=== PATIENT | male | born 1955 | race Caucasian/White ===

== ENCOUNTER 2016-04-17 17:00 | Inpatient (IN) | payer OTHER ==
--- NOTE | 2016-04-17 17:15 | PDOC ---
History of Present Illness - General History Source: Patient Exam Limitations: No Limitations - History of Present Illness Initial Comments: 04/17/16 18:17 The patient is a 60 year old male presenting with his , with a significant past medical history of HTN, diabetes, AFIB, CHF, CAD s/p CABG, HLD and CKD, who presents to the emergency department after fall today. The notes that the patient's knees buckled and fell. He denies any loss of consciousness, head trauma or any other kind of trauma. The patient notes that the back of his legs hurt bilaterally, has had chest pain and has been experiencing shortness of breath since last night. He states that hie shortness of breath has been progressively worsening over the last month or so. He describes his chest pain as a pressure, that is mild in nature, without radiation or modifying factors. He reports that he has had a stress test in the past that was within normal limits. He states that the last time he saw his PMD was 03/28/2016. The patient denies chest pain, headache and dizziness. Denies fever, chills, nausea, vomit, diarrhea and constipation. Denies dysuria, frequency, urgency and hematuria. Allergies: Lisinopril, lyrica, gabapentin Past surgical history: CABG (x4) Social history: No alcohol, tobacco or drug use reported PMD: Dr. Anaya ([facility]) <Parag Squires - Last Filed: 04/17/16 19:16> - General History Source: Patient Exam Limitations: No Limitations <Ira Ramires - Last Filed: 04/18/16 09:53> - General Chief Complaint: Pain Stated Complaint: DIMAS LEG PAIN, DIFF BREATHING Time Seen by Provider: 04/17/16 17:14 Past History <Parag Squires - Last Filed: 04/17/16 19:16> - Past Medical History Anemia: Yes Asthma: No Cancer: No Cardiac Disorders: Yes (CAD) CVA: No COPD: No CHF: No Dementia: No Diabetes: Yes (2007) GI Disorders: Yes (GERD) Disorders: No HTN: Yes Hypercholesterolemia: Yes Liver Disease: No Psychiatric Problems: Yes (depression,) Seizures: No Thyroid Disease: No - Surgical History Abdominal Surgery: No Appendectomy: No Cardiac Surgery: Yes (quadriple bypass) Cholecystectomy: No Lung Surgery: No Neurologic Surgery: No Orthopedic Surgery: No - Immunization History Immunization Up to Date: Yes - Psycho/Social/Smoking Cessation Hx Anxiety: No Suicidal Ideation: No Smoking Status: No Smoking History: Former smoker Have you smoked in the past 12 months: No Number of Cigarettes Smoked Daily: 0 If you are a former smoker, when did you quit?: 2000 Hx Alcohol Use: No Drug/Substance Use Hx: No Substance Use Type: None Hx Substance Use Treatment: No <Ira Ramires - Last Filed: 04/18/16 09:53> - Past Medical History Allergies/Adverse Reactions: Allergies Allergy/AdvReac Type Severity Reaction Status Date / Time gabapentin Allergy Severe Verified 04/17/16 17:04 lisinopril Allergy Severe TONGUE Verified 04/17/16 17:04 SWELLING pregabalin [From Lyrica] Allergy Severe Swelling Verified 04/17/16 17:04 Home Medications: Ambulatory Orders Aspirin [ASA -] 81 mg PO DAILY 09/21/15 Carvedilol 25 mg PO BID 09/21/15 Cholecalciferol (Vitamin D3) [Vitamin D3] 1,000 unit PO DAILY 09/21/15 Clopidogrel Bisulfate [Clopidogrel] 75 mg PO DAILY 09/21/15 Fenofibrate 48 mg PO DAILY 09/21/15 Furosemide [Lasix -] 80 mg PO BID 09/21/15 Hydralazine HCl [Apresoline -] 25 mg PO BID 09/21/15 Isosorbide Dinitrate [Isordil -] 10 mg PO BID 09/21/15 Lovastatin [Altoprev] 40 mg PO DAILY 09/21/15 Multivitamins [Multivit ([facility] Formulary)] 1 tab PO DAILY 09/21/15 Sertraline HCl 50 mg PO HS 09/21/15 Trazodone HCl 200 mg PO HS 09/21/15 Diltiazem [Cardizem -] 30 mg PO TID #90 tablet 10/02/15 Sitagliptin Phosphate [Januvia] 25 mg PO DAILY #30 tablet 10/02/15 Tramadol HCl 50 mg PO Q8H PRN #15 tablet MDD 3 10/02/15 Review of Systems - Review of Systems Able to Perform ROS?: Yes Comments:: 04/17/16 18:17 GENERAL/CONSTITUTIONAL: No fever or chills. No weakness. HEAD, EYES, EARS, NOSE AND THROAT: No change in vision. No ear pain or discharge. No sore throat. CARDIOVASCULAR: +Chest pain and shortness of breath RESPIRATORY: No cough, wheezing, or hemoptysis. GASTROINTESTINAL: No nausea, vomiting, diarrhea or constipation. GENITOURINARY: No dysuria, frequency, or change in urination. MUSCULOSKELETAL: No joint or muscle swelling or pain. No neck or back pain. EXTREMITIES: +Bilateral lower extremity pain. SKIN: No rash NEUROLOGIC: No headache, vertigo, loss of consciousness, or change in strength/ sensation. ENDOCRINE: No increased thirst. No abnormal weight change <Parag Squires - Last Filed: 04/17/16 19:16> *Physical Exam - Vital Signs Last Vital Signs Temp Pulse Resp BP Pulse Ox 98.1 F 124 H 26 H 131/61 100 04/17/16 17:00 04/17/16 17:00 04/17/16 17:00 04/17/16 17:00 04/17/16 17:00 - Physical Exam Comments: 04/17/16 18:18 GENERAL: Awake, alert, and fully oriented, in no acute distress HEAD: No signs of trauma, normocephalic, atraumatic EYES: PERRLA, EOMI, sclera anicteric, conjunctiva clear ENT: Auricles normal inspection, hearing grossly normal, nares patent, oropharynx clear without exudates. Moist mucosa NECK: Normal ROM, supple, no lymphadenopathy, JVD, or masses LUNGS: Bibasilar crackles. Dyspnic with any exertion. No distress, speaks full sentences. HEART: Regular rate and rhythm, normal S1 and S2, no murmurs, rubs or gallops, peripheral pulses normal and equal bilaterally. ABDOMEN: +Ventral hernia right upper abdomen. Soft, nontender, normoactive bowel sounds. No guarding, no rebound. EXTREMITIES: 3+ pitting edema to the mid thigh bilaterally. Normal inspection, Normal range of motion. No clubbing or cyanosis. NEUROLOGICAL: Cranial nerves II through XII grossly intact. Normal speech, normal gait, no focal sensorimotor deficits SKIN: +Well healed midline surgical scar to the abdomen. Warm, Dry, normal turgor, no rashes or lesions noted. <Parag Squires - Last Filed: 04/17/16 19:16> Heart Score/ECG Review #1 ECG reviewed & interpreted by me at: 17:55 04/17/16 17:55 Twelve-lead EKG was performed and reviewed by me. There is normal sinus rhythm with a tachycardiac rate of 124 bpm. The axis is normal. The intervals are normal - pr:174ms, QRS:134ms (prolonged), QTc:442ms. <Ira Ramires - Last Filed: 04/18/16 09:53> ED Treatment Course - LABORATORY CBC & Chemistry Diagram: 04/17/16 17:30 04/17/16 17:30 - ADDITIONAL ORDERS Additional order review: Laboratory Results 04/17/16 04/17/16 04/17/16 17:30 17:30 17:30 INR 1.53 H Creatine Kinase 133 Urine Color Yellow Urine Appearance Clear Urine pH 5.0 Ur Specific [place] 1.010 Urine Protein 3+ H Urine Glucose (UA) Negative Urine Ketones Negative Urine Blood 1+ H Urine Nitrite Negative Urine Bilirubin Negative Urine Urobilinogen 0.2 e.u/dl Ur Leukocyte Esterase Trace 04/17/16 17:30 RBC 2.46 L D MCV 88.4 MCHC 32.3 RDW 13.1 MPV 8.3 Neutrophils % 77.3 Lymphocytes % 8.0 D Monocytes % 9.2 D Eosinophils % 3.1 Basophils % 2.4 H D - RADIOLOGY Radiograph Interpretation: 04/17/16 19:16 Chest X-Ray Reviewed by: Dr. Diane Leung Impression: Mild to moderate cardiomegaly without evidence of acute lung disease. - Medications Given in the ED: ED Medications Discontinued Medications Generic Name Dose Route Start Last Admin Trade Name Freq PRN Reason Stop Dose Admin Furosemide 40 mg 04/17/16 17:16 04/17/16 17:35 Lasix Injection - IVPB 04/17/16 17:17 40 mg ONCE ONE Administration <Parag Squires - Last Filed: 04/17/16 19:16> - LABORATORY CBC & Chemistry Diagram: 04/18/16 08:00 04/18/16 08:00 <Ira Ramires - Last Filed: 04/18/16 09:53> Medical Decision Making - Critical Care Time Total Critical Care Time (minutes): 60 Critical Care Statement: The care of this patient involved high complexity decision making to prevent further life threatening deterioration of the patient 's condition and/or to evalute & treat vital organ system(s) failure or risk of failure. - Medical Decision Making 04/17/16 17:14 A portion of this note was documented by scribe services under my direction. I have reviewed the details of the note, within reason, and agree with the documentation with the following case summary and management plan written by me. Nursing documentation reviewed and incorporated into medical decision making THis pt is a 60 yo M with a history of DM, HTN, HLD, CAD s/p CABG, paroxysmal Afib Presenting to the ER with a complaint of shortness of breath since last night Pt compliant with medications Sleeps upright, seated in a chair Limited ability to ambulate - walks a few steps before he gets short of breath Chest pain in bilateral upper chest, described as squeezing, rated 6/10, no radiation No cough No fevers or chills Bilateral lower extremity edema 04/17/16 18:04 Pt given Lasix 40mg IV Laboratory Tests 04/17/16 17:30 WBC 11.0 H Hgb 7.0 L D Hct 21.7 L D Plt Count 310 Neutrophils % 77.3 Lymphocytes % 8.0 D Hgb low Will give Blood with lasix 04/17/16 18:34 Laboratory Tests 04/17/16 04/17/16 17:30 17:30 Sodium 135 L Potassium 4.6 Chloride 98 Carbon Dioxide 18 L D Anion Gap 19 H BUN 141 H* D Creatinine 10.0 H* D Random Glucose 98 Creatine Kinase 133 Troponin I 0.10 D CXR: initial study poor Case reviewed with WET ROLLER Noemi Will admit to [facility] Pt may need HD Will contact Dr Weiss, per hospitalist request Case reviewed with Dr. Neema Brian Pt should be dialyzed in the morning. Patient should be given a total of 100 mg IV Lasix. I have reviewed this plan with the patient. Although initially hesitant to start dialysis when this was discussed with him several years ago by Dr. Jalloh, patient is thinking through the plan to have dialysis now. Pt feels that this will be the end of him to start dialysis He denies recent abx or NSAIDS He continues to make urine Pt will be transferred to [place] at [facility] He remains dyspneic, unable to exert himself, unable to lay flat Clinical Impression: fluid overloading, renal failure 04/18/16 09:52 <Ira Ramires - Last Filed: 04/18/16 09:53> *DC/Admit/Observation/Transfer - Attestations Scribe Attestion: 04/17/16 18:17 Documentation prepared by Parag Squires, acting as medical i d sales for Ira Ramires MD <Parag Squires - Last Filed: 04/17/16 19:16> - Discharge Dispostion Admit: Yes <Ira Ramires - Last Filed: 04/18/16 09:53> Diagnosis at time of Disposition: Renal failure CHF exacerbation Qualifiers: Congestive heart failure type: systolic Qualified Code(s): I50.23 - Acute on chronic systolic (congestive) heart failure Congestive heart failure Qualifiers: Congestive heart failure type: systolic Congestive heart failure chronicity: acute on chronic Qualified Code(s): I50.23 - Acute on chronic systolic ( congestive) heart failure Anemia Qualifiers: Anemia type: unspecified type Qualified Code(s): D64.9 - Anemia, unspecified - Discharge Dispostion Condition at time of disposition: Guarded - Referrals
[2016-04-17] MEDS ORDERED: FUROSEMIDE 40 MG/4 ML INJECTABLE VIAL IVPB ONE ×2 (17:16→18:53)
[2016-04-17 17:52] LABS: URINE APPEARANCE Clear; URINE BILIRUBIN Negative (NEGATIVE); URINE GLUCOSE (UA) Negative (NEGATIVE); URINE KETONE Negative (NEGATIVE); URINE LEUK ESTERASE Trace (NEGATIVE); URINE NITRITE Negative (NEGATIVE); URINE UROBILINOGEN 0.2 E.U/dl (0.2-1.0)
[2016-04-17 17:53] LABS: URINE BLOOD 1+ (NEGATIVE); URINE COLOR YELLOW; URINE PROTEIN 3+ (NEGATIVE)
[2016-04-17 17:54] LABS: MCHC 32.3 g/dl (32.0-35.9)
[2016-04-17 17:56] LABS: BASOPHIL 2.4 % (0-2.0); EOSINOPHIL 3.1 % (0-4.5); MCH 28.5 pg (25.7-33.7); MEAN CELL VOLUME 88.4 fl (80-96); MEAN PLT VOLUME 8.3 fl (7.5-11.1); NEUTROPHILS 77.3 % (42.8-82.8); PLATELET COUNT 310 K/MM3 (134-434); RDW 13.1 % (11.9-15.9)
[2016-04-17 18:04] LABS: INR 1.53 (0.82-1.09)
[2016-04-17 18:12] LABS: ALBUMIN 3.7 g/dl (3.5-5.0); BILIRUBIN,TOTAL 0.3 mg/dl (0.2-1.0); CALCIUM 8.9 mg/dl (8.4-10.2); MAGNESIUM 1.6 mg/dL (1.8-2.4); TOT PROT 7.1 g/dl (6.4-8.3)
[2016-04-17 18:18] LABS: TROPONIN I (DFP) 0.1 ng/ml (0.03-0.50)
[2016-04-17] MEDS ORDERED: traMADol HCL 50 MG TABLET PO PRN (18:34)
[2016-04-17] MEDS ORDERED: ACETAMINOPHEN 325 MG TABLET (FP) PO PRN (18:37)
[2016-04-17] MEDS ORDERED: ONDANSETRON 4 MG/2 ML VIAL IVPB PRN (18:37)
[2016-04-17] MEDS ORDERED: MAGNESIUM OXIDE 400 MG TABLET (FP) PO ONE (18:43)
[2016-04-17 18:48] LABS: URINE RBC 0-2 /hpf (0-3)
[2016-04-17 18:49] LABS: URINE BACTERIA FEW /hpf (NEGATIVE)
[2016-04-17] MEDS ORDERED: FUROSEMIDE 100 MG/10 ML INJECTABLE VIAL ONE (19:10)
[2016-04-17] MEDS ORDERED: SERTRALINE HCL 50 MG TABLET (FP) PO SCH (22:00)
[2016-04-17] MEDS ORDERED: dilTIAZem HCL 30 MG TABLET (FP) PO SCH (22:00)
[2016-04-17] MEDS ORDERED: traZODone HCL 100 MG TABLET (FP) PO SCH (22:00)
[2016-04-17] MEDS ORDERED: dilTIAZem HCL 30 MG TABLET (FP) ONE (22:24)
[2016-04-17] MEDS ORDERED: DOCUSATE SODIUM 100 MG CAPSULE (FP) PO ONE (22:24)
[2016-04-17] MEDS: DOCUSATE SODIUM 100 MG CAPSULE (FP) PO SCH ×2 (22:26→22:32)
[2016-04-17] MEDS ORDERED: HEMOQUE TEST 1 EACH EACH ONE (22:28)
[2016-04-17] MEDS ORDERED: traZODone HCL 50 MG TABLET (FP) ONE (22:36)
[2016-04-17] MEDS ORDERED: HEPARIN NA (PORCINE) 5,000 UNITS/ML 1ML VIAL ONE (22:38)
[2016-04-17] MEDS: hydrALAZINE HCL 25 MG TABLET (FP) PO SCH (22:50)
[2016-04-17] MEDS: CARVEDILOL 25 MG TABLET (FP) PO SCH (22:51)
[2016-04-17] MEDS: ISOSORBIDE DINITRATE 10 MG TABLET (FP) PO SCH (22:52)
--- NOTE | 2016-04-17 23:18 | HP ---
CHIEF COMPLAINT: SOB, B/L Lower Extremity Swelling, Bilateral shoulder pain, PCP: Dr. Jesse Anaya ([facility]) HISTORY OF PRESENT ILLNESS: This is a 60 y/o male with a past medical history of HTN, NIDDM, Afib (no AC), CHF, CAD s/p CABG, HLD, CKD Stage 5, Anemia, GERD, Depression. Who presents to the emergency department from [place] with increased SOB, bilateral lower extremity edema, s/p fall, bilateral shoulder pain x today. Patient reports having increased SOB, GUTIERREZ, orthopnea for 1 month worse today. Patient reports swelling and hardness to both legs with a fluid blister to his left foot x 1 week. Patient reports falling secondary to his knees "giving out", he denies hitting his head or LOC. Patient reports having bilateral anterior shoulder pain. Patient denies Chest Pain. Patient also reports having chronic diarrhea. Patient denies fever, chills, cough, dizziness, AP, N/V, constipation, dysuria. Patient has not had a baseline colonoscopy. He denies family history of Colorectal Ca. Patient has had admissions in the past for CHF and Renal Failure, he has refused HD in the past. ER course was notable for: (1) BUN 101, Cr 10 (2) BNP 29845 (3) Hgb 7.0 (4) Given Lasix 40, 60 mg in ED (5) EKG ST 120s Recent Travel: None PAST MEDICAL HISTORY: See HPI PAST SURGICAL HISTORY: See HPI Social History: Smoking: Former 4PPD x 18yrs- Quit 1999 Alcohol: Denies Drugs: Denies Lives with S.O., retired- [employer] Family History: Father: DC, age 86 Daughter: DC, age 33 Mother: Breast Ca, age 80 (after a Fall) Sister: Breast Ca Allergies gabapentin Allergy (Severe, Verified 04/17/16 17:04) lisinopril Allergy (Severe, Verified 04/17/16 17:04) TONGUE SWELLING pregabalin [From Lyrica] Allergy (Severe, Verified 04/17/16 17:04) Swelling HOME MEDICATIONS: Home Medications Medication Instructions Recorded Aspirin [ASA -] 81 mg PO DAILY 09/21/15 Carvedilol 25 mg PO BID 09/21/15 Cholecalciferol (Vitamin D3) 1,000 unit PO DAILY 09/21/15 [Vitamin D3] Clopidogrel Bisulfate [Clopidogrel] 75 mg PO DAILY 09/21/15 Fenofibrate 48 mg PO DAILY 09/21/15 Furosemide [Lasix -] 80 mg PO BID 09/21/15 Hydralazine HCl [Apresoline -] 25 mg PO BID 09/21/15 Isosorbide Dinitrate [Isordil -] 10 mg PO BID 09/21/15 Lovastatin [Altoprev] 40 mg PO DAILY 09/21/15 Multivitamins [Multivit ([facility] 1 tab PO DAILY 09/21/15 Formulary)] Sertraline HCl 50 mg PO HS 09/21/15 Trazodone HCl 200 mg PO HS 09/21/15 Diltiazem [Cardizem -] 30 mg PO TID #90 tablet 10/02/15 Sitagliptin Phosphate [Januvia] 25 mg PO DAILY #30 tablet 10/02/15 Tramadol HCl 50 mg PO Q8H PRN #15 tablet MDD 3 10/02/15 REVIEW OF SYSTEMS CONSTITUTIONAL: weight change Absent: fever, chills, diaphoresis, generalized weakness, malaise, loss of appetite HEENT: Absent: rhinorrhea, nasal congestion, throat pain, throat swelling, difficulty swallowing, mouth swelling, ear pain, eye pain, visual changes CARDIOVASCULAR: peripheral edema Absent: chest pain, syncope, palpitations, irregular heart rate, lightheadedness RESPIRATORY: shortness of breath, dyspnea with exertion, orthopnea Absent: cough, wheezing, stridor, hemoptysis GASTROINTESTINAL: abdominal distension, diarrhea Absent: nausea, vomiting, constipation, melena, hematochezia GENITOURINARY: Absent: dysuria, frequency, urgency, hesitancy, hematuria, flank pain, genital pain MUSCULOSKELETAL: bilateral shoulder pain Absent: myalgia, arthralgia, joint swelling, back pain, neck pain SKIN: itching to lower legs Absent: rash, pallor HEMATOLOGIC/IMMUNOLOGIC: Absent: easy bleeding, easy bruising, lymphadenopathy, frequent infections ENDOCRINE: Absent: unexplained weight gain, unexplained weight loss, heat intolerance, cold intolerance NEUROLOGIC: Absent: headache, focal weakness or paresthesias, dizziness, unsteady gait, seizure, mental status changes, bladder or bowel incontinence PSYCHIATRIC: Absent: anxiety, depression, suicidal or homicidal ideation, hallucinations. PHYSICAL EXAMINATION Vital Signs - 24 hr 04/17/16 04/17/1604/17/17 17:00 17:05 19:01 Temperature 98.1 F Pulse Rate 124 H 121 H Pulse Rate [ 121 H Left Apical] Respiratory 26 H 24 Rate Blood Pressure 131/61 Blood Pressure 131/65 [Right Arm] O2 Sat by Pulse 100 98 99 Oximetry (%) 04/17/16 04/17/16 20:00 22:10 Temperature Pulse Rate Pulse Rate [ 123 H 118 H Left Apical] Respiratory 24 22 Rate Blood Pressure Blood Pressure 127/64 141/82 [Right Arm] O2 Sat by Pulse 99 98 Oximetry (%) GENERAL: Awake, alert, and fully oriented, obese in no acute distress. HEAD: Normal with no signs of trauma. EYES: Pupils equal, round and reactive to light, extraocular movements intact, sclera anicteric, conjunctiva clear. No lid lag. EARS, NOSE, THROAT: Ears normal, nares patent, oropharynx clear without exudates. Moist mucous membranes. NECK: Normal range of motion, supple without lymphadenopathy, JVD, or masses. LUNGS: Breath sounds equal, clear to auscultation bilaterally. No wheezes, and no crackles. No accessory muscle use. HEART: Irregular rate and rhythm, normal S1 and S2 without murmur, rub or gallop. ABDOMEN: Obese, distended, Hiatal Hernia, Soft, nontender, normoactive bowel sounds, no guarding, no rebound, no masses. No hepatomegaly or splenomegaly. MUSCULOSKELETAL: Limited range of motion at all joints. Tenderness bilateral upper thighs No bony deformities No CVA tenderness. UPPER EXTREMITIES: 2+ pulses, warm, well-perfused. No cyanosis. No clubbing. Cap refill <2 seconds. No peripheral edema. LOWER EXTREMITIES: 2+ pulses, warm, well-perfused. No calf tenderness. +2>3 L>R pitting peripheral edema from upper thighs down to shins NEUROLOGICAL: Cranial nerves II-XII intact. Normal speech. Gait not observed. PSYCHIATRIC: Cooperative. Good eye contact. Appropriate mood and affect. SKIN: Warm, dry, normal turgor, no rashes. +fluid filled blister pea size to L- great toe, vascular stasis ulcer with eschar to left anterior leg, healed ulcer to his . vascular stasis ulcer with erythema to right anterior leg, +tattoo noted Laboratory Results - last 24 hr 04/17/16 04/17/16 04/17/16 17:30 17:30 17:30 WBC 11.0 H RBC 2.46 L D Hgb 7.0 L D Hct 21.7 L D MCV 88.4 MCHC 32.3 RDW 13.1 Plt Count 310 MPV 8.3 Neutrophils % 77.3 Lymphocytes % 8.0 D Monocytes % 9.2 D Eosinophils % 3.1 Basophils % 2.4 H D INR 1.53 H Sodium 135 L Potassium 4.6 Chloride 98 Carbon Dioxide 18 L D Anion Gap 19 H BUN 141 H* D Creatinine 10.0 H* D Creat Clearance w eGFR 5.31 Random Glucose 98 Calcium 8.9 Magnesium 1.6 L Total Bilirubin 0.3 D AST 9 L D ALT 13 D Alkaline Phosphatase 31 L Creatine Kinase Troponin I B-Natriuretic Peptide Total Protein 7.1 Albumin 3.7 Urine Color Urine Appearance Urine pH Ur Specific [place] Urine Protein Urine Glucose (UA) Urine Ketones Urine Blood Urine Nitrite Urine Bilirubin Urine Urobilinogen Ur Leukocyte Esterase Urine RBC Urine WBC Urine Bacteria Blood Type Antibody Screen Crossmatch 04/17/16 04/17/16 04/17/16 17:30 17:30 17:30 WBC RBC Hgb Hct MCV MCHC RDW Plt Count MPV Neutrophils % Lymphocytes % Monocytes % Eosinophils % Basophils % INR Sodium Potassium Chloride Carbon Dioxide Anion Gap BUN Creatinine Creat Clearance w eGFR Random Glucose Calcium Magnesium Total Bilirubin AST ALT Alkaline Phosphatase Creatine Kinase 133 Troponin I 0.10 D B-Natriuretic Peptide 21201.35 H Total Protein Albumin Urine Color Yellow Urine Appearance Clear Urine pH 5.0 Ur Specific [place] 1.010 Urine Protein 3+ H Urine Glucose (UA) Negative Urine Ketones Negative Urine Blood 1+ H Urine Nitrite Negative Urine Bilirubin Negative Urine Urobilinogen 0.2 e.u/dl Ur Leukocyte Esterase Trace Urine RBC 0-2 Urine WBC 10-15 Urine Bacteria Few Blood Type Antibody Screen Crossmatch 04/17/16 18:05 WBC RBC Hgb Hct MCV MCHC RDW Plt Count MPV Neutrophils % Lymphocytes % Monocytes % Eosinophils % Basophils % INR Sodium Potassium Chloride Carbon Dioxide Anion Gap BUN Creatinine Creat Clearance w eGFR Random Glucose Calcium Magnesium Total Bilirubin AST ALT Alkaline Phosphatase Creatine Kinase Troponin I B-Natriuretic Peptide Total Protein Albumin Urine Color Urine Appearance Urine pH Ur Specific [place] Urine Protein Urine Glucose (UA) Urine Ketones Urine Blood Urine Nitrite Urine Bilirubin Urine Urobilinogen Ur Leukocyte Esterase Urine RBC Urine WBC Urine Bacteria Blood Type O POSITIVE Antibody Screen Negative Crossmatch See Detail ASSESSMENT/PLAN: This is a 60 y/o male with a PMHx of: CKD Stage 5, CHF, CAD, Afib (no AC), DM, HTN, HLD, Anemia, GERD, Depression. Presents to the ED for SOB, lower leg swelling, s/p fall, bilateral shoulder pain. Admitted for Fluid Overload, Renal Failure for further evaluation of their emergent condition. Plan: 1. Acute on Chronic CHF- Lasix 2. Renal Failure- need HD 3. Anemia- PRBCs 4. B/L Shoulder Pain FEN: Fluid Restriction < 1L, Replete Mg, Low Na, 1800 ADA, Renal Diet Code Status: Full Code Dispo: Requires Inpatient Care Problem List - Problem (1) CHF exacerbation Assessment/Plan: - Tele monitoring - Appreciate Cardiology Consult - Lasix given in ED, will continue - BNP 90244 decreased from last year 83167 - Chest Xray showed cardiomegaly - O2 - Strict INOs - Daily weights - Monitor BMP - Echo done on 09/29/15- mild-mod global hypokinesis LV, severely dilated LA, mod- severe MR, severe TR, RVSP- normal Code(s): I50.9 - HEART FAILURE, UNSPECIFIED Qualifiers: Congestive heart failure type: systolic Qualified Code(s): I50.23 - Acute on chronic systolic (congestive) heart failure (2) Renal failure Assessment/Plan: - Stage 5 - Appreciate Renal Consult- possible HD, notified and aware by ED - Monitor renal function - Avoid nephrotoxic drugs Code(s): N19 - UNSPECIFIED KIDNEY FAILURE (3) End stage renal disease Assessment/Plan: - See Above Code(s): N18.6 - END STAGE RENAL DISEASE (4) Dyspnea on exertion Assessment/Plan: - Likely secondary to Acute on Chronic HF - Chest Xray report- mild to mod CM without acute lung disease - O2 Code(s): R06.09 - OTHER FORMS OF DYSPNEA (5) Anemia Assessment/Plan: - Likely secondary to Cardiorenal Syndrome - Baseline 9-12 - Transfuse for Hgb < 7.0 - Repeat Hgb 6.7 - PRBC x1 now, then Lasix post transfusion - Monitor CBC - Stool Occult-pending Code(s): D64.9 - ANEMIA, UNSPECIFIED Qualifiers: Anemia type: unspecified type Qualified Code(s): D64.9 - Anemia, unspecified (6) Atrial fibrillation with RVR Assessment/Plan: - Hx Paroxysmal Afib (no AC) - [id number] 3 - EKG reviewed- ST 124 bpm prolonged QT, change compared to prior study Code(s): I48.91 - UNSPECIFIED ATRIAL FIBRILLATION (7) HTN (hypertension) Assessment/Plan: - Controlled - Continue home meds Code(s): I10 - ESSENTIAL (PRIMARY) HYPERTENSION (8) CAD, multiple vessel Assessment/Plan: - Hx CABG - Continue home meds Code(s): I25.10 - ATHSCL HEART DISEASE OF [place] CORONARY ARTERY W/O ANG PCTRS (9) Diarrhea Assessment/Plan: - Stool Studies r/o C Diff, toxins, parasites - Monitor BMP - No IVF 2/2 Fluid Overload Code(s): R19.7 - DIARRHEA, UNSPECIFIED (10) Bilateral shoulder pain Assessment/Plan: - On exam- patient has ROM, no obvious bone deformity or dislocation - Will monitor overnight, consider Xray if symptoms worsen Code(s): M25.511 - PAIN IN RIGHT SHOULDER M25.512 - PAIN IN LEFT SHOULDER (11) Diabetes Assessment/Plan: - Controlled - BGMs - ISS Code(s): E11.9 - TYPE 2 DIABETES MELLITUS WITHOUT COMPLICATIONS (12) Chronic venous stasis dermatitis of both lower extremities Assessment/Plan: - Wound Care Nurse Code(s): I83.11 - VARICOSE VEINS OF RIGHT LOWER EXTREMITY WITH INFLAMMATION I83.12 - VARICOSE VEINS OF LEFT LOWER EXTREMITY WITH INFLAMMATION (13) DVT prophylaxis Assessment/Plan: - OOB - SCDs (post dupplex study results r/o DVT) - Hold AC 2/2 Anemia Code(s): YXA0505 - Visit type - Emergency Visit Emergency Visit: Yes ED Registration Date: 04/17/16 Care time: The patient presented to the Emergency Department on the above date and was hospitalized for further evaluation of their emergent condition. - New Patient This patient is new to me today: Yes Date on this admission: 04/17/16 - Critical Care Critical Care patient: No
[2016-04-18] MEDS: INSULIN SLIDING SCALE (NOVOLOG) 1 VIAL SQ SCH ×5 (01:12→22:46)
[2016-04-18 02:35] LABS: BASOPHIL 0.8 % (0-2.0); EOSINOPHIL 3.7 % (0-4.5); MCH 29.8 pg (25.7-33.7); MCHC 33.2 g/dl (32.0-35.9); MEAN CELL VOLUME 89.7 fl (80-96); NEUTROPHILS 73.2 % (42.8-82.8); PLATELET COUNT 238 K/MM3 (134-434); RDW 13.9 % (11.9-15.9); WHITE BLOOD COUNT 8.1 K/mm3 (4.0-10.0)
[2016-04-18 02:40] VITALS: BMI 32.7
[2016-04-18] MEDS ORDERED: FUROSEMIDE 40 MG/4 ML INJECTABLE VIAL IVPUSH SCH (06:00)
[2016-04-18] MEDS ORDERED: DOCUSATE SODIUM 100 MG CAPSULE (FP) PO SCH (06:00)
[2016-04-18] MEDS ORDERED: dilTIAZem HCL 30 MG TABLET (FP) PO SCH ×2 (06:00→14:00)
--- NOTE | 2016-04-18 08:56 | CONSULT ---
Consult - text type - Consultation Consultation Note: Renal Consult for LISA/CKD Stage 5 This is a 60 year old gentleman with PMhx of CKD Stage 5 with nephrotic range proteinuria, CAD s/p CABG, DM Type 2, Depression, CHF who presented to [facility] ED s/p fall with LE pain and swelling and found to have BUN/Cr of 141/10 ( baseline Cr ~6). Pt has known about advanced CKD in the past and and been refusing dialysis. Pt reports feeling weak/fatigued with worsening LE swelling despite diuretics. + sleep/wake disturbance. + Sour/Metallic taste in the mouth. No flank pain. NO NASID use. No recent contrast exposure. No recent Abx use. Reports good urine output. Denies any Sob, chest pain, fever, chills. + Chronic diarrhea. No vomiting. PMhx: As above Allergies: As listed in EMR Family Hx: NC Social Hx: Former smoker ROS: As per HPI all other pertinent ros negative Home Meds: Home Medications Medication Instructions Recorded Aspirin [ASA -] 81 mg PO DAILY 09/21/15 Carvedilol 25 mg PO BID 09/21/15 Cholecalciferol (Vitamin D3) 1,000 unit PO DAILY 09/21/15 [Vitamin D3] Clopidogrel Bisulfate [Clopidogrel] 75 mg PO DAILY 09/21/15 Fenofibrate 48 mg PO DAILY 09/21/15 Furosemide [Lasix -] 80 mg PO BID 09/21/15 Hydralazine HCl [Apresoline -] 25 mg PO BID 09/21/15 Isosorbide Dinitrate [Isordil -] 10 mg PO BID 09/21/15 Lovastatin [Altoprev] 40 mg PO DAILY 09/21/15 Multivitamins [Multivit ([facility] 1 tab PO DAILY 09/21/15 Formulary)] Sertraline HCl 50 mg PO HS 09/21/15 Trazodone HCl 200 mg PO HS 09/21/15 Diltiazem [Cardizem -] 30 mg PO TID #90 tablet 10/02/15 Sitagliptin Phosphate [Januvia] 25 mg PO DAILY #30 tablet 10/02/15 Tramadol HCl 50 mg PO Q8H PRN #15 tablet MDD 3 10/02/15 Vital Signs Temperature 97.5 F L 04/18/16 07:00 Pulse Rate 84 04/18/16 07:00 Respiratory Rate 20 04/18/16 07:00 Blood Pressure 141/70 04/18/16 07:00 O2 Sat by Pulse Oximetry (%) 98 04/18/16 00:30 Intake & Output 04/15/16 04/16/16 04/17/16 04/18/16 23:59 23:59 23:59 23:59 Intake Total 360 Output Total 400 1125 Balance -400 -765 Weight 229 lb 228 lb 2 oz Gen: awake and alert HEENT: NC/AT, MMM, No JVD CVS: RRR, No M/R Lungs: CTA, no rales or wheeze Abd: soft NT/ND Ext: 2+ edema extending up to upper thigh. Muscle wasting Neuro: AAOX3, no focal defects. + mild asterixis. Laboratory Tests 04/17/16 04/17/16 04/17/16 17:30 17:30 17:30 WBC RBC Hgb Hct Plt Count Sodium 135 L Potassium 4.6 Chloride 98 Carbon Dioxide 18 L D Anion Gap 19 H BUN 141 H* D Creatinine 10.0 H* D Creat Clearance w eGFR 5.31 Calcium 8.9 B-Natriuretic Peptide 55426.35 H Albumin 3.7 Urine Protein 3+ H Urine Blood 1+ H 04/18/16 02:15 WBC 8.1 RBC 2.23 L D Hgb 6.7 L* D Hct 20.0 L D Plt Count 238 D Sodium Potassium Chloride Carbon Dioxide Anion Gap BUN Creatinine Creat Clearance w eGFR Calcium B-Natriuretic Peptide Albumin Urine Protein Urine Blood Current Medications Acetaminophen (Tylenol -) 650 mg PO Q6H PRN PRN Reason: FEVER OR PAIN Aspirin (Asa -) 81 mg PO DAILY [facility] Atorvastatin Calcium (Lipitor -) 10 mg PO HS [facility] Carvedilol (Coreg -) 25 mg PO BID [facility] Last Admin: 04/17/16 22:51 Dose: 25 mg Cholecalciferol (Vitamin D3 -) 1,000 unit PO DAILY [facility] Clopidogrel Bisulfate (Plavix -) 75 mg PO DAILY [facility] Diltiazem HCl (Cardizem -) 30 mg PO TID [facility] Fenofibric Acid (Trilipix -) 45 mg PO DAILY [facility] Furosemide (Lasix Injection -) 80 mg IVPUSH BID@0600,1400 [facility] Hydralazine HCl (Apresoline -) 25 mg PO BID [facility] Last Admin: 04/17/16 22:50 Dose: 25 mg Insulin Aspart (Novolog Vial Sliding Scale -) 1 vial SQ ACHS MARY PRN Reason: Protocol Last Admin: 04/18/16 06:07 Dose: Not Given Isosorbide Dinitrate (Isordil -) 10 mg PO BID [facility] Last Admin: 04/17/16 22:52 Dose: 10 mg Multivitamins/Minerals/Vitamin C (Tab-A-Vit -) 1 tab PO DAILY MARY Ondansetron HCl (Zofran Injection) 4 mg IVPB Q6H PRN PRN Reason: NAUSEA Sertraline HCl (Zoloft -) 50 mg PO HS [facility] Last Admin: 04/17/16 22:50 Dose: 50 mg Trazodone HCl (Desyrel -) 200 mg PO HS [facility] Last Admin: 04/17/16 22:51 Dose: 200 mg A/P 60 year old gentleman with PMhx of CKD Stage 5 with nephrotic range proteinuria , CAD s/p CABG, DM Type 2, Depression, CHF who presented to [facility] ED s/p fall with LE pain and swelling and found to have BUN/Cr of 141/10 (baseline Cr ~ 6). #Progressive CKD Stage 5 with proteinuria with uremic symptoms warranting dialysis Risks and Benefits of dialysis were discussed with the patient He understands that he has advanced CKD and needs dialysis at this time but is asking for some time to make a decision Will follow up with pt later this morning regarding decision. Risks of hyperkalemia, worsening fluid overload, uremia were explained to the patient. Vascular on board for possible permacath insertion Continue Lasix 80mg IV BID Start sodium bicarb 650mg BID Strict I and O Renal Diet Avoid RONIT/ARBs, NSaIDs Dose all meds for Cr Cl less then 10 CHeck Kidney and Bladder US AM labs pending #LE edema/CHF Check ECHO Continue IV lasix BID Cardiology Evaluation #DM Type 2 Check Hgb A1c Continue insulin sliding scale #CAD Continue Coreg not on ASA? WIll follow closely Thank you Won Weiss DO
[2016-04-18 09:04] LABS: BASOPHIL 0.8 % (0-2.0); EOSINOPHIL 3.5 % (0-4.5); MCH 29.9 pg (25.7-33.7); MCHC 33.4 g/dl (32.0-35.9); MEAN CELL VOLUME 89.6 fl (80-96); MEAN PLT VOLUME 8.2 fl (7.5-11.1); NEUTROPHILS 78.3 % (42.8-82.8); PLATELET COUNT 240 K/MM3 (134-434); RDW 14.2 % (11.9-15.9); WHITE BLOOD COUNT 8.4 K/mm3 (4.0-10.0)
[2016-04-18 09:09] LABS: ALBUMIN 3.6 g/dl (3.4-5.0); BILIRUBIN,TOTAL 0.6 mg/dL (0.2-1.0); CALCIUM 8.3 mg/dL (8.5-10.1); MAGNESIUM 1.9 mg/dL (1.8-2.4); TOT PROT 6.9 g/dl (6.4-8.2)
--- NOTE | 2016-04-18 09:14 | PN ---
Progress Note (short form) - Note Progress Note: Pt seen briefly while he was getting an echo. He is uncertain about if he will agree to HD, I spoke with Dr. Abhishek Upton and his BUN/creatine are rising. He has recommend to start HD. The patient has not had breakfast, I removed his tray and made him NPO. I explained to the patient that if he should agree then Dr. Otero would be available for permacath placement today. CBC, BMP 04/18/16 08:00 Laboratory Tests 04/17/16 04/17/16 04/17/16 17:30 17:30 17:30 INR 1.53 H Sodium 135 L Potassium 4.6 Chloride 98 Carbon Dioxide 18 L D Anion Gap 19 H BUN 141 H* D Creatinine 10.0 H* D Creat Clearance w eGFR 5.31 Random Glucose 98 Calcium 8.9 Magnesium 1.6 L Total Bilirubin 0.3 D AST 9 L D ALT 13 D Alkaline Phosphatase 31 L Creatine Kinase Troponin I B-Natriuretic Peptide 46092.35 H 04/17/16 17:30 INR Sodium Potassium Chloride Carbon Dioxide Anion Gap BUN Creatinine Creat Clearance w eGFR Random Glucose Calcium Magnesium Total Bilirubin AST ALT Alkaline Phosphatase Creatine Kinase 133 Troponin I 0.10 D B-Natriuretic Peptide Problem List - Problems (1) End stage renal disease Assessment/Plan: for possible permacath placement, Continue NPO and await patients decision Code(s): N18.6 - END STAGE RENAL DISEASE
[2016-04-18 09:16] LABS: TROPONIN I 0.08 ng/ml (0.00-0.05)
[2016-04-18 09:31] LABS: PHOSPHOROUS 9.6 mg/dL (2.5-4.9)
[2016-04-18] MEDS ORDERED: FENOFIBRIC ACID 45 MG CAP PO SCH (10:00)
[2016-04-18] MEDS ORDERED: MULTIVITAMINS (DAILY MVI) TABLET (FP) PO SCH (10:00)
[2016-04-18] MEDS ORDERED: CHOLECALCIFEROL (VITAMIN D3) 1,000 UNIT TABLET (FP) PO SCH (10:00)
[2016-04-18] MEDS ORDERED: HEPARIN NA (PORCINE) 5,000 UNITS/ML 1ML VIAL SQ SCH (10:00)
[2016-04-18] MEDS ORDERED: ASPIRIN 81 MG CHEWABLE TABLETS PO SCH (10:00)
[2016-04-18] MEDS ORDERED: CLOPIDOGREL BISULFATE 75 MG TABLET (FP) PO SCH (10:00)
[2016-04-18] MEDS ORDERED: SODIUM BICARBONATE 650 MG TABLET PO SCH (10:00)
[2016-04-18] MEDS ORDERED: DESMOPRESSIN ACETATE 4 MCG/ML AMP IVPB ONE ×2 (11:33→13:53)
--- NOTE | 2016-04-18 11:42 | CON.CARD ---
Cardiology Consult (text) - Consultation Consultation Note: CC: LISA hpi: 60 m hx htn, hld, dm, cabg (04/2006), ESRD, afib, syst chf, here s/p fall 2 /2 weakness and LE pain and found to have worsened creatinine. At baseline has minimal activity, unable to walk up more than one step at a time before resting due to pain and GUTIERREZ, same limitations after walking < 1/2 block. Recent progressive weakness/fatigue and LE pain has made him more sedentary. + worsened LE edema over past few days. No orthopnea, pnd, palps, dizziness, cp, bleeding or transient neurologic symptoms. No f/c/s, n/v/d, cough, h/a, vision changes. Chronic poor po intake. Chronic RUQ abdominal discomfort since he had surgery there (per patient had skin graft to repair sternal wound) In ER noted to have worsening of his ESRD (previously declined HD). Now amenable. Plan for HD access today. Would again like to see Dr. Thomas for cardiology pmh: per hpi psh: cabg social: ex tob fam: no premature cad, scd ros: per hpi meds: Ambulatory Orders Aspirin [ASA -] 81 mg PO DAILY 09/21/15 Carvedilol 25 mg PO BID 09/21/15 Cholecalciferol (Vitamin D3) [Vitamin D3] 1,000 unit PO DAILY 09/21/15 Clopidogrel Bisulfate [Clopidogrel] 75 mg PO DAILY 09/21/15 Fenofibrate 48 mg PO DAILY 09/21/15 Furosemide [Lasix -] 80 mg PO BID 09/21/15 Hydralazine HCl [Apresoline -] 25 mg PO BID 09/21/15 Isosorbide Dinitrate [Isordil -] 10 mg PO BID 09/21/15 Lovastatin [Altoprev] 40 mg PO DAILY 09/21/15 Multivitamins [Multivit ([facility] Formulary)] 1 tab PO DAILY 09/21/15 Sertraline HCl 50 mg PO HS 09/21/15 Trazodone HCl 200 mg PO HS 09/21/15 Diltiazem [Cardizem -] 30 mg PO TID #90 tablet 10/02/15 Sitagliptin Phosphate [Januvia] 25 mg PO DAILY #30 tablet 10/02/15 Tramadol HCl 50 mg PO Q8H PRN #15 tablet MDD 3 10/02/15 Current Medications Acetaminophen (Tylenol -) 650 mg PO Q6H PRN PRN Reason: FEVER OR PAIN Aspirin (Asa -) 81 mg PO DAILY [facility] Atorvastatin Calcium (Lipitor -) 10 mg PO HS [facility] Carvedilol (Coreg -) 25 mg PO BID [facility] Last Admin: 04/17/16 22:51 Dose: 25 mg Cholecalciferol (Vitamin D3 -) 1,000 unit PO DAILY [facility] Clopidogrel Bisulfate (Plavix -) 75 mg PO DAILY [facility] Desmopressin Acetate (Ddavp Injection -) 20 mcg IVPB ONCE ONE Stop: 04/18/16 11:34 Diltiazem HCl (Cardizem -) 30 mg PO TID [facility] Fenofibric Acid (Trilipix -) 45 mg PO DAILY [facility] Furosemide (Lasix Injection -) 80 mg IVPUSH BID@0600,1400 [facility] Last Admin: 04/18/16 10:42 Dose: 80 mg Hydralazine HCl (Apresoline -) 25 mg PO BID [facility] Last Admin: 04/17/16 22:50 Dose: 25 mg Insulin Aspart (Novolog Vial Sliding Scale -) 1 vial SQ ACHS [facility] PRN Reason: Protocol Last Admin: 04/18/16 06:07 Dose: Not Given Isosorbide Dinitrate (Isordil -) 10 mg PO BID [facility] Last Admin: 04/17/16 22:52 Dose: 10 mg Multivitamins/Minerals/Vitamin C (Tab-A-Vit -) 1 tab PO DAILY [facility] Ondansetron HCl (Zofran Injection) 4 mg IVPB Q6H PRN PRN Reason: NAUSEA Sertraline HCl (Zoloft -) 50 mg PO HS [facility] Last Admin: 04/17/16 22:50 Dose: 50 mg Sodium Bicarbonate (Sodium Bicarbonate -) 650 mg PO BID [facility] Trazodone HCl (Desyrel -) 200 mg PO HS [facility] Last Admin: 04/17/16 22:51 Dose: 200 mg pe: Vital Signs - 24 hr 04/17/16 04/17/16 04/17/16 17:00 17:05 19:01 Temperature 98.1 F Pulse Rate 124 H 121 H Pulse Rate [ 121 H Left Apical] Respiratory 26 H 24 Rate Blood Pressure 131/61 Blood Pressure 131/65 [Right Arm] O2 Sat by Pulse 100 98 99 Oximetry (%) 04/17/16 04/17/16 04/17/16 20:00 22:10 23:15 Temperature Pulse Rate Pulse Rate [ 123 H 118 H 123 H Left Apical] Respiratory 24 22 20 Rate Blood Pressure Blood Pressure 127/64 141/82 119/71 [Right Arm] O2 Sat by Pulse 99 98 100 Oximetry (%) 04/18/16 04/18/16 04/18/16 00:30 03:00 07:00 Temperature 98.5 F 98.2 F 97.5 F L Pulse Rate 80 78 84 Pulse Rate [ Left Apical] Respiratory 20 20 20 Rate Blood Pressure 112/59 113/51 141/70 Blood Pressure [Right Arm] O2 Sat by Pulse 98 Oximetry (%) Intake & Output 04/16/16 04/17/16 04/18/16 04/19/16 07:59 07:59 07:59 07:59 Intake Total 360 Output Total 1525 Balance -1165 Weight 228 lb 2 oz nad, lying flat elevated JVD rrr s1s2 2/6 murmur at apex. bibasilar crakles, nl eff aaox3 1+ LE edema with erythema, healed wounds abd pos bs, tender at ruq, distended/obese diminished dp pt no jaundice diaphoresis no carotid bruits. CBC, BMP 04/18/16 08:00 04/18/16 08:00 Laboratory Tests 04/17/16 04/17/16 04/17/16 17:30 17:30 17:30 Hgb 7.0 L D INR 1.53 H Magnesium Total Bilirubin AST ALT Alkaline Phosphatase Creatine Kinase 133 Troponin I 0.10 D Albumin 04/18/16 04/18/16 02:15 08:00 Hgb 6.7 L* D INR Magnesium 1.9 Total Bilirubin 0.6 D AST 5 L D ALT 17 D Alkaline Phosphatase 31 L D Creatine Kinase 120 Troponin I 0.08 H D Albumin 3.6 ecg: poor baseline. likely atrial flutter, VR 124 bpm. IVCD. no ischemic changes. tele reviewed today: aflutter. overall rate controlled with intermittent RVR in 120's. cxr images and report reviewed. Per report, no pulmonary pathology. But by my review, inadequate penetration especially at left base. Unable to exclude basilar effusions/congestion. 09/2015: mod lve, mild-mod dec lvef, global HK, nl rv, mod-sev mr, sev tr, marixa, nl rvsp a/p: 60 m hx htn, hld, dm, cabg (04/2006), ckd, afib, syst chf, her with leg blistering, leaking. 60 m hx htn, hld, dm, cabg (04/2006), ESRD, afib, syst chf, here s/p fall 2/2 weakness and LE pain and found to have worsened creatinine now with plan for HD initiation. syst chf: -volume up. Con't lasix 80 mg IV BID. Plan for diuresis with HD once access is available. -echo pending to see lvef. has refused icd in past -would change coreg to metoprolol for rate as mentioned below, con't hydralazine /isordil -would stop diltiazem in light of cardiomyopathy. ESRD - renal following, plan for HD as mentioned htn: -controlled on home meds. adjustments as mentioned hld: -cont statin cad s/p cabg: -intermediate trop elevation with flat trend (in setting of severe renal dysfunction), nl CK --> not c/w acs, no anginal sxs. EKG without ischemic changes. -echo pending to see lvef -cont home statin, bb, asa afib/flutter: -borderline rate control, Will switch to toprol from coreg. Stopping diltiazem b/c of cardiomyopathy. -has not been on AC in the past. cont asa, plavix for now, but will need to readdress AC after procedure. anemia - likely 2/2 ESRD. further eval/mgm't per pmd/renal - s/p transfusion 04/17.
--- NOTE | 2016-04-18 11:57 | PN ---
Physical Exam: SUBJECTIVE: Patient seen and examined at bedside. Came to the hospital because of terrible pains in his thighs which started 1 1/2 weeks ago. Almost impossible to walk due to the pain. Found to have BUN/Cr 141/10.0 Has agreed today to start hemodialysis. OBJECTIVE: Vital Signs Period Temp Pulse Resp BP Sys/Ledbetter Pulse Ox Last 24 Hr 97.5 F-98.2 F 78-84 20-20 113-141/51-70 GENERAL: The patient is awake, alert, and fully oriented, in no acute distress. HEAD: Normal with no signs of trauma. EYES: PERRL, extraocular movements intact, sclera anicteric, conjunctiva clear. No ptosis. LUNGS: Breath sounds equal, clear to auscultation bilaterally, no wheezes, no crackles, no accessory muscle use. HEART: Regular rate and rhythm, S1, S2 without murmur, rub or gallop. ABDOMEN: Distended, tympanic belly; RUQ hernia non-incarcerated; normoactive bowel sounds LOWER EXTREMITIES: trace bilateral pedal edema; bilateral upper thighs are exquisitely tender, areas of hardened muscle with well-defined palpable borders NEUROLOGICAL: Cranial nerves II through XII grossly intact. Normal speech, gait not observed. PSYCH: Normal mood, normal affect. SKIN: 2cm x 3cm fluid-filled blister on right great toe Laboratory Results - last 24 hr 04/18/16 04/18/16 04/18/16 02:15 02:15 04:17 WBC 8.1 RBC 2.23 L D Hgb 6.7 L* D Hct 20.0 L D MCV 89.7 MCHC 33.2 RDW 13.9 Plt Count 238 D MPV 8.0 Neutrophils % 73.2 Lymphocytes % 11.6 Monocytes % 10.7 H Eosinophils % 3.7 D Basophils % 0.8 PTT (Actin FS) 37.4 H Sodium Potassium Chloride Carbon Dioxide Anion Gap BUN Creatinine Creat Clearance w eGFR POC Glucometer Random Glucose Calcium Phosphorus Magnesium Total Bilirubin AST ALT Alkaline Phosphatase Creatine Kinase Troponin I Total Protein Albumin Stool Occult Blood Negative 04/18/16 04/18/16 04/18/16 05:46 08:00 08:00 WBC 8.4 RBC 2.70 L D Hgb 8.1 L D Hct 24.2 L D MCV 89.6 MCHC 33.4 RDW 14.2 Plt Count 240 MPV 8.2 Neutrophils % 78.3 Lymphocytes % 7.9 L D Monocytes % 9.5 Eosinophils % 3.5 Basophils % 0.8 PTT (Actin FS) Sodium 138 Potassium 4.2 Chloride 101 Carbon Dioxide 20 L Anion Gap 17 H BUN 145 H* D Creatinine 10.0 H* D Creat Clearance w eGFR 5.31 POC Glucometer 76 Random Glucose 72 L D Calcium 8.3 L Phosphorus 9.6 H* D Magnesium 1.9 Total Bilirubin 0.6 D AST 5 L D ALT 17 D Alkaline Phosphatase 31 L D Creatine Kinase 120 Troponin I 0.08 H D Total Protein 6.9 Albumin 3.6 Stool Occult Blood 04/18/16 08:38 WBC RBC Hgb Hct MCV MCHC RDW Plt Count MPV Neutrophils % Lymphocytes % Monocytes % Eosinophils % Basophils % PTT (Actin FS) Sodium Potassium Chloride Carbon Dioxide Anion Gap BUN Creatinine Creat Clearance w eGFR POC Glucometer Random Glucose Calcium Phosphorus Magnesium Total Bilirubin AST ALT Alkaline Phosphatase Creatine Kinase Troponin I Cancelled Total Protein Albumin Stool Occult Blood Active Medications Generic Name Dose Route Start Last Admin Trade Name Freq PRN Reason Stop Dose Admin Acetaminophen 650 mg 04/17/16 18:37 Tylenol - PO Q6H PRN FEVER OR PAIN Aspirin 81 mg 04/18/16 10:00 Asa - PO DAILY [facility] Atorvastatin Calcium 10 mg 04/18/16 22:00 Lipitor - PO HS MARY Carvedilol 25 mg 04/17/16 22:00 04/17/16 22:51 Coreg - PO 25 mg BID MARY Administration Cholecalciferol 1,000 unit 04/18/16 10:00 Vitamin D3 - PO DAILY [facility] Clopidogrel Bisulfate 75 mg 04/18/16 10:00 Plavix - PO DAILY [facility] Desmopressin Acetate 20 mcg 04/18/16 11:33 Ddavp Injection - IVPB 04/18/16 11:34 ONCE ONE Diltiazem HCl 30 mg 04/18/16 06:00 Cardizem - PO TID [facility] Fenofibric Acid 45 mg 04/18/16 10:00 Trilipix - PO DAILY [facility] Furosemide 80 mg 04/18/16 06:00 04/18/16 10:42 Lasix Injection - IVPUSH 80 mg BID@0600,1400 [facility] Administration Hydralazine HCl 25 mg 04/17/16 22:00 04/17/16 22:50 Apresoline - PO 25 mg BID MARY Administration Insulin Aspart 1 vial 04/17/16 22:00 04/18/16 06:07 Novolog Vial Sliding Scale - SQ Not Given ACHS [facility] Protocol Isosorbide Dinitrate 10 mg 04/17/16 22:00 04/17/16 22:52 Isordil - PO 10 mg BID MARY Administration Multivitamins/Minerals/Vitamin C 1 tab 04/18/16 10:00 Tab-A-Vit - PO DAILY MARY Ondansetron HCl 4 mg 04/17/16 18:37 Zofran Injection IVPB Q6H PRN NAUSEA Sertraline HCl 50 mg 04/17/16 22:00 04/17/16 22:50 Zoloft - PO 50 mg HS MARY Administration Sodium Bicarbonate 650 mg 04/18/16 10:00 Sodium Bicarbonate - PO BID MARY Trazodone HCl 200 mg 04/17/16 22:00 04/17/16 22:51 Desyrel - PO 200 mg HS MARY Administration ASSESSMENT/PLAN: 60 year-old man with a PMH of HTN, HLD, CAD s/p CABG x 4 (2006), systolic HF, paroxysmal afib, NIDDM, and CKD Stage 5. Admitted for LE pain and weakness, worsening renal function, now agrees to first-time hemodialysis. Acute on chronic systolic heart failure --04/18/16 echo: LV moderately reduced, moderate anterior wall hypokines, mid anteroseptal wall moderate hypokinesis, basal anteroseptal wall moderate hypokinesis; RV normal; severe LAE, moderate AUGUSTINA; mild MR; moderate TR; mild pHTN; cannot r/o --Lasix IV 80mg BID --HD for fluid balance --d/c diltiazem and carvedilol, start metoprolol tartrate 50mg TID --strict I&Os, daily weights Bilateral thigh pain --uncertain etiology; there is no erythema, no overt edema, musculature appears and feels contracted and quite painful --all electrolytes have been repleted --will see if improves after HD; if not, will get CT scan Paroxysmal afib/aflutter --aflutter on telemetry with intermittent rate to 120s --metoprolol TID --has not been on a/c in the past but should readdress during this visit --continue ASA, plavix Hypertension --BP well-controlled --continue metoprolol, hydralazine, isosorbide CAD s/p CABG x 4 --troponins mildly elevated but flat in setting of severe renal disease, normal CK; not consistent with ACS --continue metoprolol, Lipitor, ASA, Plavix Hyperlipidemia --continue Lipitor Anemia of chronic disease --transfused 1 unit PRBC 04/17 with good response, Hgb 6.7-->8.1 --stool occult negative Progressive CKD Stage 5 with proteinuria with uremic symptoms warranting dialysis ESRD, initiation of dialysis --permacath placed --HD today --Lasix, sodium bicarb NIDDM --Novolog sliding scale coverage F/E/N Fluids: PO intake adequate Electrolytes: replete as indicated Nutrition: renal diabetic diet DVT prophylaxis: hold chemical prophylaxis; SCDs, oob, ambulation Rehab PT eval Daily PT Dispo: continues to require inpatient care. Full Code. Visit type - Emergency Visit Emergency Visit: Yes ED Registration Date: 04/18/16 Care time: The patient presented to the Emergency Department on the above date and was hospitalized for further evaluation of their emergent condition. - New Patient This patient is new to me today: Yes Date on this admission: 04/18/16 - Critical Care Critical Care patient: Yes Total Critical Care Time (in minutes): 45 Critical Care Statement: The care of this patient involved high complexity decision making to prevent further life threatening deterioration of the patient 's condition and/or to evalute & treat vital organ system(s) failure or risk of failure.
[2016-04-18] MEDS ORDERED: PROPOFOL 20 ML ONE (12:18)
[2016-04-18] MEDS ORDERED: MIDAZOLAM HCL 2 MG/2 ML SINGLE DOSE VIAL ONE (12:18)
[2016-04-18] MEDS ORDERED: LIDOCAINE HCL 1%, 10 MG/ML (20ML VIAL) ONE ×2 (12:24→12:34)
[2016-04-18] MEDS ORDERED: HEPARIN NA (PORCINE) 5,000 UNITS/ML 1ML VIAL ONE (12:24)
[2016-04-18] MEDS ORDERED: METOPROLOL TARTRATE 5 MG/5 ML VIAL ONE (13:01)
[2016-04-18] MEDS ORDERED: ESMOLOL HCL 10 ML ONE (13:06)
[2016-04-18] MEDS ORDERED: ceFAZolin SODIUM 1 GM VIAL IVPB ONE (13:06)
[2016-04-18] MEDS ORDERED: ceFAZolin SODIUM 1 GM VIAL ONE (13:07)
[2016-04-18] MEDS ORDERED: HEPARIN NA (PORCINE) 5,000 UNITS/ML 1ML VIAL SQ ONE (13:08)
[2016-04-18] MEDS ORDERED: LIDOCAINE HCL 1%, 10 MG/ML (20ML VIAL) IJ ONE (13:08)
--- NOTE | 2016-04-18 13:46 | OP ---
Operative Note - Note: Operative Date: 04/18/16 Pre-Operative Diagnosis: ARF Operation: Insertion of permacath Post-Operative Diagnosis: Same as Pre-op Surgeon: Nick Otero Anesthesia: Fractional Estimated Blood Loss (mls): 10 Operative Report Dictated: Yes
[2016-04-18] MEDS ORDERED: ONDANSETRON 4 MG/2 ML VIAL IVPUSH PRN (13:47)
[2016-04-18] MEDS ORDERED: ACETAMINOPHEN 325 MG TABLET (FP) PO PRN (13:53)
[2016-04-18] MEDS ORDERED: ONDANSETRON 4 MG/2 ML VIAL IVPB PRN (13:53)
--- NOTE | 2016-04-18 16:04 | OP ---
DATE OF OPERATION: 04/18/2016 PREOPERATIVE DIAGNOSIS: Chronic renal failure. POSTOPERATIVE DIAGNOSIS: Chronic renal failure. PROCEDURE: Insertion of PermCath. SURGEON: Nick Lei DO ANESTHESIA: Fractional. BLOOD LOSS: 10 mL. The patient is a 55-year-old male who comes in chronic renal failure and now needs a temporary dialysis catheter placement. Patient was consented for the procedure, understanding all risks, benefits, and alternatives and then taken to the operating room. PROCEDURE IN DETAIL: Once in the operating room, he was laid on the operating table in supine manner, and the area of the right neck and chest were prepped and draped in a sterile surgical manner. We then injected 10 mL of lidocaine over the right internal jugular vein under ultrasound guidance. We then took our Micropuncture needle and punctured the right internal jugular vein, and our Micropuncture wire was inserted under fluoroscopy. A 5-Faroese sheath was inserted, and a 0.035 floppy guidewire was inserted. We then went ahead and injected 10 mL of lidocaine above and below the clavicle. We then took an 11 blade and made a 1-cm incision at the puncture site. Using a 15 blade, I made a 1-cm incision below the clavicle. We then tunneled the PermCath up to the puncture site. We then went ahead and placed our breakaway sheath over the guidewire into the vein under fluoroscopy, and the cannula and guidewire were removed. Catheter was placed inside the sheath. Sheath was broken away as the catheter was placed inside the vein. Neck of the catheter was nice and smooth. Tip of the catheter was located outside the right atrium. We then ronal back on each port of the catheter, and there was good flow. Heparinized saline was injected, and 2000 units of IV heparin were injected into each port. We then took 4-0 Biosyn, and 2 simple sutures were placed at the puncture site. Nylon 3-0 was used, and the catheter was attached to the skin. Biopatch, Steri-Strips, 4 x 4, and Tegaderm were placed. The patient tolerated the procedure with no complications. Patient transferred to PACU in stable condition where chest x-ray will be obtained. NICK LEI DO [employer]/[id number]
[2016-04-18] MEDS: hydrALAZINE HCL 25 MG TABLET (FP) PO SCH ×2 (17:50→22:44)
[2016-04-18] MEDS: CARVEDILOL 25 MG TABLET (FP) PO SCH (17:52)
[2016-04-18] MEDS: ISOSORBIDE DINITRATE 10 MG TABLET (FP) PO SCH ×2 (17:54→22:45)
[2016-04-18] MEDS: FUROSEMIDE 40 MG/4 ML INJECTABLE VIAL IVPUSH SCH (17:57)
[2016-04-18] MEDS ORDERED: DESMOPRESSIN ACETATE 20 MCG in SODIUM CHLORIDE 50 ML IVPB ONE (18:00)
[2016-04-18] MEDS ORDERED: EPOETIN ALFA 20,000 UNIT/1 ML VIAL IVPUSH ONE (18:00)
[2016-04-18] MEDS: METOPROLOL TARTRATE 50 MG TABLET (FP) PO SCH ×2 (19:01→22:45)
[2016-04-18] MEDS: SEVELAMER CARBONATE 800 MG TAB (FP) PO SCH (19:38)
--- NOTE | 2016-04-18 21:47 | HOSP ---
Physical Examination Vital Signs: Vital Signs Temperature 97.3 F L 04/18/16 18:00 Pulse Rate 85 04/18/16 19:20 Respiratory Rate 18 04/18/16 19:20 Blood Pressure 163/84 04/18/16 19:20 O2 Sat by Pulse Oximetry (%) 100 04/18/16 15:00 Labs: CBC, BMP 04/18/16 08:00 04/18/16 08:00 Hospitalist Encounter Assessment: 9PM: Called by nurse that dressing on permacath saturated. Attended pt. Pt alert , oriented, no distress. Dressing removed. Noted with slight oozing to catheter insertion site with clotting present. Also noted with moderate oozing at suture site. pressure dressing applied to both sites, will monitor dressing for bleed through. 11pm: Dressing noted with bleed through, outer layers removed, layers up against catheter clotted to skin, did not remove so as to not dislodge clot. Dressing reinforced. Will cont to monitor 1245AM: bleed through again noted. dressing completely removed. active oozing from insertion site and suture sites. wound cleansed and new pressure dressing applied with RONIT wrap. Nurse to monitor site and patient. 130AM No further bleeding noted. 330AM Pt with c/o discomfort to site. No active bleeding noted. Morphine to be given for discomfort. 7am: pt slept well after receiving morphine. No further bleeding. Report given to Day COLLECTION OFFICER.
[2016-04-18] MEDS ORDERED: CARVEDILOL 25 MG TABLET (FP) PO SCH (22:00)
[2016-04-18] MEDS ORDERED: ATORVASTATIN CA 10 MG TABLET (FP) PO SCH (22:00)
[2016-04-18] MEDS ORDERED: traZODone HCL 50 MG TABLET (FP) ONE (22:34)
[2016-04-18] MEDS: traZODone HCL 100 MG TABLET (FP) PO SCH (22:44)
[2016-04-18] MEDS: SODIUM BICARBONATE 650 MG TABLET PO SCH (22:45)
[2016-04-18] MEDS: SERTRALINE HCL 50 MG TABLET (FP) PO SCH (22:45)
[2016-04-18] MEDS: ATORVASTATIN CA 10 MG TABLET (FP) PO SCH (22:45)
[2016-04-19 01:34] LABS: BASOPHIL 0.5 % (0-2.0); EOSINOPHIL 2.6 % (0-4.5); MCH 29.4 pg (25.7-33.7); MCHC 33.3 g/dl (32.0-35.9); MEAN CELL VOLUME 88.2 fl (80-96); MEAN PLT VOLUME 7.8 fl (7.5-11.1); PLATELET COUNT 284 K/MM3 (134-434); RDW 14.1 % (11.9-15.9); WHITE BLOOD COUNT 10.8 K/mm3 (4.0-10.0)
[2016-04-19 01:54] LABS: INR 1.44 (0.82-1.09)
[2016-04-19 01:57] LABS: ACTIVATED PTT 37.1 SECONDS (26.9-34.4)
[2016-04-19] MEDS ORDERED: traMADol HCL 50 MG TABLET PO PRN (03:22)
[2016-04-19] MEDS ORDERED: morphine CARPU-JECT 2 MG/1 ML DISP.SYRIN IVPUSH ONE (03:24)
[2016-04-19] MEDS: SEVELAMER CARBONATE 800 MG TAB (FP) PO SCH ×3 (07:11→18:18)
[2016-04-19] MEDS: METOPROLOL TARTRATE 50 MG TABLET (FP) PO SCH ×3 (07:11→22:23)
[2016-04-19] MEDS: FUROSEMIDE 40 MG/4 ML INJECTABLE VIAL IVPUSH SCH ×2 (07:11→16:17)
[2016-04-19] MEDS: INSULIN SLIDING SCALE (NOVOLOG) 1 VIAL SQ SCH ×4 (07:47→21:22)
--- NOTE | 2016-04-19 08:31 | PN ---
Progress Note, Physician Chief Complaint: Pt. had some bleeding around permacath site that has since been controlled and redressed. No anesthesia complaints. - Current Medication List Current Medications: Active Medications Acetaminophen (Tylenol -) 650 mg PO Q6H PRN PRN Reason: FEVER OR PAIN Aspirin (Asa -) 81 mg PO DAILY [facility] Atorvastatin Calcium (Lipitor -) 10 mg PO HS [facility] Last Admin: 04/18/16 22:45 Dose: 10 mg Cholecalciferol (Vitamin D3 -) 1,000 unit PO DAILY [facility] Clopidogrel Bisulfate (Plavix -) 75 mg PO DAILY [facility] Fenofibric Acid (Trilipix -) 45 mg PO DAILY [facility] Furosemide (Lasix Injection -) 80 mg IVPUSH BID@0600,1400 [facility] Last Admin: 04/19/16 07:11 Dose: 80 mg Hydralazine HCl (Apresoline -) 25 mg PO BID [facility] Last Admin: 04/18/16 22:44 Dose: 25 mg Insulin Aspart (Novolog Vial Sliding Scale -) 1 vial SQ ACHS [facility] PRN Reason: Protocol Last Admin: 04/19/16 07:47 Dose: Not Given Isosorbide Dinitrate (Isordil -) 10 mg PO BID [facility] Last Admin: 04/18/16 22:45 Dose: 10 mg Metoprolol Tartrate (Lopressor -) 50 mg PO TID [facility] Last Admin: 04/19/16 07:11 Dose: 50 mg Multivitamins/Minerals/Vitamin C (Tab-A-Vit -) 1 tab PO DAILY [facility] Ondansetron HCl (Zofran Injection) 4 mg IVPB Q6H PRN PRN Reason: NAUSEA Sertraline HCl (Zoloft -) 50 mg PO HS [facility] Last Admin: 04/18/16 22:45 Dose: 50 mg Sevelamer Carbonate (Renvela -) 800 mg PO TIDCM [facility] Last Admin: 04/19/16 07:11 Dose: 800 mg Sodium Bicarbonate (Sodium Bicarbonate -) 650 mg PO BID [facility] Last Admin: 04/18/16 22:45 Dose: 650 mg Tramadol HCl (Ultram -) 50 mg PO Q8H PRN PRN Reason: PAIN Trazodone HCl (Desyrel -) 200 mg PO [facility] Last Admin: 04/18/16 22:44 Dose: 200 mg - Objective Vital Signs: Vital Signs Temperature 98.1 F 04/19/16 06:00 Pulse Rate 85 04/19/16 06:00 Respiratory Rate 20 04/19/16 06:00 Blood Pressure 138/68 04/19/16 06:00 O2 Sat by Pulse Oximetry (%) 100 04/18/16 21:00 Constitutional: Yes: Well Nourished, No Distress, Calm Neurological: Yes: WNL, Alert, Oriented Labs: CBC, BMP 04/19/16 01:15 04/18/16 08:00 INR, PTT INR 1.44 (0.82-1.09) H 04/19/16 01:15 Assessment/Plan POD#1 s/p permacath placement under MAC. Doing well. D/C from anesthesia care.
--- NOTE | 2016-04-19 09:56 | EKG ---
Test Reason : Blood Pressure : / mmHG Vent. Rate : 124 BPM Atrial Rate : 124 BPM P-R Int : 174 ms QRS Dur : 134 ms QT Int : 308 ms P-R-T Axes : 115 074 -72 degrees QTc Int : 442 ms POOR DATA QUALITY, INTERPRETATION MAY BE ADVERSELY AFFECTED ATRIAL FIBRILLATION NON-SPECIFIC INTRA-VENTRICULAR CONDUCTION BLOCK NONSPECIFIC ST AND T WAVE ABNORMALITY ABNORMAL ECG WHEN COMPARED WITH ECG OF 28-SEP-2015 15:48, QRS DURATION HAS INCREASED Given quality of current ECG, would recommend repeat ECG Confirmed by RUFINA NESS MD ([id number]) on 04/19/2016 9:56:18 AM Referred By: RACIEL Confirmed By:RUFINA NESS MD
--- NOTE | 2016-04-19 10:31 | PN ---
Progress Note (short form) - Note Progress Note: s: no cp sob palps dizzy o: Vital Signs Period Temp Pulse Resp BP Sys/Ledbetter Pulse Ox Last 24 Hr 97.3 F-98.5 F 70-116 15-20 108-163/65-94 100-100 nad elevated JVD rrr s1s2 2/6 murmur at apex. bibasilar crakles, nl eff aaox3 trace LE edema with erythema, healed wounds no jaundice diaphoresis Current Medications Generic Name Dose Route Start Last Admin Trade Name Freq PRN Reason Stop Dose Admin Acetaminophen 650 mg 04/18/16 13:53 Tylenol - PO Q6H PRN FEVER OR PAIN Aspirin 81 mg 04/19/16 10:00 Asa - PO DAILY [facility] Atorvastatin Calcium 10 mg 04/18/16 22:00 04/18/16 22:45 Lipitor - PO 10 mg HS [facility] Administration Cholecalciferol 1,000 unit 04/19/16 10:00 Vitamin D3 - PO DAILY [facility] Clopidogrel Bisulfate 75 mg 04/19/16 10:00 Plavix - PO DAILY [facility] Fenofibric Acid 45 mg 04/19/16 10:00 Trilipix - PO DAILY [facility] Furosemide 80 mg 04/18/16 14:00 04/19/16 07:11 Lasix Injection - IVPUSH 80 mg BID@0600,1400 [facility] Administration Hydralazine HCl 25 mg 04/18/16 22:00 04/18/16 22:44 Apresoline - PO 25 mg BID [facility] Administration Insulin Aspart 1 vial 04/18/16 16:30 04/19/16 07:47 Novolog Vial Sliding Scale - SQ Not Given ACHS [facility] Protocol Isosorbide Dinitrate 10 mg 04/18/16 22:00 04/18/16 22:45 Isordil - PO 10 mg BID [facility] Administration Metoprolol Tartrate 50 mg 04/18/16 16:00 04/19/16 07:11 Lopressor - PO 50 mg TID [facility] Administration Multivitamins/Minerals/Vitamin C 1 tab 04/19/16 10:00 Tab-A-Vit - PO DAILY [facility] Ondansetron HCl 4 mg 04/18/16 13:53 Zofran Injection IVPB Q6H PRN NAUSEA Sertraline HCl 50 mg 04/18/16 22:00 04/18/16 22:45 Zoloft - PO 50 mg HS [facility] Administration Sevelamer Carbonate 800 mg 04/18/16 17:30 04/19/16 07:11 Renvela - PO 800 mg TIDCM [facility] Administration Sodium Bicarbonate 650 mg 04/18/16 22:00 04/18/16 22:45 Sodium Bicarbonate - PO 650 mg BID [facility] Administration Tramadol HCl 50 mg 04/19/16 03:22 Ultram - PO Q8H PRN PAIN Trazodone HCl 200 mg 04/18/16 22:00 04/18/16 22:44 Desyrel - PO 200 mg HS [facility] Administration CBC, BMP 04/19/16 01:15 04/18/16 08:00 ecg: poor baseline. likely atrial flutter, VR 124 bpm. IVCD. no ischemic changes. tele: afib/aflutter. overall rate controlled. cxr images and report reviewed. Per report, no pulmonary pathology. But by my review, inadequate penetration especially at left base. Unable to exclude basilar effusions/congestion. echo 09/2015: tds; mod lve, mild-mod dec lvef, global HK, nl rv, mod-sev mr, sev tr, marixa, nl rvsp echo 03/2016: mild lve, mod dec lvef, moderate ant, anteroseptal HK, nl rv size , marixa, mild mr, mod tr, mild phtn a/p: 60 m hx htn, hld, dm, cabg (04/2006), ESRD, afib, syst chf, here s/p fall 2/ 2 weakness and LE pain and found to have worsened creatinine now with plan for HD initiation. syst chf: -volume up. Con't lasix 80 mg IV BID and HD per renal. -echo here similar to 09/2015, shows mod reduced lvef -con't hydralazine/isordil, bb -stopped diltiazem in light of cardiomyopathy. ESRD - renal following, now on HD htn: -continue current meds hld: -cont statin cad s/p cabg: -intermediate trop elevation with flat trend (in setting of severe renal dysfunction), nl CK --> not c/w acs, no anginal sxs. EKG without ischemic changes. -echo w/o sig change from prior -cont statin, bb, asa afib/flutter: -rate controlled to bb -has not been on AC in the past. cont asa, plavix for now, but will need to readdress AC once anemia is evaluated and hgb stable (hgb in 6's here with need for prbcs)
[2016-04-19] MEDS: ASPIRIN 81 MG CHEWABLE TABLETS PO SCH (10:43)
[2016-04-19] MEDS: ISOSORBIDE DINITRATE 10 MG TABLET (FP) PO SCH ×2 (10:43→21:13)
[2016-04-19] MEDS: hydrALAZINE HCL 25 MG TABLET (FP) PO SCH ×2 (10:43→21:11)
[2016-04-19] MEDS: CHOLECALCIFEROL (VITAMIN D3) 1,000 UNIT TABLET (FP) PO SCH (10:44)
[2016-04-19] MEDS: MULTIVITAMINS (DAILY MVI) TABLET (FP) PO SCH (10:44)
[2016-04-19] MEDS: CLOPIDOGREL BISULFATE 75 MG TABLET (FP) PO SCH (10:44)
[2016-04-19] MEDS: SODIUM BICARBONATE 650 MG TABLET PO SCH ×2 (10:44→21:11)
[2016-04-19] MEDS ORDERED: PT OWN MED DRAWER 7, Y5N ONE (10:52)
[2016-04-19] MEDS: FENOFIBRIC ACID 45 MG CAP PO SCH (10:56)
--- NOTE | 2016-04-19 11:12 | PN ---
Progress Note (short form) - Note Progress Note: Renal Follow up for CKD Stage 5 ->ESRD Pt seen and examined at the bedside s/p first dialysis yesterday no complications with HD Had ozzing from [facility] site overnight no chest pain, sob Legs remains swollen complains of itchiness on legs and back Vital Signs Temperature 98.1 F 04/19/16 06:00 Pulse Rate 85 04/19/16 06:00 Respiratory Rate 20 04/19/16 06:00 Blood Pressure 138/68 04/19/16 06:00 O2 Sat by Pulse Oximetry (%) 100 04/18/16 21:00 Intake & Output 04/16/16 04/17/16 04/18/16 04/19/16 23:59 23:59 23:59 23:59 Intake Total 860 0 Output Total 400 2935 1100 Balance -400 -5 -1100 Weight 229 lb 228 lb 2 oz 222 lb 6 oz Gen: awake and alert HEENT: NC/AT, MMM, No JVD CVS: RRR, No M/R Lungs: CTA, no rales or wheeze Abd: soft NT/ND Ext: 2+ edema extending up to upper thigh. Muscle wasting Neuro: AAOX3, no focal defects. + mild asterixis. CBC, BMP 04/19/16 01:15 04/18/16 08:00 Laboratory Tests 04/18/16 08:00 Calcium 8.3 L Phosphorus 9.6 H* D Magnesium 1.9 Current Medications Acetaminophen (Tylenol -) 650 mg PO Q6H PRN PRN Reason: FEVER OR PAIN Aspirin (Asa -) 81 mg PO DAILY [facility] Last Admin: 04/19/16 10:43 Dose: 81 mg Atorvastatin Calcium (Lipitor -) 10 mg PO HS [facility] Last Admin: 04/18/16 22:45 Dose: 10 mg Cholecalciferol (Vitamin D3 -) 1,000 unit PO DAILY [facility] Last Admin: 04/19/16 10:44 Dose: 1,000 unit Clopidogrel Bisulfate (Plavix -) 75 mg PO DAILY [facility] Last Admin: 04/19/16 10:44 Dose: 75 mg Diphenhydramine HCl (Benadryl -) 25 mg PO Q6H PRN PRN Reason: FOR ITCHING Fenofibric Acid (Trilipix -) 45 mg PO DAILY [facility] Last Admin: 04/19/16 10:56 Dose: 45 mg Furosemide (Lasix Injection -) 80 mg IVPUSH BID@0600,1400 [facility] Last Admin: 04/19/16 07:11 Dose: 80 mg Hydralazine HCl (Apresoline -) 25 mg PO BID [facility] Last Admin: 04/19/16 10:43 Dose: 25 mg Insulin Aspart (Novolog Vial Sliding Scale -) 1 vial SQ ACHS [facility] PRN Reason: Protocol Last Admin: 04/19/16 07:47 Dose: Not Given Isosorbide Dinitrate (Isordil -) 10 mg PO BID [facility] Last Admin: 04/19/16 10:43 Dose: 10 mg Metoprolol Tartrate (Lopressor -) 50 mg PO TID [facility] Last Admin: 04/19/16 07:11 Dose: 50 mg Multivitamins/Minerals/Vitamin C (Tab-A-Vit -) 1 tab PO DAILY [facility] Last Admin: 04/19/16 10:44 Dose: 1 tab Ondansetron HCl (Zofran Injection) 4 mg IVPB Q6H PRN PRN Reason: NAUSEA Sertraline HCl (Zoloft -) 50 mg PO [facility] Last Admin: 04/18/16 22:45 Dose: 50 mg Sevelamer Carbonate (Renvela -) 800 mg PO TIDCM [facility] Last Admin: 04/19/16 07:11 Dose: 800 mg Sodium Bicarbonate (Sodium Bicarbonate -) 650 mg PO BID [facility] Last Admin: 04/19/16 10:44 Dose: 650 mg Tramadol HCl (Ultram -) 50 mg PO Q8H PRN PRN Reason: PAIN Trazodone HCl (Desyrel -) 200 mg PO [facility] Last Admin: 04/18/16 22:44 Dose: 200 mg A/P 60 year old gentleman with PMhx of CKD Stage 5 with nephrotic range proteinuria , CAD s/p CABG, DM Type 2, Depression, CHF who presented to [place] ED s/p fall with LE pain and swelling and found to have BUN/Cr of 141/10 (baseline Cr ~ 6). #Progressive CKD Stage 5 with proteinuria with uremic symptoms warranting dialysis s/p first dialysis yesterday tolerated it well 2nd HD today 2.5 hours with goal UF of 1.5-2L Outpatient HD unit placement pending Continue Lasix as per Cardiology #LE edema/CHF Cardiology following continue diuretics UF with HD as tolerated #Puritis ? reaction to medications vs. HD vs. hyperphosphatemia related Will give PO benadryl PRN Increase phos binder if persists despite improved phos will have to evaluate individual meds vs. Hd filter (less likely filter reaction as those would be more pronounced during treatment) Won Weiss DO
[2016-04-19 16:36] LABS: BASOPHIL 0.5 % (0-2.0); EOSINOPHIL 4.4 % (0-4.5); MCH 29.5 pg (25.7-33.7); MCHC 33.5 g/dl (32.0-35.9); MEAN CELL VOLUME 88.2 fl (80-96); MEAN PLT VOLUME 8.1 fl (7.5-11.1); NEUTROPHILS 81.3 % (42.8-82.8); PLATELET COUNT 254 K/MM3 (134-434); RDW 14.2 % (11.9-15.9); WHITE BLOOD COUNT 8.8 K/mm3 (4.0-10.0)
--- NOTE | 2016-04-19 16:56 | PN ---
Progress Note (short form) - Note Progress Note: VAscular Surgery VEin mapping done Has good cephalic vein in left arm. Pt might want PD instead. Will be on standby for fistula placement. Nick dennis DO
--- NOTE | 2016-04-19 16:58 | PN ---
Physical Exam: SUBJECTIVE: Patient seen and examined at bedside receiving HD. Tolerating well. Pain in thighs is slightly better. OBJECTIVE: Vital Signs Period Temp Pulse Resp BP Sys/Ledbetter Pulse Ox Last 24 Hr 97.3 F-98.5 F 81-851 18-20 107-163/52-94 100-100 GENERAL: The patient is awake, alert, and fully oriented, in no acute distress. HEAD: Normal with no signs of trauma. EYES: PERRL, extraocular movements intact, sclera anicteric, conjunctiva clear. No ptosis. LUNGS: Breath sounds equal, clear to auscultation bilaterally, no wheezes, no crackles, no accessory muscle use. HEART: Regular rate and rhythm, S1, S2 without murmur, rub or gallop. ABDOMEN: Distended, tympanic belly; RUQ hernia non-incarcerated; normoactive bowel sounds LOWER EXTREMITIES: trace bilateral pedal edema; right upper thigh tenderness is markedly improved, left upper thigh pain very tender, areas of palpale hardened muscle NEUROLOGICAL: Cranial nerves II through XII grossly intact. Normal speech, gait not observed. Laboratory Results - last 24 hr 04/18/16 04/19/16 04/19/16 22:10 01:15 01:15 WBC 10.8 H RBC 3.13 L Hgb 9.2 L D Hct 27.6 L MCV 88.2 MCHC 33.3 RDW 14.1 Plt Count 284 MPV 7.8 Neutrophils % 85.0 H Lymphocytes % 4.0 L D Monocytes % 7.9 Eosinophils % 2.6 Basophils % 0.5 INR 1.44 H PTT (Actin FS) 37.1 H POC Glucometer 69 04/19/16 04/19/16 04/19/16 07:03 12:13 15:50 WBC 8.8 RBC 2.89 L Hgb 8.5 L Hct 25.5 L MCV 88.2 MCHC 33.5 RDW 14.2 Plt Count 254 MPV 8.1 Neutrophils % 81.3 Lymphocytes % 6.2 L D Monocytes % 7.6 Eosinophils % 4.4 Basophils % 0.5 INR PTT (Actin FS) POC Glucometer 103 196 Active Medications Generic Name Dose Route Start Last Admin Trade Name Freq PRN Reason Stop Dose Admin Acetaminophen 650 mg 04/18/16 13:53 Tylenol - PO Q6H PRN FEVER OR PAIN Aspirin 81 mg 04/19/16 10:00 04/19/16 10:43 Asa - PO 81 mg DAILY [facility] Administration Atorvastatin Calcium 10 mg 04/18/16 22:00 04/18/16 22:45 Lipitor - PO 10 mg HS [facility] Administration Cholecalciferol 1,000 unit 04/19/16 10:00 04/19/16 10:44 Vitamin D3 - PO 1,000 unit DAILY [facility] Administration Clopidogrel Bisulfate 75 mg 04/19/16 10:00 04/19/16 10:44 Plavix - PO 75 mg DAILY [facility] Administration Diphenhydramine HCl 25 mg 04/19/16 11:06 Benadryl - PO Q6H PRN FOR ITCHING Fenofibric Acid 45 mg 04/19/16 10:00 04/19/16 10:56 Trilipix - PO 45 mg DAILY [facility] Administration Furosemide 80 mg 04/18/16 14:00 04/19/16 16:17 Lasix Injection - IVPUSH Not Given BID@0600,1400 [facility] Hydralazine HCl 25 mg 04/18/16 22:00 04/19/16 10:43 Apresoline - PO 25 mg BID [facility] Administration Insulin Aspart 1 vial 04/18/16 16:30 04/19/16 07:47 Novolog Vial Sliding Scale - SQ Not Given [facility] Protocol Isosorbide Dinitrate 10 mg 04/18/16 22:00 04/19/16 10:43 Isordil - PO 10 mg BID [facility] Administration Metoprolol Tartrate 50 mg 04/18/16 16:00 04/19/16 07:11 Lopressor - PO 50 mg TID [facility] Administration Multivitamins/Minerals/Vitamin C 1 tab 04/19/16 10:00 04/19/16 10:44 Tab-A-Vit - PO 1 tab DAILY [facility] Administration Ondansetron HCl 4 mg 04/18/16 13:53 Zofran Injection IVPB Q6H PRN NAUSEA Sertraline HCl 50 mg 04/18/16 22:00 04/18/16 22:45 Zoloft - PO 50 mg HS [facility] Administration Sevelamer Carbonate 1,600 mg 04/19/16 11:09 04/19/16 11:27 Renvela - PO 1,600 mg TIDCM [facility] Administration Sodium Bicarbonate 650 mg 04/18/16 22:00 04/19/16 10:44 Sodium Bicarbonate - PO 650 mg BID [facility] Administration Tramadol HCl 50 mg 04/19/16 03:22 Ultram - PO Q8H PRN PAIN Trazodone HCl 200 mg 04/18/16 22:00 04/18/16 22:44 Desyrel - PO 200 mg HS [facility] Administration ASSESSMENT/PLAN: 60 year-old man with a PMH of HTN, HLD, CAD s/p CABG x 4 (2006), systolic HF, paroxysmal afib, NIDDM, and CKD Stage 5. Admitted for LE pain and weakness, worsening renal function, now s/p initiation of HD. Progressive CKD Stage 5 with proteinuria with uremic symptoms warranting dialysis ESRD, initiation of dialysis --permacath placed; problems with oozing overnight, now resolved --HD yesterday and again today --continue Lasix, sodium bicarb --outpatient HD unit placement pending --vein mapping done but patient wants PD Acute on chronic systolic heart failure --04/18/16 echo: LV moderately reduced, moderate anterior wall hypokinesis, mid anteroseptal wall moderate hypokinesis, basal anteroseptal wall moderate hypokinesis; RV normal; severe LAE, moderate A[place]; mild MR; moderate TR; mild pHTN; cannot r/o --Lasix IV 80mg BID --HD for fluid balance --continue metoprolol --strict I&Os, daily weights Hyperphosphatemia Pruritis --thigh muscle pain/contractions possibly secondary to hyperphosphatemia ( although corrected calcium wnl) --uremic symptoms of itching --sevelamer increased today --d/c statin as possible contributing factor --monitor electrolytes very closely Paroxysmal afib/aflutter --aflutter on telemetry with intermittent rate to 120s --metoprolol TID --has not been on a/c in the past but should readdress during this visit --continue ASA, plavix Hypertension --BP well-controlled --continue metoprolol, hydralazine, isosorbide CAD s/p CABG x 4 --troponins mildly elevated but flat in setting of severe renal disease, normal CK; not consistent with ACS --continue metoprolol, Lipitor, ASA, Plavix Hyperlipidemia --continue Lipitor Anemia of chronic disease --transfused 1 unit PRBC 04/17 --h/h stable --stool occult negative NIDDM --Novolog sliding scale coverage F/E/N Fluids: PO intake adequate Electrolytes: replete as indicated Nutrition: renal diabetic diet DVT prophylaxis: hold chemical prophylaxis; SCDs, oob, ambulation Rehab PT eval Daily PT Dispo: continues to require inpatient care. Full Code. Visit type - Emergency Visit Emergency Visit: Yes ED Registration Date: 04/18/16 Care time: The patient presented to the Emergency Department on the above date and was hospitalized for further evaluation of their emergent condition. - New Patient This patient is new to me today: No - Critical Care Critical Care patient: No
[2016-04-19 17:23] LABS: ALBUMIN 3.4 g/dl (3.4-5.0); BILIRUBIN,TOTAL 0.4 mg/dL (0.2-1.0); CALCIUM 8.4 mg/dL (8.5-10.1); CREATININE 6.6 mg/dL (0.7-1.3); INR 1.43 (0.82-1.09); MAGNESIUM 1.9 mg/dL (1.8-2.4); PHOSPHOROUS 6.1 mg/dL (2.5-4.9); PROTHROMBIN TIME (PATIENT) 15.9 SEC (9.98-11.88); TOT PROT 6.8 g/dl (6.4-8.2)
[2016-04-19] MEDS ORDERED: INSULIN (NOVOLOG) ASPART 100 UNITS/ML 10ML VIAL ONE (18:18)
[2016-04-19] MEDS: diphenhydrAMINE HCL 25 MG CAPSULE (FP) PO PRN (18:20)
--- NOTE | 2016-04-19 19:11 | RAPID ---
Physical Examination Vital Signs: Vital Signs Temperature 98.4 F 04/19/16 15:35 Pulse Rate 88 04/19/16 18:22 Respiratory Rate 18 04/19/16 18:22 Blood Pressure 138/81 04/19/16 18:22 O2 Sat by Pulse Oximetry (%) 100 04/19/16 09:00 Responded to rapid response. Found patient seated at edge of bed, awake, alert, oriented x 3, eating his dinner. RN Flor reported patient's HR was in the 130s. When she arrived to the patient's bedside he was asymptomatic. On my inquiry, patient said he felt fine, denied chest pain, palpitations, SOB, dizziness, lightheadedness, or any other cardiac symptom. Vital signs: BP 155/87 , p 92, SaO2 97%. ECG done showed aflutter @ 97. Ordered cmp, mag, phos, troponin stat labs. Labs: CBC, BMP 04/19/16 15:50 04/19/16 15:50
[2016-04-19] MEDS ORDERED: traZODone HCL 50 MG TABLET (FP) ONE (21:08)
[2016-04-19] MEDS: ATORVASTATIN CA 10 MG TABLET (FP) PO SCH (21:10)
[2016-04-19] MEDS: SERTRALINE HCL 50 MG TABLET (FP) PO SCH (21:11)
[2016-04-19] MEDS: traZODone HCL 100 MG TABLET (FP) PO SCH (21:13)
[2016-04-19 22:03] LABS: ALBUMIN 3.6 g/dl (3.4-5.0); BILIRUBIN,TOTAL 0.4 mg/dL (0.2-1.0); CALCIUM 8.4 mg/dL (8.5-10.1); MAGNESIUM 1.7 mg/dL (1.8-2.4); PHOSPHOROUS 3.6 mg/dL (2.5-4.9); TOT PROT 7.4 g/dl (6.4-8.2)
[2016-04-19] MEDS: MAGNESIUM SULF 50% (8.12 MEQ/2 ML-1 GM VIAL) IVPB ONE ×2 (23:10→23:50)
[2016-04-19] MEDS ORDERED: METOPROLOL TARTRATE 25 MG TABLET (FP) PO ONE (23:30)
[2016-04-19] MEDS ORDERED: MAGNESIUM SULF 50% (8.12 MEQ/2 ML-1 GM VIAL) IVPB ONE (23:55)
[2016-04-20 00:08] LABS: HEP B SURFACE AB Non Reactive (.)
[2016-04-20] MEDS ORDERED: morphine CARPU-JECT 2 MG/1 ML DISP.SYRIN IVPUSH ONE (01:00)
--- NOTE | 2016-04-20 01:02 | HOSP ---
Subjective - Review of Symptoms Subjective: Pt seen for f/u. earlier today had a rapid response for elevated HR. Labs ordered. Magnesium 1.7. Pt currently with a HR in 130s-140s. Denies chest pain. + SOB when laying flat which he states is improved with oxygen use. Pulmonary: Yes: Dyspnea Cardiovascular: No: Chest Pain, Palpitations, Light Headedness Gastrointestinal: No: Nausea, Vomiting, Abdominal Pain Physical Examination Vital Signs: Vital Signs Temperature 98.5 F 04/19/16 16:35 Pulse Rate 88 04/19/16 18:22 Respiratory Rate 18 04/19/16 18:22 Blood Pressure 138/81 04/19/16 18:22 O2 Sat by Pulse Oximetry (%) 100 04/19/16 09:00 Constitutional: Yes: Well Nourished Cardiovascular: Yes: Tachycardia, S1, S2 Respiratory: Yes: CTA Bilaterally Gastrointestinal: Yes: WNL Integumentary: Yes: Other (right chest permacath insertion site intact, no bleeding. Dressing clean and dry.) Labs: CBC, BMP 04/19/16 15:50 04/19/16 19:45 Hospitalist Encounter Assessment: Tachycardia, likely 2:1 flutter - ECG at 648pm with atrial flutter rate of 97, now 140 on monitor - will give metoprolol 25mg x 1 dose now (on 50 TID, last dose given around 1030) hypomagnesia - 1gm Mag IV now Hypokalemia - potassium 3.2, will hold off on supplement due to renal disease. Repeat in AM.
[2016-04-20] MEDS ORDERED: POTASSIUM CHLORIDE TABS 20 MEQ TABLET.ER (FP) PO ONE ×2 (02:00→06:15)
[2016-04-20] MEDS: diphenhydrAMINE HCL 25 MG CAPSULE (FP) PO PRN ×2 (04:26→18:56)
[2016-04-20] MEDS ORDERED: PT OWN MED DRAWER 7, Y5N ONE (06:11)
[2016-04-20] MEDS: FUROSEMIDE 40 MG/4 ML INJECTABLE VIAL IVPUSH SCH ×2 (06:24→15:00)
[2016-04-20] MEDS: METOPROLOL TARTRATE 50 MG TABLET (FP) PO SCH (06:24)
[2016-04-20] MEDS: INSULIN SLIDING SCALE (NOVOLOG) 1 VIAL SQ SCH ×4 (06:29→21:30)
[2016-04-20 08:04] LABS: BASOPHIL 0.5 % (0-2.0); EOSINOPHIL 4.8 % (0-4.5); MCH 29.1 pg (25.7-33.7); MCHC 32.6 g/dl (32.0-35.9); MEAN CELL VOLUME 89.2 fl (80-96); NEUTROPHILS 75.7 % (42.8-82.8); PLATELET COUNT 241 K/MM3 (134-434); RDW 14.4 % (11.9-15.9); WHITE BLOOD COUNT 10.3 K/mm3 (4.0-10.0)
[2016-04-20 08:19] LABS: ALBUMIN 3.2 g/dl (3.4-5.0); BILIRUBIN,TOTAL 0.4 mg/dL (0.2-1.0); CALCIUM 8.4 mg/dL (8.5-10.1); CREATININE 5.5 mg/dL (0.7-1.3); MAGNESIUM 2.1 mg/dL (1.8-2.4); PHOSPHOROUS 4.9 mg/dL (2.5-4.9); TOT PROT 6.8 g/dl (6.4-8.2)
[2016-04-20] MEDS: SEVELAMER CARBONATE 800 MG TAB (FP) PO SCH ×3 (09:36→18:02)
[2016-04-20] MEDS: ASPIRIN 81 MG CHEWABLE TABLETS PO SCH (09:42)
[2016-04-20] MEDS: hydrALAZINE HCL 25 MG TABLET (FP) PO SCH ×2 (09:42→21:39)
[2016-04-20] MEDS: ISOSORBIDE DINITRATE 10 MG TABLET (FP) PO SCH ×2 (09:42→21:40)
[2016-04-20] MEDS: SODIUM BICARBONATE 650 MG TABLET PO SCH ×2 (09:42→21:39)
[2016-04-20] MEDS: CLOPIDOGREL BISULFATE 75 MG TABLET (FP) PO SCH (09:43)
[2016-04-20] MEDS: CHOLECALCIFEROL (VITAMIN D3) 1,000 UNIT TABLET (FP) PO SCH (09:43)
[2016-04-20] MEDS: MULTIVITAMINS (DAILY MVI) TABLET (FP) PO SCH (09:43)
[2016-04-20] MEDS ORDERED: METOPROLOL TARTRATE 5 MG/5 ML VIAL IVPUSH PRN (10:02)
--- NOTE | 2016-04-20 10:07 | PN ---
Progress Note (short form) - Note Progress Note: s: no cp sob palps dizzy o: Vital Signs Period Temp Pulse Resp BP Sys/Ledbetter Pulse Ox Last 24 Hr 97.2 F-98.5 F 88-851 18-18 107-138/52-81 98 nad elevated JVD rrr s1s2 2/6 murmur at apex. bibasilar crakles, nl eff aaox3 trace LE edema with erythema, healed wounds no jaundice diaphoresis Current Medications Generic Name Dose Route Start Last Admin Trade Name Freq PRN Reason Stop Dose Admin Acetaminophen 650 mg 04/18/16 13:53 Tylenol - PO Q6H PRN FEVER OR PAIN Aspirin 81 mg 04/19/16 10:00 04/20/16 09:42 Asa - PO 81 mg DAILY MARY Administration Atorvastatin Calcium 10 mg 04/18/16 22:00 04/19/16 21:10 Lipitor - PO 10 mg HS MARY Administration Cholecalciferol 1,000 unit 04/19/16 10:00 04/20/16 09:43 Vitamin D3 - PO 1,000 unit DAILY MARY Administration Clopidogrel Bisulfate 75 mg 04/19/16 10:00 04/20/16 09:43 Plavix - PO 75 mg DAILY MARY Administration Diphenhydramine HCl 25 mg 04/19/16 11:06 04/20/16 04:26 Benadryl - PO 25 mg Q6H PRN Administration FOR ITCHING Fenofibric Acid 45 mg 04/19/16 10:00 04/19/16 10:56 Trilipix - PO 45 mg DAILY MARY Administration Furosemide 80 mg 04/18/16 14:00 04/20/16 06:24 Lasix Injection - IVPUSH 80 mg BID@0600,1400 MARY Administration Hydralazine HCl 25 mg 04/18/16 22:00 04/20/16 09:42 Apresoline - PO 25 mg BID MARY Administration Insulin Aspart 1 vial 04/18/16 16:30 04/20/16 06:29 Novolog Vial Sliding Scale - SQ Not Given ACHS [facility] Protocol Isosorbide Dinitrate 10 mg 04/18/16 22:00 04/20/16 09:42 Isordil - PO 10 mg BID MARY Administration Metoprolol Succinate 50 mg 04/20/16 22:00 Toprol Xl - PO BID MARY Metoprolol Tartrate 5 mg 04/20/16 10:02 Lopressor Injection - IVPUSH Q4H PRN TACHYCARDIA Multivitamins/Minerals/Vitamin C 1 tab 04/19/16 10:00 04/20/16 09:43 Tab-A-Vit - PO 1 tab DAILY MARY Administration Ondansetron HCl 4 mg 04/18/16 13:53 Zofran Injection IVPB Q6H PRN NAUSEA Sertraline HCl 50 mg 04/18/16 22:00 04/19/16 21:11 Zoloft - PO 50 mg HS MARY Administration Sevelamer Carbonate 1,600 mg 04/19/16 11:09 04/20/16 09:36 Renvela - PO Not Given TIDCM MARY Sodium Bicarbonate 650 mg 04/18/16 22:00 04/20/16 09:42 Sodium Bicarbonate - PO 650 mg BID MARY Administration Tramadol HCl 50 mg 04/19/16 03:22 Ultram - PO Q8H PRN PAIN Trazodone HCl 200 mg 04/18/16 22:00 04/19/16 21:13 Desyrel - PO 200 mg HS MARY Administration CBC, BMP 04/20/16 07:00 04/20/16 07:00 ecg: poor baseline. likely atrial flutter, VR 124 bpm. IVCD. no ischemic changes. tele: afib/aflutter. occ rvr 130s echo 09/2015: tds; mod lve, mild-mod dec lvef, global HK, nl rv, mod-sev mr, sev tr, marixa, nl rvsp echo 03/2016: mild lve, mod dec lvef, moderate ant, anteroseptal HK, nl rv size , marixa, mild mr, mod tr, mild phtn a/p: 60 m hx htn, hld, dm, cabg (04/2006), ESRD, afib, syst chf, here s/p fall 2/ 2 weakness and LE pain and found to have worsened creatinine now with plan for HD initiation. syst chf: -still with orthopnea. Con't lasix 80 mg IV BID and HD per renal. -echo here similar to 09/2015, shows mod reduced lvef -con't hydralazine/isordil, bb -stopped diltiazem here in light of cardiomyopathy. ESRD - renal following, now on HD htn: -continue current meds hld: -cont statin cad s/p cabg: -intermediate trop elevation with flat trend (in setting of severe renal dysfunction), nl CK --> not c/w acs, no anginal sxs. EKG without ischemic changes. -echo w/o sig change from prior -cont statin, bb, asa afib/flutter: -still with occasional rvr at times so will change lopressor to toprol xl. Monitor on tele, if HR still fast will decrease imdur/hydralazine to make bp room for more toprol -has not been on AC in the past. cont asa, plavix for now, but will need to readdress AC once anemia is evaluated and hgb stable (hgb in 6's here with need for prbcs)
--- NOTE | 2016-04-20 11:50 | PN ---
Progress Note (short form) - Note Progress Note: Renal Follow up for CKD Stage 5 ->ESRD Pt seen and examined at the bedside has elevated HR last night, no sympotoms no chest pain, abd pain, N/V/D + Orthopnea, GUTIERREZ s/p 2nd HD yesterday Vital Signs Temperature 97.5 F L 04/20/16 06:00 Pulse Rate 78 04/20/16 10:00 Respiratory Rate 20 04/20/16 10:00 Blood Pressure 128/57 04/20/16 10:00 O2 Sat by Pulse Oximetry (%) 97 04/20/16 10:00 Intake & Output 04/17/16 04/18/16 04/19/16 04/20/16 23:59 23:59 23:59 23:59 Intake Total 860 0 Output Total 400 2935 1300 400 Balance -400 -2075 -1300 -400 Weight 229 lb 228 lb 2 oz 222 lb 6 oz 220 lb 2 oz Gen: awake and alert HEENT: NC/AT, MMM, No JVD CVS: RRR, No M/R Lungs: CTA, no rales or wheeze Abd: soft NT/ND Ext: 2+ edema extending up to upper thigh. Muscle wasting Neuro: AAOX3, no focal defects. + mild asterixis. CBC, BMP 04/20/16 07:00 04/20/16 07:00 Current Medications Acetaminophen (Tylenol -) 650 mg PO Q6H PRN PRN Reason: FEVER OR PAIN Aspirin (Asa -) 81 mg PO DAILY COUNTS INCLUDE 234 BEDS AT THE [facility] Last Admin: 04/20/16 09:42 Dose: 81 mg Atorvastatin Calcium (Lipitor -) 10 mg PO HS COUNTS INCLUDE 234 BEDS AT THE [facility] Last Admin: 04/19/16 21:10 Dose: 10 mg Cholecalciferol (Vitamin D3 -) 1,000 unit PO DAILY COUNTS INCLUDE 234 BEDS AT THE [facility] Last Admin: 04/20/16 09:43 Dose: 1,000 unit Clopidogrel Bisulfate (Plavix -) 75 mg PO DAILY COUNTS INCLUDE 234 BEDS AT THE [facility] Last Admin: 04/20/16 09:43 Dose: 75 mg Diphenhydramine HCl (Benadryl -) 25 mg PO Q6H PRN PRN Reason: FOR ITCHING Last Admin: 04/20/16 04:26 Dose: 25 mg Fenofibric Acid (Trilipix -) 45 mg PO DAILY COUNTS INCLUDE 234 BEDS AT THE [facility] Last Admin: 04/19/16 10:56 Dose: 45 mg Furosemide (Lasix Injection -) 80 mg IVPUSH BID@0600,1400 COUNTS INCLUDE 234 BEDS AT THE [facility] Last Admin: 04/20/16 06:24 Dose: 80 mg Hydralazine HCl (Apresoline -) 25 mg PO BID COUNTS INCLUDE 234 BEDS AT THE [facility] Last Admin: 04/20/16 09:42 Dose: 25 mg Insulin Aspart (Novolog Vial Sliding Scale -) 1 vial SQ ACHS COUNTS INCLUDE 234 BEDS AT THE [facility] PRN Reason: Protocol Last Admin: 04/20/16 06:29 Dose: Not Given Isosorbide Dinitrate (Isordil -) 10 mg PO BID COUNTS INCLUDE 234 BEDS AT THE [facility] Last Admin: 04/20/16 09:42 Dose: 10 mg Metoprolol Succinate (Toprol Xl -) 50 mg PO BID COUNTS INCLUDE 234 BEDS AT THE [facility] Metoprolol Tartrate (Lopressor Injection -) 5 mg IVPUSH Q4H PRN PRN Reason: TACHYCARDIA Multivitamins/Minerals/Vitamin C (Tab-A-Vit -) 1 tab PO DAILY COUNTS INCLUDE 234 BEDS AT THE [facility] Last Admin: 04/20/16 09:43 Dose: 1 tab Ondansetron HCl (Zofran Injection) 4 mg IVPB Q6H PRN PRN Reason: NAUSEA Sertraline HCl (Zoloft -) 50 mg PO [facility] Last Admin: 04/19/16 21:11 Dose: 50 mg Sevelamer Carbonate (Renvela -) 1,600 mg PO TIDCM COUNTS INCLUDE 234 BEDS AT THE [facility] Last Admin: 04/20/16 09:36 Dose: Not Given Sodium Bicarbonate (Sodium Bicarbonate -) 650 mg PO BID COUNTS INCLUDE 234 BEDS AT THE [facility] Last Admin: 04/20/16 09:42 Dose: 650 mg Tramadol HCl (Ultram -) 50 mg PO Q8H PRN PRN Reason: PAIN Trazodone HCl (Desyrel -) 200 mg PO [facility] Last Admin: 04/19/16 21:13 Dose: 200 mg A/P 60 year old gentleman with PMhx of CKD Stage 5 with nephrotic range proteinuria , CAD s/p CABG, DM Type 2, Depression, CHF who presented to [facility] ED s/p fall with LE pain and swelling and found to have BUN/Cr of 141/10 (baseline Cr ~ 6). #Progressive CKD Stage 5 with proteinuria with uremic symptoms warranting dialysis s/p 2nd HD yesterday no indication for dialysis today but will plan for isolated UF for volume removal next HD tomorrow outpatient HD unit placement #LE edema/CHF Cardiology following Will plan for isolated UF today with goal of 2.5L removal Continue IV lasix #Tender lesions in LE concern for calciphyslaxis given uremia/high Ca x Phos product Check CT scan of LE w/o contrast to r/o calcium deposition in soft tissues Continue phos binder with goal Phos < 5.5, expect phos to improve with further dialysis stop Vit D for now #Puritis related to hyperphosphatemia Will give PO benadryl PRN Increase phos binder Won Weiss DO
--- NOTE | 2016-04-20 14:06 | PN ---
Physical Exam: SUBJECTIVE: Patient seen and examined oob to chair. Was awakened this morning at 4am with severe thigh pain. Got relief with morphine. Today thigh pain is worse again, the improvement seen yesterday is gone. OBJECTIVE: Vital Signs Period Temp Pulse Resp BP Sys/Ledbetter Pulse Ox Last 24 Hr 97.2 F-98.5 F 78-851 18-20 107-138/52-81 97-98 GENERAL: The patient is awake, alert, and fully oriented, in no acute distress. HEAD: Normal with no signs of trauma. EYES: PERRL, extraocular movements intact, sclera anicteric, conjunctiva clear. No ptosis. LUNGS: Distant breath sounds. No wheezes, no crackles, no accessory muscle use. HEART: Regular rate and rhythm, S1, S2 without murmur, rub or gallop. ABDOMEN: Soft, nontender, nondistended, normoactive bowel sounds, no guarding, no rebound, no hepatosplenomegaly, no masses. EXTREMITIES: 2+ pulses, warm, well-perfused, no edema. NEUROLOGICAL: Cranial nerves II through XII grossly intact. Normal speech, gait not observed. Laboratory Results - last 24 hr 04/19/16 04/19/16 04/19/16 15:50 15:50 15:50 WBC 8.8 RBC 2.89 L Hgb 8.5 L Hct 25.5 L MCV 88.2 MCHC 33.5 RDW 14.2 Plt Count 254 MPV 8.1 Neutrophils % 81.3 Lymphocytes % 6.2 L D Monocytes % 7.6 Eosinophils % 4.4 Basophils % 0.5 INR 1.43 H Sodium 143 Potassium 3.2 L D Chloride 101 Carbon Dioxide 31 D Anion Gap 11 BUN 81 H D Creatinine 6.6 H D Creat Clearance w eGFR 8.58 POC Glucometer Random Glucose 135 H D Calcium 8.4 L Phosphorus 6.1 H D Magnesium 1.9 Total Bilirubin 0.4 D AST 4 L ALT 15 Alkaline Phosphatase 42 L D Troponin I Total Protein 6.8 Albumin 3.4 04/19/16 04/19/16 04/19/16 18:13 19:45 19:45 WBC RBC Hgb Hct MCV MCHC RDW Plt Count MPV Neutrophils % Lymphocytes % Monocytes % Eosinophils % Basophils % INR Sodium 143 Potassium 3.2 L Chloride 102 Carbon Dioxide 28 Anion Gap 13 BUN 56 H D Creatinine 5.0 H D Creat Clearance w eGFR 11.82 POC Glucometer 172 Random Glucose 99 D Calcium 8.4 L Phosphorus 3.6 D Magnesium 1.7 L Total Bilirubin 0.4 AST 8 L D ALT 15 Alkaline Phosphatase 51 D Troponin I 0.09 H Total Protein 7.4 Albumin 3.6 04/19/16 04/20/16 04/20/16 21:20 05:51 07:00 WBC 10.3 H RBC 3.24 L Hgb 9.5 L D Hct 29.0 L MCV 89.2 MCHC 32.6 RDW 14.4 Plt Count 241 MPV 8.0 Neutrophils % 75.7 Lymphocytes % 9.0 D Monocytes % 10.0 Eosinophils % 4.8 H Basophils % 0.5 INR Sodium Potassium Chloride Carbon Dioxide Anion Gap BUN Creatinine Creat Clearance w eGFR POC Glucometer 122 90 Random Glucose Calcium Phosphorus Magnesium Total Bilirubin AST ALT Alkaline Phosphatase Troponin I Total Protein Albumin 04/20/16 07:00 WBC RBC Hgb Hct MCV MCHC RDW Plt Count MPV Neutrophils % Lymphocytes % Monocytes % Eosinophils % Basophils % INR Sodium 142 Potassium 3.2 L Chloride 102 Carbon Dioxide 27 Anion Gap 13 BUN 61 H Creatinine 5.5 H Creat Clearance w eGFR 10.59 POC Glucometer Random Glucose 85 Calcium 8.4 L Phosphorus 4.9 D Magnesium 2.1 D Total Bilirubin 0.4 AST 8 L ALT 13 Alkaline Phosphatase 41 L Troponin I Total Protein 6.8 Albumin 3.2 L Active Medications Generic Name Dose Route Start Last Admin Trade Name Freq PRN Reason Stop Dose Admin Acetaminophen 650 mg 04/18/16 13:53 Tylenol - PO Q6H PRN FEVER OR PAIN Aspirin 81 mg 04/19/16 10:00 04/20/16 09:42 Asa - PO 81 mg DAILY MARY Administration Atorvastatin Calcium 10 mg 04/18/16 22:00 04/19/16 21:10 Lipitor - PO 10 mg HS MARY Administration Clopidogrel Bisulfate 75 mg 04/19/16 10:00 04/20/16 09:43 Plavix - PO 75 mg DAILY MARY Administration Diphenhydramine HCl 25 mg 04/19/16 11:06 04/20/16 04:26 Benadryl - PO 25 mg Q6H PRN Administration FOR ITCHING Fenofibric Acid 45 mg 04/19/16 10:00 04/19/16 10:56 Trilipix - PO 45 mg DAILY MARY Administration Furosemide 80 mg 04/18/16 14:00 04/20/16 06:24 Lasix Injection - IVPUSH 80 mg BID@0600,1400 MARY Administration Hydralazine HCl 25 mg 04/18/16 22:00 04/20/16 09:42 Apresoline - PO 25 mg BID MARY Administration Insulin Aspart 1 vial 04/18/16 16:30 04/20/16 06:29 Novolog Vial Sliding Scale - SQ Not Given ACHS [facility] Protocol Isosorbide Dinitrate 10 mg 04/18/16 22:00 04/20/16 09:42 Isordil - PO 10 mg BID MARY Administration Metoprolol Succinate 50 mg 04/20/16 22:00 Toprol Xl - PO BID [facility] Metoprolol Tartrate 5 mg 04/20/16 10:02 Lopressor Injection - IVPUSH Q4H PRN TACHYCARDIA Multivitamins/Minerals/Vitamin C 1 tab 04/19/16 10:00 04/20/16 09:43 Tab-A-Vit - PO 1 tab DAILY MARY Administration Ondansetron HCl 4 mg 04/18/16 13:53 Zofran Injection IVPB Q6H PRN NAUSEA Sertraline HCl 50 mg 04/18/16 22:00 04/19/16 21:11 Zoloft - PO 50 mg HS MARY Administration Sevelamer Carbonate 1,600 mg 04/19/16 11:09 04/20/16 09:36 Renvela - PO Not Given TIDCM [facility] Sodium Bicarbonate 650 mg 04/18/16 22:00 04/20/16 09:42 Sodium Bicarbonate - PO 650 mg BID MARY Administration Tramadol HCl 50 mg 04/19/16 03:22 Ultram - PO Q8H PRN PAIN Trazodone HCl 200 mg 04/18/16 22:00 04/19/16 21:13 Desyrel - PO 200 mg HS MARY Administration ASSESSMENT/PLAN: 60 year-old man with a PMH of HTN, HLD, CAD s/p CABG x 4 (2006), systolic HF, paroxysmal afib, NIDDM, and CKD Stage 5. Admitted for LE pain and weakness, worsening renal function, now s/p initiation of HD. Progressive CKD Stage 5 with proteinuria with uremic symptoms warranting dialysis ESRD on HD --HD 04/18, 04/19; UF today for volume removal goal 2.5L; HD tomorrow --continue Lasix, sodium bicarb --outpatient HD unit placement pending --vein mapping done but patient wants PD Acute on chronic systolic heart failure --04/18/16 echo: LV moderately reduced, moderate anterior wall hypokinesis, mid anteroseptal wall moderate hypokinesis, basal anteroseptal wall moderate hypokinesis; RV normal; severe LAE, moderate AUGUSTINA; mild MR; moderate TR; mild pHTN; cannot r/o --Lasix IV 80mg BID --HD for fluid balance --continue metoprolol --strict I&Os, daily weights; down 3.6kg since 04/18 Hyperphosphatemia Pruritis --thigh muscle pain/contractions discussed with Dr. Weiss, he is concerned for calciphylaxis given uremia/high Ca x Phos product --CT BLE done, awaiting read to r/o calcium deposition in soft tissues --continue sevelamer with goal phos <5.5 --d/c statin as possible contributing factor Paroxysmal afib/aflutter --aflutter on telemetry with intermittent rate to 120s --metoprolol TID --has not been on a/c in the past but should readdress during this visit --continue ASA, plavix Hypertension --BP well-controlled --continue metoprolol, hydralazine, isosorbide CAD s/p CABG x 4 --troponins mildly elevated but flat in setting of severe renal disease, normal CK; not consistent with ACS --continue metoprolol, Lipitor, ASA, Plavix Hyperlipidemia --continue Lipitor Anemia of chronic disease --transfused 1 unit PRBC 04/17 --h/h stable --stool occult negative NIDDM --Novolog sliding scale coverage F/E/N Fluids: PO intake adequate Electrolytes: replete as indicated Nutrition: renal diabetic diet DVT prophylaxis: hold chemical prophylaxis; SCDs, oob, ambulation Rehab PT eval Daily PT Dispo: continues to require inpatient care. Full Code. Visit type - Emergency Visit Emergency Visit: Yes ED Registration Date: 04/18/16 Care time: The patient presented to the Emergency Department on the above date and was hospitalized for further evaluation of their emergent condition. - New Patient This patient is new to me today: No - Critical Care Critical Care patient: No
--- NOTE | 2016-04-20 14:48 | EKG ---
Test Reason : Blood Pressure : / mmHG Vent. Rate : 097 BPM Atrial Rate : 267 BPM P-R Int : 000 ms QRS Dur : 124 ms QT Int : 432 ms P-R-T Axes : 018 088 227 degrees QTc Int : 548 ms ATRIAL FLUTTER WITH VARIABLE A-V BLOCK NON-SPECIFIC INTRA-VENTRICULAR CONDUCTION DELAY ABNORMAL ECG WHEN COMPARED WITH ECG OF 17-APR-2016 17:30, ATRIAL FLUTTER HAS REPLACED ATRIAL FIBRILLATION Confirmed by STEPH WHITNEY MD ([id number]) on 04/20/2016 2:48:20 PM Referred By: Confirmed By:STEPH WHITNEY MD
[2016-04-20] MEDS ORDERED: METOPROLOL TARTRATE 50 MG TABLET (FP) ONE (17:48)
[2016-04-20] MEDS: FENOFIBRIC ACID 45 MG CAP PO SCH (18:54)
[2016-04-20] MEDS: METOPROLOL SUCCINATE 50 MG TAB.SR.24H (FP) PO SCH ×2 (20:05→21:30)
[2016-04-20] MEDS ORDERED: traZODone HCL 50 MG TABLET (FP) ONE (21:32)
[2016-04-20] MEDS: traZODone HCL 100 MG TABLET (FP) PO SCH (21:40)
[2016-04-20] MEDS: ATORVASTATIN CA 10 MG TABLET (FP) PO SCH (21:40)
[2016-04-20] MEDS: SERTRALINE HCL 50 MG TABLET (FP) PO SCH (21:40)
[2016-04-20] MEDS ORDERED: AMMONIUM LACTATE 12% LOTION 225 GM BOTTLE TP PRN (23:51)
[2016-04-21] MEDS: INSULIN SLIDING SCALE (NOVOLOG) 1 VIAL SQ SCH ×4 (06:24→22:34)
[2016-04-21] MEDS: FUROSEMIDE 40 MG/4 ML INJECTABLE VIAL IVPUSH SCH (06:28)
[2016-04-21 07:07] LABS: BASOPHIL 0.8 % (0-2.0); EOSINOPHIL 4.9 % (0-4.5); MCH 29.5 pg (25.7-33.7); MEAN CELL VOLUME 89.5 fl (80-96); MEAN PLT VOLUME 7.7 fl (7.5-11.1); NEUTROPHILS 72.2 % (42.8-82.8); PLATELET COUNT 233 K/MM3 (134-434); RDW 14.3 % (11.9-15.9)
[2016-04-21 07:35] LABS: CALCIUM 8.5 mg/dL (8.5-10.1); CREATININE 6.7 mg/dL (0.7-1.3); PHOSPHOROUS 5.2 mg/dL (2.5-4.9); TOT PROT 6.6 g/dl (6.4-8.2)
[2016-04-21 07:36] LABS: ALBUMIN 3.3 g/dl (3.4-5.0); BILIRUBIN,TOTAL 0.4 mg/dL (0.2-1.0)
[2016-04-21] MEDS: SEVELAMER CARBONATE 800 MG TAB (FP) PO SCH ×3 (08:05→17:04)
--- NOTE | 2016-04-21 09:41 | PN ---
Physical Exam: SUBJECTIVE: Patient seen and examined Pt resting comfortably in bed, c/o bilateral thigh pain, no other c/o. OBJECTIVE: Vital Signs Period Temp Pulse Resp BP Sys/Ledbetter Pulse Ox Last 24 Hr 97.2 F-98.8 F 70-142 18-20 103-147/54-74 97-97 GENERAL: The patient is awake, alert, and fully oriented, in no acute distress. HEAD: Normal with no signs of trauma. EYES: PERRL, extraocular movements intact, sclera anicteric, conjunctiva clear. No ptosis. ENT: Ears normal, nares patent, oropharynx clear without exudates, moist mucous membranes. NECK: Trachea midline, full range of motion, supple. LUNGS: Breath sounds equal, clear to auscultation bilaterally, no wheezes, no crackles, no accessory muscle use. HEART: Regular rate and rhythm, S1, S2, murmur present,no rub or gallop., RT chest perma cath ABDOMEN: Soft, mild diffuse tenderness( which is chronic),normoactive bowel sounds, no guarding, no rebound, no hepatosplenomegaly, no masses. EXTREMITIES: 2+ pulses, warm, mild redness,well-perfused, no edema. NEUROLOGICAL: Cranial nerves II through XII grossly intact. Normal speech, gait not observed. PSYCH: Normal mood, normal affect. SKIN: Warm, dry, normal turgor, no rashes or lesions noted Laboratory Results - last 24 hr 04/20/16 04/20/16 04/21/16 18:01 21:25 06:00 WBC 10.0 RBC 3.18 L Hgb 9.4 L Hct 28.5 L MCV 89.5 MCHC 33.0 RDW 14.3 Plt Count 233 MPV 7.7 Neutrophils % 72.2 Lymphocytes % 11.0 D Monocytes % 11.1 H Eosinophils % 4.9 H Basophils % 0.8 Sodium Potassium Chloride Carbon Dioxide Anion Gap BUN Creatinine Creat Clearance w eGFR POC Glucometer 86 139 Random Glucose Calcium Phosphorus Magnesium Total Bilirubin AST ALT Alkaline Phosphatase Total Protein Albumin 04/21/16 04/21/16 06:00 06:21 WBC RBC Hgb Hct MCV MCHC RDW Plt Count MPV Neutrophils % Lymphocytes % Monocytes % Eosinophils % Basophils % Sodium 139 Potassium 3.3 L Chloride 102 Carbon Dioxide 26 Anion Gap 11 BUN 70 H Creatinine 6.7 H D Creat Clearance w eGFR 8.43 POC Glucometer 96 Random Glucose 99 Calcium 8.5 Phosphorus 5.2 H Magnesium 2.0 Total Bilirubin 0.4 AST 10 L D ALT 13 Alkaline Phosphatase 37 L Total Protein 6.6 Albumin 3.3 L Active Medications Generic Name Dose Route Start Last Admin Trade Name Freq PRN Reason Stop Dose Admin Acetaminophen 650 mg 04/18/16 13:53 Tylenol - PO Q6H PRN FEVER OR PAIN Aspirin 81 mg 04/19/16 10:00 04/20/16 09:42 Asa - PO 81 mg DAILY MARY Administration Atorvastatin Calcium 10 mg 04/18/16 22:00 04/20/16 21:40 Lipitor - PO 10 mg HS MARY Administration Clopidogrel Bisulfate 75 mg 04/19/16 10:00 04/20/16 09:43 Plavix - PO 75 mg DAILY MARY Administration Diphenhydramine HCl 25 mg 04/19/16 11:06 04/20/16 18:56 Benadryl - PO 25 mg Q6H PRN Administration FOR ITCHING Epoetin Campos 10,000 units 04/21/16 08:20 Epogen - IVPUSH 04/21/16 08:21 ONCE ONE Fenofibric Acid 45 mg 04/19/16 10:00 04/20/16 18:54 Trilipix - PO 45 mg DAILY MARY Administration Furosemide 80 mg 04/18/16 14:00 04/21/16 06:28 Lasix Injection - IVPUSH 80 mg BID@0600,1400 MARY Administration Heparin Sodium (Porcine) 1,000 unit 04/21/16 08:20 Heparin - IVPUSH 04/21/16 08:21 ONCE ONE Hydralazine HCl 25 mg 04/18/16 22:00 04/20/16 21:39 Apresoline - PO 25 mg BID MARY Administration Insulin Aspart 1 vial 04/18/16 16:30 04/21/16 06:24 Novolog Vial Sliding Scale - SQ Not Given ACHS [facility] Protocol Isosorbide Dinitrate 10 mg 04/18/16 22:00 04/20/16 21:40 Isordil - PO 10 mg BID MARY Administration Lactic Acid 1 applic 04/20/16 23:51 04/21/16 00:05 Lac-Hydrin 12 TP 1 applic BID PRN Administration FOR ITCHING Metoprolol Succinate 50 mg 04/20/16 22:00 04/20/16 21:30 Toprol Xl - PO Not Given BID MARY Metoprolol Tartrate 5 mg 04/20/16 10:02 Lopressor Injection - IVPUSH Q4H PRN TACHYCARDIA Multivitamins/Minerals/Vitamin C 1 tab 04/19/16 10:00 04/20/16 09:43 Tab-A-Vit - PO 1 tab DAILY MARY Administration Ondansetron HCl 4 mg 04/18/16 13:53 Zofran Injection IVPB Q6H PRN NAUSEA Sertraline HCl 50 mg 04/18/16 22:00 04/20/16 21:40 Zoloft - PO 50 mg HS MARY Administration Sevelamer Carbonate 1,600 mg 04/19/16 11:09 04/20/16 18:02 Renvela - PO 1,600 mg TIDCM MARY Administration Sodium Bicarbonate 650 mg 04/18/16 22:00 04/20/16 21:39 Sodium Bicarbonate - PO 650 mg BID MARY Administration Tramadol HCl 50 mg 04/19/16 03:22 04/20/16 23:11 Ultram - PO 50 mg Q8H PRN Administration PAIN Trazodone HCl 200 mg 04/18/16 22:00 04/20/16 21:40 Desyrel - PO 200 mg HS MARY Administration * Imaging CT scan of Lower extremities - done, report pending CxR- No acute pathology Renal US: No acute pathology *ASSESSMENT/PLAN: This is a 60 year-old man with a PMH of HTN, HLD, CAD s/p CABG x 4 (2006), systolic HF, paroxysmal afib, NIDDM, and CKD Stage 5. Admitted for LE pain and weakness, worsening renal function, now s/p initiation of HD. Progressive CKD Stage 5 with proteinuria with uremic symptoms warranting dialysis *ESRD on HD - On dialysis HD 04/18, 04/19,04/20, planfor dialysis today - Renal following -will continue Lasix, sodium bicarb -vein mapping done but patient wants PD,sx is on hold for now as pt still deciding *Acute on chronic systolic heart failure- stable -04/18/16 echo: LV moderately reduced, moderate anterior wall hypokinesis, mid anteroseptal wall moderate hypokinesis, basal anteroseptal wall moderate hypokinesis; RV normal; severe LAE, moderate AUGUSTINA; mild MR; moderate TR; mild pHTN; cannot r/o --Lasix IV 80mg BID, metoprolol -HD for fluid balance - daily weight monitoring ,229>216 now -strict I&Os, *Hyperphosphatemia,Pruritis -thigh muscle pain/contractions discussed with Dr. Weiss, he is concerned for calciphylaxis given uremia/high Ca x Phos product -CT BLE done, awaiting read to r/o calcium deposition in soft tissues, report still pending - will continue sevelamer with goal phos <5.5 -statin dc'd as possible contributing factor *Paroxysmal afib/aflutter- now SR - HR controlled will cont on metoprolol TID -has not been on a/c in the past but should readdress , anemia with s/p blood transfusion -continue ASA, plavix - cardiology following *Hypertension-BP well-controlled -continue metoprolol, hydrazine, isosorbide *CAD s/p CABG x 4 -troponins mildly elevated but flat in setting of severe renal disease, normal CK; not consistent with ACS , remains asymptomatic -continue metoprolol, Lipitor, ASA, Plavix - cardiology following *Hyperlipidemia -continue Lipitor *Anemia of chronic disease -s/p 1 unit PRBC 2/20 -h/h stable -stool occult negative *NIDDM -Novolog sliding scale coverage - FS monitoring - Diabetic diet *F/E/N Fluids: PO intake adequate Electrolytes: replete as indicated Nutrition: renal diabetic diet DVT prophylaxis: hold chemical prophylaxis; SCDs, oob, ambulation PT eval done: Plan Rehab placement once medically cleared. Visit type - Emergency Visit Emergency Visit: Yes ED Registration Date: 04/18/16 Care time: The patient presented to the Emergency Department on the above date and was hospitalized for further evaluation of their emergent condition. - New Patient This patient is new to me today: Yes Date on this admission: 04/21/16 - Critical Care Critical Care patient: No
[2016-04-21] MEDS: SODIUM BICARBONATE 650 MG TABLET PO SCH ×2 (10:05→21:38)
[2016-04-21] MEDS: ISOSORBIDE DINITRATE 10 MG TABLET (FP) PO SCH (10:05)
[2016-04-21] MEDS: CLOPIDOGREL BISULFATE 75 MG TABLET (FP) PO SCH ×2 (10:05→17:06)
[2016-04-21] MEDS: hydrALAZINE HCL 25 MG TABLET (FP) PO SCH (10:05)
[2016-04-21] MEDS: ASPIRIN 81 MG CHEWABLE TABLETS PO SCH ×2 (10:05→17:05)
[2016-04-21] MEDS: METOPROLOL SUCCINATE 50 MG TAB.SR.24H (FP) PO SCH (10:06)
[2016-04-21] MEDS: FENOFIBRIC ACID 45 MG CAP PO SCH ×2 (10:06→17:06)
[2016-04-21] MEDS: MULTIVITAMINS (DAILY MVI) TABLET (FP) PO SCH ×2 (10:06→17:04)
--- NOTE | 2016-04-21 10:38 | PN ---
Progress Note (short form) - Note Progress Note: s: no cp sob palps dizzy; no further orthopnea o: Vital Signs Period Temp Pulse Resp BP Sys/Ledbetter Pulse Ox Last 24 Hr 97.2 F-98.8 F 70-142 18-20 103-147/54-74 97 nad irreg, rr, s1s2 2/6 murmur at apex. cta bl nl eff aaox3 trace LE edema with erythema, healed wounds no jaundice diaphoresis Current Medications Generic Name Dose Route Start Last Admin Trade Name Freq PRN Reason Stop Dose Admin Acetaminophen 650 mg 04/18/16 13:53 Tylenol - PO Q6H PRN FEVER OR PAIN Aspirin 81 mg 04/19/16 10:00 04/21/16 10:05 Asa - PO Not Given DAILY [facility] Atorvastatin Calcium 10 mg 04/18/16 22:00 04/20/16 21:40 Lipitor - PO 10 mg HS MARY Administration Clopidogrel Bisulfate 75 mg 04/19/16 10:00 04/21/16 10:05 Plavix - PO Not Given DAILY [facility] Diphenhydramine HCl 25 mg 04/19/16 11:06 04/20/16 18:56 Benadryl - PO 25 mg Q6H PRN Administration FOR ITCHING Epoetin Campos 10,000 units 04/21/16 08:20 Epogen - IVPUSH 04/21/16 08:21 ONCE ONE Fenofibric Acid 45 mg 04/19/16 10:00 04/21/16 10:06 Trilipix - PO Not Given DAILY [facility] Furosemide 80 mg 04/21/16 14:00 Lasix - PO BID@0600,1400 [facility] Heparin Sodium (Porcine) 1,000 unit 04/21/16 08:20 Heparin - IVPUSH 04/21/16 08:21 ONCE ONE Hydralazine HCl 25 mg 04/18/16 22:00 04/21/16 10:05 Apresoline - PO Not Given BID [facility] Insulin Aspart 1 vial 04/18/16 16:30 04/21/16 06:24 Novolog Vial Sliding Scale - SQ Not Given ACHS [facility] Protocol Isosorbide Dinitrate 10 mg 04/18/16 22:00 04/21/16 10:05 Isordil - PO Not Given BID [facility] Lactic Acid 1 applic 04/20/16 23:51 04/21/16 00:05 Lac-Hydrin 12 TP 1 applic BID PRN Administration FOR ITCHING Metoprolol Succinate 50 mg 04/20/16 22:00 04/21/16 10:06 Toprol Xl - PO Not Given BID MARY Metoprolol Tartrate 5 mg 04/20/16 10:02 Lopressor Injection - IVPUSH Q4H PRN TACHYCARDIA Multivitamins/Minerals/Vitamin C 1 tab 04/19/16 10:00 04/21/16 10:06 Tab-A-Vit - PO Not Given DAILY MARY Ondansetron HCl 4 mg 04/18/16 13:53 Zofran Injection IVPB Q6H PRN NAUSEA Potassium Chloride 40 meq 04/21/16 10:00 K-Dur - PO DAILY MARY Sertraline HCl 50 mg 04/18/16 22:00 04/20/16 21:40 Zoloft - PO 50 mg HS MARY Administration Sevelamer Carbonate 1,600 mg 04/19/16 11:09 04/21/16 08:05 Renvela - PO Not Given TIDCM MARY Sodium Bicarbonate 650 mg 04/18/16 22:00 04/21/16 10:05 Sodium Bicarbonate - PO Not Given BID MARY Tramadol HCl 50 mg 04/19/16 03:22 04/20/16 23:11 Ultram - PO 50 mg Q8H PRN Administration PAIN Trazodone HCl 200 mg 04/18/16 22:00 04/20/16 21:40 Desyrel - PO 200 mg HS MARY Administration CBC, BMP 04/21/16 06:00 04/21/16 06:00 ecg: poor baseline. likely atrial flutter, VR 124 bpm. IVCD. no ischemic changes. tele: afib/aflutter, mostly VR 80s-90s, occ rvr 130s echo 09/2015: tds; mod lve, mild-mod dec lvef, global HK, nl rv, mod-sev mr, sev tr, marixa, nl rvsp echo 03/2016: mild lve, mod dec lvef, moderate ant, anteroseptal HK, nl rv size , marixa, mild mr, mod tr, mild phtn a/p: 60 m hx htn, hld, dm, cabg (04/2006), ESRD, afib, syst chf, here s/p fall 2/ 2 weakness and LE pain and found to have worsened creatinine now with plan for HD initiation. syst chf: -sob and orthopnea improved with iv lasix and HD -will change to home po lasix 80 bid and cont HD per renal -echo here similar to 09/2015, shows mod reduced lvef -con't hydralazine/isordil, bb -stopped diltiazem here in light of cardiomyopathy. ESRD - renal following, now on HD htn: -continue current meds hld: -cont statin cad s/p cabg: -intermediate trop elevation with flat trend (in setting of severe renal dysfunction), nl CK --> not c/w acs, no anginal sxs. EKG without ischemic changes. -echo w/o sig change from prior -cont statin, bb, asa afib/flutter: -cont toprol, occasional rvr but rate mostly controlled. Monitor on tele, if HR fast will decrease imdur/hydralazine to make bp room for more toprol -has not been on AC in the past. cont home asa, plavix for now, but will need to readdress AC once anemia is evaluated (hgb in 6's here with need for prbcs) and procedures are completed.
[2016-04-21] MEDS: hydrOXYzine HCL 10 MG TABLET PO SCH ×3 (12:00→23:14)
--- NOTE | 2016-04-21 12:37 | PN ---
Progress Note (short form) - Note Progress Note: Renal Follow up for CKD Stage 5 ->ESRD Pt seen and examined at the bedside had hard time sleeping last night because of pain and puritis no chest pain continue to have mild sob no N/V/D s/p isolated UF yesterday Vital Signs Temperature 98.2 F 04/21/16 06:00 Pulse Rate 92 H 04/21/16 10:00 Respiratory Rate 18 04/21/16 10:00 Blood Pressure 120/63 04/21/16 10:00 O2 Sat by Pulse Oximetry (%) 97 04/21/16 09:00 Intake & Output 04/18/16 04/19/16 04/20/16 04/21/16 23:59 23:59 23:59 23:59 Intake Total 860 0 240 Output Total 2935 1300 1200 Balance -2075 -1300 -960 Weight 228 lb 2 oz 222 lb 6 oz 220 lb 2 oz 216 lb 12.8 oz Gen: awake and alert HEENT: NC/AT, MMM, No JVD CVS: RRR, No M/R Lungs: CTA, no rales or wheeze Abd: soft NT/ND Ext: 2+ edema extending up to upper thigh. Muscle wasting Neuro: AAOX3, no focal defects. + mild asterixis. CBC, BMP 04/21/16 06:00 04/21/16 06:00 Current Medications Acetaminophen (Tylenol -) 650 mg PO Q6H PRN PRN Reason: FEVER OR PAIN Aspirin (Asa -) 81 mg PO DAILY [facility] Last Admin: 04/21/16 10:05 Dose: Not Given Atorvastatin Calcium (Lipitor -) 10 mg PO HS [facility] Last Admin: 04/20/16 21:40 Dose: 10 mg Clopidogrel Bisulfate (Plavix -) 75 mg PO DAILY [facility] Last Admin: 04/21/16 10:05 Dose: Not Given Diphenhydramine HCl (Benadryl -) 25 mg PO Q6H PRN PRN Reason: FOR ITCHING Last Admin: 04/20/16 18:56 Dose: 25 mg Epoetin Campos (Epogen -) 10,000 units IVPUSH ONCE ONE Stop: 04/21/16 08:21 Fenofibric Acid (Trilipix -) 45 mg PO DAILY [facility] Last Admin: 04/21/16 10:06 Dose: Not Given Furosemide (Lasix -) 80 mg PO BID@0600,1400 [facility] Heparin Sodium (Porcine) (Heparin -) 1,000 unit IVPUSH ONCE ONE Stop: 04/21/16 08:21 Hydralazine HCl (Apresoline -) 25 mg PO BID [facility] Last Admin: 04/21/16 10:05 Dose: Not Given Hydroxyzine HCl (Atarax -) 10 mg PO Q6HPO [facility] Insulin Aspart (Novolog Vial Sliding Scale -) 1 vial SQ ACHS [facility] PRN Reason: Protocol Last Admin: 04/21/16 11:41 Dose: Not Given Isosorbide Dinitrate (Isordil -) 10 mg PO BID [facility] Last Admin: 04/21/16 10:05 Dose: Not Given Lactic Acid (Lac-Hydrin 12) 1 applic TP BID PRN PRN Reason: FOR ITCHING Last Admin: 04/21/16 00:05 Dose: 1 applic Metoprolol Succinate (Toprol Xl -) 50 mg PO BID [facility] Last Admin: 04/21/16 10:06 Dose: Not Given Metoprolol Tartrate (Lopressor Injection -) 5 mg IVPUSH Q4H PRN PRN Reason: TACHYCARDIA Multivitamins/Minerals/Vitamin C (Tab-A-Vit -) 1 tab PO DAILY [facility] Last Admin: 04/21/16 10:06 Dose: Not Given Ondansetron HCl (Zofran Injection) 4 mg IVPB Q6H PRN PRN Reason: NAUSEA Potassium Chloride (K-Dur -) 40 meq PO DAILY [facility] Sertraline HCl (Zoloft -) 50 mg PO [facility] Last Admin: 04/20/16 21:40 Dose: 50 mg Sevelamer Carbonate (Renvela -) 1,600 mg PO TIDCM [facility] Last Admin: 04/21/16 08:05 Dose: Not Given Sodium Bicarbonate (Sodium Bicarbonate -) 650 mg PO BID [facility] Last Admin: 04/21/16 10:05 Dose: Not Given Tramadol HCl (Ultram -) 50 mg PO Q8H PRN PRN Reason: PAIN Last Admin: 04/20/16 23:11 Dose: 50 mg Trazodone HCl (Desyrel -) 200 mg PO [facility] Last Admin: 04/20/16 21:40 Dose: 200 mg A/P 60 year old gentleman with PMhx of CKD Stage 5 with nephrotic range proteinuria , CAD s/p CABG, DM Type 2, Depression, CHF who presented to [place] ED s/p fall with LE pain and swelling and found to have BUN/Cr of 141/10 (baseline Cr ~ 6). #Progressive CKD Stage 5 now ESRD on HD for 3rd Hd session today with UF as tolerated outpatient HD unit placement Dose all meds for intermittent HD #LE edema/CHF Continue Oral lasix UF with HD as tolerated #Tender lesions in LE CT scan not read yet however appears to be calcifications in the soft tissues consisent with Caliphylaxis Continue Phos binder Avoid Vit D supplementation May need Sensipar when PTH resulted ? role for sodium thiosulfate w/o ulcerations #Puritis related to hyperphosphatemia Give Atarax want to prevent itching of lesions to prevent skin breakage and ulcer formation Won Weiss DO
[2016-04-21] MEDS ORDERED: EPOETIN ALFA 10,000 UNIT/1 ML VIAL IVPUSH ONE (13:30)
[2016-04-21] MEDS ORDERED: HEPARIN NA (PORCINE) 5,000 UNITS/ML 1ML VIAL IVPUSH ONE (13:30)
[2016-04-21] MEDS ORDERED: PT OWN MED DRAWER 7, Y5N ONE ×2 (16:59→23:19)
[2016-04-21] MEDS: POTASSIUM CHLORIDE TABS 20 MEQ TABLET.ER (FP) PO SCH (17:05)
[2016-04-21] MEDS: FUROSEMIDE 40 MG TABLET (FP) PO SCH (17:05)
--- NOTE | 2016-04-21 18:25 | HOSP ---
Physical Examination Vital Signs: Vital Signs Temperature 98.1 F 04/21/16 14:00 Pulse Rate 97 H 04/21/16 15:30 Respiratory Rate 16 04/21/16 15:30 Blood Pressure 129/72 04/21/16 15:30 O2 Sat by Pulse Oximetry (%) 97 04/21/16 09:00 Labs: CBC, BMP 04/21/16 06:00 04/21/16 06:00 Hospitalist Encounter Assessment: Called to bedside by RN for uncontrolled HR of 140-150's. Pt is refusing PRN IV lopressor. He states he is asymptomatic and closed the door to use the toilet. - Will increase metoprolol to 100 BID, to be given at 1999 - Stop Isordil and Hydralazine - Pt aware of changed and will take his evening medications with above changes - Above d/w Cardiology
[2016-04-21] MEDS ORDERED: traZODone HCL 50 MG TABLET (FP) ONE (21:28)
[2016-04-21] MEDS: METOPROLOL SUCCINATE 100 MG TAB.SR.24H (FP) PO SCH (21:38)
[2016-04-21] MEDS: SERTRALINE HCL 50 MG TABLET (FP) PO SCH (21:39)
[2016-04-21] MEDS: traZODone HCL 100 MG TABLET (FP) PO SCH (21:39)
[2016-04-21] MEDS: ATORVASTATIN CA 10 MG TABLET (FP) PO SCH (21:39)
[2016-04-21] MEDS ORDERED: INSULIN (NOVOLOG) ASPART 100 UNITS/ML 10ML VIAL ONE (22:31)
[2016-04-22] MEDS: hydrOXYzine HCL 10 MG TABLET PO SCH ×3 (05:28→17:48)
[2016-04-22] MEDS: FUROSEMIDE 40 MG TABLET (FP) PO SCH ×2 (05:28→15:05)
[2016-04-22] MEDS: INSULIN SLIDING SCALE (NOVOLOG) 1 VIAL SQ SCH ×4 (06:08→21:13)
[2016-04-22 07:00] LABS: EOSINOPHIL 3.5 % (0-4.5); MCH 29.2 pg (25.7-33.7); MCHC 32.4 g/dl (32.0-35.9); MEAN CELL VOLUME 90.2 fl (80-96); MEAN PLT VOLUME 8.1 fl (7.5-11.1); NEUTROPHILS 72.3 % (42.8-82.8); PLATELET COUNT 248 K/MM3 (134-434); RDW 14.6 % (11.9-15.9); WHITE BLOOD COUNT 12.2 K/mm3 (4.0-10.0)
[2016-04-22 07:48] LABS: CREATININE 5.6 mg/dL (0.7-1.3); PHOSPHOROUS 3.8 mg/dL (2.5-4.9)
[2016-04-22] MEDS ORDERED: PT OWN MED DRAWER 7, Y5N ONE ×2 (08:52→17:53)
[2016-04-22] MEDS: METOPROLOL SUCCINATE 100 MG TAB.SR.24H (FP) PO SCH ×2 (09:10→21:12)
[2016-04-22] MEDS: SODIUM BICARBONATE 650 MG TABLET PO SCH ×2 (09:10→21:12)
[2016-04-22] MEDS: CLOPIDOGREL BISULFATE 75 MG TABLET (FP) PO SCH (09:10)
[2016-04-22] MEDS: ASPIRIN 81 MG CHEWABLE TABLETS PO SCH (09:10)
[2016-04-22] MEDS: MULTIVITAMINS (DAILY MVI) TABLET (FP) PO SCH (09:10)
[2016-04-22] MEDS: POTASSIUM CHLORIDE TABS 20 MEQ TABLET.ER (FP) PO SCH (10:00)
[2016-04-22] MEDS: SEVELAMER CARBONATE 800 MG TAB (FP) PO SCH ×3 (10:00→17:48)
[2016-04-22] MEDS: FENOFIBRIC ACID 45 MG CAP PO SCH (10:00)
--- NOTE | 2016-04-22 10:48 | PN ---
Progress Note (short form) - Note Progress Note: Renal Follow up for CKD Stage 5 ->ESRD Pt seen and examined at the bedside SOB is improved s/p dialysis yesterday with 2.5L UF continues to have puritis of LE no chest pain, N/V/D Vital Signs Temperature 97.4 F L 04/22/16 09:16 Pulse Rate 81 04/22/16 09:16 Respiratory Rate 20 04/22/16 09:16 Blood Pressure 107/55 04/22/16 09:16 O2 Sat by Pulse Oximetry (%) 100 04/21/16 21:00 Intake & Output 04/19/16 04/20/16 04/21/16 04/22/16 23:59 23:59 23:59 23:59 Intake Total 0 240 120 120 Output Total 1300 1200 450 60 Balance -1300 -960 -330 60 Weight 222 lb 6 oz 220 lb 2 oz 216 lb 12.8 oz 211 lb Gen: awake and alert HEENT: NC/AT, MMM, No JVD CVS: RRR, No M/R Lungs: CTA, no rales or wheeze Abd: soft NT/ND Ext: 2+ edema extending up to upper thigh. Muscle wasting Neuro: AAOX3, no focal defects. + mild asterixis. CBC, BMP 04/22/16 05:45 04/22/16 05:45 Laboratory Tests 04/22/16 05:45 Calcium 9.0 Phosphorus 3.8 D Current Medications Acetaminophen (Tylenol -) 650 mg PO Q6H PRN PRN Reason: FEVER OR PAIN Aspirin (Asa -) 81 mg PO DAILY [facility] Last Admin: 04/22/16 09:10 Dose: 81 mg Atorvastatin Calcium (Lipitor -) 10 mg PO HS [facility] Last Admin: 04/21/16 21:39 Dose: 10 mg Clopidogrel Bisulfate (Plavix -) 75 mg PO DAILY [facility] Last Admin: 04/22/16 09:10 Dose: 75 mg Diphenhydramine HCl (Benadryl -) 25 mg PO Q6H PRN PRN Reason: FOR ITCHING Last Admin: 04/20/16 18:56 Dose: 25 mg Fenofibric Acid (Trilipix -) 45 mg PO DAILY [facility] Last Admin: 04/21/16 17:06 Dose: 45 mg Furosemide (Lasix -) 80 mg PO BID@0600,1400 [facility] Last Admin: 04/22/16 05:28 Dose: 80 mg Hydroxyzine HCl (Atarax -) 10 mg PO Q6HPO MARY Last Admin: 04/22/16 05:28 Dose: 10 mg Insulin Aspart (Novolog Vial Sliding Scale -) 1 vial SQ ACHS MARY PRN Reason: Protocol Last Admin: 04/22/16 06:08 Dose: Not Given Lactic Acid (Lac-Hydrin 12) 1 applic TP BID PRN PRN Reason: FOR ITCHING Last Admin: 04/21/16 00:05 Dose: 1 applic Metoprolol Succinate (Toprol Xl -) 100 mg PO BID [facility] Last Admin: 04/22/16 09:10 Dose: 100 mg Metoprolol Tartrate (Lopressor Injection -) 5 mg IVPUSH Q4H PRN PRN Reason: TACHYCARDIA Multivitamins/Minerals/Vitamin C (Tab-A-Vit -) 1 tab PO DAILY [facility] Last Admin: 04/22/16 09:10 Dose: 1 tab Ondansetron HCl (Zofran Injection) 4 mg IVPB Q6H PRN PRN Reason: NAUSEA Potassium Chloride (K-Dur -) 40 meq PO DAILY [facility] Last Admin: 04/21/16 17:05 Dose: 40 meq Sertraline HCl (Zoloft -) 50 mg PO HS [facility] Last Admin: 04/21/16 21:39 Dose: 50 mg Sevelamer Carbonate (Renvela -) 1,600 mg PO TIDCM [facility] Last Admin: 04/21/16 17:04 Dose: 1,600 mg Sodium Bicarbonate (Sodium Bicarbonate -) 650 mg PO BID [facility] Last Admin: 04/22/16 09:10 Dose: 650 mg Tramadol HCl (Ultram -) 50 mg PO Q8H PRN PRN Reason: PAIN Last Admin: 04/20/16 23:11 Dose: 50 mg Trazodone HCl (Desyrel -) 200 mg PO HS [facility] Last Admin: 04/21/16 21:39 Dose: 200 mg A/P 60 year old gentleman with PMhx of CKD Stage 5 with nephrotic range proteinuria , CAD s/p CABG, DM Type 2, Depression, CHF who presented to [facility] s/p fall with LE pain and swelling and found to have BUN/Cr of 141/10 (baseline Cr ~ 6). #Progressive CKD Stage 5 now ESRD on HD Tolerating HD well via tunneled HD catheter outpatient HD unit placement pending no acute indication for dialysis today Next planned HD is for sunday #LE edema/CHF Continue Oral lasix UF with HD as tolerated #Tender lesions in LE CT of LE confirmed soft tissue calcifications. Continue Phos binder with goal phos < 4.5 Avoid Vit D supplementation May need Sensipar when PTH resulted -PTH pending ? role for sodium thiosulfate w/o ulcerations advised pt to avoid itching that area as he is at risk of ulcerations #Puritis related to hyperphosphatemia Give Atarax want to prevent itching of lesions to prevent skin breakage and ulcer formation Won Weiss DO
--- NOTE | 2016-04-22 11:45 | PN ---
Progress Note, Physician History of Present Illness: No complaints Tele: NSR at 88 with PAF/flutter - Current Medication List Current Medications: Active Medications Acetaminophen (Tylenol -) 650 mg PO Q6H PRN PRN Reason: FEVER OR PAIN Aspirin (Asa -) 81 mg PO DAILY [facility] Last Admin: 04/22/16 09:10 Dose: 81 mg Atorvastatin Calcium (Lipitor -) 10 mg PO HS [facility] Last Admin: 04/21/16 21:39 Dose: 10 mg Clopidogrel Bisulfate (Plavix -) 75 mg PO DAILY [facility] Last Admin: 04/22/16 09:10 Dose: 75 mg Diphenhydramine HCl (Benadryl -) 25 mg PO Q6H PRN PRN Reason: FOR ITCHING Last Admin: 04/20/16 18:56 Dose: 25 mg Fenofibric Acid (Trilipix -) 45 mg PO DAILY [facility] Last Admin: 04/22/16 10:00 Dose: Not Given Furosemide (Lasix -) 80 mg PO BID@0600,1400 [facility] Last Admin: 04/22/16 05:28 Dose: 80 mg Hydroxyzine HCl (Atarax -) 10 mg PO Q6HPO [facility] Last Admin: 04/22/16 05:28 Dose: 10 mg Insulin Aspart (Novolog Vial Sliding Scale -) 1 vial SQ ACHS [facility] PRN Reason: Protocol Last Admin: 04/22/16 06:08 Dose: Not Given Lactic Acid (Lac-Hydrin 12) 1 applic TP BID PRN PRN Reason: FOR ITCHING Last Admin: 04/21/16 00:05 Dose: 1 applic Metoprolol Succinate (Toprol Xl -) 100 mg PO BID [facility] Last Admin: 04/22/16 09:10 Dose: 100 mg Metoprolol Tartrate (Lopressor Injection -) 5 mg IVPUSH Q4H PRN PRN Reason: TACHYCARDIA Multivitamins/Minerals/Vitamin C (Tab-A-Vit -) 1 tab PO DAILY [facility] Last Admin: 04/22/16 09:10 Dose: 1 tab Ondansetron HCl (Zofran Injection) 4 mg IVPB Q6H PRN PRN Reason: NAUSEA Potassium Chloride (K-Dur -) 40 meq PO DAILY [facility] Last Admin: 04/22/16 10:00 Dose: Not Given Sertraline HCl (Zoloft -) 50 mg PO HS [facility] Last Admin: 04/21/16 21:39 Dose: 50 mg Sevelamer Carbonate (Renvela -) 1,600 mg PO TIDCM [facility] Last Admin: 04/22/16 10:00 Dose: Not Given Sodium Bicarbonate (Sodium Bicarbonate -) 650 mg PO BID [facility] Last Admin: 04/22/16 09:10 Dose: 650 mg Tramadol HCl (Ultram -) 50 mg PO Q8H PRN PRN Reason: PAIN Last Admin: 04/20/16 23:11 Dose: 50 mg Trazodone HCl (Desyrel -) 200 mg PO [facility] Last Admin: 04/21/16 21:39 Dose: 200 mg - Objective Vital Signs: Vital Signs Temperature 97.4 F L 04/22/16 09:16 Pulse Rate 81 04/22/16 09:16 Respiratory Rate 20 04/22/16 09:16 Blood Pressure 107/55 04/22/16 09:16 O2 Sat by Pulse Oximetry (%) 100 04/21/16 21:00 Constitutional: Yes: No Distress Eyes: Yes: WNL HENT: Yes: WNL Neck: Yes: WNL Cardiovascular: Yes: WNL Respiratory: Yes: WNL Gastrointestinal: Yes: WNL Edema: No Labs: CBC, BMP 04/22/16 05:45 04/22/16 05:45 INR, PTT INR 1.43 (0.82-1.09) H 04/19/16 15:50 Assessment/Plan ecg: poor baseline. likely atrial flutter, VR 124 bpm. IVCD. no ischemic changes. tele: afib/aflutter, mostly VR 80s-90s, occ rvr 130s echo 09/2015: tds; mod lve, mild-mod dec lvef, global HK, nl rv, mod-sev mr, sev tr, marixa, nl rvsp echo 03/2016: mild lve, mod dec lvef, moderate ant, anteroseptal HK, nl rv size , marixa, mild mr, mod tr, mild phtn a/p: 60 m hx htn, hld, dm, cabg (04/2006), ESRD, afib, syst chf, here s/p fall 2/ 2 weakness and LE pain and found to have worsened creatinine now with plan for HD initiation. syst chf: -sob and orthopnea improved with iv lasix and HD -On po lasix 80 bid and cont HD per renal -echo here similar to 09/2015, shows mod reduced lvef -con't hydralazine/isordil, bb -stopped diltiazem here in light of cardiomyopathy. ESRD - renal following, now on HD htn: -continue current meds hld: -cont statin cad s/p cabg: -intermediate trop elevation with flat trend (in setting of severe renal dysfunction), nl CK --> not c/w acs, no anginal sxs. EKG without ischemic changes. -echo w/o sig change from prior -cont statin, bb, asa afib/flutter: -cont toprol, occasional rvr but rate mostly controlled. Monitor on tele, if HR fast will decrease imdur/hydralazine to make bp room for more toprol -has not been on AC in the past. cont home asa, plavix for now, but will need to readdress AC once anemia is evaluated (hgb in 6's here with need for prbcs) and procedures are completed.
[2016-04-22] MEDS ORDERED: INSULIN (NOVOLOG) ASPART 100 UNITS/ML 10ML VIAL ONE (12:02)
--- NOTE | 2016-04-22 19:39 | PN ---
[id number]. OBJECTIVE: GENERAL: The patient is awake, alert, and fully oriented, in no acute distress. HEAD: Normal with no signs of trauma. EYES: PERRL, extraocular movements intact, sclera anicteric, conjunctiva clear. No ptosis. ENT: Ears normal, nares patent, oropharynx clear without exudates NECK: Trachea midline, full range of motion, supple. LUNGS: Breath sounds equal, clear to auscultation bilaterally, no wheezes, no crackles, no accessory muscle use. HEART: Regular rate and rhythm, S1, S2, murmur present,no rub or gallop., RT chest perma cath ABDOMEN: Soft, mild diffuse tenderness, normoactive bowel sounds, no guarding, no rebound, no hepatosplenomegaly, no masses. EXTREMITIES: 2+ pulses, warm, mild redness,well-perfused, no edema. NEUROLOGICAL: Normal speech, gait not observed. PSYCH: Normal mood, normal affect. SKIN: Warm, dry, normal turgor, no rashes or lesions noted Vital Signs Period Temp Pulse Resp BP Sys/Ledbetter Pulse Ox Last 24 Hr 97.4 F-98.4 F 81-147 16-20 107-148/55-80 100-100 Laboratory Results - last 24 hr 04/20/16 04/21/16 04/22/16 15:15 22:33 05:26 WBC RBC Hgb Hct MCV MCHC RDW Plt Count MPV Neutrophils % Lymphocytes % Monocytes % Eosinophils % Basophils % Sodium Potassium Chloride Carbon Dioxide Anion Gap BUN Creatinine POC Glucometer 129 101 Random Glucose Calcium Phosphorus Hepatitis C Antibody 0.1 04/22/16 04/22/16 04/22/16 05:45 05:45 11:57 WBC 12.2 H RBC 3.51 L Hgb 10.3 L Hct 31.7 L MCV 90.2 MCHC 32.4 RDW 14.6 Plt Count 248 MPV 8.1 Neutrophils % 72.3 Lymphocytes % 11.0 Monocytes % 12.2 H Eosinophils % 3.5 Basophils % 1.0 Sodium 138 Potassium 3.7 Chloride 98 Carbon Dioxide 27 Anion Gap 13 BUN 51 H D Creatinine 5.6 H POC Glucometer 167 Random Glucose 107 H Calcium 9.0 Phosphorus 3.8 D Hepatitis C Antibody 04/22/16 17:20 WBC RBC Hgb Hct MCV MCHC RDW Plt Count MPV Neutrophils % Lymphocytes % Monocytes % Eosinophils % Basophils % Sodium Potassium Chloride Carbon Dioxide Anion Gap BUN Creatinine POC Glucometer 134 Random Glucose Calcium Phosphorus Hepatitis C Antibody Active Medications Generic Name Dose Route Start Last Admin Trade Name Freq PRN Reason Stop Dose Admin Acetaminophen 650 mg 04/18/16 13:53 Tylenol - PO Q6H PRN FEVER OR PAIN Aspirin 81 mg 04/19/16 10:00 04/22/16 09:10 Asa - PO 81 mg DAILY MARY Administration Atorvastatin Calcium 10 mg 04/18/16 22:00 04/21/16 21:39 Lipitor - PO 10 mg HS MARY Administration Clopidogrel Bisulfate 75 mg 04/19/16 10:00 04/22/16 09:10 Plavix - PO 75 mg DAILY MARY Administration Diphenhydramine HCl 25 mg 04/19/16 11:06 04/20/16 18:56 Benadryl - PO 25 mg Q6H PRN Administration FOR ITCHING Fenofibric Acid 45 mg 04/19/16 10:00 04/22/16 10:00 Trilipix - PO Not Given DAILY MARY Furosemide 80 mg 04/21/16 14:00 04/22/16 15:05 Lasix - PO 80 mg BID@0600,1400 MARY Administration Hydroxyzine HCl 10 mg 04/21/16 12:00 04/22/16 17:48 Atarax - PO 10 mg Q6HPO MARY Administration Insulin Aspart 1 vial 04/18/16 16:30 04/22/16 17:43 Novolog Vial Sliding Scale - SQ Not Given ACHS [facility] Protocol Lactic Acid 1 applic 04/20/16 23:51 04/21/16 00:05 Lac-Hydrin 12 TP 1 applic BID PRN Administration FOR ITCHING Metoprolol Succinate 100 mg 04/21/16 22:00 04/22/16 09:10 Toprol Xl - PO 100 mg BID MARY Administration Metoprolol Tartrate 5 mg 04/20/16 10:02 Lopressor Injection - IVPUSH Q4H PRN TACHYCARDIA Multivitamins/Minerals/Vitamin C 1 tab 04/19/16 10:00 04/22/16 09:10 Tab-A-Vit - PO 1 tab DAILY MARY Administration Ondansetron HCl 4 mg 04/18/16 13:53 Zofran Injection IVPB Q6H PRN NAUSEA Potassium Chloride 40 meq 04/21/16 10:00 04/22/16 10:00 K-Dur - PO Not Given DAILY MARY Sertraline HCl 50 mg 04/18/16 22:00 04/21/16 21:39 Zoloft - PO 50 mg HS MARY Administration Sevelamer Carbonate 1,600 mg 04/19/16 11:09 04/22/16 17:48 Renvela - PO 1,600 mg TIDCM MARY Administration Sodium Bicarbonate 650 mg 04/18/16 22:00 04/22/16 09:10 Sodium Bicarbonate - PO 650 mg BID MARY Administration Tramadol HCl 50 mg 04/19/16 03:22 04/20/16 23:11 Ultram - PO 50 mg Q8H PRN Administration PAIN Trazodone HCl 200 mg 04/18/16 22:00 04/21/16 21:39 Desyrel - PO 200 mg HS MARY Administration ASSESSMENT/PLAN: Patient is a 60 year old man with a past medical history of hypertension, HLD, CAD s/p CABG x 4 (2006), systolic HF, paroxysmal afib, NIDDM, and CKD Stage 5. He was admitted on 04/18/2016 for LE pain and weakness and worsening renal function. He also has progressive CKD Stage 5 with proteinuria with uremic symptoms warranting dialysis : End stage renal disease on HD Assessment/Plan: Dialysis yesterday, renal following next dialysis on Sunday, pending outpatient HD On Lasix 80mg BID On sodium bicarb Renal following Daily weights, strict I&Os Cardiology: Acute on chronic systolic heart failure Assessment/Plan: 04/18/16 echo: LV moderately reduced, moderate anterior wall hypokinesis, mid anteroseptal wall moderate hypokinesis, basal anteroseptal wall moderate hypokinesis; RV normal; severe LAE, moderate AUGUSTINA; mild MR; moderate TR; mild pHTN; cannot r/o On Lasix, Metopolol, monitor weights daily strict intake and output Paroxysmal afib/aflutter - heart rate controlled on Metopolol BID Assessment/Plan: Not on any anticoags On ASA and Plavix Cardiology following Hypertension- chronic BP controoled on metopolol, hydralazine and isosorbide CAD with CABG x 4 Assessment/Plan: troponins mildly elevated, unlikely ACS remains asymptomatic cardiology following Hyperlipidemia Assessment/Plan: continue Lipitor Endocrine: NIDDM - -Novolog sliding scale coverage diabetic diet Hyperphosphatemia,Pruritis - Phos levels 3.8/resolving Assessment/Plan: thigh muscle pain/contractions On sevelamer CT of LE confirmed soft tissue calcifications. Fluids: PO intake adequate Electrolytes: replete as indicated Nutrition: renal diabetic diet DVT prophylaxis: SCDs, oob, ambulation PT following
[2016-04-22] MEDS ORDERED: traZODone HCL 50 MG TABLET (FP) ONE (20:35)
[2016-04-22] MEDS: SERTRALINE HCL 50 MG TABLET (FP) PO SCH (21:13)
[2016-04-22] MEDS: traZODone HCL 100 MG TABLET (FP) PO SCH (21:13)
[2016-04-22] MEDS: ATORVASTATIN CA 10 MG TABLET (FP) PO SCH (21:13)
[2016-04-23] MEDS ORDERED: PT OWN MED DRAWER 7, Y5N ONE ×3 (05:30→23:10)
[2016-04-23] MEDS: FUROSEMIDE 40 MG TABLET (FP) PO SCH ×3 (07:20→15:00)
[2016-04-23] MEDS: hydrOXYzine HCL 10 MG TABLET PO SCH ×5 (07:20→23:11)
[2016-04-23] MEDS: INSULIN SLIDING SCALE (NOVOLOG) 1 VIAL SQ SCH ×2 (07:21→12:30)
[2016-04-23] MEDS: SEVELAMER CARBONATE 800 MG TAB (FP) PO SCH ×3 (07:46→18:10)
[2016-04-23 08:53] LABS: CALCIUM 9.2 mg/dL (8.5-10.1); PHOSPHOROUS 5.1 mg/dL (2.5-4.9)
[2016-04-23 08:59] LABS: CREATININE 7.4 mg/dL (0.7-1.3)
[2016-04-23] MEDS: ASPIRIN 81 MG CHEWABLE TABLETS PO SCH (10:32)
[2016-04-23] MEDS: CLOPIDOGREL BISULFATE 75 MG TABLET (FP) PO SCH (10:33)
[2016-04-23] MEDS: MULTIVITAMINS (DAILY MVI) TABLET (FP) PO SCH (10:33)
[2016-04-23] MEDS: POTASSIUM CHLORIDE TABS 20 MEQ TABLET.ER (FP) PO SCH (10:33)
[2016-04-23] MEDS: METOPROLOL SUCCINATE 100 MG TAB.SR.24H (FP) PO SCH ×2 (10:33→22:03)
[2016-04-23] MEDS: FENOFIBRIC ACID 45 MG CAP PO SCH (10:33)
[2016-04-23] MEDS: SODIUM BICARBONATE 650 MG TABLET PO SCH ×2 (10:33→22:01)
--- NOTE | 2016-04-23 11:18 | PN ---
Progress Note, Physician History of Present Illness: Nausea this AM with emesis RN reports not taking meds (+) diarrhea No tele (patient removed) - Current Medication List Current Medications: Active Medications Acetaminophen (Tylenol -) 650 mg PO Q6H PRN PRN Reason: FEVER OR PAIN Aspirin (Asa -) 81 mg PO DAILY [facility] Last Admin: 04/23/16 10:32 Dose: Not Given Atorvastatin Calcium (Lipitor -) 10 mg PO HS [facility] Last Admin: 04/22/16 21:13 Dose: 10 mg Clopidogrel Bisulfate (Plavix -) 75 mg PO DAILY [facility] Last Admin: 04/23/16 10:33 Dose: Not Given Diphenhydramine HCl (Benadryl -) 25 mg PO Q6H PRN PRN Reason: FOR ITCHING Last Admin: 04/20/16 18:56 Dose: 25 mg Fenofibric Acid (Trilipix -) 45 mg PO DAILY [facility] Last Admin: 04/23/16 10:33 Dose: Not Given Furosemide (Lasix -) 80 mg PO BID@0600,1400 [facility] Last Admin: 04/23/16 07:20 Dose: 80 mg Hydroxyzine HCl (Atarax -) 10 mg PO Q6HPO [facility] Last Admin: 04/23/16 07:20 Dose: 10 mg Insulin Aspart (Novolog Vial Sliding Scale -) 1 vial SQ ACHS [facility] PRN Reason: Protocol Last Admin: 04/23/16 07:21 Dose: Not Given Lactic Acid (Lac-Hydrin 12) 1 applic TP BID PRN PRN Reason: FOR ITCHING Last Admin: 04/21/16 00:05 Dose: 1 applic Metoprolol Succinate (Toprol Xl -) 100 mg PO BID [facility] Last Admin: 04/23/16 10:33 Dose: Not Given Metoprolol Tartrate (Lopressor Injection -) 5 mg IVPUSH Q4H PRN PRN Reason: TACHYCARDIA Multivitamins/Minerals/Vitamin C (Tab-A-Vit -) 1 tab PO DAILY [facility] Last Admin: 04/23/16 10:33 Dose: Not Given Ondansetron HCl (Zofran Injection) 4 mg IVPB Q6H PRN PRN Reason: NAUSEA Potassium Chloride (K-Dur -) 40 meq PO DAILY [facility] Last Admin: 04/23/16 10:33 Dose: Not Given Sertraline HCl (Zoloft -) 50 mg PO HS [facility]ARY Last Admin: 04/22/16 21:13 Dose: 50 mg Sevelamer Carbonate (Renvela -) 1,600 mg PO TIDCM [facility] Last Admin: 04/23/16 07:46 Dose: 1,600 mg Sodium Bicarbonate (Sodium Bicarbonate -) 650 mg PO BID [facility] Last Admin: 04/23/16 10:33 Dose: Not Given Tramadol HCl (Ultram -) 50 mg PO Q8H PRN PRN Reason: PAIN Last Admin: 04/20/16 23:11 Dose: 50 mg Trazodone HCl (Desyrel -) 200 mg PO [facility] Last Admin: 04/22/16 21:13 Dose: 200 mg - Objective Vital Signs: Vital Signs Temperature 97.6 F 04/23/16 10:40 Pulse Rate 136 H 04/23/16 10:40 Respiratory Rate 22 04/23/16 10:40 Blood Pressure 146/88 04/23/16 10:40 O2 Sat by Pulse Oximetry (%) 100 04/22/16 22:00 Constitutional: Yes: No Distress, Calm Eyes: Yes: WNL HENT: Yes: WNL Neck: Yes: WNL, Supple, Trachea Midline Cardiovascular: Yes: Tachycardia, Pulse Irregular Respiratory: Yes: WNL, CTA Bilaterally Gastrointestinal: Yes: Soft, Abdomen, Obese Extremities: Yes: WNL Edema: No Labs: CBC, BMP 04/22/16 05:45 04/23/16 06:20 INR, PTT INR 1.43 (0.82-1.09) H 04/19/16 15:50 Assessment/Plan a/p: 60 m hx htn, hld, dm, cabg (04/2006), ESRD, afib, syst chf, here s/p fall 2/ 2 weakness and LE pain and found to have worsened creatinine now with plan for HD initiation. syst chf: -sob and orthopnea improved with iv lasix and HD -On po lasix 80 bid and cont HD per renal -echo here similar to 09/2015, shows mod reduced lvef -con't bb -stopped diltiazem here in light of cardiomyopathy. -Would consider adding ACEi/ARB now that on HD ESRD - renal following, now on HD htn: -continue current meds hld: -cont statin cad s/p cabg: -intermediate trop elevation with flat trend (in setting of severe renal dysfunction), nl CK --> not c/w acs, no anginal sxs. EKG without ischemic changes. -echo w/o sig change from prior -cont statin, bb, asa afib/flutter: -Encourage to take meds cont toprol, occasional rvr but rate mostly controlled. Monitor on tele, -has not been on AC in the past. cont home asa, plavix for now, but will need to readdress AC once anemia is evaluated (hgb in 6's here with need for prbcs) and procedures are completed.
--- NOTE | 2016-04-23 15:13 | PN ---
Physical Exam: SUBJECTIVE: Patient seen and examined and oob to chair. Had three-hour period this morning with vomiting and diarrhea which was self-limiting. Ate lunch with no difficulty. Still has not made a decision whether he wants HD, or PD, or any type of treatment at all. Angry that case management has asked him to make a decision regarding his care. Offered to provide counseling (psych/therapy/ spiritual) but patient declined. OBJECTIVE: Vital Signs Period Temp Pulse Resp BP Sys/Ledbetter Pulse Ox Last 24 Hr 97.6 F-98.1 F 70-136 18-22 111-146/63-88 100-100 GENERAL: The patient is awake, alert, and fully oriented, in no acute distress. HEAD: Normal with no signs of trauma. EYES: PERRL, extraocular movements intact, sclera anicteric, conjunctiva clear. No ptosis. LUNGS: Distant breath sounds. No wheezes, no crackles, no accessory muscle use. HEART: Regular rate and rhythm, S1, S2 without murmur, rub or gallop. ABDOMEN: Soft, nontender, nondistended, normoactive bowel sounds, no guarding, no rebound, no hepatosplenomegaly, no masses. EXTREMITIES: 2+ pulses, warm, well-perfused, no edema. NEUROLOGICAL: Cranial nerves II through XII grossly intact. Normal speech, gait not observed. Laboratory Results - last 24 hr 04/22/16 04/22/16 04/23/16 17:20 21:12 06:20 Sodium 137 Potassium 4.0 Chloride 96 L Carbon Dioxide 30 Anion Gap 11 BUN 74 H D Creatinine 7.4 H D POC Glucometer 134 128 Random Glucose 113 H Calcium 9.2 Phosphorus 5.1 H D Magnesium 2.0 Active Medications Generic Name Dose Route Start Last Admin Trade Name Freq PRN Reason Stop Dose Admin Acetaminophen 650 mg 04/18/16 13:53 Tylenol - PO Q6H PRN FEVER OR PAIN Aspirin 81 mg 04/19/16 10:00 04/23/16 10:32 Asa - PO Not Given DAILY MARY Atorvastatin Calcium 10 mg 04/18/16 22:00 04/22/16 21:13 Lipitor - PO 10 mg HS MARY Administration Clopidogrel Bisulfate 75 mg 04/19/16 10:00 04/23/16 10:33 Plavix - PO Not Given DAILY MARY Diphenhydramine HCl 25 mg 04/19/16 11:06 04/20/16 18:56 Benadryl - PO 25 mg Q6H PRN Administration FOR ITCHING Fenofibric Acid 45 mg 04/19/16 10:00 04/23/16 10:33 Trilipix - PO Not Given DAILY MARY Furosemide 80 mg 04/21/16 14:00 04/23/16 14:31 Lasix - PO Not Given BID@0600,1400 [facility] Hydroxyzine HCl 10 mg 04/21/16 12:00 04/23/16 12:10 Atarax - PO Not Given Q6HPO [facility] Insulin Aspart 1 vial 04/18/16 16:30 04/23/16 12:30 Novolog Vial Sliding Scale - SQ Not Given ACHS [facility] Protocol Lactic Acid 1 applic 04/20/16 23:51 04/21/16 00:05 Lac-Hydrin 12 TP 1 applic BID PRN Administration FOR ITCHING Metoprolol Succinate 100 mg 04/21/16 22:00 04/23/16 10:33 Toprol Xl - PO Not Given BID [facility] Metoprolol Tartrate 5 mg 04/20/16 10:02 Lopressor Injection - IVPUSH Q4H PRN TACHYCARDIA Multivitamins/Minerals/Vitamin C 1 tab 04/19/16 10:00 04/23/16 10:33 Tab-A-Vit - PO Not Given DAILY [facility] Ondansetron HCl 4 mg 04/18/16 13:53 Zofran Injection IVPB Q6H PRN NAUSEA Potassium Chloride 40 meq 04/21/16 10:00 04/23/16 10:33 K-Dur - PO Not Given DAILY [facility] Sertraline HCl 50 mg 04/18/16 22:00 04/22/16 21:13 Zoloft - PO 50 mg HS MARY Administration Sevelamer Carbonate 1,600 mg 04/19/16 11:09 04/23/16 12:10 Renvela - PO Not Given TIDCM MARY Sodium Bicarbonate 650 mg 04/18/16 22:00 04/23/16 10:33 Sodium Bicarbonate - PO Not Given BID MARY Tramadol HCl 50 mg 04/19/16 03:22 04/20/16 23:11 Ultram - PO 50 mg Q8H PRN Administration PAIN Trazodone HCl 200 mg 04/18/16 22:00 04/22/16 21:13 Desyrel - PO 200 mg HS MARY Administration ASSESSMENT/PLAN 60 year-old man with a PMH of HTN, HLD, CAD s/p CABG x 4 (2006), systolic HF, paroxysmal afib, NIDDM, and CKD Stage 5. Admitted for LE pain and weakness, worsening renal function, now s/p initiation of HD. ESRD on HD --continue Lasix, sodium bicarb --HD tomorrow --outpatient HD unit placement pending Acute on chronic systolic heart failure --04/18/16 echo: LV moderately reduced, moderate anterior wall hypokinesis, mid anteroseptal wall moderate hypokinesis, basal anteroseptal wall moderate hypokinesis; RV normal; severe LAE, moderate AUGUSTINA; mild MR; moderate TR; mild pHTN; cannot r/o --Lasix IV 80mg BID --HD for fluid balance --continue metoprolol --strict I&Os, daily weights Hyperphosphatemia Pruritis --thigh muscle pain/contractions discussed with Dr. Weiss, he is concerned for calciphylaxis given uremia/high Ca x Phos product --CT of LE confirmed soft tissue calcifications --continue sevelamer with goal phos <4.5 --d/c statin as possible contributing factor --Atarax for itching Paroxysmal afib/aflutter --continue metoprolol --continue ASA, plavix for now until procedures completed, then need to address long-term anti-coagulation Hypertension --BP well-controlled --continue metoprolol, hydralazine, isosorbide CAD s/p CABG x 4 --troponins mildly elevated but flat in setting of severe renal disease, normal CK; not consistent with ACS --continue metoprolol, Lipitor, ASA, Plavix Hyperlipidemia --continue Lipitor Anemia of chronic disease --transfused 1 unit PRBC 04/17 --h/h stable --stool occult negative NIDDM --Novolog sliding scale coverage F/E/N Fluids: PO intake adequate Electrolytes: replete as indicated Nutrition: renal diabetic diet DVT prophylaxis: Hgb has been stable; start subq heparin; oob, ambulation Rehab PT eval Daily PT Dispo: continues to require inpatient care. Full Code. Visit type - Emergency Visit Emergency Visit: Yes ED Registration Date: 04/18/16 Care time: The patient presented to the Emergency Department on the above date and was hospitalized for further evaluation of their emergent condition. - New Patient This patient is new to me today: No - Critical Care Critical Care patient: No
[2016-04-23 15:37] LABS: URINE APPEARANCE HAZY; URINE BILIRUBIN NEGATIVE (NEGATIVE); URINE BLOOD 2 (NEGATIVE); URINE COLOR YELLOW; URINE GLUCOSE (UA) 1+ (NEGATIVE); URINE KETONE NEGATIVE (NEGATIVE)
[2016-04-23 15:38] LABS: URINE LEUK ESTERASE 2+ (NEGATIVE); URINE NITRITE NEGATIVE (NEGATIVE); URINE PROTEIN 2+ (NEGATIVE); URINE UROBILINOGEN NORMAL E.U./dl (0.2-1.0)
[2016-04-23 15:47] LABS: URINE BACTERIA FEW /hpf (NONE SEEN)
[2016-04-23] MEDS ORDERED: traZODone HCL 50 MG TABLET (FP) ONE (21:43)
[2016-04-23] MEDS: SERTRALINE HCL 50 MG TABLET (FP) PO SCH (22:03)
[2016-04-23] MEDS: ATORVASTATIN CA 10 MG TABLET (FP) PO SCH (22:03)
[2016-04-23] MEDS: traZODone HCL 100 MG TABLET (FP) PO SCH (22:03)
[2016-04-23] MEDS: HEPARIN NA (PORCINE) 5,000 UNITS/ML 1ML VIAL SQ SCH (22:04)
[2016-04-24] MEDS: INSULIN SLIDING SCALE (NOVOLOG) 1 VIAL SQ SCH (06:58)
[2016-04-24] MEDS: FUROSEMIDE 40 MG TABLET (FP) PO SCH ×2 (06:58→14:41)
[2016-04-24] MEDS: hydrOXYzine HCL 10 MG TABLET PO SCH ×3 (06:58→18:29)
[2016-04-24] MEDS ORDERED: EPOETIN ALFA 10,000 UNIT/1 ML VIAL IVPUSH ONE (08:00)
[2016-04-24] MEDS: SEVELAMER CARBONATE 800 MG TAB (FP) PO SCH ×3 (08:00→18:26)
[2016-04-24 08:34] LABS: MCH 29.2 pg (25.7-33.7); MCHC 32.5 g/dl (32.0-35.9); MEAN CELL VOLUME 89.9 fl (80-96); MEAN PLT VOLUME 8.2 fl (7.5-11.1); PLATELET COUNT 248 K/MM3 (134-434); RDW 14.3 % (11.9-15.9); WHITE BLOOD COUNT 12.9 K/mm3 (4.0-10.0)
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
[2016-04-24 09:03] LABS: ALBUMIN 3.2 g/dl (3.4-5.0); BILIRUBIN,TOTAL 0.4 mg/dL (0.2-1.0); CALCIUM 8.8 mg/dL (8.5-10.1); PHOSPHOROUS 5.3 mg/dL (2.5-4.9); TOT PROT 6.5 g/dl (6.4-8.2)
[2016-04-24 09:19] LABS: CREATININE 8.1 mg/dL (0.7-1.3)
--- NOTE | 2016-04-24 10:35 | PN ---
Progress Note (short form) - Note Progress Note: Renal Follow up for CKD Stage 5 ->ESRD Pt seen and examined during dialysis BP stable Goal UF is 3L pt with N/V yesterday morning no sob or chest pain Vital Signs Temperature 98.3 F 04/24/16 06:00 Pulse Rate 105 H 04/24/16 09:40 Respiratory Rate 18 04/24/16 09:40 Blood Pressure 135/75 04/24/16 09:40 O2 Sat by Pulse Oximetry (%) 98 04/23/16 21:00 Intake & Output 04/21/16 04/22/16 04/23/16 04/24/16 23:59 23:59 23:59 23:59 Intake Total 120 320 100 120 Output Total 450 110 600 480 Balance -330 210 -500 -360 Weight 216 lb 12.8 oz 211 lb 215 lb 214 lb 9.6 oz Gen: awake and alert HEENT: NC/AT, MMM, No JVD CVS: RRR, No M/R Lungs: CTA, no rales or wheeze Abd: soft NT/ND Ext: 2+ edema extending up to upper thigh. Muscle wasting Neuro: AAOX3, no focal defects. + mild asterixis. CBC, BMP 04/24/16 07:45 04/24/16 07:45 Current Medications Acetaminophen (Tylenol -) 650 mg PO Q6H PRN PRN Reason: FEVER OR PAIN Aspirin (Asa -) 81 mg PO DAILY [facility] Last Admin: 04/23/16 10:32 Dose: Not Given Atorvastatin Calcium (Lipitor -) 10 mg PO HS [facility] Last Admin: 04/23/16 22:03 Dose: 10 mg Clopidogrel Bisulfate (Plavix -) 75 mg PO DAILY [facility] Last Admin: 04/23/16 10:33 Dose: Not Given Diphenhydramine HCl (Benadryl -) 25 mg PO Q6H PRN PRN Reason: FOR ITCHING Last Admin: 04/20/16 18:56 Dose: 25 mg Fenofibric Acid (Trilipix -) 45 mg PO DAILY [facility] Last Admin: 04/23/16 10:33 Dose: Not Given Furosemide (Lasix -) 80 mg PO BID@0600,1400 [facility] Last Admin: 04/24/16 06:58 Dose: 80 mg Heparin Sodium (Porcine) (Heparin -) 5,000 unit SQ BID [facility] Last Admin: 04/23/16 22:04 Dose: 5,000 unit Hydroxyzine HCl (Atarax -) 10 mg PO Q6HPO [facility] Last Admin: 04/24/16 06:58 Dose: 10 mg Insulin Aspart (Novolog Vial Sliding Scale -) 1 vial SQ ACBK MARY PRN Reason: Protocol Last Admin: 04/24/16 06:58 Dose: Not Given Lactic Acid (Lac-Hydrin 12) 1 applic TP BID PRN PRN Reason: FOR ITCHING Last Admin: 04/21/16 00:05 Dose: 1 applic Metoprolol Succinate (Toprol Xl -) 100 mg PO BID [facility] Last Admin: 04/23/16 22:03 Dose: 100 mg Metoprolol Tartrate (Lopressor Injection -) 5 mg IVPUSH Q4H PRN PRN Reason: TACHYCARDIA Multivitamins/Minerals/Vitamin C (Tab-A-Vit -) 1 tab PO DAILY [facility] Last Admin: 04/23/16 10:33 Dose: Not Given Ondansetron HCl (Zofran Injection) 4 mg IVPB Q6H PRN PRN Reason: NAUSEA Potassium Chloride (K-Dur -) 40 meq PO DAILY [facility] Last Admin: 04/23/16 10:33 Dose: Not Given Sertraline HCl (Zoloft -) 50 mg PO [facility] Last Admin: 04/23/16 22:03 Dose: 50 mg Sevelamer Carbonate (Renvela -) 1,600 mg PO TIDCM [facility] Last Admin: 04/23/16 18:10 Dose: 1,600 mg Sodium Bicarbonate (Sodium Bicarbonate -) 650 mg PO BID [facility] Last Admin: 04/23/16 22:01 Dose: 650 mg Trazodone HCl (Desyrel -) 200 mg PO HS [facility] Last Admin: 04/23/16 22:03 Dose: 200 mg Valsartan (Diovan -) 80 mg PO BID [facility] A/P 60 year old gentleman with PMhx of CKD Stage 5 with nephrotic range proteinuria , CAD s/p CABG, DM Type 2, Depression, CHF who presented to [place] ED s/p fall with LE pain and swelling and found to have BUN/Cr of 141/10 (baseline Cr ~ 6). #Progressive CKD Stage 5 now ESRD on HD Currently getting HD UF 3L outpatient Hd unit placement Will give KCL today as pt K was 3.6 before dialysis #LE edema/CHF Continue Oral lasix UF with HD as tolerated #Tender lesions in LE CT of LE confirmed soft tissue calcifications. Continue Phos binder with goal phos < 4.5 Avoid Vit D supplementation PTH is acceptable for level of CKD ? role for sodium thiosulfate w/o ulcerations advised pt to avoid itching that area as he is at risk of ulcerations #Puritis related to hyperphosphatemia Give Atarax want to prevent itching of lesions to prevent skin breakage and ulcer formation Won Weiss DO
[2016-04-24] MEDS: CLOPIDOGREL BISULFATE 75 MG TABLET (FP) PO SCH (12:00)
[2016-04-24] MEDS ORDERED: PT OWN MED DRAWER 7, Y5N ONE (12:31)
[2016-04-24] MEDS: ASPIRIN 81 MG CHEWABLE TABLETS PO SCH (12:36)
[2016-04-24] MEDS: METOPROLOL SUCCINATE 100 MG TAB.SR.24H (FP) PO SCH ×2 (12:36→21:33)
[2016-04-24] MEDS: SODIUM BICARBONATE 650 MG TABLET PO SCH ×2 (12:36→21:32)
[2016-04-24] MEDS: POTASSIUM CHLORIDE TABS 20 MEQ TABLET.ER (FP) PO SCH (12:36)
[2016-04-24] MEDS: MULTIVITAMINS (DAILY MVI) TABLET (FP) PO SCH (12:36)
[2016-04-24] MEDS: VALSARTAN 80 MG TABLET (UD) PO SCH ×2 (12:36→21:32)
[2016-04-24] MEDS: FENOFIBRIC ACID 45 MG CAP PO SCH (12:37)
[2016-04-24] MEDS: HEPARIN NA (PORCINE) 5,000 UNITS/ML 1ML VIAL SQ SCH ×2 (12:41→21:33)
[2016-04-24 12:42] LABS: CREATININE 3.5 mg/dL (0.7-1.3)
--- NOTE | 2016-04-24 13:43 | PN ---
Physical Exam: SUBJECTIVE: Patient seen and examined oob to chair. [place] a little dizzy after HD today, better now. Normal BM. No further diarrhea. OBJECTIVE: Vital Signs Period Temp Pulse Resp BP Sys/Ledbetter Pulse Ox Last 24 Hr 97.4 F-98.3 F 70-105 18-20 105-139/58-75 98-98 GENERAL: The patient is awake, alert, and fully oriented, in no acute distress. HEAD: Normal with no signs of trauma. EYES: PERRL, extraocular movements intact, sclera anicteric, conjunctiva clear. No ptosis. LUNGS: CTA. No wheezes, no crackles, no accessory muscle use. HEART: Regular rate and rhythm, S1, S2 without murmur, rub or gallop. ABDOMEN: Soft, nontender, nondistended, normoactive bowel sounds, no guarding, no rebound, no hepatosplenomegaly, no masses. EXTREMITIES: 2+ pulses, warm, well-perfused, no edema. NEUROLOGICAL: Cranial nerves II through XII grossly intact. Normal speech, gait not observed. Laboratory Results - last 24 hr 04/23/16 04/24/16 04/24/16 12:50 06:56 07:45 WBC 12.9 H RBC 3.27 L Hgb 9.5 L Hct 29.4 L MCV 89.9 MCHC 32.5 RDW 14.3 Plt Count 248 MPV 8.2 Sodium Potassium Chloride Carbon Dioxide Anion Gap BUN Creatinine Creat Clearance w eGFR POC Glucometer 112 Random Glucose Calcium Phosphorus Total Bilirubin AST ALT Alkaline Phosphatase Total Protein Albumin Urine Color Yellow Urine Appearance Hazy Urine pH 5.0 Ur Specific [place] 1.011 Urine Protein 2+ H Urine Glucose (UA) 1+ H Urine Ketones Negative Urine Blood 2 H Urine Nitrite Negative Urine Bilirubin Negative Urine Urobilinogen Normal Ur Leukocyte Esterase 2+ H Urine RBC 10-20 Urine WBC 5-8 Ur Epithelial Cells Few Urine Bacteria Few Granular Casts 4-5 04/24/16 04/24/16 07:45 11:00 WBC RBC Hgb Hct MCV MCHC RDW Plt Count MPV Sodium 136 Potassium 3.6 Chloride 96 L Carbon Dioxide 25 Anion Gap 15 BUN 87 H 31 H D Creatinine 8.1 H* 3.5 H D Creat Clearance w eGFR 6.77 POC Glucometer Random Glucose 121 H Calcium 8.8 Phosphorus 5.3 H Total Bilirubin 0.4 AST 13 L D ALT 14 Alkaline Phosphatase 55 D Total Protein 6.5 Albumin 3.2 L Urine Color Urine Appearance Urine pH Ur Specific [place] Urine Protein Urine Glucose (UA) Urine Ketones Urine Blood Urine Nitrite Urine Bilirubin Urine Urobilinogen Ur Leukocyte Esterase Urine RBC Urine WBC Ur Epithelial Cells Urine Bacteria Granular Casts Active Medications Generic Name Dose Route Start Last Admin Trade Name Freq PRN Reason Stop Dose Admin Acetaminophen 650 mg 04/18/16 13:53 Tylenol - PO Q6H PRN FEVER OR PAIN Aspirin 81 mg 04/19/16 10:00 04/24/16 12:36 Asa - PO 81 mg DAILY MARY Administration Atorvastatin Calcium 10 mg 04/18/16 22:00 04/23/16 22:03 Lipitor - PO 10 mg HS MARY Administration Diphenhydramine HCl 25 mg 04/19/16 11:06 04/20/16 18:56 Benadryl - PO 25 mg Q6H PRN Administration FOR ITCHING Fenofibric Acid 45 mg 04/19/16 10:00 04/24/16 12:37 Trilipix - PO 45 mg DAILY MARY Administration Furosemide 80 mg 04/21/16 14:00 04/24/16 06:58 Lasix - PO 80 mg BID@0600,1400 MARY Administration Heparin Sodium (Porcine) 5,000 unit 04/23/16 22:00 04/24/16 12:41 Heparin - SQ 5,000 unit BID MARY Administration Hydroxyzine HCl 10 mg 04/21/16 12:00 04/24/16 12:37 Atarax - PO 10 mg Q6HPO MARY Administration Insulin Aspart 1 vial 04/24/16 07:00 04/24/16 06:58 Novolog Vial Sliding Scale - SQ Not Given ACBK [facility] Protocol Lactic Acid 1 applic 04/20/16 23:51 04/21/16 00:05 Lac-Hydrin 12 TP 1 applic BID PRN Administration FOR ITCHING Metoprolol Succinate 100 mg 04/21/16 22:00 04/24/16 12:36 Toprol Xl - PO 100 mg BID MARY Administration Metoprolol Tartrate 5 mg 04/20/16 10:02 Lopressor Injection - IVPUSH Q4H PRN TACHYCARDIA Multivitamins/Minerals/Vitamin C 1 tab 04/19/16 10:00 04/24/16 12:36 Tab-A-Vit - PO 1 tab DAILY MARY Administration Ondansetron HCl 4 mg 04/18/16 13:53 Zofran Injection IVPB Q6H PRN NAUSEA Potassium Chloride 40 meq 04/21/16 10:00 04/24/16 12:36 K-Dur - PO 40 meq DAILY MARY Administration Sertraline HCl 50 mg 04/18/16 22:00 04/23/16 22:03 Zoloft - PO 50 mg HS MARY Administration Sevelamer Carbonate 1,600 mg 04/19/16 11:09 04/24/16 12:36 Renvela - PO 1,600 mg TIDCM MARY Administration Sodium Bicarbonate 650 mg 04/18/16 22:00 04/24/16 12:36 Sodium Bicarbonate - PO 650 mg BID MARY Administration Trazodone HCl 200 mg 04/18/16 22:00 04/23/16 22:03 Desyrel - PO 200 mg HS MARY Administration Valsartan 80 mg 04/24/16 10:00 04/24/16 12:36 Diovan - PO 80 mg BID MARY Administration ASSESSMENT/PLAN 60 year-old man with a PMH of HTN, HLD, CAD s/p CABG x 4 (2006), systolic HF, paroxysmal afib, NIDDM, and CKD Stage 5. Admitted for LE pain and weakness, worsening renal function, now s/p initiation of HD. ESRD on HD --HD today, 3kg removed --outpatient HD unit placement pending Acute on chronic systolic heart failure --04/18/16 echo: LV moderately reduced, moderate anterior wall hypokinesis, mid anteroseptal wall moderate hypokinesis, basal anteroseptal wall moderate hypokinesis; RV normal; severe LAE, moderate AUGUSTINA; mild MR; moderate TR; mild pHTN; cannot r/o --Lasix PO 80mg BID --HD for fluid balance --continue metoprolol --start valsartan 80mg BID --strict I&Os, daily weights Hyperphosphatemia Pruritis --thigh muscle pain/contractions discussed with Dr. Weiss, he is concerned for calciphylaxis given uremia/high Ca x Phos product --CT of LE confirmed soft tissue calcifications --continue sevelamer with goal phos <4.5 --Atarax for itching Paroxysmal afib/aflutter --continue metoprolol --Dr. Thomas discussed long-term anticoagulation with patient; plan is to stop plavix, continue ASA, and get heme consult prior to starting Eliquis for tisk-stratification Hypertension --BP well-controlled --continue metoprolol, hydralazine, isosorbide, Valsartan CAD s/p CABG x 4 --troponins mildly elevated but flat in setting of severe renal disease, normal CK; not consistent with ACS --continue metoprolol, Lipitor, ASA Hyperlipidemia --continue Lipitor Anemia of chronic disease --transfused 1 unit PRBC 04/17 --h/h stable --stool occult negative NIDDM --Novolog sliding scale coverage F/E/N Fluids: PO intake adequate Electrolytes: replete as indicated Nutrition: renal diabetic diet DVT prophylaxis: Hgb has been stable; start subq heparin; oob, ambulation Rehab PT eval Daily PT Dispo: continues to require inpatient care. Full Code. Visit type - Emergency Visit Emergency Visit: Yes ED Registration Date: 04/18/16 Care time: The patient presented to the Emergency Department on the above date and was hospitalized for further evaluation of their emergent condition. - New Patient This patient is new to me today: No - Critical Care Critical Care patient: No
[2016-04-24] MEDS ORDERED: traZODone HCL 50 MG TABLET (FP) ONE (21:29)
[2016-04-24] MEDS: SERTRALINE HCL 50 MG TABLET (FP) PO SCH (21:32)
[2016-04-24] MEDS: traZODone HCL 100 MG TABLET (FP) PO SCH (21:33)
[2016-04-24] MEDS ORDERED: ATORVASTATIN CA 10 MG TABLET (FP) PO SCH (22:00)
[2016-04-24] MEDS ORDERED: ROSUVASTATIN CA 20 MG TABLET (FP) PO SCH (22:00)
--- NOTE | 2016-04-24 22:25 | CONSULT ---
Consult - text type - Consultation Consultation Note: PAtient seen and examined full consult to follow This is a 60 year old gentleman with PMhx of CKD with nephrotic range proteinuria, CAD s/p CABG, DM Type 2, Depression, CHF who presented to [place] ED s/p fall with LE pain and swelling and found to have BUN/Cr of 141/10 ( baseline Cr ~6). Pt has known about advanced CKD in the past and and been refusing dialysis. HE got initiated on dialysis. We have been consulted for work up of anemia, prior to starting a/c for afib He is very reluctant to undergo any invasive testing for anemia Reports that he wants to be conservative Denies any side effects PMhx: As above Allergies: As listed in EMR Family Hx: NC Social Hx: Former smoker ROS: As per HPI all other pertinent ros negative Home Meds: Home Medications Medication Instructions Recorded Aspirin [ASA -] 81 mg PO DAILY 09/21/15 Carvedilol 25 mg PO BID 09/21/15 Cholecalciferol (Vitamin D3) 1,000 unit PO DAILY 09/21/15 [Vitamin D3] Clopidogrel Bisulfate [Clopidogrel] 75 mg PO DAILY 09/21/15 Fenofibrate 48 mg PO DAILY 09/21/15 Furosemide [Lasix -] 80 mg PO BID 09/21/15 Hydralazine HCl [Apresoline -] 25 mg PO BID 09/21/15 Isosorbide Dinitrate [Isordil -] 10 mg PO BID 09/21/15 Lovastatin [Altoprev] 40 mg PO DAILY 09/21/15 Multivitamins [Multivit ([facility] 1 tab PO DAILY 09/21/15 Formulary)] Sertraline HCl 50 mg PO HS 09/21/15 Trazodone HCl 200 mg PO HS 09/21/15 Diltiazem [Cardizem -] 30 mg PO TID #90 tablet 10/02/15 Sitagliptin Phosphate [Januvia] 25 mg PO DAILY #30 tablet 10/02/15 Tramadol HCl 50 mg PO Q8H PRN #15 tablet MDD 3 10/02/15 Last Vital Signs Temp Pulse Resp BP Pulse Ox 98.1 F 81 18 116/54 95 04/25/16 15:50 04/25/16 18:30 04/25/16 18:30 04/25/16 18:30 04/25/16 09:00 Gen: awake and alert , OBESE HEENT: NC/AT, CVS: RRR, No M/R. CABG scar Lungs: CTA, no rales or wheeze Abd: soft NT/ND, obese Ext: 2+ edema extending up to upper thigh. Muscle wasting Neuro: AAOX3, no focal defects. Abnormal Lab Results 04/23/16 04/25/16 11:52 10:00 Hct 32.7 L Free [place] LC, Quant 144.16 H Free Lambda LC, Quant 69.63 H Free [place]/Lambda Ratio 2.07 H Influenza Type A Ab 1:64 H Influenza Type B Ab 1:32 H A/P 60 y/o patient with DM, HTN, CAD, s/p CABG,CHF,afib , ESRD, just started dialysis We have been consulted for anemia w/u prior to initiation of anticoagulation Anemia ---multifactorial, chronic, normocytic anemia of chronic disease due to CKD//CHF +/- gi losses, although stool occult is negative will check iron studies/B12/folate/TSH/fT4/protein studies Await iron studies to decide on iron/procrit patient refusing gi w/u , will discuss with cardiology
[2016-04-25] MEDS ORDERED: PT OWN MED DRAWER 7, Y5N ONE ×2 (00:05→10:02)
[2016-04-25] MEDS: hydrOXYzine HCL 10 MG TABLET PO SCH ×5 (00:12→17:21)
[2016-04-25] MEDS: FUROSEMIDE 40 MG TABLET (FP) PO SCH ×2 (05:51→15:00)
[2016-04-25] MEDS: INSULIN SLIDING SCALE (NOVOLOG) 1 VIAL SQ SCH (06:11)
[2016-04-25 06:57] LABS: EOSINOPHIL 4.1 % (0-4.5); MEAN CELL VOLUME 90.5 fl (80-96); MEAN PLT VOLUME 8.4 fl (7.5-11.1); NEUTROPHILS 65.1 % (42.8-82.8); PLATELET COUNT 240 K/MM3 (134-434); RDW 14.6 % (11.9-15.9); WHITE BLOOD COUNT 12.4 K/mm3 (4.0-10.0)
[2016-04-25 07:14] LABS: CREATININE 6.6 mg/dL (0.7-1.3); MAGNESIUM 1.9 mg/dL (1.8-2.4); PHOSPHOROUS 4.5 mg/dL (2.5-4.9)
[2016-04-25] MEDS: SODIUM BICARBONATE 650 MG TABLET PO SCH (10:23)
[2016-04-25] MEDS: FENOFIBRIC ACID 45 MG CAP PO SCH (10:23)
[2016-04-25] MEDS: METOPROLOL SUCCINATE 100 MG TAB.SR.24H (FP) PO SCH (10:23)
[2016-04-25] MEDS: VALSARTAN 80 MG TABLET (UD) PO SCH (10:23)
[2016-04-25] MEDS: MULTIVITAMINS (DAILY MVI) TABLET (FP) PO SCH (10:23)
[2016-04-25] MEDS: ASPIRIN 81 MG CHEWABLE TABLETS PO SCH (10:23)
[2016-04-25] MEDS: SEVELAMER CARBONATE 800 MG TAB (FP) PO SCH ×3 (10:24→16:54)
[2016-04-25] MEDS: POTASSIUM CHLORIDE TABS 20 MEQ TABLET.ER (FP) PO SCH (10:24)
[2016-04-25] MEDS: HEPARIN NA (PORCINE) 5,000 UNITS/ML 1ML VIAL SQ SCH (10:26)
[2016-04-25 10:45] LABS: FERRITIN 215.267 ng/ml (16.4-293.9)
--- NOTE | 2016-04-25 13:08 | PN ---
Progress Note (short form) - Note Progress Note: Chief Complaint: chf, afib History of Present Illness: converted to sr this morning. Feels well. No dizziness today. no cp, palps, sob. ex-cigs Current Medications Acetaminophen (Tylenol -) 650 mg PO Q6H PRN PRN Reason: FEVER OR PAIN Aspirin (Asa -) 81 mg PO DAILY [facility] Last Admin: 04/25/16 10:23 Dose: 81 mg Atorvastatin Calcium (Lipitor -) 10 mg PO HS [facility] Last Admin: 04/24/16 21:32 Dose: 10 mg Diphenhydramine HCl (Benadryl -) 25 mg PO Q6H PRN PRN Reason: FOR ITCHING Last Admin: 04/20/16 18:56 Dose: 25 mg Fenofibric Acid (Trilipix -) 45 mg PO DAILY [facility] Last Admin: 04/25/16 10:23 Dose: 45 mg Furosemide (Lasix -) 80 mg PO BID@0600,1400 [facility] Last Admin: 04/25/16 05:51 Dose: 80 mg Heparin Sodium (Porcine) (Heparin -) 5,000 unit SQ BID [facility] Last Admin: 04/25/16 10:26 Dose: 5,000 unit Hydroxyzine HCl (Atarax -) 10 mg PO Q6HPO [facility] Last Admin: 04/25/16 11:19 Dose: 10 mg Insulin Aspart (Novolog Vial Sliding Scale -) 1 vial SQ ACBK [facility] PRN Reason: Protocol Last Admin: 04/25/16 06:11 Dose: Not Given Lactic Acid (Lac-Hydrin 12) 1 applic TP BID PRN PRN Reason: FOR ITCHING Last Admin: 04/21/16 00:05 Dose: 1 applic Metoprolol Succinate (Toprol Xl -) 100 mg PO BID [facility] Last Admin: 04/25/16 10:23 Dose: 100 mg Metoprolol Tartrate (Lopressor Injection -) 5 mg IVPUSH Q4H PRN PRN Reason: TACHYCARDIA Multivitamins/Minerals/Vitamin C (Tab-A-Vit -) 1 tab PO DAILY [facility] Last Admin: 04/25/16 10:23 Dose: 1 tab Ondansetron HCl (Zofran Injection) 4 mg IVPB Q6H PRN PRN Reason: NAUSEA Sertraline HCl (Zoloft -) 50 mg PO [facility] Last Admin: 04/24/16 21:32 Dose: 50 mg Sevelamer Carbonate (Renvela -) 1,600 mg PO TIDCM [facility] Last Admin: 04/25/16 12:46 Dose: 1,600 mg Sodium Bicarbonate (Sodium Bicarbonate -) 650 mg PO BID [facility] Last Admin: 04/25/16 10:23 Dose: 650 mg Trazodone HCl (Desyrel -) 200 mg PO HS [facility] Last Admin: 04/24/16 21:33 Dose: 200 mg Valsartan (Diovan -) 80 mg PO BID [facility] Last Admin: 04/25/16 10:23 Dose: 80 mg Vital Signs - 24 hr 04/24/16 04/24/16 04/24/16 14:25 16:50 21:00 Temperature 97.3 F L 98.2 F Pulse Rate 79 76 Respiratory 16 18 18 Rate Blood Pressure 107/41 108/47 O2 Sat by Pulse 96 Oximetry (%) 04/25/16 04/25/16 04/25/16 02:13 06:00 09:00 Temperature 97.6 F 97.4 F L Pulse Rate 90 83 Respiratory 18 18 Rate Blood Pressure 101/41 113/60 O2 Sat by Pulse 95 Oximetry (%) 04/25/16 10:00 Temperature 97.4 F L Pulse Rate 73 Respiratory 18 Rate Blood Pressure 117/52 O2 Sat by Pulse Oximetry (%) Intake & Output 04/23/16 04/24/16 04/25/16 04/26/16 07:59 07:59 07:59 07:59 Intake Total 363 884 7673 370 Output Total 200 930 200 Balance 0 -710 900 370 Weight 215 lb 214 lb 9.6 oz 210 lb 6.4 oz Constitutional: Yes: Well Nourished, No Distress, Calm Eyes: No: Sclera Icterus HENT: No: Nasal Congestion Cardiovascular: Yes: Pulse Irregular, S1, S2, Other (PMI non diplaced). No: Gallop, Murmur Respiratory: Yes: CTA Bilaterally. No: Accessory Muscle Use, Rales, Wheezes Gastrointestinal: Yes: Normal Bowel Sounds, Soft. No: Tenderness Musculoskeletal: Yes: Other (No kyphosis) Extremities: No: Cold Edema: No Integumentary: No: Jaundice Neurological: Yes: Alert, Oriented (x3) Psychiatric: No: Agitated Labs: CBC, BMP 04/25/16 05:35 Laboratory Tests 04/25/16 05:35 Magnesium 1.9 - ....Imaging EKG: Other (tele: AF/flutter, HRs good --> conversion to SR) Assessment/Plan a/p: 60 m hx htn, hld, dm, cabg (04/2006), ESRD, afib, syst chf, here s/p fall 2/ 2 weakness and LE pain and found to have worsened creatinine now with plan for HD initiation. acute syst chf: -sob and orthopnea improved with iv lasix and HD, though orthopnea persists -cont po lasix 80 bid and cont HD per renal--suspect his filling pressures are still somewhat elevated given ongoing orthopnea -echo here similar to 09/2015, shows mod reduced lvef -con't bb, arb (okd per renal) -stopped diltiazem here in light of cardiomyopathy. afib/flutter: -cont toprol, occasional rvr but rate mostly controlled. Converted to SR 04/25. -Dr. Barker d/'w pt CHADS VASC of 4, with approx 4%/year risk of stroke (though very low numerically in short-term) -advised him that data suggest risk of bleeding with ASA/plavix (and possibly ASA alone) is equivalent to with AC, and risk of bleeding on anti-PLT plus AC is the highest, with data suggesting no incremental anti-myocardial ischemic benefit in pts with stable CAD and no recent stents -he agrees to eliquis (approved in HD--5mg bid dose here). Per pmd, hematology has stated no contraindication to AC --> would start eliquis (dosing per renal) -can likely stop asa as well once on eliquis. Can discuss with Dr. Barker. -to f/u with dr. barker. - 04/25 converted to SR. con't metoprolol ESRD - renal following, now on HD htn: -(now runs on lower end) continue current meds hld: -cont statin cad s/p cabg: -intermediate-range trop elevation with flat trend (in setting of severe renal dysfunction), nl CK --> not c/w acs, no anginal sxs. EKG without ischemic changes. -echo w/o sig change from prior -cont statin, bb, asa anemia: -hgb 6's earlier, s/p PRBCs -counts stable since -guaiac negative -as disc'd
[2016-04-25] MEDS ORDERED: EPOETIN ALFA 10,000 UNIT/1 ML VIAL IVPUSH ONE (14:41)
--- NOTE | 2016-04-25 14:41 | PN ---
Progress Note (short form) - Note Progress Note: Renal Follow up for CKD Stage 5 ->ESRD Pt seen and examined at the bedside yesterdays events noted, pt with Afib with RVR now in SR continues to have tenderness in thighs sob is improved s/p dialysis yesterday with 3L UF Vital Signs Temperature 97.4 F L 04/25/16 10:00 Pulse Rate 73 04/25/16 10:00 Respiratory Rate 18 04/25/16 10:00 Blood Pressure 117/52 04/25/16 10:00 O2 Sat by Pulse Oximetry (%) 95 04/25/16 09:00 Intake & Output 04/22/16 04/23/16 04/24/16 04/25/16 23:59 23:59 23:59 23:59 Intake Total 223 862 1744 570 Output Total 110 600 680 Balance 210 -500 340 570 Weight 211 lb 215 lb 214 lb 9.6 oz 210 lb 6.4 oz Gen: awake and alert HEENT: NC/AT, MMM, No JVD CVS: RRR, No M/R Lungs: CTA, no rales or wheeze Abd: soft NT/ND Ext: 2+ edema extending up to upper thigh. Muscle wasting Neuro: AAOX3, no focal defects. + mild asterixis. CBC, BMP 04/25/16 05:35 Current Medications Acetaminophen (Tylenol -) 650 mg PO Q6H PRN PRN Reason: FEVER OR PAIN Aspirin (Asa -) 81 mg PO DAILY [facility] Last Admin: 04/25/16 10:23 Dose: 81 mg Atorvastatin Calcium (Lipitor -) 10 mg PO HS [facility] Last Admin: 04/24/16 21:32 Dose: 10 mg Diphenhydramine HCl (Benadryl -) 25 mg PO Q6H PRN PRN Reason: FOR ITCHING Last Admin: 04/20/16 18:56 Dose: 25 mg Fenofibric Acid (Trilipix -) 45 mg PO DAILY [facility] Last Admin: 04/25/16 10:23 Dose: 45 mg Furosemide (Lasix -) 80 mg PO BID@0600,1400 [facility] Last Admin: 04/25/16 05:51 Dose: 80 mg Heparin Sodium (Porcine) (Heparin -) 5,000 unit SQ BID [facility] Last Admin: 04/25/16 10:26 Dose: 5,000 unit Hydroxyzine HCl (Atarax -) 10 mg PO Q6HPO [facility] Last Admin: 04/25/16 11:19 Dose: 10 mg Insulin Aspart (Novolog Vial Sliding Scale -) 1 vial SQ ACBK [facility] PRN Reason: Protocol Last Admin: 04/25/16 06:11 Dose: Not Given Lactic Acid (Lac-Hydrin 12) 1 applic TP BID PRN PRN Reason: FOR ITCHING Last Admin: 04/21/16 00:05 Dose: 1 applic Metoprolol Succinate (Toprol Xl -) 100 mg PO BID [facility] Last Admin: 04/25/16 10:23 Dose: 100 mg Metoprolol Tartrate (Lopressor Injection -) 5 mg IVPUSH Q4H PRN PRN Reason: TACHYCARDIA Multivitamins/Minerals/Vitamin C (Tab-A-Vit -) 1 tab PO DAILY [facility] Last Admin: 04/25/16 10:23 Dose: 1 tab Ondansetron HCl (Zofran Injection) 4 mg IVPB Q6H PRN PRN Reason: NAUSEA Sertraline HCl (Zoloft -) 50 mg PO [facility] Last Admin: 04/24/16 21:32 Dose: 50 mg Sevelamer Carbonate (Renvela -) 1,600 mg PO TIDCM [facility] Last Admin: 04/25/16 12:46 Dose: 1,600 mg Sodium Bicarbonate (Sodium Bicarbonate -) 650 mg PO BID [facility] Last Admin: 04/25/16 10:23 Dose: 650 mg Trazodone HCl (Desyrel -) 200 mg PO [facility] Last Admin: 04/24/16 21:33 Dose: 200 mg Valsartan (Diovan -) 80 mg PO BID [facility] Last Admin: 04/25/16 10:23 Dose: 80 mg A/P 60 year old gentleman with PMhx of CKD Stage 5 with nephrotic range proteinuria , CAD s/p CABG, DM Type 2, Depression, CHF who presented to [place] ED s/p fall with LE pain and swelling and found to have BUN/Cr of 141/10 (baseline Cr ~ 6). #Progressive CKD Stage 5 now ESRD on HD No acute indication for dialysis today next dialysis planned for tomorrow outpatient HD unit placement pending #LE edema/CHF Continue Oral lasix, can reduce to once daily UF a tolerated with HD #Afib with RVR management as per Cardiology #Tender lesions in LE CT of LE confirmed soft tissue calcifications. Continue Phos binder with goal phos < 4.5 Avoid Vit D supplementation PTH is acceptable for level of CKD Pt reports that he does not want to go to rehab. Importance of rehab if needed discussed with the patient. Importance of continuing dialysis discussed with the patient. Discharge planning on going Won Weiss DO
--- NOTE | 2016-04-25 14:45 | PN ---
Physical Exam: SUBJECTIVE: Patient seen and examined OBJECTIVE: Vital Signs Period Temp Pulse Resp BP Sys/Ledbetter Pulse Ox Last 24 Hr 97.4 F-98.2 F 73-90 18-18 101-117/41-60 95-96 GENERAL: The patient is awake, alert, and fully oriented, in no acute distress. HEAD: Normal with no signs of trauma. EYES: PERRL, extraocular movements intact, sclera anicteric, conjunctiva clear. No ptosis. ENT: Ears normal, nares patent, oropharynx clear without exudates, moist mucous membranes. NECK: Trachea midline, full range of motion, supple. LUNGS: Breath sounds equal, clear to auscultation bilaterally, no wheezes, no crackles, no accessory muscle use. HEART: Regular rate and rhythm, S1, S2 without murmur, rub or gallop. ABDOMEN: Soft, nontender, nondistended, normoactive bowel sounds, no guarding, no rebound, no hepatosplenomegaly, no masses. EXTREMITIES: 2+ pulses, warm, well-perfused, no edema. NEUROLOGICAL: Cranial nerves II through XII grossly intact. Normal speech, gait not observed. PSYCH: Normal mood, normal affect. SKIN: Warm, dry, normal turgor, no rashes or lesions noted Laboratory Results - last 24 hr 04/24/16 04/24/16 04/25/16 15:00 17:06 05:35 WBC 12.4 H RBC 3.42 L Hgb 9.9 L Hct 30.9 L MCV 90.5 MCHC 32.0 RDW 14.6 Plt Count 240 MPV 8.4 Neutrophils % 65.1 Lymphocytes % 18.3 D Monocytes % 11.5 H Eosinophils % 4.1 Basophils % 1.0 ESR Sodium Potassium Chloride Carbon Dioxide Anion Gap BUN Creatinine POC Glucometer 101 Random Glucose Calcium Phosphorus Magnesium Ferritin C-Reactive Protein Vitamin B12 Stool Occult Blood Negative 04/25/16 04/25/16 04/25/16 05:35 05:39 10:00 WBC RBC Hgb Hct MCV MCHC RDW Plt Count MPV Neutrophils % Lymphocytes % Monocytes % Eosinophils % Basophils % ESR Sodium 140 Potassium 4.1 Chloride 97 L Carbon Dioxide 28 Anion Gap 15 BUN 60 H D Creatinine 6.6 H D POC Glucometer 75 Random Glucose 111 H Calcium 9.0 Phosphorus 4.5 Magnesium 1.9 Ferritin C-Reactive Protein 3.2 H Vitamin B12 Stool Occult Blood 04/25/16 04/25/16 10:00 10:00 WBC RBC Hgb Hct MCV MCHC RDW Plt Count MPV Neutrophils % Lymphocytes % Monocytes % Eosinophils % Basophils % ESR 64 H Sodium Potassium Chloride Carbon Dioxide Anion Gap BUN Creatinine POC Glucometer Random Glucose Calcium Phosphorus Magnesium Ferritin 215.267 C-Reactive Protein Vitamin B12 827 Stool Occult Blood Active Medications Generic Name Dose Route Start Last Admin Trade Name Freq PRN Reason Stop Dose Admin Acetaminophen 650 mg 04/18/16 13:53 Tylenol - PO Q6H PRN FEVER OR PAIN Aspirin 81 mg 04/19/16 10:00 04/25/16 10:23 Asa - PO 81 mg DAILY MARY Administration Atorvastatin Calcium 10 mg 04/24/16 22:00 04/24/16 21:32 Lipitor - PO 10 mg HS MARY Administration Diphenhydramine HCl 25 mg 04/19/16 11:06 04/20/16 18:56 Benadryl - PO 25 mg Q6H PRN Administration FOR ITCHING Epoetin Campos 10,000 units 04/25/16 14:41 Epogen - IVPUSH 04/25/16 14:42 ONCE ONE Fenofibric Acid 45 mg 04/19/16 10:00 04/25/16 10:23 Trilipix - PO 45 mg DAILY MARY Administration Furosemide 80 mg 04/21/16 14:00 04/25/16 05:51 Lasix - PO 80 mg BID@0600,1400 MARY Administration Heparin Sodium (Porcine) 5,000 unit 04/23/16 22:00 04/25/16 10:26 Heparin - SQ 5,000 unit BID MARY Administration Hydroxyzine HCl 10 mg 04/21/16 12:00 04/25/16 11:19 Atarax - PO 10 mg Q6HPO MARY Administration Insulin Aspart 1 vial 04/24/16 07:00 04/25/16 06:11 Novolog Vial Sliding Scale - SQ Not Given [facility] Protocol Lactic Acid 1 applic 04/20/16 23:51 04/21/16 00:05 Lac-Hydrin 12 TP 1 applic BID PRN Administration FOR ITCHING Metoprolol Succinate 100 mg 04/21/16 22:00 04/25/16 10:23 Toprol Xl - PO 100 mg BID MARY Administration Metoprolol Tartrate 5 mg 04/20/16 10:02 Lopressor Injection - IVPUSH Q4H PRN TACHYCARDIA Multivitamins/Minerals/Vitamin C 1 tab 04/19/16 10:00 04/25/16 10:23 Tab-A-Vit - PO 1 tab DAILY MARY Administration Ondansetron HCl 4 mg 04/18/16 13:53 Zofran Injection IVPB Q6H PRN NAUSEA Sertraline HCl 50 mg 04/18/16 22:00 04/24/16 21:32 Zoloft - PO 50 mg HS MARY Administration Sevelamer Carbonate 1,600 mg 04/19/16 11:09 04/25/16 12:46 Renvela - PO 1,600 mg TIDCM MARY Administration Sodium Bicarbonate 650 mg 04/18/16 22:00 04/25/16 10:23 Sodium Bicarbonate - PO 650 mg BID MARY Administration Trazodone HCl 200 mg 04/18/16 22:00 04/24/16 21:33 Desyrel - PO 200 mg HS MARY Administration Valsartan 80 mg 04/24/16 10:00 04/25/16 10:23 Diovan - PO 80 mg BID MARY Administration ASSESSMENT/PLAN:
--- NOTE | 2016-04-25 14:49 | DS ---
Physical Exam: SUBJECTIVE: Patient seen and examined OBJECTIVE: Vital Signs Period Temp Pulse Resp BP Sys/Ledbetter Pulse Ox Last 24 Hr 97.4 F-98.2 F 73-90 18-18 101-117/41-60 95-96 PHYSICAL EXAM GENERAL: The patient is awake, alert, and fully oriented, in no acute distress. HEAD: Normal with no signs of trauma. EYES: PERRL, extraocular movements intact, sclera anicteric, conjunctiva clear. No ptosis. LUNGS: CTA. No wheezes, no crackles, no accessory muscle use. HEART: Regular rate and rhythm, S1, S2 without murmur, rub or gallop. ABDOMEN: Soft, nontender, nondistended, normoactive bowel sounds, no guarding, no rebound, no hepatosplenomegaly, no masses. EXTREMITIES: 2+ pulses, warm, well-perfused, no edema. NEUROLOGICAL: Cranial nerves II through XII grossly intact. Normal speech, gait not observed. LABS Laboratory Results - last 24 hr 04/24/16 04/24/16 04/25/16 15:00 17:06 05:35 WBC 12.4 H RBC 3.42 L Hgb 9.9 L Hct 30.9 L MCV 90.5 MCHC 32.0 RDW 14.6 Plt Count 240 MPV 8.4 Neutrophils % 65.1 Lymphocytes % 18.3 D Monocytes % 11.5 H Eosinophils % 4.1 Basophils % 1.0 ESR Sodium Potassium Chloride Carbon Dioxide Anion Gap BUN Creatinine POC Glucometer 101 Random Glucose Calcium Phosphorus Magnesium Ferritin C-Reactive Protein Vitamin B12 Stool Occult Blood Negative 04/25/16 04/25/16 04/25/16 05:35 05:39 10:00 WBC RBC Hgb Hct MCV MCHC RDW Plt Count MPV Neutrophils % Lymphocytes % Monocytes % Eosinophils % Basophils % ESR Sodium 140 Potassium 4.1 Chloride 97 L Carbon Dioxide 28 Anion Gap 15 BUN 60 H D Creatinine 6.6 H D POC Glucometer 75 Random Glucose 111 H Calcium 9.0 Phosphorus 4.5 Magnesium 1.9 Ferritin C-Reactive Protein 3.2 H Vitamin B12 Stool Occult Blood 04/25/16 04/25/16 10:00 10:00 WBC RBC Hgb Hct MCV MCHC RDW Plt Count MPV Neutrophils % Lymphocytes % Monocytes % Eosinophils % Basophils % ESR 64 H Sodium Potassium Chloride Carbon Dioxide Anion Gap BUN Creatinine POC Glucometer Random Glucose Calcium Phosphorus Magnesium Ferritin 215.267 C-Reactive Protein Vitamin B12 827 Stool Occult Blood HOSPITAL COURSE: Date of Admission:04/18/16 Date of Discharge: 04/25/16 60 year-old man with a PMH of HTN, HLD, CAD s/p CABG x 4 (2006), systolic HF, paroxysmal afib, NIDDM, and CKD Stage 5. Admitted for LE pain and weakness, worsening renal function, now s/p initiation of HD. ESRD on HD --permacath placed and HD initiated on 04/18 --outpatient HD unit placement pending Acute on chronic systolic heart failure --04/18/16 echo: LV moderately reduced, moderate anterior wall hypokinesis, mid anteroseptal wall moderate hypokinesis, basal anteroseptal wall moderate hypokinesis; RV normal; severe LAE, moderate AUGUSTINA; mild MR; moderate TR; mild pHTN; cannot r/o --Lasix PO 80mg BID --HD for fluid balance --continued metoprolol --started valsartan 80mg BID Hyperphosphatemia Pruritis --thigh muscle pain/contractions discussed with Dr. Weiss, he is concerned for calciphylaxis given uremia/high Ca x Phos product --CT of LE confirmed soft tissue calcifications --continue sevelamer with goal phos <4.5 --Atarax for itching Paroxysmal afib/aflutter --continued metoprolol --started on Eliquis 2.5mg BID for a/c Hypertension --BP well-controlled --continued metoprolol, hydralazine, isosorbide, Valsartan CAD s/p CABG x 4 --troponins mildly elevated but flat in setting of severe renal disease, normal CK; not consistent with ACS --continued metoprolol, Lipitor, ASA Hyperlipidemia --continued Lipitor Anemia of chronic disease --transfused 1 unit PRBC 04/17 --h/h stable --stool occult negative NIDDM --Novolog sliding scale coverage Minutes to complete discharge: 35 Discharge Summary Reason For Visit: RENAL FAILURE/CHF Current Active Problems Anemia (Acute) Bilateral shoulder pain (Acute) CHF exacerbation (Acute) DVT prophylaxis (Acute) Diarrhea (Acute) Renal failure (Acute) Congestive heart failure (Chronic) Condition: Improved - Instructions Referrals: Jacque Anaya MD [Primary Care Provider] - Won Weiss MD [Staff Physician] - Disposition: LONGTERM FACILITY - Home Medications Comprehensive Discharge Medication List: Ambulatory Orders Aspirin [ASA -] 81 mg PO DAILY 09/21/15 Cholecalciferol (Vitamin D3) [Vitamin D3] 1,000 unit PO DAILY 09/21/15 Fenofibrate 48 mg PO DAILY 09/21/15 Furosemide [Lasix -] 80 mg PO BID 09/21/15 Hydralazine HCl [Apresoline -] 25 mg PO BID 09/21/15 Isosorbide Dinitrate [Isordil -] 10 mg PO BID 09/21/15 Lovastatin [Altoprev] 40 mg PO DAILY 09/21/15 Multivitamins [Multivit ([facility] Formulary)] 1 tab PO DAILY 09/21/15 Sertraline HCl 50 mg PO HS 09/21/15 Trazodone HCl 200 mg PO HS 09/21/15 Sitagliptin Phosphate [Januvia] 25 mg PO DAILY #30 tablet 10/02/15 Acetaminophen [Tylenol .Regular Strength -] 650 mg PO Q6H PRN #0 tablet Ammonium Lactate Lotion [Lac-Hydrin 12] 1 applic TP BID PRN #0 bottle 04/25/16 Apixaban [Eliquis] 2.5 mg PO BID #60 tablet 04/25/16 Diphenhydramine HCl [Benadryl Capsule -] 25 mg PO Q6H PRN #0 capsule 04/25/16 Hydroxyzine HCl [Atarax -] 10 mg PO Q6HPO tablet 04/25/16 Insulin Sliding Scale [Novolog Vial Sliding Scale -] 1 vial SQ ACBK units 04/25 Metoprolol Succinate [Toprol XL -] 100 mg PO BID tab.sr.24h 04/25/16 Potassium Chloride [K-Dur -] 40 meq PO DAILY tablet.er 04/25/16 Sevelamer Carbonate [Renvela -] 1,600 mg PO TIDCM tab 04/25/16 Sodium Bicarbonate - 650 mg PO BID tablet 04/25/16 Valsartan [Diovan] 80 mg PO BID tablet 04/25/16 This patient is new to me today: No Emergency Visit: Yes ED Registration Date: 04/18/16 Care time: The patient presented to the Emergency Department on the above date and was hospitalized for further evaluation of their emergent condition. Critical Care patient: No - Discharge Referral Referred to [facility] Med P.C.: No
[2016-04-25 16:03] VITALS: TEMP 98.1
[2016-04-25 19:21] VITALS: BP 116/54; PULSE 81
[2016-04-26 06:06] LABS: SERUM IRON 61 ug/dL (38-169); TOTAL IRON BINDING CAPACITY 312 ug/dL (250-450); UIBC 251 ug/dL (111-343)
[2016-04-27 00:07] LABS: INFLUENZA ANTIBODY TYPE B 1:32 (Neg:<1:8)
[2016-04-27 06:06] LABS: HEMATOCRIT 32.7 % (37.5-51.0)
[2016-04-27 10:20] LABS: A/G RATIO 1.1 (0.7-1.7); ALBUMIN 3.6 g/dL (2.9-4.4); GLOBULIN, TOTAL 3.2 g/dL (2.2-3.9); M-SPIKE Not Observed g/dL (Not Observed); TOTAL PROTEIN 6.8 g/dL (6.0-8.5)
== END 2016-04-25 19:30 | DRG 698 ==
LOC: FER 17:00 → J4S 04-18 00:30
PROVIDERS: ADMIT Internal Medicine; ATTEND Nurse Practitioner Acute Care
PROC: 05HM33Z Insertion of Infusion Device into Right Internal Jugular Vein, Percutaneous Approach (ICD-10-PCS; 2016-04-18)
PROC: B5131ZA Fluoroscopy of Right Jugular Veins using Low Osmolar Contrast, Guidance (ICD-10-PCS; 2016-04-18)
PROC: 30233N1 Transfusion of Nonautologous Red Blood Cells into Peripheral Vein, Percutaneous Approach (ICD-10-PCS; 2016-04-18)
PROC: 5A1D60Z (ICD-10-PCS; principal; 2016-04-18 13:30)
DX: E11.22 Type 2 diabetes mellitus with diabetic chronic kidney disease (principal); I50.23 Acute on chronic systolic (congestive) heart failure; I13.2 Hypertensive heart and chronic kidney disease with heart failure and with stage 5 chronic kidney disease, or end stage renal disease; L97.819 Non-pressure chronic ulcer of other part of right lower leg with unspecified severity; L97.829 Non-pressure chronic ulcer of other part of left lower leg with unspecified severity; N18.6 End stage renal disease; I25.10 Atherosclerotic heart disease of native coronary artery without angina pectoris; Z95.1 Presence of aortocoronary bypass graft; E78.5 Hyperlipidemia, unspecified; I48.0 Paroxysmal atrial fibrillation; K21.9 Gastro-esophageal reflux disease without esophagitis; R60.0 Localized edema; I83.008 Varicose veins of unspecified lower extremity with ulcer other part of lower leg; F32.9 Major depressive disorder, single episode, unspecified; M25.512 Pain in left shoulder; M25.511 Pain in right shoulder; I36.1 Nonrheumatic tricuspid (valve) insufficiency; I34.0 Nonrheumatic mitral (valve) insufficiency; R19.7 Diarrhea, unspecified; Z79.4 Long term (current) use of insulin; M62.552 Muscle wasting and atrophy, not elsewhere classified, left thigh; M62.551 Muscle wasting and atrophy, not elsewhere classified, right thigh; E83.39 Other disorders of phosphorus metabolism; L29.9 Pruritus, unspecified; R00.0 Tachycardia, unspecified; E83.42 Hypomagnesemia; M61.9 Calcification and ossification of muscle, unspecified
CPT/HCPCS: 36415; 36430; 71010-TC; 73700-TC-RT; 76000-TC; 76775-TC; 80048; 80053; 81003; 81015; 82272; 82550; 82565; 82607; 82728; 82747; 83540; 83550; 83735; 83880; 83883; 83970; 84100; 84155; 84156; 84157; 84165; 84484; 84520; 85014; 85025; 85027; 85610; 85651; 85730; 86140; 86704; 86706; 86707; 86708; 86710; 86850; 86900; 86901; 86922; 87040; 87086; 87340; 87350; 93005; 93010; 93306-TC; 93970-TC; 94760; 97116-GP; 97162-PG; 99285-25; J0885; J1644; P9058

== ENCOUNTER 2016-05-11 12:34 | Inpatient (IN) | payer OTHER ==
[2016-05-11 12:44] VITALS: BMI 28.5
--- NOTE | 2016-05-11 12:54 | PDOC ---
History of Present Illness <Avinash Benito - Last Filed: 05/11/16 14:58> - General History Source: Patient Exam Limitations: No Limitations - History of Present Illness Initial Comments: 05/11/16 13:10 The patient is a 60 year old male with significant past medical history of hypertension, hyperlipidemia, diabetes, CAD s/p CABG x4, systolic heart failure , paroxysmal a-fib, ESRD on dialysis T// who presents to the emergency department with left foot pain and a cough for the last 2 days. The patient was seen in the ED 3 days ago (05/08/16) for left foot pain and was going to be admitted for a possible infection in the left foot but he left AMA. He reports a dry cough. He reports associated chest pain that is worse when he coughs. He denies any shortness of breath. The patient has been taking Clindamycin for his foot infection; he states the foot looks the same as it did on Sunday. He denies any fevers but reports chills. He denies any palpitations. He denies abdominal pain, nausea, and vomiting. <Katerina Chaudhari - Last Filed: 05/11/16 16:10> - General Chief Complaint: Shortness of Breath Stated Complaint: SHORTNESS OF BREATH Time Seen by Provider: 05/11/16 12:53 Past History - Past Medical History Anemia: Yes Asthma: No Cancer: No Cardiac Disorders: Yes (CAD) CVA: No COPD: No CHF: No Dementia: No Diabetes: Yes (2006) GI Disorders: Yes (GERD) Disorders: No HTN: Yes Hypercholesterolemia: Yes Liver Disease: No Psychiatric Problems: Yes (depression,) Seizures: No Thyroid Disease: No - Surgical History Abdominal Surgery: No Appendectomy: No Cardiac Surgery: Yes (quadriple bypass) Cholecystectomy: No Lung Surgery: No Neurologic Surgery: No Orthopedic Surgery: No - Immunization History Immunization Up to Date: Yes - Psycho/Social/Smoking Cessation Hx Anxiety: No Suicidal Ideation: No Smoking Status: No Smoking History: Former smoker Have you smoked in the past 12 months: No Number of Cigarettes Smoked Daily: 0 If you are a former smoker, when did you quit?: 2000 Information on smoking cessation initiated: No Hx Alcohol Use: No Drug/Substance Use Hx: No Substance Use Type: None Hx Substance Use Treatment: No <Avinash Benito - Last Filed: 05/11/16 14:58> <Katerina Chaudhari - Last Filed: 05/11/16 16:10> - Past Medical History Allergies/Adverse Reactions: Allergies Allergy/AdvReac Type Severity Reaction Status Date / Time gabapentin Allergy Severe Verified 05/08/16 11:22 lisinopril Allergy Severe TONGUE Verified 05/08/16 11:22 SWELLING pregabalin [From Lyrica] Allergy Severe Swelling Verified 05/08/16 11:22 Home Medications: Ambulatory Orders Apixaban [Eliquis] 2.5 mg PO BID 05/11/16 Cholecalciferol (Vitamin D3) [Vitamin D3 -] 1,000 unit PO DAILY 05/11/16 Diltiazem [Cardizem -] 30 mg PO TID 05/11/16 Fenofibrate Nanocrystallized [Fenofibrate] 48 mg PO DAILY 05/11/16 Furosemide [Lasix] 80 mg PO BID 05/11/16 Hydralazine HCl [Apresoline -] 25 mg PO BID 05/11/16 Isosorbide Dinitrate [Isordil -] 10 mg PO DAILY 05/11/16 Lovastatin [Altoprev] 40 mg PO DAILY 05/11/16 Metoprolol Succinate [Toprol Xl] 100 mg PO BID 05/11/16 Sertraline HCl 50 mg PO DAILY 05/11/16 Sitagliptin Phosphate [Januvia] 25 mg PO DAILY 05/11/16 Tramadol HCl 50 mg PO BID 05/11/16 Trazodone HCl 100 mg PO BID 05/11/16 Valsartan [Diovan] 80 mg PO DAILY 05/11/16 Review of Systems - Review of Systems Able to Perform ROS?: Yes Comments:: 05/11/16 13:10 GENERAL/CONSTITUTIONAL: +Chills. No fever. No weakness. HEAD, EYES, EARS, NOSE AND THROAT: No change in vision. No ear pain or discharge. No sore throat. CARDIOVASCULAR: +Chest pain. No shortness of breath. RESPIRATORY: +Cough. No wheezing or hemoptysis. GASTROINTESTINAL: No nausea, vomiting, diarrhea or constipation. GENITOURINARY: No dysuria, frequency, or change in urination. MUSCULOSKELETAL: +Left foot pain. No joint or muscle swelling or pain. No neck or back pain. SKIN: No rash NEUROLOGIC: No headache, vertigo, loss of consciousness, or change in strength/ sensation. ENDOCRINE: No increased thirst. No abnormal weight change. HEMATOLOGIC/LYMPHATIC: No anemia, easy bleeding, or history of blood clots. ALLERGIC/IMMUNOLOGIC: No hives or skin allergy. <Katerina Chaudhari - Last Filed: 05/11/16 16:10> *Physical Exam - Vital Signs Last Vital Signs Temp Pulse Resp BP Pulse Ox 98.3 F 122 H 24 112/69 100 05/11/16 12:42 05/11/16 12:42 05/11/16 12:42 05/11/16 12:42 05/11/16 12:42 <Avinash Benito - Last Filed: 05/11/16 14:58> - Vital Signs Last Vital Signs Temp Pulse Resp BP Pulse Ox 98.3 F 122 H 24 112/69 100 05/11/16 12:42 05/11/16 12:42 05/11/16 12:42 05/11/16 12:42 05/11/16 12:42 - Physical Exam Comments: 05/11/16 13:10 GENERAL: Awake, alert, and fully oriented, in no acute distress HEAD: No signs of trauma EYES: PERRLA, EOMI, sclera anicteric, conjunctiva clear ENT: Auricles normal inspection, hearing grossly normal, nares patent, oropharynx clear without exudates. Moist mucosa NECK: Normal ROM, supple, no lymphadenopathy, JVD, or masses LUNGS: +Wheezing and rales in the bilateral lung ramirez. HEART: +Tachycardic and regular rhythm, normal S1 and S2, no murmurs, rubs or gallops ABDOMEN: Soft, nontender, normoactive bowel sounds. No guarding, no rebound. No masses EXTREMITIES: +Left foot with multiple superficial ulcers to toes with erythema to dorsum of foot extending to the ankle, tenderness to palpation. Pulses intact. Normal range of motion. No clubbing or cyanosis. No cords. NEUROLOGICAL: Cranial nerves II through XII grossly intact. Normal speech, normal gait SKIN: Warm, Dry, normal turgor, no rashes or lesions noted. <Katerina Chaudhari - Last Filed: 05/11/16 16:10> Heart Score/ECG Review - ECG Intrepretation Comment:: 05/11/16 16:09 Vent rate: 124 bpm AL interval: 164 ms QRS duration: [address] & T wave abnormality, consider inferior ischemia <Katerina Chaudhari - Last Filed: 05/11/16 16:10> ED Treatment Course - LABORATORY CBC & Chemistry Diagram: 05/11/16 13:20 05/11/16 13:20 <Avinash Benito - Last Filed: 05/11/16 14:58> - LABORATORY CBC & Chemistry Diagram: 05/11/16 13:20 05/11/16 13:20 <Katerina Chaudhari - Last Filed: 05/11/16 16:10> *DC/Admit/Observation/Transfer - Discharge Dispostion Admit: Yes - Attestations Physician Attestion: 05/11/16 12:53 I, Dr. Avinash Benito, attest that this document has been prepared under my direction and personally reviewed by me in its entirety. I further attest, that it accurately reflects all work, treatment, procedures and medical decision -making performed by me. <Avinash Benito - Last Filed: 05/11/16 14:58> - Attestations Scribe Attestion: 05/11/16 13:10 Documentation prepared by Katerina Chaudhari, acting as medical transport specialist for Avinash Benito DO. <Katerina Chaudhari - Last Filed: 05/11/16 16:10> Diagnosis at time of Disposition: Microangiopathy, diabetic, Cellulitis and abscess of foot CHF exacerbation Qualifiers: Congestive heart failure type: unspecified congestive heart failure type Qualified Code(s): I50.9 - Heart failure, unspecified - Discharge Dispostion Disposition: HOME - Referrals
[2016-05-11] MEDS ORDERED: ONDANSETRON 4 MG/2 ML VIAL IVPUSH ONE (13:06)
[2016-05-11] MEDS ORDERED: morphine CARPU-JECT 4 MG/1 ML DISP.SYRIN IVPUSH ONE (13:06)
[2016-05-11] MEDS ORDERED: ALBUTEROL SO4 2.5/IPRATROPIUM 0.5 INH SOL 3 ML VIAL.NEB. NEB ONE ×2 (13:08→13:36)
[2016-05-11 13:29] LABS: BASOPHIL 0.6 % (0-2.0); EOSINOPHIL 0.8 % (0-4.5); MCH 28.4 pg (25.7-33.7); MCHC 31.2 g/dl (32.0-35.9); NEUTROPHILS 84.7 % (42.8-82.8); PLATELET COUNT 322 K/MM3 (134-434); RDW 16.3 % (11.9-15.9); WHITE BLOOD COUNT 13.9 K/mm3 (4.0-10.0)
[2016-05-11] MEDS ORDERED: morphine CARPU-JECT 4 MG/1 ML DISP.SYRIN ONE (13:35)
[2016-05-11] MEDS ORDERED: ONDANSETRON 4 MG/2 ML VIAL ONE (13:35)
[2016-05-11 13:49] LABS: ALBUMIN 3.3 g/dl (3.4-5.0); ANION GAP 20 (8-16); BILIRUBIN,TOTAL 0.6 mg/dL (0.2-1.0); CALCIUM 9.1 mg/dL (8.5-10.1); CO2 21 mmol/L (21-32); GLUCOSE,RANDOM 86 mg/dL (74-106); SGOT/AST 22 U/L (15-37); SGPT/ALT 20 U/L (12-78); TOT PROT 7.5 g/dl (6.4-8.2)
[2016-05-11 13:58] LABS: INR 1.59 (0.82-1.09); PROTHROMBIN TIME (PATIENT) 17.6 SEC (9.98-11.88)
[2016-05-11 14:04] LABS: ALK PHOS 59 U/L (45-117); TROPONIN I < 0.02 ng/ml (0.00-0.05)
[2016-05-11 14:17] LABS: CREATININE 9.2 mg/dL (0.7-1.3)
[2016-05-11] MEDS ORDERED: VANCOMYCIN 1 GRAM (PRE-DOCKED) 1,000 MG/250 ML BAG IVPB ONE (14:57)
[2016-05-11] MEDS ORDERED: VANCOMYCIN 1 GRAM (PRE-DOCKED) 250 ML IVPB ONE (15:13)
[2016-05-11] MEDS ORDERED: EPOETIN ALFA 2,000 UNITS/1 ML VIAL IVPUSH ONE (18:45)
[2016-05-11] MEDS: FUROSEMIDE 40 MG TABLET (FP) PO SCH (23:56)
[2016-05-11] MEDS: dilTIAZem HCL 30 MG TABLET (FP) PO SCH (23:56)
[2016-05-11] MEDS: APIXABAN 2.5 MG TABLET PO SCH (23:56)
[2016-05-11] MEDS: METOPROLOL SUCCINATE 100 MG TAB.SR.24H (FP) PO SCH (23:56)
[2016-05-11] MEDS: ATORVASTATIN CA 10 MG TABLET (FP) PO SCH (23:56)
[2016-05-11] MEDS: hydrALAZINE HCL 25 MG TABLET (FP) PO SCH (23:56)
[2016-05-12] MEDS ORDERED: morphine CARPU-JECT 4 MG/1 ML DISP.SYRIN IVPUSH PRN (00:24)
[2016-05-12] MEDS ORDERED: morphine CARPU-JECT 2 MG/1 ML DISP.SYRIN ONE (00:36)
[2016-05-12] MEDS: dilTIAZem HCL 30 MG TABLET (FP) PO SCH (06:26)
[2016-05-12] MEDS: sitaGLIPtin PHOSPHATE 25 MG TABLET (FP) PO SCH (06:26)
[2016-05-12] MEDS: morphine CARPU-JECT 2 MG/1 ML DISP.SYRIN IVPUSH PRN ×2 (06:35→20:15)
[2016-05-12 08:30] LABS: BASOPHIL 0.8 % (0-2.0); EOSINOPHIL 1.3 % (0-4.5); MCH 29.1 pg (25.7-33.7); MCHC 32.1 g/dl (32.0-35.9); MEAN CELL VOLUME 90.6 fl (80-96); NEUTROPHILS 77.7 % (42.8-82.8); PLATELET COUNT 297 K/MM3 (134-434); WHITE BLOOD COUNT 10.4 K/mm3 (4.0-10.0)
--- NOTE | 2016-05-12 08:41 | CON.CARD ---
Consult Consult Specialty:: cardiology - Past Medical History [employer]IST: Yes: Peripheral Neuropathy Cardio/Vascular: Yes: CAD, CHF Pulmonary: Yes: COPD Renal/: Yes: Renal Failure Endocrine: Yes: Diabetes Mellitus - Alcohol/Substance Use Hx Alcohol Use: No - Smoking History Smoking history: Former smoker Have you smoked in the past 12 months: No Aproximately how many cigarettes per day: 0 If you are a former smoker, when did you quit?: 2000 Home Medications - Allergies Allergies/Adverse Reactions: Allergies Allergy/AdvReac Type Severity Reaction Status Date / Time gabapentin Allergy Severe Verified 05/08/16 11:22 lisinopril Allergy Severe TONGUE Verified 05/08/16 11:22 SWELLING pregabalin [From Lyrica] Allergy Severe Swelling Verified 05/08/16 11:22 - Home Medications Home Medications: Ambulatory Orders Apixaban [Eliquis] 2.5 mg PO BID 05/11/16 Cholecalciferol (Vitamin D3) [Vitamin D3 -] 1,000 unit PO DAILY 05/11/16 Diltiazem [Cardizem -] 30 mg PO TID 05/11/16 Fenofibrate Nanocrystallized [Fenofibrate] 48 mg PO DAILY 05/11/16 Furosemide [Lasix] 80 mg PO BID 05/11/16 Hydralazine HCl [Apresoline -] 25 mg PO BID 05/11/16 Isosorbide Dinitrate [Isordil -] 10 mg PO DAILY 05/11/16 Lovastatin [Altoprev] 40 mg PO DAILY 05/11/16 Metoprolol Succinate [Toprol Xl] 100 mg PO BID 05/11/16 Sertraline HCl 50 mg PO DAILY 05/11/16 Sitagliptin Phosphate [Januvia] 25 mg PO DAILY 05/11/16 Tramadol HCl 50 mg PO BID 05/11/16 Trazodone HCl 100 mg PO BID 05/11/16 Valsartan [Diovan] 80 mg PO DAILY 05/11/16 Vital Signs: Vital Signs Temperature 97.9 F 05/12/16 06:00 Pulse Rate 100 H 05/12/16 06:00 Respiratory Rate 20 05/12/16 06:00 Blood Pressure 115/51 05/12/16 06:00 O2 Sat by Pulse Oximetry (%) 96 05/11/16 23:17 - Other Data Labs, Other Data: CBC, BMP 05/12/16 05:50 INR, PTT INR 1.59 (0.82-1.09) H 05/11/16 13:20
[2016-05-12] MEDS: hydrALAZINE HCL 25 MG TABLET (FP) PO SCH (09:20)
[2016-05-12] MEDS: FUROSEMIDE 40 MG TABLET (FP) PO SCH ×3 (09:21→22:00)
[2016-05-12] MEDS: APIXABAN 2.5 MG TABLET PO SCH ×2 (09:21→21:14)
[2016-05-12 09:22] LABS: TROPONIN I 0.03 ng/ml (0.00-0.05)
[2016-05-12] MEDS: METOPROLOL SUCCINATE 100 MG TAB.SR.24H (FP) PO SCH ×2 (09:26→21:14)
[2016-05-12] MEDS: SERTRALINE HCL 50 MG TABLET (FP) PO SCH (09:28)
[2016-05-12] MEDS: CHOLECALCIFEROL (VITAMIN D3) 400 UNIT TABLET (FP) PO SCH (09:29)
[2016-05-12 09:32] LABS: CREATININE 6.2 mg/dL (0.7-1.3)
[2016-05-12 09:34] LABS: BILIRUBIN,TOTAL 0.5 mg/dL (0.2-1.0); TOT PROT 7.1 g/dl (6.4-8.2)
[2016-05-12] MEDS ORDERED: ISOSORBIDE DINITRATE 5 MG TABLET PO SCH (10:00)
[2016-05-12] MEDS ORDERED: sitaGLIPtin PHOSPHATE 25 MG TABLET (FP) PO SCH (10:00)
[2016-05-12] MEDS ORDERED: VALSARTAN 80 MG TABLET (UD) PO SCH (10:00)
--- NOTE | 2016-05-12 10:31 | CON.CARD ---
Cardiology Consult (text) - Consultation Consultation Note: CC: pain in foot hpi: 60 m hx htn, hld, dm, cabg (04/2006), ESRD, afib/flutter, syst chf, esrd on hd, here with foot pain. Recent admit for initiation of HD now here with pain in foot, possible cellulitis and gangrene. No cp, sob, palps, loc, pnd, orthopnea, le edema. Occasional dizziness past few weeks and also with weakness in legs. Sees dr barker for cardio. pmh: per hpi psh: cabg social: ex tob fam: no premature cad, scd ros: per hpi; no nvd, fever, ngo, vision changes, gib, hematuria, dysuria, +pain in legs/feet meds: Home Medications Medication Instructions Recorded Apixaban [Eliquis] 2.5 mg PO BID 05/11/16 Cholecalciferol (Vitamin D3) 1,000 unit PO DAILY 05/11/16 [Vitamin D3 -] Diltiazem [Cardizem -] 30 mg PO TID 05/11/16 Fenofibrate Nanocrystallized 48 mg PO DAILY 05/11/16 [Fenofibrate] Furosemide [Lasix] 80 mg PO BID 05/11/16 Hydralazine HCl [Apresoline -] 25 mg PO BID 05/11/16 Isosorbide Dinitrate [Isordil -] 10 mg PO DAILY 05/11/16 Lovastatin [Altoprev] 40 mg PO DAILY 05/11/16 Metoprolol Succinate [Toprol Xl] 100 mg PO BID 05/11/16 Sertraline HCl 50 mg PO DAILY 05/11/16 Sitagliptin Phosphate [Januvia] 25 mg PO DAILY 05/11/16 Tramadol HCl 50 mg PO BID 05/11/16 Trazodone HCl 100 mg PO BID 05/11/16 Valsartan [Diovan] 80 mg PO DAILY 05/11/16 pe: Vital Signs Period Temp Pulse Resp BP Sys/Ledbetter Pulse Ox Last 24 Hr 97.5 F-98.3 F 92-124 18-24 101-138/51-74 95-100 nad, mild jvd rrr s1s2 2/6 murmur at apex. cta bl nl eff aaox3 trace+ LE edema with erythema bl abd pos bs, nd, nt +dp pt no carotid bruits no jaundice diaphoresis Laboratory Last Values WBC 10.4 K/mm3 (4.0-10.0) H 05/12/16 05:50 RBC 3.55 M/mm3 (4.00-5.60) L 05/12/16 05:50 Hgb 10.3 GM/dL (11.7-16.9) L 05/12/16 05:50 Hct 32.2 % (35.4-49) L 05/12/16 05:50 MCV 90.6 fl (80-96) 05/12/16 05:50 MCHC 32.1 g/dl (32.0-35.9) 05/12/16 05:50 RDW 16.0 % (11.9-15.9) H 05/12/16 05:50 Plt Count 297 K/MM3 (134-434) 05/12/16 05:50 MPV 8.0 fl (7.5-11.1) 05/12/16 05:50 Neutrophils % 77.7 % (42.8-82.8) 05/12/16 05:50 Lymphocytes % 10.7 % (8-40) D 05/12/16 05:50 Monocytes % 9.5 % (3.8-10.2) 05/12/16 05:50 Eosinophils % 1.3 % (0-4.5) 05/12/16 05:50 Basophils % 0.8 % (0-2.0) 05/12/16 05:50 INR 1.59 (0.82-1.09) H 05/11/16 13:20 Sodium 136 mmol/L (136-145) 05/12/16 05:50 Potassium 4.5 mmol/L (3.5-5.1) D 05/12/16 05:50 Chloride 97 mmol/L (98-107) L 05/12/16 05:50 Carbon Dioxide 26 mmol/L (21-32) D 05/12/16 05:50 Anion Gap 13 (8-16) 05/12/16 05:50 BUN 51 mg/dL (7-18) H D 05/12/16 05:50 Creatinine 6.2 mg/dL (0.7-1.3) H D 05/12/16 05:50 Creat Clearance w eGFR 9.22 (>60) 05/12/16 05:50 POC Glucometer 86 UNITS (()) 05/12/16 05:33 Random Glucose 67 mg/dL (74-106) L D 05/12/16 05:50 Calcium 9.0 mg/dL (8.5-10.1) 05/12/16 05:50 Total Bilirubin 0.5 mg/dL (0.2-1.0) 05/12/16 05:50 AST 43 U/L (15-37) H D 05/12/16 05:50 ALT 30 U/L (12-78) D 05/12/16 05:50 Alkaline Phosphatase 58 U/L (45-117) 05/12/16 05:50 Creatine Kinase 44 IU/L (39-308) 05/12/16 05:50 Troponin I 0.03 ng/ml (0.00-0.05) D 05/12/16 05:50 B-Natriuretic Peptide 93440.58 pg/ml (5-125) H 05/11/16 13:20 Total Protein 7.1 g/dl (6.4-8.2) 05/12/16 05:50 Albumin 3.0 g/dl (3.4-5.0) L 05/12/16 05:50 ecg 05/11/16: sr/sinus tachy, nl intervals, nonspecific tw changes, no st changes , no sig change priors tele: sr, occ pvcs cxr: clear lungs echo 09/2015: mod lve, mild-mod dec lvef, global HK, nl rv, mod-sev mr, sev tr, marixa, nl rvsp echo 03/2016: mild lve, mod dec lvef, ant HK, nl rv size, marixa, mild mr, mod tr, rvsp 40-50 a/p: 60 m hx htn, hld, dm, cabg (04/2006), ESRD, afib/flutter, syst chf, esrd on HD, here with foot pain. chronic syst chf: -vol status stable, no signs of chf at present -cont po lasix 80 bid and HD for vol management -recent echo 03/2016 here similar to 09/2015, shows mod reduced lvef -con't bb, will hold diovan 80 qd, hydralazine 25 bid, and isordil 10 qd given low bp possibly from sepsis, resume when bp improved -stopped diltiazem last admit here in light of cardiomyopathy afib/flutter: -in sr now, cont toprol, monitor on tele for now -cont eliquis 2.5 bid -stopped diltiazem last admit here in light of cardiomyopathy ESRD -cont hd per renal htn: -bp low here, possibly due to infection/cellulitis so will hold diovan, nitrate , hydralazine for now, resume when bp stable -has been having some dizziness at home, possibly due to these low bp's in setting of infection, monitor sxs while here hld: -cont statin cad s/p cabg: -ce's neg x2, EKG without ischemic changes, no signs chf -recent echo w/o sig change from prior -cont statin, bb, ac le cellulitis, possible gangrene: -plans per surgery, ID -ok to hold eliquis if needed for debridement
[2016-05-12] MEDS: FENOFIBRIC ACID 45 MG CAP PO SCH (11:30)
--- NOTE | 2016-05-12 12:16 | HP ---
Admitting History and Physical - Admission Chief Complaint: leg pain History of Present Illness: Pt is a 60 y/o male w/ multiple medical problems including HTN, HLD, systolic CHF, S/P CABG, ESRD on HD. Afib, diabetes, GERD and depression. Pt was seen in the ER on 05/08/16 for lt foot ulcers and was started on po clinda. Pt now returns to the ER w/ lt foot pain and SOB. Pt was found to be in fluid overload. 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: Peripheral Neuropathy Cardiovascular: Yes: AFIB, CAD, CHF, HTN, Hyperlipdemia Pulmonary: Yes: COPD Gastrointestinal: Yes: GERD Renal/: Yes: Renal Failure Heme/Onc: Yes: Anemia Psych: Yes: Depression Endocrine: Yes: Diabetes Mellitus - Past Surgical History Past Surgical History: Yes: CABG - Smoking History Smoking history: Former smoker Have you smoked in the past 12 months: No Aproximately how many cigarettes per day: 0 If you are a former smoker, when did you quit?: 2000 - Alcohol/Substance Use Hx Alcohol Use: No Home Medications - Allergies Allergies/Adverse Reactions: Allergies Allergy/AdvReac Type Severity Reaction Status Date / Time gabapentin Allergy Severe Verified 05/08/16 11:22 lisinopril Allergy Severe TONGUE Verified 05/08/16 11:22 SWELLING pregabalin [From Lyrica] Allergy Severe Swelling Verified 05/08/16 11:22 - Home Medications Home Medications: Ambulatory Orders Apixaban [Eliquis] 2.5 mg PO BID 05/11/16 Cholecalciferol (Vitamin D3) [Vitamin D3 -] 1,000 unit PO DAILY 05/11/16 Diltiazem [Cardizem -] 30 mg PO TID 05/11/16 Fenofibrate Nanocrystallized [Fenofibrate] 48 mg PO DAILY 05/11/16 Furosemide [Lasix] 80 mg PO BID 05/11/16 Hydralazine HCl [Apresoline -] 25 mg PO BID 05/11/16 Isosorbide Dinitrate [Isordil -] 10 mg PO DAILY 05/11/16 Lovastatin [Altoprev] 40 mg PO DAILY 05/11/16 Metoprolol Succinate [Toprol Xl] 100 mg PO BID 05/11/16 Sertraline HCl 50 mg PO DAILY 05/11/16 Sitagliptin Phosphate [Januvia] 25 mg PO DAILY 05/11/16 Tramadol HCl 50 mg PO BID 05/11/16 Trazodone HCl 100 mg PO BID 05/11/16 Valsartan [Diovan] 80 mg PO DAILY 05/11/16 Family Disease History - Family Disease History Family History: Unremarkable Review of Systems - Review of Systems Constitutional: reports: Weakness HENT: reports: No Symptoms Neck: reports: No Symptoms Cardiovascular: reports: Shortness of Breath Respiratory: reports: SOB Musculoskeletal: reports: Extremity Pain Psychiatric: reports: Depression Physical Examination Vital Signs: Vital Signs Temperature 97.9 F 05/12/16 06:00 Pulse Rate 100 H 05/12/16 06:00 Respiratory Rate 20 05/12/16 06:00 Blood Pressure 115/51 05/12/16 06:00 O2 Sat by Pulse Oximetry (%) 95 05/12/16 09:00 Constitutional: Yes: Well Nourished HENT: Yes: WNL Neck: Yes: Supple Cardiovascular: Yes: WNL, Regular Rate and Rhythm, Murmur Respiratory: Yes: WNL, Regular, CTA Bilaterally Gastrointestinal: Yes: WNL, Normal Bowel Sounds, Soft, Abdomen, Obese Extremities: Yes: Other ((+) ulcers lt foot) Labs: CBC, BMP 05/12/16 05:50 05/12/16 05:50 Problem List - Problems (1) End stage renal disease Assessment/Plan: Dialysis as per renal Monitor electrolytes Code(s): N18.6 - END STAGE RENAL DISEASE (2) Cellulitis of foot Assessment/Plan: Cont IV ceftriaxone Pt also given dose of IV vanco As per ID/vascular Code(s): L03.119 - CELLULITIS OF UNSPECIFIED PART OF LIMB (3) HTN (hypertension) Assessment/Plan: BP stable Code(s): I10 - ESSENTIAL (PRIMARY) HYPERTENSION (4) Congestive heart failure Assessment/Plan: Pt now on toresemide Code(s): I50.9 - HEART FAILURE, UNSPECIFIED Qualifiers: Congestive heart failure type: systolic Congestive heart failure chronicity: acute on chronic Qualified Code(s): I50.23 - Acute on chronic systolic (congestive) heart failure (5) Diabetes Assessment/Plan: Cont januvia Code(s): E11.9 - TYPE 2 DIABETES MELLITUS WITHOUT COMPLICATIONS (6) Afib Assessment/Plan: Heart rate controlled Cont eliquis Code(s): I48.91 - UNSPECIFIED ATRIAL FIBRILLATION (7) CAD, multiple vessel Code(s): I25.10 - ATHSCL HEART DISEASE OF [place] CORONARY ARTERY W/O ANG PCTRS (8) Chronic venous stasis dermatitis of both lower extremities Code(s): I83.11 - VARICOSE VEINS OF RIGHT LOWER EXTREMITY WITH INFLAMMATION I83.12 - VARICOSE VEINS OF LEFT LOWER EXTREMITY WITH INFLAMMATION
--- NOTE | 2016-05-12 12:26 | PN ---
Progress Note (short form) - Note Progress Note: Renal Consult for LISA/CKD Stage 5 This is a 60 year old gentleman with PMhx of ESRD (recently started on dialysis) , CAD s/p CABG, DM Type 2, Depression, CHF who with LE weakness s/p recent fall and wound on right foot. Pt says that Sunday at home he felt as if his legs gave out on him and fell at home. He also has a wound on his foot that has been there for some time. He does report GUTIERREZ and 10lb weight gain since last discharge. Denies any Chest pain. + SOB. No N/V/D. Has been tolerating outpatient HD well, BP has been marginal. PMhx: As above Allergies: As listed in EMR Family Hx: NC Social Hx: Former smoker ROS: As per HPI all other pertinent ros negative Home Meds: Home Medications Medication Instructions Recorded Apixaban [Eliquis] 2.5 mg PO BID 05/11/16 Cholecalciferol (Vitamin D3) 1,000 unit PO DAILY 05/11/16 [Vitamin D3 -] Diltiazem [Cardizem -] 30 mg PO TID 05/11/16 Fenofibrate Nanocrystallized 48 mg PO DAILY 05/11/16 [Fenofibrate] Furosemide [Lasix] 80 mg PO BID 05/11/16 Hydralazine HCl [Apresoline -] 25 mg PO BID 05/11/16 Isosorbide Dinitrate [Isordil -] 10 mg PO DAILY 05/11/16 Lovastatin [Altoprev] 40 mg PO DAILY 05/11/16 Metoprolol Succinate [Toprol Xl] 100 mg PO BID 05/11/16 Sertraline HCl 50 mg PO DAILY 05/11/16 Sitagliptin Phosphate [Januvia] 25 mg PO DAILY 05/11/16 Tramadol HCl 50 mg PO BID 05/11/16 Trazodone HCl 100 mg PO BID 05/11/16 Valsartan [Diovan] 80 mg PO DAILY 05/11/16 Gen: awake and alert HEENT: NC/AT, MMM, No JVD CVS: RRR, No M/R Lungs: CTA, no rales or wheeze Abd: soft NT/ND Ext: Trace edema in LE. + brusing on right thigh. Access: Right IJ tunneled catheter Neuro: No focal defects CBC, BMP 05/12/16 05:50 05/12/16 05:50 Laboratory Tests 05/11/16 05/12/16 05/12/16 13:20 05:50 05:50 INR 1.59 H Calcium 9.0 Creatine Kinase 44 Troponin I 0.03 D Albumin 3.0 L Current Medications Apixaban (Eliquis -) 2.5 mg PO BID [facility] Last Admin: 05/12/16 09:21 Dose: 2.5 mg Atorvastatin Calcium (Lipitor -) 10 mg PO HS [facility] Last Admin: 05/11/16 23:56 Dose: 10 mg Cholecalciferol (Vitamin D3 -) 1,000 unit PO DAILY [facility] Last Admin: 05/12/16 09:29 Dose: 1,000 unit Fenofibric Acid (Trilipix -) 45 mg PO DAILY [facility] Last Admin: 05/12/16 11:30 Dose: 45 mg Furosemide (Lasix -) 80 mg PO BID [facility] Last Admin: 05/12/16 09:21 Dose: 80 mg Vancomycin HCl 1,000 mg/ (Dextrose) 250 mls @ 250 mls/hr IVPB BID [facility] PRN Reason: Protocol Metoprolol Succinate (Toprol Xl -) 100 mg PO BID [facility] Last Admin: 05/12/16 09:26 Dose: 100 mg Morphine Sulfate (Morphine Injection -) 4 mg IVPUSH Q6H PRN PRN Reason: PAIN Last Admin: 05/12/16 06:35 Dose: 4 mg Sertraline HCl (Zoloft -) 50 mg PO DAILY [facility] Last Admin: 05/12/16 09:28 Dose: 50 mg Sitagliptin Phosphate (Januvia -) 25 mg PO ACBK [facility] Last Admin: 05/12/16 06:26 Dose: 25 mg A/P 60 year old gentleman with PMhx of ESRD (recently started on dialysis), CAD s/p CABG, DM Type 2, Depression, CHF who with LE weakness s/p recent fall and wound on right foot. #ESRD on HD with fluid overload s/p HD yesterday with 1.8kg UF given GUTIERREZ and fluid overload will plan to do isolated UF today with goal of 1.5- 2L removal will continue HD on TTS schedule dose all meds for intermittent HD Change Lasix to Toresemide 80mg Daily Start Flomax 0.4mg QHS Hold ARB given low BP #LE weakness Chcek Phos levels Physical therapy fall percautions #LE wound Vascular Sx follow up Wound care follow up Continue Empiric Abx, follow up wound cultures #DM Continue current meds #CHF/Afib Cardiology following Continue Beta Carlota Thank you Will follow Won Weiss DO
[2016-05-12 13:03] LABS: PHOSPHOROUS 7.2 mg/dl (2.5-4.6)
--- NOTE | 2016-05-12 13:21 | PN ---
Progress Note (short form) - Note Progress Note: ID Consult dictated Cellulitis LE L>R L foot ulcers Ischemic L 4th toe Chronic venous stasis dermatitis ESRD Hx MRSA sternal wound infection 2006 Await c/s Empiric ceftriaxone / vancomycin Surgical evaluation
[2016-05-12] MEDS: CEFTRIAXONE 50 ML IVPB SCH (13:29)
--- NOTE | 2016-05-12 14:38 | CONS ---
DATE OF CONSULTATION: DATE OF DICTATION: 05/12/2016 HISTORY OF PRESENT ILLNESS: The patient is a 60-year-old male with a history of end-stage renal disease on hemodialysis evaluated for cellulitis of the lower extremities bilaterally. The patient reports that approximately a week ago, he had twisted his left foot and had sustained an injury. He subsequently developed worsening erythema, warmth, and swelling involving both lower extremities, left greater than right. He was evaluated in the emergency room where he was diagnosed with cellulitis. He was empirically treated with vancomycin and admitted to the hospital. He is now noted to have ulcerations present on the left great toe. He denies any purulent drainage. He denies any associated fever or chills. A Doppler examination was performed of the lower extremities and was negative for DVT. PAST MEDICAL HISTORY: Positive for end-stage renal disease on hemodialysis, recently started on hemodialysis approximately 1 month ago, and hyperlipidemia, hypertension, coronary artery disease, diabetes mellitus, BPH, depression. PAST SURGICAL HISTORY: Status post coronary artery bypass graft complicated by sternal wound infection, MRSA (2009). ALLERGIES: To NEURONTIN, LISINOPRIL, PREGABALIN. SOCIAL HISTORY: He lives at home. He is a former smoker. SYSTEMS REVIEW: Neurologic: No loss of consciousness, seizure activity, or focal weakness. Cardiac: Negative for chest pain or palpitations. Respiratory: Negative for cough or sputum production. Gastrointestinal: Negative for vomiting or diarrhea. Genitourinary: As per HPI. LABORATORY DATA: White count on admission 13.9 presently 10.4, hematocrit 32.2, platelet count 297. BUN 51, creatinine 6.2. Chest x-ray negative for acute infiltrate. PHYSICAL EXAMINATION: General: He is out of bed to chair. He is in no acute distress. Vital signs: Temperature 97.9, blood pressure 115/51, pulse 100 and regular, respirations 20 per minute. HEENT: Sclerae anicteric. Heart: Heart sounds S1, S2. Lungs: Clear bilaterally. No rhonchi, rales, or wheezing. Abdomen: Obese, soft, nontender. No palpable liver or spleen. Extremities: Examination of the lower extremities, he has bilateral lower extremity edema. There is bilateral lower extremity stasis dermatitis. Examination of the left lower extremity, there are ulcerations present over the plantar and dorsal aspects of the left great toe. There is confluent erythema which extends from the foot proximally to the distal left lower extremity below the knee. There is erythema, warmth, and swelling to a lesser degree of the right lower extremity. No lymphangitic streaking is noted. Ischemic changes noted of the left 4th toe with cyanosis diffusely of the 4th toe. IMPRESSION: 1. Cellulitis lower extremities bilaterally, left greater than right. 2. Nonhealing left diabetic foot ulcers. 3. Ischemic left 4th toe. 4. Chronic venous stasis dermatitis. 5. End-stage renal disease on hemodialysis. 6. History of methicillin-resistant Staphylococcus aureus sternal wound infection. Await cultures, empiric antibiotic coverage with ceftriaxone and vancomycin, vancomycin adjusted for renal failure, local wound care, surgical evaluation. Will follow. Thank you for the kind referral. JOSEFA FERNANDO M.D. [id number]
[2016-05-12] MEDS: ATORVASTATIN CA 10 MG TABLET (FP) PO SCH (21:16)
--- NOTE | 2016-05-12 22:12 | PN ---
Progress Note, Physician - Current Medication List Current Medications: Active Medications Apixaban (Eliquis -) 2.5 mg PO BID [facility] Last Admin: 05/12/16 21:14 Dose: 2.5 mg Atorvastatin Calcium (Lipitor -) 10 mg PO HS [facility] Last Admin: 05/12/16 21:16 Dose: 10 mg Cholecalciferol (Vitamin D3 -) 1,000 unit PO DAILY [facility] Last Admin: 05/12/16 09:29 Dose: 1,000 unit Epoetin Campos (Epogen -) 2,000 units IVPUSH ONCE ONE Stop: 05/13/16 06:01 Fenofibric Acid (Trilipix -) 45 mg PO DAILY [facility] Last Admin: 05/12/16 11:30 Dose: 45 mg Furosemide (Lasix -) 80 mg PO BID [facility] Last Admin: 05/12/16 21:15 Dose: 80 mg Vancomycin HCl 1,000 mg/ (Dextrose) 250 mls @ 250 mls/hr IVPB ONCE ONE PRN Reason: Protocol Stop: 05/13/16 08:59 Ceftriaxone Sodium (Rocephin 1gm Ivpb (Pre-Docked)) 50 mls @ 100 mls/hr IVPB DAILY [facility] Last Admin: 05/12/16 13:29 Dose: 100 mls/hr Metoprolol Succinate (Toprol Xl -) 100 mg PO BID [facility] Last Admin: 05/12/16 21:14 Dose: 100 mg Morphine Sulfate (Morphine Injection -) 4 mg IVPUSH Q6H PRN PRN Reason: PAIN Last Admin: 05/12/16 20:15 Dose: 4 mg Sertraline HCl (Zoloft -) 50 mg PO DAILY [facility] Last Admin: 05/12/16 09:28 Dose: 50 mg Sitagliptin Phosphate (Januvia -) 25 mg PO ACBK [facility] Last Admin: 05/12/16 06:26 Dose: 25 mg - Objective Vital Signs: Vital Signs Temperature 97.3 F L 05/12/16 18:00 Pulse Rate 96 H 05/12/16 18:00 Respiratory Rate 16 05/12/16 21:00 Blood Pressure 103/47 05/12/16 18:00 O2 Sat by Pulse Oximetry (%) 95 05/12/16 21:00 Labs: CBC, BMP 05/12/16 05:50 05/12/16 05:50 INR, PTT INR 1.59 (0.82-1.09) H 05/11/16 13:20
[2016-05-13] MEDS: morphine CARPU-JECT 2 MG/1 ML DISP.SYRIN IVPUSH PRN ×3 (00:13→20:40)
[2016-05-13] MEDS: sitaGLIPtin PHOSPHATE 25 MG TABLET (FP) PO SCH (06:19)
[2016-05-13] MEDS: FUROSEMIDE 40 MG TABLET (FP) PO SCH ×2 (06:19→13:10)
[2016-05-13] MEDS: VANCOMYCIN 1,000 MG in DEXTROSE 5%-WATER - 250 ML IVPB SCH ×2 (07:47→07:48)
[2016-05-13] MEDS ORDERED: EPOETIN ALFA 2,000 UNITS/1 ML VIAL IVPUSH ONE (09:00)
[2016-05-13] MEDS ORDERED: VANCOMYCIN 1 GRAM (PRE-DOCKED) 250 ML IVPB ONE (10:30)
--- NOTE | 2016-05-13 11:30 | PN ---
Progress Note, Physician History of Present Illness: No complaints On HD this AM No palps or dyspnea - Current Medication List Current Medications: Active Medications Apixaban (Eliquis -) 2.5 mg PO BID [facility] Last Admin: 05/12/16 21:14 Dose: 2.5 mg Atorvastatin Calcium (Lipitor -) 10 mg PO HS [facility] Last Admin: 05/12/16 21:16 Dose: 10 mg Cholecalciferol (Vitamin D3 -) 1,000 unit PO DAILY [facility] Last Admin: 05/12/16 09:29 Dose: 1,000 unit Fenofibric Acid (Trilipix -) 45 mg PO DAILY [facility] Last Admin: 05/12/16 11:30 Dose: 45 mg Furosemide (Lasix -) 80 mg PO BIDLASIX [facility] Last Admin: 05/13/16 06:19 Dose: 80 mg Vancomycin HCl (Vancomycin (Pre-Docked)) 250 mls @ 166.667 mls/hr IVPB ONCE ONE PRN Reason: Protocol Stop: 05/13/16 11:59 Last Admin: 05/13/16 10:22 Dose: 166.667 mls/hr Ceftriaxone Sodium (Rocephin 1gm Ivpb (Pre-Docked)) 50 mls @ 100 mls/hr IVPB DAILY [facility] Last Admin: 05/12/16 13:29 Dose: 100 mls/hr Metoprolol Succinate (Toprol Xl -) 100 mg PO BID [facility] Last Admin: 05/12/16 21:14 Dose: 100 mg Morphine Sulfate (Morphine Injection -) 4 mg IVPUSH Q6H PRN PRN Reason: PAIN Last Admin: 05/13/16 09:40 Dose: 4 mg Sertraline HCl (Zoloft -) 50 mg PO DAILY [facility] Last Admin: 05/12/16 09:28 Dose: 50 mg Sevelamer Carbonate (Renvela -) 1,600 mg PO TIDCM [facility] Sitagliptin Phosphate (Januvia -) 25 mg PO ACBK [facility] Last Admin: 05/13/16 06:19 Dose: Not Given - Objective Vital Signs: Vital Signs Temperature 97.9 F 05/12/16 22:00 Pulse Rate 106 H 05/13/16 10:00 Respiratory Rate 16 05/13/16 10:00 Blood Pressure 116/65 05/13/16 10:00 O2 Sat by Pulse Oximetry (%) 95 05/12/16 21:00 Constitutional: Yes: No Distress, Calm Eyes: Yes: WNL HENT: Yes: WNL Neck: Yes: WNL Cardiovascular: Yes: Pulse Irregular Respiratory: Yes: CTA Bilaterally Gastrointestinal: Yes: WNL Extremities: Yes: WNL Edema: LLE: 1+, RLE: 1+ Labs: CBC, BMP 05/12/16 05:50 05/12/16 05:50 INR, PTT INR 1.59 (0.82-1.09) H 05/11/16 13:20 Assessment/Plan a/p: 60 m hx htn, hld, dm, cabg (04/2006), ESRD, afib/flutter, syst chf, esrd on HD, here with foot pain. chronic syst chf: -vol status stable, no signs of chf at present -cont po lasix 80 bid and HD for vol management -recent echo 03/2016 here similar to 09/2015, shows mod reduced lvef -con't bb, will hold diovan 80 qd, hydralazine 25 bid, and isordil 10 qd given low bp possibly from sepsis, resume when bp improved -stopped diltiazem last admit here in light of cardiomyopathy afib/flutter: -Remains in AFib at 100, cont toprol, monitor on tele for now -cont eliquis 2.5 bid -stopped diltiazem last admit here in light of cardiomyopathy ESRD -cont hd per renal htn: -bp low here, possibly due to infection/cellulitis so will hold diovan, nitrate , hydralazine for now, resume when bp stable -has been having some dizziness at home, possibly due to these low bp's in setting of infection, monitor sxs while here hld: -cont statin cad s/p cabg: -ce's neg x2, EKG without ischemic changes, no signs chf -recent echo w/o sig change from prior -cont statin, bb, ac le cellulitis, possible gangrene: -plans per surgery, ID -ok to hold eliquis if needed for debridement
[2016-05-13] MEDS: METOPROLOL SUCCINATE 100 MG TAB.SR.24H (FP) PO SCH ×2 (12:33→21:07)
[2016-05-13] MEDS: SERTRALINE HCL 50 MG TABLET (FP) PO SCH (12:34)
[2016-05-13] MEDS: APIXABAN 2.5 MG TABLET PO SCH ×2 (12:35→21:07)
[2016-05-13] MEDS: CEFTRIAXONE 50 ML IVPB SCH (12:35)
[2016-05-13] MEDS: SEVELAMER CARBONATE 800 MG TAB (FP) PO SCH ×2 (12:35→17:38)
[2016-05-13] MEDS ORDERED: PT OWN MED DRAWER 7, Y5N ONE ×2 (12:38→21:25)
[2016-05-13] MEDS: FENOFIBRIC ACID 45 MG CAP PO SCH (12:39)
[2016-05-13] MEDS: CHOLECALCIFEROL (VITAMIN D3) 400 UNIT TABLET (FP) PO SCH (12:39)
[2016-05-13 12:45] LABS: BILIRUBIN,TOTAL 0.6 mg/dL (0.2-1.0); MAGNESIUM 1.9 mg/dL (1.8-2.4); TOT PROT 6.9 g/dl (6.4-8.2)
--- NOTE | 2016-05-13 12:46 | PN ---
Progress Note (short form) - Note Progress Note: Renal Follow up for ESRD Pt seen and examined at during HD this am PT tolerated HD well with 3kg UF pt was sitting at the edge of the bed continues to report sob when laying in bed has pain in foot Vital Signs Temperature 98.0 F 05/13/16 12:32 Pulse Rate 102 H 05/13/16 12:32 Respiratory Rate 20 05/13/16 12:32 Blood Pressure 103/62 05/13/16 12:32 O2 Sat by Pulse Oximetry (%) 95 05/12/16 21:00 Intake & Output 05/10/16 05/11/16 05/12/16 05/13/16 23:59 23:59 23:59 23:59 Intake Total 1330 30 Output Total 700 600 Balance 630 -570 Weight 205 lb 211 lb 213 lb 12.8 oz Gen: awake and alert CVS: RRR, No M/R Lungs: CTA, no rales or wheeze Abd: soft NT/ND Ext: Trace edema in LE. + brusing on right thigh. Access: Right IJ tunneled catheter CBC, BMP 05/12/16 05:50 BMP pending Current Medications Apixaban (Eliquis -) 2.5 mg PO BID [facility] Last Admin: 05/13/16 12:35 Dose: 2.5 mg Atorvastatin Calcium (Lipitor -) 10 mg PO HS [facility] Last Admin: 05/12/16 21:16 Dose: 10 mg Cholecalciferol (Vitamin D3 -) 1,000 unit PO DAILY [facility] Last Admin: 05/13/16 12:39 Dose: 1,000 unit Fenofibric Acid (Trilipix -) 45 mg PO DAILY [facility] Last Admin: 05/13/16 12:39 Dose: 45 mg Furosemide (Lasix -) 80 mg PO BIDLASIX [facility] Last Admin: 05/13/16 06:19 Dose: 80 mg Ceftriaxone Sodium (Rocephin 1gm Ivpb (Pre-Docked)) 50 mls @ 100 mls/hr IVPB DAILY [facility] Last Admin: 05/13/16 12:35 Dose: 100 mls/hr Metoprolol Succinate (Toprol Xl -) 100 mg PO BID [facility] Last Admin: 05/13/16 12:33 Dose: Not Given Morphine Sulfate (Morphine Injection -) 4 mg IVPUSH Q6H PRN PRN Reason: PAIN Last Admin: 05/13/16 09:40 Dose: 4 mg Sertraline HCl (Zoloft -) 50 mg PO DAILY [facility] Last Admin: 05/13/16 12:34 Dose: 50 mg Sevelamer Carbonate (Renvela -) 1,600 mg PO TIDCM [facility] Last Admin: 05/13/16 12:35 Dose: 1,600 mg Sitagliptin Phosphate (Januvia -) 25 mg PO ACBK [facility] Last Admin: 05/13/16 06:19 Dose: Not Given A/P 60 year old gentleman with PMhx of ESRD (recently started on dialysis), CAD s/p CABG, DM Type 2, Depression, CHF who with LE weakness s/p recent fall and wound on right foot. 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
[2016-05-13 12:51] LABS: CREATININE 7.4 mg/dL (0.7-1.3)
--- NOTE | 2016-05-13 13:01 | CONSULT ---
Consult - History of Present Illness History of Present Illness: 60 yo male with blisters and non-healing wounds left toes. Also has discoloration of right 4th finger which comes and goes. Patient is a former smoker with NIDDM and ESRD recently started HD. He states he has had pain in feet for some time and recently developed wounds on toes. He has chronic SOB and has trouble lying flat in bed. 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 Neuropathy Cardio/Vascular: Yes: AFIB, CAD, CHF Pulmonary: Yes: COPD Renal/: Yes: Renal Failure Endocrine: Yes: Diabetes Mellitus - Past Surgical History Past Surgical History: Yes: CABG - Alcohol/Substance Use Hx Alcohol Use: No - Smoking History Smoking history: Former smoker Have you smoked in the past 12 months: No Aproximately how many cigarettes per day: 0 If you are a former smoker, when did you quit?: 2000 Home Medications - Allergies Allergies/Adverse Reactions: Allergies Allergy/AdvReac Type Severity Reaction Status Date / Time gabapentin Allergy Severe Verified 05/08/16 11:22 lisinopril Allergy Severe TONGUE Verified 05/08/16 11:22 SWELLING pregabalin [From Lyrica] Allergy Severe Swelling Verified 05/08/16 11:22 - Home Medications Home Medications: Ambulatory Orders Apixaban [Eliquis] 2.5 mg PO BID 05/11/16 Cholecalciferol (Vitamin D3) [Vitamin D3 -] 1,000 unit PO DAILY 05/11/16 Diltiazem [Cardizem -] 30 mg PO TID 05/11/16 Fenofibrate Nanocrystallized [Fenofibrate] 48 mg PO DAILY 05/11/16 Furosemide [Lasix] 80 mg PO BID 05/11/16 Hydralazine HCl [Apresoline -] 25 mg PO BID 05/11/16 Isosorbide Dinitrate [Isordil -] 10 mg PO DAILY 05/11/16 Lovastatin [Altoprev] 40 mg PO DAILY 05/11/16 Metoprolol Succinate [Toprol Xl] 100 mg PO BID 05/11/16 Sertraline HCl 50 mg PO DAILY 05/11/16 Sitagliptin Phosphate [Januvia] 25 mg PO DAILY 05/11/16 Tramadol HCl 50 mg PO BID 05/11/16 Trazodone HCl 100 mg PO BID 05/11/16 Valsartan [Diovan] 80 mg PO DAILY 05/11/16 Physical Exam Vital Signs: Vital Signs Temperature 98.0 F 05/13/16 12:32 Pulse Rate 102 H 05/13/16 12:32 Respiratory Rate 20 05/13/16 12:32 Blood Pressure 103/62 05/13/16 12:32 O2 Sat by Pulse Oximetry (%) 95 05/12/16 21:00 Constitutional: Yes: Anxious Eyes: Yes: WNL HENT: Yes: WNL Neck: Yes: WNL, Supple Cardiovascular: Yes: Regular Rate and Rhythm Respiratory: Yes: WNL Gastrointestinal: Yes: Normal Bowel Sounds, Ascites, Distention Extremities: Yes: Other (Right 4th finger cyanotic but no skin changes noted. Left toes with loose epithelium and intact blisters. Erythema of dorsal foot.) Edema: Yes Edema: LLE: 2+, RLE: 2+ Peripheral Pulses WNL: No (No palpable pulses in feet or right wrist) Labs: CBC, BMP 05/12/16 05:50 05/13/16 12:20 Problem List - Problems (1) Arteriosclerosis of arteries of extremities Assessment/Plan: Diffuse arterial disease with calcification seen on recent non-contrast CT. Left foot wounds appear to be due to blisters related to swelling but PAD is likley also a factor. Right 4th finger discolored without evidence of tissue loss. Unclear if this is a manifestation of small vessel occlusive disease or arterial embolism. Plan non-invasive imaging with ultrasound and then CTA if stenoses identified.
[2016-05-13] MEDS: ATORVASTATIN CA 10 MG TABLET (FP) PO SCH (21:07)
[2016-05-13] MEDS ORDERED: MAG HYDROX/AL HYDROX/SIMETH 30 ML UNIT-DOSE CUP PO ONE (22:30)
--- NOTE | 2016-05-13 23:13 | PN ---
Progress Note, Physician History of Present Illness: No new complaints - Current Medication List Current Medications: Active Medications Apixaban (Eliquis -) 2.5 mg PO BID [facility] Last Admin: 05/13/16 21:07 Dose: 2.5 mg Atorvastatin Calcium (Lipitor -) 10 mg PO HS [facility] Last Admin: 05/13/16 21:07 Dose: 10 mg Cholecalciferol (Vitamin D3 -) 1,000 unit PO DAILY [facility] Last Admin: 05/13/16 12:39 Dose: 1,000 unit Fenofibric Acid (Trilipix -) 45 mg PO DAILY [facility] Last Admin: 05/13/16 12:39 Dose: 45 mg Furosemide (Lasix -) 80 mg PO BIDLASIX [facility] Last Admin: 05/13/16 13:10 Dose: Not Given Ceftriaxone Sodium (Rocephin 1gm Ivpb (Pre-Docked)) 50 mls @ 100 mls/hr IVPB DAILY [facility] Last Admin: 05/13/16 12:35 Dose: 100 mls/hr Metoprolol Succinate (Toprol Xl -) 100 mg PO BID [facility] Last Admin: 05/13/16 21:07 Dose: 100 mg Morphine Sulfate (Morphine Injection -) 4 mg IVPUSH Q6H PRN PRN Reason: PAIN Last Admin: 05/13/16 20:40 Dose: 4 mg Sertraline HCl (Zoloft -) 50 mg PO DAILY [facility] Last Admin: 05/13/16 12:34 Dose: 50 mg Sevelamer Carbonate (Renvela -) 1,600 mg PO TIDCM [facility] Last Admin: 05/13/16 17:38 Dose: 1,600 mg Sitagliptin Phosphate (Januvia -) 25 mg PO ACBK [facility] Last Admin: 05/13/16 06:19 Dose: Not Given - Objective Vital Signs: Vital Signs Temperature 98.8 F 05/13/16 17:00 Pulse Rate 105 H 05/13/16 17:00 Respiratory Rate 20 05/13/16 17:00 Blood Pressure 123/54 05/13/16 17:00 O2 Sat by Pulse Oximetry (%) 96 05/13/16 12:30 Constitutional: Yes: Well Nourished Neck: Yes: Supple Cardiovascular: Yes: WNL, Regular Rate and Rhythm Respiratory: Yes: WNL, Regular, CTA Bilaterally Gastrointestinal: Yes: WNL, Normal Bowel Sounds, Soft Extremities: Yes: Other ((+) lt foot erythema) Labs: CBC, BMP 05/12/16 05:50 05/13/16 12:20 INR, PTT INR 1.59 (0.82-1.09) H 05/11/16 13:20 Problem List - Problems (1) Afib Code(s): I48.91 - UNSPECIFIED ATRIAL FIBRILLATION (3) Cellulitis of foot Code(s): L03.119 - CELLULITIS OF UNSPECIFIED PART OF LIMB (4) HTN (hypertension) Code(s): I10 - ESSENTIAL (PRIMARY) HYPERTENSION (5) Congestive heart failure Code(s): I50.9 - HEART FAILURE, UNSPECIFIED Qualifiers: Congestive heart failure type: systolic Congestive heart failure chronicity: acute on chronic Qualified Code(s): I50.23 - Acute on chronic systolic (congestive) heart failure (6) Diabetes Code(s): E11.9 - TYPE 2 DIABETES MELLITUS WITHOUT COMPLICATIONS (7) End stage renal disease Code(s): N18.6 - END STAGE RENAL DISEASE
[2016-05-14] MEDS ORDERED: dilTIAZem HCL 50 MG/10 ML - 10 ML VIAL IVPUSH PRN (02:55)
[2016-05-14] MEDS: morphine CARPU-JECT 2 MG/1 ML DISP.SYRIN IVPUSH PRN ×4 (04:02→23:51)
[2016-05-14] MEDS: FUROSEMIDE 40 MG TABLET (FP) PO SCH ×2 (06:12→13:23)
[2016-05-14] MEDS: sitaGLIPtin PHOSPHATE 25 MG TABLET (FP) PO SCH (06:15)
[2016-05-14] MEDS: SEVELAMER CARBONATE 800 MG TAB (FP) PO SCH ×3 (08:02→19:35)
[2016-05-14 08:13] LABS: BASOPHIL 0.7 % (0-2.0); EOSINOPHIL 0.4 % (0-4.5); MCH 28.9 pg (25.7-33.7); MCHC 32.1 g/dl (32.0-35.9); MEAN CELL VOLUME 89.9 fl (80-96); MEAN PLT VOLUME 7.6 fl (7.5-11.1); NEUTROPHILS 81.5 % (42.8-82.8); PLATELET COUNT 323 K/MM3 (134-434); RDW 15.7 % (11.9-15.9); WHITE BLOOD COUNT 13.7 K/mm3 (4.0-10.0)
[2016-05-14 08:39] LABS: CALCIUM 8.9 mg/dL (8.5-10.1)
[2016-05-14 08:43] LABS: ALBUMIN 3.1 g/dl (3.4-5.0); BILIRUBIN,TOTAL 0.7 mg/dL (0.2-1.0); PHOSPHOROUS 6.9 mg/dL (2.5-4.9); TOT PROT 7.2 g/dl (6.4-8.2)
[2016-05-14] MEDS: SERTRALINE HCL 50 MG TABLET (FP) PO SCH (09:18)
[2016-05-14] MEDS: METOPROLOL SUCCINATE 100 MG TAB.SR.24H (FP) PO SCH ×2 (09:18→21:37)
[2016-05-14] MEDS: APIXABAN 2.5 MG TABLET PO SCH ×2 (09:19→21:37)
[2016-05-14] MEDS: CEFTRIAXONE 50 ML IVPB SCH (09:27)
[2016-05-14] MEDS ORDERED: CHOLECALCIFEROL (VITAMIN D3) 1,000 UNIT TABLET (FP) PO SCH (11:08)
--- NOTE | 2016-05-14 12:01 | PN ---
Progress Note, Physician History of Present Illness: Tele with RVR overnight (looks like aflutter to 150/min at 04:09), given 10mg IV dilt Now in Afib at 90s. No symptoms when this occured - Current Medication List Current Medications: Active Medications Apixaban (Eliquis -) 2.5 mg PO BID [facility] Last Admin: 05/14/16 09:19 Dose: 2.5 mg Atorvastatin Calcium (Lipitor -) 10 mg PO HS [facility] Last Admin: 05/13/16 21:07 Dose: 10 mg Cholecalciferol (Vitamin D3 -) 1,000 unit PO DAILY [facility] Fenofibric Acid (Trilipix -) 45 mg PO DAILY [facility] Last Admin: 05/13/16 12:39 Dose: 45 mg Furosemide (Lasix -) 80 mg PO BIDLASIX [facility] Last Admin: 05/14/16 06:12 Dose: 80 mg Ceftriaxone Sodium (Rocephin 1gm Ivpb (Pre-Docked)) 50 mls @ 100 mls/hr IVPB DAILY [facility] Last Admin: 05/14/16 09:27 Dose: 100 mls/hr Metoprolol Succinate (Toprol Xl -) 100 mg PO BID [facility] Last Admin: 05/14/16 09:18 Dose: 100 mg Morphine Sulfate (Morphine Injection -) 4 mg IVPUSH Q6H PRN PRN Reason: PAIN Last Admin: 05/14/16 09:20 Dose: 4 mg Sertraline HCl (Zoloft -) 50 mg PO DAILY [facility] Last Admin: 05/14/16 09:18 Dose: 50 mg Sevelamer Carbonate (Renvela -) 1,600 mg PO TIDCM [facility] Last Admin: 05/14/16 11:09 Dose: 1,600 mg Sitagliptin Phosphate (Januvia -) 25 mg PO ACBK [facility] Last Admin: 05/14/16 06:15 Dose: 25 mg - Objective Vital Signs: Vital Signs Temperature 98.1 F 05/14/16 07:57 Pulse Rate 101 H 05/14/16 07:57 Respiratory Rate 20 05/14/16 07:57 Blood Pressure 125/65 05/14/16 07:57 O2 Sat by Pulse Oximetry (%) 94 L 05/14/16 08:05 Constitutional: Yes: No Distress Eyes: Yes: WNL HENT: Yes: WNL Neck: Yes: WNL Cardiovascular: Yes: Pulse Irregular Respiratory: Yes: WNL, CTA Bilaterally Gastrointestinal: Yes: WNL Edema: Yes Labs: CBC, BMP 05/14/16 06:00 05/14/16 06:00 INR, PTT INR 1.59 (0.82-1.09) H 05/11/16 13:20 Assessment/Plan a/p: 60 m hx htn, hld, dm, cabg (04/2006), ESRD, afib/flutter, syst chf, esrd on HD, here with foot pain. chronic syst chf: -vol status stable, no signs of chf at present -cont po lasix 80 bid and HD for vol management -recent echo 03/2016 here similar to 09/2015, shows mod reduced lvef -con't bb, will hold diovan 80 qd, hydralazine 25 bid, and isordil 10 qd given low bp possibly from sepsis, resume when bp improved -stopped diltiazem last admit here in light of cardiomyopathy -Would try to remove more fluid with HD afib/flutter: -Remains in AFib at 100, cont toprol, monitor on tele for now -cont eliquis 2.5 bid -stopped diltiazem last admit here in light of cardiomyopathy, but if he has recurrent Aflutter with RVR again he may need to go back on Cardizem or consider Amiodarone. ESRD -cont hd per renal htn: -bp low here, possibly due to infection/cellulitis so will hold diovan, nitrate , hydralazine for now, resume when bp stable -has been having some dizziness at home, possibly due to these low bp's in setting of infection, monitor sxs while here hld: -cont statin cad s/p cabg: -ce's neg x2, EKG without ischemic changes, no signs chf -recent echo w/o sig change from prior -cont statin, bb, ac le cellulitis, possible gangrene: -plans per surgery, ID -ok to hold eliquis if needed for debridement
[2016-05-14] MEDS: CHOLECALCIFEROL (VITAMIN D3) 1,000 UNIT TABLET (FP) PO SCH (13:24)
--- NOTE | 2016-05-14 15:37 | PN ---
Progress Note, Physician History of Present Illness: C/O intermittant L foot pain No fever/ chills - Current Medication List Current Medications: Active Medications Apixaban (Eliquis -) 2.5 mg PO BID [facility] Last Admin: 05/14/16 09:19 Dose: 2.5 mg Atorvastatin Calcium (Lipitor -) 10 mg PO HS [facility] Last Admin: 05/13/16 21:07 Dose: 10 mg Cholecalciferol (Vitamin D3 -) 1,000 unit PO DAILY [facility] Last Admin: 05/14/16 13:24 Dose: 1,000 unit Fenofibric Acid (Trilipix -) 45 mg PO DAILY [facility] Last Admin: 05/13/16 12:39 Dose: 45 mg Furosemide (Lasix -) 80 mg PO BIDLASIX [facility] Last Admin: 05/14/16 13:23 Dose: 80 mg Ceftriaxone Sodium (Rocephin 1gm Ivpb (Pre-Docked)) 50 mls @ 100 mls/hr IVPB DAILY [facility] Last Admin: 05/14/16 09:27 Dose: 100 mls/hr Metoprolol Succinate (Toprol Xl -) 100 mg PO BID [facility] Last Admin: 05/14/16 09:18 Dose: 100 mg Morphine Sulfate (Morphine Injection -) 4 mg IVPUSH Q6H PRN PRN Reason: PAIN Last Admin: 05/14/16 14:50 Dose: 4 mg Sertraline HCl (Zoloft -) 50 mg PO DAILY [facility] Last Admin: 05/14/16 09:18 Dose: 50 mg Sevelamer Carbonate (Renvela -) 1,600 mg PO TIDCM [facility] Last Admin: 05/14/16 11:09 Dose: 1,600 mg Sitagliptin Phosphate (Januvia -) 25 mg PO ACBK [facility] Last Admin: 05/14/16 06:15 Dose: 25 mg - Objective Vital Signs: Vital Signs Temperature 97.8 F 05/14/16 15:06 Pulse Rate 98 H 05/14/16 13:22 Respiratory Rate 20 05/14/16 13:22 Blood Pressure 128/69 05/14/16 13:22 O2 Sat by Pulse Oximetry (%) 94 L 05/14/16 08:05 Constitutional: Yes: No Distress Eyes: Yes: Conjunctiva Clear Cardiovascular: Yes: Regular Rate and Rhythm, S1, S2 Respiratory: Yes: CTA Bilaterally Gastrointestinal: Yes: Normal Bowel Sounds, Soft. No: Tenderness Extremities: Yes: Other (+ venous stasis LE bilaterally + non-healing ulcers L great toe + gangrene L 4th toe) Labs: CBC, BMP 05/14/16 06:00 05/14/16 06:00 INR, PTT INR 1.59 (0.82-1.09) H 05/11/16 13:20 Assessment/Plan Cellulitis LE Non-healing great toe ulcers Gangrene L 4th toe ESRD Chronic venous stasis dermatitis Continue ceftriaxone Redose vancomycin Vascular studies
[2016-05-14] MEDS ORDERED: VANCOMYCIN 1 GRAM (PRE-DOCKED) 250 ML IVPB ONE ×2 (16:00→20:00)
[2016-05-14] MEDS: FENOFIBRIC ACID 45 MG CAP PO SCH (19:36)
[2016-05-14] MEDS: ATORVASTATIN CA 10 MG TABLET (FP) PO SCH (21:37)
--- NOTE | 2016-05-14 23:26 | PN ---
Progress Note, Physician - Current Medication List Current Medications: Active Medications Apixaban (Eliquis -) 2.5 mg PO BID [facility] Last Admin: 05/14/16 21:37 Dose: 2.5 mg Atorvastatin Calcium (Lipitor -) 10 mg PO HS [facility] Last Admin: 05/14/16 21:37 Dose: 10 mg Cholecalciferol (Vitamin D3 -) 1,000 unit PO DAILY [facility] Last Admin: 05/14/16 13:24 Dose: 1,000 unit Fenofibric Acid (Trilipix -) 45 mg PO DAILY [facility] Last Admin: 05/14/16 19:36 Dose: 45 mg Furosemide (Lasix -) 80 mg PO BIDLASIX [facility] Last Admin: 05/14/16 13:23 Dose: 80 mg Ceftriaxone Sodium (Rocephin 1gm Ivpb (Pre-Docked)) 50 mls @ 100 mls/hr IVPB DAILY [facility] Last Admin: 05/14/16 09:27 Dose: 100 mls/hr Metoprolol Succinate (Toprol Xl -) 100 mg PO BID [facility] Last Admin: 05/14/16 21:37 Dose: 100 mg Morphine Sulfate (Morphine Injection -) 4 mg IVPUSH Q6H PRN PRN Reason: PAIN Last Admin: 05/14/16 14:50 Dose: 4 mg Sertraline HCl (Zoloft -) 50 mg PO DAILY [facility] Last Admin: 05/14/16 09:18 Dose: 50 mg Sevelamer Carbonate (Renvela -) 1,600 mg PO TIDCM [facility] Last Admin: 05/14/16 19:35 Dose: Not Given Sitagliptin Phosphate (Januvia -) 25 mg PO ACBK [facility] Last Admin: 05/14/16 06:15 Dose: 25 mg - Objective Vital Signs: Vital Signs Temperature 98.5 F 05/14/16 17:00 Pulse Rate 127 H 05/14/16 17:00 Respiratory Rate 20 05/14/16 17:00 Blood Pressure 128/68 05/14/16 17:00 O2 Sat by Pulse Oximetry (%) 94 L 05/14/16 08:05 Constitutional: Yes: Well Nourished Neck: Yes: Supple Cardiovascular: Yes: WNL, Regular Rate and Rhythm Respiratory: Yes: WNL, Regular, CTA Bilaterally Gastrointestinal: Yes: WNL, Normal Bowel Sounds, Soft Labs: CBC, BMP 05/14/16 06:00 05/14/16 06:00 INR, PTT INR 1.59 (0.82-1.09) H 05/11/16 13:20 Problem List - Problems (1) Afib Code(s): I48.91 - UNSPECIFIED ATRIAL FIBRILLATION (3) Cellulitis of foot Code(s): L03.119 - CELLULITIS OF UNSPECIFIED PART OF LIMB (4) HTN (hypertension) Code(s): I10 - ESSENTIAL (PRIMARY) HYPERTENSION (5) Congestive heart failure Code(s): I50.9 - HEART FAILURE, UNSPECIFIED Qualifiers: Congestive heart failure type: systolic Congestive heart failure chronicity: acute on chronic Qualified Code(s): I50.23 - Acute on chronic systolic (congestive) heart failure (6) Diabetes Code(s): E11.9 - TYPE 2 DIABETES MELLITUS WITHOUT COMPLICATIONS (7) End stage renal disease Code(s): N18.6 - END STAGE RENAL DISEASE
[2016-05-15] MEDS ORDERED: dilTIAZem HCL 50 MG/10 ML - 10 ML VIAL IVPUSH ONE (05:45)
[2016-05-15] MEDS: sitaGLIPtin PHOSPHATE 25 MG TABLET (FP) PO SCH (06:34)
[2016-05-15] MEDS: FUROSEMIDE 40 MG TABLET (FP) PO SCH ×2 (07:10→18:01)
--- NOTE | 2016-05-15 08:55 | PN ---
Progress Note, Physician Chief Complaint: foot wound History of Present Illness: very sob, even transferring stretcher to bed; ++ orthopnea when tried lay flat for xray these sx's persistent at home since last hosp d/c he says no cp at all no palpit, syncope ex cigs - Current Medication List Current Medications: Active Medications Apixaban (Eliquis -) 2.5 mg PO BID [facility] Last Admin: 05/14/16 21:37 Dose: 2.5 mg Atorvastatin Calcium (Lipitor -) 10 mg PO HS [facility] Last Admin: 05/14/16 21:37 Dose: 10 mg Cholecalciferol (Vitamin D3 -) 1,000 unit PO DAILY [facility] Last Admin: 05/14/16 13:24 Dose: 1,000 unit Fenofibric Acid (Trilipix -) 45 mg PO DAILY [facility] Last Admin: 05/14/16 19:36 Dose: 45 mg Furosemide (Lasix -) 80 mg PO BIDLASIX [facility] Last Admin: 05/15/16 07:10 Dose: Not Given Ceftriaxone Sodium (Rocephin 1gm Ivpb (Pre-Docked)) 50 mls @ 100 mls/hr IVPB DAILY [facility] Last Admin: 05/14/16 09:27 Dose: 100 mls/hr Metoprolol Succinate (Toprol Xl -) 100 mg PO BID [facility] Last Admin: 05/14/16 21:37 Dose: 100 mg Sertraline HCl (Zoloft -) 50 mg PO DAILY [facility] Last Admin: 05/14/16 09:18 Dose: 50 mg Sevelamer Carbonate (Renvela -) 1,600 mg PO TIDCM [facility] Last Admin: 05/14/16 19:35 Dose: Not Given Sitagliptin Phosphate (Januvia -) 25 mg PO ACBK [facility] Last Admin: 05/15/16 06:34 Dose: Not Given - Objective Vital Signs: Vital Signs Temperature 97.5 F L 05/15/16 05:58 Pulse Rate 112 H 05/15/16 05:58 Respiratory Rate 20 05/15/16 05:58 Blood Pressure 115/72 05/15/16 05:58 O2 Sat by Pulse Oximetry (%) 100 05/14/16 21:00 Constitutional: Yes: No Distress, Calm Eyes: No: Sclera Icterus HENT: No: Nasal Congestion Cardiovascular: Yes: Pulse Irregular, S1, S2, Other (PMI non diplaced). No: JVD , Gallop, Murmur Respiratory: Yes: CTA Bilaterally, Diminished (bases). No: Accessory Muscle Use , Rales, Wheezes Gastrointestinal: Yes: Normal Bowel Sounds, Soft. No: Tenderness Musculoskeletal: Yes: Other (No kyphosis) Extremities: No: Cold Edema: Yes (1+ pretib) Integumentary: No: Jaundice Neurological: Yes: Alert, Oriented (x3) Psychiatric: No: Agitated Labs: CBC, BMP 05/14/16 06:00 05/14/16 06:00 INR, PTT INR 1.59 (0.82-1.09) H 05/11/16 13:20 - ....Imaging EKG: Other (tele: AFL to 140s) Assessment/Plan echo 09/2015: mod lve, mild-mod dec lvef, global HK, nl rv, mod-sev mr, sev tr, marixa, nl rvsp echo 03/2016: mild lve, mod dec lvef, ant HK, nl rv size, marixa, mild mr, mod tr, rvsp 40-50 a/p: 60 m hx htn, hld, dm, cabg (04/2006), ESRD, afib/flutter, syst chf, esrd on HD, here with infected foot wound chronic syst chf: -vol status stable, no signs of chf at present -cont po lasix 80 bid and HD for vol management (started 05/12) -recent echo 03/2016 here similar to 09/2015, shows mod reduced lvef--? etiology -pt had not been compliant with f/u with cardio for at least 2-3 yrs, need to obtain records re: prior ischemia w/u -need accurate assessment of AF rate control (r/o tachy-CMP) and burden ( paroxysmal) as outpt -he intends to f/u wtih me in office but hospitalized now at the time of his scheduled f/u visit -wt down 222 to 210 on prior d/c 04/14 -currently 211, no JVD but suspect hi filling pressures given signif sob and orthopnea -d/w'd dr mcghee--will try daily HD as bp tolerates -con't bb -holding diovan 80 qd, hydralazine 25 bid, and isordil 10 qd given low bp possibly from sepsis, resume when bp improved -has had low BPs during HD limiting fluid removal afib/flutter: -not well controlled--HRs to 140s at times -? reactive to decomp chf vs causing it -incr toprol 100 bid to 150 bid -prefer not to hold it on HD days, if bp can tolerate--d/w'd dr mcghee -cannot use dilt with chronic syst chf -low dose digoxin (HD pt) not likely to help here, and hi risk toxicity--can try this next -otherwise, will have to either use amio or consider AVN ablation/PPM if cannot adequately control HRs--monitor tele trend -cont eliquis 2.5 bid (presyncopal consistently following eliquis 5mg doses at home--???)--hope to incr later once chf status and bp drops from HD are stabilized ESRD -cont hd per renal -fluid removal as disc'd above htn: -bp's on low side here, possibly due to infection/cellulitis so holding diovan, nitrate, hydralazine for now, resume when bp stable -related to body equilibrating to recent start of HD -LH/presyncope episodes at home, ? (highly unusual) med effect (eliquis 5mg)-- suspect more likely related to hi chf med burden with intravasc fluid shifts from HD hld: -cont home statin cad s/p cabg: -ce's neg x2, EKG without ischemic changes, no signs chf -recent echo w/o sig change from prior -cont statin, bb, ac le cellulitis, possible gangrene: -plans per surgery, ID -ok to hold eliquis if needed for debridement
[2016-05-15] MEDS: SEVELAMER CARBONATE 800 MG TAB (FP) PO SCH ×3 (08:56→18:01)
[2016-05-15] MEDS ORDERED: PT OWN MED DRAWER 7, Y5N ONE ×3 (09:02→10:56)
[2016-05-15] MEDS: SERTRALINE HCL 50 MG TABLET (FP) PO SCH (09:03)
[2016-05-15] MEDS: APIXABAN 2.5 MG TABLET PO SCH ×2 (09:03→21:02)
[2016-05-15] MEDS: FENOFIBRIC ACID 45 MG CAP PO SCH (09:03)
[2016-05-15] MEDS: METOPROLOL SUCCINATE 100 MG TAB.SR.24H (FP) PO SCH (09:03)
[2016-05-15] MEDS: CHOLECALCIFEROL (VITAMIN D3) 1,000 UNIT TABLET (FP) PO SCH (09:03)
[2016-05-15] MEDS: CEFTRIAXONE 50 ML IVPB SCH (09:05)
[2016-05-15] MEDS ORDERED: MAG HYDROX/AL HYDROX/SIMETH 30 ML UNIT-DOSE CUP PO ONE (10:56)
[2016-05-15] MEDS ORDERED: METOPROLOL SUCCINATE 50 MG TAB.SR.24H (FP) PO ONE (12:45)
[2016-05-15 14:12] LABS: HEP B SURFACE AB Non Reactive (.)
--- NOTE | 2016-05-15 14:21 | PN ---
Progress Note, Physician History of Present Illness: Reports less foot pain No c/o fever/ chills refused CT this am - Current Medication List Current Medications: Active Medications Apixaban (Eliquis -) 2.5 mg PO BID [facility] Last Admin: 05/15/16 09:03 Dose: 2.5 mg Atorvastatin Calcium (Lipitor -) 10 mg PO HS [facility] Last Admin: 05/14/16 21:37 Dose: 10 mg Cholecalciferol (Vitamin D3 -) 1,000 unit PO DAILY [facility] Last Admin: 05/15/16 09:03 Dose: 1,000 unit Epoetin Campos (Epogen -) 2,000 units IVPUSH ONCE ONE Stop: 05/15/16 10:58 Fenofibric Acid (Trilipix -) 45 mg PO DAILY [facility] Last Admin: 05/15/16 09:03 Dose: 45 mg Furosemide (Lasix -) 80 mg PO BIDLASIX [facility] Last Admin: 05/15/16 07:10 Dose: Not Given Ceftriaxone Sodium (Rocephin 1gm Ivpb (Pre-Docked)) 50 mls @ 100 mls/hr IVPB DAILY [facility] Last Admin: 05/15/16 09:05 Dose: 100 mls/hr Metoprolol Succinate (Toprol Xl -) 150 mg PO BID [facility] Sertraline HCl (Zoloft -) 50 mg PO DAILY [facility] Last Admin: 05/15/16 09:03 Dose: 50 mg Sevelamer Carbonate (Renvela -) 1,600 mg PO TIDCM [facility] Last Admin: 05/15/16 11:59 Dose: Not Given Sitagliptin Phosphate (Januvia -) 25 mg PO ACBK [facility] Last Admin: 05/15/16 06:34 Dose: Not Given - Objective Vital Signs: Vital Signs Temperature 97.7 F 05/15/16 14:07 Pulse Rate 103 H 05/15/16 14:07 Respiratory Rate 20 05/15/16 14:07 Blood Pressure 106/61 05/15/16 14:07 O2 Sat by Pulse Oximetry (%) 100 05/14/16 21:00 Constitutional: Yes: No Distress Eyes: Yes: Conjunctiva Clear Cardiovascular: Yes: Regular Rate and Rhythm, S1, S2 Respiratory: Yes: CTA Bilaterally Gastrointestinal: Yes: Normal Bowel Sounds, Soft. No: Tenderness Extremities: Yes: Other (L foot less erythematous + blister filled with clear fluid dorsum 3rd toe dry gangrene tip L 4th toe Dry ulcers, great toe) Labs: CBC, BMP 05/14/16 06:00 05/14/16 06:00 INR, PTT INR 1.59 (0.82-1.09) H 05/11/16 13:20 Assessment/Plan Cellulitis LE Non-healing great toe ulcers Gangrene L 4th toe ESRD Chronic venous stasis dermatitis Continue ceftriaxone vancomycin level theraputic
--- NOTE | 2016-05-15 14:23 | PN ---
Progress Note (short form) - Note Progress Note: Renal Follow up for ESRD Pt seen and examined at the bedside pt is upset at getting stuck for IV access Vital Signs Temperature 97.7 F 05/15/16 14:07 Pulse Rate 103 H 05/15/16 14:07 Respiratory Rate 20 05/15/16 14:07 Blood Pressure 106/61 05/15/16 14:07 O2 Sat by Pulse Oximetry (%) 100 05/14/16 21:00 Gen: awake and alert CVS: RRR, No M/R Lungs: CTA, no rales or wheeze Abd: soft NT/ND Ext: Trace edema in LE. Heels and foot in dressing CBC, BMP 05/14/16 06:00 05/14/16 06:00 Current Medications Apixaban (Eliquis -) 2.5 mg PO BID [facility] Last Admin: 05/15/16 09:03 Dose: 2.5 mg Atorvastatin Calcium (Lipitor -) 10 mg PO HS [facility] Last Admin: 05/14/16 21:37 Dose: 10 mg Cholecalciferol (Vitamin D3 -) 1,000 unit PO DAILY [facility] Last Admin: 05/15/16 09:03 Dose: 1,000 unit Epoetin Campos (Epogen -) 2,000 units IVPUSH ONCE ONE Stop: 05/15/16 10:58 Fenofibric Acid (Trilipix -) 45 mg PO DAILY [facility] Last Admin: 05/15/16 09:03 Dose: 45 mg Furosemide (Lasix -) 80 mg PO BIDLASIX [facility] Last Admin: 05/15/16 07:10 Dose: Not Given Ceftriaxone Sodium (Rocephin 1gm Ivpb (Pre-Docked)) 50 mls @ 100 mls/hr IVPB DAILY [facility] Last Admin: 05/15/16 09:05 Dose: 100 mls/hr Metoprolol Succinate (Toprol Xl -) 150 mg PO BID [facility] Sertraline HCl (Zoloft -) 50 mg PO DAILY [facility] Last Admin: 05/15/16 09:03 Dose: 50 mg Sevelamer Carbonate (Renvela -) 1,600 mg PO TIDCM [facility] Last Admin: 05/15/16 11:59 Dose: Not Given Sitagliptin Phosphate (Januvia -) 25 mg PO ACBK [facility] Last Admin: 05/15/16 06:34 Dose: Not Given A/P 60 year old gentleman with PMhx of ESRD (recently started on dialysis), CAD s/p CABG, DM Type 2, Depression, CHF who with LE weakness s/p recent fall and wound on right foot. 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
[2016-05-15] MEDS ORDERED: EPOETIN ALFA 2,000 UNITS/1 ML VIAL IVPUSH ONE (15:15)
[2016-05-15] MEDS: morphine CARPU-JECT 2 MG/1 ML DISP.SYRIN IVPUSH PRN (20:51)
[2016-05-15] MEDS: ATORVASTATIN CA 10 MG TABLET (FP) PO SCH (21:00)
[2016-05-15] MEDS: METOPROLOL SUCCINATE 50 MG TAB.SR.24H (FP) PO SCH (21:00)
--- NOTE | 2016-05-15 21:14 | PN ---
Progress Note (short form) - Note Progress Note: Patient states he cannot lie down for CTA today. Unclear if this is due to anxiety or pulmonary disease. He can lie on his side. Without CTA it is impossible to plan any intervention. If angiogram is done he will need to lie flat and still for 1-2 hours. Pulmonary needs to determine if it is safe to sedate him for CT ans/or OR.
--- NOTE | 2016-05-15 23:43 | PN ---
Progress Note, Physician - Current Medication List Current Medications: Active Medications Apixaban (Eliquis -) 2.5 mg PO BID [facility] Last Admin: 05/15/16 21:02 Dose: 2.5 mg Atorvastatin Calcium (Lipitor -) 10 mg PO HS [facility] Last Admin: 05/15/16 21:00 Dose: 10 mg Cholecalciferol (Vitamin D3 -) 1,000 unit PO DAILY [facility] Last Admin: 05/15/16 09:03 Dose: 1,000 unit Fenofibric Acid (Trilipix -) 45 mg PO DAILY [facility] Last Admin: 05/15/16 09:03 Dose: 45 mg Furosemide (Lasix -) 80 mg PO BIDLASIX [facility] Last Admin: 05/15/16 18:01 Dose: 80 mg Ceftriaxone Sodium (Rocephin 1gm Ivpb (Pre-Docked)) 50 mls @ 100 mls/hr IVPB DAILY [facility] Last Admin: 05/15/16 09:05 Dose: 100 mls/hr Metoprolol Succinate (Toprol Xl -) 150 mg PO BID [facility] Last Admin: 05/15/16 21:00 Dose: 150 mg Morphine Sulfate (Morphine Injection -) 4 mg IVPUSH Q6H PRN PRN Reason: PAIN Last Admin: 05/15/16 20:51 Dose: 4 mg Sertraline HCl (Zoloft -) 50 mg PO DAILY [facility] Last Admin: 05/15/16 09:03 Dose: 50 mg Sevelamer Carbonate (Renvela -) 1,600 mg PO TIDCM [facility] Last Admin: 05/15/16 18:01 Dose: Not Given Sitagliptin Phosphate (Januvia -) 25 mg PO ACBK [facility] Last Admin: 05/15/16 06:34 Dose: Not Given - Objective Vital Signs: Vital Signs Temperature 98.8 F 05/15/16 22:00 Pulse Rate 103 H 05/15/16 22:00 Respiratory Rate 19 05/15/16 22:00 Blood Pressure 116/56 05/15/16 22:00 O2 Sat by Pulse Oximetry (%) 100 05/15/16 21:00 Neck: Yes: Supple Cardiovascular: Yes: WNL, Regular Rate and Rhythm Respiratory: Yes: WNL, Regular, CTA Bilaterally Gastrointestinal: Yes: WNL, Normal Bowel Sounds, Soft Extremities: Yes: Other ((+) lt foot ulcers w/ erythema) Labs: CBC, BMP 05/14/16 06:00 05/14/16 06:00 INR, PTT INR 1.59 (0.82-1.09) H 05/11/16 13:20 Problem List - Problems (1) Cellulitis of foot Assessment/Plan: Sepsis Cont IV ceftriaxone/vanco Vasc consult noted Check cta extremities Code(s): L03.119 - CELLULITIS OF UNSPECIFIED PART OF LIMB (2) Afib Assessment/Plan: Heart rate controlled Cont eliquis Code(s): I48.91 - UNSPECIFIED ATRIAL FIBRILLATION (3) HTN (hypertension) Code(s): I10 - ESSENTIAL (PRIMARY) HYPERTENSION (4) Congestive heart failure Assessment/Plan: Cont lasix Code(s): I50.9 - HEART FAILURE, UNSPECIFIED Qualifiers: Congestive heart failure type: systolic Congestive heart failure chronicity: acute on chronic Qualified Code(s): I50.23 - Acute on chronic systolic (congestive) heart failure (5) Diabetes Assessment/Plan: Cont januvia Code(s): E11.9 - TYPE 2 DIABETES MELLITUS WITHOUT COMPLICATIONS (6) End stage renal disease Assessment/Plan: Dialysis as per renal Monitor electrolytes Code(s): N18.6 - END STAGE RENAL DISEASE
[2016-05-16] MEDS: sitaGLIPtin PHOSPHATE 25 MG TABLET (FP) PO SCH (06:00)
[2016-05-16] MEDS: FUROSEMIDE 40 MG TABLET (FP) PO SCH ×2 (06:01→14:07)
[2016-05-16 07:20] LABS: BASOPHIL 0.7 % (0-2.0); EOSINOPHIL 1.4 % (0-4.5); MCH 28.8 pg (25.7-33.7); MEAN CELL VOLUME 89.8 fl (80-96); MEAN PLT VOLUME 7.6 fl (7.5-11.1); NEUTROPHILS 78.8 % (42.8-82.8); PLATELET COUNT 331 K/MM3 (134-434); RDW 15.6 % (11.9-15.9)
[2016-05-16 07:47] LABS: ALBUMIN 2.8 g/dl (3.4-5.0); BILIRUBIN,TOTAL 0.6 mg/dL (0.2-1.0); CALCIUM 9.2 mg/dL (8.5-10.1); CREATININE 5.3 mg/dL (0.7-1.3); TOT PROT 6.9 g/dl (6.4-8.2)
[2016-05-16] MEDS: SEVELAMER CARBONATE 800 MG TAB (FP) PO SCH ×3 (08:07→17:14)
[2016-05-16] MEDS ORDERED: PT OWN MED DRAWER 7, Y5N ONE (09:26)
[2016-05-16] MEDS: morphine CARPU-JECT 2 MG/1 ML DISP.SYRIN IVPUSH PRN ×2 (09:27→18:33)
[2016-05-16] MEDS: APIXABAN 2.5 MG TABLET PO SCH ×2 (09:31→21:07)
[2016-05-16] MEDS: SERTRALINE HCL 50 MG TABLET (FP) PO SCH (09:31)
[2016-05-16] MEDS: METOPROLOL SUCCINATE 50 MG TAB.SR.24H (FP) PO SCH ×2 (09:31→21:07)
[2016-05-16] MEDS: CHOLECALCIFEROL (VITAMIN D3) 1,000 UNIT TABLET (FP) PO SCH (09:31)
[2016-05-16] MEDS: FENOFIBRIC ACID 45 MG CAP PO SCH (09:32)
[2016-05-16] MEDS: CEFTRIAXONE 50 ML IVPB SCH (09:32)
--- NOTE | 2016-05-16 11:41 | PN ---
Progress Note (short form) - Note Progress Note: Chief Complaint: foot wound History of Present Illness: sob improved today. states difficulty breathing lying flat 2/2 pain and improved after getting pain medication. no cp no palpit, dizziness. ex cigs Current Medications Apixaban (Eliquis -) 2.5 mg PO BID [facility] Last Admin: 05/16/16 09:31 Dose: 2.5 mg Atorvastatin Calcium (Lipitor -) 10 mg PO HS [facility] Last Admin: 05/15/16 21:00 Dose: 10 mg Cholecalciferol (Vitamin D3 -) 1,000 unit PO DAILY [facility] Last Admin: 05/16/16 09:31 Dose: 1,000 unit Fenofibric Acid (Trilipix -) 45 mg PO DAILY [facility] Last Admin: 05/16/16 09:32 Dose: 45 mg Furosemide (Lasix -) 80 mg PO BIDLASIX [facility] Last Admin: 05/16/16 06:01 Dose: 80 mg Ceftriaxone Sodium (Rocephin 1gm Ivpb (Pre-Docked)) 50 mls @ 100 mls/hr IVPB DAILY [facility] Last Admin: 05/16/16 09:32 Dose: 100 mls/hr Metoprolol Succinate (Toprol Xl -) 150 mg PO BID [facility] Last Admin: 05/16/16 09:31 Dose: 150 mg Morphine Sulfate (Morphine Injection -) 4 mg IVPUSH Q6H PRN PRN Reason: PAIN Last Admin: 05/16/16 09:27 Dose: 4 mg Sertraline HCl (Zoloft -) 50 mg PO DAILY [facility] Last Admin: 05/16/16 09:31 Dose: 50 mg Sevelamer Carbonate (Renvela -) 1,600 mg PO TIDCM [facility] Last Admin: 05/16/16 08:07 Dose: Not Given Sitagliptin Phosphate (Januvia -) 25 mg PO ACBK [facility] Last Admin: 05/16/16 06:00 Dose: 25 mg Vital Signs - 24 hr 05/15/16 05/15/16 05/15/16 13:55 14:00 14:07 Temperature 97.8 F 97.7 F Pulse Rate 102 H 104 H 103 H Respiratory 18 18 20 Rate Blood Pressure 130/74 131/72 106/61 O2 Sat by Pulse Oximetry (%) 03/20/17 03/20/17 03/20/17 14:30 15:00 15:30 Temperature Pulse Rate 100 H 69 93 H Respiratory 18 18 18 Rate Blood Pressure 120/72 133/88 132/35 O2 Sat by Pulse Oximetry (%) 05/15/16 05/15/16 05/15/16 16:00 16:30 17:00 Temperature Pulse Rate 105 H 80 81 Respiratory 18 18 18 Rate Blood Pressure 105/60 116/61 108/70 O2 Sat by Pulse Oximetry (%) 05/15/16 05/15/16 05/15/16 17:30 18:00 21:00 Temperature 97.0 F L Pulse Rate 80 100 H Respiratory 18 20 Rate Blood Pressure 110/62 131/67 O2 Sat by Pulse 100 Oximetry (%) 05/15/16 05/16/16 05/16/16 22:00 02:00 05:50 Temperature 98.8 F 97.3 F L 97.4 F L Pulse Rate 103 H 100 H 100 H Respiratory 19 20 18 Rate Blood Pressure 116/56 125/60 99/74 O2 Sat by Pulse 100 Oximetry (%) 05/16/16 10:00 Temperature 98 F Pulse Rate 104 H Respiratory 20 Rate Blood Pressure 122/58 O2 Sat by Pulse Oximetry (%) Intake & Output 05/14/16 05/15/16 05/16/16 05/17/16 07:59 07:59 07:59 07:59 Intake Total 470 550 460 Output Total 300 Balance 470 550 160 Weight 209 lb 9.6 oz 211 lb 6.4 oz 205 lb 2 oz Constitutional: Yes: No Distress, Calm Eyes: No: Sclera Icterus HENT: No: Nasal Congestion Cardiovascular: Yes: Pulse Irregular, S1, S2, Other (PMI non diplaced). No: JVD , Gallop, Murmur Respiratory: Yes: bibasilar rales nl effort. No: Accessory Muscle Use, Rales, Wheezes Gastrointestinal: Yes: Normal Bowel Sounds, Soft. No: Tenderness Musculoskeletal: Yes: Other (No kyphosis) Extremities: No: Cold Edema: Yes (trace pretib) Integumentary: No: Jaundice Neurological: Yes: Alert, Oriented (x3) Psychiatric: No: Agitated Labs: CBC, BMP 05/16/16 05:35 05/16/16 05:35 Laboratory Tests 05/16/16 05:35 Albumin 2.8 L - ....Imaging EKG: Other (tele: AFL, rate controlled 100's, pvc's.) Assessment/Plan echo 09/2015: mod lve, mild-mod dec lvef, global HK, nl rv, mod-sev mr, sev tr, marixa, nl rvsp echo 03/2016: mild lve, mod dec lvef, ant HK, nl rv size, marixa, mild mr, mod tr, rvsp 40-50 a/p: 60 m hx htn, hld, dm, cabg (04/2006), ESRD, afib/flutter, syst chf, esrd on HD, here with infected foot wound chronic syst chf: -vol status stable, no signs of chf at present -cont po lasix 80 bid and HD for vol management (started 05/12) -recent echo 03/2016 here similar to 09/2015, shows mod reduced lvef--? etiology -pt had not been compliant with f/u with cardio for at least 2-3 yrs, need to obtain records re: prior ischemia w/u -need accurate assessment of AF rate control (r/o tachy-CMP) and burden ( paroxysmal) as outpt -he intends to f/u wtih me in office but hospitalized now at the time of his scheduled f/u visit -wt down 222 to 210 on prior d/c 04/14 -currently 211, no JVD but suspect hi filling pressures given signif sob and orthopnea -d/w'd dr mcghee--will try daily HD as bp tolerates -con't bb -holding diovan 80 qd, hydralazine 25 bid, and isordil 10 qd given low bp possibly from sepsis, resume when bp improved -has had low BPs during HD limiting fluid removal afib/flutter: -initially not well controlled--HRs to 140s at times. (cannot use dilt with chronic syst chf, low dose digoxin (HD pt) hi risk toxicity. Amio or consider AVN ablation/PPM if cannot adequately control HRs) -increased toprol 100 bid to 150 bid, prefer not to hold it on HD days, if bp can tolerate--d/w'd dr mcghee -? reactive to decomp chf vs causing it --> 05/16 rates signficantly improved today. -cont eliquis 2.5 bid (presyncopal consistently following eliquis 5mg doses at home--???)--hope to incr later once chf status and bp drops from HD are stabilized ESRD -cont hd per renal -fluid removal as disc'd above htn: -bp's on low side here, possibly due to infection/cellulitis so holding diovan, nitrate, hydralazine for now, resume when bp stable -related to body equilibrating to recent start of HD -LH/presyncope episodes at home, ? (highly unusual) med effect (eliquis 5mg)-- suspect more likely related to hi chf med burden with intravasc fluid shifts from HD hld: -cont home statin cad s/p cabg: -ce's neg x2, EKG without ischemic changes, no signs chf -recent echo w/o sig change from prior -cont statin, bb, ac le cellulitis, possible gangrene: -plans per surgery, ID -ok to hold eliquis if needed for debridement
--- NOTE | 2016-05-16 11:48 | PN ---
Progress Note (short form) - Note Progress Note: PULMONARY CONSULTATION DICTATED 05/16/16 IMP DYSPNEA MULTIPLE FACTORS,CHF,COPD PULMONARY HTN ASHD S/P CABG ESRD ON HD AFIB HTN DM PVD CELLULITIS LIKELY OSAS PLAN HD PER RENAL ANTIBIOTICS PER ID INHALED BRONCHODILATORS SUPPLEMENTAL O2 CHECK O2 SAT AT REST AND POST EXERCISE ON RA PFTS SLEEP SCREEN SLEEP STUDIES OUTPATIENT DR LUNA Problem List - Problems (1) Afib Code(s): I48.91 - UNSPECIFIED ATRIAL FIBRILLATION (3) CHF exacerbation Code(s): I50.9 - HEART FAILURE, UNSPECIFIED Qualifiers: Congestive heart failure type: unspecified congestive heart failure type Qualified Code(s): I50.9 - Heart failure, unspecified (4) Cellulitis and abscess of foot Code(s): L03.119 - CELLULITIS OF UNSPECIFIED PART OF LIMB L02.619 - CUTANEOUS ABSCESS OF UNSPECIFIED FOOT (5) Microangiopathy, 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 (6) Anemia Code(s): D64.9 - ANEMIA, UNSPECIFIED Qualifiers: Anemia type: unspecified type Qualified Code(s): D64.9 - Anemia, unspecified (7) Atrial fibrillation with RVR Code(s): I48.91 - UNSPECIFIED ATRIAL FIBRILLATION (8) Bilateral shoulder pain Code(s): M25.511 - PAIN IN RIGHT SHOULDER M25.512 - PAIN IN LEFT SHOULDER (9) Cellulitis of foot Code(s): L03.119 - CELLULITIS OF UNSPECIFIED PART OF LIMB (10) Dyspnea on exertion Code(s): R06.09 - OTHER FORMS OF DYSPNEA (11) HTN (hypertension) Code(s): I10 - ESSENTIAL (PRIMARY) HYPERTENSION (12) Atrial flutter Code(s): I48.92 - UNSPECIFIED ATRIAL FLUTTER (13) CAD, multiple vessel Code(s): I25.10 - ATHSCL HEART DISEASE OF [place] CORONARY ARTERY W/O ANG PCTRS (14) Congestive heart failure Code(s): I50.9 - HEART FAILURE, UNSPECIFIED Qualifiers: Congestive heart failure type: systolic Congestive heart failure chronicity: acute on chronic Qualified Code(s): I50.23 - Acute on chronic systolic (congestive) heart failure (15) Diabetes Code(s): E11.9 - TYPE 2 DIABETES MELLITUS WITHOUT COMPLICATIONS (16) End stage renal disease Code(s): N18.6 - END STAGE RENAL DISEASE
--- NOTE | 2016-05-16 15:21 | PN ---
Progress Note (short form) - Note Progress Note: Renal Follow up for ESRD Pt seen and examined at the bedside continues to have mild sob no chest pain was unable to lay down for CT scan yesterday s/p HD yesterday Vital Signs Temperature 97.5 F L 05/16/16 14:20 Pulse Rate 78 05/16/16 14:55 Respiratory Rate 18 05/16/16 14:55 Blood Pressure 101/62 05/16/16 14:55 O2 Sat by Pulse Oximetry (%) 94 L 05/16/16 13:43 Intake & Output 05/13/16 05/14/16 05/15/16 05/16/16 23:59 23:59 23:59 23:59 Intake Total 380 420 560 150 Output Total 600 300 Balance -220 420 560 -150 Weight 213 lb 12.8 oz 209 lb 9.6 oz 211 lb 6.4 oz 205 lb 2 oz Gen: awake and alert CVS: RRR, No M/R Lungs: CTA, no rales or wheeze Abd: soft NT/ND Ext: Trace edema in LE. Heels and foot in dressing CBC, BMP 05/16/16 05:35 05/16/16 05:35 Current Medications Apixaban (Eliquis -) 2.5 mg PO BID [facility] Last Admin: 05/16/16 09:31 Dose: 2.5 mg Atorvastatin Calcium (Lipitor -) 10 mg PO HS [facility] Last Admin: 05/15/16 21:00 Dose: 10 mg Cholecalciferol (Vitamin D3 -) 1,000 unit PO DAILY [facility] Last Admin: 05/16/16 09:31 Dose: 1,000 unit Fenofibric Acid (Trilipix -) 45 mg PO DAILY [facility] Last Admin: 05/16/16 09:32 Dose: 45 mg Furosemide (Lasix -) 80 mg PO BIDLASIX [facility] Last Admin: 05/16/16 14:07 Dose: Not Given Ceftriaxone Sodium (Rocephin 1gm Ivpb (Pre-Docked)) 50 mls @ 100 mls/hr IVPB DAILY [facility] Last Admin: 05/16/16 09:32 Dose: 100 mls/hr Metoprolol Succinate (Toprol Xl -) 150 mg PO BID [facility] Last Admin: 05/16/16 09:31 Dose: 150 mg Morphine Sulfate (Morphine Injection -) 4 mg IVPUSH Q6H PRN PRN Reason: PAIN Last Admin: 05/16/16 09:27 Dose: 4 mg Sertraline HCl (Zoloft -) 50 mg PO DAILY [facility] Last Admin: 05/16/16 09:31 Dose: 50 mg Sevelamer Carbonate (Renvela -) 1,600 mg PO TIDCM [facility] Last Admin: 05/16/16 11:56 Dose: Not Given Sitagliptin Phosphate (Januvia -) 25 mg PO ACBK [facility] Last Admin: 05/16/16 06:00 Dose: 25 mg A/P 60 year old gentleman with PMhx of ESRD (recently started on dialysis), CAD s/p CABG, DM Type 2, Depression, CHF who with LE weakness s/p recent fall and wound on right foot. 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
--- NOTE | 2016-05-16 15:22 | PN ---
Progress Note, Physician History of Present Illness: No c/o leg pain No c/o fever/ chills CTA done, reading pending - Current Medication List Current Medications: Active Medications Apixaban (Eliquis -) 2.5 mg PO BID [facility] Last Admin: 05/16/16 09:31 Dose: 2.5 mg Atorvastatin Calcium (Lipitor -) 10 mg PO HS [facility] Last Admin: 05/15/16 21:00 Dose: 10 mg Cholecalciferol (Vitamin D3 -) 1,000 unit PO DAILY [facility] Last Admin: 05/16/16 09:31 Dose: 1,000 unit Fenofibric Acid (Trilipix -) 45 mg PO DAILY [facility] Last Admin: 05/16/16 09:32 Dose: 45 mg Furosemide (Lasix -) 80 mg PO BIDLASIX [facility] Last Admin: 05/16/16 14:07 Dose: Not Given Ceftriaxone Sodium (Rocephin 1gm Ivpb (Pre-Docked)) 50 mls @ 100 mls/hr IVPB DAILY [facility] Last Admin: 05/16/16 09:32 Dose: 100 mls/hr Metoprolol Succinate (Toprol Xl -) 150 mg PO BID [facility] Last Admin: 05/16/16 09:31 Dose: 150 mg Morphine Sulfate (Morphine Injection -) 4 mg IVPUSH Q6H PRN PRN Reason: PAIN Last Admin: 05/16/16 09:27 Dose: 4 mg Sertraline HCl (Zoloft -) 50 mg PO DAILY [facility] Last Admin: 05/16/16 09:31 Dose: 50 mg Sevelamer Carbonate (Renvela -) 1,600 mg PO TIDCM [facility] Last Admin: 05/16/16 11:56 Dose: Not Given Sitagliptin Phosphate (Januvia -) 25 mg PO ACBK [facility] Last Admin: 05/16/16 06:00 Dose: 25 mg - Objective Vital Signs: Vital Signs Temperature 97.5 F L 05/16/16 14:20 Pulse Rate 78 05/16/16 14:55 Respiratory Rate 18 05/16/16 14:55 Blood Pressure 101/62 05/16/16 14:55 O2 Sat by Pulse Oximetry (%) 94 L 05/16/16 13:43 Constitutional: Yes: No Distress Eyes: Yes: Conjunctiva Clear Cardiovascular: Yes: Regular Rate and Rhythm, S1, S2 Respiratory: Yes: CTA Bilaterally Gastrointestinal: Yes: Normal Bowel Sounds, Soft, Abdomen, Obese. No: Tenderness Extremities: Yes: Other (LE less erythematous) Labs: CBC, BMP 05/16/16 05:35 05/16/16 05:35 INR, PTT INR 1.59 (0.82-1.09) H 05/11/16 13:20 Assessment/Plan Cellulitis LE Non-healing great toe ulcers Gangrene L 4th toe ESRD Chronic venous stasis dermatitis Continue ceftriaxone vancomycin level pending
--- NOTE | 2016-05-16 17:25 | EKG ---
Test Reason : Blood Pressure : / mmHG Vent. Rate : 124 BPM Atrial Rate : 124 BPM P-R Int : 164 ms QRS Dur : 112 ms QT Int : 298 ms P-R-T Axes : 000 088 253 degrees QTc Int : 428 ms LIKELY ATRIAL FLUTTER WITH RAPID VENTRICULAR RESPONSE NONSPECIFIC ST AND T WAVE ABNORMALITY ABNORMAL ECG WHEN COMPARED WITH ECG OF 08-MAY-2016 10:32, ATRIAL FLUTTER HAS REPLACED ATRIAL FIBRILLATION VENT. RATE HAS INCREASED Confirmed by MARIA ALBARADO MD ([id number]) on 05/16/2016 5:25:25 PM Referred By: Confirmed By:MARIA ALBARADO MD
--- NOTE | 2016-05-16 18:55 | CONS ---
DATE OF CONSULTATION: 05/16/2016 REFERRING PHYSICIAN: Janee Montes MD HISTORY OF PRESENT ILLNESS: The patient is a 60-year-old white male with extensive past medical history that include end-stage renal disease on hemodialysis, ASHD status post CABG with postoperative course complicated by sternal wound infection, history of diabetes mellitus, hypertension, longstanding history of tobacco of approximately 4 packs per day, quit in 2001, admitted to [facility] on May 11 secondary to bilateral lower extremity cellulitis. The patient has been hospitalized secondary to the above. He apparently was at the long term, twisted his leg, apparently started feeling worse, having erythema, warmth, and swelling of both lower extremities, left greater than right, at which time he was transferred back to [facility]. He was evaluated by Dr. Bran for infectious disease and placed on broad-spectrum antibiotics. He was also evaluated by Dr. Young from Vascular Surgery. The patient complains of shortness of breath for walking short distances, denies any chest pains or palpitations. Also states he is unable to lay flat. He is able to lie on his side but not lay flat. He also states that he snores. Unsure whether he has witnessed apnea episodes, denies excessive daytime sleepiness. 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 He denies any recent travel. There is history of DVT or PE in the past. There is no history of respiratory failure in the past or pulmonary event with ventilatory support. PAST MEDICAL HISTORY: Again, includes end-stage renal disease on hemodialysis, [id number] diabetes mellitus, hypertension, likely COPD, CHF, ASHD status post CABG postoperative course complicated by wound infection. 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 CURRENT MEDICATIONS: Include Rocephin, Eliquis, Zoloft, Toprol, Januvia, Trilipix, Lipitor, Lasix, morphine, Renvela and vitamin D3. REVIEW OF SYSTEMS: Positive orthopnea, positive dyspnea on exertion. No chest pain, no palpitations, no abdominal pain. No cough. No hemoptysis. Has lower extremity edema, swelling and erythema. PHYSICAL EXAMINATION: General: The patient is a well-developed, well-nourished male, awake, alert in no acute distress. Vital Signs: He is afebrile. Blood pressure 122/58, respiratory rate 20, O2 saturation 99% on 3 L. HEENT: Normocephalic, atraumatic. Neck: Supple. Heart: Regularly irregular with normal S1, S2. Chest: Bibasilar crackles. Abdomen: Soft, bowel sounds positive. Extremities: Bilateral lower extremities have erythema and swelling. LABORATORY DATA: WBC is 15, hemoglobin 10.5, hematocrit 32.6, with platelet count 331,000. BUN 43, creatinine 5.3, INR is 1.15, vancomycin level is 19.835. IMAGING: Chest x-ray reveals cardiomegaly. No definite CHF, effusions, or pneumonia. IMPRESSION: 1. Dyspnea secondary to multiple factors,Chf, likely underlying chronic obstructive pulmonary disease secondary to longstanding tobacco use. 2. End-stage renal disease on hemodialysis. 3. Arteriosclerotic heart disease, status post coronary artery bypass graft. 4. Diabetes mellitus. 5. Hypertension. 6. Peripheral vascular disease. PLAN: Continue vascular workup as per Cardiology. No pulmonary contraindications to any surgical intervention. Will obtain O2 saturation at rest and post exercise on room air. Also, inhaled bronchodilators, supplemental O2. Antibiotics as per Infectious Disease. SEUN LUNA M.D. MARCELO/[id number] MTDD
[2016-05-16] MEDS: ATORVASTATIN CA 10 MG TABLET (FP) PO SCH (21:07)
--- NOTE | 2016-05-16 22:32 | PN ---
Progress Note, Physician History of Present Illness: Pt states that he was unable to do ct scan due to unable to lie flat - Current Medication List Current Medications: Active Medications Apixaban (Eliquis -) 2.5 mg PO BID [facility] Last Admin: 05/16/16 21:07 Dose: 2.5 mg Atorvastatin Calcium (Lipitor -) 10 mg PO HS [facility] Last Admin: 05/16/16 21:07 Dose: 10 mg Cholecalciferol (Vitamin D3 -) 1,000 unit PO DAILY [facility] Last Admin: 05/16/16 09:31 Dose: 1,000 unit Fenofibric Acid (Trilipix -) 45 mg PO DAILY [facility] Last Admin: 05/16/16 09:32 Dose: 45 mg Furosemide (Lasix -) 80 mg PO BIDLASIX [facility] Last Admin: 05/16/16 14:07 Dose: Not Given Ceftriaxone Sodium (Rocephin 1gm Ivpb (Pre-Docked)) 50 mls @ 100 mls/hr IVPB DAILY [facility] Last Admin: 05/16/16 09:32 Dose: 100 mls/hr Metoprolol Succinate (Toprol Xl -) 150 mg PO BID [facility] Last Admin: 05/16/16 21:07 Dose: 150 mg Morphine Sulfate (Morphine Injection -) 4 mg IVPUSH Q6H PRN PRN Reason: PAIN Last Admin: 05/16/16 18:33 Dose: 4 mg Sertraline HCl (Zoloft -) 50 mg PO DAILY [facility] Last Admin: 05/16/16 09:31 Dose: 50 mg Sevelamer Carbonate (Renvela -) 1,600 mg PO TIDCM [facility] Last Admin: 05/16/16 17:14 Dose: Not Given Sitagliptin Phosphate (Januvia -) 25 mg PO ACBK [facility] Last Admin: 05/16/16 06:00 Dose: 25 mg - Objective Vital Signs: Vital Signs Temperature 97.0 F L 05/16/16 17:00 Pulse Rate 101 H 05/16/16 17:00 Respiratory Rate 18 05/16/16 17:00 Blood Pressure 127/67 05/16/16 17:00 O2 Sat by Pulse Oximetry (%) 94 L 05/16/16 13:43 Constitutional: Yes: Well Nourished Neck: Yes: Supple Cardiovascular: Yes: WNL, Regular Rate and Rhythm Respiratory: Yes: WNL, Regular, CTA Bilaterally Gastrointestinal: Yes: WNL, Normal Bowel Sounds, Soft Extremities: Yes: Other (Lt foot/toe uolcers w/ erythema) Labs: CBC, BMP 05/16/16 05:35 05/16/16 05:35 INR, PTT INR 1.59 (0.82-1.09) H 05/11/16 13:20 Problem List - Problems (1) Afib Code(s): I48.91 - UNSPECIFIED ATRIAL FIBRILLATION (2) Cellulitis of foot Assessment/Plan: Sepsis Cont IV ceftriaxone/vanco Cont wound care Code(s): L03.119 - CELLULITIS OF UNSPECIFIED PART OF LIMB (3) HTN (hypertension) Assessment/Plan: BP stable Code(s): I10 - ESSENTIAL (PRIMARY) HYPERTENSION (4) Congestive heart failure Assessment/Plan: Cont lasix Code(s): I50.9 - HEART FAILURE, UNSPECIFIED Qualifiers: Congestive heart failure type: systolic Congestive heart failure chronicity: acute on chronic Qualified Code(s): I50.23 - Acute on chronic systolic (congestive) heart failure (5) Diabetes Code(s): E11.9 - TYPE 2 DIABETES MELLITUS WITHOUT COMPLICATIONS (6) End stage renal disease Code(s): N18.6 - END STAGE RENAL DISEASE
[2016-05-17] MEDS: morphine CARPU-JECT 2 MG/1 ML DISP.SYRIN IVPUSH PRN ×4 (01:52→23:04)
[2016-05-17] MEDS: sitaGLIPtin PHOSPHATE 25 MG TABLET (FP) PO SCH (06:16)
[2016-05-17] MEDS: FUROSEMIDE 40 MG TABLET (FP) PO SCH ×2 (06:16→13:10)
[2016-05-17] MEDS: SEVELAMER CARBONATE 800 MG TAB (FP) PO SCH ×3 (08:24→17:21)
[2016-05-17] MEDS ORDERED: PT OWN MED DRAWER 7, Y5N ONE (09:57)
[2016-05-17] MEDS: APIXABAN 2.5 MG TABLET PO SCH ×2 (10:18→21:05)
[2016-05-17] MEDS: FENOFIBRIC ACID 45 MG CAP PO SCH (10:18)
[2016-05-17] MEDS: CHOLECALCIFEROL (VITAMIN D3) 1,000 UNIT TABLET (FP) PO SCH (10:18)
[2016-05-17] MEDS: METOPROLOL SUCCINATE 50 MG TAB.SR.24H (FP) PO SCH ×2 (10:19→21:05)
[2016-05-17] MEDS: SERTRALINE HCL 50 MG TABLET (FP) PO SCH (10:19)
[2016-05-17] MEDS: CEFTRIAXONE 50 ML IVPB SCH (10:21)
--- NOTE | 2016-05-17 10:45 | PN ---
Progress Note (short form) - Note Progress Note: Chief Complaint: foot wound History of Present Illness: sob improved today but still states difficulty breathing lying flat no cp no palpit, dizziness. ex cigs Current Medications Generic Name Dose Route Start Last Admin Trade Name Freq PRN Reason Stop Dose Admin Apixaban 2.5 mg 05/11/16 22:00 05/17/16 10:18 Eliquis - PO 2.5 mg BID MARY Administration Atorvastatin Calcium 10 mg 05/11/16 22:00 05/16/16 21:07 Lipitor - PO 10 mg HS MARY Administration Cholecalciferol 1,000 unit 05/14/16 11:15 05/17/16 10:18 Vitamin D3 - PO 1,000 unit DAILY MARY Administration Fenofibric Acid 45 mg 05/12/16 10:00 05/17/16 10:18 Trilipix - PO 45 mg DAILY MARY Administration Furosemide 80 mg 05/13/16 06:00 05/17/16 06:16 Lasix - PO 80 mg BIDLASIX MARY Administration Ceftriaxone Sodium 50 mls @ 100 mls/hr 05/12/16 13:15 05/17/16 10:21 Rocephin 1gm Ivpb (Pre-Docked) IVPB 100 mls/hr DAILY MARY Administration Metoprolol Succinate 150 mg 05/15/16 22:00 05/17/16 10:19 Toprol Xl - PO 150 mg BID MARY Administration Morphine Sulfate 4 mg 05/15/16 20:38 05/17/16 10:20 Morphine Injection - IVPUSH 4 mg Q6H PRN Administration PAIN Sertraline HCl 50 mg 05/12/16 10:00 05/17/16 10:19 Zoloft - PO 50 mg DAILY MARY Administration Sevelamer Carbonate 1,600 mg 05/13/16 12:00 05/17/16 08:24 Renvela - PO Not Given TIDCM MARY Sitagliptin Phosphate 25 mg 05/12/16 07:00 05/17/16 06:16 Januvia - PO Not Given ACBK MARY Vital Signs Period Temp Pulse Resp BP Sys/Ledbetter Pulse Ox Last 24 Hr 97.0 F-98.9 F 74-107 18-20 101-144/54-77 90-100 Constitutional: Yes: No Distress, Calm Eyes: No: Sclera Icterus HENT: No: Nasal Congestion Cardiovascular: Yes: Pulse Irregular, S1, S2, Other (PMI non diplaced). No: JVD , Gallop, Murmur Respiratory: Yes: bibasilar rales nl effort. No: Accessory Muscle Use, Rales, Wheezes Gastrointestinal: Yes: Normal Bowel Sounds, Soft. No: Tenderness Musculoskeletal: Yes: Other (No kyphosis) Extremities: No: Cold Edema: Yes (trace pretib) Integumentary: No: Jaundice Neurological: Yes: Alert, Oriented (x3) Psychiatric: No: Agitated Labs: Laboratory Last Values WBC 15.0 K/mm3 (4.0-10.0) H 05/16/16 05:35 RBC 3.64 M/mm3 (4.00-5.60) L 05/16/16 05:35 Hgb 10.5 GM/dL (11.7-16.9) L 05/16/16 05:35 Hct 32.6 % (35.4-49) L 05/16/16 05:35 MCV 89.8 fl (80-96) 05/16/16 05:35 MCHC 32.0 g/dl (32.0-35.9) 05/16/16 05:35 RDW 15.6 % (11.9-15.9) 05/16/16 05:35 Plt Count 331 K/MM3 (134-434) 05/16/16 05:35 MPV 7.6 fl (7.5-11.1) 05/16/16 05:35 Neutrophils % 78.8 % (42.8-82.8) 05/16/16 05:35 Lymphocytes % 10.6 % (8-40) D 05/16/16 05:35 Monocytes % 8.5 % (3.8-10.2) 05/16/16 05:35 Eosinophils % 1.4 % (0-4.5) D 05/16/16 05:35 Basophils % 0.7 % (0-2.0) 05/16/16 05:35 INR 1.59 (0.82-1.09) H 05/11/16 13:20 Sodium 138 mmol/L (136-145) 05/16/16 05:35 Potassium 4.0 mmol/L (3.5-5.1) 05/16/16 05:35 Chloride 97 mmol/L (98-107) L 05/16/16 05:35 Carbon Dioxide 29 mmol/L (21-32) 05/16/16 05:35 Anion Gap 12 (8-16) 05/16/16 05:35 BUN 43 mg/dL (7-18) H D 05/16/16 05:35 Creatinine 5.3 mg/dL (0.7-1.3) H 05/16/16 05:35 Creat Clearance w eGFR 11.05 (>60) 05/16/16 05:35 POC Glucometer 73 UNITS (()) 05/17/16 06:15 Random Glucose 105 mg/dL (74-106) 05/16/16 05:35 Calcium 9.2 mg/dL (8.5-10.1) 05/16/16 05:35 Phosphorus 6.9 mg/dL (2.5-4.9) H 05/14/16 06:00 Magnesium 2.0 mg/dL (1.8-2.4) 05/14/16 06:00 Total Bilirubin 0.6 mg/dL (0.2-1.0) 05/16/16 05:35 AST 20 U/L (15-37) 05/16/16 05:35 ALT 20 U/L (12-78) D 05/16/16 05:35 Alkaline Phosphatase 54 U/L (45-117) 05/16/16 05:35 Creatine Kinase 44 IU/L (39-308) 05/12/16 05:50 Troponin I 0.03 ng/ml (0.00-0.05) D 05/12/16 05:50 B-Natriuretic Peptide 21520.58 pg/ml (5-125) H 05/11/16 13:20 Total Protein 6.9 g/dl (6.4-8.2) 05/16/16 05:35 Albumin 2.8 g/dl (3.4-5.0) L 05/16/16 05:35 Vancomycin Trough 19.835 ug/ml (5.0-10.0) H* D 05/15/16 05:35 Random Vancomycin 11.496 ug/ml 05/16/16 15:30 Hepatitis A Ab Total Negative (Negative) 05/13/16 12:20 Hep Bs Antigen Negative (Negative) 05/13/16 12:20 Hep Bs Antibody Non reactive (.) 05/13/16 12:20 Hep B Core Total Ab Negative (Negative) 05/13/16 12:20 Hepatitis C Antibody 0.2 s/co ratio (0.0-0.9) 05/13/16 12:20 tele: AFL, rate controlled echo 09/2015: mod lve, mild-mod dec lvef, global HK, nl rv, mod-sev mr, sev tr, marixa, nl rvsp echo 03/2016: mild lve, mod dec lvef, ant HK, nl rv size, marixa, mild mr, mod tr, rvsp 40-50 a/p: 60 m hx htn, hld, dm, cabg (04/2006), ESRD, afib/flutter, syst chf, esrd on HD, here with infected foot wound chronic syst chf: -vol status stable, no signs of chf at present -cont po lasix 80 bid and HD for vol management (started 05/12) -recent echo 03/2016 here similar to 09/2015, shows mod reduced lvef--? etiology -need accurate assessment of AF rate control (r/o tachy-CMP) and burden ( paroxysmal) as outpt -still with orthopnea, cont frequent HD for vol management as bp tolerates -con't bb -holding diovan 80 qd, hydralazine 25 bid, and isordil 10 qd given low bp possibly from sepsis, resume when bp improved afib/flutter: -initially not well controlled--HRs to 140s at times. (cannot use dilt with chronic syst chf, low dose digoxin (HD pt) hi risk toxicity. Amio or consider AVN ablation/PPM if cannot adequately control HRs) -increased toprol 100 bid to 150 bid here, hr better now. prefer not to hold it on HD days, if bp can tolerate -cont eliquis 2.5 bid (presyncopal consistently following eliquis 5mg doses at home--???)--hope to incr later once chf status and bp drops from HD are stabilized ESRD -cont hd per renal -fluid removal as disc'd above htn: -bp's on low side here, possibly due to infection/cellulitis so holding diovan, nitrate, hydralazine for now, resume when bp stable -related to body equilibrating to recent start of HD -LH/presyncope episodes at home, ? (highly unusual) med effect (eliquis 5mg)-- suspect more likely related to hi chf med burden with intravasc fluid shifts from HD hld: -cont home statin cad s/p cabg: -ce's neg x2, EKG without ischemic changes, no signs chf -recent echo w/o sig change from prior -cont statin, bb, ac le cellulitis, possible gangrene: -plans per surgery, ID -ok to hold eliquis if needed for debridement
--- NOTE | 2016-05-17 11:46 | PN ---
Progress Note, Physician History of Present Illness: pulmonary alert,feeling better,less dyspneic,-cp - Current Medication List Current Medications: Active Medications Apixaban (Eliquis -) 2.5 mg PO BID [facility] Last Admin: 05/17/16 10:18 Dose: 2.5 mg Atorvastatin Calcium (Lipitor -) 10 mg PO HS [facility] Last Admin: 05/16/16 21:07 Dose: 10 mg Cholecalciferol (Vitamin D3 -) 1,000 unit PO DAILY [facility] Last Admin: 05/17/16 10:18 Dose: 1,000 unit Fenofibric Acid (Trilipix -) 45 mg PO DAILY [facility] Last Admin: 05/17/16 10:18 Dose: 45 mg Furosemide (Lasix -) 80 mg PO BIDLASIX [facility] Last Admin: 05/17/16 06:16 Dose: 80 mg Ceftriaxone Sodium (Rocephin 1gm Ivpb (Pre-Docked)) 50 mls @ 100 mls/hr IVPB DAILY [facility] Last Admin: 05/17/16 10:21 Dose: 100 mls/hr Metoprolol Succinate (Toprol Xl -) 150 mg PO BID [facility] Last Admin: 05/17/16 10:19 Dose: 150 mg Morphine Sulfate (Morphine Injection -) 4 mg IVPUSH Q6H PRN PRN Reason: PAIN Last Admin: 05/17/16 10:20 Dose: 4 mg Sertraline HCl (Zoloft -) 50 mg PO DAILY [facility] Last Admin: 05/17/16 10:19 Dose: 50 mg Sevelamer Carbonate (Renvela -) 1,600 mg PO TIDCM [facility] Last Admin: 05/17/16 08:24 Dose: Not Given Sitagliptin Phosphate (Januvia -) 25 mg PO ACBK [facility] Last Admin: 05/17/16 06:16 Dose: Not Given - Objective Vital Signs: Vital Signs Temperature 97.4 F L 05/17/16 08:05 Pulse Rate 101 H 05/17/16 08:05 Respiratory Rate 20 05/17/16 08:05 Blood Pressure 139/62 05/17/16 08:05 O2 Sat by Pulse Oximetry (%) 100 05/17/16 06:00 Constitutional: Yes: Well Nourished, Calm Eyes: Yes: WNL HENT: Yes: WNL Neck: Yes: WNL Cardiovascular: Yes: Pulse Irregular, S1, S2 Respiratory: Yes: Rales (crackles on left) Gastrointestinal: Yes: Normal Bowel Sounds, Soft Extremities: Yes: Erythema Edema: Yes (TRACE) Labs: CBC, BMP 05/16/16 05:35 05/16/16 05:35 INR, PTT INR 1.59 (0.82-1.09) H 05/11/16 13:20 Problem List - Problems (1) Afib Code(s): I48.91 - UNSPECIFIED ATRIAL FIBRILLATION (3) CHF exacerbation Code(s): I50.9 - HEART FAILURE, UNSPECIFIED Qualifiers: Congestive heart failure type: unspecified congestive heart failure type Qualified Code(s): I50.9 - Heart failure, unspecified (4) Cellulitis and abscess of foot Code(s): L03.119 - CELLULITIS OF UNSPECIFIED PART OF LIMB L02.619 - CUTANEOUS ABSCESS OF UNSPECIFIED FOOT (5) Microangiopathy, 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 (6) Anemia Code(s): D64.9 - ANEMIA, UNSPECIFIED Qualifiers: Anemia type: unspecified type Qualified Code(s): D64.9 - Anemia, unspecified (7) Atrial fibrillation with RVR Code(s): I48.91 - UNSPECIFIED ATRIAL FIBRILLATION (8) Bilateral shoulder pain Code(s): M25.511 - PAIN IN RIGHT SHOULDER M25.512 - PAIN IN LEFT SHOULDER (9) Cellulitis of foot Code(s): L03.119 - CELLULITIS OF UNSPECIFIED PART OF LIMB (10) Dyspnea on exertion Code(s): R06.09 - OTHER FORMS OF DYSPNEA (11) HTN (hypertension) Code(s): I10 - ESSENTIAL (PRIMARY) HYPERTENSION (12) Atrial flutter Code(s): I48.92 - UNSPECIFIED ATRIAL FLUTTER (13) CAD, multiple vessel Code(s): I25.10 - ATHSCL HEART DISEASE OF [place] CORONARY ARTERY W/O ANG PCTRS (14) Congestive heart failure Code(s): I50.9 - HEART FAILURE, UNSPECIFIED Qualifiers: Congestive heart failure type: systolic Congestive heart failure chronicity: acute on chronic Qualified Code(s): I50.23 - Acute on chronic systolic (congestive) heart failure (15) Diabetes Code(s): E11.9 - TYPE 2 DIABETES MELLITUS WITHOUT COMPLICATIONS (16) End stage renal disease Code(s): N18.6 - END STAGE RENAL DISEASE Assessment/Plan IMP DYSPNEA MULTIPLE FACTORS,CHF,COPD PULMONARY HTN ASHD S/P CABG ESRD ON HD AFIB HTN DM PVD CELLULITIS LIKELY OSAS PLAN HD PER RENAL CONTINUE ANTIBIOTICS PER ID INHALED BRONCHODILATORS SUPPLEMENTAL O2 CHECK O2 SAT AT REST AND POST EXERCISE ON RA PFTS OUTPATIENT CHECK SLEEP SCREEN SLEEP STUDIES OUTPATIENT DR LUNA
[2016-05-17] MEDS ORDERED: VANCOMYCIN 1 GRAM (PRE-DOCKED) 250 ML IVPB SCH (12:30)
[2016-05-17] MEDS ORDERED: SODIUM THIOSULFATE 12.5 GM/50 ML VIAL IV ONE (13:00)
[2016-05-17 13:50] LABS: CALCIUM 8.7 mg/dL (8.5-10.1); CREATININE 4.4 mg/dL (0.7-1.3); PHOSPHOROUS 3.5 mg/dL (2.5-4.9)
--- NOTE | 2016-05-17 14:47 | PN ---
Progress Note (short form) - Note Progress Note: Renal Follow up for ESRD Pt seen and examined at the bedside no acute complaints s/p HD yesterday with 1.5kg UF continues to have sob when laying flat and with exertion Vital Signs Temperature 97.6 F 05/17/16 14:38 Pulse Rate 102 H 05/17/16 14:38 Respiratory Rate 22 05/17/16 14:38 Blood Pressure 130/58 05/17/16 14:38 O2 Sat by Pulse Oximetry (%) 92 L 05/17/16 09:00 Intake & Output 05/14/16 05/15/16 05/16/16 05/17/16 23:59 23:59 23:59 23:59 Intake Total 420 560 640 250 Output Total 300 150 Balance 420 560 340 100 Weight 209 lb 9.6 oz 211 lb 6.4 oz 205 lb 2 oz 206 lb 12.8 oz Gen: awake and alert CVS: RRR, No M/R Lungs: CTA, no rales or wheeze Abd: soft NT/ND Ext: Trace edema in LE. Heels and foot in dressing CBC, BMP 05/16/16 05:35 05/17/16 13:15 Laboratory Tests 05/17/16 13:15 Calcium 8.7 Phosphorus 3.5 D Current Medications Apixaban (Eliquis -) 2.5 mg PO BID [facility] Last Admin: 05/17/16 10:18 Dose: 2.5 mg Atorvastatin Calcium (Lipitor -) 10 mg PO HS MARY Last Admin: 05/16/16 21:07 Dose: 10 mg Cholecalciferol (Vitamin D3 -) 1,000 unit PO DAILY MARY Last Admin: 05/17/16 10:18 Dose: 1,000 unit Fenofibric Acid (Trilipix -) 45 mg PO DAILY MARY Last Admin: 05/17/16 10:18 Dose: 45 mg Furosemide (Lasix -) 80 mg PO BIDLASIX MARY Last Admin: 05/17/16 13:10 Dose: Not Given Ceftriaxone Sodium (Rocephin 1gm Ivpb (Pre-Docked)) 50 mls @ 100 mls/hr IVPB DAILY [facility] Last Admin: 05/17/16 10:21 Dose: 100 mls/hr Vancomycin HCl (Vancomycin (Pre-Docked)) 250 mls @ 200 mls/hr IVPB ONCE MARY Stop: 05/18/16 12:29 Metoprolol Succinate (Toprol Xl -) 150 mg PO BID [facility] Last Admin: 05/17/16 10:19 Dose: 150 mg Morphine Sulfate (Morphine Injection -) 4 mg IVPUSH Q6H PRN PRN Reason: PAIN Last Admin: 05/17/16 10:20 Dose: 4 mg Sertraline HCl (Zoloft -) 50 mg PO DAILY [facility] Last Admin: 05/17/16 10:19 Dose: 50 mg Sevelamer Carbonate (Renvela -) 1,600 mg PO TIDCM [facility] Last Admin: 05/17/16 13:09 Dose: Not Given Sitagliptin Phosphate (Januvia -) 25 mg PO ACBK [facility] Last Admin: 05/17/16 06:16 Dose: Not Given Sodium Thiosulfate (Sodium Thiosulfate) 25 gm IV MoWeFr@1300 ONE Stop: 05/19/16 13:01 A/P 60 year old gentleman with PMhx of ESRD (recently started on dialysis), CAD s/p CABG, DM Type 2, Depression, CHF who with LE weakness s/p recent fall and wound on right foot. #ESRD on HD with fluid overload Dialysis today with goal of 2L UF if tolerated goal is to reduce water weight as much as possible to allow for improvement in respiratory status #LE wound/PVD CTA showed several areas of stenosis in the LE Vascular Sx follow up for management continue emperic Abx as per ID #Suspected Caliphyalxis Will start sodium thiosulfate IVPB with dialysis 3x weekly with goal of improving the calcified lesions in the LE will need to monitor serum CO2 and it can cause a worsening metabolic acidosis continue phos binders to reduce CA and phos product Won Weiss DO
--- NOTE | 2016-05-17 15:23 | SPA.PREOP ---
- PRE-OP NOTE Dx: PAD Planned Procedure: LLE angiogram, possible angioplasty Surgeon: eFr Young Consent: To be obtained by surgeon after risks, benefits and alternatives explained to patient. Last Vital Signs Temp Pulse Resp BP Pulse Ox 97.6 F 61 18 107/54 92 L 05/17/16 14:38 05/17/16 14:53 05/17/16 14:53 05/17/16 14:53 05/17/16 09:00 Lab Results WBC 15.0 K/mm3 (4.0-10.0) H 05/16/16 05:35 RBC 3.64 M/mm3 (4.00-5.60) L 05/16/16 05:35 Hgb 10.5 GM/dL (11.7-16.9) L 05/16/16 05:35 Hct 32.6 % (35.4-49) L 05/16/16 05:35 MCV 89.8 fl (80-96) 05/16/16 05:35 MCHC 32.0 g/dl (32.0-35.9) 05/16/16 05:35 RDW 15.6 % (11.9-15.9) 05/16/16 05:35 Plt Count 331 K/MM3 (134-434) 05/16/16 05:35 Sodium 141 mmol/L (136-145) 05/17/16 13:15 Potassium 3.5 mmol/L (3.5-5.1) 05/17/16 13:15 Chloride 100 mmol/L (98-107) 05/17/16 13:15 Carbon Dioxide 31 mmol/L (21-32) 05/17/16 13:15 Anion Gap 10 (8-16) 05/17/16 13:15 BUN 34 mg/dL (7-18) H D 05/17/16 13:15 Creatinine 4.4 mg/dL (0.7-1.3) H 05/17/16 13:15 Random Glucose 141 mg/dL (74-106) H D 05/17/16 13:15 Calcium 8.7 mg/dL (8.5-10.1) 05/17/16 13:15 INR 1.59 (0.82-1.09) H 05/11/16 13:20 - ASSESSMENT/PLAN 1. Make NPO after midnight except po meds 2. GI/DVT PPX 3. Medical optimization / clearance Problem List - Problems (1) Arteriosclerosis of arteries of extremities Assessment/Plan: Patient can eat a light breakfast then make NPO by 8AM Type and Screen ordered Medical optimization / clearance Visit type - Case Type Case Type: ED Admission
[2016-05-17] MEDS: ATORVASTATIN CA 10 MG TABLET (FP) PO SCH (21:05)
--- NOTE | 2016-05-18 00:58 | PN ---
Progress Note, Physician History of Present Illness: Pt seen and examined 05/17/16 however note is being entered now - Current Medication List Current Medications: Active Medications Apixaban (Eliquis -) 2.5 mg PO BID [facility] Last Admin: 05/17/16 21:05 Dose: 2.5 mg Atorvastatin Calcium (Lipitor -) 10 mg PO HS [facility] Last Admin: 05/17/16 21:05 Dose: 10 mg Cholecalciferol (Vitamin D3 -) 1,000 unit PO DAILY [facility] Last Admin: 05/17/16 10:18 Dose: 1,000 unit Fenofibric Acid (Trilipix -) 45 mg PO DAILY [facility] Last Admin: 05/17/16 10:18 Dose: 45 mg Furosemide (Lasix -) 80 mg PO BIDLASIX [facility] Last Admin: 05/17/16 13:10 Dose: Not Given Ceftriaxone Sodium (Rocephin 1gm Ivpb (Pre-Docked)) 50 mls @ 100 mls/hr IVPB DAILY [facility] Last Admin: 05/17/16 10:21 Dose: 100 mls/hr Vancomycin HCl (Vancomycin (Pre-Docked)) 250 mls @ 200 mls/hr IVPB ONCE MARY Stop: 05/18/16 12:29 Last Admin: 05/17/16 17:06 Dose: 200 mls/hr Metoprolol Succinate (Toprol Xl -) 150 mg PO BID [facility] Last Admin: 05/17/16 21:05 Dose: 150 mg Morphine Sulfate (Morphine Injection -) 4 mg IVPUSH Q6H PRN PRN Reason: PAIN Last Admin: 05/17/16 23:04 Dose: 4 mg Sertraline HCl (Zoloft -) 50 mg PO DAILY [facility] Last Admin: 05/17/16 10:19 Dose: 50 mg Sevelamer Carbonate (Renvela -) 1,600 mg PO TIDCM [facility] Last Admin: 05/17/16 17:21 Dose: Not Given Sitagliptin Phosphate (Januvia -) 25 mg PO ACBK [facility] Last Admin: 05/17/16 06:16 Dose: Not Given - Objective Vital Signs: Vital Signs Temperature 98.0 F 05/17/16 17:00 Pulse Rate 108 H 05/17/16 17:00 Respiratory Rate 18 05/17/16 17:00 Blood Pressure 115/66 05/17/16 17:00 O2 Sat by Pulse Oximetry (%) 92 L 05/17/16 09:00 Constitutional: Yes: Well Nourished Neck: Yes: Supple Cardiovascular: Yes: WNL, Regular Rate and Rhythm Respiratory: Yes: WNL, Regular, CTA Bilaterally Gastrointestinal: Yes: WNL, Normal Bowel Sounds, Soft, Abdomen, Obese Extremities: Yes: Other (Lt foot w/ dressings) Labs: CBC, BMP 05/16/16 05:35 05/17/16 13:15 INR, PTT INR 1.59 (0.82-1.09) H 05/11/16 13:20 Problem List - Problems (1) Afib Code(s): I48.91 - UNSPECIFIED ATRIAL FIBRILLATION (3) Cellulitis of foot Code(s): L03.119 - CELLULITIS OF UNSPECIFIED PART OF LIMB (4) HTN (hypertension) Code(s): I10 - ESSENTIAL (PRIMARY) HYPERTENSION (5) Congestive heart failure Code(s): I50.9 - HEART FAILURE, UNSPECIFIED Qualifiers: Congestive heart failure type: systolic Congestive heart failure chronicity: acute on chronic Qualified Code(s): I50.23 - Acute on chronic systolic (congestive) heart failure (6) Diabetes Code(s): E11.9 - TYPE 2 DIABETES MELLITUS WITHOUT COMPLICATIONS (7) End stage renal disease Code(s): N18.6 - END STAGE RENAL DISEASE
[2016-05-18] MEDS: FUROSEMIDE 40 MG TABLET (FP) PO SCH ×2 (05:30→14:38)
[2016-05-18] MEDS: morphine CARPU-JECT 2 MG/1 ML DISP.SYRIN IVPUSH PRN ×2 (05:31→19:56)
[2016-05-18] MEDS: sitaGLIPtin PHOSPHATE 25 MG TABLET (FP) PO SCH (06:19)
[2016-05-18 07:43] LABS: BASOPHIL 0.7 % (0-2.0); EOSINOPHIL 1.3 % (0-4.5); MCH 27.8 pg (25.7-33.7); MCHC 31.1 g/dl (32.0-35.9); MEAN CELL VOLUME 89.4 fl (80-96); MEAN PLT VOLUME 7.7 fl (7.5-11.1); NEUTROPHILS 81.3 % (42.8-82.8); PLATELET COUNT 393 K/MM3 (134-434); RDW 15.6 % (11.9-15.9); WHITE BLOOD COUNT 15.6 K/mm3 (4.0-10.0)
[2016-05-18] MEDS ORDERED: PT OWN MED DRAWER 7, Y5N ONE ×2 (08:31→12:51)
[2016-05-18 08:50] LABS: ALBUMIN 3.4 g/dl (3.4-5.0); BILIRUBIN,TOTAL 0.6 mg/dL (0.2-1.0); CALCIUM 9.4 mg/dL (8.5-10.1); CREATININE 4.5 mg/dL (0.7-1.3); PHOSPHOROUS 3.6 mg/dL (2.5-4.9); TOT PROT 8.4 g/dl (6.4-8.2)
[2016-05-18] MEDS: CHOLECALCIFEROL (VITAMIN D3) 1,000 UNIT TABLET (FP) PO SCH (09:14)
[2016-05-18] MEDS: SERTRALINE HCL 50 MG TABLET (FP) PO SCH (09:14)
[2016-05-18] MEDS: METOPROLOL SUCCINATE 50 MG TAB.SR.24H (FP) PO SCH ×2 (09:15→21:19)
[2016-05-18] MEDS: CEFTRIAXONE 50 ML IVPB SCH (09:15)
[2016-05-18] MEDS: SEVELAMER CARBONATE 800 MG TAB (FP) PO SCH ×2 (09:15→12:53)
[2016-05-18] MEDS: FENOFIBRIC ACID 45 MG CAP PO SCH (09:15)
--- NOTE | 2016-05-18 10:55 | PN ---
Progress Note (short form) - Note Progress Note: Chief Complaint: foot wound History of Present Illness: sob improving, able to lay flat, but still sob at times no cp no palpit, dizziness. ex cigs Current Medications Generic Name Dose Route Start Last Admin Trade Name Freq PRN Reason Stop Dose Admin Apixaban 2.5 mg 05/11/16 22:00 05/17/16 21:05 Eliquis - PO 2.5 mg BID MARY Administration Atorvastatin Calcium 10 mg 05/11/16 22:00 05/17/16 21:05 Lipitor - PO 10 mg HS MARY Administration Cholecalciferol 1,000 unit 05/14/16 11:15 05/18/16 09:14 Vitamin D3 - PO 1,000 unit DAILY MARY Administration Fenofibric Acid 45 mg 05/12/16 10:00 05/18/16 09:15 Trilipix - PO 45 mg DAILY MARY Administration Furosemide 80 mg 05/13/16 06:00 05/18/16 05:30 Lasix - PO 80 mg BIDLASIX MARY Administration Ceftriaxone Sodium 50 mls @ 100 mls/hr 05/12/16 13:15 05/18/16 09:15 Rocephin 1gm Ivpb (Pre-Docked) IVPB 100 mls/hr DAILY MARY Administration Vancomycin HCl 250 mls @ 200 mls/hr 05/17/16 12:30 05/17/16 17:06 Vancomycin (Pre-Docked) IVPB 05/18/16 12:29 200 mls/hr ONCE MARY Administration Metoprolol Succinate 150 mg 05/15/16 22:00 05/18/16 09:15 Toprol Xl - PO 150 mg BID MARY Administration Morphine Sulfate 4 mg 05/15/16 20:38 05/18/16 05:31 Morphine Injection - IVPUSH 4 mg Q6H PRN Administration PAIN Sertraline HCl 50 mg 05/12/16 10:00 05/18/16 09:14 Zoloft - PO 50 mg DAILY MARY Administration Sevelamer Carbonate 1,600 mg 05/13/16 12:00 05/18/16 09:15 Renvela - PO 1,600 mg TIDCM MARY Administration Sitagliptin Phosphate 25 mg 05/12/16 07:00 05/18/16 06:19 Januvia - PO Not Given ACBK MARY Vital Signs Period Temp Pulse Resp BP Sys/Ledbetter Pulse Ox Last 24 Hr 97.4 F-98.4 F 59-108 18-22 105-147/54-77 98-100 Constitutional: Yes: No Distress, Calm Eyes: No: Sclera Icterus HENT: No: Nasal Congestion Cardiovascular: Yes: Pulse Irregular, S1, S2, Other (PMI non diplaced). No: JVD , Gallop, Murmur Respiratory: Yes: bibasilar rales nl effort. No: Accessory Muscle Use, Rales, Wheezes Gastrointestinal: Yes: Normal Bowel Sounds, Soft. No: Tenderness Musculoskeletal: Yes: Other (No kyphosis) Extremities: No: Cold Edema: Yes (trace pretib) Integumentary: No: Jaundice Neurological: Yes: Alert, Oriented (x3) Psychiatric: No: Agitated Labs: CBC, BMP 05/18/16 06:25 05/18/16 08:00 tele: AFL, rate controlled echo 09/2015: mod lve, mild-mod dec lvef, global HK, nl rv, mod-sev mr, sev tr, marixa, nl rvsp echo 03/2016: mild lve, mod dec lvef, ant HK, nl rv size, marixa, mild mr, mod tr, rvsp 40-50 a/p: 60 m hx htn, hld, dm, cabg (04/2006), ESRD, afib/flutter, syst chf, esrd on HD, here with infected foot wound chronic syst chf: -vol status stable, no signs of chf at present -cont po lasix 80 bid and HD for vol management (started 05/12) -recent echo 03/2016 here similar to 09/2015, shows mod reduced lvef--? etiology -need accurate assessment of AF rate control (r/o tachy-CMP) and burden ( paroxysmal) as outpt -still with orthopnea, cont frequent HD for vol management as bp tolerates -con't bb -holding diovan 80 qd, hydralazine 25 bid, and isordil 10 qd given low bp possibly from sepsis, resume when bp improved afib/flutter: -initially not well controlled--HRs to 140s at times. (cannot use dilt with chronic syst chf, low dose digoxin (HD pt) hi risk toxicity. Amio or consider AVN ablation/PPM if cannot adequately control HRs) -increased toprol 100 bid to 150 bid here, hr better now. prefer not to hold it on HD days, if bp can tolerate -cont eliquis 2.5 bid (presyncopal consistently following eliquis 5mg doses at home--???)--hope to incr later once chf status and bp drops from HD are stabilized ESRD -cont hd per renal -fluid removal as disc'd above htn: -bp's on low side here, possibly due to infection/cellulitis so holding diovan, nitrate, hydralazine for now, resume when bp stable -related to body equilibrating to recent start of HD -LH/presyncope episodes at home, ? (highly unusual) med effect (eliquis 5mg)-- suspect more likely related to hi chf med burden with intravasc fluid shifts from HD hld: -cont home statin cad s/p cabg: -ce's neg x2, EKG without ischemic changes, no signs chf -recent echo w/o sig change from prior -cont statin, bb, ac le cellulitis, possible gangrene, PAD: -plans per vascular surgery, ID -ok to hold eliquis if needed for debridement, angio
--- NOTE | 2016-05-18 12:47 | PN ---
Progress Note (short form) - Note Progress Note: Renal Follow up for ESRD Pt seen and examined at the bedside no complaints has not slept well s/p dialysis yesterday with 2kg UF for angioplasty today Vital Signs Temperature 97.6 F 05/18/16 08:56 Pulse Rate 104 H 05/18/16 08:56 Respiratory Rate 18 05/18/16 08:57 Blood Pressure 115/61 05/18/16 08:56 O2 Sat by Pulse Oximetry (%) 98 05/18/16 08:57 Intake & Output 05/15/16 05/16/16 05/17/16 05/18/16 23:59 23:59 23:59 23:59 Intake Total 560 640 730 250 Output Total 300 150 Balance 560 340 580 250 Weight 211 lb 6.4 oz 205 lb 2 oz 206 lb 12.8 oz 204 lb 12.8 oz Gen: awake and alert CVS: RRR, No M/R Lungs: CTA, no rales or wheeze Abd: soft NT/ND Ext: Trace edema in LE. Heels and foot in dressing CBC, BMP 05/18/16 06:25 05/18/16 08:00 Laboratory Tests 05/18/16 08:00 Calcium 9.4 Phosphorus 3.6 Albumin 3.4 D Current Medications Apixaban (Eliquis -) 2.5 mg PO BID REPLACED BY [facility] Last Admin: 05/17/16 21:05 Dose: 2.5 mg Atorvastatin Calcium (Lipitor -) 10 mg PO HS REPLACED BY [facility] Last Admin: 05/17/16 21:05 Dose: 10 mg Cholecalciferol (Vitamin D3 -) 1,000 unit PO DAILY REPLACED BY [facility] Last Admin: 05/18/16 09:14 Dose: 1,000 unit Fenofibric Acid (Trilipix -) 45 mg PO DAILY REPLACED BY [facility] Last Admin: 05/18/16 09:15 Dose: 45 mg Furosemide (Lasix -) 80 mg PO BIDLASIX REPLACED BY [facility] Last Admin: 05/18/16 05:30 Dose: 80 mg Ceftriaxone Sodium (Rocephin 1gm Ivpb (Pre-Docked)) 50 mls @ 100 mls/hr IVPB DAILY REPLACED BY [facility] Last Admin: 05/18/16 09:15 Dose: 100 mls/hr Metoprolol Succinate (Toprol Xl -) 150 mg PO BID REPLACED BY [facility] Last Admin: 05/18/16 09:15 Dose: 150 mg Morphine Sulfate (Morphine Injection -) 4 mg IVPUSH Q6H PRN PRN Reason: PAIN Last Admin: 05/18/16 05:31 Dose: 4 mg Sertraline HCl (Zoloft -) 50 mg PO DAILY REPLACED BY [facility] Last Admin: 05/18/16 09:14 Dose: 50 mg Sevelamer Carbonate (Renvela -) 1,600 mg PO TIDCM REPLACED BY [facility] Last Admin: 05/18/16 09:15 Dose: 1,600 mg Sitagliptin Phosphate (Januvia -) 25 mg PO ACBK REPLACED BY [facility] Last Admin: 05/18/16 06:19 Dose: Not Given A/P 60 year old gentleman with PMhx of ESRD (recently started on dialysis), CAD s/p CABG, DM Type 2, Depression, CHF who with LE weakness s/p recent fall and wound on right foot. #ESRD on HD with fluid overload no acute indication for [employer] today Next HD planned for tomorrow with UF as tolerated #LE wound/PVD CTA showed several areas of stenosis in the LE For angiogram today and possible angioplasty #Suspected Caliphyalxis Continue sodium thiosulfate IVPB with dialysis 3x weekly Won Weiss DO
[2016-05-18] MEDS: APIXABAN 2.5 MG TABLET PO SCH (12:48)
[2016-05-18] MEDS ORDERED: LIDOCAINE HCL 1%, 10 MG/ML (20ML VIAL) ONE (13:24)
[2016-05-18] MEDS ORDERED: HEPARIN NA (PORCINE) 5,000 UNITS/ML 1ML VIAL ONE (13:24)
--- NOTE | 2016-05-18 15:38 | PN ---
Progress Note (short form) - Note Progress Note: No CP or SOB. For angioplasty. Intake & Output 05/15/16 05/16/16 05/17/16 05/18/16 23:59 23:59 23:59 23:59 Intake Total 560 640 730 250 Output Total 300 150 Balance 560 340 580 250 Weight 211 lb 6.4 oz 205 lb 2 oz 206 lb 12.8 oz 204 lb 12.8 oz Last Vital Signs Temp Pulse Resp BP Pulse Ox 97.6 F 104 H 18 115/61 98 05/18/16 08:56 05/18/16 08:56 05/18/16 08:57 05/18/16 08:56 05/18/16 08:57 Active Medications Apixaban (Eliquis -) 2.5 mg PO BID [facility] Last Admin: 05/18/16 12:48 Dose: Not Given Atorvastatin Calcium (Lipitor -) 10 mg PO HS [facility] Last Admin: 05/17/16 21:05 Dose: 10 mg Cholecalciferol (Vitamin D3 -) 1,000 unit PO DAILY [facility] Last Admin: 05/18/16 09:14 Dose: 1,000 unit Fenofibric Acid (Trilipix -) 45 mg PO DAILY [facility] Last Admin: 05/18/16 09:15 Dose: 45 mg Furosemide (Lasix -) 80 mg PO BIDLASIX [facility] Last Admin: 05/18/16 14:38 Dose: Not Given Ceftriaxone Sodium (Rocephin 1gm Ivpb (Pre-Docked)) 50 mls @ 100 mls/hr IVPB DAILY [facility] Last Admin: 05/18/16 09:15 Dose: 100 mls/hr Vancomycin HCl (Vancomycin (Pre-Docked)) 250 mls @ 250 mls/hr IVPB ONCE ONE PRN Reason: Protocol Stop: 05/19/16 08:59 Metoprolol Succinate (Toprol Xl -) 150 mg PO BID [facility] Last Admin: 05/18/16 09:15 Dose: 150 mg Morphine Sulfate (Morphine Injection -) 4 mg IVPUSH Q6H PRN PRN Reason: PAIN Last Admin: 05/18/16 05:31 Dose: 4 mg Sertraline HCl (Zoloft -) 50 mg PO DAILY [facility] Last Admin: 05/18/16 09:14 Dose: 50 mg Sevelamer Carbonate (Renvela Powder Packet -) 1.6 gm PO TIDCM [facility] Sitagliptin Phosphate (Januvia -) 25 mg PO ACBK [facility] Last Admin: 05/18/16 06:19 Dose: Not Given Constitutional: Yes: NAD Eyes: Yes: WNL HENT: Yes: WNL Neck: Yes: WNL Cardiovascular: Yes: Pulse Irregular, S1, S2 Respiratory: Yes: scattered rhonchi at the bases Gastrointestinal: Yes: Normal Bowel Sounds, Soft Extremities: Yes: Erythema Edema: trace Labs: Laboratory Results - last 24 hr 05/18/16 05/18/16 05/18/16 05:21 06:25 08:00 WBC 15.6 H RBC 4.07 Hgb 11.3 L Hct 36.4 MCV 89.4 MCHC 31.1 L RDW 15.6 Plt Count 393 MPV 7.7 Neutrophils % 81.3 Lymphocytes % 10.1 Monocytes % 6.6 Eosinophils % 1.3 Basophils % 0.7 Sodium 137 Potassium 3.9 Chloride 96 L Carbon Dioxide 30 Anion Gap 11 BUN 28 H Creatinine 4.5 H Creat Clearance w eGFR 13.35 POC Glucometer 88 Random Glucose 94 D Calcium 9.4 Phosphorus 3.6 Total Bilirubin 0.6 AST 21 ALT 20 Alkaline Phosphatase 71 D Total Protein 8.4 H D Albumin 3.4 D Random Vancomycin 21.087 Problem List - Problems (1) Afib Code(s): I48.91 - UNSPECIFIED ATRIAL FIBRILLATION (2) CHF exacerbation Code(s): I50.9 - HEART FAILURE, UNSPECIFIED Qualifiers: Congestive heart failure type: unspecified congestive heart failure type Qualified Code(s): I50.9 - Heart failure, unspecified (3) Cellulitis and abscess of foot Code(s): L03.119 - CELLULITIS OF UNSPECIFIED PART OF LIMB L02.619 - CUTANEOUS ABSCESS OF UNSPECIFIED FOOT (4) Microangiopathy, 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 (5) Anemia Code(s): D64.9 - ANEMIA, UNSPECIFIED Qualifiers: Anemia type: unspecified type Qualified Code(s): D64.9 - Anemia, unspecified (6) Atrial fibrillation with RVR Code(s): I48.91 - UNSPECIFIED ATRIAL FIBRILLATION (7) Bilateral shoulder pain Code(s): M25.511 - PAIN IN RIGHT SHOULDER M25.512 - PAIN IN LEFT SHOULDER (8) Cellulitis of foot Code(s): L03.119 - CELLULITIS OF UNSPECIFIED PART OF LIMB (9) Dyspnea on exertion Code(s): R06.09 - OTHER FORMS OF DYSPNEA (10) HTN (hypertension) Code(s): I10 - ESSENTIAL (PRIMARY) HYPERTENSION (11) Atrial flutter Code(s): I48.92 - UNSPECIFIED ATRIAL FLUTTER (12) CAD, multiple vessel Code(s): I25.10 - ATHSCL HEART DISEASE OF [place] CORONARY ARTERY W/O ANG PCTRS (13) Congestive heart failure Code(s): I50.9 - HEART FAILURE, UNSPECIFIED Qualifiers: Congestive heart failure type: systolic Congestive heart failure chronicity: acute on chronic Qualified Code(s): I50.23 - Acute on chronic systolic (congestive) heart failure (14) Diabetes Code(s): E11.9 - TYPE 2 DIABETES MELLITUS WITHOUT COMPLICATIONS (15) End stage renal disease Code(s): N18.6 - END STAGE RENAL DISEASE Assessment/Plan IMP DYSPNEA MULTIPLE FACTORS,CHF,COPD PULMONARY HTN ASHD S/P CABG ESRD ON HD AFIB HTN DM PVD CELLULITIS LIKELY OSAS PLAN FOR ANGIOPLASTY HD PER RENAL ABX INHALED BRONCHODILATORS SUPPLEMENTAL O2 PFTS OUTPATIENT SLEEP WORK UP AN OUTPATIENT Dr Caceres
--- NOTE | 2016-05-18 15:40 | PN ---
Progress Note, Physician History of Present Illness: No c/o leg pain No fevet/ chills - Current Medication List Current Medications: Active Medications Apixaban (Eliquis -) 2.5 mg PO BID [facility] Last Admin: 05/18/16 12:48 Dose: Not Given Atorvastatin Calcium (Lipitor -) 10 mg PO HS [facility] Last Admin: 05/17/16 21:05 Dose: 10 mg Cholecalciferol (Vitamin D3 -) 1,000 unit PO DAILY [facility] Last Admin: 05/18/16 09:14 Dose: 1,000 unit Fenofibric Acid (Trilipix -) 45 mg PO DAILY [facility] Last Admin: 05/18/16 09:15 Dose: 45 mg Furosemide (Lasix -) 80 mg PO BIDLASIX [facility] Last Admin: 05/18/16 14:38 Dose: Not Given Ceftriaxone Sodium (Rocephin 1gm Ivpb (Pre-Docked)) 50 mls @ 100 mls/hr IVPB DAILY [facility] Last Admin: 05/18/16 09:15 Dose: 100 mls/hr Vancomycin HCl (Vancomycin (Pre-Docked)) 250 mls @ 250 mls/hr IVPB ONCE ONE PRN Reason: Protocol Stop: 05/19/16 08:59 Metoprolol Succinate (Toprol Xl -) 150 mg PO BID [facility] Last Admin: 05/18/16 09:15 Dose: 150 mg Morphine Sulfate (Morphine Injection -) 4 mg IVPUSH Q6H PRN PRN Reason: PAIN Last Admin: 05/18/16 05:31 Dose: 4 mg Sertraline HCl (Zoloft -) 50 mg PO DAILY [facility] Last Admin: 05/18/16 09:14 Dose: 50 mg Sevelamer Carbonate (Renvela Powder Packet -) 1.6 gm PO TIDCM [facility] Sitagliptin Phosphate (Januvia -) 25 mg PO ACBK [facility] Last Admin: 05/18/16 06:19 Dose: Not Given - Objective Vital Signs: Vital Signs Temperature 97.6 F 05/18/16 08:56 Pulse Rate 104 H 05/18/16 08:56 Respiratory Rate 18 05/18/16 08:57 Blood Pressure 115/61 05/18/16 08:56 O2 Sat by Pulse Oximetry (%) 98 05/18/16 08:57 Constitutional: Yes: No Distress Eyes: Yes: Conjunctiva Clear Cardiovascular: Yes: Regular Rate and Rhythm, S1, S2 Respiratory: Yes: CTA Bilaterally Gastrointestinal: Yes: Normal Bowel Sounds, Soft. No: Tenderness Extremities: Yes: Other (dressing in place L LE; would not let me remove it) Labs: CBC, BMP 05/18/16 06:25 05/18/16 08:00 INR, PTT INR 1.59 (0.82-1.09) H 05/11/16 13:20 Assessment/Plan Cellulitis LE Non-healing great toe ulcers Gangrene L 4th toe ESRD Chronic venous stasis dermatitis Continue ceftriaxone vancomycin level am
[2016-05-18] MEDS: SEVELAMER CARBONATE 0.8 GM POWDER PACKET PO SCH (17:53)
[2016-05-18] MEDS: ATORVASTATIN CA 10 MG TABLET (FP) PO SCH (21:18)
--- NOTE | 2016-05-18 23:44 | PN ---
Progress Note, Physician - Current Medication List Current Medications: Active Medications Atorvastatin Calcium (Lipitor -) 10 mg PO HS [facility] Last Admin: 05/18/16 21:18 Dose: 10 mg Cholecalciferol (Vitamin D3 -) 1,000 unit PO DAILY [facility] Last Admin: 05/18/16 09:14 Dose: 1,000 unit Fenofibric Acid (Trilipix -) 45 mg PO DAILY [facility] Last Admin: 05/18/16 09:15 Dose: 45 mg Furosemide (Lasix -) 80 mg PO BIDLASIX [facility] Last Admin: 05/18/16 14:38 Dose: Not Given Ceftriaxone Sodium (Rocephin 1gm Ivpb (Pre-Docked)) 50 mls @ 100 mls/hr IVPB DAILY [facility] Last Admin: 05/18/16 09:15 Dose: 100 mls/hr Vancomycin HCl (Vancomycin (Pre-Docked)) 250 mls @ 250 mls/hr IVPB ONCE ONE PRN Reason: Protocol Stop: 05/19/16 08:59 Metoprolol Succinate (Toprol Xl -) 150 mg PO BID [facility] Last Admin: 05/18/16 21:19 Dose: 150 mg Sertraline HCl (Zoloft -) 50 mg PO DAILY [facility] Last Admin: 05/18/16 09:14 Dose: 50 mg Sevelamer Carbonate (Renvela Powder Packet -) 1.6 gm PO TIDCM [facility] Last Admin: 05/18/16 17:53 Dose: Not Given Sitagliptin Phosphate (Januvia -) 25 mg PO ACBK [facility] Last Admin: 05/18/16 06:19 Dose: Not Given - Objective Vital Signs: Vital Signs Temperature 97.6 F 05/18/16 20:51 Pulse Rate 106 H 05/18/16 20:51 Respiratory Rate 20 05/18/16 20:51 Blood Pressure 114/88 05/18/16 20:51 O2 Sat by Pulse Oximetry (%) 94 L 05/18/16 21:00 Constitutional: Yes: Well Nourished Neck: Yes: Supple Cardiovascular: Yes: WNL, Regular Rate and Rhythm Respiratory: Yes: WNL, Regular, CTA Bilaterally Gastrointestinal: Yes: WNL, Normal Bowel Sounds, Soft Extremities: Yes: Other (LT foot w/ dressing) Labs: CBC, BMP 05/18/16 06:25 05/18/16 08:00 INR, PTT INR 1.59 (0.82-1.09) H 05/11/16 13:20 Problem List - Problems (1) Dyspnea Assessment/Plan: Multifactorial Due to COPD vs sleep apnea Out pt PFT's/sleep study Cont inhalers Code(s): R06.00 - DYSPNEA, UNSPECIFIED (2) Afib Assessment/Plan: Heart rate controlled Eliquis on hold for angioplasty of lower extremities Code(s): I48.91 - UNSPECIFIED ATRIAL FIBRILLATION (3) Arteriosclerosis of arteries of extremities Assessment/Plan: Pt scheduled for angioplasty of lower extremities (4) Cellulitis of foot Assessment/Plan: Sepsis Cont IV ceftriaxone/vanco Cont wound care Code(s): L03.119 - CELLULITIS OF UNSPECIFIED PART OF LIMB (5) HTN (hypertension) Assessment/Plan: BP stable Cont meotprolol Code(s): I10 - ESSENTIAL (PRIMARY) HYPERTENSION (6) Congestive heart failure Assessment/Plan: Cont lasix Monitor electrolytes Code(s): I50.9 - HEART FAILURE, UNSPECIFIED Qualifiers: Congestive heart failure type: systolic Congestive heart failure chronicity: acute on chronic Qualified Code(s): I50.23 - Acute on chronic systolic (congestive) heart failure (7) Diabetes Assessment/Plan: Cont januvia Code(s): E11.9 - TYPE 2 DIABETES MELLITUS WITHOUT COMPLICATIONS (8) End stage renal disease Assessment/Plan: Dialysis as per renal Monitor electrolytes Cont renvela Code(s): N18.6 - END STAGE RENAL DISEASE (9) Anemia Assessment/Plan: Due to chronic dz Code(s): D64.9 - ANEMIA, UNSPECIFIED Qualifiers: Anemia type: unspecified type Qualified Code(s): D64.9 - Anemia, unspecified (10) HLD (hyperlipidemia) Assessment/Plan: Cont lipitor/fenofibrate Code(s): E78.5 - HYPERLIPIDEMIA, UNSPECIFIED
[2016-05-19] MEDS ORDERED: morphine CARPU-JECT 4 MG/1 ML DISP.SYRIN IVPUSH PRN (00:43)
[2016-05-19] MEDS: morphine CARPU-JECT 2 MG/1 ML DISP.SYRIN IVPUSH PRN ×3 (01:47→20:01)
[2016-05-19] MEDS: FUROSEMIDE 40 MG TABLET (FP) PO SCH ×2 (06:20→16:33)
[2016-05-19] MEDS: sitaGLIPtin PHOSPHATE 25 MG TABLET (FP) PO SCH (06:20)
[2016-05-19] MEDS: METOPROLOL SUCCINATE 50 MG TAB.SR.24H (FP) PO SCH ×2 (09:17→21:44)
[2016-05-19] MEDS: CHOLECALCIFEROL (VITAMIN D3) 1,000 UNIT TABLET (FP) PO SCH (09:17)
[2016-05-19] MEDS: SERTRALINE HCL 50 MG TABLET (FP) PO SCH (09:17)
[2016-05-19] MEDS: SEVELAMER CARBONATE 0.8 GM POWDER PACKET PO SCH ×3 (09:18→16:34)
[2016-05-19] MEDS: CEFTRIAXONE 50 ML IVPB SCH (09:18)
[2016-05-19] MEDS: FENOFIBRIC ACID 45 MG CAP PO SCH (09:19)
--- NOTE | 2016-05-19 10:39 | PN ---
Progress Note (short form) - Note Progress Note: Chief Complaint: foot wound History of Present Illness: sob improving, able to lay flat, but still sob at times no cp no palpit, dizziness. ex cigs Current Medications Generic Name Dose Route Start Last Admin Trade Name Freq PRN Reason Stop Dose Admin Atorvastatin Calcium 10 mg 05/11/16 22:00 05/18/16 21:18 Lipitor - PO 10 mg HS [facility]ARY Administration Cholecalciferol 1,000 unit 05/14/16 11:15 05/19/16 09:17 Vitamin D3 - PO 1,000 unit DAILY [facility]ARY Administration Fenofibric Acid 45 mg 05/12/16 10:00 05/19/16 09:19 Trilipix - PO 45 mg DAILY [facility] Administration Furosemide 80 mg 05/13/16 06:00 05/19/16 06:20 Lasix - PO Not Given BIDLASIX [facility]ARY Ceftriaxone Sodium 50 mls @ 100 mls/hr 05/12/16 13:15 05/19/16 09:18 Rocephin 1gm Ivpb (Pre-Docked) IVPB 100 mls/hr DAILY [facility] Administration Vancomycin HCl 250 mls @ 250 mls/hr 05/19/16 08:00 Vancomycin (Pre-Docked) IVPB 05/19/16 08:59 ONCE ONE Protocol Metoprolol Succinate 150 mg 05/15/16 22:00 05/19/16 09:17 Toprol Xl - PO 150 mg BID [facility] Administration Morphine Sulfate 4 mg 05/19/16 01:39 05/19/16 09:17 Morphine Injection - IVPUSH 4 mg Q6H PRN Administration PAIN Sertraline HCl 50 mg 05/12/16 10:00 05/19/16 09:17 Zoloft - PO 50 mg DAILY [facility] Administration Sevelamer Carbonate 1.6 gm 05/18/16 17:30 05/19/16 09:18 Renvela Powder Packet - PO Not Given TIDCM [facility] Sitagliptin Phosphate 25 mg 05/12/16 07:00 05/19/16 06:20 Januvia - PO Not Given ACBK [facility] Vital Signs Period Temp Pulse Resp BP Sys/Ledbetter Pulse Ox Last 24 Hr 97.4 F-98.0 F 71-106 18-20 114-130/55-88 94-95 Constitutional: Yes: No Distress, Calm Eyes: No: Sclera Icterus HENT: No: Nasal Congestion Cardiovascular: Yes: Pulse Irregular, S1, S2, Other (PMI non diplaced). No: JVD , Gallop, Murmur Respiratory: Yes: bibasilar rales nl effort. No: Accessory Muscle Use, Rales, Wheezes Gastrointestinal: Yes: Normal Bowel Sounds, Soft. No: Tenderness Musculoskeletal: Yes: Other (No kyphosis) Extremities: No: Cold Edema: Yes (trace pretib) Integumentary: No: Jaundice Neurological: Yes: Alert, Oriented (x3) Psychiatric: No: Agitated Labs: CBC, BMP 05/18/16 06:25 05/18/16 08:00 tele: AFL, rate controlled echo 09/2015: mod lve, mild-mod dec lvef, global HK, nl rv, mod-sev mr, sev tr, marixa, nl rvsp echo 03/2016: mild lve, mod dec lvef, ant HK, nl rv size, marixa, mild mr, mod tr, rvsp 40-50 a/p: 60 m hx htn, hld, dm, cabg (04/2006), ESRD, afib/flutter, syst chf, esrd on HD, here with infected foot wound chronic syst chf: -vol status stable, no signs of chf at present -cont po lasix 80 bid and HD for vol management (started 05/12) -recent echo 03/2016 here similar to 09/2015, shows mod reduced lvef--? etiology -need accurate assessment of AF rate control (r/o tachy-CMP) and burden ( paroxysmal) as outpt -still with orthopnea, cont HD/UF for vol management -con't bb -holding diovan 80 qd, hydralazine 25 bid, and isordil 10 qd given low bp possibly from sepsis, resume when bp improved afib/flutter: -initially not well controlled--HRs to 140s at times. (cannot use dilt with chronic syst chf, low dose digoxin (HD pt) hi risk toxicity. Amio or consider AVN ablation/PPM if cannot adequately control HRs) -increased toprol 100 bid to 150 bid here, hr better now. prefer not to hold it on HD days, if bp can tolerate -cont eliquis 2.5 bid (presyncopal consistently following eliquis 5mg doses at home--???)--hope to incr later once chf status and bp drops from HD are stabilized ESRD -cont hd per renal -fluid removal as disc'd above htn: -bp's on low side here, possibly due to infection/cellulitis so holding diovan, nitrate, hydralazine for now, resume when bp stable -related to body equilibrating to recent start of HD -LH/presyncope episodes at home, ? (highly unusual) med effect (eliquis 5mg)-- suspect more likely related to hi chf med burden with intravasc fluid shifts from HD hld: -cont home statin cad s/p cabg: -ce's neg x2, EKG without ischemic changes, no signs chf -recent echo w/o sig change from prior -cont statin, bb, ac le cellulitis, possible gangrene, PAD: -plans per vascular surgery, ID -ok to hold eliquis if needed for debridement, angio
--- NOTE | 2016-05-19 11:40 | PN ---
Progress Note, Physician History of Present Illness: PULMONARY ALERT,+SOB WHEN LAYING DOWN,-CP.PT FOR ANGIOPLASTY TODAY - Current Medication List Current Medications: Active Medications Atorvastatin Calcium (Lipitor -) 10 mg PO HS [facility] Last Admin: 05/18/16 21:18 Dose: 10 mg Cholecalciferol (Vitamin D3 -) 1,000 unit PO DAILY [facility] Last Admin: 05/19/16 09:17 Dose: 1,000 unit Fenofibric Acid (Trilipix -) 45 mg PO DAILY [facility] Last Admin: 05/19/16 09:19 Dose: 45 mg Furosemide (Lasix -) 80 mg PO BIDLASIX [facility] Last Admin: 05/19/16 06:20 Dose: Not Given Ceftriaxone Sodium (Rocephin 1gm Ivpb (Pre-Docked)) 50 mls @ 100 mls/hr IVPB DAILY [facility] Last Admin: 05/19/16 09:18 Dose: 100 mls/hr Vancomycin HCl (Vancomycin (Pre-Docked)) 250 mls @ 250 mls/hr IVPB ONCE ONE PRN Reason: Protocol Stop: 05/19/16 08:59 Metoprolol Succinate (Toprol Xl -) 150 mg PO BID [facility] Last Admin: 05/19/16 09:17 Dose: 150 mg Morphine Sulfate (Morphine Injection -) 4 mg IVPUSH Q6H PRN PRN Reason: PAIN Last Admin: 05/19/16 09:17 Dose: 4 mg Sertraline HCl (Zoloft -) 50 mg PO DAILY [facility] Last Admin: 05/19/16 09:17 Dose: 50 mg Sevelamer Carbonate (Renvela Powder Packet -) 1.6 gm PO TIDCM [facility] Last Admin: 05/19/16 09:18 Dose: Not Given Sitagliptin Phosphate (Januvia -) 25 mg PO ACBK [facility] Last Admin: 05/19/16 06:20 Dose: Not Given - Objective Vital Signs: Vital Signs Temperature 97.8 F 05/19/16 08:41 Pulse Rate 71 05/19/16 08:41 Respiratory Rate 18 05/19/16 08:41 Blood Pressure 127/75 05/19/16 08:41 O2 Sat by Pulse Oximetry (%) 95 05/19/16 08:00 Constitutional: Yes: Well Nourished, Calm Eyes: Yes: WNL HENT: Yes: WNL Neck: Yes: WNL Cardiovascular: Yes: Pulse Irregular, S1, S2 Respiratory: Yes: Rales (BIBASILAR RALES) Gastrointestinal: Yes: Normal Bowel Sounds, Soft Extremities: Yes: WNL Edema: Yes Labs: CBC, BMP Problem List - Problems (1) Afib Code(s): I48.91 - UNSPECIFIED ATRIAL FIBRILLATION (3) CHF exacerbation Code(s): I50.9 - HEART FAILURE, UNSPECIFIED Qualifiers: Congestive heart failure type: unspecified congestive heart failure type Qualified Code(s): I50.9 - Heart failure, unspecified (4) Cellulitis and abscess of foot Code(s): L03.119 - CELLULITIS OF UNSPECIFIED PART OF LIMB L02.619 - CUTANEOUS ABSCESS OF UNSPECIFIED FOOT (5) Microangiopathy, 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 (6) Anemia Code(s): D64.9 - ANEMIA, UNSPECIFIED Qualifiers: Anemia type: unspecified type Qualified Code(s): D64.9 - Anemia, unspecified (7) Atrial fibrillation with RVR Code(s): I48.91 - UNSPECIFIED ATRIAL FIBRILLATION (8) Bilateral shoulder pain Code(s): M25.511 - PAIN IN RIGHT SHOULDER M25.512 - PAIN IN LEFT SHOULDER (9) Cellulitis of foot Code(s): L03.119 - CELLULITIS OF UNSPECIFIED PART OF LIMB (10) Dyspnea on exertion Code(s): R06.09 - OTHER FORMS OF DYSPNEA (11) HTN (hypertension) Code(s): I10 - ESSENTIAL (PRIMARY) HYPERTENSION (12) Atrial flutter Code(s): I48.92 - UNSPECIFIED ATRIAL FLUTTER (13) CAD, multiple vessel Code(s): I25.10 - ATHSCL HEART DISEASE OF [place] CORONARY ARTERY W/O ANG PCTRS (14) Congestive heart failure Code(s): I50.9 - HEART FAILURE, UNSPECIFIED Qualifiers: Congestive heart failure type: systolic Congestive heart failure chronicity: acute on chronic Qualified Code(s): I50.23 - Acute on chronic systolic (congestive) heart failure (15) Diabetes Code(s): E11.9 - TYPE 2 DIABETES MELLITUS WITHOUT COMPLICATIONS (16) End stage renal disease Code(s): N18.6 - END STAGE RENAL DISEASE Assessment/Plan IMP DYSPNEA MULTIPLE FACTORS,CHF,COPD PULMONARY HTN ASHD S/P CABG ESRD ON HD AFIB HTN DM PVD CELLULITIS LIKELY OSAS PLAN HD PER RENAL CONTINUE ANTIBIOTICS PER ID INHALED BRONCHODILATORS SUPPLEMENTAL O2 CHECK O2 SAT AT REST AND POST EXERCISE ON RA PFTS OUTPATIENT SLEEP STUDIES OUTPATIENT ANGIOPLASTY TODAY DR LUNA
--- NOTE | 2016-05-19 12:32 | PN ---
Progress Note (short form) - Note Progress Note: Renal Follow up for ESRD Pt seen and examined during dialysis BP stable, Goal UF is 2.5L tunneled HD catheter functioning well no sob or chest pain angioplasty rescheduled for today Vital Signs Temperature 97.8 F 05/19/16 08:41 Pulse Rate 71 05/19/16 08:41 Respiratory Rate 18 05/19/16 08:41 Blood Pressure 127/75 05/19/16 08:41 O2 Sat by Pulse Oximetry (%) 95 05/19/16 08:00 Gen: awake and alert CVS: RRR, No M/R Lungs: CTA, no rales or wheeze Abd: soft NT/ND Ext: Trace edema in LE. Heels and foot in dressing CBC, BMP 05/18/16 06:25 05/18/16 08:00 Laboratory Tests 05/18/16 08:00 Random Glucose 94 D Calcium 9.4 Phosphorus 3.6 Todays labs penidng Current Medications Atorvastatin Calcium (Lipitor -) 10 mg PO HS [facility] Last Admin: 05/18/16 21:18 Dose: 10 mg Cholecalciferol (Vitamin D3 -) 1,000 unit PO DAILY [facility] Last Admin: 05/19/16 09:17 Dose: 1,000 unit Fenofibric Acid (Trilipix -) 45 mg PO DAILY [facility] Last Admin: 05/19/16 09:19 Dose: 45 mg Furosemide (Lasix -) 80 mg PO BIDLASIX [facility] Last Admin: 05/19/16 06:20 Dose: Not Given Ceftriaxone Sodium (Rocephin 1gm Ivpb (Pre-Docked)) 50 mls @ 100 mls/hr IVPB DAILY [facility] Last Admin: 05/19/16 09:18 Dose: 100 mls/hr Vancomycin HCl (Vancomycin (Pre-Docked)) 250 mls @ 250 mls/hr IVPB ONCE ONE PRN Reason: Protocol Stop: 05/19/16 08:59 Metoprolol Succinate (Toprol Xl -) 150 mg PO BID [facility] Last Admin: 05/19/16 09:17 Dose: 150 mg Morphine Sulfate (Morphine Injection -) 4 mg IVPUSH Q6H PRN PRN Reason: PAIN Last Admin: 05/19/16 09:17 Dose: 4 mg Sertraline HCl (Zoloft -) 50 mg PO DAILY [facility] Last Admin: 05/19/16 09:17 Dose: 50 mg Sevelamer Carbonate (Renvela Powder Packet -) 1.6 gm PO TIDCM [facility] Last Admin: 05/19/16 11:48 Dose: Not Given Sitagliptin Phosphate (Januvia -) 25 mg PO ACBK [facility] Last Admin: 05/19/16 06:20 Dose: Not Given A/P 60 year old gentleman with PMhx of ESRD (recently started on dialysis), CAD s/p CABG, DM Type 2, Depression, CHF who with LE weakness s/p recent fall and wound on right foot. 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
[2016-05-19] MEDS ORDERED: VANCOMYCIN 1 GRAM (PRE-DOCKED) 250 ML IVPB ONE (12:45)
[2016-05-19] MEDS ORDERED: SODIUM THIOSULFATE 12.5 GM/50 ML VIAL IV SCH (13:00)
[2016-05-19 13:18] LABS: MCH 28.1 pg (25.7-33.7); MCHC 31.5 g/dl (32.0-35.9); MEAN CELL VOLUME 89.1 fl (80-96); MEAN PLT VOLUME 7.8 fl (7.5-11.1); PLATELET COUNT 325 K/MM3 (134-434); RDW 15.3 % (11.9-15.9); WHITE BLOOD COUNT 12.6 K/mm3 (4.0-10.0)
[2016-05-19 13:44] LABS: ALBUMIN 2.9 g/dl (3.4-5.0); BILIRUBIN,TOTAL 0.4 mg/dL (0.2-1.0); CALCIUM 8.7 mg/dL (8.5-10.1); CREATININE 4.6 mg/dL (0.7-1.3); PHOSPHOROUS 3.6 mg/dL (2.5-4.9); TOT PROT 7.2 g/dl (6.4-8.2)
[2016-05-19] MEDS: SODIUM THIOSULFATE 12.5 GM/50 ML VIAL IV SCH (14:05)
[2016-05-19] MEDS ORDERED: LIDOCAINE HCL 1%, 10 MG/ML (20ML VIAL) ONE (15:40)
[2016-05-19] MEDS ORDERED: HEPARIN NA (PORCINE) 5,000 UNITS/ML 1ML VIAL ONE (15:40)
[2016-05-19] MEDS ORDERED: PROPOFOL 20 ML ONE ×2 (16:19)
[2016-05-19] MEDS ORDERED: MIDAZOLAM HCL 2 MG/2 ML SINGLE DOSE VIAL ONE (16:20)
[2016-05-19] MEDS: SODIUM CHLORIDE 1,000 ML IV SCH (16:30)
[2016-05-19] MEDS ORDERED: PROMETHAZINE HCL 25 MG/1 ML VIAL IVPUSH PRN (16:43)
[2016-05-19] MEDS ORDERED: ONDANSETRON 4 MG/2 ML VIAL IVPUSH PRN (16:43)
--- NOTE | 2016-05-19 17:09 | PN ---
Progress Note (short form) - Note Progress Note: Patient,s o2 sat in low 90s on o2 3l NC.Patient refusing to consent for general anesthesia if required by his brething pattern during the surgery.So patient decided to cancel his surgery.
--- NOTE | 2016-05-19 18:10 | PN ---
Progress Note (short form) - Note Progress Note: Patient came to OR but refused to sign consent for anesthesia when told that he might need to be intubated. He had been told several times before that anesthesia might need to be changed from sedation to general. I explained that if his circulation cannot be improved he may develop gangrene.
[2016-05-19] MEDS: ATORVASTATIN CA 10 MG TABLET (FP) PO SCH (21:44)
--- NOTE | 2016-05-19 23:30 | PN ---
Progress Note, Physician History of Present Illness: No new complaints - Current Medication List Current Medications: Active Medications Atorvastatin Calcium (Lipitor -) 10 mg PO HS [facility] Last Admin: 05/19/16 21:44 Dose: 10 mg Cholecalciferol (Vitamin D3 -) 1,000 unit PO DAILY [facility] Last Admin: 05/19/16 09:17 Dose: 1,000 unit Fenofibric Acid (Trilipix -) 45 mg PO DAILY [facility] Last Admin: 05/19/16 09:19 Dose: 45 mg Fentanyl (Sublimaze Injection -) 50 mcg IVPUSH [id number] PRN PRN Reason: PAIN Stop: 05/22/16 16:44 Furosemide (Lasix -) 80 mg PO BIDLASIX [facility] Last Admin: 05/19/16 16:33 Dose: Not Given Ceftriaxone Sodium (Rocephin 1gm Ivpb (Pre-Docked)) 50 mls @ 100 mls/hr IVPB DAILY [facility] Last Admin: 05/19/16 09:18 Dose: 100 mls/hr Sodium Chloride (Normal Saline -) 1,000 mls @ 42 mls/hr IV ASDIR [facility] Metoprolol Succinate (Toprol Xl -) 150 mg PO BID [facility] Last Admin: 05/19/16 21:44 Dose: 150 mg Morphine Sulfate (Morphine Injection -) 4 mg IVPUSH Q6H PRN PRN Reason: PAIN Last Admin: 05/19/16 20:01 Dose: 4 mg Sertraline HCl (Zoloft -) 50 mg PO DAILY [facility] Last Admin: 05/19/16 09:17 Dose: 50 mg Sevelamer Carbonate (Renvela Powder Packet -) 1.6 gm PO TIDCM [facility] Last Admin: 05/19/16 16:34 Dose: Not Given Sitagliptin Phosphate (Januvia -) 25 mg PO ACBK [facility] Last Admin: 05/19/16 06:20 Dose: Not Given Sodium Thiosulfate (Sodium Thiosulfate) 25 gm IV MoWeFr@1300 [facility] Last Admin: 05/19/16 14:05 Dose: 25 gm - Objective Vital Signs: Vital Signs Temperature 98 F 05/19/16 21:00 Pulse Rate 87 05/19/16 21:00 Respiratory Rate 18 05/19/16 21:00 Blood Pressure 119/52 05/19/16 21:00 O2 Sat by Pulse Oximetry (%) 97 05/19/16 21:00 Constitutional: Yes: Well Nourished Neck: Yes: Supple Cardiovascular: Yes: WNL, Regular Rate and Rhythm Respiratory: Yes: WNL, Regular, CTA Bilaterally Gastrointestinal: Yes: WNL, Normal Bowel Sounds, Soft Labs: CBC, BMP 05/19/16 12:30 05/19/16 12:30 INR, PTT INR 1.59 (0.82-1.09) H 05/11/16 13:20 Problem List - Problems (1) Afib Code(s): I48.91 - UNSPECIFIED ATRIAL FIBRILLATION (3) Cellulitis of foot Code(s): L03.119 - CELLULITIS OF UNSPECIFIED PART OF LIMB (4) HTN (hypertension) Code(s): I10 - ESSENTIAL (PRIMARY) HYPERTENSION (5) Congestive heart failure Code(s): I50.9 - HEART FAILURE, UNSPECIFIED Qualifiers: Congestive heart failure type: systolic Congestive heart failure chronicity: acute on chronic Qualified Code(s): I50.23 - Acute on chronic systolic (congestive) heart failure (6) Diabetes Code(s): E11.9 - TYPE 2 DIABETES MELLITUS WITHOUT COMPLICATIONS (7) End stage renal disease Code(s): N18.6 - END STAGE RENAL DISEASE
[2016-05-20] MEDS: morphine CARPU-JECT 2 MG/1 ML DISP.SYRIN IVPUSH PRN ×3 (01:57→17:27)
[2016-05-20] MEDS: FUROSEMIDE 40 MG TABLET (FP) PO SCH ×2 (06:06→13:01)
[2016-05-20] MEDS: sitaGLIPtin PHOSPHATE 25 MG TABLET (FP) PO SCH (06:06)
[2016-05-20 08:28] LABS: MCH 28.5 pg (25.7-33.7); MCHC 31.9 g/dl (32.0-35.9); MEAN CELL VOLUME 89.4 fl (80-96); PLATELET COUNT 367 K/MM3 (134-434); RDW 15.5 % (11.9-15.9); WHITE BLOOD COUNT 17.1 K/mm3 (4.0-10.0)
[2016-05-20 08:32] LABS: CALCIUM 8.9 mg/dL (8.5-10.1); TOT PROT 7.4 g/dl (6.4-8.2)
[2016-05-20 08:36] LABS: BILIRUBIN,TOTAL 0.4 mg/dL (0.2-1.0); CREATININE 5.1 mg/dL (0.7-1.3)
--- NOTE | 2016-05-20 09:11 | PN ---
Progress Note, Physician Chief Complaint: sob History of Present Illness: very sob if lays flat still; also with walking halls; no better since admission; no cp, palpit, syncope ex cigs (remote) - Current Medication List Current Medications: Active Medications Atorvastatin Calcium (Lipitor -) 10 mg PO HS [facility] Last Admin: 05/19/16 21:44 Dose: 10 mg Cholecalciferol (Vitamin D3 -) 1,000 unit PO DAILY [facility] Last Admin: 05/19/16 09:17 Dose: 1,000 unit Fenofibric Acid (Trilipix -) 45 mg PO DAILY [facility] Last Admin: 05/19/16 09:19 Dose: 45 mg Fentanyl (Sublimaze Injection -) 50 mcg IVPUSH [id number] PRN PRN Reason: PAIN Stop: 05/22/16 16:44 Furosemide (Lasix -) 80 mg PO BIDLASIX [facility] Last Admin: 05/20/16 06:06 Dose: 80 mg Ceftriaxone Sodium (Rocephin 1gm Ivpb (Pre-Docked)) 50 mls @ 100 mls/hr IVPB DAILY [facility] Last Admin: 05/19/16 09:18 Dose: 100 mls/hr Sodium Chloride (Normal Saline -) 1,000 mls @ 42 mls/hr IV ASDIR [facility] Metoprolol Succinate (Toprol Xl -) 150 mg PO BID [facility] Last Admin: 05/19/16 21:44 Dose: 150 mg Morphine Sulfate (Morphine Injection -) 4 mg IVPUSH Q6H PRN PRN Reason: PAIN Last Admin: 05/20/16 01:57 Dose: 4 mg Sertraline HCl (Zoloft -) 50 mg PO DAILY [facility] Last Admin: 05/19/16 09:17 Dose: 50 mg Sevelamer Carbonate (Renvela Powder Packet -) 1.6 gm PO TIDCM [facility] Last Admin: 05/19/16 16:34 Dose: Not Given Sitagliptin Phosphate (Januvia -) 25 mg PO ACBK [facility] Last Admin: 05/20/16 06:06 Dose: 25 mg Sodium Thiosulfate (Sodium Thiosulfate) 25 gm IV MoWeFr@1300 [facility] Last Admin: 05/19/16 14:05 Dose: 25 gm - Objective Vital Signs: Vital Signs Temperature 97.8 F 05/20/16 06:55 Pulse Rate 94 H 05/20/16 09:00 Respiratory Rate 18 03/25/17 09:00 Blood Pressure 140/82 05/20/16 09:00 O2 Sat by Pulse Oximetry (%) 97 05/19/16 21:00 Labs: CBC, BMP 05/20/16 06:35 05/20/16 06:00 INR, PTT INR 1.59 (0.82-1.09) H 05/11/16 13:20 Assessment/Plan echo 09/2015: mod lve, mild-mod dec lvef, global HK, nl rv, mod-sev mr, sev tr, marixa, nl rvsp echo 03/2016: mild lve, mod dec lvef, ant HK, nl rv size, marixa, mild mr, mod tr, rvsp 40-50 a/p: 60 m hx htn, hld, dm, cabg (04/2006), ESRD, afib/flutter, syst chf, esrd on HD, here with infected foot wound chronic syst chf: -significant sob with little activity and orthopnea earlier this admit -attempting incr frequency of HD/UF here, per d/w dr mcghee -cont po lasix 80 bid and HD for vol management (started 05/12) -recent echo 03/2016 here similar to 09/2015, shows mod reduced lvef--? etiology ( ? if EF already down at time of dx of CAD and CABG) -need accurate assessment of AF rate control (r/o tachy-CMP) and burden ( paroxysmal) as outpt -has been getting near-daily HD/UF -05/20: overall wt trend here 213-->202 -however remains with severe orthopnea -doubt copd sx (pt given trial of nebs and says was no better) -rec continuing frequent UF until wt no longer trending down, or marked hypotension/leg cramps during HD indicating no more fluid to remove -con't bb -holding diovan 80 qd, hydralazine 25 bid, and isordil 10 qd given low bp possibly from sepsis, and low bp's at HD at home which may limit attempts at aggressive fluid removal here -reassess later once volume status better, if bp stable afib/flutter: -initially not well controlled--HRs to 140s at times. (cannot use dilt with chronic syst chf, low dose digoxin (HD pt) hi risk toxicity. 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 if tachy contributing to LV dysfunction and/or hi intracardiac filling pressures -incr toprol 200 bid (prefer not to hold it on HD days, if bp can tolerate) -if remains with frequent tachy, will try change metoprolol to propranolol -avoiding dig given HD pt with risks of fluctuating levels -cont eliquis 2.5 bid (presyncopal consistently following eliquis 5mg doses at home--???)--hope to incr later once chf status and bp drops from HD are stabilized ESRD -cont hd per renal -fluid removal as disc'd above htn: -bp's on low side here, possibly due to infection/cellulitis so holding diovan, nitrate, hydralazine for now, resume when bp stable -related to body equilibrating to recent start of HD -LH/presyncope episodes at home, ? (highly unusual) med effect (eliquis 5mg)-- suspect more likely related to hi chf med burden with intravasc fluid shifts from HD hld: -cont home statin cad s/p cabg: -ce's neg x2, EKG without ischemic changes here, no suspected angina sx's -recent echo w/o sig change from prior -cont statin, bb, ac le cellulitis, possible gangrene, PAD: -plans per vascular surgery, ID -ok to hold eliquis if needed for debridement, angio
[2016-05-20] MEDS: METOPROLOL SUCCINATE 50 MG TAB.SR.24H (FP) PO SCH (09:59)
[2016-05-20] MEDS: FENOFIBRIC ACID 45 MG CAP PO SCH (09:59)
[2016-05-20] MEDS: CHOLECALCIFEROL (VITAMIN D3) 1,000 UNIT TABLET (FP) PO SCH (09:59)
[2016-05-20] MEDS: SEVELAMER CARBONATE 0.8 GM POWDER PACKET PO SCH ×3 (09:59→17:19)
[2016-05-20] MEDS: CEFTRIAXONE 50 ML IVPB SCH (09:59)
[2016-05-20] MEDS: SERTRALINE HCL 50 MG TABLET (FP) PO SCH (09:59)
--- NOTE | 2016-05-20 11:24 | PN ---
Progress Note, Physician History of Present Illness: pulmonary alert,pt refused procedure secondary risk of post op respiratory failure. pt currently alert,nad,O2 sat 97% on ra - Current Medication List Current Medications: Active Medications Atorvastatin Calcium (Lipitor -) 10 mg PO HS [facility] Last Admin: 05/19/16 21:44 Dose: 10 mg Cholecalciferol (Vitamin D3 -) 1,000 unit PO DAILY [facility] Last Admin: 05/20/16 09:59 Dose: 1,000 unit Fenofibric Acid (Trilipix -) 45 mg PO DAILY [facility] Last Admin: 05/20/16 09:59 Dose: 45 mg Fentanyl (Sublimaze Injection -) 50 mcg IVPUSH [id number] PRN PRN Reason: PAIN Stop: 05/22/16 16:44 Furosemide (Lasix -) 80 mg PO BIDLASIX [facility] Last Admin: 05/20/16 06:06 Dose: 80 mg Ceftriaxone Sodium (Rocephin 1gm Ivpb (Pre-Docked)) 50 mls @ 100 mls/hr IVPB DAILY [facility] Last Admin: 05/20/16 09:59 Dose: 100 mls/hr Sodium Chloride (Normal Saline -) 1,000 mls @ 42 mls/hr IV ASDIR [facility] Last Admin: 05/19/16 16:30 Dose: Not Given Metoprolol Succinate (Toprol Xl -) 150 mg PO BID [facility] Last Admin: 05/20/16 09:59 Dose: 150 mg Morphine Sulfate (Morphine Injection -) 4 mg IVPUSH Q6H PRN PRN Reason: PAIN Last Admin: 05/20/16 09:59 Dose: 4 mg Sertraline HCl (Zoloft -) 50 mg PO DAILY [facility] Last Admin: 05/20/16 09:59 Dose: 50 mg Sevelamer Carbonate (Renvela Powder Packet -) 1.6 gm PO TIDCM [facility] Last Admin: 05/20/16 09:59 Dose: Not Given Sitagliptin Phosphate (Januvia -) 25 mg PO ACBK [facility] Last Admin: 05/20/16 06:06 Dose: 25 mg Sodium Thiosulfate (Sodium Thiosulfate) 25 gm IV MoWeFr@1300 [facility] Last Admin: 05/19/16 14:05 Dose: 25 gm - Objective Vital Signs: Vital Signs Temperature 97.8 F 05/20/16 06:55 Pulse Rate 92 H 05/20/16 09:35 Respiratory Rate 18 05/20/16 09:35 Blood Pressure 133/70 05/20/16 09:35 O2 Sat by Pulse Oximetry (%) 98 05/20/16 08:00 Constitutional: Yes: Well Nourished, Calm, Pallor HENT: Yes: WNL Neck: Yes: WNL Cardiovascular: Yes: Pulse Irregular, S1, S2 Respiratory: Yes: Rales (bilateral rales 1/2up) Gastrointestinal: Yes: Normal Bowel Sounds, Soft Extremities: Yes: WNL Edema: Yes Labs: CBC, BMP 05/20/16 06:35 05/20/16 06:00 INR, PTT INR 1.59 (0.82-1.09) H 05/11/16 13:20 Problem List - Problems (1) Afib Code(s): I48.91 - UNSPECIFIED ATRIAL FIBRILLATION (3) CHF exacerbation Code(s): I50.9 - HEART FAILURE, UNSPECIFIED Qualifiers: Congestive heart failure type: unspecified congestive heart failure type Qualified Code(s): I50.9 - Heart failure, unspecified (4) Cellulitis and abscess of foot Code(s): L03.119 - CELLULITIS OF UNSPECIFIED PART OF LIMB L02.619 - CUTANEOUS ABSCESS OF UNSPECIFIED FOOT (5) Microangiopathy, 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 (6) Anemia Code(s): D64.9 - ANEMIA, UNSPECIFIED Qualifiers: Anemia type: unspecified type Qualified Code(s): D64.9 - Anemia, unspecified (7) Atrial fibrillation with RVR Code(s): I48.91 - UNSPECIFIED ATRIAL FIBRILLATION (8) Bilateral shoulder pain Code(s): M25.511 - PAIN IN RIGHT SHOULDER M25.512 - PAIN IN LEFT SHOULDER (9) Cellulitis of foot Code(s): L03.119 - CELLULITIS OF UNSPECIFIED PART OF LIMB (10) Dyspnea on exertion Code(s): R06.09 - OTHER FORMS OF DYSPNEA (11) HTN (hypertension) Code(s): I10 - ESSENTIAL (PRIMARY) HYPERTENSION (12) Atrial flutter Code(s): I48.92 - UNSPECIFIED ATRIAL FLUTTER (13) CAD, multiple vessel Code(s): I25.10 - ATHSCL HEART DISEASE OF [place] CORONARY ARTERY W/O ANG PCTRS (14) Congestive heart failure Code(s): I50.9 - HEART FAILURE, UNSPECIFIED Qualifiers: Congestive heart failure type: systolic Congestive heart failure chronicity: acute on chronic Qualified Code(s): I50.23 - Acute on chronic systolic (congestive) heart failure (15) Diabetes Code(s): E11.9 - TYPE 2 DIABETES MELLITUS WITHOUT COMPLICATIONS (16) End stage renal disease Code(s): N18.6 - END STAGE RENAL DISEASE Assessment/Plan IMP DYSPNEA MULTIPLE FACTORS,CHF,COPD PULMONARY HTN ASHD S/P CABG ESRD ON HD AFIB HTN DM PVD CELLULITIS LIKELY OSAS PLAN HD PER RENAL CONTINUE ANTIBIOTICS PER ID INHALED BRONCHODILATORS SUPPLEMENTAL O2 CHECK O2 SAT AT REST AND POST EXERCISE ON RA PFTS OUTPATIENT SLEEP STUDIES OUTPATIENT abg today CHEST X-RAY PA +LATERAL DR LUNA
[2016-05-20] MEDS ORDERED: METOPROLOL SUCCINATE 50 MG TAB.SR.24H (FP) PO ONE (11:45)
--- NOTE | 2016-05-20 12:33 | PN ---
Progress Note (short form) - Note Progress Note: Patient now agrees to have angiogram with anesthesia as needed. I will reschedule for next week.
--- NOTE | 2016-05-20 12:47 | PN ---
Progress Note (short form) - Note Progress Note: Renal Follow up for ESRD Pt seen and examined with dialysis today tolerated Hd with 2kg UF BP stable catheter with good function Vital Signs Temperature 97.8 F 05/20/16 06:55 Pulse Rate 92 H 05/20/16 09:35 Respiratory Rate 18 05/20/16 09:35 Blood Pressure 133/70 05/20/16 09:35 O2 Sat by Pulse Oximetry (%) 98 05/20/16 08:00 Intake & Output 05/17/16 05/18/16 05/19/16 05/20/16 23:59 23:59 23:59 23:59 Intake Total 730 610 380 15 Output Total 150 Balance 580 610 380 15 Weight 206 lb 12.8 oz 204 lb 12.8 oz 205 lb 3.2 oz 202 lb 9.677 oz Gen: awake and alert CVS: RRR, No M/R Lungs: CTA, no rales or wheeze Abd: soft NT/ND Ext: Trace edema in LE. Heels and foot in dressing CBC, BMP 05/20/16 06:35 05/20/16 06:00 Laboratory Tests 05/20/16 06:00 Calcium 8.9 Phosphorus 4.0 Albumin 3.0 L Current Medications Atorvastatin Calcium (Lipitor -) 10 mg PO HS [facility] Last Admin: 05/19/16 21:44 Dose: 10 mg Cholecalciferol (Vitamin D3 -) 1,000 unit PO DAILY [facility] Last Admin: 05/20/16 09:59 Dose: 1,000 unit Fenofibric Acid (Trilipix -) 45 mg PO DAILY [facility] Last Admin: 05/20/16 09:59 Dose: 45 mg Fentanyl (Sublimaze Injection -) 50 mcg IVPUSH [id number] PRN PRN Reason: PAIN Stop: 05/22/16 16:44 Furosemide (Lasix -) 80 mg PO BIDLASIX [facility] Last Admin: 05/20/16 06:06 Dose: 80 mg Ceftriaxone Sodium (Rocephin 1gm Ivpb (Pre-Docked)) 50 mls @ 100 mls/hr IVPB DAILY [facility] Last Admin: 05/20/16 09:59 Dose: 100 mls/hr Sodium Chloride (Normal Saline -) 1,000 mls @ 42 mls/hr IV ASDIR [facility] Last Admin: 05/19/16 16:30 Dose: Not Given Metoprolol Succinate (Toprol Xl -) 200 mg PO BID [facility] Morphine Sulfate (Morphine Injection -) 4 mg IVPUSH Q6H PRN PRN Reason: PAIN Last Admin: 05/20/16 09:59 Dose: 4 mg Sertraline HCl (Zoloft -) 50 mg PO DAILY [facility] Last Admin: 05/20/16 09:59 Dose: 50 mg Sevelamer Carbonate (Renvela Powder Packet -) 1.6 gm PO TIDCM [facility] Last Admin: 05/20/16 09:59 Dose: Not Given Sitagliptin Phosphate (Januvia -) 25 mg PO ACBK [facility] Last Admin: 05/20/16 06:06 Dose: 25 mg Sodium Thiosulfate (Sodium Thiosulfate) 25 gm IV MoWeFr@1300 [facility] Last Admin: 05/19/16 14:05 Dose: 25 gm A/P 60 year old gentleman with PMhx of ESRD (recently started on dialysis), CAD s/p CABG, DM Type 2, Depression, CHF who with LE weakness s/p recent fall and wound on right foot. #ESRD on HD with fluid overload HD today with 2kg UF Additional treatment with UF planned for Sunday. 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
[2016-05-20] MEDS: SODIUM CHLORIDE 1,000 ML IV SCH (17:19)
[2016-05-20] MEDS: METOPROLOL SUCCINATE 100 MG TAB.SR.24H (FP) PO SCH (21:15)
[2016-05-20] MEDS: ATORVASTATIN CA 10 MG TABLET (FP) PO SCH (21:15)
--- NOTE | 2016-05-20 23:21 | PN ---
Progress Note, Physician History of Present Illness: No new complaints - Current Medication List Current Medications: Active Medications Atorvastatin Calcium (Lipitor -) 10 mg PO HS [facility] Last Admin: 05/20/16 21:15 Dose: 10 mg Cholecalciferol (Vitamin D3 -) 1,000 unit PO DAILY [facility] Last Admin: 05/20/16 09:59 Dose: 1,000 unit Fenofibric Acid (Trilipix -) 45 mg PO DAILY [facility] Last Admin: 05/20/16 09:59 Dose: 45 mg Fentanyl (Sublimaze Injection -) 50 mcg IVPUSH [id number] PRN PRN Reason: PAIN Stop: 05/22/16 16:44 Furosemide (Lasix -) 80 mg PO BIDLASIX [facility] Last Admin: 05/20/16 13:01 Dose: 80 mg Ceftriaxone Sodium (Rocephin 1gm Ivpb (Pre-Docked)) 50 mls @ 100 mls/hr IVPB DAILY [facility] Last Admin: 05/20/16 09:59 Dose: 100 mls/hr Sodium Chloride (Normal Saline -) 1,000 mls @ 42 mls/hr IV ASDIR [facility] Last Admin: 05/20/16 17:19 Dose: Not Given Metoprolol Succinate (Toprol Xl -) 200 mg PO BID [facility] Last Admin: 05/20/16 21:15 Dose: 200 mg Morphine Sulfate (Morphine Injection -) 4 mg IVPUSH Q6H PRN PRN Reason: PAIN Last Admin: 05/20/16 17:27 Dose: 4 mg Sertraline HCl (Zoloft -) 50 mg PO DAILY [facility] Last Admin: 05/20/16 09:59 Dose: 50 mg Sevelamer Carbonate (Renvela Powder Packet -) 1.6 gm PO TIDCM [facility] Last Admin: 05/20/16 17:19 Dose: Not Given Sitagliptin Phosphate (Januvia -) 25 mg PO ACBK [facility] Last Admin: 05/20/16 06:06 Dose: 25 mg Sodium Thiosulfate (Sodium Thiosulfate) 25 gm IV MoWeFr@1300 [facility] Last Admin: 05/19/16 14:05 Dose: 25 gm - Objective Vital Signs: Vital Signs Temperature 97.5 F L 05/20/16 21:13 Pulse Rate 100 H 05/20/16 21:13 Respiratory Rate 20 05/20/16 21:13 Blood Pressure 125/78 05/20/16 21:13 O2 Sat by Pulse Oximetry (%) 98 05/20/16 08:00 Constitutional: Yes: Well Nourished Neck: Yes: Supple Cardiovascular: Yes: WNL, Regular Rate and Rhythm Respiratory: Yes: WNL, Regular, CTA Bilaterally Gastrointestinal: Yes: WNL, Normal Bowel Sounds, Soft Labs: CBC, BMP 05/20/16 06:35 05/20/16 06:00 INR, PTT INR 1.59 (0.82-1.09) H 05/11/16 13:20 Problem List - Problems (1) Afib Assessment/Plan: Heart rate controlled Eliquis on hold for angioplasty of lower extremities Code(s): I48.91 - UNSPECIFIED ATRIAL FIBRILLATION (2) Arteriosclerosis of arteries of extremities Assessment/Plan: Pt was unable to tolerte angioplasty bc he was not able to lie flat due to dyspnea (3) Cellulitis of foot Assessment/Plan: Sepsis Cont IV ceftriaxone/vanco Cont wound care Code(s): L03.119 - CELLULITIS OF UNSPECIFIED PART OF LIMB (4) HTN (hypertension) Code(s): I10 - ESSENTIAL (PRIMARY) HYPERTENSION (5) Congestive heart failure Code(s): I50.9 - HEART FAILURE, UNSPECIFIED Qualifiers: Congestive heart failure type: systolic Congestive heart failure chronicity: acute on chronic Qualified Code(s): I50.23 - Acute on chronic systolic (congestive) heart failure (6) Diabetes Code(s): E11.9 - TYPE 2 DIABETES MELLITUS WITHOUT COMPLICATIONS (7) End stage renal disease Code(s): N18.6 - END STAGE RENAL DISEASE
[2016-05-21] MEDS: morphine CARPU-JECT 2 MG/1 ML DISP.SYRIN IVPUSH PRN ×3 (02:36→23:52)
[2016-05-21] MEDS: sitaGLIPtin PHOSPHATE 25 MG TABLET (FP) PO SCH (06:05)
[2016-05-21] MEDS: FUROSEMIDE 40 MG TABLET (FP) PO SCH ×2 (06:05→14:00)
[2016-05-21 07:31] LABS: MCH 28.6 pg (25.7-33.7); MEAN CELL VOLUME 89.4 fl (80-96); MEAN PLT VOLUME 8.3 fl (7.5-11.1); PLATELET COUNT 357 K/MM3 (134-434); RDW 15.7 % (11.9-15.9); WHITE BLOOD COUNT 14.8 K/mm3 (4.0-10.0)
[2016-05-21] MEDS ORDERED: PT OWN MED DRAWER 7, Y5N ONE (07:56)
[2016-05-21 08:01] LABS: CALCIUM 9.3 mg/dL (8.5-10.1)
[2016-05-21 08:03] LABS: CREATININE 4.9 mg/dL (0.7-1.3); PHOSPHOROUS 4.5 mg/dL (2.5-4.9)
[2016-05-21] MEDS: SEVELAMER CARBONATE 0.8 GM POWDER PACKET PO SCH ×3 (08:14→17:07)
--- NOTE | 2016-05-21 08:38 | PN ---
Progress Note, Physician Chief Complaint: chf History of Present Illness: less sob laying flat today, but thinks it will start up after a while; no cp, palpit, presyncope ex cigs (remote) - Current Medication List Current Medications: Active Medications Atorvastatin Calcium (Lipitor -) 10 mg PO HS [facility] Last Admin: 05/20/16 21:15 Dose: 10 mg Cholecalciferol (Vitamin D3 -) 1,000 unit PO DAILY [facility] Last Admin: 05/20/16 09:59 Dose: 1,000 unit Fenofibric Acid (Trilipix -) 45 mg PO DAILY [facility] Last Admin: 05/20/16 09:59 Dose: 45 mg Fentanyl (Sublimaze Injection -) 50 mcg IVPUSH [id number] PRN PRN Reason: PAIN Stop: 05/22/16 16:44 Furosemide (Lasix -) 80 mg PO BIDLASIX [facility] Last Admin: 05/21/16 06:05 Dose: 80 mg Ceftriaxone Sodium (Rocephin 1gm Ivpb (Pre-Docked)) 50 mls @ 100 mls/hr IVPB DAILY [facility] Last Admin: 05/20/16 09:59 Dose: 100 mls/hr Sodium Chloride (Normal Saline -) 1,000 mls @ 42 mls/hr IV ASDIR [facility] Last Admin: 05/20/16 17:19 Dose: Not Given Metoprolol Succinate (Toprol Xl -) 200 mg PO BID [facility] Last Admin: 05/20/16 21:15 Dose: 200 mg Morphine Sulfate (Morphine Injection -) 4 mg IVPUSH Q6H PRN PRN Reason: PAIN Last Admin: 05/21/16 02:36 Dose: 4 mg Sertraline HCl (Zoloft -) 50 mg PO DAILY [facility] Last Admin: 05/20/16 09:59 Dose: 50 mg Sevelamer Carbonate (Renvela Powder Packet -) 1.6 gm PO TIDCM [facility] Last Admin: 05/21/16 08:14 Dose: 1.6 gm Sitagliptin Phosphate (Januvia -) 25 mg PO ACBK [facility] Last Admin: 05/21/16 06:05 Dose: 25 mg Sodium Thiosulfate (Sodium Thiosulfate) 25 gm IV MoWeFr@1300 [facility] Last Admin: 05/19/16 14:05 Dose: 25 gm - Objective Vital Signs: Vital Signs Temperature 98.0 F 05/21/16 07:26 Pulse Rate 95 H 05/21/16 07:26 Respiratory Rate 20 05/21/16 07:31 Blood Pressure 145/70 05/21/16 07:26 O2 Sat by Pulse Oximetry (%) 95 05/21/16 07:31 Constitutional: Yes: No Distress, Calm Eyes: No: Sclera Icterus HENT: No: Nasal Congestion Cardiovascular: Yes: Regular Rate and Rhythm, S1, S2, Other (PMI non diplaced). No: Gallop, Murmur Respiratory: Yes: CTA Bilaterally, Rhonchi. No: Accessory Muscle Use, Rales, Wheezes Gastrointestinal: Yes: Normal Bowel Sounds, Soft. No: Tenderness Musculoskeletal: Yes: Other (No kyphosis) Extremities: No: Cold Edema: No Integumentary: No: Jaundice Neurological: Yes: Alert, Oriented (x3) Psychiatric: No: Agitated Labs: CBC, BMP 05/21/16 05:35 05/21/16 05:35 INR, PTT INR 1.59 (0.82-1.09) H 05/11/16 13:20 - ....Imaging EKG: Other (tele off) Assessment/Plan echo 09/2015: mod lve, mild-mod dec lvef, global HK, nl rv, mod-sev mr, sev tr, marixa, nl rvsp echo 03/2016: mild lve, mod dec lvef, ant HK, nl rv size, marixa, mild mr, mod tr, rvsp 40-50 a/p: 60 m hx htn, hld, dm, cabg (04/2006), ESRD, afib/flutter, syst chf, esrd on HD, here with infected foot wound chronic syst chf: -significant sob with little activity and orthopnea earlier this admit -attempting incr frequency of HD/UF here, per d/w dr mcghee -cont po lasix 80 bid and HD for vol management (started 05/12) -recent echo 03/2016 here similar to 09/2015, shows mod reduced lvef--? etiology ( ? if EF already down at time of dx of CAD and CABG) -need accurate assessment of AF rate control (r/o tachy-CMP) and burden ( paroxysmal) as outpt -has been getting near-daily HD/UF -05/20: overall wt trend here 213-->202 -however remains with severe orthopnea -doubt copd sx (pt given trial of nebs and says was no better) -CXR without evidence of pulm congestion, however suspect he is still hiding volume and filling pressures are up -d/w'd renal: plan to continue frequent UF until objective evidence of vol depletion -05/21: s/p UF yesterday; wt down 202 to 201; -con't bb -holding diovan 80 qd, hydralazine 25 bid, and isordil 10 qd given low bp possibly from sepsis, and low bp's at HD at home which may limit attempts at aggressive fluid removal here -reassess later once volume status better, if bp stable afib/flutter: -initially not well controlled--HRs to 140s at times. (cannot use dilt with chronic syst chf, low dose digoxin (HD pt) hi risk toxicity. Amio or consider AVN ablation/PPM if cannot adequately control HRs) -frequent self-d/c of delivery rn limits assessment -current tele shows at times HR 130s -? if tachy contributing to LV dysfunction and/or hi intracardiac filling pressures -05/20 incr'd toprol 200 bid (prefer not to hold it on HD days, if bp can tolerate) -pt agreeable to leave tele leads on -if remains with frequent tachy, will try change metoprolol to propranolol -avoiding dig given HD pt with risks of fluctuating levels -cont eliquis 2.5 bid (presyncopal consistently following eliquis 5mg doses at home--???)--hope to incr later once chf status and bp drops from HD are stabilized ESRD -cont hd per renal -fluid removal as disc'd above htn: -bp's on low side here, possibly due to infection/cellulitis so holding diovan, nitrate, hydralazine for now, resume when bp stable -related to body equilibrating to recent start of HD -LH/presyncope episodes at home, ? (highly unusual) med effect (eliquis 5mg)-- suspect more likely related to hi chf med burden with intravasc fluid shifts from HD hld: -cont home statin cad s/p cabg: -ce's neg x2, EKG without ischemic changes here, no suspected angina sx's -recent echo w/o sig change from prior -cont statin, bb, ac le cellulitis, possible gangrene, PAD: -plans per vascular surgery, ID -ok to hold eliquis if needed for debridement, angio
[2016-05-21] MEDS: CEFTRIAXONE 50 ML IVPB SCH (09:00)
[2016-05-21] MEDS: CHOLECALCIFEROL (VITAMIN D3) 1,000 UNIT TABLET (FP) PO SCH (09:01)
[2016-05-21] MEDS: METOPROLOL SUCCINATE 100 MG TAB.SR.24H (FP) PO SCH ×2 (09:01→21:10)
[2016-05-21] MEDS: SERTRALINE HCL 50 MG TABLET (FP) PO SCH (09:01)
[2016-05-21] MEDS: FENOFIBRIC ACID 45 MG CAP PO SCH (09:01)
[2016-05-21 09:33] LABS: METAMYELOCYTE 1 % (0-2); PLATELET COMMENT2 FEW GIANT PLTS; PLATELET COMMENT3 NO CLOTTING DETECTED; PLATELET ESTIMATE ADEQUATE (NORMAL); SMUDGE CELLS FEW
[2016-05-21 09:34] LABS: HYPOCHROMIA 1+; POIKILOCYTOSIS 1+; POLYCHROMASIA 1+
--- NOTE | 2016-05-21 10:56 | PN ---
Progress Note, Physician History of Present Illness: PULMONARY FEELING BETTER,LAYING FLAT IN BED ,-RESP DISTRESS - Current Medication List Current Medications: Active Medications Atorvastatin Calcium (Lipitor -) 10 mg PO HS [facility] Last Admin: 05/20/16 21:15 Dose: 10 mg Cholecalciferol (Vitamin D3 -) 1,000 unit PO DAILY [facility] Last Admin: 05/21/16 09:01 Dose: 1,000 unit Fenofibric Acid (Trilipix -) 45 mg PO DAILY [facility] Last Admin: 05/21/16 09:01 Dose: 45 mg Fentanyl (Sublimaze Injection -) 50 mcg IVPUSH [id number] PRN PRN Reason: PAIN Stop: 05/22/16 16:44 Furosemide (Lasix -) 80 mg PO BIDLASIX [facility] Last Admin: 05/21/16 06:05 Dose: 80 mg Ceftriaxone Sodium (Rocephin 1gm Ivpb (Pre-Docked)) 50 mls @ 100 mls/hr IVPB DAILY [facility] Last Admin: 05/21/16 09:00 Dose: 100 mls/hr Sodium Chloride (Normal Saline -) 1,000 mls @ 42 mls/hr IV ASDIR [facility] Last Admin: 05/20/16 17:19 Dose: Not Given Metoprolol Succinate (Toprol Xl -) 200 mg PO BID [facility] Last Admin: 05/21/16 09:01 Dose: 200 mg Morphine Sulfate (Morphine Injection -) 4 mg IVPUSH Q6H PRN PRN Reason: PAIN Last Admin: 05/21/16 02:36 Dose: 4 mg Sertraline HCl (Zoloft -) 50 mg PO DAILY [facility] Last Admin: 05/21/16 09:01 Dose: 50 mg Sevelamer Carbonate (Renvela Powder Packet -) 1.6 gm PO TIDCM [facility] Last Admin: 05/21/16 08:14 Dose: 1.6 gm Sitagliptin Phosphate (Januvia -) 25 mg PO ACBK [facility] Last Admin: 05/21/16 06:05 Dose: 25 mg Sodium Thiosulfate (Sodium Thiosulfate) 25 gm IV MoWeFr@1300 [facility] Last Admin: 05/19/16 14:05 Dose: 25 gm - Objective Vital Signs: Vital Signs Temperature 98.0 F 05/21/16 07:26 Pulse Rate 95 H 05/21/16 07:26 Respiratory Rate 20 05/21/16 07:31 Blood Pressure 145/70 05/21/16 07:26 O2 Sat by Pulse Oximetry (%) 95 05/21/16 07:31 Constitutional: Yes: Well Nourished, Calm Eyes: Yes: WNL HENT: Yes: WNL Neck: Yes: WNL Cardiovascular: Yes: Pulse Irregular, S1, S2 Respiratory: Yes: Rales (FEW BIBASILAR CRACKLES) Gastrointestinal: Yes: Normal Bowel Sounds, Soft Extremities: Yes: WNL Edema: Yes Labs: CBC, BMP 05/21/16 05:35 05/21/16 05:35 INR, PTT INR 1.59 (0.82-1.09) H 05/11/16 13:20 - ....Imaging Chest X-ray: Report Reviewed, Image Reviewed Problem List - Problems (1) Afib Code(s): I48.91 - UNSPECIFIED ATRIAL FIBRILLATION (3) CHF exacerbation Code(s): I50.9 - HEART FAILURE, UNSPECIFIED Qualifiers: Congestive heart failure type: unspecified congestive heart failure type Qualified Code(s): I50.9 - Heart failure, unspecified (4) Cellulitis and abscess of foot Code(s): L03.119 - CELLULITIS OF UNSPECIFIED PART OF LIMB L02.619 - CUTANEOUS ABSCESS OF UNSPECIFIED FOOT (5) Microangiopathy, 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 (6) Anemia Code(s): D64.9 - ANEMIA, UNSPECIFIED Qualifiers: Anemia type: unspecified type Qualified Code(s): D64.9 - Anemia, unspecified (7) Atrial fibrillation with RVR Code(s): I48.91 - UNSPECIFIED ATRIAL FIBRILLATION (8) Bilateral shoulder pain Code(s): M25.511 - PAIN IN RIGHT SHOULDER M25.512 - PAIN IN LEFT SHOULDER (9) Cellulitis of foot Code(s): L03.119 - CELLULITIS OF UNSPECIFIED PART OF LIMB (10) Dyspnea on exertion Code(s): R06.09 - OTHER FORMS OF DYSPNEA (11) HTN (hypertension) Code(s): I10 - ESSENTIAL (PRIMARY) HYPERTENSION (12) Atrial flutter Code(s): I48.92 - UNSPECIFIED ATRIAL FLUTTER (13) CAD, multiple vessel Code(s): I25.10 - ATHSCL HEART DISEASE OF [place] CORONARY ARTERY W/O ANG PCTRS (14) Congestive heart failure Code(s): I50.9 - HEART FAILURE, UNSPECIFIED Qualifiers: Congestive heart failure type: systolic Congestive heart failure chronicity: acute on chronic Qualified Code(s): I50.23 - Acute on chronic systolic (congestive) heart failure (15) Diabetes Code(s): E11.9 - TYPE 2 DIABETES MELLITUS WITHOUT COMPLICATIONS (16) End stage renal disease Code(s): N18.6 - END STAGE RENAL DISEASE Assessment/Plan IMP DYSPNEA MULTIPLE FACTORS,CHF,COPD PULMONARY HTN ASHD S/P CABG ESRD ON HD AFIB HTN DM PVD CELLULITIS LIKELY OSAS PLAN HD PER RENAL CONTINUE ANTIBIOTICS PER ID INHALED BRONCHODILATORS SUPPLEMENTAL O2 CHECK O2 SAT AT REST AND POST EXERCISE ON RA PFTS OUTPATIENT SLEEP STUDIES OUTPATIENT DR LUNA
[2016-05-21] MEDS: SODIUM CHLORIDE 1,000 ML IV SCH (17:08)
[2016-05-21] MEDS: ATORVASTATIN CA 10 MG TABLET (FP) PO SCH (21:10)
--- NOTE | 2016-05-21 21:58 | PN ---
Progress Note, Physician - Current Medication List Current Medications: Active Medications Atorvastatin Calcium (Lipitor -) 10 mg PO HS [facility] Last Admin: 05/21/16 21:10 Dose: 10 mg Cholecalciferol (Vitamin D3 -) 1,000 unit PO DAILY [facility] Last Admin: 05/21/16 09:01 Dose: 1,000 unit Fenofibric Acid (Trilipix -) 45 mg PO DAILY [facility] Last Admin: 05/21/16 09:01 Dose: 45 mg Fentanyl (Sublimaze Injection -) 50 mcg IVPUSH [id number] PRN PRN Reason: PAIN Stop: 05/22/16 16:44 Furosemide (Lasix -) 80 mg PO BIDLASIX [facility] Last Admin: 05/21/16 14:00 Dose: 80 mg Ceftriaxone Sodium (Rocephin 1gm Ivpb (Pre-Docked)) 50 mls @ 100 mls/hr IVPB DAILY [facility] Last Admin: 05/21/16 09:00 Dose: 100 mls/hr Sodium Chloride (Normal Saline -) 1,000 mls @ 42 mls/hr IV ASDIR [facility] Last Admin: 05/21/16 17:08 Dose: Not Given Metoprolol Succinate (Toprol Xl -) 200 mg PO BID [facility] Last Admin: 05/21/16 21:10 Dose: 200 mg Morphine Sulfate (Morphine Injection -) 4 mg IVPUSH Q6H PRN PRN Reason: PAIN Last Admin: 05/21/16 18:00 Dose: 4 mg Sertraline HCl (Zoloft -) 50 mg PO DAILY [facility] Last Admin: 05/21/16 09:01 Dose: 50 mg Sevelamer Carbonate (Renvela Powder Packet -) 1.6 gm PO TIDCM [facility] Last Admin: 05/21/16 17:07 Dose: 1.6 gm Sitagliptin Phosphate (Januvia -) 25 mg PO ACBK [facility] Last Admin: 05/21/16 06:05 Dose: 25 mg Sodium Thiosulfate (Sodium Thiosulfate) 25 gm IV MoWeFr@1300 [facility] Last Admin: 05/19/16 14:05 Dose: 25 gm - Objective Vital Signs: Vital Signs Temperature 98.7 F 05/21/16 21:10 Pulse Rate 100 H 05/21/16 21:10 Respiratory Rate 20 05/21/16 21:10 Blood Pressure 133/64 05/21/16 21:10 O2 Sat by Pulse Oximetry (%) 100 05/21/16 20:46 Constitutional: Yes: Well Nourished Neck: Yes: Supple Cardiovascular: Yes: WNL, Regular Rate and Rhythm Respiratory: Yes: WNL, Regular, CTA Bilaterally Gastrointestinal: Yes: WNL, Normal Bowel Sounds, Soft Extremities: Yes: Other ((+) lt foot ulcers) Labs: CBC, BMP 05/21/16 05:35 05/21/16 05:35 INR, PTT INR 1.59 (0.82-1.09) H 05/11/16 13:20 Problem List - Problems (1) Arteriosclerosis of arteries of extremities Assessment/Plan: Pt to be rescheduled for angioplasty on 05/23/16 Cont to hold eliquis for procedure (2) Cellulitis of foot Assessment/Plan: Sepsis Cont IV ceftriaxone/vanco Cont wound care Code(s): L03.119 - CELLULITIS OF UNSPECIFIED PART OF LIMB (3) Dyspnea Assessment/Plan: Multifactorial Due to COPD vs sleep apnea Out pt PFT's/sleep study Cont inhalers Code(s): R06.00 - DYSPNEA, UNSPECIFIED (4) Afib Assessment/Plan: Heart rate controlled Eliquis on hold for angioplasty of lower extremities Will start lovenox Cont metoprolol Code(s): I48.91 - UNSPECIFIED ATRIAL FIBRILLATION (5) HTN (hypertension) Assessment/Plan: BP stable Cont meotprolol Code(s): I10 - ESSENTIAL (PRIMARY) HYPERTENSION (6) Congestive heart failure Assessment/Plan: Cont lasix Monitor electrolytes Code(s): I50.9 - HEART FAILURE, UNSPECIFIED Qualifiers: Congestive heart failure type: systolic Congestive heart failure chronicity: acute on chronic Qualified Code(s): I50.23 - Acute on chronic systolic (congestive) heart failure (7) Diabetes Assessment/Plan: Cont januvia Code(s): E11.9 - TYPE 2 DIABETES MELLITUS WITHOUT COMPLICATIONS (8) End stage renal disease Assessment/Plan: Dialysis as per renal Monitor electrolytes Cont renvela Code(s): N18.6 - END STAGE RENAL DISEASE (9) Anemia Code(s): D64.9 - ANEMIA, UNSPECIFIED Qualifiers: Anemia type: unspecified type Qualified Code(s): D64.9 - Anemia, unspecified (10) HLD (hyperlipidemia) Assessment/Plan: Cont lipitor/fenofibrate Code(s): E78.5 - HYPERLIPIDEMIA, UNSPECIFIED
[2016-05-22] MEDS: FUROSEMIDE 40 MG TABLET (FP) PO SCH ×2 (05:44→13:32)
[2016-05-22] MEDS: sitaGLIPtin PHOSPHATE 25 MG TABLET (FP) PO SCH (06:19)
[2016-05-22] MEDS: morphine CARPU-JECT 2 MG/1 ML DISP.SYRIN IVPUSH PRN ×2 (06:27→18:33)
[2016-05-22] MEDS: SEVELAMER CARBONATE 0.8 GM POWDER PACKET PO SCH ×3 (07:47→17:32)
[2016-05-22 08:14] LABS: BASOPHIL 1.3 % (0-2.0); EOSINOPHIL 1.7 % (0-4.5); MCHC 31.6 g/dl (32.0-35.9); MEAN CELL VOLUME 88.7 fl (80-96); MEAN PLT VOLUME 8.2 fl (7.5-11.1); NEUTROPHILS 72.6 % (42.8-82.8); PLATELET COUNT 352 K/MM3 (134-434); RDW 15.4 % (11.9-15.9); WHITE BLOOD COUNT 13.5 K/mm3 (4.0-10.0)
--- NOTE | 2016-05-22 08:26 | PN ---
Progress Note, Physician Chief Complaint: chf History of Present Illness: was only able to lie flat approx 5-10min at a time yest he says; however sob with walking has improved signif since admit; says his orthopnea is chronic x many yrs--always sleeps on left side at home; but now he is somewhat breathless (more than usual) even on left side s/p HD/UF today--feels LH at the moment, mild no cp, palpit ex cigs (remote) - Current Medication List Current Medications: Active Medications Atorvastatin Calcium (Lipitor -) 10 mg PO HS [facility] Last Admin: 05/21/16 21:10 Dose: 10 mg Cholecalciferol (Vitamin D3 -) 1,000 unit PO DAILY [facility] Last Admin: 05/21/16 09:01 Dose: 1,000 unit Enoxaparin Sodium (Lovenox -) 30 mg SQ DAILY [facility] Epoetin Campos (Epogen -) 4,000 units IVPUSH ONCE ONE Stop: 05/22/16 12:01 Fenofibric Acid (Trilipix -) 45 mg PO DAILY [facility] Last Admin: 05/21/16 09:01 Dose: 45 mg Furosemide (Lasix -) 80 mg PO BIDLASIX [facility] Last Admin: 05/22/16 05:44 Dose: Not Given Ceftriaxone Sodium (Rocephin 1gm Ivpb (Pre-Docked)) 50 mls @ 100 mls/hr IVPB DAILY [facility] Last Admin: 05/21/16 09:00 Dose: 100 mls/hr Metoprolol Succinate (Toprol Xl -) 200 mg PO BID [facility] Last Admin: 05/21/16 21:10 Dose: 200 mg Morphine Sulfate (Morphine Injection -) 4 mg IVPUSH Q6H PRN PRN Reason: PAIN Last Admin: 05/22/16 06:27 Dose: 4 mg Sertraline HCl (Zoloft -) 50 mg PO DAILY [facility] Last Admin: 05/21/16 09:01 Dose: 50 mg Sevelamer Carbonate (Renvela Powder Packet -) 1.6 gm PO TIDCM [facility] Last Admin: 05/22/16 07:47 Dose: Not Given Sitagliptin Phosphate (Januvia -) 25 mg PO ACBK [facility] Last Admin: 05/22/16 06:19 Dose: Not Given Sodium Thiosulfate (Sodium Thiosulfate) 25 gm IV MoWeFr@1300 [facility] Last Admin: 05/19/16 14:05 Dose: 25 gm - Objective Vital Signs: Vital Signs Temperature 97.9 F 05/22/16 07:11 Pulse Rate 93 H 05/22/16 07:11 Respiratory Rate 20 05/22/16 07:14 Blood Pressure 137/59 05/22/16 07:11 O2 Sat by Pulse Oximetry (%) 100 05/22/16 07:14 Constitutional: Yes: No Distress, Calm Eyes: No: Sclera Icterus HENT: No: Nasal Congestion Cardiovascular: Yes: Pulse Irregular, S1, S2, Other (PMI non diplaced). No: JVD , Gallop, Murmur Respiratory: Yes: CTA Bilaterally. No: Accessory Muscle Use, Rales, Wheezes Gastrointestinal: Yes: Normal Bowel Sounds, Soft. No: Tenderness Musculoskeletal: Yes: Other (No kyphosis) Extremities: No: Cold Edema: No Integumentary: No: Jaundice Neurological: Yes: Alert, Oriented (x3) Psychiatric: No: Agitated Labs: CBC, BMP 05/22/16 07:00 INR, PTT INR 1.59 (0.82-1.09) H 05/11/16 13:20 - ....Imaging EKG: Other (tele: afib, HRs good (90s-100)) Assessment/Plan echo 09/2015: mod lve, mild-mod dec lvef, global HK, nl rv, mod-sev mr, sev tr, marixa, nl rvsp echo 03/2016: mild lve, mod dec lvef, ant HK, nl rv size, marixa, mild mr, mod tr, rvsp 40-50 a/p: 60 m hx htn, hld, dm, cabg (04/2006), ESRD, afib/flutter, syst chf, esrd on HD, here with infected foot wound chronic syst chf: -significant sob with little activity and orthopnea earlier this admit -attempting incr frequency of HD/UF here, per d/w dr mcghee -cont po lasix 80 bid and HD for vol management (started 05/12) -recent echo 03/2016 here similar to 09/2015, shows mod reduced lvef--? etiology ( ? if EF already down at time of dx of CAD and CABG) -need accurate assessment of AF rate control (r/o tachy-CMP) and burden ( paroxysmal) as outpt -has been getting near-daily HD/UF -05/20: overall wt trend here 213-->202 -however remains with severe orthopnea -doubt copd sx (pt given trial of nebs and says was no better) -CXR without evidence of pulm congestion, however suspect he is still hiding volume and filling pressures are up -d/w'd renal: plan to continue frequent UF until objective evidence of vol depletion -05/21: s/p UF yesterday; wt down 202 to 201; -05/22: no UF yesterday; wt up 201 to 204 this am--now 199 s/p UF today -note: orthopnea sx is chronic x yrs, ? non-chf (obesity related? GERD?)--no hiatal hernia seen on CXR, has GERD sx's but not bad lately -cont HD/UF per prior plan--schedule per renal -needs outpt PFTs/pulm eval (continuing high dose BB for now, no wheezing) -con't bb -holding diovan 80 qd, hydralazine 25 bid, and isordil 10 qd given low bp possibly from sepsis, and low bp's at HD at home which may limit attempts at aggressive fluid removal here -reassess later once volume status better, if bp stable afib/flutter: -initially not well controlled--HRs to 140s at times. (cannot use dilt with chronic syst chf, low dose digoxin (HD pt) hi risk toxicity. Amio or consider AVN ablation/PPM if cannot adequately control HRs) -frequent self-d/c of monitor and storage bin tender limits assessment -current tele shows at times HR 130s -? if tachy contributing to LV dysfunction and/or hi intracardiac filling pressures -05/20 incr'd toprol 200 bid (prefer not to hold it on HD days, if bp can tolerate) -05/22: HR well controlled, cont same -if remains with frequent tachy, will try change metoprolol to propranolol -avoiding dig given HD pt with risks of fluctuating levels -cont eliquis 2.5 bid (presyncopal consistently following eliquis 5mg doses at home--???)--hope to incr later once chf status and bp drops from HD are stabilized ESRD -cont hd per renal -fluid removal as disc'd above htn: -bp's on low side here, possibly due to infection/cellulitis so holding diovan, nitrate, hydralazine for now, resume when bp stable -related to body equilibrating to recent start of HD -LH/presyncope episodes at home, ? (highly unusual) med effect (eliquis 5mg)-- suspect more likely related to hi chf med burden with intravasc fluid shifts from HD hld: -cont home statin cad s/p cabg: -ce's neg x2, EKG without ischemic changes here, no suspected angina sx's -recent echo w/o sig change from prior -cont statin, bb, ac le cellulitis, possible gangrene, PAD: -plans per vascular surgery, ID -per prescribing instrxns and Uptodate recs, no change in preop mgmt of eliquis rec'd for severe CKD--i.e. 2-3d still; -however given pt on HD and eliquis is not dialyzed out, rec favor 3-4d holding
[2016-05-22] MEDS ORDERED: PT OWN MED DRAWER 7, Y5N ONE (08:42)
[2016-05-22 08:46] LABS: ALBUMIN 2.8 g/dl (3.4-5.0); BILIRUBIN,TOTAL 0.4 mg/dL (0.2-1.0); CREATININE 6.3 mg/dL (0.7-1.3); TOT PROT 6.7 g/dl (6.4-8.2)
--- NOTE | 2016-05-22 08:59 | PN ---
Progress Note (short form) - Note Progress Note: No change. Left toes cyanotic and gangrenous skin changes. I will reschedule angiogram when OR time available.
[2016-05-22] MEDS: EPOETIN ALFA 2,000 UNITS/1 ML VIAL IVPUSH ONE ×2 (10:00→13:53)
[2016-05-22] MEDS: CEFTRIAXONE 50 ML IVPB SCH (12:09)
[2016-05-22] MEDS: METOPROLOL SUCCINATE 100 MG TAB.SR.24H (FP) PO SCH ×2 (12:09→21:33)
[2016-05-22] MEDS: SERTRALINE HCL 50 MG TABLET (FP) PO SCH (12:10)
[2016-05-22] MEDS: FENOFIBRIC ACID 45 MG CAP PO SCH (12:11)
[2016-05-22] MEDS: CHOLECALCIFEROL (VITAMIN D3) 1,000 UNIT TABLET (FP) PO SCH (12:11)
[2016-05-22] MEDS: ENOXAPARIN NA (PORCINE) 30 MG/0.3 ML DISP.SYRIN SQ SCH (12:12)
--- NOTE | 2016-05-22 12:48 | PN ---
Progress Note, Physician History of Present Illness: pulmonary alert,no distress,-cp,-sob,sitting up in bed - Current Medication List Current Medications: Active Medications Atorvastatin Calcium (Lipitor -) 10 mg PO HS [facility] Last Admin: 05/21/16 21:10 Dose: 10 mg Cholecalciferol (Vitamin D3 -) 1,000 unit PO DAILY [facility] Last Admin: 05/22/16 12:11 Dose: 1,000 unit Enoxaparin Sodium (Lovenox -) 30 mg SQ DAILY [facility] Last Admin: 05/22/16 12:12 Dose: Not Given Fenofibric Acid (Trilipix -) 45 mg PO DAILY [facility] Last Admin: 05/22/16 12:11 Dose: 45 mg Furosemide (Lasix -) 80 mg PO BIDLASIX [facility] Last Admin: 05/22/16 05:44 Dose: Not Given Ceftriaxone Sodium (Rocephin 1gm Ivpb (Pre-Docked)) 50 mls @ 100 mls/hr IVPB DAILY [facility] Last Admin: 05/22/16 12:09 Dose: 100 mls/hr Metoprolol Succinate (Toprol Xl -) 200 mg PO BID [facility] Last Admin: 05/22/16 12:09 Dose: 200 mg Morphine Sulfate (Morphine Injection -) 4 mg IVPUSH Q6H PRN PRN Reason: PAIN Last Admin: 05/22/16 06:27 Dose: 4 mg Sertraline HCl (Zoloft -) 50 mg PO DAILY [facility] Last Admin: 05/22/16 12:10 Dose: 50 mg Sevelamer Carbonate (Renvela Powder Packet -) 1.6 gm PO TIDCM [facility] Last Admin: 05/22/16 12:08 Dose: 1.6 gm Sitagliptin Phosphate (Januvia -) 25 mg PO ACBK [facility] Last Admin: 05/22/16 06:19 Dose: Not Given Sodium Thiosulfate (Sodium Thiosulfate) 25 gm IV MoWeFr@1300 [facility] Last Admin: 05/19/16 14:05 Dose: 25 gm - Objective Vital Signs: Vital Signs Temperature 97.9 F 05/22/16 07:11 Pulse Rate 81 05/22/16 11:00 Respiratory Rate 18 05/22/16 11:00 Blood Pressure 112/95 05/22/16 11:00 O2 Sat by Pulse Oximetry (%) 100 05/22/16 07:14 Constitutional: Yes: Well Nourished, Calm Eyes: Yes: WNL HENT: Yes: WNL Neck: Yes: WNL Cardiovascular: Yes: Pulse Irregular, S1, S2 Respiratory: Yes: Diminished Gastrointestinal: Yes: Normal Bowel Sounds, Soft Extremities: Yes: Other (BANDAGED) Edema: Yes Labs: CBC, BMP 05/22/16 07:00 05/22/16 07:00 INR, PTT INR 1.59 (0.82-1.09) H 05/11/16 13:20 Problem List - Problems (1) Afib Code(s): I48.91 - UNSPECIFIED ATRIAL FIBRILLATION (3) CHF exacerbation Code(s): I50.9 - HEART FAILURE, UNSPECIFIED Qualifiers: Congestive heart failure type: unspecified congestive heart failure type Qualified Code(s): I50.9 - Heart failure, unspecified (4) Cellulitis and abscess of foot Code(s): L03.119 - CELLULITIS OF UNSPECIFIED PART OF LIMB L02.619 - CUTANEOUS ABSCESS OF UNSPECIFIED FOOT (5) Microangiopathy, 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 (6) Anemia Code(s): D64.9 - ANEMIA, UNSPECIFIED Qualifiers: Anemia type: unspecified type Qualified Code(s): D64.9 - Anemia, unspecified (7) Atrial fibrillation with RVR Code(s): I48.91 - UNSPECIFIED ATRIAL FIBRILLATION (8) Bilateral shoulder pain Code(s): M25.511 - PAIN IN RIGHT SHOULDER M25.512 - PAIN IN LEFT SHOULDER (9) Cellulitis of foot Code(s): L03.119 - CELLULITIS OF UNSPECIFIED PART OF LIMB (10) Dyspnea on exertion Code(s): R06.09 - OTHER FORMS OF DYSPNEA (11) HTN (hypertension) Code(s): I10 - ESSENTIAL (PRIMARY) HYPERTENSION (12) Atrial flutter Code(s): I48.92 - UNSPECIFIED ATRIAL FLUTTER (13) CAD, multiple vessel Code(s): I25.10 - ATHSCL HEART DISEASE OF [place] CORONARY ARTERY W/O ANG PCTRS (14) Congestive heart failure Code(s): I50.9 - HEART FAILURE, UNSPECIFIED Qualifiers: Congestive heart failure type: systolic Congestive heart failure chronicity: acute on chronic Qualified Code(s): I50.23 - Acute on chronic systolic (congestive) heart failure (15) Diabetes Code(s): E11.9 - TYPE 2 DIABETES MELLITUS WITHOUT COMPLICATIONS (16) End stage renal disease Code(s): N18.6 - END STAGE RENAL DISEASE Assessment/Plan IMP DYSPNEA MULTIPLE FACTORS,CHF,COPD PULMONARY HTN ASHD S/P CABG ESRD ON HD AFIB HTN DM PVD CELLULITIS LIKELY OSAS PLAN HD PER RENAL CONTINUE ANTIBIOTICS PER ID INHALED BRONCHODILATORS SUPPLEMENTAL O2 CHECK O2 SAT AT REST AND POST EXERCISE ON RA PFTS OUTPATIENT SLEEP STUDIES OUTPATIENT ANGIO DR KIRA LUNA
[2016-05-22] MEDS: SODIUM THIOSULFATE 12.5 GM/50 ML VIAL IV SCH (13:53)
--- NOTE | 2016-05-22 16:50 | PN ---
Progress Note (short form) - Note Progress Note: Renal Follow up for ESRD Pt seen and examined with dialysis earlier today BP stable, mild hypotension at begining of the treatment pt did feel weak and lightheaded UF 2.3L total no sob or chest pain Vital Signs Temperature 97.9 F 05/22/16 14:00 Pulse Rate 89 05/22/16 14:00 Respiratory Rate 20 05/22/16 14:00 Blood Pressure 113/51 05/22/16 14:00 O2 Sat by Pulse Oximetry (%) 100 05/22/16 07:14 Current Medications Atorvastatin Calcium (Lipitor -) 10 mg PO HS [facility] Last Admin: 05/21/16 21:10 Dose: 10 mg Cholecalciferol (Vitamin D3 -) 1,000 unit PO DAILY [facility] Last Admin: 05/22/16 12:11 Dose: 1,000 unit Enoxaparin Sodium (Lovenox -) 30 mg SQ DAILY [facility] Last Admin: 05/22/16 12:12 Dose: Not Given Fenofibric Acid (Trilipix -) 45 mg PO DAILY [facility] Last Admin: 05/22/16 12:11 Dose: 45 mg Furosemide (Lasix -) 80 mg PO BIDLASIX [facility] Last Admin: 05/22/16 05:44 Dose: Not Given Ceftriaxone Sodium (Rocephin 1gm Ivpb (Pre-Docked)) 50 mls @ 100 mls/hr IVPB DAILY [facility] Last Admin: 05/22/16 12:09 Dose: 100 mls/hr Metoprolol Succinate (Toprol Xl -) 200 mg PO BID [facility] Last Admin: 05/22/16 12:09 Dose: 200 mg Morphine Sulfate (Morphine Injection -) 4 mg IVPUSH Q6H PRN PRN Reason: PAIN Last Admin: 05/22/16 06:27 Dose: 4 mg Sertraline HCl (Zoloft -) 50 mg PO DAILY [facility] Last Admin: 05/22/16 12:10 Dose: 50 mg Sevelamer Carbonate (Renvela Powder Packet -) 1.6 gm PO TIDCM [facility] Last Admin: 05/22/16 12:08 Dose: 1.6 gm Sitagliptin Phosphate (Januvia -) 25 mg PO ACBK [facility] Last Admin: 05/22/16 06:19 Dose: Not Given Sodium Thiosulfate (Sodium Thiosulfate) 25 gm IV MoWeFr@1300 [facility] Last Admin: 05/22/16 13:53 Dose: Not Given Gen: awake and alert CVS: RRR, No M/R Lungs: CTA, no rales or wheeze Abd: soft NT/ND Ext: Trace edema in LE. Heels and foot in dressing CBC, BMP 05/20/16 06:35 05/20/16 06:00 Laboratory Tests 05/20/16 06:00 Calcium 8.9 Phosphorus 4.0 Albumin 3.0 L Current Medications Atorvastatin Calcium (Lipitor -) 10 mg PO HS [facility] Last Admin: 05/19/16 21:44 Dose: 10 mg Cholecalciferol (Vitamin D3 -) 1,000 unit PO DAILY [facility] Last Admin: 05/20/16 09:59 Dose: 1,000 unit Fenofibric Acid (Trilipix -) 45 mg PO DAILY [facility] Last Admin: 05/20/16 09:59 Dose: 45 mg Fentanyl (Sublimaze Injection -) 50 mcg IVPUSH [id number] PRN PRN Reason: PAIN Stop: 05/22/16 16:44 Furosemide (Lasix -) 80 mg PO BIDLASIX [facility] Last Admin: 05/20/16 06:06 Dose: 80 mg Ceftriaxone Sodium (Rocephin 1gm Ivpb (Pre-Docked)) 50 mls @ 100 mls/hr IVPB DAILY [facility] Last Admin: 05/20/16 09:59 Dose: 100 mls/hr Sodium Chloride (Normal Saline -) 1,000 mls @ 42 mls/hr IV ASDIR [facility] Last Admin: 05/19/16 16:30 Dose: Not Given Metoprolol Succinate (Toprol Xl -) 200 mg PO BID [facility] Morphine Sulfate (Morphine Injection -) 4 mg IVPUSH Q6H PRN PRN Reason: PAIN Last Admin: 05/20/16 09:59 Dose: 4 mg Sertraline HCl (Zoloft -) 50 mg PO DAILY [facility] Last Admin: 05/20/16 09:59 Dose: 50 mg Sevelamer Carbonate (Renvela Powder Packet -) 1.6 gm PO TIDCM [facility] Last Admin: 05/20/16 09:59 Dose: Not Given Sitagliptin Phosphate (Januvia -) 25 mg PO ACBK [facility] Last Admin: 05/20/16 06:06 Dose: 25 mg Sodium Thiosulfate (Sodium Thiosulfate) 25 gm IV MoWeFr@1300 [facility] Last Admin: 05/19/16 14:05 Dose: 25 gm A/P 60 year old gentleman with PMhx of ESRD (recently started on dialysis), CAD s/p CABG, DM Type 2, Depression, CHF who with LE weakness s/p recent fall and wound on right foot. 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
[2016-05-22] MEDS: ATORVASTATIN CA 10 MG TABLET (FP) PO SCH (21:33)
--- NOTE | 2016-05-22 23:29 | PN ---
Progress Note, Physician History of Present Illness: No new complaints - Current Medication List Current Medications: Active Medications Atorvastatin Calcium (Lipitor -) 10 mg PO HS [facility] Last Admin: 05/22/16 21:33 Dose: 10 mg Cholecalciferol (Vitamin D3 -) 1,000 unit PO DAILY [facility] Last Admin: 05/22/16 12:11 Dose: 1,000 unit Enoxaparin Sodium (Lovenox -) 30 mg SQ DAILY [facility] Last Admin: 05/22/16 12:12 Dose: Not Given Fenofibric Acid (Trilipix -) 45 mg PO DAILY [facility] Last Admin: 05/22/16 12:11 Dose: 45 mg Furosemide (Lasix -) 80 mg PO BIDLASIX [facility] Last Admin: 05/22/16 13:32 Dose: 80 mg Ceftriaxone Sodium (Rocephin 1gm Ivpb (Pre-Docked)) 50 mls @ 100 mls/hr IVPB DAILY [facility] Last Admin: 05/22/16 12:09 Dose: 100 mls/hr Metoprolol Succinate (Toprol Xl -) 200 mg PO BID [facility] Last Admin: 05/22/16 21:33 Dose: 200 mg Morphine Sulfate (Morphine Injection -) 4 mg IVPUSH Q6H PRN PRN Reason: PAIN Last Admin: 05/22/16 18:33 Dose: 4 mg Sertraline HCl (Zoloft -) 50 mg PO DAILY [facility] Last Admin: 05/22/16 12:10 Dose: 50 mg Sevelamer Carbonate (Renvela Powder Packet -) 1.6 gm PO TIDCM [facility] Last Admin: 05/22/16 17:32 Dose: 1.6 gm Sitagliptin Phosphate (Januvia -) 25 mg PO ACBK [facility] Last Admin: 05/22/16 06:19 Dose: Not Given Sodium Thiosulfate (Sodium Thiosulfate) 25 gm IV MoWeFr@1300 [facility] Last Admin: 05/22/16 13:53 Dose: Not Given - Objective Vital Signs: Vital Signs Temperature 98.0 F 05/22/16 17:00 Pulse Rate 94 H 05/22/16 17:00 Respiratory Rate 20 05/22/16 17:00 Blood Pressure 119/67 05/22/16 17:00 O2 Sat by Pulse Oximetry (%) 100 05/22/16 07:14 Cardiovascular: Yes: WNL, Regular Rate and Rhythm Respiratory: Yes: WNL, Regular, CTA Bilaterally Gastrointestinal: Yes: WNL, Normal Bowel Sounds, Soft Labs: CBC, BMP 05/22/16 07:00 05/22/16 07:00 INR, PTT INR 1.59 (0.82-1.09) H 05/11/16 13:20 Problem List - Problems (1) Cellulitis of foot Code(s): L03.119 - CELLULITIS OF UNSPECIFIED PART OF LIMB (2) Dyspnea Code(s): R06.00 - DYSPNEA, UNSPECIFIED (3) Afib Code(s): I48.91 - UNSPECIFIED ATRIAL FIBRILLATION (4) HTN (hypertension) Code(s): I10 - ESSENTIAL (PRIMARY) HYPERTENSION (5) Congestive heart failure Code(s): I50.9 - HEART FAILURE, UNSPECIFIED Qualifiers: Qualified Code(s): I50.23 - Acute on chronic systolic (congestive) heart failure (6) Diabetes Code(s): E11.9 - TYPE 2 DIABETES MELLITUS WITHOUT COMPLICATIONS (7) End stage renal disease Code(s): N18.6 - END STAGE RENAL DISEASE (8) Anemia Code(s): D64.9 - ANEMIA, UNSPECIFIED Qualifiers: Qualified Code(s): D64.9 - Anemia, unspecified (9) HLD (hyperlipidemia) Code(s): E78.5 - HYPERLIPIDEMIA, UNSPECIFIED
[2016-05-23] MEDS: morphine CARPU-JECT 2 MG/1 ML DISP.SYRIN IVPUSH PRN ×3 (01:03→17:37)
[2016-05-23] MEDS: sitaGLIPtin PHOSPHATE 25 MG TABLET (FP) PO SCH (06:46)
[2016-05-23] MEDS: FUROSEMIDE 40 MG TABLET (FP) PO SCH ×2 (06:46→13:20)
--- NOTE | 2016-05-23 10:59 | PN ---
Progress Note (short form) - Note Progress Note: Renal Follow up for ESRD Pt seen and examined at the bedside able to lay down flat now has pain in the thigh and foot no sob or chest pain for isolated UF today in dialysis Vital Signs Temperature 97.0 F L 05/23/16 06:46 Pulse Rate 62 05/23/16 06:46 Respiratory Rate 20 05/23/16 06:46 Blood Pressure 111/57 05/23/16 06:46 O2 Sat by Pulse Oximetry (%) 96 05/22/16 22:00 Intake & Output 05/20/16 05/21/16 05/22/16 05/23/16 23:59 23:59 23:59 23:59 Intake Total 775 690 940 Balance 775 690 940 Weight 202 lb 9.677 oz 201 lb 204 lb 12.8 oz 200 lb 6.4 oz Gen: awake and alert CVS: RRR, No M/R Lungs: CTA, no rales or wheeze Abd: soft NT/ND Ext: Trace edema in LE. Heels and foot in dressing CBC, BMP 05/22/16 07:00 05/22/16 07:00 Laboratory Tests 05/22/16 07:00 Calcium 9.0 Albumin 2.8 L Current Medications Atorvastatin Calcium (Lipitor -) 10 mg PO HS [facility] Last Admin: 05/22/16 21:33 Dose: 10 mg Cholecalciferol (Vitamin D3 -) 1,000 unit PO DAILY [facility] Last Admin: 05/22/16 12:11 Dose: 1,000 unit Enoxaparin Sodium (Lovenox -) 30 mg SQ DAILY [facility] Last Admin: 05/22/16 12:12 Dose: Not Given Fenofibric Acid (Trilipix -) 45 mg PO DAILY [facility] Last Admin: 05/22/16 12:11 Dose: 45 mg Furosemide (Lasix -) 80 mg PO BIDLASIX [facility] Last Admin: 05/23/16 06:46 Dose: Not Given Ceftriaxone Sodium (Rocephin 1gm Ivpb (Pre-Docked)) 50 mls @ 100 mls/hr IVPB DAILY [facility] Last Admin: 05/22/16 12:09 Dose: 100 mls/hr Metoprolol Succinate (Toprol Xl -) 200 mg PO BID [facility] Last Admin: 05/22/16 21:33 Dose: 200 mg Morphine Sulfate (Morphine Injection -) 4 mg IVPUSH Q6H PRN PRN Reason: PAIN Last Admin: 05/23/16 01:03 Dose: 4 mg Sertraline HCl (Zoloft -) 50 mg PO DAILY [facility] Last Admin: 05/22/16 12:10 Dose: 50 mg Sevelamer Carbonate (Renvela Powder Packet -) 1.6 gm PO TIDCM [facility] Last Admin: 05/22/16 17:32 Dose: 1.6 gm Sitagliptin Phosphate (Januvia -) 25 mg PO ACBK [facility] Last Admin: 05/23/16 06:46 Dose: Not Given Sodium Thiosulfate (Sodium Thiosulfate) 25 gm IV MoWeFr@1300 [facility] Last Admin: 05/22/16 13:53 Dose: Not Given A/P 60 year old gentleman with PMhx of ESRD (recently started on dialysis), CAD s/p CABG, DM Type 2, Depression, CHF who with LE weakness s/p recent fall and wound on right foot. 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
--- NOTE | 2016-05-23 11:11 | PN ---
Progress Note (short form) - Note Progress Note: Chief Complaint: chf History of Present Illness: denies sob today. no cp, palps. dizziness only immediately after HD. + LE pain. plan for UF today and angio ex cigs (remote) Current Medications Atorvastatin Calcium (Lipitor -) 10 mg PO HS [facility] Last Admin: 05/22/16 21:33 Dose: 10 mg Enoxaparin Sodium (Lovenox -) 30 mg SQ DAILY [facility] Last Admin: 05/22/16 12:12 Dose: Not Given Epoetin Campos (Epogen -) 4,000 units IVPUSH ONCE ONE Stop: 05/24/16 06:01 Fenofibric Acid (Trilipix -) 45 mg PO DAILY [facility] Last Admin: 05/22/16 12:11 Dose: 45 mg Furosemide (Lasix -) 80 mg PO BIDLASIX [facility] Last Admin: 05/23/16 06:46 Dose: Not Given Ceftriaxone Sodium (Rocephin 1gm Ivpb (Pre-Docked)) 50 mls @ 100 mls/hr IVPB DAILY [facility] Last Admin: 05/22/16 12:09 Dose: 100 mls/hr Metoprolol Succinate (Toprol Xl -) 200 mg PO BID [facility] Last Admin: 05/22/16 21:33 Dose: 200 mg Morphine Sulfate (Morphine Injection -) 4 mg IVPUSH Q6H PRN PRN Reason: PAIN Last Admin: 05/23/16 01:03 Dose: 4 mg Sertraline HCl (Zoloft -) 50 mg PO DAILY [facility] Last Admin: 05/22/16 12:10 Dose: 50 mg Sevelamer Carbonate (Renvela Powder Packet -) 1.6 gm PO TIDCM [facility] Last Admin: 05/22/16 17:32 Dose: 1.6 gm Sitagliptin Phosphate (Januvia -) 25 mg PO ACBK [facility] Last Admin: 05/23/16 06:46 Dose: Not Given Sodium Thiosulfate (Sodium Thiosulfate) 25 gm IV MoWeFr@1300 [facility] Last Admin: 05/22/16 13:53 Dose: Not Given Vital Signs - 24 hr 05/22/16 05/22/16 05/22/16 14:00 17:00 21:00 Temperature 97.9 F 98.0 F Pulse Rate 89 94 H Respiratory 20 20 20 Rate Blood Pressure 113/51 119/67 O2 Sat by Pulse 96 Oximetry (%) 05/22/16 05/23/16 05/23/16 22:00 02:12 06:46 Temperature 98.3 F 97.2 F L 97.0 F L Pulse Rate 90 97 H 62 Respiratory 20 20 20 Rate Blood Pressure 126/50 127/66 111/57 O2 Sat by Pulse 96 Oximetry (%) Intake & Output 05/21/16 05/22/16 05/23/16 05/24/16 07:59 07:59 07:59 07:59 Intake Total 880 640 870 Balance 880 640 870 Weight 201 lb 204 lb 12.8 oz 200 lb 6.4 oz Constitutional: Yes: No Distress, Calm Eyes: No: Sclera Icterus HENT: No: Nasal Congestion Cardiovascular: Yes: Pulse Irregular, S1, S2, Distant heart sounds. Other (PMI non diplaced). No: JVD, Gallop, Murmur Respiratory: Yes: CTA Bilaterally. No: Accessory Muscle Use, Rales, Wheezes Gastrointestinal: Yes: Normal Bowel Sounds, Soft. No: Tenderness Musculoskeletal: Yes: Other (No kyphosis) Extremities: No: Cold Edema: No Integumentary: No: Jaundice Neurological: Yes: Alert, Oriented (x3) Psychiatric: No: Agitated Labs: no CBC, BMP today Laboratory Tests 05/22/16 07:00 Albumin 2.8 L - ....Imaging EKG: Other (prior tele: afib, HRs good (90s-100)) Currently declining telemetry monitoring. Assessment/Plan echo 09/2015: mod lve, mild-mod dec lvef, global HK, nl rv, mod-sev mr, sev tr, marixa, nl rvsp echo 03/2016: mild lve, mod dec lvef, ant HK, nl rv size, marixa, mild mr, mod tr, rvsp 40-50 a/p: 60 m hx htn, hld, dm, cabg (04/2006), ESRD, afib/flutter, syst chf, esrd on HD, here with infected foot wound chronic syst chf: -significant sob with little activity and orthopnea earlier this admit -attempting incr frequency of HD/UF here, per d/w dr mcghee -cont po lasix 80 bid and HD for vol management (started 05/12) -recent echo 03/2016 here similar to 09/2015, shows mod reduced lvef--? etiology ( ? if EF already down at time of dx of CAD and CABG) -need accurate assessment of AF rate control (r/o tachy-CMP) and burden ( paroxysmal) as outpt -has been getting near-daily HD/UF -05/20: overall wt trend here 213-->202 -however remains with severe orthopnea -doubt copd sx (pt given trial of nebs and says was no better) -CXR without evidence of pulm congestion, however suspect he is still hiding volume and filling pressures are up -d/w'd renal: plan to continue frequent UF until objective evidence of vol depletion -05/21: s/p UF yesterday; wt down 202 to 201; -05/22: no UF yesterday; wt up 201 to 204 this am--now 199 s/p UF today -note: orthopnea sx is chronic x yrs, ? non-chf (obesity related? GERD?)--no hiatal hernia seen on CXR, has GERD sx's but not bad lately -cont HD/UF per prior plan--schedule per renal -needs outpt PFTs/pulm eval (continuing high dose BB for now, no wheezing) -holding diovan 80 qd, hydralazine 25 bid, and isordil 10 qd given low bp possibly from sepsis, and low bp's at HD at home which may limit attempts at aggressive fluid removal here -reassess later once volume status better, if bp stable - 05/23: con't home regimen of 80 mg po bid and volume management per renal/HD. afib/flutter: -initially not well controlled--HRs to 140s at times. (cannot use dilt with chronic syst chf, low dose digoxin (HD pt) hi risk toxicity. Amio or consider AVN ablation/PPM if cannot adequately control HRs) -frequent self-d/c of air sampling and monitoring limits assessment -current tele shows at times HR 130s -? if tachy contributing to LV dysfunction and/or hi intracardiac filling pressures -05/20 incr'd toprol 200 bid (prefer not to hold it on HD days, if bp can tolerate) -05/22-05/23: Overall rate controlled, cont same -if remains with frequent tachy, can try change metoprolol to propranolol -avoiding dig given HD pt with risks of fluctuating levels -cont eliquis 2.5 bid (presyncopal consistently following eliquis 5mg doses at home--???)--hope to incr later once chf status and bp drops from HD are stabilized ESRD -cont hd per renal -fluid removal as disc'd above htn: -bp's on low side here, possibly due to infection/cellulitis so holding diovan, nitrate, hydralazine for now, resume when bp stable -related to body equilibrating to recent start of HD -LH/presyncope episodes at home, ? (highly unusual) med effect (eliquis 5mg)-- suspect more likely related to hi chf med burden with intravasc fluid shifts from HD hld: -cont home statin cad s/p cabg: -ce's neg x2, EKG without ischemic changes here, no suspected angina sx's -recent echo w/o sig change from prior -cont statin, bb, ac le cellulitis, possible gangrene, PAD: -plans per vascular surgery, ID -per prescribing instrxns and Uptodate recs, no change in preop mgmt of eliquis rec'd for severe CKD--i.e. 2-3d still; -however given pt on HD and eliquis is not dialyzed out, rec favor 3-4d holding
[2016-05-23] MEDS: SEVELAMER CARBONATE 0.8 GM POWDER PACKET PO SCH ×4 (11:16→17:18)
[2016-05-23] MEDS: ENOXAPARIN NA (PORCINE) 30 MG/0.3 ML DISP.SYRIN SQ SCH (11:26)
[2016-05-23] MEDS: METOPROLOL SUCCINATE 100 MG TAB.SR.24H (FP) PO SCH ×3 (11:34→23:07)
[2016-05-23] MEDS: CEFTRIAXONE 50 ML IVPB SCH ×2 (11:34→14:41)
[2016-05-23] MEDS: SERTRALINE HCL 50 MG TABLET (FP) PO SCH ×2 (11:34→13:21)
[2016-05-23] MEDS ORDERED: PT OWN MED DRAWER 7, Y5N ONE (11:51)
[2016-05-23] MEDS ORDERED: EPOETIN ALFA 2,000 UNITS/1 ML VIAL IVPUSH ONE ×2 (12:00→12:15)
--- NOTE | 2016-05-23 13:17 | SPA.PREOP ---
- PRE-OP NOTE Dx: non-healing ulcer left toes Planned Procedure: left leg angiogram/angioplasty Surgeon: Dr. Young Last Vital Signs Temp Pulse Resp BP Pulse Ox 97.6 F 66 16 95/45 96 05/23/16 12:40 05/23/16 13:00 05/23/16 13:00 05/23/16 13:00 05/22/16 22:00 Lab Results WBC 13.5 K/mm3 (4.0-10.0) H 05/22/16 07:00 RBC 3.60 M/mm3 (4.00-5.60) L 05/22/16 07:00 Hgb 10.1 GM/dL (11.7-16.9) L 05/22/16 07:00 Hct 32.0 % (35.4-49) L 05/22/16 07:00 MCV 88.7 fl (80-96) 05/22/16 07:00 MCHC 31.6 g/dl (32.0-35.9) L 05/22/16 07:00 RDW 15.4 % (11.9-15.9) 05/22/16 07:00 Plt Count 352 K/MM3 (134-434) 05/22/16 07:00 Sodium 138 mmol/L (136-145) 05/22/16 07:00 Potassium 4.0 mmol/L (3.5-5.1) 05/22/16 07:00 Chloride 93 mmol/L (98-107) L 05/22/16 07:00 Carbon Dioxide 29 mmol/L (21-32) 05/22/16 07:00 Anion Gap 16 (8-16) 05/22/16 07:00 BUN 62 mg/dL (7-18) H D 05/22/16 07:00 Creatinine 6.3 mg/dL (0.7-1.3) H D 05/22/16 07:00 Random Glucose 84 mg/dL (74-106) 05/22/16 07:00 Calcium 9.0 mg/dL (8.5-10.1) 05/22/16 07:00 Blood Type O POSITIVE 05/23/16 11:47 Antibody Screen Negative 05/23/16 11:47 INR 1.59 (0.82-1.09) H 05/11/16 13:20 - IMAGING Chest X-ray: Other (05/20- no evidnece of infitrate/effusion) - ASSESSMENT/PLAN 1. Make NPO after breakfast except po meds 2. Medical optimization / clearance 3. Pt to have HD in the am, ordered repeat K after HD 4. T&S Visit type - Case Type Case Type: ED Admission - Emergency Emergency Visit: Yes ED Registration Date: 05/11/16 Care time: The patient presented to the Emergency Department on the above date and was hospitalized for further evaluation of their emergent condition. - New patient This patient is new to me today: Yes Date on this admission: 05/23/16 - Critical Care Critical Care patient: No
[2016-05-23] MEDS: FENOFIBRIC ACID 45 MG CAP PO SCH (13:20)
[2016-05-23 13:33] LABS: MCH 28.1 pg (25.7-33.7); MCHC 31.4 g/dl (32.0-35.9); MEAN CELL VOLUME 89.6 fl (80-96); MEAN PLT VOLUME 8.3 fl (7.5-11.1); PLATELET COUNT 344 K/MM3 (134-434); RDW 15.8 % (11.9-15.9); WHITE BLOOD COUNT 13.1 K/mm3 (4.0-10.0)
[2016-05-23 13:52] LABS: CALCIUM 9.2 mg/dL (8.5-10.1); CREATININE 5.5 mg/dL (0.7-1.3); PHOSPHOROUS 5.4 mg/dL (2.5-4.9)
--- NOTE | 2016-05-23 18:19 | PN ---
Progress Note (short form) - Note Progress Note: Anesthesiology preop. Patient seen and examined.Chart reviewed. Pat symptoms of CHF has improved. Pat is ambulating denies CP or SOB on exertion. No orthopnea. Patient gets HD 3 days a week on schedule, in addition getting 2-3 hours extra to get rid of excessive water. Today 05/23/16,2 hrs dialysis. VSS Consented for MAC and General Anesthesia. Patient is optimized for surgery on 05/24/16. The well tester/ medical clearance is pending though.
--- NOTE | 2016-05-23 20:24 | PN ---
Progress Note, Physician Chief Complaint: No new complaints History of Present Illness: No new complaints - Current Medication List Current Medications: Active Medications Atorvastatin Calcium (Lipitor -) 10 mg PO HS [facility] Last Admin: 05/22/16 21:33 Dose: 10 mg Enoxaparin Sodium (Lovenox -) 30 mg SQ DAILY [facility] Last Admin: 05/23/16 11:26 Dose: Not Given Epoetin Campos (Epogen -) 4,000 units IVPUSH ONCE ONE Stop: 05/24/16 12:01 Fenofibric Acid (Trilipix -) 45 mg PO DAILY [facility] Last Admin: 05/23/16 13:20 Dose: Not Given Furosemide (Lasix -) 80 mg PO BIDLASIX [facility] Last Admin: 05/23/16 13:20 Dose: Not Given Ceftriaxone Sodium (Rocephin 1gm Ivpb (Pre-Docked)) 50 mls @ 100 mls/hr IVPB DAILY [facility] Last Admin: 05/23/16 14:41 Dose: 100 mls/hr Metoprolol Succinate (Toprol Xl -) 200 mg PO BID [facility] Last Admin: 05/23/16 13:21 Dose: Not Given Morphine Sulfate (Morphine Injection -) 4 mg IVPUSH Q6H PRN PRN Reason: PAIN Last Admin: 05/23/16 17:37 Dose: 4 mg Sertraline HCl (Zoloft -) 50 mg PO DAILY [facility] Last Admin: 05/23/16 13:21 Dose: Not Given Sevelamer Carbonate (Renvela Powder Packet -) 1.6 gm PO TIDCM [facility] Last Admin: 05/23/16 17:18 Dose: Not Given Sitagliptin Phosphate (Januvia -) 25 mg PO ACBK [facility] Last Admin: 05/23/16 06:46 Dose: Not Given Sodium Thiosulfate (Sodium Thiosulfate) 25 gm IV MoWeFr@1300 [facility] Last Admin: 05/22/16 13:53 Dose: Not Given - Objective Vital Signs: Vital Signs Temperature 97.3 F L 05/23/16 17:00 Pulse Rate 93 H 05/23/16 17:00 Respiratory Rate 20 05/23/16 17:00 Blood Pressure 129/61 05/23/16 17:00 O2 Sat by Pulse Oximetry (%) 96 05/23/16 10:00 Cardiovascular: Yes: WNL, Regular Rate and Rhythm Respiratory: Yes: WNL, Regular, CTA Bilaterally Gastrointestinal: Yes: WNL, Normal Bowel Sounds, Soft Labs: CBC, BMP 05/23/16 13:00 05/23/16 13:00 INR, PTT INR 1.59 (0.82-1.09) H 05/11/16 13:20 Problem List - Problems (1) Cellulitis of foot Code(s): L03.119 - CELLULITIS OF UNSPECIFIED PART OF LIMB (2) Dyspnea Code(s): R06.00 - DYSPNEA, UNSPECIFIED (3) Afib Code(s): I48.91 - UNSPECIFIED ATRIAL FIBRILLATION (4) HTN (hypertension) Code(s): I10 - ESSENTIAL (PRIMARY) HYPERTENSION (5) Congestive heart failure Code(s): I50.9 - HEART FAILURE, UNSPECIFIED Qualifiers: Qualified Code(s): I50.23 - Acute on chronic systolic (congestive) heart failure (6) Diabetes Code(s): E11.9 - TYPE 2 DIABETES MELLITUS WITHOUT COMPLICATIONS (7) End stage renal disease Code(s): N18.6 - END STAGE RENAL DISEASE (8) Anemia Code(s): D64.9 - ANEMIA, UNSPECIFIED Qualifiers: Qualified Code(s): D64.9 - Anemia, unspecified (9) HLD (hyperlipidemia) Code(s): E78.5 - HYPERLIPIDEMIA, UNSPECIFIED
[2016-05-23] MEDS: ATORVASTATIN CA 10 MG TABLET (FP) PO SCH (23:06)
[2016-05-24] MEDS: morphine CARPU-JECT 2 MG/1 ML DISP.SYRIN IVPUSH PRN ×3 (00:12→22:35)
--- NOTE | 2016-05-24 00:48 | PN ---
Progress Note, Physician History of Present Illness: Pt seen and examined on 05/23/16 however note is being entered now No new complaints - Current Medication List Current Medications: Active Medications Atorvastatin Calcium (Lipitor -) 10 mg PO HS [facility] Last Admin: 05/23/16 23:06 Dose: 10 mg Enoxaparin Sodium (Lovenox -) 30 mg SQ DAILY [facility] Last Admin: 05/23/16 11:26 Dose: Not Given Epoetin Campos (Epogen -) 4,000 units IVPUSH ONCE ONE Stop: 05/24/16 12:01 Fenofibric Acid (Trilipix -) 45 mg PO DAILY [facility] Last Admin: 05/23/16 13:20 Dose: Not Given Furosemide (Lasix -) 80 mg PO BIDLASIX [facility] Last Admin: 05/23/16 13:20 Dose: Not Given Ceftriaxone Sodium (Rocephin 1gm Ivpb (Pre-Docked)) 50 mls @ 100 mls/hr IVPB DAILY [facility] Last Admin: 05/23/16 14:41 Dose: 100 mls/hr Metoprolol Succinate (Toprol Xl -) 200 mg PO BID [facility] Last Admin: 05/23/16 23:07 Dose: 200 mg Morphine Sulfate (Morphine Injection -) 4 mg IVPUSH Q6H PRN PRN Reason: PAIN Last Admin: 05/24/16 00:12 Dose: 4 mg Sertraline HCl (Zoloft -) 50 mg PO DAILY [facility] Last Admin: 05/23/16 13:21 Dose: Not Given Sevelamer Carbonate (Renvela Powder Packet -) 1.6 gm PO TIDCM [facility] Last Admin: 05/23/16 17:18 Dose: Not Given Sitagliptin Phosphate (Januvia -) 25 mg PO ACBK [facility] Last Admin: 05/23/16 06:46 Dose: Not Given Sodium Thiosulfate (Sodium Thiosulfate) 25 gm IV MoWeFr@1300 [facility] Last Admin: 05/22/16 13:53 Dose: Not Given - Objective Vital Signs: Vital Signs Temperature 97.3 F L 05/23/16 17:00 Pulse Rate 93 H 05/23/16 17:00 Respiratory Rate 20 05/23/16 17:00 Blood Pressure 129/61 05/23/16 17:00 O2 Sat by Pulse Oximetry (%) 96 05/23/16 10:00 Cardiovascular: Yes: WNL, Regular Rate and Rhythm Respiratory: Yes: WNL, Regular, CTA Bilaterally Gastrointestinal: Yes: WNL, Normal Bowel Sounds, Soft Labs: CBC, BMP 05/23/16 13:00 05/23/16 13:00 INR, PTT INR 1.59 (0.82-1.09) H 05/11/16 13:20 Problem List - Problems (1) Cellulitis of foot Code(s): L03.119 - CELLULITIS OF UNSPECIFIED PART OF LIMB (2) Dyspnea Code(s): R06.00 - DYSPNEA, UNSPECIFIED (3) Afib Code(s): I48.91 - UNSPECIFIED ATRIAL FIBRILLATION (4) HTN (hypertension) Code(s): I10 - ESSENTIAL (PRIMARY) HYPERTENSION (5) Congestive heart failure Code(s): I50.9 - HEART FAILURE, UNSPECIFIED Qualifiers: Qualified Code(s): I50.23 - Acute on chronic systolic (congestive) heart failure (6) Diabetes Code(s): E11.9 - TYPE 2 DIABETES MELLITUS WITHOUT COMPLICATIONS (7) End stage renal disease Code(s): N18.6 - END STAGE RENAL DISEASE (8) Anemia Code(s): D64.9 - ANEMIA, UNSPECIFIED Qualifiers: Qualified Code(s): D64.9 - Anemia, unspecified (9) HLD (hyperlipidemia) Code(s): E78.5 - HYPERLIPIDEMIA, UNSPECIFIED
[2016-05-24] MEDS: FUROSEMIDE 40 MG TABLET (FP) PO SCH ×2 (05:45→14:30)
[2016-05-24] MEDS: sitaGLIPtin PHOSPHATE 25 MG TABLET (FP) PO SCH (06:06)
[2016-05-24] MEDS: SEVELAMER CARBONATE 0.8 GM POWDER PACKET PO SCH ×3 (08:00→18:00)
[2016-05-24] MEDS: CEFTRIAXONE 50 ML IVPB SCH (09:49)
[2016-05-24] MEDS: ENOXAPARIN NA (PORCINE) 30 MG/0.3 ML DISP.SYRIN SQ SCH (09:49)
--- NOTE | 2016-05-24 10:45 | PN ---
Progress Note (short form) - Note Progress Note: Chief Complaint: foot wound, afib History of Present Illness: sob improving, able to lay flat now no cp, palpit, dizziness, loc ex cigs Current Medications Generic Name Dose Route Start Last Admin Trade Name Freq PRN Reason Stop Dose Admin Atorvastatin Calcium 10 mg 05/11/16 22:00 05/23/16 23:06 Lipitor - PO 10 mg HS MARY Administration Enoxaparin Sodium 30 mg 05/22/16 10:00 05/24/16 09:49 Lovenox - SQ Not Given DAILY MARY Epoetin Campos 4,000 units 05/24/16 12:00 Epogen - IVPUSH 05/24/16 12:01 ONCE ONE Fenofibric Acid 45 mg 05/12/16 10:00 05/23/16 13:20 Trilipix - PO Not Given DAILY MARY Furosemide 80 mg 05/13/16 06:00 05/24/16 05:45 Lasix - PO Not Given BIDLASIX MARY Ceftriaxone Sodium 50 mls @ 100 mls/hr 05/12/16 13:15 05/24/16 09:49 Rocephin 1gm Ivpb (Pre-Docked) IVPB 100 mls/hr DAILY MARY Administration Metoprolol Succinate 200 mg 05/20/16 22:00 05/23/16 23:07 Toprol Xl - PO 200 mg BID MARY Administration Morphine Sulfate 4 mg 05/22/16 01:09 05/24/16 06:05 Morphine Injection - IVPUSH 4 mg Q6H PRN Administration PAIN Sertraline HCl 50 mg 05/12/16 10:00 05/23/16 13:21 Zoloft - PO Not Given DAILY MARY Sevelamer Carbonate 1.6 gm 05/18/16 17:30 05/24/16 08:00 Renvela Powder Packet - PO Not Given TIDCM MARY Sitagliptin Phosphate 25 mg 05/12/16 07:00 05/24/16 06:06 Januvia - PO Not Given ACBK [facility] Sodium Thiosulfate 25 gm 05/19/16 13:00 05/22/16 13:53 Sodium Thiosulfate IV Not Given MoWeFr@1300 [facility] Vital Signs Temp 97.5 F L 05/24/16 10:00 Pulse 87 05/24/16 10:00 Resp 20 05/24/16 10:00 BP 111/61 05/24/16 10:00 Pulse Ox 96 05/23/16 22:00 Intake & Output 05/23/16 05/23/16 05/24/16 11:59 23:59 11:59 Intake Total 300 Balance 300 Weight 200 lb 6.4 oz 198 lb 4 oz Intake: Oral 300 Other: Voiding Method Toilet Toilet Weight Measurement Method Standing Scale Standing Scale Constitutional: Yes: No Distress, Calm Eyes: No: Sclera Icterus HENT: No: Nasal Congestion Cardiovascular: Yes: Pulse Irregular, S1, S2, Other (PMI non diplaced). No: JVD , Gallop, Murmur Respiratory: Yes: cta bl nl eff. No: Accessory Muscle Use, Rales, Wheezes Gastrointestinal: Yes: Normal Bowel Sounds, Soft. No: Tenderness Musculoskeletal: Yes: Other (No kyphosis) Extremities: No: Cold Edema: Yes (trace pretib) Integumentary: No: Jaundice diaphoresis Neurological: Yes: Alert, Oriented (x3) Psychiatric: No: Agitated Labs: Laboratory Last Values WBC 13.1 K/mm3 (4.0-10.0) H 05/23/16 13:00 RBC 3.79 M/mm3 (4.00-5.60) L 05/23/16 13:00 Hgb 10.6 GM/dL (11.7-16.9) L 05/23/16 13:00 Hct 33.9 % (35.4-49) L 05/23/16 13:00 MCV 89.6 fl (80-96) 05/23/16 13:00 MCHC 31.4 g/dl (32.0-35.9) L 05/23/16 13:00 RDW 15.8 % (11.9-15.9) 05/23/16 13:00 Plt Count 344 K/MM3 (134-434) 05/23/16 13:00 MPV 8.3 fl (7.5-11.1) 05/23/16 13:00 Neutrophils % 72.6 % (42.8-82.8) 05/22/16 07:00 Lymphocytes % 14.1 % (8-40) 05/22/16 07:00 Monocytes % 10.3 % (3.8-10.2) H D 05/22/16 07:00 Eosinophils % 1.7 % (0-4.5) 05/22/16 07:00 Basophils % 1.3 % (0-2.0) 05/22/16 07:00 Band Neutrophils 5.0 % (0-10) 05/21/16 05:35 Metamyelocytes 1 % (0-2) 05/21/16 05:35 Smudge Cells Few 05/21/16 05:35 Platelet Estimate Adequate (NORMAL) 05/21/16 05:35 Platelet Comment Mod large plts 05/21/16 05:35 Platelet Comment Few giant plts 05/21/16 05:35 Polychromasia 1+ 05/21/16 05:35 Hypochromic-Microcytic 1+ 05/21/16 05:35 Poikilocytosis 1+ 05/21/16 05:35 INR 1.59 (0.82-1.09) H 05/11/16 13:20 Sodium 139 mmol/L (136-145) 05/23/16 13:00 Potassium 4.0 mmol/L (3.5-5.1) 05/23/16 13:00 Chloride 97 mmol/L (98-107) L 05/23/16 13:00 Carbon Dioxide 31 mmol/L (21-32) 05/23/16 13:00 Anion Gap 11 (8-16) 05/23/16 13:00 BUN 47 mg/dL (7-18) H D 05/23/16 13:00 Creatinine 5.5 mg/dL (0.7-1.3) H 05/23/16 13:00 Creat Clearance w eGFR 9.05 (>60) 05/22/16 07:00 POC Glucometer 78 UNITS (()) 05/24/16 06:05 Random Glucose 83 mg/dL (74-106) 05/23/16 13:00 Calcium 9.2 mg/dL (8.5-10.1) 05/23/16 13:00 Phosphorus 5.4 mg/dL (2.5-4.9) H 05/23/16 13:00 Magnesium 2.0 mg/dL (1.8-2.4) 05/21/16 05:35 Total Bilirubin 0.4 mg/dL (0.2-1.0) 05/22/16 07:00 AST 18 U/L (15-37) 05/22/16 07:00 ALT 13 U/L (12-78) D 05/22/16 07:00 Alkaline Phosphatase 60 U/L (45-117) 05/22/16 07:00 Creatine Kinase 44 IU/L (39-308) 05/12/16 05:50 Troponin I 0.03 ng/ml (0.00-0.05) D 05/12/16 05:50 B-Natriuretic Peptide 63697.58 pg/ml (5-125) H 05/11/16 13:20 Total Protein 6.7 g/dl (6.4-8.2) 05/22/16 07:00 Albumin 2.8 g/dl (3.4-5.0) L 05/22/16 07:00 Prostate Specific Ag 1.00 ng/ml (0.0-4.0) 05/18/16 06:25 Vancomycin Trough 19.835 ug/ml (5.0-10.0) H* D 05/15/16 05:35 Random Vancomycin 11.717 ug/ml 05/23/16 13:30 Hepatitis A Ab Total Negative (Negative) 05/13/16 12:20 Hep Bs Antigen Negative (Negative) 05/13/16 12:20 Hep Bs Antibody Non reactive (.) 05/13/16 12:20 Hep B Core Total Ab Negative (Negative) 05/13/16 12:20 Hepatitis C Antibody 0.2 s/co ratio (0.0-0.9) 05/13/16 12:20 Blood Type O POSITIVE 05/23/16 11:47 Antibody Screen Negative 05/23/16 11:47 tele: often noncompliant with tele, when on here it has shown AFL, rate controlled echo 09/2015: mod lve, mild-mod dec lvef, global HK, nl rv, mod-sev mr, sev tr, marixa, nl rvsp echo 03/2016: mild lve, mod dec lvef, ant HK, nl rv size, marixa, mild mr, mod tr, rvsp 40-50 a/p: 60 m hx htn, hld, dm, cabg (04/2006), ESRD, afib/flutter, syst chf, esrd on HD, here with infected foot wound chronic syst chf: -significant sob with little activity and orthopnea earlier this admit -attempting incr frequency of HD/UF here, per d/w dr mcghee -cont po lasix 80 bid and HD for vol management (started 05/12) -recent echo 03/2016 here similar to 09/2015, shows mod reduced lvef--? etiology ( ? if EF already down at time of dx of CAD and CABG) -need accurate assessment of AF rate control (r/o tachy-CMP) and burden ( paroxysmal) as outpt -has been getting near-daily HD/UF -05/20: overall wt trend here 213-->202 -however remains with severe orthopnea -doubt copd sx (pt given trial of nebs and says was no better) -CXR without evidence of pulm congestion, however suspect he is still hiding volume and filling pressures are up -d/w'd renal: plan to continue frequent UF until objective evidence of vol depletion -05/21: s/p UF yesterday; wt down 202 to 201; -05/22: no UF yesterday; wt up 201 to 204 this am--now 199 s/p UF today -05/23-: Orthopnea improved, wt down. con't home regimen of 80 mg po bid and volume management per renal/HD. -needs outpt PFTs/pulm eval (continuing high dose BB for now, no wheezing) -holding diovan 80 qd, hydralazine 25 bid, and isordil 10 qd given low bp possibly from sepsis, and low bp's at HD at home which may limit attempts at aggressive fluid removal here -reassess later once volume status better, if bp stable afib/flutter: -initially not well controlled--HRs to 140s at times. (cannot use dilt with chronic syst chf, low dose digoxin (HD pt) hi risk toxicity. Amio or consider AVN ablation/PPM if cannot adequately control HRs) -frequent self-d/c of youth nutritional monitor limits assessment -? if tachy contributing to LV dysfunction and/or hi intracardiac filling pressures -05/20 incr'd toprol 200 bid (prefer not to hold it on HD days, if bp can tolerate) -05/22-05/24: Overall rate controlled, cont same -if remains with frequent tachy, can try change metoprolol to propranolol -avoiding dig given HD pt with risks of fluctuating levels -cont eliquis 2.5 bid (presyncopal consistently following eliquis 5mg doses at home--???)--hope to incr later once chf status and bp drops from HD are stabilized ESRD -cont hd per renal -fluid removal as disc'd above htn: -bp's on low side here, possibly due to infection/cellulitis so holding diovan, nitrate, hydralazine for now, resume when bp stable -LH/presyncope episodes at home, ? (highly unusual) med effect (eliquis 5mg)-- suspect more likely related to hi chf med burden with intravasc fluid shifts from HD hld: -cont home statin cad s/p cabg: -ce's neg x2, EKG without ischemic changes here, no suspected angina sx's -recent echo w/o sig change from prior -cont statin, bb, ac le cellulitis, possible gangrene, PAD: -plans per vascular surgery, ID -planned for LE angio today -cont to hold eliquis for now
[2016-05-24] MEDS: FENOFIBRIC ACID 45 MG CAP PO SCH (11:18)
[2016-05-24] MEDS: METOPROLOL SUCCINATE 100 MG TAB.SR.24H (FP) PO SCH ×2 (11:18→22:28)
[2016-05-24] MEDS: SERTRALINE HCL 50 MG TABLET (FP) PO SCH (11:19)
--- NOTE | 2016-05-24 11:40 | PN ---
Progress Note, Physician History of Present Illness: pulmonary alert,nad,laying flat in bed ,-dyspnea - Current Medication List Current Medications: Active Medications Atorvastatin Calcium (Lipitor -) 10 mg PO HS [facility] Last Admin: 05/23/16 23:06 Dose: 10 mg Enoxaparin Sodium (Lovenox -) 30 mg SQ DAILY [facility] Last Admin: 05/24/16 09:49 Dose: Not Given Epoetin Campos (Epogen -) 4,000 units IVPUSH ONCE ONE Stop: 05/24/16 12:01 Fenofibric Acid (Trilipix -) 45 mg PO DAILY [facility] Last Admin: 05/24/16 11:18 Dose: Not Given Furosemide (Lasix -) 80 mg PO BIDLASIX [facility] Last Admin: 05/24/16 05:45 Dose: Not Given Ceftriaxone Sodium (Rocephin 1gm Ivpb (Pre-Docked)) 50 mls @ 100 mls/hr IVPB DAILY [facility] Last Admin: 05/24/16 09:49 Dose: 100 mls/hr Metoprolol Succinate (Toprol Xl -) 200 mg PO BID [facility] Last Admin: 05/24/16 11:18 Dose: Not Given Morphine Sulfate (Morphine Injection -) 4 mg IVPUSH Q6H PRN PRN Reason: PAIN Last Admin: 05/24/16 06:05 Dose: 4 mg Sertraline HCl (Zoloft -) 50 mg PO DAILY [facility] Last Admin: 05/24/16 11:19 Dose: Not Given Sevelamer Carbonate (Renvela Powder Packet -) 1.6 gm PO TIDCM [facility] [place] Last Admin: 05/24/16 11:19 Dose: Not Given Sitagliptin Phosphate (Januvia -) 25 mg PO ACBK [facility] [place] Last Admin: 05/24/16 06:06 Dose: Not Given Sodium Thiosulfate (Sodium Thiosulfate) 25 gm IV MoWeFr@1300 [facility] Last Admin: 05/22/16 13:53 Dose: Not Given - Objective Vital Signs: Vital Signs Temperature 97.5 F L 05/24/16 10:00 Pulse Rate 87 05/24/16 10:00 Respiratory Rate 20 05/24/16 10:00 Blood Pressure 111/61 05/24/16 10:00 O2 Sat by Pulse Oximetry (%) 95 05/24/16 09:00 Constitutional: Yes: Well Nourished, Calm Eyes: Yes: WNL HENT: Yes: WNL Neck: Yes: WNL Cardiovascular: Yes: Pulse Irregular, S1, S2 Respiratory: Yes: Diminished Gastrointestinal: Yes: WNL Extremities: Yes: WNL Edema: Yes Labs: CBC, BMP 05/23/16 13:00 05/23/16 13:00 INR, PTT INR 1.59 (0.82-1.09) H 05/11/16 13:20 Problem List - Problems (1) Afib Code(s): I48.91 - UNSPECIFIED ATRIAL FIBRILLATION (3) CHF exacerbation Code(s): I50.9 - HEART FAILURE, UNSPECIFIED Qualifiers: Congestive heart failure type: unspecified congestive heart failure type Qualified Code(s): I50.9 - Heart failure, unspecified (4) Cellulitis and abscess of foot Code(s): L03.119 - CELLULITIS OF UNSPECIFIED PART OF LIMB L02.619 - CUTANEOUS ABSCESS OF UNSPECIFIED FOOT (5) Microangiopathy, 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 (6) Anemia Code(s): D64.9 - ANEMIA, UNSPECIFIED Qualifiers: Anemia type: unspecified type Qualified Code(s): D64.9 - Anemia, unspecified (7) Atrial fibrillation with RVR Code(s): I48.91 - UNSPECIFIED ATRIAL FIBRILLATION (8) Bilateral shoulder pain Code(s): M25.511 - PAIN IN RIGHT SHOULDER M25.512 - PAIN IN LEFT SHOULDER (9) Cellulitis of foot Code(s): L03.119 - CELLULITIS OF UNSPECIFIED PART OF LIMB (10) Dyspnea on exertion Code(s): R06.09 - OTHER FORMS OF DYSPNEA (11) HTN (hypertension) Code(s): I10 - ESSENTIAL (PRIMARY) HYPERTENSION (12) Atrial flutter Code(s): I48.92 - UNSPECIFIED ATRIAL FLUTTER (13) CAD, multiple vessel Code(s): I25.10 - ATHSCL HEART DISEASE OF [place] CORONARY ARTERY W/O ANG PCTRS (14) Congestive heart failure Code(s): I50.9 - HEART FAILURE, UNSPECIFIED Qualifiers: Congestive heart failure type: systolic Congestive heart failure chronicity: acute on chronic Qualified Code(s): I50.23 - Acute on chronic systolic (congestive) heart failure (15) Diabetes Code(s): E11.9 - TYPE 2 DIABETES MELLITUS WITHOUT COMPLICATIONS (16) End stage renal disease Code(s): N18.6 - END STAGE RENAL DISEASE Assessment/Plan IMP DYSPNEA MULTIPLE FACTORS,CHF,COPD improved PULMONARY HTN ASHD S/P CABG ESRD ON HD AFIB HTN DM PVD CELLULITIS LIKELY OSAS PLAN HD PER RENAL CONTINUE ANTIBIOTICS PER ID INHALED BRONCHODILATORS SUPPLEMENTAL O2 CHECK O2 SAT AT REST AND POST EXERCISE ON RA PFTS OUTPATIENT SLEEP STUDIES OUTPATIENT LLE ANGIOGRAM/ANGIOPLASY TODAY DR LUNA
[2016-05-24] MEDS ORDERED: PT OWN MED DRAWER 7, Y5N ONE (12:36)
--- NOTE | 2016-05-24 15:38 | PN ---
Progress Note (short form) - Note Progress Note: Renal Follow up for ESRD Pt seen and examined at the bedside no acute complaints sob and orthopnea are improved for angiogram this afternoon Vital Signs Temperature 98.7 F 05/24/16 15:10 Pulse Rate 89 05/24/16 15:10 Respiratory Rate 20 05/24/16 15:10 Blood Pressure 97/50 05/24/16 15:10 O2 Sat by Pulse Oximetry (%) 95 05/24/16 09:00 Intake & Output 05/21/16 05/22/16 05/23/16 05/24/16 23:59 23:59 23:59 23:59 Intake Total 690 940 300 Balance 690 940 300 Weight 201 lb 204 lb 12.8 oz 200 lb 6.4 oz 198 lb 4 oz Gen: awake and alert CVS: RRR, No M/R Lungs: CTA, no rales or wheeze Abd: soft NT/ND Ext: Trace edema in LE. Heels and foot in dressing CBC, BMP 05/23/16 13:00 05/23/16 13:00 Laboratory Tests 05/23/16 13:00 Calcium 9.2 Phosphorus 5.4 H Current Medications Atorvastatin Calcium (Lipitor -) 10 mg PO HS [facility] Last Admin: 05/23/16 23:06 Dose: 10 mg Enoxaparin Sodium (Lovenox -) 30 mg SQ DAILY [facility] Last Admin: 05/24/16 09:49 Dose: Not Given Epoetin Campos (Epogen -) 4,000 units IVPUSH ONCE ONE Stop: 05/24/16 12:01 Fenofibric Acid (Trilipix -) 45 mg PO DAILY [facility] Last Admin: 05/24/16 11:18 Dose: Not Given Furosemide (Lasix -) 80 mg PO BIDLASIX [facility] Last Admin: 05/24/16 14:30 Dose: Not Given Ceftriaxone Sodium (Rocephin 1gm Ivpb (Pre-Docked)) 50 mls @ 100 mls/hr IVPB DAILY [facility] Last Admin: 05/24/16 09:49 Dose: 100 mls/hr Metoprolol Succinate (Toprol Xl -) 200 mg PO BID [facility] Last Admin: 05/24/16 11:18 Dose: Not Given Morphine Sulfate (Morphine Injection -) 4 mg IVPUSH Q6H PRN PRN Reason: PAIN Last Admin: 05/24/16 06:05 Dose: 4 mg Sertraline HCl (Zoloft -) 50 mg PO DAILY [facility] Last Admin: 05/24/16 11:19 Dose: Not Given Sevelamer Carbonate (Renvela Powder Packet -) 1.6 gm PO TIDCM [facility] Last Admin: 05/24/16 11:19 Dose: Not Given Sitagliptin Phosphate (Januvia -) 25 mg PO ACBK [facility] Last Admin: 05/24/16 06:06 Dose: Not Given Sodium Thiosulfate (Sodium Thiosulfate) 25 gm IV MoWeFr@1300 [facility] Last Admin: 05/22/16 13:53 Dose: Not Given A/P 60 year old gentleman with PMhx of ESRD (recently started on dialysis), CAD s/p CABG, DM Type 2, Depression, CHF who with LE weakness s/p recent fall and wound on right foot. 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
[2016-05-24] MEDS ORDERED: LIDOCAINE HCL 1%, 10 MG/ML (20ML VIAL) ONE ×2 (17:24→17:25)
[2016-05-24] MEDS ORDERED: HEPARIN NA (PORCINE) 5,000 UNITS/ML 1ML VIAL ONE (17:24)
[2016-05-24 19:45] LABS: MCH 28.5 pg (25.7-33.7); MCHC 32.6 g/dl (32.0-35.9); MEAN CELL VOLUME 87.6 fl (80-96); MEAN PLT VOLUME 8.5 fl (7.5-11.1); PLATELET COUNT 371 K/MM3 (134-434); RDW 15.7 % (11.9-15.9); WHITE BLOOD COUNT 12.7 K/mm3 (4.0-10.0)
[2016-05-24] MEDS: SODIUM THIOSULFATE 12.5 GM/50 ML VIAL IV SCH (19:59)
[2016-05-24 20:28] LABS: CALCIUM 8.7 mg/dL (8.5-10.1); CREATININE 6.3 mg/dL (0.7-1.3); PHOSPHOROUS 6.9 mg/dL (2.5-4.9)
[2016-05-24] MEDS ORDERED: EPOETIN ALFA 2,000 UNITS/1 ML VIAL IVPUSH ONE (21:00)
[2016-05-24] MEDS: ATORVASTATIN CA 10 MG TABLET (FP) PO SCH (22:29)
--- NOTE | 2016-05-24 22:47 | PN ---
Progress Note, Physician History of Present Illness: No new complaints - Current Medication List Current Medications: Active Medications Atorvastatin Calcium (Lipitor -) 10 mg PO HS [facility] Last Admin: 05/24/16 22:29 Dose: Not Given Enoxaparin Sodium (Lovenox -) 30 mg SQ DAILY [facility] Last Admin: 05/24/16 09:49 Dose: Not Given Fenofibric Acid (Trilipix -) 45 mg PO DAILY [facility] Last Admin: 05/24/16 11:18 Dose: Not Given Furosemide (Lasix -) 80 mg PO BIDLASIX [facility] Last Admin: 05/24/16 14:30 Dose: Not Given Ceftriaxone Sodium (Rocephin 1gm Ivpb (Pre-Docked)) 50 mls @ 100 mls/hr IVPB DAILY [facility] Last Admin: 05/24/16 09:49 Dose: 100 mls/hr Metoprolol Succinate (Toprol Xl -) 200 mg PO BID [facility] Last Admin: 05/24/16 22:28 Dose: Not Given Morphine Sulfate (Morphine Injection -) 4 mg IVPUSH Q6H PRN PRN Reason: PAIN Last Admin: 05/24/16 22:35 Dose: 4 mg Sertraline HCl (Zoloft -) 50 mg PO DAILY [facility] Last Admin: 05/24/16 11:19 Dose: Not Given Sevelamer Carbonate (Renvela Powder Packet -) 1.6 gm PO TIDCM [facility] Last Admin: 05/24/16 18:00 Dose: Not Given Sitagliptin Phosphate (Januvia -) 25 mg PO ACBK [facility] Last Admin: 05/24/16 06:06 Dose: Not Given Sodium Thiosulfate (Sodium Thiosulfate) 25 gm IV [email or web address] [facility] Last Admin: 05/24/16 19:59 Dose: 25 gm - Objective Vital Signs: Vital Signs Temperature 97.6 F 05/24/16 18:40 Pulse Rate 88 05/24/16 21:00 Respiratory Rate 18 05/24/16 21:00 Blood Pressure 110/51 05/24/16 21:00 O2 Sat by Pulse Oximetry (%) 95 05/24/16 09:00 Cardiovascular: Yes: WNL, Regular Rate and Rhythm Respiratory: Yes: WNL, Regular, CTA Bilaterally Gastrointestinal: Yes: WNL, Normal Bowel Sounds, Soft Labs: CBC, BMP 05/24/16 19:00 05/24/16 19:00 INR, PTT INR 1.59 (0.82-1.09) H 05/11/16 13:20 Problem List - Problems (1) Cellulitis of foot Code(s): L03.119 - CELLULITIS OF UNSPECIFIED PART OF LIMB (2) Dyspnea Code(s): R06.00 - DYSPNEA, UNSPECIFIED (3) Afib Code(s): I48.91 - UNSPECIFIED ATRIAL FIBRILLATION (4) HTN (hypertension) Code(s): I10 - ESSENTIAL (PRIMARY) HYPERTENSION (5) Congestive heart failure Code(s): I50.9 - HEART FAILURE, UNSPECIFIED Qualifiers: Qualified Code(s): I50.23 - Acute on chronic systolic (congestive) heart failure (6) Diabetes Code(s): E11.9 - TYPE 2 DIABETES MELLITUS WITHOUT COMPLICATIONS (7) End stage renal disease Code(s): N18.6 - END STAGE RENAL DISEASE (8) Anemia Code(s): D64.9 - ANEMIA, UNSPECIFIED Qualifiers: Qualified Code(s): D64.9 - Anemia, unspecified (9) HLD (hyperlipidemia) Code(s): E78.5 - HYPERLIPIDEMIA, UNSPECIFIED
[2016-05-25] MEDS ORDERED: morphine CARPU-JECT 4 MG/1 ML DISP.SYRIN IVPUSH PRN (04:12)
[2016-05-25] MEDS: morphine CARPU-JECT 2 MG/1 ML DISP.SYRIN IVPUSH PRN ×3 (04:22→20:19)
[2016-05-25] MEDS: sitaGLIPtin PHOSPHATE 25 MG TABLET (FP) PO SCH (06:20)
[2016-05-25] MEDS: FUROSEMIDE 40 MG TABLET (FP) PO SCH ×2 (06:20→17:30)
[2016-05-25] MEDS ORDERED: PT OWN MED DRAWER 7, Y5N ONE ×3 (07:47→18:04)
[2016-05-25] MEDS: SEVELAMER CARBONATE 0.8 GM POWDER PACKET PO SCH ×3 (08:10→17:28)
--- NOTE | 2016-05-25 08:36 | PN ---
Progress Note (short form) - Note Progress Note: Angiogram procedure was cancelled yesterday due to an emergency at another hospital. I will reschedule for 05/26 at 1 PM Patient aware.
[2016-05-25 10:27] LABS: MCH 28.2 pg (25.7-33.7); MEAN CELL VOLUME 87.9 fl (80-96); MEAN PLT VOLUME 8.5 fl (7.5-11.1); PLATELET COUNT 309 K/MM3 (134-434); RDW 15.8 % (11.9-15.9); WHITE BLOOD COUNT 12.7 K/mm3 (4.0-10.0)
--- NOTE | 2016-05-25 10:34 | PN ---
Progress Note (short form) - Note Progress Note: Chief Complaint: foot wound, afib History of Present Illness: sob improving, able to lay flat now no cp, palpit, dizziness, loc ex cigs Current Medications Generic Name Dose Route Start Last Admin Trade Name Freq PRN Reason Stop Dose Admin Atorvastatin Calcium 10 mg 05/11/16 22:00 05/24/16 22:29 Lipitor - PO Not Given HS MARY Enoxaparin Sodium 30 mg 05/22/16 10:00 05/24/16 09:49 Lovenox - SQ Not Given DAILY MARY Fenofibric Acid 45 mg 05/12/16 10:00 05/24/16 11:18 Trilipix - PO Not Given DAILY MARY Furosemide 80 mg 05/13/16 06:00 05/25/16 06:20 Lasix - PO 80 mg BIDLASIX MARY Administration Ceftriaxone Sodium 50 mls @ 100 mls/hr 05/12/16 13:15 05/24/16 09:49 Rocephin 1gm Ivpb (Pre-Docked) IVPB 100 mls/hr DAILY MARY Administration Metoprolol Succinate 200 mg 05/20/16 22:00 05/24/16 22:28 Toprol Xl - PO Not Given BID MARY Morphine Sulfate 4 mg 05/25/16 04:15 05/25/16 04:22 Morphine Injection - IVPUSH 4 mg Q6H PRN Administration PAIN Sertraline HCl 50 mg 05/12/16 10:00 05/24/16 11:19 Zoloft - PO Not Given DAILY MARY Sevelamer Carbonate 1.6 gm 05/18/16 17:30 05/25/16 08:10 Renvela Powder Packet - PO 1.6 gm TIDCM MARY Administration Sitagliptin Phosphate 25 mg 05/12/16 07:00 05/25/16 06:20 Januvia - PO 25 mg ACBK MARY Administration Sodium Thiosulfate 25 gm 05/19/16 13:00 05/24/16 19:59 Sodium Thiosulfate IV 25 gm MoWeFr@1300 MARY Administration Vital Signs Period Temp Pulse Resp BP Sys/Ledbetter Pulse Ox Last 24 Hr 97.3 F-98.8 F 55-100 18-20 91-123/44-80 99-100 Constitutional: Yes: No Distress, Calm Eyes: No: Sclera Icterus HENT: No: Nasal Congestion Cardiovascular: Yes: Pulse Irregular, S1, S2, Other (PMI non diplaced). No: JVD , Gallop, Murmur Respiratory: Yes: cta bl nl eff. No: Accessory Muscle Use, Rales, Wheezes Gastrointestinal: Yes: Normal Bowel Sounds, Soft. No: Tenderness Musculoskeletal: Yes: Other (No kyphosis) Extremities: No: Cold Edema: Yes (trace pretib) Integumentary: No: Jaundice diaphoresis Neurological: Yes: Alert, Oriented (x3) Psychiatric: No: Agitated Labs: CBC, BMP 05/25/16 09:30 echo 09/2015: mod lve, mild-mod dec lvef, global HK, nl rv, mod-sev mr, sev tr, marixa, nl rvsp echo 03/2016: mild lve, mod dec lvef, ant HK, nl rv size, marixa, mild mr, mod tr, rvsp 40-50 a/p: 60 m hx htn, hld, dm, cabg (04/2006), ESRD, afib/flutter, syst chf, esrd on HD, here with infected foot wound chronic syst chf: -significant sob with little activity and orthopnea earlier this admit -attempting incr frequency of HD/UF here, per d/w dr mcghee -cont po lasix 80 bid and HD for vol management (started 05/12) -recent echo 03/2016 here similar to 09/2015, shows mod reduced lvef--? etiology ( ? if EF already down at time of dx of CAD and CABG) -need accurate assessment of AF rate control (r/o tachy-CMP) and burden ( paroxysmal) as outpt -has been getting near-daily HD/UF -05/20: overall wt trend here 213-->202 -however remains with severe orthopnea -doubt copd sx (pt given trial of nebs and says was no better) -CXR without evidence of pulm congestion, however suspect he is still hiding volume and filling pressures are up -d/w'd renal: plan to continue frequent UF until objective evidence of vol depletion -05/21: s/p UF yesterday; wt down 202 to 201; -05/22: no UF yesterday; wt up 201 to 204 this am--now 199 s/p UF today -05/23-: Orthopnea improved, wt down. con't home regimen of 80 mg po bid and volume management per renal/HD. -needs outpt PFTs/pulm eval (continuing high dose BB for now, no wheezing) -holding diovan 80 qd, hydralazine 25 bid, and isordil 10 qd given low bp possibly from sepsis, and low bp's at HD at home which may limit attempts at aggressive fluid removal here -reassess later once volume status better, if bp stable afib/flutter: -initially not well controlled--HRs to 140s at times. (cannot use dilt with chronic syst chf, low dose digoxin (HD pt) hi risk toxicity. 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 if tachy contributing to LV dysfunction and/or hi intracardiac filling pressures -05/20 incr'd toprol 200 bid (prefer not to hold it on HD days, if bp can tolerate) -05/22-05/25: Overall rate controlled, cont same -if remains with frequent tachy, can try change metoprolol to propranolol -avoiding dig given HD pt with risks of fluctuating levels -cont eliquis 2.5 bid (presyncopal consistently following eliquis 5mg doses at home--???)--hope to incr later once chf status and bp drops from HD are stabilized ESRD -cont hd per renal -fluid removal as disc'd above htn: -bp's on low side here, possibly due to infection/cellulitis so holding diovan, nitrate, hydralazine for now, resume when bp stable -LH/presyncope episodes at home, ? (highly unusual) med effect (eliquis 5mg)-- suspect more likely related to hi chf med burden with intravasc fluid shifts from HD hld: -cont home statin cad s/p cabg: -ce's neg x2, EKG without ischemic changes here, no suspected angina sx's -recent echo w/o sig change from prior -cont statin, bb, ac le cellulitis, possible gangrene, PAD: -plans per vascular surgery, ID -planned for LE angio tomorrow -cont to hold eliquis for now
[2016-05-25 10:59] LABS: CALCIUM 8.5 mg/dL (8.5-10.1); CREATININE 6.2 mg/dL (0.7-1.3); PHOSPHOROUS 6.4 mg/dL (2.5-4.9)
--- NOTE | 2016-05-25 11:15 | PN ---
Progress Note (short form) - Note Progress Note: Renal Follow up for ESRD Pt seen and examined during dialysis BP stable, UF goal ~2L pt has some dizziness no sob or chest pain continues to have pain in the foot and thighs s/p dialysis yesterday with sodium thiosulfate Vital Signs Temperature 97.7 F 05/25/16 09:25 Pulse Rate 59 L 05/25/16 11:00 Respiratory Rate 18 05/25/16 11:00 Blood Pressure 100/47 05/25/16 11:00 O2 Sat by Pulse Oximetry (%) 99 05/25/16 06:35 Intake & Output 05/22/16 05/23/16 05/24/16 05/25/16 23:59 23:59 23:59 23:59 Intake Total 940 300 570 270 Balance 940 300 570 270 Weight 204 lb 12.8 oz 200 lb 6.4 oz 198 lb 4 oz 198 lb 6 oz Gen: awake and alert CVS: RRR, No M/R Lungs: CTA, no rales or wheeze Abd: soft NT/ND Ext: Trace edema in LE. Heels and foot in dressing CBC, BMP 05/25/16 09:30 05/25/16 09:30 Laboratory Tests 05/25/16 09:30 Calcium 8.5 Phosphorus 6.4 H Current Medications Atorvastatin Calcium (Lipitor -) 10 mg PO HS [facility] Last Admin: 05/24/16 22:29 Dose: Not Given Enoxaparin Sodium (Lovenox -) 30 mg SQ DAILY [facility] Last Admin: 05/24/16 09:49 Dose: Not Given Fenofibric Acid (Trilipix -) 45 mg PO DAILY [facility] Last Admin: 05/24/16 11:18 Dose: Not Given Furosemide (Lasix -) 80 mg PO BIDLASIX [facility] Last Admin: 05/25/16 06:20 Dose: 80 mg Ceftriaxone Sodium (Rocephin 1gm Ivpb (Pre-Docked)) 50 mls @ 100 mls/hr IVPB DAILY [facility] Last Admin: 05/24/16 09:49 Dose: 100 mls/hr Metoprolol Succinate (Toprol Xl -) 200 mg PO BID [facility] Last Admin: 05/24/16 22:28 Dose: Not Given Morphine Sulfate (Morphine Injection -) 4 mg IVPUSH Q6H PRN PRN Reason: PAIN Last Admin: 05/25/16 04:22 Dose: 4 mg Sertraline HCl (Zoloft -) 50 mg PO DAILY [facility] Last Admin: 05/24/16 11:19 Dose: Not Given Sevelamer Carbonate (Renvela Powder Packet -) 1.6 gm PO TIDCM [facility] Last Admin: 05/25/16 08:10 Dose: 1.6 gm Sitagliptin Phosphate (Januvia -) 25 mg PO ACBK [facility] Last Admin: 05/25/16 06:20 Dose: 25 mg Sodium Thiosulfate (Sodium Thiosulfate) 25 gm IV MoWeFr@1300 [facility] Last Admin: 05/24/16 19:59 Dose: 25 gm A/P 60 year old gentleman with PMhx of ESRD (recently started on dialysis), CAD s/p CABG, DM Type 2, Depression, CHF who with LE weakness s/p recent fall and wound on right foot. 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
[2016-05-25] MEDS ORDERED: VANCOMYCIN 1 GRAM (PRE-DOCKED) 250 ML IVPB ONE (12:00)
[2016-05-25] MEDS: METOPROLOL SUCCINATE 100 MG TAB.SR.24H (FP) PO SCH ×2 (13:30→21:25)
[2016-05-25] MEDS: SERTRALINE HCL 50 MG TABLET (FP) PO SCH (13:30)
[2016-05-25] MEDS: CEFTRIAXONE 50 ML IVPB SCH (13:30)
[2016-05-25] MEDS: ENOXAPARIN NA (PORCINE) 30 MG/0.3 ML DISP.SYRIN SQ SCH (13:46)
[2016-05-25 14:02] LABS: CREATININE 2.3 mg/dL (0.7-1.3)
[2016-05-25] MEDS: FENOFIBRIC ACID 45 MG CAP PO SCH (17:30)
[2016-05-25] MEDS: ATORVASTATIN CA 10 MG TABLET (FP) PO SCH (21:25)
--- NOTE | 2016-05-25 23:39 | PN ---
Progress Note, Physician History of Present Illness: No new complaints - Current Medication List Current Medications: Active Medications Atorvastatin Calcium (Lipitor -) 10 mg PO HS [facility] [place] Last Admin: 05/25/16 21:25 Dose: Not Given Enoxaparin Sodium (Lovenox -) 30 mg SQ DAILY [facility] [place] Last Admin: 05/25/16 13:46 Dose: Not Given Fenofibric Acid (Trilipix -) 45 mg PO DAILY [facility] [place] Last Admin: 05/25/16 17:30 Dose: 45 mg Furosemide (Lasix -) 80 mg PO BIDLASIX [facility] [place] Last Admin: 05/25/16 17:30 Dose: Not Given Ceftriaxone Sodium (Rocephin 1gm Ivpb (Pre-Docked)) 50 mls @ 100 mls/hr IVPB DAILY [facility] [place] Last Admin: 05/25/16 13:30 Dose: 100 mls/hr Metoprolol Succinate (Toprol Xl -) 200 mg PO BID [facility] [place] Last Admin: 05/25/16 21:25 Dose: Not Given Morphine Sulfate (Morphine Injection -) 4 mg IVPUSH Q6H PRN PRN Reason: PAIN Last Admin: 05/25/16 20:19 Dose: 4 mg Sertraline HCl (Zoloft -) 50 mg PO DAILY [facility] [place] Last Admin: 05/25/16 13:30 Dose: 50 mg Sevelamer Carbonate (Renvela Powder Packet -) 2.4 gm PO TIDCM [facility] [place] Last Admin: 05/25/16 17:28 Dose: 2.4 gm Sitagliptin Phosphate (Januvia -) 25 mg PO ACBK [facility] [place] Last Admin: 05/25/16 06:20 Dose: 25 mg Sodium Thiosulfate (Sodium Thiosulfate) 25 gm IV MoWeFr@1300 [facility] [place] Last Admin: 05/24/16 19:59 Dose: 25 gm - Objective Vital Signs: Vital Signs Temperature 97.8 F 05/25/16 15:37 Pulse Rate 68 05/25/16 18:00 Respiratory Rate 20 05/25/16 18:00 Blood Pressure 97/44 05/25/16 18:00 O2 Sat by Pulse Oximetry (%) 99 05/25/16 09:00 Cardiovascular: Yes: WNL, Regular Rate and Rhythm Respiratory: Yes: WNL, Regular, CTA Bilaterally Gastrointestinal: Yes: WNL, Normal Bowel Sounds, Soft Labs: CBC, BMP 05/25/16 09:30 05/25/16 12:30 INR, PTT INR 1.59 (0.82-1.09) H 05/11/16 13:20 Problem List - Problems (1) Cellulitis of foot Code(s): L03.119 - CELLULITIS OF UNSPECIFIED PART OF LIMB (2) Dyspnea Code(s): R06.00 - DYSPNEA, UNSPECIFIED (3) Afib Code(s): I48.91 - UNSPECIFIED ATRIAL FIBRILLATION (4) HTN (hypertension) Code(s): I10 - ESSENTIAL (PRIMARY) HYPERTENSION (5) Congestive heart failure Code(s): I50.9 - HEART FAILURE, UNSPECIFIED Qualifiers: Qualified Code(s): I50.23 - Acute on chronic systolic (congestive) heart failure (6) Diabetes Code(s): E11.9 - TYPE 2 DIABETES MELLITUS WITHOUT COMPLICATIONS (7) End stage renal disease Code(s): N18.6 - END STAGE RENAL DISEASE (8) Anemia Code(s): D64.9 - ANEMIA, UNSPECIFIED Qualifiers: Qualified Code(s): D64.9 - Anemia, unspecified (9) HLD (hyperlipidemia) Code(s): E78.5 - HYPERLIPIDEMIA, UNSPECIFIED
[2016-05-26] MEDS: morphine CARPU-JECT 2 MG/1 ML DISP.SYRIN IVPUSH PRN ×3 (02:26→17:31)
[2016-05-26] MEDS: FUROSEMIDE 40 MG TABLET (FP) PO SCH (06:23)
[2016-05-26 10:11] LABS: MCH 28.2 pg (25.7-33.7); MCHC 31.5 g/dl (32.0-35.9); MEAN CELL VOLUME 89.4 fl (80-96); MEAN PLT VOLUME 8.4 fl (7.5-11.1); PLATELET COUNT 248 K/MM3 (134-434); WHITE BLOOD COUNT 11.7 K/mm3 (4.0-10.0)
[2016-05-26 10:36] LABS: CALCIUM 9.1 mg/dL (8.5-10.1); CREATININE 5.6 mg/dL (0.7-1.3); PHOSPHOROUS 5.4 mg/dL (2.5-4.9)
--- NOTE | 2016-05-26 10:43 | PN ---
Progress Note (short form) - Note Progress Note: Chief Complaint: foot wound, afib History of Present Illness: sob improved, no orthopnea no cp, palpit, dizziness, loc ex cigs Current Medications Generic Name Dose Route Start Last Admin Trade Name Freq PRN Reason Stop Dose Admin Atorvastatin Calcium 10 mg 05/11/16 22:00 05/25/16 21:25 Lipitor - PO Not Given HS MARY Enoxaparin Sodium 30 mg 05/22/16 10:00 05/25/16 13:46 Lovenox - SQ Not Given DAILY MARY Fenofibric Acid 45 mg 05/12/16 10:00 05/25/16 17:30 Trilipix - PO 45 mg DAILY MARY Administration Furosemide 80 mg 05/13/16 06:00 05/26/16 06:23 Lasix - PO 80 mg BIDLASIX MARY Administration Ceftriaxone Sodium 50 mls @ 100 mls/hr 05/12/16 13:15 05/25/16 13:30 Rocephin 1gm Ivpb (Pre-Docked) IVPB 100 mls/hr DAILY MARY Administration Metoprolol Succinate 200 mg 05/20/16 22:00 05/25/16 21:25 Toprol Xl - PO Not Given BID MARY Morphine Sulfate 4 mg 05/25/16 04:15 05/26/16 08:12 Morphine Injection - IVPUSH 4 mg Q6H PRN Administration PAIN Sertraline HCl 50 mg 05/12/16 10:00 05/25/16 13:30 Zoloft - PO 50 mg DAILY MARY Administration Sevelamer Carbonate 2.4 gm 05/25/16 12:00 05/25/16 17:28 Renvela Powder Packet - PO 2.4 gm TIDCM MARY Administration Sitagliptin Phosphate 25 mg 05/12/16 07:00 05/25/16 06:20 Januvia - PO 25 mg ACBK MARY Administration Sodium Thiosulfate 25 gm 05/19/16 13:00 05/24/16 19:59 Sodium Thiosulfate IV 25 gm MoWeFr@1300 MARY Administration Vital Signs Period Temp Pulse Resp BP Sys/Ledbetter Pulse Ox Last 24 Hr 97.2 F-98.3 F 59-97 18-20 97-135/41-71 98-100 Constitutional: Yes: No Distress, Calm Eyes: No: Sclera Icterus HENT: No: Nasal Congestion Cardiovascular: Yes: Pulse Irregular, S1, S2, Other (PMI non diplaced). No: JVD , Gallop, Murmur Respiratory: Yes: cta bl nl eff. No: Accessory Muscle Use, Rales, Wheezes Gastrointestinal: Yes: Normal Bowel Sounds, Soft. No: Tenderness Musculoskeletal: Yes: Other (No kyphosis) Extremities: No: Cold Edema: Yes (trace pretib) Integumentary: No: Jaundice diaphoresis Neurological: Yes: Alert, Oriented (x3) Psychiatric: No: Agitated Labs: CBC, BMP 05/26/16 09:45 echo 09/2015: mod lve, mild-mod dec lvef, global HK, nl rv, mod-sev mr, sev tr, marixa, nl rvsp echo 03/2016: mild lve, mod dec lvef, ant HK, nl rv size, marixa, mild mr, mod tr, rvsp 40-50 a/p: 60 m hx htn, hld, dm, cabg (04/2006), ESRD, afib/flutter, syst chf, esrd on HD, here with infected foot wound chronic syst chf: -significant sob with little activity and orthopnea earlier this admit -attempting incr frequency of HD/UF here, per d/w dr mcghee -cont po lasix 80 bid and HD for vol management (started 05/12) -recent echo 03/2016 here similar to 09/2015, shows mod reduced lvef--? etiology ( ? if EF already down at time of dx of CAD and CABG) -need accurate assessment of AF rate control (r/o tachy-CMP) and burden ( paroxysmal) as outpt -has been getting near-daily HD/UF -05/20: overall wt trend here 213-->202 -however remains with severe orthopnea -doubt copd sx (pt given trial of nebs and says was no better) -CXR without evidence of pulm congestion, however suspect he is still hiding volume and filling pressures are up -d/w'd renal: plan to continue frequent UF until objective evidence of vol depletion -05/21: s/p UF yesterday; wt down 202 to 201; -05/22: no UF yesterday; wt up 201 to 204 this am--now 199 s/p UF today -05/23-: Orthopnea improved, wt down. con't home regimen of 80 mg po bid and volume management per renal/HD. -needs outpt PFTs/pulm eval (continuing high dose BB for now, no wheezing) -holding diovan 80 qd, hydralazine 25 bid, and isordil 10 qd given low bp possibly from sepsis, and low bp's at HD at home which may limit attempts at aggressive fluid removal here -reassess later once volume status better, if bp stable afib/flutter: -initially not well controlled--HRs to 140s at times. (cannot use dilt with chronic syst chf, low dose digoxin (HD pt) hi risk toxicity. Amio or consider AVN ablation/PPM if cannot adequately control HRs) -frequent self-d/c of cafeteria monitor limits assessment -? if tachy contributing to LV dysfunction and/or hi intracardiac filling pressures -05/20 incr'd toprol 200 bid (prefer not to hold it on HD days, if bp can tolerate) -05/22-05/26: Overall rate controlled, cont same, can dc tele -if remains with frequent tachy, can try change metoprolol to propranolol -avoiding dig given HD pt with risks of fluctuating levels -cont eliquis 2.5 bid (presyncopal consistently following eliquis 5mg doses at home--???)--hope to incr later once chf status and bp drops from HD are stabilized ESRD -cont hd per renal -fluid removal as disc'd above htn: -bp's on low side here, possibly due to infection/cellulitis so holding diovan, nitrate, hydralazine for now, resume when bp stable -LH/presyncope episodes at home, ? (highly unusual) med effect (eliquis 5mg)-- suspect more likely related to hi chf med burden with intravasc fluid shifts from HD hld: -cont home statin cad s/p cabg: -ce's neg x2, EKG without ischemic changes here, no suspected angina sx's -recent echo w/o sig change from prior -cont statin, bb, ac le cellulitis, possible gangrene, PAD: -plans per vascular surgery, ID -planned for LE angio today -cont to hold eliquis for now
[2016-05-26] MEDS ORDERED: HEPARIN NA (PORCINE) 5,000 UNITS/ML 1ML VIAL ONE ×2 (10:52→14:19)
[2016-05-26] MEDS: CEFTRIAXONE 50 ML IVPB SCH (11:36)
--- NOTE | 2016-05-26 11:51 | PN ---
Progress Note, Physician History of Present Illness: pulmonary alert,laying flat in bed ,comfortable,-resp distress - Current Medication List Current Medications: Active Medications Atorvastatin Calcium (Lipitor -) 10 mg PO HS [facility] Last Admin: 05/25/16 21:25 Dose: Not Given Enoxaparin Sodium (Lovenox -) 30 mg SQ DAILY [facility] Last Admin: 05/25/16 13:46 Dose: Not Given Fenofibric Acid (Trilipix -) 45 mg PO DAILY [facility] Last Admin: 05/25/16 17:30 Dose: 45 mg Furosemide (Lasix -) 80 mg PO BIDLASIX [facility] Last Admin: 05/26/16 06:23 Dose: 80 mg Ceftriaxone Sodium (Rocephin 1gm Ivpb (Pre-Docked)) 50 mls @ 100 mls/hr IVPB DAILY [facility] Last Admin: 05/26/16 11:36 Dose: 100 mls/hr Metoprolol Succinate (Toprol Xl -) 200 mg PO BID [facility] Last Admin: 05/25/16 21:25 Dose: Not Given Morphine Sulfate (Morphine Injection -) 4 mg IVPUSH Q6H PRN PRN Reason: PAIN Last Admin: 05/26/16 08:12 Dose: 4 mg Sertraline HCl (Zoloft -) 50 mg PO DAILY [facility] Last Admin: 05/25/16 13:30 Dose: 50 mg Sevelamer Carbonate (Renvela Powder Packet -) 2.4 gm PO TIDCM [facility] Last Admin: 05/25/16 17:28 Dose: 2.4 gm Sitagliptin Phosphate (Januvia -) 25 mg PO ACBK [facility] Last Admin: 05/25/16 06:20 Dose: 25 mg Sodium Thiosulfate (Sodium Thiosulfate) 25 gm IV MoWeFr@1300 [facility] Last Admin: 05/24/16 19:59 Dose: 25 gm - Objective Vital Signs: Vital Signs Temperature 97.2 F L 05/26/16 08:18 Pulse Rate 97 H 05/26/16 08:18 Respiratory Rate 18 05/26/16 09:00 Blood Pressure 122/67 05/26/16 08:18 O2 Sat by Pulse Oximetry (%) 100 05/26/16 09:00 Constitutional: Yes: Well Nourished, Calm Eyes: Yes: WNL HENT: Yes: WNL Neck: Yes: WNL Cardiovascular: Yes: Pulse Irregular, S1, S2 Respiratory: Yes: Diminished Gastrointestinal: Yes: Normal Bowel Sounds, Soft Extremities: Yes: Other (left foot bandaged) Edema: Yes Labs: CBC, BMP 05/26/16 09:45 05/26/16 09:45 INR, PTT INR 1.59 (0.82-1.09) H 05/11/16 13:20 Problem List - Problems (1) Afib Code(s): I48.91 - UNSPECIFIED ATRIAL FIBRILLATION (3) CHF exacerbation Code(s): I50.9 - HEART FAILURE, UNSPECIFIED Qualifiers: Congestive heart failure type: unspecified congestive heart failure type Qualified Code(s): I50.9 - Heart failure, unspecified (4) Cellulitis and abscess of foot Code(s): L03.119 - CELLULITIS OF UNSPECIFIED PART OF LIMB L02.619 - CUTANEOUS ABSCESS OF UNSPECIFIED FOOT (5) Microangiopathy, 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 (6) Anemia Code(s): D64.9 - ANEMIA, UNSPECIFIED Qualifiers: Anemia type: unspecified type Qualified Code(s): D64.9 - Anemia, unspecified (7) Atrial fibrillation with RVR Code(s): I48.91 - UNSPECIFIED ATRIAL FIBRILLATION (8) Bilateral shoulder pain Code(s): M25.511 - PAIN IN RIGHT SHOULDER M25.512 - PAIN IN LEFT SHOULDER (9) Cellulitis of foot Code(s): L03.119 - CELLULITIS OF UNSPECIFIED PART OF LIMB (10) Dyspnea on exertion Code(s): R06.09 - OTHER FORMS OF DYSPNEA (11) HTN (hypertension) Code(s): I10 - ESSENTIAL (PRIMARY) HYPERTENSION (12) Atrial flutter Code(s): I48.92 - UNSPECIFIED ATRIAL FLUTTER (13) CAD, multiple vessel Code(s): I25.10 - ATHSCL HEART DISEASE OF [place] CORONARY ARTERY W/O ANG PCTRS (14) Congestive heart failure Code(s): I50.9 - HEART FAILURE, UNSPECIFIED Qualifiers: Congestive heart failure type: systolic Congestive heart failure chronicity: acute on chronic Qualified Code(s): I50.23 - Acute on chronic systolic (congestive) heart failure (15) Diabetes Code(s): E11.9 - TYPE 2 DIABETES MELLITUS WITHOUT COMPLICATIONS (16) End stage renal disease Code(s): N18.6 - END STAGE RENAL DISEASE Assessment/Plan IMP DYSPNEA MULTIPLE FACTORS,CHF,COPD improved PULMONARY HTN ASHD S/P CABG ESRD ON HD AFIB HTN DM PVD CELLULITIS LIKELY OSAS PLAN HD PER RENAL CONTINUE ANTIBIOTICS PER ID INHALED BRONCHODILATORS SUPPLEMENTAL O2 CHECK O2 SAT AT REST AND POST EXERCISE ON RA PFTS OUTPATIENT SLEEP STUDIES OUTPATIENT LLE ANGIOGRAM/ANGIOPLASY TODAY DR LUNA
[2016-05-26] MEDS ORDERED: KETOROLAC TROMETHAMINE 30 MG/1 ML VIAL ONE (12:53)
[2016-05-26] MEDS ORDERED: MIDAZOLAM HCL 2 MG/2 ML SINGLE DOSE VIAL ONE ×2 (13:00)
[2016-05-26] MEDS ORDERED: PROPOFOL 20 ML ONE (13:05)
[2016-05-26] MEDS ORDERED: LIDOCAINE HCL 1%, 10 MG/ML (50 mL VIAL) IJ ONE (13:13)
[2016-05-26] MEDS ORDERED: ACETAMINOPHEN INJECTION 100 ML IVPB ONE (13:58)
--- NOTE | 2016-05-26 14:50 | OP ---
Operative Note - Note: Operative Date: 05/26/16 Pre-Operative Diagnosis: Non-healing wounds left foot Operation: Bilateral femoral artery cannulation. Angiogram aorta, iliacs, left leg. Placement bilateral common iliac (kissing) stents Findings: Atherosclerotic disease of the abdominal aorta, iliac and commonfemoral arteries. 90% stenosis of left MARIUSZ. Patent left SFA, popliteal and PT to ankle. Implants: Right MARIUSZ 9 mm x 26 mm Valeo stent. Left MARIUSZ 9 mm x 37 mm Vis-Pro stent Post-Operative Diagnosis: Same as Pre-op Surgeon: Fer Young Roller Inspector: Cecelia Johnson Anesthesiologist/DIRECTOR OF CARDIOLOGY SERVICE LINE: Terrell Donohue Anesthesia: Fractional Estimated Blood Loss (mls): 30
[2016-05-26] MEDS ORDERED: PT OWN MED DRAWER 7, Y5N ONE (17:23)
[2016-05-26] MEDS ORDERED: SEVELAMER CARBONATE 0.8 GM POWDER PACKET PO SCH (17:30)
[2016-05-26] MEDS ORDERED: morphine CARPU-JECT 4 MG/1 ML DISP.SYRIN IVPUSH ONE ×2 (18:00→20:15)
--- NOTE | 2016-05-26 19:11 | PN ---
Progress Note (short form) - Note Progress Note: Renal Follow up for ESRD Pt seen and examined in the recovery room s/p angioplasty with stenting no acute complaints denies any sob or chest pain Vital Signs Temperature 98.8 F 05/26/16 17:55 Pulse Rate 96 H 05/26/16 18:58 Respiratory Rate 18 05/26/16 18:58 Blood Pressure 109/81 05/26/16 18:58 O2 Sat by Pulse Oximetry (%) 98 05/26/16 16:20 Gen: awake and alert CVS: RRR, No M/R Lungs: CTA, no rales or wheeze Abd: soft NT/ND Ext: Trace edema in LE. CBC, BMP 05/26/16 09:45 05/26/16 09:45 Current Medications Atorvastatin Calcium (Lipitor -) 10 mg PO HS MARY Enoxaparin Sodium (Lovenox -) 30 mg SQ DAILY MARY Fenofibric Acid (Trilipix -) 45 mg PO DAILY MARY Furosemide (Lasix -) 80 mg PO BIDLASIX MARY Ceftriaxone Sodium (Rocephin 1gm Ivpb (Pre-Docked)) 50 mls @ 100 mls/hr IVPB DAILY MARY Metoprolol Succinate (Toprol Xl -) 200 mg PO BID MARY Morphine Sulfate (Morphine Injection -) 4 mg IVPUSH Q6H PRN PRN Reason: PAIN Last Admin: 05/26/16 17:31 Dose: 4 mg Sertraline HCl (Zoloft -) 50 mg PO DAILY MARY Sevelamer Carbonate (Renvela Powder Packet -) 2.4 gm PO TIDCM MARY Sitagliptin Phosphate (Januvia -) 25 mg PO ACBK MARY Sodium Thiosulfate (Sodium Thiosulfate) 25 gm IV MoWeFr@1300 MARY A/P 60 year old gentleman with PMhx of ESRD (recently started on dialysis), CAD s/p CABG, DM Type 2, Depression, CHF who with LE weakness s/p recent fall and wound on right foot. #ESRD on HD with fluid overload HD today UF as tolerated #LE wound/PVD s/p angiogram with stenting wound care ID follow for any further Abx #Suspected Caliphyalxis Continue sodium thiosulfate IVPB with dialysis 3x weekly with HD keep Ca x Phos product less then 55 Won Weiss DO
[2016-05-26] MEDS: SODIUM THIOSULFATE 12.5 GM/50 ML VIAL IV SCH (20:50)
[2016-05-26] MEDS: SEVELAMER CARBONATE 2.4 GM POWDER PACKET PO SCH (21:42)
[2016-05-26] MEDS: ATORVASTATIN CA 10 MG TABLET (FP) PO SCH (21:43)
[2016-05-26] MEDS: METOPROLOL SUCCINATE 100 MG TAB.SR.24H (FP) PO SCH (21:43)
--- NOTE | 2016-05-26 22:59 | PN ---
Progress Note, Physician History of Present Illness: No new complaints - Current Medication List Current Medications: Active Medications Atorvastatin Calcium (Lipitor -) [address] [facility] Last Admin: 05/26/16 21:43 Dose: 10 mg Enoxaparin Sodium (Lovenox -) [address] [facility] Fenofibric Acid (Trilipix -) [address] [facility] Furosemide (Lasix -) [address] [facility] Ceftriaxone Sodium (Rocephin 1gm Ivpb (Pre-Docked)) 50 mls @ 100 mls/hr IVPB DAILY [facility] Metoprolol Succinate (Toprol Xl -) [address] [facility] Last Admin: 05/26/16 21:43 Dose: 200 mg Morphine Sulfate (Morphine Injection -) 4 mg IVPUSH Q6H PRN PRN Reason: PAIN Last Admin: 05/26/16 17:31 Dose: 4 mg Sertraline HCl (Zoloft -) [address] [facility] Sevelamer Carbonate (Renvela Powder Packet -) 2.[address] [facility] Last Admin: 05/26/16 21:42 Dose: Not Given Sitagliptin Phosphate (Januvia -) [address] [facility] Sodium Thiosulfate (Sodium Thiosulfate) 25 gm IV MoWeFr@1300 [facility] Last Admin: 05/26/16 20:50 Dose: 25 gm - Objective Vital Signs: Vital Signs Temperature 98.8 F 05/26/16 17:55 Pulse Rate 85 05/26/16 21:20 Respiratory Rate 20 05/26/16 21:20 Blood Pressure 107/60 05/26/16 21:20 O2 Sat by Pulse Oximetry (%) 99 05/26/16 21:17 Cardiovascular: Yes: WNL, Regular Rate and Rhythm Respiratory: Yes: WNL, Regular, CTA Bilaterally Gastrointestinal: Yes: WNL, Normal Bowel Sounds, Soft Labs: CBC, BMP 05/26/16 09:45 05/26/16 09:45 INR, PTT INR 1.59 (0.82-1.09) H 05/11/16 13:20 Problem List - Problems (1) Cellulitis of foot Code(s): L03.119 - CELLULITIS OF UNSPECIFIED PART OF LIMB (2) Dyspnea Code(s): R06.00 - DYSPNEA, UNSPECIFIED (3) Afib Code(s): I48.91 - UNSPECIFIED ATRIAL FIBRILLATION (4) HTN (hypertension) Code(s): I10 - ESSENTIAL (PRIMARY) HYPERTENSION (5) Congestive heart failure Code(s): I50.9 - HEART FAILURE, UNSPECIFIED Qualifiers: Qualified Code(s): I50.23 - Acute on chronic systolic (congestive) heart failure (6) Diabetes Code(s): E11.9 - TYPE 2 DIABETES MELLITUS WITHOUT COMPLICATIONS (7) End stage renal disease Code(s): N18.6 - END STAGE RENAL DISEASE (8) Anemia Code(s): D64.9 - ANEMIA, UNSPECIFIED Qualifiers: Qualified Code(s): D64.9 - Anemia, unspecified (9) HLD (hyperlipidemia) Code(s): E78.5 - HYPERLIPIDEMIA, UNSPECIFIED
[2016-05-27] MEDS: morphine CARPU-JECT 2 MG/1 ML DISP.SYRIN IVPUSH PRN ×4 (00:20→20:19)
[2016-05-27] MEDS: FUROSEMIDE 40 MG TABLET (FP) PO SCH ×2 (06:17→13:31)
[2016-05-27] MEDS: sitaGLIPtin PHOSPHATE 25 MG TABLET (FP) PO SCH (06:17)
[2016-05-27 08:09] LABS: BASOPHIL 2.6 % (0-2.0); EOSINOPHIL 1.5 % (0-4.5); MCH 28.2 pg (25.7-33.7); MCHC 31.5 g/dl (32.0-35.9); MEAN CELL VOLUME 89.4 fl (80-96); MEAN PLT VOLUME 8.7 fl (7.5-11.1); NEUTROPHILS 73.7 % (42.8-82.8); PLATELET COUNT 225 K/MM3 (134-434); RDW 16.3 % (11.9-15.9); WHITE BLOOD COUNT 11.1 K/mm3 (4.0-10.0)
[2016-05-27] MEDS: SEVELAMER CARBONATE 2.4 GM POWDER PACKET PO SCH ×3 (08:36→17:12)
[2016-05-27] MEDS: ENOXAPARIN NA (PORCINE) 30 MG/0.3 ML DISP.SYRIN SQ SCH ×2 (09:08→09:18)
[2016-05-27] MEDS: METOPROLOL SUCCINATE 100 MG TAB.SR.24H (FP) PO SCH ×2 (09:09→21:59)
[2016-05-27] MEDS: CEFTRIAXONE 1G/50 ML IVPB SCH (09:09)
[2016-05-27] MEDS: FENOFIBRIC ACID 45 MG CAP PO SCH (09:10)
[2016-05-27 09:11] LABS: CALCIUM 8.7 mg/dL (8.5-10.1); CREATININE 4.9 mg/dL (0.7-1.3); PHOSPHOROUS 5.1 mg/dL (2.5-4.9)
[2016-05-27] MEDS: SERTRALINE HCL 50 MG TABLET (FP) PO SCH (09:11)
--- NOTE | 2016-05-27 10:05 | PN ---
Progress Note (short form) - Note Progress Note: Chief Complaint: foot wound, afib History of Present Illness: sob improved, no orthopnea no cp, palpit, dizziness, loc ex cigs Current Medications Generic Name Dose Route Start Last Admin Trade Name Freq PRN Reason Stop Dose Admin Atorvastatin Calcium 10 mg 05/26/16 22:00 05/26/16 21:43 Lipitor - PO 10 mg HS MARY Administration Enoxaparin Sodium 30 mg 05/27/16 10:00 05/27/16 09:18 Lovenox - SQ Not Given DAILY MARY Fenofibric Acid 45 mg 05/27/16 10:00 05/27/16 09:10 Trilipix - PO 45 mg DAILY MARY Administration Furosemide 80 mg 05/27/16 06:00 05/27/16 06:17 Lasix - PO 80 mg BIDLASIX MARY Administration Ceftriaxone Sodium 50 mls @ 100 mls/hr 05/27/16 10:00 05/27/16 09:09 Rocephin 1gm Ivpb (Pre-Docked) IVPB 100 mls/hr DAILY MARY Administration Metoprolol Succinate 200 mg 05/26/16 22:00 05/27/16 09:09 Toprol Xl - PO 200 mg BID MARY Administration Morphine Sulfate 4 mg 05/26/16 16:39 05/27/16 06:17 Morphine Injection - IVPUSH 4 mg Q6H PRN Administration PAIN Sertraline HCl 50 mg 05/27/16 10:00 05/27/16 09:11 Zoloft - PO 50 mg DAILY MARY Administration Sevelamer Carbonate 2.4 gm 05/26/16 17:30 05/27/16 08:36 Renvela Powder Packet - PO Not Given TIDCM MARY Sitagliptin Phosphate 25 mg 05/27/16 07:00 05/27/16 06:17 Januvia - PO 25 mg ACBK MARY Administration Sodium Thiosulfate 25 gm 05/26/16 19:30 05/26/16 20:50 Sodium Thiosulfate IV 25 gm MoWeFr@1300 MARY Administration Vital Signs Period Temp Pulse Resp BP Sys/Ledbetter Pulse Ox Last 24 Hr 98.0 F-98.8 F 61-103 14-20 84-127/50-81 98-100 Constitutional: Yes: No Distress, Calm Eyes: No: Sclera Icterus HENT: No: Nasal Congestion Cardiovascular: Yes: Pulse Irregular, S1, S2, Other (PMI non diplaced). No: JVD , Gallop, Murmur Respiratory: Yes: cta bl nl eff. No: Accessory Muscle Use, Rales, Wheezes Gastrointestinal: Yes: Normal Bowel Sounds, Soft. No: Tenderness Musculoskeletal: Yes: Other (No kyphosis) Extremities: No: Cold Edema: Yes (trace pretib) Integumentary: No: Jaundice diaphoresis Neurological: Yes: Alert, Oriented (x3) Psychiatric: No: Agitated Labs: CBC, BMP 05/27/16 06:07 05/27/16 06:07 echo 09/2015: mod lve, mild-mod dec lvef, global HK, nl rv, mod-sev mr, sev tr, marixa, nl rvsp echo 03/2016: mild lve, mod dec lvef, ant HK, nl rv size, marixa, mild mr, mod tr, rvsp 40-50 a/p: 60 m hx htn, hld, dm, cabg (04/2006), ESRD, afib/flutter, syst chf, esrd on HD, here with infected foot wound chronic syst chf: -significant sob with little activity and orthopnea earlier this admit -attempting incr frequency of HD/UF here, per d/w dr mcghee -cont po lasix 80 bid and HD for vol management (started 05/12) -recent echo 03/2016 here similar to 09/2015, shows mod reduced lvef--? etiology ( ? if EF already down at time of dx of CAD and CABG) -need accurate assessment of AF rate control (r/o tachy-CMP) and burden ( paroxysmal) as outpt -has been getting near-daily HD/UF -05/20: overall wt trend here 213-->202 -however remains with severe orthopnea -doubt copd sx (pt given trial of nebs and says was no better) -CXR without evidence of pulm congestion, however suspect he is still hiding volume and filling pressures are up -d/w'd renal: plan to continue frequent UF until objective evidence of vol depletion -05/21: s/p UF yesterday; wt down 202 to 201; -05/22: no UF yesterday; wt up 201 to 204 this am--now 199 s/p UF today -05/23-05/27: Orthopnea improved, wt stable. con't home regimen of 80 mg po bid and volume management per renal/HD. -needs outpt PFTs/pulm eval (continuing high dose BB for now, no wheezing) -holding diovan 80 qd, hydralazine 25 bid, and isordil 10 qd given low bp possibly from sepsis, and low bp's at HD at home which may limit attempts at aggressive fluid removal here -reassess later once volume status better, if bp stable afib/flutter: -initially not well controlled--HRs to 140s at times. (cannot use dilt with chronic syst chf, low dose digoxin (HD pt) hi risk toxicity. Amio or consider AVN ablation/PPM if cannot adequately control HRs) -frequent self-d/c of tar kettle runner limits assessment -? if tachy contributing to LV dysfunction and/or hi intracardiac filling pressures -05/20 incr'd toprol 200 bid (prefer not to hold it on HD days, if bp can tolerate) -05/22-05/26: Overall rate controlled, cont same, can dc tele -if remains with frequent tachy, can try change metoprolol to propranolol -avoiding dig given HD pt with risks of fluctuating levels -cont eliquis 2.5 bid (presyncopal consistently following eliquis 5mg doses at home--???)--hope to incr later once chf status and bp drops from HD are stabilized ESRD -cont hd per renal -fluid removal as disc'd above htn: -bp's on low side here, possibly due to infection/cellulitis so holding diovan, nitrate, hydralazine for now, resume when bp stable -LH/presyncope episodes at home, ? (highly unusual) med effect (eliquis 5mg)-- suspect more likely related to hi chf med burden with intravasc fluid shifts from HD hld: -cont home statin cad s/p cabg: -ce's neg x2, EKG without ischemic changes here, no suspected angina sx's -recent echo w/o sig change from prior -cont statin, bb, ac le cellulitis, possible gangrene, PAD: -s/p b/l common iliac stenting 05/26 -plans per vascular surgery, ID -resume eliquis if no further procedures planned
--- NOTE | 2016-05-27 11:54 | PN ---
Progress Note (short form) - Note Progress Note: s/p angiogram Pt without any pain/swelling in his groins Vital Signs Period Temp Pulse Resp BP Sys/Ledbetter Pulse Ox Last 24 Hr 98.0 F-98.8 F 61-103 14-20 84-127/50-81 98-100 PE: Groin: b/l no evidence of bleeding/masses. Clean and dry with dermabond. feet: b/l warm to touch with PT pulse with doppler CBC, BMP 05/27/16 06:07 05/27/16 06:07 s/p Bilateral femoral artery cannulation. Angiogram aorta, iliacs, left leg. Placement bilateral common iliac (kissing) stents for left non-healing foot wound Continue IV abx Local wound care May resume eliqueduardo D/w Dr. Young <Cecelia Johnson - Last Filed: 05/27/16 12:08> - Note Progress Note: Groins dry, no hematoma. Femoral pulses 2+ PT present with Doppler. Stable. May need distal tibial atherectomy if foot fails to improve. <Fer Young - Last Filed: 05/27/16 15:07> Problem List
--- NOTE | 2016-05-27 14:19 | PN ---
Progress Note (short form) - Note Progress Note: Resting in NAD. No acute events overnight. S/P angio with stent placement yesterday. Intake & Output 05/24/16 05/25/16 05/26/16 05/27/16 23:59 23:59 23:59 23:59 Intake Total 570 540 560 Output Total 20 Balance 570 540 540 Weight 198 lb 4 oz 199 lb 1.239 oz 198 lb 199 lb Last Vital Signs Temp Pulse Resp BP Pulse Ox 98.8 F 89 20 127/57 99 05/26/16 17:55 05/27/16 05:42 05/27/16 05:42 05/27/16 05:42 05/26/16 21:17 Active Medications Atorvastatin Calcium (Lipitor -) 10 mg PO HS [facility] Last Admin: 05/26/16 21:43 Dose: 10 mg Enoxaparin Sodium (Lovenox -) 30 mg SQ DAILY [facility] Last Admin: 05/27/16 09:18 Dose: Not Given Fenofibric Acid (Trilipix -) 45 mg PO DAILY [facility] Last Admin: 05/27/16 09:10 Dose: 45 mg Furosemide (Lasix -) 80 mg PO BIDLASIX [facility] Last Admin: 05/27/16 13:31 Dose: 80 mg Ceftriaxone Sodium (Rocephin 1gm Ivpb (Pre-Docked)) 50 mls @ 100 mls/hr IVPB DAILY [facility] Last Admin: 05/27/16 09:09 Dose: 100 mls/hr Metoprolol Succinate (Toprol Xl -) 200 mg PO BID [facility] Last Admin: 05/27/16 09:09 Dose: 200 mg Morphine Sulfate (Morphine Injection -) 4 mg IVPUSH Q6H PRN PRN Reason: PAIN Last Admin: 05/27/16 13:39 Dose: 4 mg Sertraline HCl (Zoloft -) 50 mg PO DAILY [facility] Last Admin: 05/27/16 09:11 Dose: 50 mg Sevelamer Carbonate (Renvela Powder Packet -) 2.4 gm PO TIDCM [facility] Last Admin: 05/27/16 12:00 Dose: Not Given Sitagliptin Phosphate (Januvia -) 25 mg PO ACBK [facility] Last Admin: 05/27/16 06:17 Dose: 25 mg Sodium Thiosulfate (Sodium Thiosulfate) 25 gm IV MoWeFr@1300 [facility] Last Admin: 05/26/16 20:50 Dose: 25 gm Constitutional: Yes: NAD Eyes: Yes: WNL HENT: Yes: WNL Neck: Yes: WNL Cardiovascular: Yes: Pulse Irregular, S1, S2 Respiratory: Yes: Diminished at the bases Gastrointestinal: Yes: Normal Bowel Sounds, Soft Extremities: Yes: Other (left foot bandaged) Edema: Yes Labs: Laboratory Results - last 24 hr 05/27/16 05/27/16 05/27/16 05:35 06:07 06:07 WBC 11.1 H RBC 3.49 L Hgb 9.8 L Hct 31.2 L MCV 89.4 MCHC 31.5 L RDW 16.3 H Plt Count 225 MPV 8.7 Neutrophils % 73.7 Lymphocytes % 14.0 Monocytes % 8.2 Eosinophils % 1.5 Basophils % 2.6 H Sodium 140 Potassium 4.3 Chloride 100 Carbon Dioxide 25 Anion Gap 15 BUN 37 H D Creatinine 4.9 H POC Glucometer 96 Random Glucose 124 H D Calcium 8.7 Phosphorus 5.1 H Problem List - Problems (1) Afib Code(s): I48.91 - UNSPECIFIED ATRIAL FIBRILLATION (3) CHF exacerbation Code(s): I50.9 - HEART FAILURE, UNSPECIFIED Qualifiers: Congestive heart failure type: unspecified congestive heart failure type Qualified Code(s): I50.9 - Heart failure, unspecified (4) Cellulitis and abscess of foot Code(s): L03.119 - CELLULITIS OF UNSPECIFIED PART OF LIMB L02.619 - CUTANEOUS ABSCESS OF UNSPECIFIED FOOT (5) Microangiopathy, 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 (6) Anemia Code(s): D64.9 - ANEMIA, UNSPECIFIED Qualifiers: Anemia type: unspecified type Qualified Code(s): D64.9 - Anemia, unspecified (7) Atrial fibrillation with RVR Code(s): I48.91 - UNSPECIFIED ATRIAL FIBRILLATION (8) Bilateral shoulder pain Code(s): M25.511 - PAIN IN RIGHT SHOULDER M25.512 - PAIN IN LEFT SHOULDER (9) Cellulitis of foot Code(s): L03.119 - CELLULITIS OF UNSPECIFIED PART OF LIMB (10) Dyspnea on exertion Code(s): R06.09 - OTHER FORMS OF DYSPNEA (11) HTN (hypertension) Code(s): I10 - ESSENTIAL (PRIMARY) HYPERTENSION (12) Atrial flutter Code(s): I48.92 - UNSPECIFIED ATRIAL FLUTTER (13) CAD, multiple vessel Code(s): I25.10 - ATHSCL HEART DISEASE OF [place] CORONARY ARTERY W/O ANG PCTRS (14) Congestive heart failure Code(s): I50.9 - HEART FAILURE, UNSPECIFIED Qualifiers: Congestive heart failure type: systolic Congestive heart failure chronicity: acute on chronic Qualified Code(s): I50.23 - Acute on chronic systolic (congestive) heart failure (15) Diabetes Code(s): E11.9 - TYPE 2 DIABETES MELLITUS WITHOUT COMPLICATIONS (16) End stage renal disease Code(s): N18.6 - END STAGE RENAL DISEASE Assessment/Plan IMP DYSPNEA MULTIPLE FACTORS,CHF,COPD improved PULMONARY HTN ASHD S/P CABG ESRD ON HD AFIB HTN DM PVD CELLULITIS LIKELY OSAS PLAN HD PER RENAL ABX PER ID INHALED BRONCHODILATORS SUPPLEMENTAL O2 PFTS OUTPATIENT SLEEP STUDIES OUTPATIENT DR PARK
--- NOTE | 2016-05-27 15:24 | PN ---
Progress Note, Physician Chief Complaint: The patient on IV antibiotics as per the ID Services Comfortable. No chest pain, No shortness of breath. S/ P angiogram with stenting of the LE Maintains stable vital signs. - Current Medication List Current Medications: Active Medications Atorvastatin Calcium (Lipitor -) 10 mg PO HS [facility] Last Admin: 05/26/16 21:43 Dose: 10 mg Enoxaparin Sodium (Lovenox -) 30 mg SQ DAILY [facility] Last Admin: 05/27/16 09:18 Dose: Not Given Fenofibric Acid (Trilipix -) 45 mg PO DAILY [facility] Last Admin: 05/27/16 09:10 Dose: 45 mg Furosemide (Lasix -) 80 mg PO BIDLASIX [facility] Last Admin: 05/27/16 13:31 Dose: 80 mg Ceftriaxone Sodium (Rocephin 1gm Ivpb (Pre-Docked)) 50 mls @ 100 mls/hr IVPB DAILY [facility] Last Admin: 05/27/16 09:09 Dose: 100 mls/hr Metoprolol Succinate (Toprol Xl -) 200 mg PO BID [facility] Last Admin: 05/27/16 09:09 Dose: 200 mg Morphine Sulfate (Morphine Injection -) 4 mg IVPUSH Q6H PRN PRN Reason: PAIN Last Admin: 05/27/16 13:39 Dose: 4 mg Sertraline HCl (Zoloft -) 50 mg PO DAILY [facility] Last Admin: 05/27/16 09:11 Dose: 50 mg Sevelamer Carbonate (Renvela Powder Packet -) 2.4 gm PO TIDCM [facility] Last Admin: 05/27/16 12:00 Dose: Not Given Sitagliptin Phosphate (Januvia -) 25 mg PO ACBK [facility] Last Admin: 05/27/16 06:17 Dose: 25 mg Sodium Thiosulfate (Sodium Thiosulfate) 25 gm IV MoWeFr@1300 [facility] Last Admin: 05/26/16 20:50 Dose: 25 gm - Objective Vital Signs: Vital Signs Temperature 98 F 05/27/16 10:00 Pulse Rate 94 H 05/27/16 10:00 Respiratory Rate 18 05/27/16 10:00 Blood Pressure 130/65 05/27/16 10:00 O2 Sat by Pulse Oximetry (%) 97 05/27/16 09:00 Constitutional: Yes: Well Nourished, No Distress Eyes: Yes: Conjunctiva Clear HENT: Yes: Atraumatic Cardiovascular: Yes: Pulse Irregular, S1, S2 Respiratory: Yes: CTA Bilaterally Gastrointestinal: Yes: Normal Bowel Sounds, Soft Labs: CBC, BMP 05/27/16 06:07 05/27/16 06:07 INR, PTT INR 1.59 (0.82-1.09) H 05/11/16 13:20 Problem List - Problems (1) Afib Code(s): I48.91 - UNSPECIFIED ATRIAL FIBRILLATION (2) CHF exacerbation Code(s): I50.9 - HEART FAILURE, UNSPECIFIED Qualifiers: Congestive heart failure type: unspecified congestive heart failure type Qualified Code(s): I50.9 - Heart failure, unspecified (3) HLD (hyperlipidemia) Code(s): E78.5 - HYPERLIPIDEMIA, UNSPECIFIED (4) Microangiopathy, 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 (5) Anemia Code(s): D64.9 - ANEMIA, UNSPECIFIED Qualifiers: Anemia type: unspecified type Qualified Code(s): D64.9 - Anemia, unspecified (6) Cellulitis of foot Code(s): L03.119 - CELLULITIS OF UNSPECIFIED PART OF LIMB (7) HTN (hypertension) Code(s): I10 - ESSENTIAL (PRIMARY) HYPERTENSION (8) Renal failure Code(s): N19 - UNSPECIFIED KIDNEY FAILURE (9) End stage chronic kidney disease Code(s): N18.6 - END STAGE RENAL DISEASE Z99.2 - DEPENDENCE ON RENAL DIALYSIS Assessment/Plan Patient with ESRD, with Peripheral vascular disease, LE ulceration and s/ p vascular intervention and stenting. Was being dialyzed daily till yester, and had received Sodium Thiosulfate post dialysis, for Calciphylaxis. Patient for next dialysis on Sunday. Medications and Lab data reviewed. Thanks you. Shayna Enriquez MD
--- NOTE | 2016-05-27 20:12 | PN ---
Progress Note, Physician History of Present Illness: Will change to PO pain meds bc pt has not seemed to be in acute pain - Current Medication List Current Medications: Active Medications Atorvastatin Calcium (Lipitor -) 10 mg PO HS [facility] Last Admin: 05/26/16 21:43 Dose: 10 mg Enoxaparin Sodium (Lovenox -) 30 mg SQ DAILY [facility] Last Admin: 05/27/16 09:18 Dose: Not Given Fenofibric Acid (Trilipix -) 45 mg PO DAILY [facility] Last Admin: 05/27/16 09:10 Dose: 45 mg Furosemide (Lasix -) 80 mg PO BIDLASIX [facility] Last Admin: 05/27/16 13:31 Dose: 80 mg Ceftriaxone Sodium (Rocephin 1gm Ivpb (Pre-Docked)) 50 mls @ 100 mls/hr IVPB DAILY [facility] Last Admin: 05/27/16 09:09 Dose: 100 mls/hr Metoprolol Succinate (Toprol Xl -) 200 mg PO BID [facility] Last Admin: 05/27/16 09:09 Dose: 200 mg Morphine Sulfate (Morphine Injection -) 4 mg IVPUSH Q6H PRN PRN Reason: PAIN Last Admin: 05/27/16 13:39 Dose: 4 mg Sertraline HCl (Zoloft -) 50 mg PO DAILY [facility] Last Admin: 05/27/16 09:11 Dose: 50 mg Sevelamer Carbonate (Renvela Powder Packet -) 2.4 gm PO TIDCM [facility] Last Admin: 05/27/16 17:12 Dose: Not Given Sitagliptin Phosphate (Januvia -) 25 mg PO ACBK [facility] Last Admin: 05/27/16 06:17 Dose: 25 mg Sodium Thiosulfate (Sodium Thiosulfate) 25 gm IV MoWeFr@1300 [facility] Last Admin: 05/26/16 20:50 Dose: 25 gm - Objective Vital Signs: Vital Signs Temperature 97.8 F 05/27/16 15:21 Pulse Rate 98 H 05/27/16 15:21 Respiratory Rate 22 05/27/16 15:21 Blood Pressure 108/58 05/27/16 15:21 O2 Sat by Pulse Oximetry (%) 97 05/27/16 09:00 Constitutional: Yes: Well Nourished Neck: Yes: Supple Cardiovascular: Yes: Pulse Irregular, S1, S2 Respiratory: Yes: WNL, Regular, CTA Bilaterally Gastrointestinal: Yes: WNL, Normal Bowel Sounds, Soft Musculoskeletal: Yes: Other (Lt foot in bandage) Edema: Yes Edema: LLE: Trace, RLE: Trace Labs: CBC, BMP 05/27/16 06:07 05/27/16 06:07 INR, PTT INR 1.59 (0.82-1.09) H 05/11/16 13:20 Problem List - Problems (1) Cellulitis of foot Assessment/Plan: Chronic lt foot ulcer S/P B/L stenting of common iliacs Cont IV ceftriaxone Will reconsult ID about duration of antibxs I will change morphine IV to tramadol po Pain management consult Code(s): L03.119 - CELLULITIS OF UNSPECIFIED PART OF LIMB (2) Dyspnea Assessment/Plan: Multifactorial Due to COPD vs sleep apnea Out pt PFT's/sleep study Cont inhalers Volume status may be fluctuating with dialysis Cont IV lasix Code(s): R06.00 - DYSPNEA, UNSPECIFIED (3) Afib Assessment/Plan: Heart rate slightly tachy in 90's Cont metoprolol As per cardio Will restart eliquis in am As per cardio tele can be dc'ed When I spoke to pt about possibilty that he may have to transfer to another hospital room being that he is on a tele unit and beds on tele are limited and therefore if another pt needs tele bed will need to transfer him to another hospital room. Pt became defiant and said to tell him now if we need the room bc he will get dressed and leave. I told the pt we do not need the room at this moment but being that his tele is dc'ed he can be transferred to [facility] hospital room. Again explained that his condition is serious and he needs IV antibxs and possibilty of another procedure on his foot. Pt states that is OK bc he will go home and then if he feels sicker he will call 911 to come back to hospital even if it means he only stays home for only 1 hr. Pt is competent and aware of seriousness of his illness and aware that we are not asking him to leave the hospital. I told pt that I am not discharging him at all and that he would need to sign out AMA to leave hospital Code(s): I48.91 - UNSPECIFIED ATRIAL FIBRILLATION (4) HTN (hypertension) Assessment/Plan: BP stable Cont metoprolol Code(s): I10 - ESSENTIAL (PRIMARY) HYPERTENSION (5) Congestive heart failure Assessment/Plan: Chronic systolic heart failure Cont IV lasix Monitor electrolytes Code(s): I50.9 - HEART FAILURE, UNSPECIFIED Qualifiers: Qualified Code(s): I50.23 - Acute on chronic systolic (congestive) heart failure (6) Diabetes Assessment/Plan: Cont januvia Code(s): E11.9 - TYPE 2 DIABETES MELLITUS WITHOUT COMPLICATIONS (7) End stage renal disease Assessment/Plan: Dialysis as per renal Monitor electrolytes Cont renvela Code(s): N18.6 - END STAGE RENAL DISEASE (8) Anemia Assessment/Plan: Due to chronic dz Code(s): D64.9 - ANEMIA, UNSPECIFIED Qualifiers: Qualified Code(s): D64.9 - Anemia, unspecified (9) HLD (hyperlipidemia) Code(s): E78.5 - HYPERLIPIDEMIA, UNSPECIFIED
[2016-05-27] MEDS: ATORVASTATIN CA 10 MG TABLET (FP) PO SCH (21:59)
[2016-05-28] MEDS: traMADol HCL 50 MG TABLET PO PRN ×2 (01:32→08:21)
[2016-05-28] MEDS: FUROSEMIDE 40 MG TABLET (FP) PO SCH ×2 (06:00→14:46)
[2016-05-28] MEDS: sitaGLIPtin PHOSPHATE 25 MG TABLET (FP) PO SCH (06:00)
[2016-05-28] MEDS: SEVELAMER CARBONATE 2.4 GM POWDER PACKET PO SCH ×3 (08:08→17:11)
[2016-05-28] MEDS ORDERED: PT OWN MED DRAWER 7, Y5N ONE (09:13)
[2016-05-28] MEDS: CEFTRIAXONE 1G/50 ML IVPB SCH (09:19)
[2016-05-28] MEDS: ENOXAPARIN NA (PORCINE) 30 MG/0.3 ML DISP.SYRIN SQ SCH (09:23)
[2016-05-28] MEDS: METOPROLOL SUCCINATE 100 MG TAB.SR.24H (FP) PO SCH ×2 (09:23→21:12)
[2016-05-28] MEDS: FENOFIBRIC ACID 45 MG CAP PO SCH (09:24)
[2016-05-28] MEDS: SERTRALINE HCL 50 MG TABLET (FP) PO SCH (09:24)
[2016-05-28 09:35] LABS: BASOPHIL 0.8 % (0-2.0); MCH 27.9 pg (25.7-33.7); MCHC 31.1 g/dl (32.0-35.9); MEAN CELL VOLUME 89.9 fl (80-96); MEAN PLT VOLUME 8.6 fl (7.5-11.1); NEUTROPHILS 74.5 % (42.8-82.8); PLATELET COUNT 244 K/MM3 (134-434); RDW 16.3 % (11.9-15.9)
[2016-05-28 10:02] LABS: BILIRUBIN,TOTAL 0.4 mg/dL (0.2-1.0); CALCIUM 9.5 mg/dL (8.5-10.1); CREATININE 6.5 mg/dL (0.7-1.3)
--- NOTE | 2016-05-28 11:09 | PN ---
Progress Note (short form) - Note Progress Note: Resting in NAD. No acute events overnight. Overall appears improved. Intake & Output 05/25/16 05/26/16 05/27/16 05/28/16 23:59 23:59 23:59 23:59 Intake Total 540 560 550 975 Output Total 20 Balance 540 540 550 975 Weight 199 lb 1.239 oz 198 lb 199 lb 198 lb 5 oz Last Vital Signs Temp Pulse Resp BP Pulse Ox 96.8 F L 96 H 20 100/60 98 05/28/16 09:44 05/28/16 09:44 05/28/16 09:44 05/28/16 09:44 05/28/16 09:00 Active Medications Atorvastatin Calcium (Lipitor -) 10 mg PO HS [facility] Last Admin: 05/27/16 21:59 Dose: Not Given Enoxaparin Sodium (Lovenox -) 30 mg SQ DAILY [facility] Last Admin: 05/28/16 09:23 Dose: Not Given Fenofibric Acid (Trilipix -) 45 mg PO DAILY [facility] Last Admin: 05/28/16 09:24 Dose: Not Given Furosemide (Lasix -) 80 mg PO BIDLASIX [facility] Last Admin: 05/28/16 06:00 Dose: 80 mg Ceftriaxone Sodium (Rocephin 1gm Ivpb (Pre-Docked)) 50 mls @ 100 mls/hr IVPB DAILY [facility] Last Admin: 05/28/16 09:19 Dose: 100 mls/hr Metoprolol Succinate (Toprol Xl -) 200 mg PO BID [facility] Last Admin: 05/28/16 09:23 Dose: Not Given Sertraline HCl (Zoloft -) 50 mg PO DAILY [facility] Last Admin: 05/28/16 09:24 Dose: Not Given Sevelamer Carbonate (Renvela Powder Packet -) 2.4 gm PO TIDCM [facility] Last Admin: 05/28/16 08:08 Dose: Not Given Sitagliptin Phosphate (Januvia -) 25 mg PO ACBK [facility] Last Admin: 05/28/16 06:00 Dose: Not Given Sodium Thiosulfate (Sodium Thiosulfate) 25 gm IV MoWeFr@1300 [facility] Last Admin: 05/26/16 20:50 Dose: 25 gm Tramadol HCl (Ultram -) 50 mg PO Q6H PRN PRN Reason: PAIN Last Admin: 05/28/16 08:21 Dose: 50 mg Constitutional: Yes: NAD Eyes: Yes: WNL HENT: Yes: WNL Neck: Yes: WNL Cardiovascular: Yes: Pulse Irregular, S1, S2 Respiratory: Yes: Diminished at the bases Gastrointestinal: Yes: Normal Bowel Sounds, Soft Extremities: Yes: Other (left foot bandaged) Edema: Yes Labs: Laboratory Results - last 24 hr 05/28/16 05/28/16 05/28/16 05:31 09:00 09:00 WBC 13.0 H RBC 3.62 L Hgb 10.1 L Hct 32.5 L MCV 89.9 MCHC 31.1 L RDW 16.3 H Plt Count 244 MPV 8.6 Neutrophils % 74.5 Lymphocytes % 12.2 Monocytes % 10.5 H Eosinophils % 2.0 Basophils % 0.8 Sodium 137 Potassium 4.4 Chloride 95 L Carbon Dioxide 24 Anion Gap 18 H BUN 52 H D Creatinine 6.5 H D Creat Clearance w eGFR 8.73 POC Glucometer 92 Random Glucose 76 D Calcium 9.5 Total Bilirubin 0.4 AST 22 D ALT 19 D Alkaline Phosphatase 64 Total Protein 7.0 Albumin 3.0 L Problem List - Problems (1) Afib Code(s): I48.91 - UNSPECIFIED ATRIAL FIBRILLATION (3) CHF exacerbation Code(s): I50.9 - HEART FAILURE, UNSPECIFIED Qualifiers: Congestive heart failure type: unspecified congestive heart failure type Qualified Code(s): I50.9 - Heart failure, unspecified (4) Cellulitis and abscess of foot Code(s): L03.119 - CELLULITIS OF UNSPECIFIED PART OF LIMB L02.619 - CUTANEOUS ABSCESS OF UNSPECIFIED FOOT (5) Microangiopathy, 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 (6) Anemia Code(s): D64.9 - ANEMIA, UNSPECIFIED Qualifiers: Anemia type: unspecified type Qualified Code(s): D64.9 - Anemia, unspecified (7) Atrial fibrillation with RVR Code(s): I48.91 - UNSPECIFIED ATRIAL FIBRILLATION (8) Bilateral shoulder pain Code(s): M25.511 - PAIN IN RIGHT SHOULDER M25.512 - PAIN IN LEFT SHOULDER (9) Cellulitis of foot Code(s): L03.119 - CELLULITIS OF UNSPECIFIED PART OF LIMB (10) Dyspnea on exertion Code(s): R06.09 - OTHER FORMS OF DYSPNEA (11) HTN (hypertension) Code(s): I10 - ESSENTIAL (PRIMARY) HYPERTENSION (12) Atrial flutter Code(s): I48.92 - UNSPECIFIED ATRIAL FLUTTER (13) CAD, multiple vessel Code(s): I25.10 - ATHSCL HEART DISEASE OF [place] CORONARY ARTERY W/O ANG PCTRS (14) Congestive heart failure Code(s): I50.9 - HEART FAILURE, UNSPECIFIED Qualifiers: Congestive heart failure type: systolic Congestive heart failure chronicity: acute on chronic Qualified Code(s): I50.23 - Acute on chronic systolic (congestive) heart failure (15) Diabetes Code(s): E11.9 - TYPE 2 DIABETES MELLITUS WITHOUT COMPLICATIONS (16) End stage renal disease Code(s): N18.6 - END STAGE RENAL DISEASE Assessment/Plan IMP DYSPNEA MULTIPLE FACTORS,CHF,COPD improved PULMONARY HTN ASHD S/P CABG ESRD ON HD AFIB HTN DM PVD CELLULITIS LIKELY OSAS PLAN HD PER RENAL ABX PER ID INHALED BRONCHODILATORS SUPPLEMENTAL O2 PFTS OUTPATIENT SLEEP STUDIES OUTPATIENT DR PARK
[2016-05-28] MEDS ORDERED: morphine SULFATE IMMEDIATE RELEASE 30 MG TAB PO PRN (11:17)
--- NOTE | 2016-05-28 13:16 | PN ---
Mental Health Exam - Mental Status Exam Alert and Oriented to: Time, Place, Person Cognitive Function: Grossly Intact Patient Appearance: Unkempt Mood: Angry (about 7/10 pain. ), Expansive (in speech), Irritable (easily irritated if not getting his way. ) Affect: Mood Congruent Patient Behavior: Suspicious ("who are you?'), Resitive to Care ("i want it my way") Speech Pattern: Clear, Pressured (mildly.) Voice Loudness: Mildly Loud Thought Process: Intact, Goal Oriented Thought Disorder: Not Present Hallucinations: None Suicidal Ideation: None Homicidal Ideation: None, Denies, No Plan Insight/Judgement: Fair Sleep: Poorly (1 hour a night. ) Appetite: Fair Muscle strength/Tone: Normal (abble to walk 30 steps to his [place]. ) Gait/Station: Deferred
--- NOTE | 2016-05-28 13:29 | PN ---
Progress Note, Physician Chief Complaint: "i want what i want when i want it", "i t has to be my way". "I sleep only an hour or 2 at night" - Current Medication List Current Medications: Active Medications Atorvastatin Calcium (Lipitor -) 10 mg PO HS [facility] Last Admin: 05/27/16 21:59 Dose: Not Given Enoxaparin Sodium (Lovenox -) 30 mg SQ DAILY [facility] Last Admin: 05/28/16 09:23 Dose: Not Given Fenofibric Acid (Trilipix -) 45 mg PO DAILY [facility] Last Admin: 05/28/16 09:24 Dose: Not Given Furosemide (Lasix -) 80 mg PO BIDLASIX [facility] Last Admin: 05/28/16 06:00 Dose: 80 mg Ceftriaxone Sodium (Rocephin 1gm Ivpb (Pre-Docked)) 50 mls @ 100 mls/hr IVPB DAILY [facility] Last Admin: 05/28/16 09:19 Dose: 100 mls/hr Metoprolol Succinate (Toprol Xl -) 200 mg PO BID [facility] Last Admin: 05/28/16 09:23 Dose: Not Given Morphine Sulfate (Msir -) 15 mg PO Q8H PRN PRN Reason: PAIN Last Admin: 05/28/16 12:50 Dose: 15 mg Sertraline HCl (Zoloft -) 50 mg PO DAILY [facility] Last Admin: 05/28/16 09:24 Dose: Not Given Sevelamer Carbonate (Renvela Powder Packet -) 2.4 gm PO TIDCM [facility] Last Admin: 05/28/16 11:40 Dose: Not Given Sitagliptin Phosphate (Januvia -) 25 mg PO ACBK [facility] Last Admin: 05/28/16 06:00 Dose: Not Given Sodium Thiosulfate (Sodium Thiosulfate) 25 gm IV MoWeFr@1300 [facility] Last Admin: 05/26/16 20:50 Dose: 25 gm - Objective Vital Signs: Vital Signs Temperature 96.8 F L 05/28/16 09:44 Pulse Rate 96 H 05/28/16 09:44 Respiratory Rate 20 05/28/16 09:44 Blood Pressure 100/60 05/28/16 09:44 O2 Sat by Pulse Oximetry (%) 98 05/28/16 09:00 Labs: CBC, BMP 05/28/16 09:00 05/28/16 09:00 INR, PTT INR 1.59 (0.82-1.09) H 05/11/16 13:20 Assessment/Plan Patient is 60 yo male flanked by his and HCP of 23 years relationship. Client is no psychiatric history or admissions except started on zoloft 50 mg some months ago. Client stated he is a "yellS" confirmed by his . Incidents with police without charges. Medical hx of foot ulcer, Dyspnoea, HTN, CHF, DM, end stage renal disease on dialysis, Anaemia, Hyperlipideamia. Client needs procedures explained, he often withholds consent if he feels that their is too much change, resistive to being out of routine. Zoloft is safe in HD not removed by dialysis, and in caidiovascular disease or angina, recommend to continue same.
--- NOTE | 2016-05-28 16:22 | PN ---
Progress Note (short form) - Note Progress Note: Chief Complaint: foot wound, afib History of Present Illness: sob improved, no orthopnea no cp, palpit, dizziness, loc Significant pain at site of thigh calcification. also with new painful digital ulcers and color changes to finger tips that sound consistent with raynaud's ex cigs Current Medications Atorvastatin Calcium (Lipitor -) 10 mg PO HS [facility] Last Admin: 05/27/16 21:59 Dose: Not Given Enoxaparin Sodium (Lovenox -) 30 mg SQ DAILY [facility] Last Admin: 05/28/16 09:23 Dose: Not Given Fenofibric Acid (Trilipix -) 45 mg PO DAILY [facility] Last Admin: 05/28/16 09:24 Dose: Not Given Furosemide (Lasix -) 80 mg PO BIDLASIX [facility] Last Admin: 05/28/16 14:46 Dose: 80 mg Ceftriaxone Sodium (Rocephin 1gm Ivpb (Pre-Docked)) 50 mls @ 100 mls/hr IVPB DAILY [facility] Last Admin: 05/28/16 09:19 Dose: 100 mls/hr Metoprolol Succinate (Toprol Xl -) 200 mg PO BID [facility] Last Admin: 05/28/16 09:23 Dose: Not Given Morphine Sulfate (Msir -) 15 mg PO Q8H PRN PRN Reason: PAIN Last Admin: 05/28/16 12:50 Dose: 15 mg Sertraline HCl (Zoloft -) 50 mg PO DAILY [facility] Last Admin: 05/28/16 09:24 Dose: Not Given Sevelamer Carbonate (Renvela Powder Packet -) 2.4 gm PO TIDCM [facility] Last Admin: 05/28/16 11:40 Dose: Not Given Sitagliptin Phosphate (Januvia -) 25 mg PO ACBK [facility] Last Admin: 05/28/16 06:00 Dose: Not Given Sodium Thiosulfate (Sodium Thiosulfate) 25 gm IV MoWeFr@1300 [facility] Last Admin: 05/26/16 20:50 Dose: 25 gm Vital Signs - 24 hr 05/27/16 05/28/16 05/28/16 21:00 06:46 09:00 Temperature 98.5 F Pulse Rate 95 H 99 H Respiratory 20 21 Rate Blood Pressure 134/57 117/71 O2 Sat by Pulse 97 98 Oximetry (%) 05/28/16 09:44 Temperature 96.8 F L Pulse Rate 96 H Respiratory 20 Rate Blood Pressure 100/60 O2 Sat by Pulse Oximetry (%) Intake & Output 05/26/16 05/27/16 05/28/16 05/29/16 07:59 07:59 07:59 07:59 Intake Total 521 508 8733 975 Output Total 20 Balance 915 573 0717 975 Weight 198 lb 199 lb 198 lb 5 oz Constitutional: Yes: No Distress, Calm Eyes: No: Sclera Icterus HENT: No: Nasal Congestion Cardiovascular: Yes: Pulse Irregular, S1, S2, Other (PMI non diplaced). No: JVD , Gallop, Murmur Respiratory: Yes: cta bl nl eff. No: Accessory Muscle Use, Rales, Wheezes Gastrointestinal: Yes: Normal Bowel Sounds, Soft. No: Tenderness Musculoskeletal: Yes: Other (No kyphosis) Extremities: No: Cold. tender digital ulcers with purple discoloration. bruising, erythema around right thigh induration Edema: Yes (trace pretib) Integumentary: No: Jaundice diaphoresis Neurological: Yes: Alert, Oriented (x3) Psychiatric: No: Agitated Labs: CBC, BMP 05/28/16 09:00 05/28/16 09:00 echo 09/2015: mod lve, mild-mod dec lvef, global HK, nl rv, mod-sev mr, sev tr, marixa, nl rvsp echo 03/2016: mild lve, mod dec lvef, ant HK, nl rv size, marixa, mild mr, mod tr, rvsp 40-50 a/p: 60 m hx htn, hld, dm, cabg (04/2006), ESRD, afib/flutter, syst chf, esrd on HD, here with infected foot wound chronic syst chf: -significant sob with little activity and orthopnea earlier this admit -attempting incr frequency of HD/UF here, per d/w dr mcghee -cont po lasix 80 bid and HD for vol management (started 05/12) -recent echo 03/2016 here similar to 09/2015, shows mod reduced lvef--? etiology ( ? if EF already down at time of dx of CAD and CABG) -need accurate assessment of AF rate control (r/o tachy-CMP) and burden ( paroxysmal) as outpt -has been getting near-daily HD/UF -05/20: overall wt trend here 213-->202 -however remains with severe orthopnea -doubt copd sx (pt given trial of nebs and says was no better) -CXR without evidence of pulm congestion, however suspect he is still hiding volume and filling pressures are up -d/w'd renal: plan to continue frequent UF until objective evidence of vol depletion -05/21: s/p UF yesterday; wt down 202 to 201; -05/22: no UF yesterday; wt up 201 to 204 this am--now 199 s/p UF today -05/23-05/27: Orthopnea improved, wt stable. con't home regimen of 80 mg po bid and volume management per renal/HD. -needs outpt PFTs/pulm eval (continuing high dose BB for now, no wheezing) -holding diovan 80 qd, hydralazine 25 bid, and isordil 10 qd given low bp possibly from sepsis, and low bp's at HD at home which may limit attempts at aggressive fluid removal here -reassess later once volume status better, if bp stable afib/flutter: -initially not well controlled--HRs to 140s at times. (cannot use dilt with chronic syst chf, low dose digoxin (HD pt) hi risk toxicity. 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 if tachy contributing to LV dysfunction and/or hi intracardiac filling pressures -05/20 incr'd toprol 200 bid (prefer not to hold it on HD days, if bp can tolerate) -05/22-05/26: Overall rate controlled, cont same, can dc tele -if remains with frequent tachy, can try change metoprolol to propranolol -avoiding dig given HD pt with risks of fluctuating levels -cont eliquis 2.5 bid (presyncopal consistently following eliquis 5mg doses at home--???)--hope to incr later once chf status and bp drops from HD are stabilized ESRD -cont hd per renal -fluid removal as disc'd above htn: -bp's on low side here, possibly due to infection/cellulitis so holding diovan, nitrate, hydralazine for now, resume when bp stable -LH/presyncope episodes at home, ? (highly unusual) med effect (eliquis 5mg)-- suspect more likely related to hi chf med burden with intravasc fluid shifts from HD hld: -cont home statin cad s/p cabg: -ce's neg x2, EKG without ischemic changes here, no suspected angina sx's -recent echo w/o sig change from prior -cont statin, bb, ac le cellulitis, possible gangrene, PAD: -s/p b/l common iliac stenting 05/26 -plans per vascular surgery, ID -resume eliquis if no further procedures planned digital ulcers - ddx from vasospasm/vasculitis vs. endocardiits. Would get blood cultures with next HD session. rheumatologic work up per pmd.
--- NOTE | 2016-05-28 20:08 | PN ---
Progress Note, Physician History of Present Illness: After threatening to leave last night pt did stay once he got into new assigned hospital room - Current Medication List Current Medications: Active Medications Atorvastatin Calcium (Lipitor -) 10 mg PO HS [facility] Last Admin: 05/27/16 21:59 Dose: Not Given Enoxaparin Sodium (Lovenox -) 30 mg SQ DAILY [facility] Last Admin: 05/28/16 09:23 Dose: Not Given Fenofibric Acid (Trilipix -) 45 mg PO DAILY [facility] Last Admin: 05/28/16 09:24 Dose: Not Given Furosemide (Lasix -) 80 mg PO BIDLASIX [facility] Last Admin: 05/28/16 14:46 Dose: 80 mg Ceftriaxone Sodium (Rocephin 1gm Ivpb (Pre-Docked)) 50 mls @ 100 mls/hr IVPB DAILY [facility] Last Admin: 05/28/16 09:19 Dose: 100 mls/hr Metoprolol Succinate (Toprol Xl -) 200 mg PO BID [facility] Last Admin: 05/28/16 09:23 Dose: Not Given Morphine Sulfate (Msir -) 15 mg PO Q8H PRN PRN Reason: PAIN Last Admin: 05/28/16 12:50 Dose: 15 mg Sertraline HCl (Zoloft -) 50 mg PO DAILY [facility] Last Admin: 05/28/16 09:24 Dose: Not Given Sevelamer Carbonate (Renvela Powder Packet -) 2.4 gm PO TIDCM [facility] Last Admin: 05/28/16 17:11 Dose: Not Given Sitagliptin Phosphate (Januvia -) 25 mg PO ACBK [facility] Last Admin: 05/28/16 06:00 Dose: Not Given Sodium Thiosulfate (Sodium Thiosulfate) 25 gm IV MoWeFr@1300 [facility] Last Admin: 05/26/16 20:50 Dose: 25 gm - Objective Vital Signs: Vital Signs Temperature 96.8 F L 05/28/16 09:44 Pulse Rate 108 H 05/28/16 17:35 Respiratory Rate 20 05/28/16 17:35 Blood Pressure 135/62 05/28/16 17:35 O2 Sat by Pulse Oximetry (%) 98 05/28/16 09:00 Constitutional: Yes: Well Nourished Neck: Yes: Supple Cardiovascular: Yes: Tachycardia Respiratory: Yes: WNL, Regular, CTA Bilaterally Gastrointestinal: Yes: WNL, Normal Bowel Sounds, Soft, Abdomen, Obese Extremities: Yes: Other ((+) lt foot in bandages) Labs: CBC, BMP 05/28/16 09:00 05/28/16 09:00 INR, PTT INR 1.59 (0.82-1.09) H 05/11/16 13:20 Problem List - Problems (1) Cellulitis of foot Assessment/Plan: Chronic lt foot ulcer S/P B/L stenting of common iliacs Cont IV ceftriaxone Pt seen by pain management and is now on PO morphine WBC slightly increased today Cont to trend wbc Code(s): L03.119 - CELLULITIS OF UNSPECIFIED PART OF LIMB (2) Dyspnea Assessment/Plan: Pt unable to lie flat Multifactorial Due to chf/volume overload/COPD/sleep apnea Out pt PFT's/sleep study Cont inhalers Volume status may be fluctuating with dialysis Cont lasix BID Code(s): R06.00 - DYSPNEA, UNSPECIFIED (3) Afib Assessment/Plan: Heart rate slightly tachy in 90's Cont metoprolol Restart eliquis in am Code(s): I48.91 - UNSPECIFIED ATRIAL FIBRILLATION (4) End stage renal disease Assessment/Plan: Dialysis as per renal Monitor electrolytes Cont renvela Code(s): N18.6 - END STAGE RENAL DISEASE (5) Congestive heart failure Assessment/Plan: Chronic systolic heart failure Cont po lasix bid Monitor electrolytes Code(s): I50.9 - HEART FAILURE, UNSPECIFIED Qualifiers: Congestive heart failure type: systolic Congestive heart failure chronicity: acute on chronic Qualified Code(s): I50.23 - Acute on chronic systolic (congestive) heart failure (6) HTN (hypertension) Assessment/Plan: BP stable Cont metoprolol Code(s): I10 - ESSENTIAL (PRIMARY) HYPERTENSION (7) Diabetes Assessment/Plan: Cont januvia Code(s): E11.9 - TYPE 2 DIABETES MELLITUS WITHOUT COMPLICATIONS (8) Anemia Code(s): D64.9 - ANEMIA, UNSPECIFIED Qualifiers: Anemia type: unspecified type Qualified Code(s): D64.9 - Anemia, unspecified (9) HLD (hyperlipidemia) Code(s): E78.5 - HYPERLIPIDEMIA, UNSPECIFIED
[2016-05-28] MEDS ORDERED: OXYCODONE/APAP 5/325MG COMBO TABLET PO PRN (20:52)
[2016-05-28] MEDS: ATORVASTATIN CA 10 MG TABLET (FP) PO SCH (21:12)
[2016-05-28] MEDS: oxyCODONE HCL 5 MG TABLET PO PRN (22:20)
[2016-05-28] MEDS: ACETAMINOPHEN 325 MG TABLET (FP) PO PRN (22:20)
[2016-05-28] MEDS: APIXABAN 2.5 MG TABLET PO SCH (22:31)
[2016-05-29] MEDS ORDERED: PT OWN MED DRAWER 7, Y5N ONE ×4 (06:12→21:30)
[2016-05-29] MEDS: FUROSEMIDE 40 MG TABLET (FP) PO SCH ×2 (06:14→14:22)
[2016-05-29] MEDS ORDERED: EPOETIN ALFA 2,000 UNITS/1 ML VIAL IVPUSH ONE (08:00)
[2016-05-29] MEDS: SEVELAMER CARBONATE 2.4 GM POWDER PACKET PO SCH ×3 (08:00→18:30)
[2016-05-29] MEDS: sitaGLIPtin PHOSPHATE 25 MG TABLET (FP) PO SCH (08:00)
[2016-05-29 08:47] LABS: MCH 28.3 pg (25.7-33.7); MCHC 31.9 g/dl (32.0-35.9); MEAN CELL VOLUME 88.8 fl (80-96); MEAN PLT VOLUME 8.9 fl (7.5-11.1); PLATELET COUNT 243 K/MM3 (134-434); RDW 16.4 % (11.9-15.9); WHITE BLOOD COUNT 10.8 K/mm3 (4.0-10.0)
[2016-05-29 08:56] LABS: ALBUMIN 2.9 g/dl (3.4-5.0); BILIRUBIN,TOTAL 0.4 mg/dL (0.2-1.0); CALCIUM 9.3 mg/dL (8.5-10.1); CREATININE 7.3 mg/dL (0.7-1.3); TOT PROT 6.6 g/dl (6.4-8.2)
--- NOTE | 2016-05-29 09:17 | PN ---
Progress Note, Physician - Current Medication List Current Medications: Active Medications Acetaminophen (Tylenol -) 650 mg PO Q8H PRN PRN Reason: PAIN Last Admin: 05/28/16 22:20 Dose: 650 mg Apixaban (Eliquis -) 2.5 mg PO BID [facility] Last Admin: 05/28/16 22:31 Dose: 2.5 mg Atorvastatin Calcium (Lipitor -) 10 mg PO HS [facility] Last Admin: 05/28/16 21:12 Dose: 10 mg Fenofibric Acid (Trilipix -) 45 mg PO DAILY [facility] Last Admin: 05/28/16 09:24 Dose: Not Given Furosemide (Lasix -) 80 mg PO BIDLASIX [facility] Last Admin: 05/29/16 06:14 Dose: 80 mg Ceftriaxone Sodium (Rocephin 1gm Ivpb (Pre-Docked)) 50 mls @ 100 mls/hr IVPB DAILY [facility] Last Admin: 05/28/16 09:19 Dose: 100 mls/hr Metoprolol Succinate (Toprol Xl -) 200 mg PO BID [facility] Last Admin: 05/28/16 21:12 Dose: 200 mg Oxycodone HCl (Roxicodone -) 10 mg PO Q8H PRN PRN Reason: PAIN Last Admin: 05/28/16 22:20 Dose: 10 mg Sertraline HCl (Zoloft -) 50 mg PO DAILY [facility] Last Admin: 05/28/16 09:24 Dose: Not Given Sevelamer Carbonate (Renvela Powder Packet -) 2.4 gm PO TIDCM [facility] Last Admin: 05/29/16 08:00 Dose: Not Given Sitagliptin Phosphate (Januvia -) 25 mg PO ACBK [facility] Last Admin: 05/29/16 08:00 Dose: Not Given Sodium Thiosulfate (Sodium Thiosulfate) 25 gm IV MoWeFr@1300 [facility] Last Admin: 05/26/16 20:50 Dose: 25 gm - Objective Vital Signs: Vital Signs Temperature 97.4 F L 05/29/16 06:00 Pulse Rate 89 05/29/16 06:00 Respiratory Rate 20 05/28/16 21:17 Blood Pressure 129/72 05/29/16 06:00 O2 Sat by Pulse Oximetry (%) 98 05/28/16 22:00 Labs: CBC, BMP 05/29/16 07:30 05/29/16 06:00 INR, PTT INR 1.59 (0.82-1.09) H 05/11/16 13:20 Assessment/Plan echo 09/2015: mod lve, mild-mod dec lvef, global HK, nl rv, mod-sev mr, sev tr, marixa, nl rvsp echo 03/2016: mild lve, mod dec lvef, ant HK, nl rv size, marixa, mild mr, mod tr, rvsp 40-50 a/p: 60 m hx htn, hld, dm, cabg (04/2006), ESRD, afib/flutter, syst chf, esrd on HD, here with infected foot wound chronic syst chf: -recent echo 03/2016 here similar to 09/2015, shows mod reduced lvef--? etiology ( ? if EF already down at time of dx of CAD and CABG) -received near-daily HD/UF for ongoing orthopnea without alternative explanation --likely hi filling pressures despite clear cxr -continuing home lasix 80 mg po bid and volume management via UF per renal team -needs outpt PFTs/pulm eval (continuing high dose BB for now, no wheezing) -need accurate assessment of AF rate control (r/o tachy-CMP) and burden ( paroxysmal) as outpt -low bp's during HD at times with presyncope--holding diovan 80 bid, hydralazine 25 bid, and isordil 10 qd here -reassess in office once volume status improved, if bp's stable, can try add back ARB afib/flutter: -initially not well controlled--HRs to 140s at times. (cannot use dilt with chronic syst chf, low dose digoxin (HD pt) hi risk toxicity. 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 if tachy contributing to LV dysfunction and/or hi intracardiac filling pressures--plan outpt monitor as above -toprol incrementally incr'd here to 200 bid for rapid HRs (to 130s) on tele -HR remained controlled on this regimen, likely also due to improved chf volume status -avoiding dig given HD pt with risks of fluctuating levels -cont eliquis 2.5 bid (presyncopal consistently following eliquis 5mg doses at home--???)--hope to incr later once chf status and bp drops from HD are stabilized ESRD -cont HD/UF per renal htn: -bp's on low side here and during HD at home, with LH/presyncope episodes at home, ? (highly unusual) med effect (eliquis 5mg)--suspect more likely related to hi chf med burden with intravasc fluid shifts from HD -med mgmt as disc'd above hld: -cont home statin cad s/p cabg: -ce's neg x2, EKG without ischemic changes here, no suspected angina sx's -recent echo w/o sig change from prior -cont statin, bb, ac le cellulitis, possible gangrene, PAD: -s/p b/l common iliac stenting 05/26 -plans per vascular surgery, ID -resume eliquis if no further procedures planned digital ulcers - ? vasospasm (reynaud's), ? vasculitis, ? endocarditis. - Would get blood cultures with next HD session. - rheumatologic/other workup per primary team
[2016-05-29 11:14] LABS: BASOPHIL 1.4 % (0-2.0); EOSINOPHIL 2.4 % (0-4.5); MCH 28.9 pg (25.7-33.7); MCHC 32.6 g/dl (32.0-35.9); MEAN CELL VOLUME 88.6 fl (80-96); MEAN PLT VOLUME 8.7 fl (7.5-11.1); NEUTROPHILS 71.1 % (42.8-82.8); PLATELET COUNT 235 K/MM3 (134-434); RDW 16.3 % (11.9-15.9); WHITE BLOOD COUNT 10.9 K/mm3 (4.0-10.0)
[2016-05-29] MEDS: METOPROLOL SUCCINATE 100 MG TAB.SR.24H (FP) PO SCH ×2 (11:48→21:32)
[2016-05-29] MEDS: FENOFIBRIC ACID 45 MG CAP PO SCH (11:48)
[2016-05-29] MEDS: SERTRALINE HCL 50 MG TABLET (FP) PO SCH (11:49)
[2016-05-29] MEDS: CEFTRIAXONE 1G/50 ML IVPB SCH (11:49)
[2016-05-29] MEDS: APIXABAN 2.5 MG TABLET PO SCH ×2 (11:49→21:32)
[2016-05-29] MEDS: oxyCODONE HCL 5 MG TABLET PO PRN ×2 (11:49→21:32)
[2016-05-29] MEDS: ACETAMINOPHEN 325 MG TABLET (FP) PO PRN ×2 (11:59→21:33)
--- NOTE | 2016-05-29 12:09 | PN ---
Progress Note, Physician History of Present Illness: C/O R medial thigh pain (site of calciphylaxis) No c/o L foot pain S/P common iliac stents Afebrile WBC slightly elevated - Current Medication List Current Medications: Active Medications Acetaminophen (Tylenol -) 650 mg PO Q8H PRN PRN Reason: PAIN Last Admin: 05/29/16 11:59 Dose: 650 mg Apixaban (Eliquis -) 2.5 mg PO BID [facility] Last Admin: 05/29/16 11:49 Dose: 2.5 mg Atorvastatin Calcium (Lipitor -) 10 mg PO HS [facility] Last Admin: 05/28/16 21:12 Dose: 10 mg Fenofibric Acid (Trilipix -) 45 mg PO DAILY [facility] Last Admin: 05/29/16 11:48 Dose: 45 mg Furosemide (Lasix -) 80 mg PO BIDLASIX [facility] Last Admin: 05/29/16 06:14 Dose: 80 mg Ceftriaxone Sodium (Rocephin 1gm Ivpb (Pre-Docked)) 50 mls @ 100 mls/hr IVPB DAILY [facility] Last Admin: 05/29/16 11:49 Dose: 100 mls/hr Metoprolol Succinate (Toprol Xl -) 200 mg PO BID [facility] Last Admin: 05/29/16 11:48 Dose: 200 mg Oxycodone HCl (Roxicodone -) 10 mg PO Q8H PRN PRN Reason: PAIN Last Admin: 05/29/16 11:49 Dose: 10 mg Sertraline HCl (Zoloft -) 50 mg PO DAILY [facility] Last Admin: 05/29/16 11:49 Dose: 50 mg Sevelamer Carbonate (Renvela Powder Packet -) 2.4 gm PO TIDCM [facility] Last Admin: 05/29/16 12:01 Dose: Not Given Sitagliptin Phosphate (Januvia -) 25 mg PO ACBK [facility] Last Admin: 05/29/16 08:00 Dose: Not Given Sodium Thiosulfate (Sodium Thiosulfate) 25 gm IV MoWeFr@1300 [facility] Last Admin: 05/26/16 20:50 Dose: 25 gm - Objective Vital Signs: Vital Signs Temperature 97.8 F 05/29/16 11:29 Pulse Rate 93 H 05/29/16 11:29 Respiratory Rate 20 05/29/16 11:29 Blood Pressure 115/69 05/29/16 11:29 O2 Sat by Pulse Oximetry (%) 98 05/28/16 22:00 Constitutional: Yes: No Distress Cardiovascular: Yes: Regular Rate and Rhythm, S1, S2 Respiratory: Yes: CTA Bilaterally Gastrointestinal: Yes: Normal Bowel Sounds, Soft. No: Tenderness Extremities: Yes: Other (L LE swelling and hyperemia resolved + chronic venous stasis dry ulcers ,great toe + dry gangrene distal 4th toe) Labs: CBC, BMP 05/29/16 10:00 05/29/16 06:00 INR, PTT INR 1.59 (0.82-1.09) H 05/11/16 13:20 Assessment/Plan Cellulitis LE- resolved Non-healing great toe ulcers- improved Peripheral vascular disease s/p common iliac stents Gangrene L 4th toe ESRD Chronic venous stasis dermatitis Discontinue antibiotics Local wound care
--- NOTE | 2016-05-29 12:55 | PN ---
Progress Note (short form) - Note Progress Note: No acute events overnight. Right thigh discomfort. No CP or SOB. Intake & Output 05/26/16 05/27/16 05/28/16 05/29/16 23:59 23:59 23:59 23:59 Intake Total 227 095 0301 Output Total 20 Balance 916 774 6987 Weight 198 lb 199 lb 198 lb 5 oz 207 lb 12.8 oz Last Vital Signs Temp Pulse Resp BP Pulse Ox 97.8 F 93 H 20 115/69 97 05/29/16 11:29 05/29/16 11:29 05/29/16 11:29 05/29/16 11:29 05/29/16 12:22 Active Medications Acetaminophen (Tylenol -) 650 mg PO Q8H PRN PRN Reason: PAIN Last Admin: 05/29/16 11:59 Dose: 650 mg Apixaban (Eliquis -) 2.5 mg PO BID [facility] Last Admin: 05/29/16 11:49 Dose: 2.5 mg Atorvastatin Calcium (Lipitor -) 10 mg PO HS [facility] Last Admin: 05/28/16 21:12 Dose: 10 mg Fenofibric Acid (Trilipix -) 45 mg PO DAILY [facility] Last Admin: 05/29/16 11:48 Dose: 45 mg Furosemide (Lasix -) 80 mg PO BIDLASIX [facility] Last Admin: 05/29/16 06:14 Dose: 80 mg Metoprolol Succinate (Toprol Xl -) 200 mg PO BID [facility] Last Admin: 05/29/16 11:48 Dose: 200 mg Oxycodone HCl (Roxicodone -) 10 mg PO Q8H PRN PRN Reason: PAIN Last Admin: 05/29/16 11:49 Dose: 10 mg Sertraline HCl (Zoloft -) 50 mg PO DAILY [facility] Last Admin: 05/29/16 11:49 Dose: 50 mg Sevelamer Carbonate (Renvela Powder Packet -) 2.4 gm PO TIDCM [facility] Last Admin: 05/29/16 12:01 Dose: Not Given Sitagliptin Phosphate (Januvia -) 25 mg PO ACBK [facility] Last Admin: 05/29/16 08:00 Dose: Not Given Sodium Thiosulfate (Sodium Thiosulfate) 25 gm IV MoWeFr@1300 [facility] Last Admin: 05/26/16 20:50 Dose: 25 gm Constitutional: Yes: NAD Eyes: Yes: WNL HENT: Yes: WNL Neck: Yes: WNL Cardiovascular: Yes: Pulse Irregular, S1, S2 Respiratory: Yes: Diminished at the bases Gastrointestinal: Yes: Normal Bowel Sounds, Soft Extremities: Yes: Other : bandage Edema: Yes Labs: Laboratory Results - last 24 hr 05/29/16 05/29/16 05/29/16 05:50 06:00 07:30 WBC 10.8 H RBC 3.25 L Hgb 9.2 L Hct 28.9 L MCV 88.8 MCHC 31.9 L RDW 16.4 H Plt Count 243 MPV 8.9 Neutrophils % Lymphocytes % Monocytes % Eosinophils % Basophils % Sodium 134 L Potassium 4.6 Chloride 92 L Carbon Dioxide 25 Anion Gap 17 H BUN 61 H Creatinine 7.3 H Creat Clearance w eGFR 7.64 POC Glucometer 79 Random Glucose 69 L Calcium 9.3 Phosphorus 6.0 H Total Bilirubin 0.4 AST 28 D ALT 21 Alkaline Phosphatase 69 Total Protein 6.6 Albumin 2.9 L 05/29/16 05/29/16 07:30 10:00 WBC 10.9 H RBC 3.19 L Hgb 9.2 L Hct 28.3 L MCV 88.6 MCHC 32.6 RDW 16.3 H Plt Count 235 MPV 8.7 Neutrophils % 71.1 Lymphocytes % 14.3 Monocytes % 10.8 H Eosinophils % 2.4 Basophils % 1.4 Sodium Potassium Chloride Carbon Dioxide Anion Gap BUN Creatinine Creat Clearance w eGFR POC Glucometer Random Glucose Calcium Phosphorus Cancelled Total Bilirubin AST ALT Alkaline Phosphatase Total Protein Albumin Problem List - Problems (1) Afib Code(s): I48.91 - UNSPECIFIED ATRIAL FIBRILLATION (3) CHF exacerbation Code(s): I50.9 - HEART FAILURE, UNSPECIFIED Qualifiers: Congestive heart failure type: unspecified congestive heart failure type Qualified Code(s): I50.9 - Heart failure, unspecified (4) Cellulitis and abscess of foot Code(s): L03.119 - CELLULITIS OF UNSPECIFIED PART OF LIMB L02.619 - CUTANEOUS ABSCESS OF UNSPECIFIED FOOT (5) Microangiopathy, 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 (6) Anemia Code(s): D64.9 - ANEMIA, UNSPECIFIED Qualifiers: Anemia type: unspecified type Qualified Code(s): D64.9 - Anemia, unspecified (7) Atrial fibrillation with RVR Code(s): I48.91 - UNSPECIFIED ATRIAL FIBRILLATION (8) Bilateral shoulder pain Code(s): M25.511 - PAIN IN RIGHT SHOULDER M25.512 - PAIN IN LEFT SHOULDER (9) Cellulitis of foot Code(s): L03.119 - CELLULITIS OF UNSPECIFIED PART OF LIMB (10) Dyspnea on exertion Code(s): R06.09 - OTHER FORMS OF DYSPNEA (11) HTN (hypertension) Code(s): I10 - ESSENTIAL (PRIMARY) HYPERTENSION (12) Atrial flutter Code(s): I48.92 - UNSPECIFIED ATRIAL FLUTTER (13) CAD, multiple vessel Code(s): I25.10 - ATHSCL HEART DISEASE OF [place] CORONARY ARTERY W/O ANG PCTRS (14) Congestive heart failure Code(s): I50.9 - HEART FAILURE, UNSPECIFIED Qualifiers: Congestive heart failure type: systolic Congestive heart failure chronicity: acute on chronic Qualified Code(s): I50.23 - Acute on chronic systolic (congestive) heart failure (15) Diabetes Code(s): E11.9 - TYPE 2 DIABETES MELLITUS WITHOUT COMPLICATIONS (16) End stage renal disease Code(s): N18.6 - END STAGE RENAL DISEASE Assessment/Plan IMP DYSPNEA MULTIPLE FACTORS,CHF,COPD improved PULMONARY HTN ASHD S/P CABG ESRD ON HD AFIB HTN DM PVD CELLULITIS LIKELY OSAS PLAN HD PER RENAL ABX PER ID INHALED BRONCHODILATORS SUPPLEMENTAL O2 PFTS OUTPATIENT SLEEP WORKUP AN OUTPATIENT DR PARK
[2016-05-29] MEDS ORDERED: SODIUM THIOSULFATE 12.5 GM/50 ML VIAL IV SCH (13:00)
[2016-05-29] MEDS: SODIUM THIOSULFATE 12.5 GM/50 ML VIAL IV SCH (14:19)
--- NOTE | 2016-05-29 16:16 | PN ---
Progress Note (short form) - Note Progress Note: Renal Follow up for ESRD Pt seen and examined during dialysis earlier today BP 90/40 UF Goal 3.5L has pain any cyanosis in fingers Vital Signs Temperature 97.8 F 05/29/16 11:29 Pulse Rate 93 H 05/29/16 11:29 Respiratory Rate 20 05/29/16 11:29 Blood Pressure 115/69 05/29/16 11:29 O2 Sat by Pulse Oximetry (%) 97 05/29/16 12:22 Intake & Output 05/26/16 05/27/16 05/28/16 05/29/16 23:59 23:59 23:59 23:59 Intake Total 774 581 2902 120 Output Total 20 0 Balance 948 257 1737 120 Weight 198 lb 199 lb 198 lb 5 oz 207 lb 12.8 oz Gen: awake and alert CVS: RRR, No M/R Lungs: CTA, no rales or wheeze Abd: soft NT/ND Ext: Trace edema in LE. CBC, BMP 05/29/16 10:00 05/29/16 06:00 Current Medications Acetaminophen (Tylenol -) 650 mg PO Q8H PRN PRN Reason: PAIN Last Admin: 05/29/16 11:59 Dose: 650 mg Apixaban (Eliquis -) 2.5 mg PO BID [facility] Last Admin: 05/29/16 11:49 Dose: 2.5 mg Atorvastatin Calcium (Lipitor -) 10 mg PO HS [facility] Last Admin: 05/28/16 21:12 Dose: 10 mg Fenofibric Acid (Trilipix -) 45 mg PO DAILY [facility] Last Admin: 05/29/16 11:48 Dose: 45 mg Furosemide (Lasix -) 80 mg PO BIDLASIX [facility] Last Admin: 05/29/16 14:22 Dose: 80 mg Metoprolol Succinate (Toprol Xl -) 200 mg PO BID [facility] Last Admin: 05/29/16 11:48 Dose: 200 mg Oxycodone HCl (Roxicodone -) 10 mg PO Q8H PRN PRN Reason: PAIN Last Admin: 05/29/16 11:49 Dose: 10 mg Sertraline HCl (Zoloft -) 50 mg PO DAILY [facility] Last Admin: 05/29/16 11:49 Dose: 50 mg Sevelamer Carbonate (Renvela Powder Packet -) 2.4 gm PO TIDCM [facility] Last Admin: 05/29/16 12:01 Dose: Not Given Sitagliptin Phosphate (Januvia -) 25 mg PO ACBK [facility] Last Admin: 05/29/16 08:00 Dose: Not Given Sodium Thiosulfate (Sodium Thiosulfate) 25 gm IV MoWeFr@1300 [facility] Last Admin: 05/29/16 14:19 Dose: Not Given A/P 60 year old gentleman with PMhx of ESRD (recently started on dialysis), CAD s/p CABG, DM Type 2, Depression, CHF who with LE weakness s/p recent fall and wound on right foot. #ESRD on HD with fluid overload HD with 3.5 L UF today will reaccess in AM for further UF #LE wound/PVD s/p angiogram with stenting wound care ID follow for any further Abx #Suspected Caliphyalxis Continue sodium thiosulfate IVPB with dialysis 3x weekly with HD keep Ca x Phos product less then 55 Won Weiss DO
--- NOTE | 2016-05-29 18:04 | PN ---
Progress Note (short form) - Note Progress Note: Groins dry, no hematoma. Femoral pulses 2+ PT present with Doppler. Toes are still ischemic and cold. Angio did not show any occlusion of posterior tibial but flow was sluggish below knee suggesting poor runoff. Distal tibial angiogram may be needed to see if any occlusive lesion present.
[2016-05-29] MEDS: ATORVASTATIN CA 10 MG TABLET (FP) PO SCH (21:32)
--- NOTE | 2016-05-29 21:36 | PN ---
Progress Note (short form) - Note Progress Note: Chief Complaint: foot wound, afib History of Present Illness: sob improved, no orthopnea no cp, palpit, dizziness, loc. Able to ambulate down the corridor before needing to rest for leg weakness and sob. Significant pain at site of thigh calcification. also with new painful digital ulcers and color changes to finger tips that sound consistent with raynaud's ex cigs Current Medications Acetaminophen (Tylenol -) 650 mg PO Q8H PRN PRN Reason: PAIN Last Admin: 05/29/16 11:59 Dose: 650 mg Apixaban (Eliquis -) 2.5 mg PO BID [facility] Last Admin: 05/29/16 11:49 Dose: 2.5 mg Atorvastatin Calcium (Lipitor -) 10 mg PO HS [facility] Last Admin: 05/28/16 21:12 Dose: 10 mg Fenofibric Acid (Trilipix -) 45 mg PO DAILY [facility] Last Admin: 05/29/16 11:48 Dose: 45 mg Furosemide (Lasix -) 80 mg PO BIDLASIX [facility] Last Admin: 05/29/16 14:22 Dose: 80 mg Metoprolol Succinate (Toprol Xl -) 200 mg PO BID [facility] Last Admin: 05/29/16 11:48 Dose: 200 mg Oxycodone HCl (Roxicodone -) 10 mg PO Q8H PRN PRN Reason: PAIN Last Admin: 05/29/16 11:49 Dose: 10 mg Sertraline HCl (Zoloft -) 50 mg PO DAILY [facility] Last Admin: 05/29/16 11:49 Dose: 50 mg Sevelamer Carbonate (Renvela Powder Packet -) 2.4 gm PO TIDCM [facility] Last Admin: 05/29/16 18:30 Dose: Not Given Sitagliptin Phosphate (Januvia -) 25 mg PO ACBK [facility] Last Admin: 05/29/16 08:00 Dose: Not Given Sodium Thiosulfate (Sodium Thiosulfate) 25 gm IV MoWeFr@1300 [facility] Last Admin: 05/29/16 14:19 Dose: Not Given Vital Signs - 24 hr 05/28/16 05/29/16 05/29/16 22:00 06:00 07:25 Temperature 97.4 F L 98.2 F Pulse Rate 89 98 H Respiratory 18 Rate Blood Pressure 129/72 124/62 O2 Sat by Pulse 98 Oximetry (%) 05/29/16 05/29/16 05/29/16 07:30 08:00 08:30 Temperature Pulse Rate 91 H 62 78 Respiratory 18 18 18 Rate Blood Pressure 127/67 124/61 110/40 O2 Sat by Pulse Oximetry (%) 05/29/16 05/29/16 05/29/16 09:00 09:30 10:00 Temperature Pulse Rate 80 83 95 H Respiratory 18 18 18 Rate Blood Pressure 106/52 92/58 106/58 O2 Sat by Pulse Oximetry (%) 05/29/16 05/29/16 05/29/16 10:30 11:00 11:20 Temperature Pulse Rate 88 92 H 90 Respiratory 18 18 18 Rate Blood Pressure 112/62 90/48 120/52 O2 Sat by Pulse Oximetry (%) 05/29/16 05/29/16 05/29/16 11:29 12:22 17:58 Temperature 97.8 F 97.1 F L Pulse Rate 93 H 87 Respiratory 20 19 Rate Blood Pressure 115/69 122/50 O2 Sat by Pulse 97 Oximetry (%) 05/29/16 20:44 Temperature Pulse Rate Respiratory 19 Rate Blood Pressure O2 Sat by Pulse 97 Oximetry (%) Intake & Output 05/27/16 05/28/16 05/29/16 05/30/16 07:59 07:59 07:59 07:59 Intake Total 470 1050 1175 120 Output Total 20 0 Balance 450 1050 1175 120 Weight 199 lb 198 lb 5 oz 207 lb 12.8 oz Constitutional: Yes: No Distress, Calm Eyes: No: Sclera Icterus HENT: No: Nasal Congestion Cardiovascular: Yes: Pulse Irregular, S1, S2, Other (PMI non diplaced). No: JVD , Gallop, Murmur Respiratory: Yes: cta bl nl eff. No: Accessory Muscle Use, Rales, Wheezes Gastrointestinal: Yes: Normal Bowel Sounds, Soft. No: Tenderness Musculoskeletal: Yes: Other (No kyphosis) Extremities: No: Cold. tender digital ulcers with purple discoloration. bruising, erythema around right thigh induration Edema: Yes (trace pretib) Integumentary: No: Jaundice diaphoresis Neurological: Yes: Alert, Oriented (x3) Psychiatric: No: Agitated Labs: CBC, BMP 05/29/16 10:00 05/29/16 06:00 echo 09/2015: mod lve, mild-mod dec lvef, global HK, nl rv, mod-sev mr, sev tr, marixa, nl rvsp echo 03/2016: mild lve, mod dec lvef, ant HK, nl rv size, marixa, mild mr, mod tr, rvsp 40-50 a/p: 60 m hx htn, hld, dm, cabg (04/2006), ESRD, afib/flutter, syst chf, esrd on HD, here with infected foot wound chronic syst chf: -significant sob with little activity and orthopnea earlier this admit -attempting incr frequency of HD/UF here, per d/w dr mcghee -cont po lasix 80 bid and HD for vol management (started 05/12) -recent echo 03/2016 here similar to 09/2015, shows mod reduced lvef--? etiology ( ? if EF already down at time of dx of CAD and CABG) -need accurate assessment of AF rate control (r/o tachy-CMP) and burden ( paroxysmal) as outpt -has been getting near-daily HD/UF -05/20: overall wt trend here 213-->202 -however remains with severe orthopnea -doubt copd sx (pt given trial of nebs and says was no better) -CXR without evidence of pulm congestion, however suspect he is still hiding volume and filling pressures are up -d/w'd renal: plan to continue frequent UF until objective evidence of vol depletion -05/21: s/p UF yesterday; wt down 202 to 201; -05/22: no UF yesterday; wt up 201 to 204 this am--now 199 s/p UF today -05/23-05/29: Orthopnea improved, wt stable. con't home regimen of 80 mg po bid and volume management per renal/HD. -needs outpt PFTs/pulm eval (continuing high dose BB for now, no wheezing) -holding diovan 80 qd, hydralazine 25 bid, and isordil 10 qd given low bp possibly from sepsis, and low bp's at HD at home which may limit attempts at aggressive fluid removal here -reassess later once volume status better, if bp stable afib/flutter: -initially not well controlled--HRs to 140s at times. (cannot use dilt with chronic syst chf, low dose digoxin (HD pt) hi risk toxicity. Amio or consider AVN ablation/PPM if cannot adequately control HRs) -frequent self-d/c of monitoring and evaluation advisor limits assessment -? if tachy contributing to LV dysfunction and/or hi intracardiac filling pressures -05/20 incr'd toprol 200 bid (prefer not to hold it on HD days, if bp can tolerate) -05/22-05/26: Overall rate controlled, cont same, can dc tele -if remains with frequent tachy, can try change metoprolol to propranolol -avoiding dig given HD pt with risks of fluctuating levels -cont eliquis 2.5 bid (presyncopal consistently following eliquis 5mg doses at home--???)--hope to incr later once chf status and bp drops from HD are stabilized ESRD -cont hd per renal -fluid removal as disc'd above htn: -bp's on low side here, possibly due to infection/cellulitis so holding diovan, nitrate, hydralazine for now, resume when bp stable -LH/presyncope episodes at home, ? (highly unusual) med effect (eliquis 5mg)-- suspect more likely related to hi chf med burden with intravasc fluid shifts from HD hld: -cont home statin cad s/p cabg: -ce's neg x2, EKG without ischemic changes here, no suspected angina sx's -recent echo w/o sig change from prior -cont statin, bb, ac le cellulitis, possible gangrene, PAD: -s/p b/l common iliac stenting 05/26 -plans per vascular surgery, ID -back on eliquis digital ulcers - ddx from vasospasm/vasculitis vs. endocardiits. Blood cultures drawn with HD , pending. Rheumatologic work up per pmd.
--- NOTE | 2016-05-29 23:36 | PN ---
Progress Note, Physician History of Present Illness: No new complaints - Current Medication List Current Medications: Active Medications Acetaminophen (Tylenol -) 650 mg PO Q8H PRN PRN Reason: PAIN Last Admin: 05/29/16 21:33 Dose: 650 mg Apixaban (Eliquis -) 2.5 mg PO BID [facility] Last Admin: 05/29/16 21:32 Dose: 2.5 mg Atorvastatin Calcium (Lipitor -) 10 mg PO HS [facility] Last Admin: 05/29/16 21:32 Dose: 10 mg Fenofibric Acid (Trilipix -) 45 mg PO DAILY [facility] Last Admin: 05/29/16 11:48 Dose: 45 mg Furosemide (Lasix -) 80 mg PO BIDLASIX [facility] Last Admin: 05/29/16 14:22 Dose: 80 mg Metoprolol Succinate (Toprol Xl -) 200 mg PO BID [facility] Last Admin: 05/29/16 21:32 Dose: 200 mg Oxycodone HCl (Roxicodone -) 10 mg PO Q8H PRN PRN Reason: PAIN Last Admin: 05/29/16 21:32 Dose: 10 mg Sertraline HCl (Zoloft -) 50 mg PO DAILY [facility] Last Admin: 05/29/16 11:49 Dose: 50 mg Sevelamer Carbonate (Renvela Powder Packet -) 2.4 gm PO TIDCM [facility] Last Admin: 05/29/16 18:30 Dose: Not Given Sitagliptin Phosphate (Januvia -) 25 mg PO ACBK [facility] Last Admin: 05/29/16 08:00 Dose: Not Given Sodium Thiosulfate (Sodium Thiosulfate) 25 gm IV MoWeFr@1300 [facility] Last Admin: 05/29/16 14:19 Dose: Not Given - Objective Vital Signs: Vital Signs Temperature 97.1 F L 05/29/16 17:58 Pulse Rate 87 05/29/16 17:58 Respiratory Rate 19 05/29/16 20:44 Blood Pressure 122/50 05/29/16 17:58 O2 Sat by Pulse Oximetry (%) 97 05/29/16 22:00 Cardiovascular: Yes: WNL, Regular Rate and Rhythm Respiratory: Yes: WNL, Regular, CTA Bilaterally Gastrointestinal: Yes: WNL, Normal Bowel Sounds, Soft Labs: CBC, BMP 05/29/16 10:00 05/29/16 06:00 INR, PTT INR 1.59 (0.82-1.09) H 05/11/16 13:20 Problem List - Problems (1) Cellulitis of foot Code(s): L03.119 - CELLULITIS OF UNSPECIFIED PART OF LIMB (2) Dyspnea Code(s): R06.00 - DYSPNEA, UNSPECIFIED (3) Afib Code(s): I48.91 - UNSPECIFIED ATRIAL FIBRILLATION (4) End stage renal disease Code(s): N18.6 - END STAGE RENAL DISEASE (5) Congestive heart failure Code(s): I50.9 - HEART FAILURE, UNSPECIFIED Qualifiers: Qualified Code(s): I50.23 - Acute on chronic systolic (congestive) heart failure (6) HTN (hypertension) Code(s): I10 - ESSENTIAL (PRIMARY) HYPERTENSION (7) Diabetes Code(s): E11.9 - TYPE 2 DIABETES MELLITUS WITHOUT COMPLICATIONS (8) Anemia Code(s): D64.9 - ANEMIA, UNSPECIFIED Qualifiers: Qualified Code(s): D64.9 - Anemia, unspecified (9) HLD (hyperlipidemia) Code(s): E78.5 - HYPERLIPIDEMIA, UNSPECIFIED
[2016-05-30] MEDS ORDERED: PT OWN MED DRAWER 7, Y5N ONE ×4 (05:17→22:14)
[2016-05-30] MEDS: ACETAMINOPHEN 325 MG TABLET (FP) PO PRN ×2 (05:37→15:44)
[2016-05-30] MEDS: oxyCODONE HCL 5 MG TABLET PO PRN ×2 (05:37→15:44)
[2016-05-30] MEDS: FUROSEMIDE 40 MG TABLET (FP) PO SCH ×3 (05:38→15:43)
[2016-05-30] MEDS: sitaGLIPtin PHOSPHATE 25 MG TABLET (FP) PO SCH (06:09)
[2016-05-30] MEDS: SEVELAMER CARBONATE 2.4 GM POWDER PACKET PO SCH ×3 (08:07→16:38)
[2016-05-30] MEDS: SERTRALINE HCL 50 MG TABLET (FP) PO SCH ×2 (10:05→12:37)
[2016-05-30] MEDS: FENOFIBRIC ACID 45 MG CAP PO SCH ×2 (10:05→12:37)
[2016-05-30] MEDS: APIXABAN 2.5 MG TABLET PO SCH (10:05)
[2016-05-30] MEDS: METOPROLOL SUCCINATE 100 MG TAB.SR.24H (FP) PO SCH ×3 (10:05→22:38)
--- NOTE | 2016-05-30 12:11 | PN ---
Progress Note (short form) - Note Progress Note: No acute events overnight. No CP or SOB. Intake & Output 05/27/16 05/28/16 05/29/16 05/30/16 23:59 23:59 23:59 23:59 Intake Total 550 1675 320 Output Total 0 Balance 550 1675 320 Weight 199 lb 198 lb 5 oz 207 lb 12.8 oz 201 lb 5 oz Last Vital Signs Temp Pulse Resp BP Pulse Ox 97.4 F L 96 H 18 121/69 97 05/30/16 01:59 05/30/16 01:59 05/30/16 01:59 05/30/16 01:59 05/29/16 22:00 Active Medications Acetaminophen (Tylenol -) 650 mg PO Q8H PRN PRN Reason: PAIN Last Admin: 05/30/16 05:37 Dose: 650 mg Apixaban (Eliquis -) 2.5 mg PO BID [facility] Last Admin: 05/30/16 10:05 Dose: 2.5 mg Atorvastatin Calcium (Lipitor -) 10 mg PO HS [facility] Last Admin: 05/29/16 21:32 Dose: 10 mg Fenofibric Acid (Trilipix -) 45 mg PO DAILY [facility] Last Admin: 05/30/16 10:05 Dose: 45 mg Furosemide (Lasix -) 80 mg PO BIDLASIX [facility] Last Admin: 05/30/16 05:38 Dose: 80 mg Metoprolol Succinate (Toprol Xl -) 200 mg PO BID [facility] Last Admin: 05/30/16 10:05 Dose: 200 mg Oxycodone HCl (Roxicodone -) 10 mg PO Q8H PRN PRN Reason: PAIN Last Admin: 05/30/16 05:37 Dose: 10 mg Sertraline HCl (Zoloft -) 50 mg PO DAILY [facility] Last Admin: 05/30/16 10:05 Dose: 50 mg Sevelamer Carbonate (Renvela Powder Packet -) 2.4 gm PO TIDCM [facility] Last Admin: 05/30/16 11:55 Dose: Not Given Sitagliptin Phosphate (Januvia -) 25 mg PO ACBK [facility] Last Admin: 05/30/16 06:09 Dose: Not Given Sodium Thiosulfate (Sodium Thiosulfate) 25 gm IV MoWeFr@1300 [facility] Last Admin: 05/29/16 14:19 Dose: Not Given Constitutional: Yes: NAD Eyes: Yes: WNL HENT: Yes: WNL Neck: Yes: WNL Cardiovascular: Yes: Pulse Irregular, S1, S2 Respiratory: Yes: Diminished at the bases Gastrointestinal: Yes: Normal Bowel Sounds, Soft Extremities: Yes: Other : bandage Edema: Yes Labs: Laboratory Results - last 24 hr 05/29/16 05/29/16 05/29/16 05:50 06:00 07:30 WBC 10.8 H RBC 3.25 L Hgb 9.2 L Hct 28.9 L MCV 88.8 MCHC 31.9 L RDW 16.4 H Plt Count 243 MPV 8.9 Neutrophils % Lymphocytes % Monocytes % Eosinophils % Basophils % Sodium 134 L Potassium 4.6 Chloride 92 L Carbon Dioxide 25 Anion Gap 17 H BUN 61 H Creatinine 7.3 H Creat Clearance w eGFR 7.64 POC Glucometer 79 Random Glucose 69 L Calcium 9.3 Phosphorus 6.0 H Total Bilirubin 0.4 AST 28 D ALT 21 Alkaline Phosphatase 69 Total Protein 6.6 Albumin 2.9 L 05/29/16 05/29/16 07:30 10:00 WBC 10.9 H RBC 3.19 L Hgb 9.2 L Hct 28.3 L MCV 88.6 MCHC 32.6 RDW 16.3 H Plt Count 235 MPV 8.7 Neutrophils % 71.1 Lymphocytes % 14.3 Monocytes % 10.8 H Eosinophils % 2.4 Basophils % 1.4 Sodium Potassium Chloride Carbon Dioxide Anion Gap BUN Creatinine Creat Clearance w eGFR POC Glucometer Random Glucose Calcium Phosphorus Cancelled Total Bilirubin AST ALT Alkaline Phosphatase Total Protein Albumin Problem List - Problems (1) Afib Code(s): I48.91 - UNSPECIFIED ATRIAL FIBRILLATION (3) CHF exacerbation Code(s): I50.9 - HEART FAILURE, UNSPECIFIED Qualifiers: Congestive heart failure type: unspecified congestive heart failure type Qualified Code(s): I50.9 - Heart failure, unspecified (4) Cellulitis and abscess of foot Code(s): L03.119 - CELLULITIS OF UNSPECIFIED PART OF LIMB L02.619 - CUTANEOUS ABSCESS OF UNSPECIFIED FOOT (5) Microangiopathy, 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 (6) Anemia Code(s): D64.9 - ANEMIA, UNSPECIFIED Qualifiers: Anemia type: unspecified type Qualified Code(s): D64.9 - Anemia, unspecified (7) Atrial fibrillation with RVR Code(s): I48.91 - UNSPECIFIED ATRIAL FIBRILLATION (8) Bilateral shoulder pain Code(s): M25.511 - PAIN IN RIGHT SHOULDER M25.512 - PAIN IN LEFT SHOULDER (9) Cellulitis of foot Code(s): L03.119 - CELLULITIS OF UNSPECIFIED PART OF LIMB (10) Dyspnea on exertion Code(s): R06.09 - OTHER FORMS OF DYSPNEA (11) HTN (hypertension) Code(s): I10 - ESSENTIAL (PRIMARY) HYPERTENSION (12) Atrial flutter Code(s): I48.92 - UNSPECIFIED ATRIAL FLUTTER (13) CAD, multiple vessel Code(s): I25.10 - ATHSCL HEART DISEASE OF [place] CORONARY ARTERY W/O ANG PCTRS (14) Congestive heart failure Code(s): I50.9 - HEART FAILURE, UNSPECIFIED Qualifiers: Congestive heart failure type: systolic Congestive heart failure chronicity: acute on chronic Qualified Code(s): I50.23 - Acute on chronic systolic (congestive) heart failure (15) Diabetes Code(s): E11.9 - TYPE 2 DIABETES MELLITUS WITHOUT COMPLICATIONS (16) End stage renal disease Code(s): N18.6 - END STAGE RENAL DISEASE Assessment/Plan IMP DYSPNEA MULTIPLE FACTORS,CHF,COPD improved PULMONARY HTN ASHD S/P CABG ESRD ON HD AFIB HTN DM PVD CELLULITIS LIKELY OSAS PLAN HD PER RENAL ABX PER ID INHALED BRONCHODILATORS SUPPLEMENTAL O2 PFTS OUTPATIENT SLEEP WORKUP AN OUTPATIENT -> THUS FAR THE PATIENT IS REFUSING WORKUP -> RISKS AND BENEFITS EXPLAINED IN DETAIL DR PARK
[2016-05-30] MEDS: SEVELAMER CARBONATE 0.8 GM POWDER PACKET PO SCH (12:36)
[2016-05-30] MEDS: SODIUM THIOSULFATE 12.5 GM/50 ML VIAL IV SCH (12:37)
--- NOTE | 2016-05-30 12:42 | PN ---
Progress Note (short form) - Note Progress Note: Renal Follow up for ESRD Pt seen and examined at the bedside has pain in fingers, feet and thighs no sob or chest pain able to lay down flat Vital Signs Temperature 97.3 F L 05/30/16 10:00 Pulse Rate 97 H 05/30/16 10:00 Respiratory Rate 15 05/30/16 10:00 Blood Pressure 124/57 05/30/16 10:00 O2 Sat by Pulse Oximetry (%) 97 05/30/16 10:00 Gen: awake and alert CVS: RRR, No M/R Lungs: CTA, no rales or wheeze Abd: soft NT/ND Ext: Trace edema in LE. CBC, BMP 05/29/16 10:00 05/29/16 06:00 Laboratory Tests 05/29/16 06:00 Calcium 9.3 Phosphorus 6.0 H Albumin 2.9 L Current Medications Acetaminophen (Tylenol -) 650 mg PO Q6H PRN PRN Reason: PAIN Apixaban (Eliquis -) 2.5 mg PO BID [facility] Last Admin: 05/30/16 10:05 Dose: 2.5 mg Atorvastatin Calcium (Lipitor -) 10 mg PO HS [facility] Last Admin: 05/29/16 21:32 Dose: 10 mg Fenofibric Acid (Trilipix -) 45 mg PO DAILY [facility] Last Admin: 05/30/16 10:05 Dose: 45 mg Furosemide (Lasix -) 80 mg PO BIDLASIX [facility] Last Admin: 05/30/16 05:38 Dose: 80 mg Metoprolol Succinate (Toprol Xl -) 200 mg PO BID [facility] Last Admin: 05/30/16 10:05 Dose: 200 mg Oxycodone HCl (Roxicodone -) 10 mg PO Q8H PRN PRN Reason: PAIN Last Admin: 05/30/16 05:37 Dose: 10 mg Sertraline HCl (Zoloft -) 50 mg PO DAILY [facility] Last Admin: 05/30/16 10:05 Dose: 50 mg Sevelamer Carbonate (Renvela Powder Packet -) 2.4 gm PO TIDCM [facility] Last Admin: 05/30/16 11:55 Dose: Not Given Sitagliptin Phosphate (Januvia -) 25 mg PO ACBK [facility] Last Admin: 05/30/16 06:09 Dose: Not Given Sodium Thiosulfate (Sodium Thiosulfate) 25 gm IV MoWeFr@1300 [facility] Last Admin: 05/29/16 14:19 Dose: Not Given A/P 60 year old gentleman with PMhx of ESRD (recently started on dialysis), CAD s/p CABG, DM Type 2, Depression, CHF who with LE weakness s/p recent fall and wound on right foot. #ESRD on HD with fluid overload s/p dialysis yesterday Wt is 201 and pt does not have orthopnea plan for further HD tomorrow with UF #LE wound/PVD s/p angiogram with stenting ? 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
--- NOTE | 2016-05-30 16:49 | PN ---
Progress Note, Physician Chief Complaint: chf History of Present Illness: mild orthopnea at times--resolves after HD sessions no cp no palpitations pain and dark discoloration of finger on R hand and one on L hand comes and goes ; no syncope - Current Medication List Current Medications: Active Medications Acetaminophen (Tylenol -) 650 mg PO Q6H PRN PRN Reason: PAIN Last Admin: 05/30/16 15:44 Dose: 650 mg Apixaban (Eliquis -) 2.5 mg PO BID [facility] Last Admin: 05/30/16 10:05 Dose: 2.5 mg Atorvastatin Calcium (Lipitor -) 10 mg PO HS [facility] Last Admin: 05/29/16 21:32 Dose: 10 mg Epoetin Campos (Epogen -) 4,000 units IVPUSH ONCE ONE Stop: 05/31/16 06:01 Fenofibric Acid (Trilipix -) 45 mg PO DAILY [facility] Last Admin: 05/30/16 10:05 Dose: 45 mg Furosemide (Lasix -) 80 mg PO BIDLASIX [facility] Last Admin: 05/30/16 15:43 Dose: 80 mg Metoprolol Succinate (Toprol Xl -) 200 mg PO BID [facility] Last Admin: 05/30/16 10:05 Dose: 200 mg Oxycodone HCl (Roxicodone -) 10 mg PO Q8H PRN PRN Reason: PAIN Last Admin: 05/30/16 15:44 Dose: 10 mg Sertraline HCl (Zoloft -) 50 mg PO DAILY [facility] Last Admin: 05/30/16 10:05 Dose: 50 mg Sevelamer Carbonate (Renvela Powder Packet -) 2.4 gm PO TIDCM [facility] Last Admin: 05/30/16 16:38 Dose: Not Given Sitagliptin Phosphate (Januvia -) 25 mg PO ACBK [facility] Last Admin: 05/30/16 06:09 Dose: Not Given Sodium Thiosulfate (Sodium Thiosulfate) 25 gm IV MoWeFr@1300 [facility] Last Admin: 05/29/16 14:19 Dose: Not Given - Objective Vital Signs: Vital Signs Temperature 97.6 F 05/30/16 14:00 Pulse Rate 68 05/30/16 14:00 Respiratory Rate 17 05/30/16 14:00 Blood Pressure 124/57 05/30/16 10:00 O2 Sat by Pulse Oximetry (%) 97 05/30/16 10:00 Constitutional: Yes: Well Nourished, No Distress, Calm Cardiovascular: Yes: Pulse Irregular, S1, S2. No: Gallop, Murmur Respiratory: Yes: Regular, CTA Bilaterally. No: Accessory Muscle Use, Rales, Wheezes Extremities: No: Cold Edema: No Neurological: Yes: Alert, Oriented Psychiatric: No: Agitated Labs: CBC, BMP 05/29/16 10:00 05/29/16 06:00 INR, PTT INR 1.59 (0.82-1.09) H 05/11/16 13:20 Assessment/Plan echo 09/2015: mod lve, mild-mod dec lvef, global HK, nl rv, mod-sev mr, sev tr, marixa, nl rvsp echo 03/2016: mild lve, mod dec lvef, ant HK, nl rv size, marixa, mild mr, mod tr, rvsp 40-50 a/p: 60 m hx htn, hld, dm, cabg (04/2006), ESRD, afib/flutter, syst chf, esrd on HD, here with infected foot wound chronic syst chf: -significant sob with little activity and orthopnea here, despite clear cxr and no jvd/edema--likely was high filling pressures in retrospect -freq HD/UF (more than TIW) here with overall wt trend from 213 down to low of 198 -sob and orthopnea improved -may not tolerate being at dry wt as he has had issues with low bp's during HD and LH sx's following HD -needs outpt PFTs/pulm eval (continuing high dose BB for now, no wheezing) -holding diovan 80 qd, hydralazine 25 bid, and isordil 10 qd given low bp possibly from sepsis, and low bp's at HD at home which may limit attempts at aggressive fluid removal here -reassess later once volume status better, if bp stable--will try add back ARB later and defer nitrates/hydral for now -need accurate assessment of AF rate control (r/o tachy-CMP) and burden ( paroxysmal) as outpt afib/flutter: -initially not well controlled--HRs to 140s at times. (cannot use dilt with chronic syst chf, low dose digoxin (HD pt) hi risk toxicity. Amio or consider AVN ablation/PPM if cannot adequately control HRs) -frequent self-d/c of brick tester limits assessment -? if tachy contributing to LV dysfunction and/or hi intracardiac filling pressures -05/20 incr'd toprol 200 bid with good HR control thereafter -outpt monitoring of HR control, as above -avoiding dig given HD pt with risks of fluctuating levels -cont eliquis 2.5 bid (presyncopal consistently following eliquis 5mg doses at home--???)--hope to incr later once chf status and bp drops from HD are stabilized ESRD -cont hd per renal -fluid removal as disc'd above htn: -bp's on low side here, possibly due to infection/cellulitis so holding diovan, nitrate, hydralazine for now, resume when bp stable -LH/presyncope episodes at home, ? (highly unusual) med effect (eliquis 5mg)-- suspect more likely related to hi chf med burden with intravasc fluid shifts from HD hld: -cont home statin cad s/p cabg: -ce's neg x2, EKG without ischemic changes here, no suspected angina sx's -recent echo w/o sig change from prior -cont statin, bb, ac le cellulitis, possible gangrene, PAD: -s/p b/l common iliac stenting 05/26 -plans per vascular surgery, ID -back on eliquis PAD (LEs), +digital ulcers - ? all secondary to (small vessel?) arterial athero dz; - vascular surgery input appreciated: (1) s/p bilateral common iliac (kissing) stents here (2) toes remain ischemic and cold postop; LE angio did not show any occlusion of posterior tibial, but flow was sluggish below knee suggesting poor runoff-- may need distal tibial angiogram to see if any occlusive lesion present (3) Right 4th finger discolored without evidence of tissue loss. ? small vessel occlusive disease or arterial embolism---RUE arterial duplex was done which was normal -highly unlikely this represents cardiogenic emboli with normal duplex, and given one finger on each hand is affected - on AC (held for vascular procedures)--will go back up on eliquis from 2.5 bid currently receiving, to 5mg bid (doubt presyncope at home was related to this med--see above discussion)
--- NOTE | 2016-05-30 19:57 | PN ---
Progress Note, Physician History of Present Illness: stable - Current Medication List Current Medications: Active Medications Acetaminophen (Tylenol -) 650 mg PO Q6H PRN PRN Reason: PAIN Last Admin: 05/30/16 15:44 Dose: 650 mg Apixaban (Eliquis -) 5 mg PO BID [facility] Atorvastatin Calcium (Lipitor -) 10 mg PO HS [facility] Last Admin: 05/29/16 21:32 Dose: 10 mg Epoetin Campos (Epogen -) 4,000 units IVPUSH ONCE ONE Stop: 05/31/16 06:01 Fenofibric Acid (Trilipix -) 45 mg PO DAILY [facility] Last Admin: 05/30/16 10:05 Dose: 45 mg Furosemide (Lasix -) 80 mg PO BIDLASIX [facility] Last Admin: 05/30/16 15:43 Dose: 80 mg Metoprolol Succinate (Toprol Xl -) 200 mg PO BID [facility] Last Admin: 05/30/16 10:05 Dose: 200 mg Oxycodone HCl (Roxicodone -) 10 mg PO Q8H PRN PRN Reason: PAIN Last Admin: 05/30/16 15:44 Dose: 10 mg Sertraline HCl (Zoloft -) 50 mg PO DAILY [facility] Last Admin: 05/30/16 10:05 Dose: 50 mg Sevelamer Carbonate (Renvela Powder Packet -) 2.4 gm PO TIDCM [facility] Last Admin: 05/30/16 16:38 Dose: Not Given Sitagliptin Phosphate (Januvia -) 25 mg PO ACBK [facility] Last Admin: 05/30/16 06:09 Dose: Not Given Sodium Thiosulfate (Sodium Thiosulfate) 25 gm IV MoWeFr@1300 [facility] Last Admin: 05/29/16 14:19 Dose: Not Given - Objective Vital Signs: Vital Signs Temperature 97.6 F 05/30/16 14:00 Pulse Rate 68 05/30/16 14:00 Respiratory Rate 17 05/30/16 14:00 Blood Pressure 124/57 05/30/16 10:00 O2 Sat by Pulse Oximetry (%) 97 05/30/16 10:00 Constitutional: Yes: No Distress HENT: Yes: Atraumatic Neck: Yes: Supple Cardiovascular: Yes: Regular Rate and Rhythm Respiratory: Yes: CTA Bilaterally Gastrointestinal: Yes: Normal Bowel Sounds Extremities: Yes: WNL Labs: CBC, BMP 05/29/16 10:00 05/29/16 06:00 INR, PTT INR 1.59 (0.82-1.09) H 05/11/16 13:20 Problem List - Problems (1) Afib Assessment/Plan: pt on anticoagulation and meds for rate control continue Code(s): I48.91 - UNSPECIFIED ATRIAL FIBRILLATION (2) CHF exacerbation Assessment/Plan: on lasix bid Code(s): I50.9 - HEART FAILURE, UNSPECIFIED Qualifiers: Congestive heart failure type: unspecified congestive heart failure type Qualified Code(s): I50.9 - Heart failure, unspecified (3) End stage chronic kidney disease Code(s): N18.6 - END STAGE RENAL DISEASE Z99.2 - DEPENDENCE ON RENAL DIALYSIS (4) HLD (hyperlipidemia) Assessment/Plan: on meds Code(s): E78.5 - HYPERLIPIDEMIA, UNSPECIFIED (5) Microangiopathy, diabetic Assessment/Plan: on meds bgms Code(s): E11.51 - TYPE 2 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
[2016-05-30] MEDS ORDERED: APIXABAN 5 MG TABLET PO SCH (22:00)
[2016-05-30] MEDS: ATORVASTATIN CA 10 MG TABLET (FP) PO SCH (22:38)
[2016-05-31] MEDS: ACETAMINOPHEN 325 MG TABLET (FP) PO PRN ×4 (01:50→23:49)
[2016-05-31] MEDS: oxyCODONE HCL 5 MG TABLET PO PRN ×4 (01:50→23:50)
[2016-05-31] MEDS: FUROSEMIDE 40 MG TABLET (FP) PO SCH ×2 (07:10→14:35)
[2016-05-31] MEDS: sitaGLIPtin PHOSPHATE 25 MG TABLET (FP) PO SCH (07:10)
[2016-05-31] MEDS: SEVELAMER CARBONATE 2.4 GM POWDER PACKET PO SCH ×3 (07:22→16:51)
[2016-05-31] MEDS ORDERED: EPOETIN ALFA 2,000 UNITS/1 ML VIAL IVPUSH ONE (10:00)
[2016-05-31 10:03] LABS: MCH 28.7 pg (25.7-33.7); MCHC 32.5 g/dl (32.0-35.9); MEAN CELL VOLUME 88.2 fl (80-96); MEAN PLT VOLUME 8.4 fl (7.5-11.1); PLATELET COUNT 220 K/MM3 (134-434); RDW 16.8 % (11.9-15.9); WHITE BLOOD COUNT 7.7 K/mm3 (4.0-10.0)
[2016-05-31] MEDS ORDERED: PT OWN MED DRAWER 7, Y5N ONE (10:06)
[2016-05-31 10:25] LABS: CALCIUM 8.6 mg/dL (8.5-10.1); CREATININE 6.3 mg/dL (0.7-1.3); PHOSPHOROUS 5.3 mg/dL (2.5-4.9)
--- NOTE | 2016-05-31 11:55 | PN ---
Progress Note (short form) - Note Progress Note: Renal Follow up for ESRD Pt seen and examined during dialysis BP stable, goal UF is 3L pt continues to have pain in hands and feet pain not adequately controlled with Q8h Oxycodone Vital Signs Temperature 97.4 F L 05/31/16 10:00 Pulse Rate 95 H 05/31/16 10:00 Respiratory Rate 18 05/31/16 10:00 Blood Pressure 135/70 05/31/16 10:00 O2 Sat by Pulse Oximetry (%) 98 05/31/16 10:00 Intake & Output 05/28/16 05/29/16 05/30/16 05/31/16 23:59 23:59 23:59 23:59 Intake Total 1675 320 320 Output Total 0 Balance 1675 320 320 Weight 198 lb 5 oz 207 lb 12.8 oz 201 lb 5 oz 201 lb 7 oz Gen: awake and alert CVS: RRR, No M/R Lungs: CTA, no rales or wheeze Abd: soft NT/ND Ext: Trace edema in LE. CBC, BMP 05/31/16 09:20 05/31/16 09:20 Current Medications Acetaminophen (Tylenol -) 650 mg PO Q6H PRN PRN Reason: PAIN Last Admin: 05/31/16 01:50 Dose: 650 mg Apixaban (Eliquis -) 5 mg PO BID [facility] Last Admin: 05/30/16 23:15 Dose: 5 mg Atorvastatin Calcium (Lipitor -) 10 mg PO HS [facility] Last Admin: 05/30/16 22:38 Dose: 10 mg Fenofibric Acid (Trilipix -) 45 mg PO DAILY [facility] Last Admin: 05/30/16 10:05 Dose: 45 mg Furosemide (Lasix -) 80 mg PO BIDLASIX [facility] Last Admin: 05/31/16 07:10 Dose: Not Given Metoprolol Succinate (Toprol Xl -) 200 mg PO BID [facility] Last Admin: 05/30/16 22:38 Dose: 200 mg Oxycodone HCl (Roxicodone -) 10 mg PO Q6H PRN PRN Reason: PAIN Sertraline HCl (Zoloft -) 50 mg PO DAILY [facility] Last Admin: 05/30/16 10:05 Dose: 50 mg Sevelamer Carbonate (Renvela Powder Packet -) 2.4 gm PO TIDCM [facility] Last Admin: 05/31/16 07:22 Dose: Not Given Sitagliptin Phosphate (Januvia -) 25 mg PO ACBK [facility] Last Admin: 05/31/16 07:10 Dose: Not Given Sodium Thiosulfate (Sodium Thiosulfate) 25 gm IV MoWeFr@1300 [facility] Last Admin: 05/29/16 14:19 Dose: Not Given A/P 60 year old gentleman with PMhx of ESRD (recently started on dialysis), CAD s/p CABG, DM Type 2, Depression, CHF who with LE weakness s/p recent fall and wound on right foot. #ESRD on HD with fluid overload tolerating dialysis well today UF is 3L as tolerated bath changed to 3k #LE wound/PVD s/p angiogram with stenting second angiogram as per [facility] Eliquis on hold #Suspected Caliphyalxis Continue sodium thiosulfate IVPB with dialysis 3x weekly with HD keep Ca x Phos product less then 55 continue Renvela powder (discussed importance of compliance with patient) #Cyanosis of fingers r/o SBE Cultures on admission negative repeat cultures as of yesterday not reported yet pain control Won Weiss DO
[2016-05-31] MEDS: SODIUM THIOSULFATE 12.5 GM/50 ML VIAL IV SCH (12:18)
[2016-05-31] MEDS: FENOFIBRIC ACID 45 MG CAP PO SCH (13:21)
[2016-05-31] MEDS: SERTRALINE HCL 50 MG TABLET (FP) PO SCH (13:21)
[2016-05-31] MEDS: METOPROLOL SUCCINATE 100 MG TAB.SR.24H (FP) PO SCH ×2 (13:21→21:10)
--- NOTE | 2016-05-31 16:40 | SPA.PREOP ---
- PRE-OP NOTE Planned Procedure: LLE Angio Surgeon: Dr. Young Consent: To be obtained after surgeon explained all risks, benefits and alternatives. Last Vital Signs Temp Pulse Resp BP Pulse Ox 97.7 F 98 H 20 125/73 98 05/31/16 14:00 05/31/16 14:00 05/31/16 14:00 05/31/16 14:00 05/31/16 10:00 Lab Results WBC 7.7 K/mm3 (4.0-10.0) 05/31/16 09:20 RBC 3.14 M/mm3 (4.00-5.60) L 05/31/16 09:20 Hgb 9.0 GM/dL (11.7-16.9) L 05/31/16 09:20 Hct 27.7 % (35.4-49) L 05/31/16 09:20 MCV 88.2 fl (80-96) 05/31/16 09:20 MCHC 32.5 g/dl (32.0-35.9) 05/31/16 09:20 RDW 16.8 % (11.9-15.9) H 05/31/16 09:20 Plt Count 220 K/MM3 (134-434) 05/31/16 09:20 Sodium 137 mmol/L (136-145) 05/31/16 09:20 Potassium 3.7 mmol/L (3.5-5.1) 05/31/16 09:20 Chloride 96 mmol/L (98-107) L 05/31/16 09:20 Carbon Dioxide 27 mmol/L (21-32) 05/31/16 09:20 Anion Gap 14 (8-16) 05/31/16 09:20 BUN 53 mg/dL (7-18) H 05/31/16 09:20 Creatinine 6.3 mg/dL (0.7-1.3) H 05/31/16 09:20 Random Glucose 106 mg/dL (74-106) D 05/31/16 09:20 Calcium 8.6 mg/dL (8.5-10.1) 05/31/16 09:20 Blood Type O POSITIVE 05/23/16 11:47 Antibody Screen Negative 05/23/16 11:47 INR 1.59 (0.82-1.09) H 05/11/16 13:20 - ASSESSMENT/PLAN 1. Make NPO after breakfast, may have clears for breakfast 2. Continue to hold eliquis 3. Medical optimization / clearance Visit type - Case Type Case Type: ED Admission
--- NOTE | 2016-05-31 18:17 | PN ---
Progress Note (short form) - Note Progress Note: Chief Complaint: chf History of Present Illness: mild orthopnea at times--resolves after HD sessions no cp no palpitations pain and dark discoloration of finger on R hand and one on L hand comes and goes ; no syncope Current Medications Acetaminophen (Tylenol -) 650 mg PO Q6H PRN PRN Reason: PAIN Last Admin: 05/31/16 13:20 Dose: 650 mg Apixaban (Eliquis -) 5 mg PO BID [facility] Last Admin: 05/30/16 23:15 Dose: 5 mg Atorvastatin Calcium (Lipitor -) 10 mg PO HS [facility] Last Admin: 05/30/16 22:38 Dose: 10 mg Fenofibric Acid (Trilipix -) 45 mg PO DAILY [facility] Last Admin: 05/31/16 13:21 Dose: 45 mg Furosemide (Lasix -) 80 mg PO BIDLASIX [facility] Last Admin: 05/31/16 14:35 Dose: Not Given Metoprolol Succinate (Toprol Xl -) 200 mg PO BID [facility] Last Admin: 05/31/16 13:21 Dose: 200 mg Oxycodone HCl (Roxicodone -) 10 mg PO Q6H PRN PRN Reason: PAIN Last Admin: 05/31/16 13:20 Dose: 10 mg Sertraline HCl (Zoloft -) 50 mg PO DAILY [facility] Last Admin: 05/31/16 13:21 Dose: 50 mg Sevelamer Carbonate (Renvela Powder Packet -) 2.4 gm PO TIDCM [facility] Last Admin: 05/31/16 16:51 Dose: Not Given Sitagliptin Phosphate (Januvia -) 25 mg PO ACBK [facility] Last Admin: 05/31/16 07:10 Dose: Not Given Sodium Thiosulfate (Sodium Thiosulfate) 25 gm IV MoWeFr@1300 [facility] Last Admin: 05/31/16 12:18 Dose: 25 gm Vital Signs - 24 hr 05/30/16 05/30/16 05/31/16 21:00 22:00 09:00 Temperature Pulse Rate Respiratory Rate Blood Pressure O2 Sat by Pulse 98 98 98 Oximetry (%) 05/31/16 05/31/16 05/31/16 09:15 09:20 09:50 Temperature 97.9 F Pulse Rate 58 L 68 69 Respiratory 18 18 18 Rate Blood Pressure 128/68 137/74 113/62 O2 Sat by Pulse Oximetry (%) 05/31/16 05/31/16 05/31/16 10:00 10:20 10:50 Temperature 97.4 F L Pulse Rate 95 H 97 H 98 H Respiratory 18 18 18 Rate Blood Pressure 135/70 135/71 126/64 O2 Sat by Pulse 98 Oximetry (%) 05/31/16 05/31/16 05/31/16 11:20 11:50 12:20 Temperature Pulse Rate 91 H 68 85 Respiratory 18 18 18 Rate Blood Pressure 131/66 128/64 131/64 O2 Sat by Pulse Oximetry (%) 05/31/16 05/31/16 05/31/16 12:50 13:00 14:00 Temperature 97.7 F Pulse Rate 60 96 H 98 H Respiratory 18 18 20 Rate Blood Pressure 122/63 139/82 125/73 O2 Sat by Pulse Oximetry (%) 05/31/16 18:01 Temperature 98.1 F Pulse Rate 95 H Respiratory 19 Rate Blood Pressure 107/67 O2 Sat by Pulse Oximetry (%) Intake & Output 05/29/16 05/30/16 05/31/16 06/01/16 07:59 07:59 07:59 07:59 Intake Total 1175 320 320 120 Output Total 0 0 Balance 1175 320 320 120 Weight 207 lb 12.8 oz 201 lb 5 oz 201 lb 7 oz Constitutional: Yes: No Distress, Calm Eyes: No: Sclera Icterus HENT: No: Nasal Congestion Cardiovascular: Yes: Pulse Irregular, S1, S2, Other (PMI non diplaced). No: JVD , Gallop, Murmur Respiratory: Yes: cta bl nl eff. No: Accessory Muscle Use, Rales, Wheezes Gastrointestinal: Yes: Normal Bowel Sounds, Soft. No: Tenderness Musculoskeletal: Yes: Other (No kyphosis) Extremities: No: Cold. tender digital ulcers with purple discoloration. bruising, erythema around right thigh induration Edema: Yes (trace pretib) Integumentary: No: Jaundice diaphoresis Neurological: Yes: Alert, Oriented (x3) Psychiatric: No: Agitated CBC, BMP 05/31/16 09:20 05/31/16 09:20 echo 09/2015: mod lve, mild-mod dec lvef, global HK, nl rv, mod-sev mr, sev tr, marixa, nl rvsp echo 03/2016: mild lve, mod dec lvef, ant HK, nl rv size, marixa, mild mr, mod tr, rvsp 40-50 a/p: 60 m hx htn, hld, dm, cabg (04/2006), ESRD, afib/flutter, syst chf, esrd on HD, here with infected foot wound chronic syst chf: -significant sob with little activity and orthopnea here, despite clear cxr and no jvd/edema--likely was high filling pressures in retrospect -freq HD/UF (more than TIW) here with overall wt trend from 213 down to low of 198 -sob and orthopnea improved -may not tolerate being at dry wt as he has had issues with low bp's during HD and LH sx's following HD -needs outpt PFTs/pulm eval (continuing high dose BB for now, no wheezing) -holding diovan 80 qd, hydralazine 25 bid, and isordil 10 qd given low bp possibly from sepsis, and low bp's at HD at home which may limit attempts at aggressive fluid removal here -reassess later once volume status better, if bp stable--will try add back ARB later and defer nitrates/hydral for now -need accurate assessment of AF rate control (r/o tachy-CMP) and burden ( paroxysmal) as outpt afib/flutter: -initially not well controlled--HRs to 140s at times. (cannot use dilt with chronic syst chf, low dose digoxin (HD pt) hi risk toxicity. Amio or consider AVN ablation/PPM if cannot adequately control HRs) -frequent self-d/c of cardiac monitor technician limits assessment -? if tachy contributing to LV dysfunction and/or hi intracardiac filling pressures -05/20 incr'd toprol 200 bid with good HR control thereafter -outpt monitoring of HR control, as above -avoiding dig given HD pt with risks of fluctuating levels -cont eliquis 2.5 bid (presyncopal consistently following eliquis 5mg doses at home--???)--hope to incr later once chf status and bp drops from HD are stabilized ESRD -cont hd per renal -fluid removal as disc'd above htn: -bp's on low side here, possibly due to infection/cellulitis so holding diovan, nitrate, hydralazine for now, resume when bp stable -LH/presyncope episodes at home, ? (highly unusual) med effect (eliquis 5mg)-- suspect more likely related to hi chf med burden with intravasc fluid shifts from HD hld: -cont home statin cad s/p cabg: -ce's neg x2, EKG without ischemic changes here, no suspected angina sx's -recent echo w/o sig change from prior -cont statin, bb, ac le cellulitis, possible gangrene, PAD: -s/p b/l common iliac stenting 05/26 -plans per vascular surgery, ID -back on eliquis PAD (LEs), +digital ulcers - ? all secondary to (small vessel?) arterial athero dz; - vascular surgery input appreciated: (1) s/p bilateral common iliac (kissing) stents here (2) toes remain ischemic and cold postop; LE angio did not show any occlusion of posterior tibial, but flow was sluggish below knee suggesting poor runoff-- may need distal tibial angiogram to see if any occlusive lesion present (3) Right 4th finger discolored without evidence of tissue loss. ? small vessel occlusive disease or arterial embolism---RUE arterial duplex was done which was normal -highly unlikely this represents cardiogenic emboli with normal duplex, and given one finger on each hand is affected - on AC (held for vascular procedures)--will go back up on eliquis from 2.5 bid currently receiving, to 5mg bid (doubt presyncope at home was related to this med--see above discussion)
[2016-05-31] MEDS: ATORVASTATIN CA 10 MG TABLET (FP) PO SCH (21:12)
--- NOTE | 2016-05-31 22:39 | PN ---
Progress Note, Physician History of Present Illness: No new complaints - Current Medication List Current Medications: Active Medications Acetaminophen (Tylenol -) 650 mg PO Q6H PRN PRN Reason: PAIN Last Admin: 05/31/16 18:21 Dose: 650 mg Acetaminophen (Tylenol -) 650 mg PO Q5H PRN PRN Reason: FEVER OR PAIN Apixaban (Eliquis -) 5 mg PO BID [facility] Last Admin: 05/30/16 23:15 Dose: 5 mg Atorvastatin Calcium (Lipitor -) 10 mg PO HS [facility] Last Admin: 05/31/16 21:12 Dose: 10 mg Fenofibric Acid (Trilipix -) 45 mg PO DAILY [facility] Last Admin: 05/31/16 13:21 Dose: 45 mg Furosemide (Lasix -) 80 mg PO BIDLASIX [facility] Last Admin: 05/31/16 14:35 Dose: Not Given Metoprolol Succinate (Toprol Xl -) 200 mg PO BID [facility] Last Admin: 05/31/16 21:10 Dose: 200 mg Oxycodone HCl (Roxicodone -) 10 mg PO Q6H PRN PRN Reason: PAIN Last Admin: 05/31/16 18:21 Dose: 10 mg Oxycodone HCl (Roxicodone -) 10 mg PO Q5H PRN PRN Reason: PAIN Sertraline HCl (Zoloft -) 50 mg PO DAILY [facility] Last Admin: 05/31/16 13:21 Dose: 50 mg Sevelamer Carbonate (Renvela Powder Packet -) 2.4 gm PO TIDCM [facility] Last Admin: 05/31/16 16:51 Dose: Not Given Sitagliptin Phosphate (Januvia -) 25 mg PO ACBK [facility] Last Admin: 05/31/16 07:10 Dose: Not Given Sodium Thiosulfate (Sodium Thiosulfate) 25 gm IV MoWeFr@1300 [facility] Last Admin: 05/31/16 12:18 Dose: 25 gm - Objective Vital Signs: Vital Signs Temperature 98.1 F 05/31/16 18:01 Pulse Rate 95 H 05/31/16 18:01 Respiratory Rate 19 05/31/16 20:05 Blood Pressure 107/67 05/31/16 18:01 O2 Sat by Pulse Oximetry (%) 98 05/31/16 20:05 Cardiovascular: Yes: WNL, Regular Rate and Rhythm Respiratory: Yes: WNL, Regular, CTA Bilaterally Gastrointestinal: Yes: WNL, Normal Bowel Sounds, Soft Labs: CBC, BMP 05/31/16 09:20 05/31/16 09:20 INR, PTT INR 1.59 (0.82-1.09) H 05/11/16 13:20 Problem List - Problems (1) Cellulitis of foot Code(s): L03.119 - CELLULITIS OF UNSPECIFIED PART OF LIMB (2) Dyspnea Code(s): R06.00 - DYSPNEA, UNSPECIFIED (3) Afib Code(s): I48.91 - UNSPECIFIED ATRIAL FIBRILLATION (4) End stage renal disease Code(s): N18.6 - END STAGE RENAL DISEASE (5) Congestive heart failure Code(s): I50.9 - HEART FAILURE, UNSPECIFIED Qualifiers: Qualified Code(s): I50.23 - Acute on chronic systolic (congestive) heart failure (6) HTN (hypertension) Code(s): I10 - ESSENTIAL (PRIMARY) HYPERTENSION (7) Diabetes Code(s): E11.9 - TYPE 2 DIABETES MELLITUS WITHOUT COMPLICATIONS (8) Anemia Code(s): D64.9 - ANEMIA, UNSPECIFIED Qualifiers: Qualified Code(s): D64.9 - Anemia, unspecified (9) HLD (hyperlipidemia) Code(s): E78.5 - HYPERLIPIDEMIA, UNSPECIFIED
[2016-06-01] MEDS: oxyCODONE HCL 5 MG TABLET PO PRN ×3 (05:25→23:37)
[2016-06-01] MEDS: FUROSEMIDE 40 MG TABLET (FP) PO SCH ×2 (05:25→14:11)
[2016-06-01] MEDS: ACETAMINOPHEN 325 MG TABLET (FP) PO PRN ×3 (05:26→23:38)
[2016-06-01] MEDS: sitaGLIPtin PHOSPHATE 25 MG TABLET (FP) PO SCH (06:33)
[2016-06-01] MEDS: SEVELAMER CARBONATE 2.4 GM POWDER PACKET PO SCH ×3 (08:04→17:15)
[2016-06-01] MEDS ORDERED: PT OWN MED DRAWER 7, Y5N ONE (09:58)
[2016-06-01] MEDS: SERTRALINE HCL 50 MG TABLET (FP) PO SCH (10:09)
[2016-06-01] MEDS: METOPROLOL SUCCINATE 100 MG TAB.SR.24H (FP) PO SCH ×2 (10:09→23:37)
[2016-06-01] MEDS: FENOFIBRIC ACID 45 MG CAP PO SCH (10:09)
--- NOTE | 2016-06-01 10:53 | PN ---
Progress Note (short form) - Note Progress Note: For repeat angio today. Feels like he is retaining fluid. No CP or change in breathing. NPO Intake & Output 05/29/16 05/30/16 05/31/16 06/01/16 23:59 23:59 23:59 23:59 Intake Total 320 320 279 Output Total 0 0 Balance 320 320 279 Weight 207 lb 12.8 oz 201 lb 5 oz 201 lb 7 oz 198 lb 3 oz Last Vital Signs Temp Pulse Resp BP Pulse Ox 98.0 F 94 H 20 118/62 98 06/01/16 05:53 06/01/16 05:53 06/01/16 05:53 06/01/16 05:53 05/31/16 22:00 Active Medications Acetaminophen (Tylenol -) 650 mg PO Q6H PRN PRN Reason: PAIN Last Admin: 05/31/16 18:21 Dose: 650 mg Acetaminophen (Tylenol -) 650 mg PO Q5H PRN PRN Reason: FEVER OR PAIN Last Admin: 06/01/16 10:08 Dose: 650 mg Apixaban (Eliquis -) 5 mg PO BID [facility] Last Admin: 05/30/16 23:15 Dose: 5 mg Atorvastatin Calcium (Lipitor -) 10 mg PO HS [facility] Last Admin: 05/31/16 21:12 Dose: 10 mg Fenofibric Acid (Trilipix -) 45 mg PO DAILY [facility] Last Admin: 06/01/16 10:09 Dose: 45 mg Furosemide (Lasix -) 80 mg PO BIDLASIX [facility] Last Admin: 06/01/16 05:25 Dose: 80 mg Metoprolol Succinate (Toprol Xl -) 200 mg PO BID [facility] Last Admin: 06/01/16 10:09 Dose: 200 mg Oxycodone HCl (Roxicodone -) 10 mg PO Q6H PRN PRN Reason: PAIN Last Admin: 05/31/16 18:21 Dose: 10 mg Oxycodone HCl (Roxicodone -) 10 mg PO Q5H PRN PRN Reason: PAIN Last Admin: 06/01/16 10:08 Dose: 10 mg Sertraline HCl (Zoloft -) 50 mg PO DAILY [facility] Last Admin: 06/01/16 10:09 Dose: 50 mg Sevelamer Carbonate (Renvela Powder Packet -) 2.4 gm PO TIDCM [facility] Last Admin: 06/01/16 08:04 Dose: Not Given Sitagliptin Phosphate (Januvia -) 25 mg PO ACBK [facility] Last Admin: 06/01/16 06:33 Dose: Not Given Sodium Thiosulfate (Sodium Thiosulfate) 25 gm IV MoWeFr@1300 [facility] Last Admin: 05/31/16 12:18 Dose: 25 gm Constitutional: Yes: NAD Eyes: Yes: WNL HENT: Yes: WNL Neck: Yes: WNL Cardiovascular: Yes: Pulse Irregular, S1, S2 Respiratory: Yes: Diminished at the bases Gastrointestinal: Yes: Normal Bowel Sounds, Soft Extremities: Yes: Other : bandage Edema: Yes Labs: Laboratory Results - last 24 hr 06/01/16 06/01/16 05:34 07:50 POC Glucometer 108 Blood Type O POSITIVE Antibody Screen Negative Problem List - Problems (1) Afib Code(s): I48.91 - UNSPECIFIED ATRIAL FIBRILLATION (3) CHF exacerbation Code(s): I50.9 - HEART FAILURE, UNSPECIFIED Qualifiers: Congestive heart failure type: unspecified congestive heart failure type Qualified Code(s): I50.9 - Heart failure, unspecified (4) Cellulitis and abscess of foot Code(s): L03.119 - CELLULITIS OF UNSPECIFIED PART OF LIMB L02.619 - CUTANEOUS ABSCESS OF UNSPECIFIED FOOT (5) Microangiopathy, 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 (6) Anemia Code(s): D64.9 - ANEMIA, UNSPECIFIED Qualifiers: Anemia type: unspecified type Qualified Code(s): D64.9 - Anemia, unspecified (7) Atrial fibrillation with RVR Code(s): I48.91 - UNSPECIFIED ATRIAL FIBRILLATION (8) Bilateral shoulder pain Code(s): M25.511 - PAIN IN RIGHT SHOULDER M25.512 - PAIN IN LEFT SHOULDER (9) Cellulitis of foot Code(s): L03.119 - CELLULITIS OF UNSPECIFIED PART OF LIMB (10) Dyspnea on exertion Code(s): R06.09 - OTHER FORMS OF DYSPNEA (11) HTN (hypertension) Code(s): I10 - ESSENTIAL (PRIMARY) HYPERTENSION (12) Atrial flutter Code(s): I48.92 - UNSPECIFIED ATRIAL FLUTTER (13) CAD, multiple vessel Code(s): I25.10 - ATHSCL HEART DISEASE OF [place] CORONARY ARTERY W/O ANG PCTRS (14) Congestive heart failure Code(s): I50.9 - HEART FAILURE, UNSPECIFIED Qualifiers: Congestive heart failure type: systolic Congestive heart failure chronicity: acute on chronic Qualified Code(s): I50.23 - Acute on chronic systolic (congestive) heart failure (15) Diabetes Code(s): E11.9 - TYPE 2 DIABETES MELLITUS WITHOUT COMPLICATIONS (16) End stage renal disease Code(s): N18.6 - END STAGE RENAL DISEASE Assessment/Plan IMP DYSPNEA MULTIPLE FACTORS,CHF,COPD improved PULMONARY HTN ASHD S/P CABG ESRD ON HD AFIB HTN DM PVD CELLULITIS MODERATE OSAS BY PORTABLE TESTING -> 18.8 RDI PLAN HD PER RENAL ABX PER ID INHALED BRONCHODILATORS SUPPLEMENTAL O2 PFTS OUTPATIENT SLEEP WORKUP AN OUTPATIENT -> THUS FAR THE PATIENT IS REFUSING WORKUP -> RISKS AND BENEFITS EXPLAINED IN DETAIL DR PARK
--- NOTE | 2016-06-01 14:06 | PN ---
Progress Note, Physician Chief Complaint: The patient waiting for Angiogram and Angioplasty today. And for dialysis after that. Comfortable. by his bed. No chest pain, No shortness of breath. Maintains stable vital signs. History of Present Illness: Patient with ESRD, CHF, PCVD and Calciphylaxis. - Current Medication List Current Medications: Active Medications Acetaminophen (Tylenol -) 650 mg PO Q6H PRN PRN Reason: PAIN Last Admin: 05/31/16 18:21 Dose: 650 mg Acetaminophen (Tylenol -) 650 mg PO Q5H PRN PRN Reason: FEVER OR PAIN Last Admin: 06/01/16 10:08 Dose: 650 mg Apixaban (Eliquis -) 5 mg PO BID [facility] Last Admin: 05/30/16 23:15 Dose: 5 mg Atorvastatin Calcium (Lipitor -) 10 mg PO HS [facility] Last Admin: 05/31/16 21:12 Dose: 10 mg Fenofibric Acid (Trilipix -) 45 mg PO DAILY [facility] Last Admin: 06/01/16 10:09 Dose: 45 mg Furosemide (Lasix -) 80 mg PO BIDLASIX [facility] Last Admin: 06/01/16 05:25 Dose: 80 mg Metoprolol Succinate (Toprol Xl -) 200 mg PO BID [facility] Last Admin: 06/01/16 10:09 Dose: 200 mg Oxycodone HCl (Roxicodone -) 10 mg PO Q6H PRN PRN Reason: PAIN Last Admin: 05/31/16 18:21 Dose: 10 mg Oxycodone HCl (Roxicodone -) 10 mg PO Q5H PRN PRN Reason: PAIN Last Admin: 06/01/16 10:08 Dose: 10 mg Sertraline HCl (Zoloft -) 50 mg PO DAILY [facility] Last Admin: 06/01/16 10:09 Dose: 50 mg Sevelamer Carbonate (Renvela Powder Packet -) 2.4 gm PO TIDCM [facility] Last Admin: 06/01/16 11:20 Dose: Not Given Sitagliptin Phosphate (Januvia -) 25 mg PO ACBK [facility] Last Admin: 06/01/16 06:33 Dose: Not Given Sodium Thiosulfate (Sodium Thiosulfate) 25 gm IV MoWeFr@1300 [facility] Last Admin: 05/31/16 12:18 Dose: 25 gm - Objective Vital Signs: Vital Signs Temperature 97.6 F 04/06/17 10:00 Pulse Rate 85 06/01/16 10:00 Respiratory Rate 18 06/01/16 10:00 Blood Pressure 139/71 06/01/16 10:00 O2 Sat by Pulse Oximetry (%) 98 06/01/16 09:00 Constitutional: Yes: No Distress, Calm Eyes: No: WNL, Conjunctiva Clear, EOM Intact, Cataracts, Diplopia, Occular Prosthesis, PERRL, Ptosis, Sclera Icterus, Tearing, Other HENT: No: WNL, Atraumatic, Normocephalic, Drooling, Epistaxis, Hoarseness, Nasal Congestion, Pharyngeal Erythema, Rhinnorhea, Thrush, Tonsillar Exudate, Other Neck: No: WNL, Supple, Trachea Midline, Decreased ROM, Lymphadenopathy, Rigid, Tenderness, Thyromegaly, Other Respiratory: Yes: CTA Bilaterally, Diminished, Hyperresonant Gastrointestinal: No: WNL, Normal Bowel Sounds, Soft, Abdomen, Obese, Ascites, Distention, Hematemesis, Hemorrhoids, Hepatomegaly, Hernia, Hyperactive Bowel Sounds, Hypoactive Bowel Sounds, Melena, Palpable Mass, Pulsatile Mass, Rectal Bleeding, Splenomegaly, Tenderness, Tenderness, Epigastrium, Tenderness, Rebound , Vomiting, Other Labs: CBC, BMP 05/31/16 09:20 05/31/16 09:20 INR, PTT INR 1.59 (0.82-1.09) H 05/11/16 13:20 Problem List - Problems (1) Afib Code(s): I48.91 - UNSPECIFIED ATRIAL FIBRILLATION (2) CHF exacerbation Code(s): I50.9 - HEART FAILURE, UNSPECIFIED Qualifiers: Congestive heart failure type: unspecified congestive heart failure type Qualified Code(s): I50.9 - Heart failure, unspecified (3) HLD (hyperlipidemia) Code(s): E78.5 - HYPERLIPIDEMIA, UNSPECIFIED (4) Microangiopathy, 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 (5) Anemia Code(s): D64.9 - ANEMIA, UNSPECIFIED Qualifiers: Anemia type: unspecified type Qualified Code(s): D64.9 - Anemia, unspecified (6) Cellulitis of foot Code(s): L03.119 - CELLULITIS OF UNSPECIFIED PART OF LIMB (7) HTN (hypertension) Code(s): I10 - ESSENTIAL (PRIMARY) HYPERTENSION (8) Renal failure Code(s): N19 - UNSPECIFIED KIDNEY FAILURE (9) End stage chronic kidney disease Code(s): N18.6 - END STAGE RENAL DISEASE Z99.2 - DEPENDENCE ON RENAL DIALYSIS Assessment/Plan Patient with ESRD, with Peripheral vascular disease, LE ulceration and s/ p vascular intervention and stenting. For repeat angiogram and stenting of the left LE today. For Sodium Thiosulfate post dialysis, for Calciphylaxis. Patient to get a short dialysis today after te angiogram, and to get his regular HD tomorrow. Thanks you. Shayna Enriquez MD
[2016-06-01] MEDS ORDERED: LIDOCAINE HCL 1%, 10 MG/ML (20ML VIAL) ONE (15:59)
[2016-06-01] MEDS ORDERED: HEPARIN NA (PORCINE) 5,000 UNITS/ML 1ML VIAL ONE ×2 (15:59→17:13)
[2016-06-01] MEDS ORDERED: ONDANSETRON 4 MG/2 ML VIAL IVPUSH PRN ×2 (16:02→19:20)
[2016-06-01] MEDS ORDERED: PROMETHAZINE HCL 25 MG/1 ML VIAL IVPUSH PRN ×2 (16:02→19:20)
[2016-06-01] MEDS ORDERED: SODIUM CHLORIDE 1,000 ML IV SCH ×2 (16:15→19:20)
[2016-06-01] MEDS ORDERED: MIDAZOLAM HCL 2 MG/2 ML SINGLE DOSE VIAL ONE (16:16)
[2016-06-01] MEDS ORDERED: LIDOCAINE HCL 1%, 10 MG/ML (20ML VIAL) IJ ONE (16:58)
--- NOTE | 2016-06-01 18:44 | OP ---
Operative Note - Note: Operative Date: 06/01/16 Pre-Operative Diagnosis: Gangrene toes left foot Operation: Revascularization left tibial artery with angioplasty Findings: Calcified vessels at all levels. Patent femoral and popliteal arteries with areas of narrowing and no severe stenosis. Occlusion of anterior tibial artery. Small DPA in foot. Patent posterior tibial with diffuse narrowing and several areas of high-grade stenosis. Runoff in foot is severely limited. Peroneal is severely narrowed with limited runoff. Angioplasty of PT with 2.5 mm balloon. Pedal artery treated with 2.0 mm balloon.
[2016-06-01] MEDS ORDERED: oxyCODONE HCL 5 MG TABLET PO PRN (19:20)
[2016-06-01] MEDS ORDERED: ACETAMINOPHEN 325 MG TABLET (FP) PO PRN (19:20)
[2016-06-01] MEDS ORDERED: morphine CARPU-JECT 4 MG/1 ML DISP.SYRIN IVPUSH ONE (19:20)
--- NOTE | 2016-06-01 22:32 | PN ---
Progress Note, Physician History of Present Illness: Pt tolerated procedure - Current Medication List Current Medications: Active Medications Acetaminophen (Tylenol -) 650 mg PO Q6H PRN PRN Reason: PAIN Acetaminophen (Tylenol -) 650 mg PO Q5H PRN PRN Reason: FEVER OR PAIN Apixaban (Eliquis -) 5 mg PO BID [facility] Atorvastatin Calcium (Lipitor -) 10 mg PO HS [facility] Fenofibric Acid (Trilipix -) 45 mg PO DAILY [facility] Furosemide (Lasix -) 80 mg PO BIDLASIX [facility] Metoprolol Succinate (Toprol Xl -) 200 mg PO BID [facility] Oxycodone HCl (Roxicodone -) 10 mg PO Q6H PRN PRN Reason: PAIN Oxycodone HCl (Roxicodone -) 10 mg PO Q5H PRN PRN Reason: PAIN Sertraline HCl (Zoloft -) 50 mg PO DAILY [facility] Sevelamer Carbonate (Renvela Powder Packet -) 2.4 gm PO TIDCM [facility] Sitagliptin Phosphate (Januvia -) 25 mg PO ACBK [facility] Sodium Thiosulfate (Sodium Thiosulfate) 25 gm IV MoWeFr@1300 [facility] - Objective Vital Signs: Vital Signs Temperature 97.8 F 06/01/16 20:00 Pulse Rate 81 06/01/16 21:45 Respiratory Rate 18 06/01/16 21:45 Blood Pressure 131/65 06/01/16 21:45 O2 Sat by Pulse Oximetry (%) 100 06/01/16 19:45 Constitutional: Yes: Well Nourished Neck: Yes: Supple Cardiovascular: Yes: WNL, Pulse Irregular Respiratory: Yes: WNL, Regular, CTA Bilaterally Gastrointestinal: Yes: WNL, Normal Bowel Sounds, Soft Extremities: Yes: Other (Lt foot in bandages) Labs: CBC, BMP 05/31/16 09:20 05/31/16 09:20 INR, PTT INR 1.59 (0.82-1.09) H 05/11/16 13:20 Problem List - Problems (1) Cellulitis of foot Assessment/Plan: Pt had angioplasty again today of popitial tibial Pt received dialysis after procedure Chronic lt foot ulcer S/P B/L stenting of common iliacs Pt is now off antibxs Code(s): L03.119 - CELLULITIS OF UNSPECIFIED PART OF LIMB (2) Dyspnea Assessment/Plan: Multifactorial Due to chf/volume overload/COPD/sleep apnea Out pt PFT's/sleep study Cont inhalers Volume status may be fluctuating with dialysis Cont lasix BID Code(s): R06.00 - DYSPNEA, UNSPECIFIED (3) Afib Assessment/Plan: Cont metoprolol/eliquis Code(s): I48.91 - UNSPECIFIED ATRIAL FIBRILLATION (4) End stage renal disease Assessment/Plan: Dialysis as per renal Monitor electrolytes Cont renvela Code(s): N18.6 - END STAGE RENAL DISEASE (5) Congestive heart failure Assessment/Plan: Chronic systolic heart failure Cont po lasix bid Monitor electrolytes Code(s): I50.9 - HEART FAILURE, UNSPECIFIED Qualifiers: Congestive heart failure type: systolic Congestive heart failure chronicity: acute on chronic Qualified Code(s): I50.23 - Acute on chronic systolic (congestive) heart failure (6) HTN (hypertension) Assessment/Plan: BP stable Cont metoprolol Code(s): I10 - ESSENTIAL (PRIMARY) HYPERTENSION (7) Diabetes Assessment/Plan: Cont januvia Code(s): E11.9 - TYPE 2 DIABETES MELLITUS WITHOUT COMPLICATIONS (8) Anemia Assessment/Plan: Due to chronic dz Code(s): D64.9 - ANEMIA, UNSPECIFIED Qualifiers: Anemia type: unspecified type Qualified Code(s): D64.9 - Anemia, unspecified (9) HLD (hyperlipidemia) Assessment/Plan: Cont lipitor/fenofibrate Code(s): E78.5 - HYPERLIPIDEMIA, UNSPECIFIED
[2016-06-01] MEDS: ATORVASTATIN CA 10 MG TABLET (FP) PO SCH (23:38)
[2016-06-02] MEDS: oxyCODONE HCL 5 MG TABLET PO PRN (04:44)
[2016-06-02] MEDS: ACETAMINOPHEN 325 MG TABLET (FP) PO PRN (04:45)
[2016-06-02] MEDS: FUROSEMIDE 40 MG TABLET (FP) PO SCH ×2 (06:19→14:58)
[2016-06-02] MEDS: sitaGLIPtin PHOSPHATE 25 MG TABLET (FP) PO SCH (06:22)
--- NOTE | 2016-06-02 08:41 | PN ---
Progress Note (short form) - Note Progress Note: S/p angioplasty of left [employer]. VSSC/o pain in finger and toes Left forefoot warm, toes cold and gangrenous. Patient informed that TMA will be needed and if that doesn't heal a BKA. He is understandable upset and crying, "I wan to ." I explained that if TMA heals he can walk normally. Increase pain medication. OOB.
[2016-06-02] MEDS: morphine SULFATE IMMEDIATE RELEASE 30 MG TAB PO PRN ×3 (08:45→18:55)
[2016-06-02] MEDS: SEVELAMER CARBONATE 2.4 GM POWDER PACKET PO SCH ×3 (08:47→17:31)
[2016-06-02] MEDS: SERTRALINE HCL 50 MG TABLET (FP) PO SCH (09:31)
[2016-06-02] MEDS: FENOFIBRIC ACID 45 MG CAP PO SCH (09:31)
[2016-06-02] MEDS: METOPROLOL SUCCINATE 100 MG TAB.SR.24H (FP) PO SCH ×2 (09:31→22:13)
[2016-06-02] MEDS: APIXABAN 5 MG TABLET PO SCH ×2 (09:31→22:13)
[2016-06-02] MEDS ORDERED: SODIUM THIOSULFATE 12.5 GM/50 ML VIAL IV SCH (13:00)
--- NOTE | 2016-06-02 16:36 | PN ---
Progress Note (short form) - Note Progress Note: Renal Follow up for ESRD Pt seen and examined during dialysis BP stable Goal UF is 2.5-3L pt is very upset at the thought of TMA denies any sob or chest pain Vital Signs Temperature 97.8 F 06/02/16 15:10 Pulse Rate 98 H 06/02/16 15:45 Respiratory Rate 18 06/02/16 15:45 Blood Pressure 107/52 06/02/16 15:45 O2 Sat by Pulse Oximetry (%) 100 06/01/16 19:45 Intake & Output 05/30/16 05/31/16 06/01/16 06/02/16 23:59 23:59 23:59 23:59 Intake Total 320 279 600 400 Output Total 0 5 Balance 320 279 595 400 Weight 201 lb 5 oz 201 lb 7 oz 198 lb 3 oz 199 lb 8 oz Gen: awake and alert CVS: RRR, No M/R Lungs: CTA, no rales or wheeze Abd: soft NT/ND Ext: Trace edema in LE. CBC, BMP 05/31/16 09:20 05/31/16 09:20 Laboratory Tests 05/31/16 09:20 Calcium 8.6 Phosphorus 5.3 H Current Medications Acetaminophen (Tylenol -) 650 mg PO Q6H PRN PRN Reason: PAIN Last Admin: 06/02/16 04:45 Dose: 650 mg Acetaminophen (Tylenol -) 650 mg PO Q5H PRN PRN Reason: FEVER OR PAIN Apixaban (Eliquis -) 5 mg PO BID [facility] Last Admin: 06/02/16 09:31 Dose: Not Given Atorvastatin Calcium (Lipitor -) 10 mg PO HS [facility] Last Admin: 06/01/16 23:38 Dose: 10 mg Fenofibric Acid (Trilipix -) 45 mg PO DAILY [facility] Last Admin: 06/02/16 09:31 Dose: Not Given Furosemide (Lasix -) 80 mg PO BIDLASIX [facility] Last Admin: 06/02/16 14:58 Dose: Not Given Metoprolol Succinate (Toprol Xl -) 200 mg PO BID [facility] Last Admin: 06/02/16 09:31 Dose: Not Given Morphine Sulfate (Msir -) 30 mg PO Q4H PRN PRN Reason: PAIN Last Admin: 06/02/16 12:42 Dose: 30 mg Sertraline HCl (Zoloft -) 50 mg PO DAILY [facility] Last Admin: 06/02/16 09:31 Dose: Not Given Sevelamer Carbonate (Renvela Powder Packet -) 2.4 gm PO TIDCM [facility] Last Admin: 06/02/16 12:30 Dose: Not Given Sitagliptin Phosphate (Januvia -) 25 mg PO ACBK [facility] Last Admin: 06/02/16 06:22 Dose: 25 mg Sodium Thiosulfate (Sodium Thiosulfate) 25 gm IV MoWeFr@1300 [facility] A/P 60 year old gentleman with PMhx of ESRD (recently started on dialysis), CAD s/p CABG, DM Type 2, Depression, CHF who with LE weakness s/p recent fall and wound on right foot. 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
--- NOTE | 2016-06-02 17:19 | CONSULT ---
Consult - text type - Consultation Consultation Note: PM&R/Interventional pain mgmt C: Left foot pain HPI: This is a 60 yo man with history of PVD. He was currently admitted to the hospital and left underwent left lower extremity bypass. He currently continues to have Left leg pain that is responding to Morphine. PMH: HTN, HLD, systolic CHF, S/P CABG, ESRD on HD. Afib, diabetes, GERD and depression. A: 1. Peripheral Vascular Disease 2. Left leg pain P: 1. Decrease Morphine IR 30mg from Q4 hrs to Q6hrs as needed for pain. 2. Start Morphine SR 30mg BID. 3. If patient has good and sustained relief with SR, IR can be tapered off. 4. Recommend referral to a pain mgmt clinic on outpt basis as I do not manage pain medications on outpt basis. 5. Thank you for the consult. Please call with questions.
[2016-06-02] MEDS ORDERED: PT OWN MED DRAWER 7, Y5N ONE (22:11)
[2016-06-02] MEDS: morphine SO4 SUSTAINED ACTING 15 MG TABLET.SA PO SCH (22:12)
[2016-06-02] MEDS: ATORVASTATIN CA 10 MG TABLET (FP) PO SCH (22:13)
--- NOTE | 2016-06-02 22:31 | PN ---
Progress Note, Physician History of Present Illness: No new complaints - Current Medication List Current Medications: Active Medications Acetaminophen (Tylenol -) 650 mg PO Q6H PRN PRN Reason: PAIN Last Admin: 06/02/16 04:45 Dose: 650 mg Acetaminophen (Tylenol -) 650 mg PO Q5H PRN PRN Reason: FEVER OR PAIN Apixaban (Eliquis -) 5 mg PO BID [facility] Last Admin: 06/02/16 22:13 Dose: 5 mg Atorvastatin Calcium (Lipitor -) 10 mg PO HS [facility] Last Admin: 06/02/16 22:13 Dose: 10 mg Fenofibric Acid (Trilipix -) 45 mg PO DAILY [facility] Last Admin: 06/02/16 09:31 Dose: Not Given Furosemide (Lasix -) 80 mg PO BIDLASIX [facility] Last Admin: 06/02/16 14:58 Dose: Not Given Metoprolol Succinate (Toprol Xl -) 200 mg PO BID [facility] Last Admin: 06/02/16 22:13 Dose: Not Given Morphine Sulfate (Msir -) 30 mg PO Q6H PRN PRN Reason: PAIN Last Admin: 06/02/16 18:55 Dose: 30 mg Morphine Sulfate (Ms Contin -) 30 mg PO BID [facility] Last Admin: 06/02/16 22:12 Dose: 30 mg Sertraline HCl (Zoloft -) 50 mg PO DAILY [facility] Last Admin: 06/02/16 09:31 Dose: Not Given Sevelamer Carbonate (Renvela Powder Packet -) 2.4 gm PO TIDCM [facility] Last Admin: 06/02/16 17:31 Dose: Not Given Sitagliptin Phosphate (Januvia -) 25 mg PO ACBK [facility] Last Admin: 06/02/16 06:22 Dose: 25 mg Sodium Thiosulfate (Sodium Thiosulfate) 25 gm IV MoWeFr@1300 [facility] Last Admin: 06/02/16 17:22 Dose: 25 gm - Objective Vital Signs: Vital Signs Temperature 97.8 F 06/02/16 15:10 Pulse Rate 60 06/02/16 18:53 Respiratory Rate 18 06/02/16 18:53 Blood Pressure 125/57 06/02/16 18:53 O2 Sat by Pulse Oximetry (%) 100 06/01/16 19:45 Cardiovascular: Yes: WNL, Regular Rate and Rhythm Respiratory: Yes: WNL, Regular, CTA Bilaterally Gastrointestinal: Yes: WNL, Normal Bowel Sounds, Soft Labs: CBC, BMP 05/31/16 09:20 05/31/16 09:20 INR, PTT INR 1.59 (0.82-1.09) H 05/11/16 13:20 Problem List - Problems (1) Cellulitis of foot Code(s): L03.119 - CELLULITIS OF UNSPECIFIED PART OF LIMB (2) Dyspnea Code(s): R06.00 - DYSPNEA, UNSPECIFIED (3) Afib Code(s): I48.91 - UNSPECIFIED ATRIAL FIBRILLATION (4) End stage renal disease Code(s): N18.6 - END STAGE RENAL DISEASE (5) Congestive heart failure Code(s): I50.9 - HEART FAILURE, UNSPECIFIED Qualifiers: Qualified Code(s): I50.23 - Acute on chronic systolic (congestive) heart failure (6) HTN (hypertension) Code(s): I10 - ESSENTIAL (PRIMARY) HYPERTENSION (7) Diabetes Code(s): E11.9 - TYPE 2 DIABETES MELLITUS WITHOUT COMPLICATIONS (8) Anemia Code(s): D64.9 - ANEMIA, UNSPECIFIED Qualifiers: Qualified Code(s): D64.9 - Anemia, unspecified (9) HLD (hyperlipidemia) Code(s): E78.5 - HYPERLIPIDEMIA, UNSPECIFIED
[2016-06-03] MEDS: morphine SULFATE IMMEDIATE RELEASE 30 MG TAB PO PRN ×2 (05:18→16:21)
[2016-06-03] MEDS ORDERED: PT OWN MED DRAWER 7, Y5N ONE ×4 (06:18→20:54)
[2016-06-03] MEDS: FUROSEMIDE 40 MG TABLET (FP) PO SCH ×2 (07:04→13:17)
[2016-06-03] MEDS: sitaGLIPtin PHOSPHATE 25 MG TABLET (FP) PO SCH (07:04)
[2016-06-03] MEDS: SEVELAMER CARBONATE 2.4 GM POWDER PACKET PO SCH ×3 (08:36→17:25)
[2016-06-03] MEDS: morphine SO4 SUSTAINED ACTING 15 MG TABLET.SA PO SCH ×2 (09:13→21:34)
[2016-06-03] MEDS: SERTRALINE HCL 50 MG TABLET (FP) PO SCH (09:18)
[2016-06-03] MEDS: METOPROLOL SUCCINATE 100 MG TAB.SR.24H (FP) PO SCH ×2 (09:19→21:32)
[2016-06-03] MEDS: APIXABAN 5 MG TABLET PO SCH ×2 (09:37→21:51)
[2016-06-03] MEDS: FENOFIBRIC ACID 45 MG CAP PO SCH (09:37)
--- NOTE | 2016-06-03 10:52 | PN ---
Progress Note (short form) - Note Progress Note: Renal Follow up for ESRD Pt seen and examined at the bedside had darkening and tenderness of his finger no sob or chest pain Vital Signs Temperature 97.5 F L 06/03/16 06:00 Pulse Rate 97 H 06/03/16 06:00 Respiratory Rate 14 06/03/16 06:00 Blood Pressure 104/57 06/03/16 06:00 O2 Sat by Pulse Oximetry (%) 100 06/02/16 22:00 Intake & Output 05/31/16 06/01/16 06/02/16 06/03/16 23:59 23:59 23:59 23:59 Intake Total 279 600 700 300 Output Total 0 5 Balance 279 595 700 300 Weight 201 lb 7 oz 198 lb 3 oz 199 lb 8 oz 198 lb 1.6 oz Gen: awake and alert CVS: RRR, No M/R Lungs: CTA, no rales or wheeze Abd: soft NT/ND Ext: Trace edema in LE. cyanosis of right hand finger CBC, BMP 05/31/16 09:20 05/31/16 09:20 Current Medications Acetaminophen (Tylenol -) 650 mg PO Q6H PRN PRN Reason: PAIN Last Admin: 06/02/16 04:45 Dose: 650 mg Acetaminophen (Tylenol -) 650 mg PO Q5H PRN PRN Reason: FEVER OR PAIN Apixaban (Eliquis -) 5 mg PO BID [facility] Last Admin: 06/03/16 09:37 Dose: 5 mg Atorvastatin Calcium (Lipitor -) 10 mg PO HS [facility] Last Admin: 06/02/16 22:13 Dose: 10 mg Fenofibric Acid (Trilipix -) 45 mg PO DAILY [facility] Last Admin: 06/03/16 09:37 Dose: 45 mg Furosemide (Lasix -) 80 mg PO BIDLASIX [facility] Last Admin: 06/03/16 07:04 Dose: Not Given Metoprolol Succinate (Toprol Xl -) 200 mg PO BID [facility] Last Admin: 06/03/16 09:19 Dose: Not Given Morphine Sulfate (Msir -) 30 mg PO Q6H PRN PRN Reason: PAIN Last Admin: 06/03/16 05:18 Dose: 30 mg Morphine Sulfate (Ms Contin -) 30 mg PO BID [facility] Last Admin: 06/03/16 09:13 Dose: 30 mg Sertraline HCl (Zoloft -) 50 mg PO DAILY [facility] Last Admin: 06/03/16 09:18 Dose: 50 mg Sevelamer Carbonate (Renvela Powder Packet -) 2.4 gm PO TIDCM [facility] Last Admin: 06/03/16 08:36 Dose: Not Given Sitagliptin Phosphate (Januvia -) 25 mg PO ACBK [facility] Last Admin: 06/03/16 07:04 Dose: Not Given Sodium Thiosulfate (Sodium Thiosulfate) 25 gm IV MoWeFr@1300 [facility] Last Admin: 06/02/16 17:22 Dose: 25 gm A/P 60 year old gentleman with PMhx of ESRD (recently started on dialysis), CAD s/p CABG, DM Type 2, Depression, CHF who with LE weakness s/p recent fall and wound on right foot. 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
[2016-06-03] MEDS: ASPIRIN COATED 81 MG TABLET.EC PO SCH (13:16)
[2016-06-03] MEDS: ACETAMINOPHEN 325 MG TABLET (FP) PO PRN (13:28)
--- NOTE | 2016-06-03 17:22 | PN ---
Progress Note, Physician History of Present Illness: No new complaints - Current Medication List Current Medications: Active Medications Acetaminophen (Tylenol -) 650 mg PO Q6H PRN PRN Reason: PAIN Last Admin: 06/03/16 13:28 Dose: 650 mg Acetaminophen (Tylenol -) 650 mg PO Q5H PRN PRN Reason: FEVER OR PAIN Apixaban (Eliquis -) 5 mg PO BID [facility] Last Admin: 06/03/16 09:37 Dose: 5 mg Aspirin (Ecotrin -) 81 mg PO DAILY [facility] Last Admin: 06/03/16 13:16 Dose: 81 mg Atorvastatin Calcium (Lipitor -) 10 mg PO HS [facility] Last Admin: 06/02/16 22:13 Dose: 10 mg Fenofibric Acid (Trilipix -) 45 mg PO DAILY [facility] Last Admin: 06/03/16 09:37 Dose: 45 mg Furosemide (Lasix -) 80 mg PO BIDLASIX [facility] Last Admin: 06/03/16 13:17 Dose: 80 mg Metoprolol Succinate (Toprol Xl -) 200 mg PO BID [facility] Last Admin: 06/03/16 09:19 Dose: Not Given Morphine Sulfate (Msir -) 30 mg PO Q6H PRN PRN Reason: PAIN Last Admin: 06/03/16 16:21 Dose: 30 mg Morphine Sulfate (Ms Contin -) 30 mg PO BID [facility] Last Admin: 06/03/16 09:13 Dose: 30 mg Sertraline HCl (Zoloft -) 50 mg PO DAILY [facility] Last Admin: 06/03/16 09:18 Dose: 50 mg Sevelamer Carbonate (Renvela Powder Packet -) 2.4 gm PO TIDCM [facility] Last Admin: 06/03/16 13:17 Dose: Not Given Sitagliptin Phosphate (Januvia -) 25 mg PO ACBK [facility] Last Admin: 06/03/16 07:04 Dose: Not Given Sodium Thiosulfate (Sodium Thiosulfate) 25 gm IV MoWeFr@1300 [facility] Last Admin: 06/02/16 17:22 Dose: 25 gm - Objective Vital Signs: Vital Signs Temperature 97.2 F L 06/03/16 13:50 Pulse Rate 102 H 06/03/16 13:50 Respiratory Rate 17 06/03/16 13:50 Blood Pressure 102/52 06/03/16 13:50 O2 Sat by Pulse Oximetry (%) 97 06/03/16 10:00 Cardiovascular: Yes: WNL, Regular Rate and Rhythm Respiratory: Yes: WNL, Regular, CTA Bilaterally Gastrointestinal: Yes: WNL, Normal Bowel Sounds, Soft Labs: CBC, BMP 05/31/16 09:20 05/31/16 09:20 INR, PTT INR 1.59 (0.82-1.09) H 05/11/16 13:20 Problem List - Problems (1) Cellulitis of foot Code(s): L03.119 - CELLULITIS OF UNSPECIFIED PART OF LIMB (2) Dyspnea Code(s): R06.00 - DYSPNEA, UNSPECIFIED (3) Afib Code(s): I48.91 - UNSPECIFIED ATRIAL FIBRILLATION (4) End stage renal disease Code(s): N18.6 - END STAGE RENAL DISEASE (5) Congestive heart failure Code(s): I50.9 - HEART FAILURE, UNSPECIFIED Qualifiers: Qualified Code(s): I50.23 - Acute on chronic systolic (congestive) heart failure (6) HTN (hypertension) Code(s): I10 - ESSENTIAL (PRIMARY) HYPERTENSION (7) Diabetes Code(s): E11.9 - TYPE 2 DIABETES MELLITUS WITHOUT COMPLICATIONS (8) Anemia Code(s): D64.9 - ANEMIA, UNSPECIFIED Qualifiers: Qualified Code(s): D64.9 - Anemia, unspecified (9) HLD (hyperlipidemia) Code(s): E78.5 - HYPERLIPIDEMIA, UNSPECIFIED
--- NOTE | 2016-06-03 19:57 | PN ---
Progress Note (short form) - Note Progress Note: Right 4th finger tip ischemia has progressed and distal phalanx appears gangrenous. Doppler study shows triphasic flow into palm. Distal arteriolar occlusion is likely cause of the microcirculatory problem. Unfortunately, there is no treatment other than amputation when finger demarcates.
[2016-06-03] MEDS: ATORVASTATIN CA 10 MG TABLET (FP) PO SCH (21:32)
[2016-06-04] MEDS: morphine SULFATE IMMEDIATE RELEASE 30 MG TAB PO PRN ×2 (00:21→17:41)
[2016-06-04] MEDS ORDERED: PT OWN MED DRAWER 7, Y5N ONE ×3 (05:32→21:35)
[2016-06-04] MEDS: sitaGLIPtin PHOSPHATE 25 MG TABLET (FP) PO SCH (06:31)
[2016-06-04] MEDS: FUROSEMIDE 40 MG TABLET (FP) PO SCH ×2 (06:32→14:49)
[2016-06-04] MEDS: SEVELAMER CARBONATE 2.4 GM POWDER PACKET PO SCH ×4 (10:04→16:50)
[2016-06-04] MEDS: FENOFIBRIC ACID 45 MG CAP PO SCH (10:34)
[2016-06-04] MEDS: SERTRALINE HCL 50 MG TABLET (FP) PO SCH (10:34)
[2016-06-04] MEDS: ASPIRIN COATED 81 MG TABLET.EC PO SCH (10:34)
[2016-06-04] MEDS: morphine SO4 SUSTAINED ACTING 15 MG TABLET.SA PO SCH ×2 (10:35→21:43)
[2016-06-04] MEDS: METOPROLOL SUCCINATE 100 MG TAB.SR.24H (FP) PO SCH ×2 (10:35→21:44)
[2016-06-04] MEDS: APIXABAN 5 MG TABLET PO SCH ×2 (10:35→21:43)
--- NOTE | 2016-06-04 18:05 | OP ---
DATE OF OPERATION: 05/26/2016 SURGEON: Fer Malone MD OBGYN SPECIALIST: ARIEL Rivero PROCEDURE: Bilateral femoral artery cannulation; angiogram of aorta, bilateral iliac arteries and left lower extremity; placement of bilateral common iliac artery stents. PREOPERATIVE DIAGNOSIS: Ischemic left foot. POSTOPERATIVE DIAGNOSIS: Ischemic left foot, with bilateral iliac artery stenosis. ANESTHESIA: Fractional. ANESTHESIOLOGIST: Terrell Donohue MD OPERATIVE FINDINGS: There was calcific atherosclerotic disease of the abdominal aorta, both iliac and left femoral arteries. There was a 90% stenosis of the proximal left common iliac artery. There was approximately 50% stenosis on the right common iliac. OPERATIVE PROCEDURE: Following routine patient identification with side and site verification, intravenous sedation was established. Both groins and lower abdomen were prepped with ChloraPrep. Using realtime duplex imaging, the right common femoral artery was identified at a point proximal to the bifurcation. Xylocaine 1% was infiltrated in the skin over the artery and the artery was cannulated under ultrasound guidance with a micropuncture needle. A wire was passed proximally into the iliac artery and the needle was exchanged for a 5-Zambian catheter. An angled-tip Glidewire was then advanced proximally into the abdominal aorta. The catheter was exchanged for a 5-[place]ambian sheath. An Omni Flush catheter was placed over the wire and positioned in the abdominal aorta. Angiogram of aorta and both iliac arteries was then obtained using digital technique. An attempt was made to pass the wire through the left common iliac artery stenosis from above but this was unsuccessful. Therefore, the left common iliac artery was cannulated with ultrasound guidance in a similar fashion. A 6-Zambian sheath was placed over the wire. Then angled wire was then passed proximally through the area of stenosis into the abdominal aorta. The patient was systemically heparinized. Balloon angioplasty of the common iliac artery with a 5 and then an 8 mm balloon was performed to obtain sizing. Sheaths were up-sized to 7 mm, 7-Zambian bilaterally, and then bilateral common iliac artery stents were placed simultaneously in a kissing-stent configuration. On the right side, a 9-mm x 26-mm Valeo stent was placed, and on the left side a 9-mm x 37-mm Visi-Pro stent was placed. Following inflation, the balloons were removed and repeat angiography revealed good flow through both sides with no residual stenoses seen. Angiography of the left lower extremity was then done through the sheath and visualized the femoral and distal vessels. There was no severe stenosis seen above the knee. Both sheaths were then removed and the puncture sites sealed with Perclose devices. Dermabond glue was applied as dressing and the patient was taken to the recovery area in stable condition. FER MALONE M.D. [id number]
--- NOTE | 2016-06-04 18:46 | OP ---
DATE OF OPERATION: 06/01/2016 SURGEON: Fer Malone MD PROCEDURE: Revascularization of the left posterior tibial artery with angioplasty. PREOPERATIVE DIAGNOSIS: Gangrene, left forefoot. POSTOPERATIVE DIAGNOSIS: Gangrene, left forefoot. ANESTHESIA: Fractional. OPERATIVE FINDINGS: There are diffusely calcified arteries from the femoral to the foot. There was occlusion of the anterior tibial artery with reconstitution of a small dorsalis pedis artery in the foot. There was severe stenosis of the peroneal artery with limited distal runoff. The posterior tibial was patent with diffuse narrowing and several areas of high-grade stenosis. Runoff into the foot was severely limited with absence of a pedal arch or distal arterial vasculature seen on delayed angiography. OPERATIVE PROCEDURE: The patient was brought to the operating room and intravenous sedation was established. The left groin was prepped with ChloraPrep. Under realtime duplex imaging, the left femoral artery was identified and was then cannulated with a micropuncture needle. This was done in antegrade fashion. The wire was passed distally into the femoral artery and the needle exchanged for a 5-Chadian catheter. A wire was passed down to the level of the popliteal artery. The catheter was exchanged for a 5-Chadian sheath. A Ruelas catheter was then advanced over the wire and positioned at the level of the knee. Angiography was then performed through the sheath and catheter with the above-noted findings. The patient was systemically heparinized. A 0.018-inch wire was then advanced into the origin of the posterior tibial artery. A support catheter was placed over the wire. The wire and catheter were then advanced distally to the mid calf. The wire was then exchanged out for a 0.014-inch wire and catheter system, which were able to be passed distally to the level of the plantar artery in the foot. The patient was systemically heparinized. Dilatation of the distal posterior tibial artery with 2-mm balloon was performed and then a tapered 2.0 to 2.5 mm balloon used to treat the proximal posterior tibial artery. Completion imaging revealed improved flow and no residual stenosis in the treated areas. The wire and catheters were removed. The sheath was removed using a StarClose device to seal the arteriotomy. Sterile dressing was applied and the patient was taken to the recovery room in stable condition. FER MALONE M.D. [id number]
[2016-06-04] MEDS: ATORVASTATIN CA 10 MG TABLET (FP) PO SCH (21:43)
--- NOTE | 2016-06-04 23:45 | PN ---
Progress Note, Physician History of Present Illness: Pt feels that his rt finger is worse - Current Medication List Current Medications: Active Medications Acetaminophen (Tylenol -) 650 mg PO Q6H PRN PRN Reason: PAIN Last Admin: 06/03/16 13:28 Dose: 650 mg Acetaminophen (Tylenol -) 650 mg PO Q5H PRN PRN Reason: FEVER OR PAIN Apixaban (Eliquis -) 5 mg PO BID [facility] Last Admin: 06/04/16 21:43 Dose: 5 mg Aspirin (Ecotrin -) 81 mg PO DAILY [facility] Last Admin: 06/04/16 10:34 Dose: 81 mg Atorvastatin Calcium (Lipitor -) 10 mg PO HS [facility] Last Admin: 06/04/16 21:43 Dose: 10 mg Fenofibric Acid (Trilipix -) 45 mg PO DAILY [facility] Last Admin: 06/04/16 10:34 Dose: 45 mg Furosemide (Lasix -) 80 mg PO BIDLASIX [facility] Last Admin: 06/04/16 14:49 Dose: Not Given Metoprolol Succinate (Toprol Xl -) 200 mg PO BID [facility] Last Admin: 06/04/16 21:44 Dose: Not Given Morphine Sulfate (Msir -) 30 mg PO Q6H PRN PRN Reason: PAIN Last Admin: 06/04/16 17:41 Dose: 30 mg Morphine Sulfate (Ms Contin -) 30 mg PO BID [facility] Last Admin: 06/04/16 21:43 Dose: 30 mg Sertraline HCl (Zoloft -) 50 mg PO DAILY [facility] Last Admin: 06/04/16 10:34 Dose: 50 mg Sevelamer Carbonate (Renvela Powder Packet -) 2.4 gm PO TIDCM [facility] Last Admin: 06/04/16 16:50 Dose: 2.4 gm Sitagliptin Phosphate (Januvia -) 25 mg PO ACBK [facility] Last Admin: 06/04/16 06:31 Dose: Not Given Sodium Thiosulfate (Sodium Thiosulfate) 25 gm IV MoWeFr@1300 [facility] Last Admin: 06/02/16 17:22 Dose: 25 gm - Objective Vital Signs: Vital Signs Temperature 97.4 F L 06/04/16 18:00 Pulse Rate 98 H 06/04/16 18:00 Respiratory Rate 19 06/04/16 20:18 Blood Pressure 96/51 06/04/16 18:00 O2 Sat by Pulse Oximetry (%) 98 06/04/16 22:00 Neck: Yes: Supple Cardiovascular: Yes: Pulse Irregular Respiratory: Yes: WNL, Regular, CTA Bilaterally Gastrointestinal: Yes: WNL, Normal Bowel Sounds, Soft Extremities: Yes: Other (RT 4th finger w/ gangrenous tip LT foot in dressing) Labs: CBC, BMP 05/31/16 09:20 05/31/16 09:20 INR, PTT INR 1.59 (0.82-1.09) H 05/11/16 13:20 Problem List - Problems (1) PAD (peripheral artery disease) Assessment/Plan: Long d/w pt about amputation of his lt toe Will need to dc eliquis prior to surgery Will change to lovenox SQ Await surgery recommendations Rt finger now will probably also need amputation Code(s): I73.9 - PERIPHERAL VASCULAR DISEASE, UNSPECIFIED (2) Afib Assessment/Plan: Heart rate controlled Cont metoprolol Change eliquis to lovenox in order to prep for amputation of toe Code(s): I48.91 - UNSPECIFIED ATRIAL FIBRILLATION (3) End stage renal disease Assessment/Plan: Dialysis as per renal Monitor electrolytes Cont renvela Code(s): N18.6 - END STAGE RENAL DISEASE (4) Cellulitis of foot Assessment/Plan: Pt had angioplasty of popitial tibial Chronic lt foot ulcer S/P B/L stenting of common iliacs Pt is now off antibxs Code(s): L03.119 - CELLULITIS OF UNSPECIFIED PART OF LIMB (5) Dyspnea Code(s): R06.00 - DYSPNEA, UNSPECIFIED (6) Congestive heart failure Code(s): I50.9 - HEART FAILURE, UNSPECIFIED Qualifiers: Congestive heart failure type: systolic Congestive heart failure chronicity: acute on chronic Qualified Code(s): I50.23 - Acute on chronic systolic (congestive) heart failure (7) HTN (hypertension) Code(s): I10 - ESSENTIAL (PRIMARY) HYPERTENSION (8) Diabetes Code(s): E11.9 - TYPE 2 DIABETES MELLITUS WITHOUT COMPLICATIONS (9) Anemia Code(s): D64.9 - ANEMIA, UNSPECIFIED Qualifiers: Anemia type: unspecified type Qualified Code(s): D64.9 - Anemia, unspecified (10) HLD (hyperlipidemia) Code(s): E78.5 - HYPERLIPIDEMIA, UNSPECIFIED
[2016-06-05] MEDS ORDERED: PT OWN MED DRAWER 7, Y5N ONE ×4 (05:32→21:26)
[2016-06-05] MEDS: sitaGLIPtin PHOSPHATE 25 MG TABLET (FP) PO SCH (06:19)
[2016-06-05] MEDS: FUROSEMIDE 40 MG TABLET (FP) PO SCH ×2 (06:19→15:05)
[2016-06-05] MEDS: SEVELAMER CARBONATE 2.4 GM POWDER PACKET PO SCH ×3 (08:28→17:27)
--- NOTE | 2016-06-05 09:11 | PN ---
Progress Note (short form) - Note Progress Note: Left toes unchanged. Appears to be demarcated at base of toes. Plantar skin dry but viable. Patient wants to proceed with TMA before going home. I explained that flap viability is not guaranteed and ampuation may not heal. I will schedule for Sunday. Eliquis to be held for 48 hours.
[2016-06-05] MEDS: morphine SO4 SUSTAINED ACTING 15 MG TABLET.SA PO SCH ×2 (09:16→22:26)
[2016-06-05] MEDS: FENOFIBRIC ACID 45 MG CAP PO SCH (09:16)
[2016-06-05] MEDS: SERTRALINE HCL 50 MG TABLET (FP) PO SCH (09:16)
[2016-06-05] MEDS: ASPIRIN COATED 81 MG TABLET.EC PO SCH (09:16)
[2016-06-05] MEDS: METOPROLOL SUCCINATE 100 MG TAB.SR.24H (FP) PO SCH ×2 (09:18→22:29)
[2016-06-05 11:43] LABS: MCHC 31.2 g/dl (32.0-35.9); MEAN CELL VOLUME 89.9 fl (80-96); MEAN PLT VOLUME 8.5 fl (7.5-11.1); PLATELET COUNT 244 K/MM3 (134-434); RDW 16.9 % (11.9-15.9); WHITE BLOOD COUNT 11.8 K/mm3 (4.0-10.0)
[2016-06-05] MEDS: SODIUM THIOSULFATE 12.5 GM/50 ML VIAL IV SCH (11:57)
[2016-06-05] MEDS ORDERED: SODIUM THIOSULFATE 12.5 GM/50 ML VIAL IV SCH (12:00)
[2016-06-05 12:14] LABS: ALBUMIN 2.6 g/dl (3.4-5.0); BILIRUBIN,TOTAL 0.6 mg/dL (0.2-1.0); CALCIUM 8.5 mg/dL (8.5-10.1); COCKROFT - GAULT 13.66; CREATININE 7.4 mg/dL (0.7-1.3); PHOSPHOROUS 7.3 mg/dL (2.5-4.9); TOT PROT 6.6 g/dl (6.4-8.2)
[2016-06-05] MEDS ORDERED: EPOETIN ALFA 10,000 UNIT/1 ML VIAL IVPUSH ONE (13:00)
[2016-06-05] MEDS: morphine SULFATE IMMEDIATE RELEASE 30 MG TAB PO PRN (14:54)
[2016-06-05] MEDS: ATORVASTATIN CA 10 MG TABLET (FP) PO SCH (22:25)
--- NOTE | 2016-06-05 22:55 | PN ---
Progress Note, Physician History of Present Illness: Pt having episodes of hypotension - Current Medication List Current Medications: Active Medications Acetaminophen (Tylenol -) 650 mg PO Q6H PRN PRN Reason: PAIN Last Admin: 06/03/16 13:28 Dose: 650 mg Acetaminophen (Tylenol -) 650 mg PO Q5H PRN PRN Reason: FEVER OR PAIN Aspirin (Ecotrin -) 81 mg PO DAILY [facility] Last Admin: 06/05/16 09:16 Dose: 81 mg Atorvastatin Calcium (Lipitor -) 10 mg PO HS [facility] Last Admin: 06/05/16 22:25 Dose: 10 mg Fenofibric Acid (Trilipix -) 45 mg PO DAILY [facility] Last Admin: 06/05/16 09:16 Dose: 45 mg Furosemide (Lasix -) 80 mg PO BIDLASIX [facility] Last Admin: 06/05/16 15:05 Dose: Not Given Metoprolol Succinate (Toprol Xl -) 200 mg PO BID [facility] Last Admin: 06/05/16 22:29 Dose: Not Given Morphine Sulfate (Msir -) 30 mg PO Q6H PRN PRN Reason: PAIN Last Admin: 06/05/16 14:54 Dose: 30 mg Morphine Sulfate (Ms Contin -) 30 mg PO BID [facility] Last Admin: 06/05/16 22:26 Dose: 30 mg Sertraline HCl (Zoloft -) 50 mg PO DAILY [facility] Last Admin: 06/05/16 09:16 Dose: 50 mg Sevelamer Carbonate (Renvela Powder Packet -) 2.4 gm PO TIDCM [facility] Last Admin: 06/05/16 17:27 Dose: Not Given Sitagliptin Phosphate (Januvia -) 25 mg PO ACBK [facility] Last Admin: 06/05/16 06:19 Dose: Not Given Sodium Thiosulfate (Sodium Thiosulfate) 25 gm IV MoWeFr@1200 [facility] Last Admin: 06/05/16 11:57 Dose: 25 gm - Objective Vital Signs: Vital Signs Temperature 98.4 F 06/05/16 10:40 Pulse Rate 72 06/05/16 14:30 Respiratory Rate 18 06/05/16 14:30 Blood Pressure 104/60 06/05/16 14:30 O2 Sat by Pulse Oximetry (%) 97 06/05/16 10:00 Constitutional: Yes: Well Nourished Neck: Yes: Supple Cardiovascular: Yes: WNL, Pulse Irregular Respiratory: Yes: WNL, Regular, CTA Bilaterally Gastrointestinal: Yes: WNL, Normal Bowel Sounds, Soft, Abdomen, Obese Extremities: Yes: Other (Lt foot in dressing Rt 4th digit w/ ecchymosis) Labs: CBC, BMP 06/05/16 10:45 06/05/16 10:45 INR, PTT INR 1.59 (0.82-1.09) H 05/11/16 13:20 Problem List - Problems (1) PAD (peripheral artery disease) Assessment/Plan: Long d/w pt about amputation of his lt toe Amputation scheduled for Wed. Eliquis has been on hold WBC slightly increased today Will repeat in am Rt finger now will probably also need amputation Code(s): I73.9 - PERIPHERAL VASCULAR DISEASE, UNSPECIFIED (2) Afib Assessment/Plan: Heart rate controlled Cont metoprolol Eliquis was dc'ed and lovenox added in order to prep for amputation Code(s): I48.91 - UNSPECIFIED ATRIAL FIBRILLATION (3) End stage renal disease Assessment/Plan: Dialysis as per renal Monitor electrolytes Cont renvela Code(s): N18.6 - END STAGE RENAL DISEASE (4) Cellulitis of foot Code(s): L03.119 - CELLULITIS OF UNSPECIFIED PART OF LIMB (5) Dyspnea Code(s): R06.00 - DYSPNEA, UNSPECIFIED (6) Congestive heart failure Code(s): I50.9 - HEART FAILURE, UNSPECIFIED Qualifiers: Congestive heart failure type: systolic Congestive heart failure chronicity: acute on chronic Qualified Code(s): I50.23 - Acute on chronic systolic (congestive) heart failure (7) HTN (hypertension) Code(s): I10 - ESSENTIAL (PRIMARY) HYPERTENSION (8) Diabetes Code(s): E11.9 - TYPE 2 DIABETES MELLITUS WITHOUT COMPLICATIONS (9) Anemia Code(s): D64.9 - ANEMIA, UNSPECIFIED Qualifiers: Anemia type: unspecified type Qualified Code(s): D64.9 - Anemia, unspecified (10) HLD (hyperlipidemia) Code(s): E78.5 - HYPERLIPIDEMIA, UNSPECIFIED
[2016-06-06] MEDS ORDERED: PT OWN MED DRAWER 7, Y5N ONE (05:57)
[2016-06-06 06:06] LABS: SERUM IRON 33 ug/dL (38-169); TOTAL IRON BINDING CAPACITY 263 ug/dL (250-450); UIBC 230 ug/dL (111-343)
[2016-06-06] MEDS: FUROSEMIDE 40 MG TABLET (FP) PO SCH ×2 (06:41→14:50)
[2016-06-06] MEDS: sitaGLIPtin PHOSPHATE 25 MG TABLET (FP) PO SCH (06:42)
--- NOTE | 2016-06-06 07:00 | HOSP ---
Subjective - Review of Symptoms Events since last encounter: Called at 650AM after patient was found on floor in room. As per patient, he was using his walker to get from his bed to the bathroom when he slipped and had a mechanical fall. He landed on his butt after grabbing onto the walker during the fall. He vehemently denies any preceding symptoms such as chest pain , headache, syncope, palpitation. He denies losing consciousness during the event., He denies loss of consciousness. Nurse entered the room immediately after the event and noticed the patient on the floor. HEENT: Atraumatic, no bruising, hematomas or abrasions. EOMI, PERRLA. CVS: S1S2, RRR PULM: CTA Bilaterally NEURO: AAOx3, at mental status baseline MSK: ROM intact bilateral upper & lower extremities. no tenderness to palpation or during ambulation A/P: Post-fall protocol #2 initiated. Left & right hip/pelvis XRay ordered to r/ o fracture. Will defer head CT given patient's vehement denial of head trauma. No signs of cardiac or neurological etiology of fall. BGM & O2 Sat ordered. Will f/u with results of imaging. Physical Examination Vital Signs: Vital Signs Temperature 97.6 F 06/05/16 22:00 Pulse Rate 100 H 06/06/16 02:00 Respiratory Rate 20 06/05/16 22:00 Blood Pressure 109/65 06/06/16 02:00 O2 Sat by Pulse Oximetry (%) 98 06/05/16 22:00 Labs: CBC, BMP 06/05/16 10:45 06/05/16 10:45 Visit type - Emergency Visit Emergency Visit: Yes ED Registration Date: 05/11/16 Care time: The patient presented to the Emergency Department on the above date and was hospitalized for further evaluation of their emergent condition. - New Patient This patient is new to me today: Yes Date on this admission: 06/06/16 - Critical Care Critical Care patient: No
[2016-06-06] MEDS: SEVELAMER CARBONATE 2.4 GM POWDER PACKET PO SCH ×3 (08:33→17:46)
[2016-06-06 08:43] LABS: BASOPHIL 1.1 % (0-2.0); EOSINOPHIL 1.2 % (0-4.5); MCH 28.4 pg (25.7-33.7); MCHC 31.5 g/dl (32.0-35.9); MEAN CELL VOLUME 90.4 fl (80-96); MEAN PLT VOLUME 8.5 fl (7.5-11.1); NEUTROPHILS 77.7 % (42.8-82.8); PLATELET COUNT 251 K/MM3 (134-434); RDW 17.3 % (11.9-15.9); WHITE BLOOD COUNT 10.6 K/mm3 (4.0-10.0)
[2016-06-06 08:54] LABS: ALBUMIN 2.7 g/dl (3.4-5.0); BILIRUBIN,TOTAL 0.6 mg/dL (0.2-1.0); CALCIUM 8.5 mg/dL (8.5-10.1); COCKROFT - GAULT 20.63; CREATININE 4.9 mg/dL (0.7-1.3); TOT PROT 6.9 g/dl (6.4-8.2)
[2016-06-06] MEDS: morphine SO4 SUSTAINED ACTING 15 MG TABLET.SA PO SCH ×2 (09:56→23:09)
[2016-06-06] MEDS: FENOFIBRIC ACID 45 MG CAP PO SCH (09:56)
[2016-06-06] MEDS: ASPIRIN COATED 81 MG TABLET.EC PO SCH (09:56)
[2016-06-06] MEDS: SERTRALINE HCL 50 MG TABLET (FP) PO SCH (09:56)
[2016-06-06] MEDS: METOPROLOL SUCCINATE 100 MG TAB.SR.24H (FP) PO SCH ×2 (09:56→23:10)
--- NOTE | 2016-06-06 14:39 | PN ---
Progress Note (short form) - Note Progress Note: Renal Follow up for ESRD Pt seen and examined at the bedside s/p fall this morning, fell on his knee when trying to get out of bed pt is very anxious about the surgery tomorrow reports feeling sob, no cough no chest pain, fever, chills Vital Signs Temperature 97.7 F 06/06/16 06:40 Pulse Rate 97 H 06/06/16 11:00 Respiratory Rate 20 06/06/16 11:00 Blood Pressure 108/57 06/06/16 11:00 O2 Sat by Pulse Oximetry (%) 100 06/06/16 10:00 Intake & Output 06/03/16 06/04/16 06/05/16 06/06/16 23:59 23:59 23:59 23:59 Intake Total 700 650 200 850 Balance 700 650 200 850 Weight 198 lb 1.6 oz 202 lb 1.6 oz 205 lb 12.8 oz Gen: awake and alert CVS: RRR, No M/R Lungs: CTA, Abd: soft NT/ND Ext: brusing on right inner thigh, LE is warm. Gangrene of finger CBC, BMP 06/06/16 07:50 06/06/16 07:50 Laboratory Tests 06/06/16 07:50 Calcium 8.5 Albumin 2.7 L Current Medications Acetaminophen (Tylenol -) 650 mg PO Q6H PRN PRN Reason: PAIN Last Admin: 06/03/16 13:28 Dose: 650 mg Acetaminophen (Tylenol -) 650 mg PO Q5H PRN PRN Reason: FEVER OR PAIN Alprazolam (Xanax -) 0.5 mg PO Q8H PRN PRN Reason: ANXIETY Aspirin (Ecotrin -) 81 mg PO DAILY [facility] Last Admin: 06/06/16 09:56 Dose: Not Given Atorvastatin Calcium (Lipitor -) 10 mg PO HS [facility] Last Admin: 06/05/16 22:25 Dose: 10 mg Fenofibric Acid (Trilipix -) 45 mg PO DAILY [facility] Last Admin: 06/06/16 09:56 Dose: Not Given Furosemide (Lasix -) 80 mg PO DAILY [facility] Metoprolol Succinate (Toprol Xl -) 200 mg PO BID [facility] Last Admin: 06/06/16 09:56 Dose: Not Given Morphine Sulfate (Msir -) 30 mg PO Q6H PRN PRN Reason: PAIN Last Admin: 06/05/16 14:54 Dose: 30 mg Morphine Sulfate (Ms Contin -) 30 mg PO BID [facility] Last Admin: 06/06/16 09:56 Dose: Not Given Sertraline HCl (Zoloft -) 50 mg PO DAILY [facility] Last Admin: 06/06/16 09:56 Dose: Not Given Sevelamer Carbonate (Renvela Powder Packet -) 2.4 gm PO TIDCM [facility] Last Admin: 06/06/16 12:26 Dose: Not Given Sitagliptin Phosphate (Januvia -) 25 mg PO ACBK [facility] Last Admin: 06/06/16 06:42 Dose: Not Given Sodium Thiosulfate (Sodium Thiosulfate) 25 gm IV MoWeFr@1200 [facility] Last Admin: 06/05/16 11:57 Dose: 25 gm A/P 60 year old gentleman with PMhx of ESRD (recently started on dialysis), CAD s/p CABG, DM Type 2, Depression, CHF who with LE weakness s/p recent fall and wound on right foot. #ESRD on HD with fluid overload no indication for dialysis yesterday s/p Hd yesterday next dialysis planned for tomorrow morning prior to Sx #Suspected Caliphyalxis Continue sodium thiosulfate IVPB with dialysis 3x weekly with HD keep Ca x Phos product less then 55 continue Renvela powder (discussed importance of compliance with patient) #PVD/Cyanosis of finer for TMA tomorrow #Anxiety Xanex PRN Won Weiss DO
[2016-06-06] MEDS ORDERED: ALPRAZolam 0.25 MG TABLET PO PRN (14:42)
--- NOTE | 2016-06-06 15:38 | PN ---
Progress Note (short form) - Note Progress Note: Chief Complaint: foot wound, afib History of Present Illness: sob improved, no orthopnea no cp, palpit, dizziness, loc ex cigs Current Medications Generic Name Dose Route Start Last Admin Trade Name Freq PRN Reason Stop Dose Admin Acetaminophen 650 mg 06/01/16 19:20 06/03/16 13:28 Tylenol - PO 650 mg Q6H PRN Administration PAIN Acetaminophen 650 mg 06/01/16 19:20 Tylenol - PO Q5H PRN FEVER OR PAIN Alprazolam 0.5 mg 06/06/16 14:42 Xanax - PO Q8H PRN ANXIETY Aspirin 81 mg 06/03/16 11:00 06/06/16 09:56 Ecotrin - PO Not Given DAILY [facility] Atorvastatin Calcium 10 mg 06/01/16 22:00 06/05/16 22:25 Lipitor - PO 10 mg HS MARY Administration Epoetin Campos 10,000 unit 06/07/16 06:00 Procrit - IVPUSH 06/07/16 06:01 ONCE ONE Fenofibric Acid 45 mg 06/02/16 10:00 06/06/16 09:56 Trilipix - PO Not Given DAILY [facility] Furosemide 80 mg 06/08/16 10:00 Lasix - PO DAILY [facility] Metoprolol Succinate 200 mg 06/01/16 22:00 06/06/16 09:56 Toprol Xl - PO Not Given BID [facility] Morphine Sulfate 30 mg 06/02/16 17:21 06/05/16 14:54 Msir - PO 30 mg Q6H PRN Administration PAIN Morphine Sulfate 30 mg 06/02/16 22:00 06/06/16 09:56 Ms Contin - PO Not Given BID [facility] Sertraline HCl 50 mg 06/02/16 10:00 06/06/16 09:56 Zoloft - PO Not Given DAILY [facility] Sevelamer Carbonate 2.4 gm 06/02/16 08:00 06/06/16 12:26 Renvela Powder Packet - PO Not Given TIDCM [facility] Sitagliptin Phosphate 25 mg 06/02/16 07:00 06/06/16 06:42 Januvia - PO Not Given ACBK [facility] Sodium Thiosulfate 25 gm 06/05/16 12:00 06/05/16 11:57 Sodium Thiosulfate IV 25 gm MoWeFr@1200 MARY Administration Vital Signs Period Temp Pulse Resp BP Sys/Ledbetter Pulse Ox Last 24 Hr 97.6 F-97.7 F 78-119 18-20 108-127/48-72 98-100 Constitutional: Yes: No Distress, Calm Eyes: No: Sclera Icterus HENT: No: Nasal Congestion Cardiovascular: Yes: Pulse Irregular, S1, S2, Other (PMI non diplaced). No: JVD , Gallop, Murmur Respiratory: Yes: cta bl nl eff. No: Accessory Muscle Use, Rales, Wheezes Gastrointestinal: Yes: Normal Bowel Sounds, Soft. No: Tenderness Musculoskeletal: Yes: Other (No kyphosis) Extremities: No: Cold Edema: Yes (trace pretib) Integumentary: No: Jaundice diaphoresis Neurological: Yes: Alert, Oriented (x3) Psychiatric: No: Agitated Labs: CBC, BMP 06/06/16 07:50 06/06/16 07:50 echo 09/2015: mod lve, mild-mod dec lvef, global HK, nl rv, mod-sev mr, sev tr, marixa, nl rvsp echo 03/2016: mild lve, mod dec lvef, ant HK, nl rv size, marixa, mild mr, mod tr, rvsp 40-50 a/p: 60 m hx htn, hld, dm, cabg (04/2006), ESRD, afib/flutter, syst chf, esrd on HD, here with infected foot wound chronic syst chf: -significant sob with little activity and orthopnea earlier this admit -attempting incr frequency of HD/UF here, per d/w dr mcghee -cont po lasix 80 bid and HD for vol management (started 05/12) -recent echo 03/2016 here similar to 09/2015, shows mod reduced lvef--? etiology ( ? if EF already down at time of dx of CAD and CABG) -need accurate assessment of AF rate control (r/o tachy-CMP) and burden ( paroxysmal) as outpt -has been getting near-daily HD/UF -05/20: overall wt trend here 213-->202 -however remains with severe orthopnea -doubt copd sx (pt given trial of nebs and says was no better) -CXR without evidence of pulm congestion, however suspect he is still hiding volume and filling pressures are up -d/w'd renal: plan to continue frequent UF until objective evidence of vol depletion -05/21: s/p UF yesterday; wt down 202 to 201; -05/22: no UF yesterday; wt up 201 to 204 this am--now 199 s/p UF today -05/23-06/06: Orthopnea improved, minimal sob, wt stable. con't po lasix and volume management per renal/HD. -needs outpt PFTs/pulm eval (continuing high dose BB for now, no wheezing) -holding diovan 80 qd, hydralazine 25 bid, and isordil 10 qd given low bp possibly from sepsis, and low bp's at HD which may limit attempts at aggressive fluid removal here -reassess later once volume status better, if bp stable afib/flutter: -initially not well controlled--HRs to 140s at times. (cannot use dilt with chronic syst chf, low dose digoxin (HD pt) hi risk toxicity. Amio or consider AVN ablation/PPM if cannot adequately control HRs) -frequent self-d/c of quality assurance monitor chassis limits assessment -? if tachy contributing to LV dysfunction and/or hi intracardiac filling pressures -05/20 incr'd toprol 200 bid (prefer not to hold it on HD days, if bp can tolerate) -05/22-06/06: Overall rate controlled, cont same -if remains with frequent tachy, can try change metoprolol to propranolol -avoiding dig given HD pt with risks of fluctuating levels -cont eliquis 2.5 bid (presyncopal consistently following eliquis 5mg doses at home--???)--hope to incr later once chf status and bp drops from HD are stabilized ESRD -cont hd per renal -fluid removal as disc'd above htn: -bp's on low side here, possibly due to infection/cellulitis so holding diovan, nitrate, hydralazine for now, resume when bp stable -LH/presyncope episodes at home, ? (highly unusual) med effect (eliquis 5mg)-- suspect more likely related to hi chf med burden with intravasc fluid shifts from HD hld: -cont home statin cad s/p cabg: -ce's neg x2, EKG without ischemic changes here, no suspected angina sx's -recent echo w/o sig change from prior -cont statin, bb, ac le cellulitis, possible gangrene, PAD: -s/p b/l common iliac stenting 05/26 -plans for left TMA tomorrow, no cardiac contraindications. -also with gangrene of finger thought to be 2/2 microvascular occlusion, vascular following, will likely need amputation -resume eliquis when possible
--- NOTE | 2016-06-06 22:49 | PN ---
Progress Note, Physician - Current Medication List Current Medications: Active Medications Acetaminophen (Tylenol -) 650 mg PO Q6H PRN PRN Reason: PAIN Last Admin: 06/03/16 13:28 Dose: 650 mg Acetaminophen (Tylenol -) 650 mg PO Q5H PRN PRN Reason: FEVER OR PAIN Alprazolam (Xanax -) 0.5 mg PO Q8H PRN PRN Reason: ANXIETY Aspirin (Ecotrin -) 81 mg PO DAILY [facility] Last Admin: 06/06/16 09:56 Dose: Not Given Atorvastatin Calcium (Lipitor -) 10 mg PO HS [facility] Last Admin: 06/05/16 22:25 Dose: 10 mg Epoetin Campos (Procrit -) 10,000 unit IVPUSH ONCE ONE Stop: 06/07/16 06:01 Fenofibric Acid (Trilipix -) 45 mg PO DAILY [facility] Last Admin: 06/06/16 09:56 Dose: Not Given Furosemide (Lasix -) 80 mg PO DAILY [facility] Cefazolin Sodium 0.5 gm/ (Dextrose) 50 mls @ 100 mls/hr IVPB ONCE ONE Stop: 06/07/16 21:29 Metoprolol Succinate (Toprol Xl -) 200 mg PO BID [facility] Last Admin: 06/06/16 09:56 Dose: Not Given Morphine Sulfate (Msir -) 30 mg PO Q6H PRN PRN Reason: PAIN Last Admin: 06/05/16 14:54 Dose: 30 mg Morphine Sulfate (Ms Contin -) 30 mg PO BID [facility] Last Admin: 06/06/16 09:56 Dose: Not Given Sertraline HCl (Zoloft -) 50 mg PO DAILY [facility] Last Admin: 06/06/16 09:56 Dose: Not Given Sevelamer Carbonate (Renvela Powder Packet -) 2.4 gm PO TIDCM [facility] Last Admin: 06/06/16 17:46 Dose: Not Given Sitagliptin Phosphate (Januvia -) 25 mg PO ACBK [facility] Last Admin: 06/06/16 06:42 Dose: Not Given Sodium Thiosulfate (Sodium Thiosulfate) 25 gm IV MoWeFr@1200 [facility] Last Admin: 06/05/16 11:57 Dose: 25 gm - Objective Vital Signs: Vital Signs Temperature 97.6 F 06/06/16 22:08 Pulse Rate 110 H 06/06/16 22:08 Respiratory Rate 20 04/11/17 22:08 Blood Pressure 119/61 06/06/16 22:08 O2 Sat by Pulse Oximetry (%) 100 06/06/16 10:00 Labs: CBC, BMP 06/06/16 07:50 06/06/16 07:50 INR, PTT INR 1.59 (0.82-1.09) H 05/11/16 13:20 Problem List - Problems (1) PAD (peripheral artery disease) Code(s): I73.9 - PERIPHERAL VASCULAR DISEASE, UNSPECIFIED (2) Afib Code(s): I48.91 - UNSPECIFIED ATRIAL FIBRILLATION (3) End stage renal disease Code(s): N18.6 - END STAGE RENAL DISEASE (4) Cellulitis of foot Code(s): L03.119 - CELLULITIS OF UNSPECIFIED PART OF LIMB (5) Dyspnea Code(s): R06.00 - DYSPNEA, UNSPECIFIED (6) Congestive heart failure Code(s): I50.9 - HEART FAILURE, UNSPECIFIED Qualifiers: Congestive heart failure type: systolic Congestive heart failure chronicity: acute on chronic Qualified Code(s): I50.23 - Acute on chronic systolic (congestive) heart failure (7) HTN (hypertension) Code(s): I10 - ESSENTIAL (PRIMARY) HYPERTENSION (8) Diabetes Code(s): E11.9 - TYPE 2 DIABETES MELLITUS WITHOUT COMPLICATIONS (9) Anemia Code(s): D64.9 - ANEMIA, UNSPECIFIED Qualifiers: Anemia type: unspecified type Qualified Code(s): D64.9 - Anemia, unspecified (10) HLD (hyperlipidemia) Code(s): E78.5 - HYPERLIPIDEMIA, UNSPECIFIED
[2016-06-06] MEDS: morphine SULFATE IMMEDIATE RELEASE 30 MG TAB PO PRN (23:08)
[2016-06-06] MEDS: ATORVASTATIN CA 10 MG TABLET (FP) PO SCH (23:09)
[2016-06-07] MEDS: SEVELAMER CARBONATE 2.4 GM POWDER PACKET PO SCH ×3 (08:37→17:00)
[2016-06-07] MEDS ORDERED: EPOETIN ALFA 10,000 UNIT/1 ML VIAL IVPUSH ONE (10:00)
[2016-06-07] MEDS: morphine SO4 SUSTAINED ACTING 15 MG TABLET.SA PO SCH ×2 (10:01→21:09)
[2016-06-07] MEDS: METOPROLOL SUCCINATE 100 MG TAB.SR.24H (FP) PO SCH ×2 (10:02→21:00)
[2016-06-07] MEDS: SERTRALINE HCL 50 MG TABLET (FP) PO SCH (10:02)
[2016-06-07] MEDS: FENOFIBRIC ACID 45 MG CAP PO SCH (10:02)
[2016-06-07] MEDS ORDERED: PT OWN MED DRAWER 7, Y5N ONE (10:03)
[2016-06-07 11:08] LABS: MCH 27.6 pg (25.7-33.7); MCHC 30.2 g/dl (32.0-35.9); MEAN CELL VOLUME 91.2 fl (80-96); MEAN PLT VOLUME 8.8 fl (7.5-11.1); PLATELET COUNT 281 K/MM3 (134-434); RDW 17.4 % (11.9-15.9)
[2016-06-07 11:48] LABS: ALBUMIN 2.5 g/dl (3.4-5.0); BILIRUBIN,TOTAL 0.6 mg/dL (0.2-1.0); CALCIUM 8.4 mg/dL (8.5-10.1); COCKROFT - GAULT 16.99; CREATININE 6.1 mg/dL (0.7-1.3); PHOSPHOROUS 6.4 mg/dL (2.5-4.9)
[2016-06-07 11:49] LABS: TOT PROT 6.6 g/dl (6.4-8.2)
[2016-06-07] MEDS: SODIUM THIOSULFATE 12.5 GM/50 ML VIAL IV SCH (12:45)
--- NOTE | 2016-06-07 13:16 | PN ---
Progress Note (short form) - Note Progress Note: Renal Follow up for ESRD Pt seen and examined during dialysis BP stable, access with good function goal UF is 2L no acute complaints Vital Signs Temperature 97.4 F L 06/07/16 10:00 Pulse Rate 69 06/07/16 13:00 Respiratory Rate 18 06/07/16 13:00 Blood Pressure 133/66 06/07/16 13:00 O2 Sat by Pulse Oximetry (%) 100 06/07/16 10:00 Intake & Output 06/04/16 06/05/16 06/06/16 06/07/16 23:59 23:59 23:59 23:59 Intake Total 915 042 7882 200 Balance 539 209 7105 200 Weight 202 lb 1.6 oz 205 lb 12.8 oz 211 lb Gen: awake and alert CVS: RRR, No M/R Lungs: CTA, Abd: soft NT/ND Ext: brusing on right inner thigh, LE is warm. Gangrene of finger CBC, BMP 06/07/16 10:15 06/07/16 10:15 Current Medications Acetaminophen (Tylenol -) 650 mg PO Q6H PRN PRN Reason: PAIN Last Admin: 06/03/16 13:28 Dose: 650 mg Acetaminophen (Tylenol -) 650 mg PO Q5H PRN PRN Reason: FEVER OR PAIN Alprazolam (Xanax -) 0.5 mg PO Q8H PRN PRN Reason: ANXIETY Aspirin (Ecotrin -) 81 mg PO DAILY [facility] Last Admin: 06/06/16 09:56 Dose: Not Given Atorvastatin Calcium (Lipitor -) 10 mg PO HS [facility] Last Admin: 06/06/16 23:09 Dose: 10 mg Fenofibric Acid (Trilipix -) 45 mg PO DAILY [facility] Last Admin: 06/07/16 10:02 Dose: Not Given Furosemide (Lasix -) 80 mg PO DAILY [facility] Cefazolin Sodium 0.5 gm/ (Dextrose) 50 mls @ 100 mls/hr IVPB ONCE ONE Stop: 06/07/16 21:29 Metoprolol Succinate (Toprol Xl -) 200 mg PO BID [facility] Last Admin: 06/07/16 10:02 Dose: Not Given Morphine Sulfate (Msir -) 30 mg PO Q6H PRN PRN Reason: PAIN Last Admin: 06/06/16 23:08 Dose: 30 mg Morphine Sulfate (Ms Contin -) 30 mg PO BID [facility] Last Admin: 06/07/16 10:01 Dose: Not Given Sertraline HCl (Zoloft -) 50 mg PO DAILY [facility] Last Admin: 06/07/16 10:02 Dose: Not Given Sevelamer Carbonate (Renvela Powder Packet -) 2.4 gm PO TIDCM [facility] Last Admin: 06/07/16 12:36 Dose: Not Given Sitagliptin Phosphate (Januvia -) 25 mg PO ACBK [facility] Last Admin: 06/06/16 06:42 Dose: Not Given Sodium Thiosulfate (Sodium Thiosulfate) 25 gm IV MoWeFr@1200 [facility] Last Admin: 06/07/16 12:45 Dose: 25 gm A/P 60 year old gentleman with PMhx of ESRD (recently started on dialysis), CAD s/p CABG, DM Type 2, Depression, CHF who with LE weakness s/p recent fall and wound on right foot. #ESRD on HD with fluid overload Tolerating dialysis well today next HD planned for Sunday #Suspected Caliphyalxis Continue sodium thiosulfate IVPB with dialysis 3x weekly with HD Continue Phos binder no vit D supplements #PVD/Cyanosis of finer for TMA today #Anxiety Xanex PRN #Anemia Epogen with Hd if Hgh remains less then 8 will need transfusion Won Weiss DO
[2016-06-07 14:53] LABS: COCKROFT - GAULT 47.12; CREATININE 2.2 mg/dL (0.7-1.3)
[2016-06-07] MEDS ORDERED: PROPOFOL 20 ML ONE (15:26)
[2016-06-07] MEDS ORDERED: MIDAZOLAM HCL 2 MG/2 ML SINGLE DOSE VIAL ONE (15:26)
[2016-06-07] MEDS ORDERED: SUCCINYLCHOLINE CHLORIDE 200 MG/10 ML VIAL ONE (15:27)
[2016-06-07] MEDS ORDERED: ESMOLOL HCL 10 ML ONE (15:56)
[2016-06-07] MEDS ORDERED: PHENYLEPHRINE HCL 10 MG/1 ML SINGLE DOSE VIAL ONE (15:58)
[2016-06-07] MEDS ORDERED: ONDANSETRON 4 MG/2 ML VIAL IVPUSH PRN ×2 (16:47→17:48)
--- NOTE | 2016-06-07 16:54 | OP ---
Operative Note - Note: Operative Date: 06/07/16 Pre-Operative Diagnosis: Gangrene left forefoot Operation: Amputation left forefoot - [place] level Findings: Gangrene of all toes. Skin and subcutaneous tissue appeared viable at level of amputation. Post-Operative Diagnosis: Same as Pre-op Surgeon: Fer Young Anesthesiologist/NITROGLYCERIN SEPARATOR OPERATOR: Belkys Friend Anesthesia: General Specimens Removed: Left forefoot Estimated Blood Loss (mls): 50 Operative Report Dictated: Yes
[2016-06-07] MEDS ORDERED: METOPROLOL TARTRATE 5 MG/5 ML VIAL ONE (17:00)
[2016-06-07] MEDS ORDERED: morphine SULFATE IMMEDIATE RELEASE 30 MG TAB PO PRN (17:48)
[2016-06-07] MEDS ORDERED: ACETAMINOPHEN 325 MG TABLET (FP) PO PRN (17:48)
--- NOTE | 2016-06-07 18:54 | OP ---
DATE OF OPERATION: 06/07/2016 SURGEON: Serg Malone MD PROCEDURE: Forefoot amputation, left; [place]opart level. PREOPERATIVE DIAGNOSIS: Gangrene of left forefoot. POSTOPERATIVE DIAGNOSIS: Gangrene of left forefoot. ANESTHESIA: General. ANESTHESIOLOGIST: Kate Daniel DO OPERATIVE FINDINGS: There was gangrene of all 5 toes of the left foot. The skin and subcutaneous tissues at the level of amputation appeared viable. OPERATIVE PROCEDURE: Following routine patient identification with side and site verification, general anesthesia was induced. The left foot and ankle were prepped with Betadine solution. Skin incision was made over the midfoot dorsally with a plantar flap extending to the base of the toes. Subcutaneous tissues were divided using cautery for hemostasis. The bones were transected through the distal tarsal level using an oscillating saw. The forefoot was then from the plantar flap with cautery and sent to Pathology. The tarsal bones were debrided back with the saw another several millimeters and the ends of the bones were smoothed with a rasp. The plantar flap was trimmed to remove tendons and then was irrigated with saline. The flaps were closed with interrupted mattress sutures of 3-0 nylon. Next the skin was excised to allow closure without overhanging flaps. The foot was then cleansed with saline and dried. A dressing consisting of Xeroform gauze, gauze fluffs, combined Kerlix and Coban was applied and the patient was taken to the recovery room in stable condition. SERG MALONE M.D. MARYURI/[id number]
[2016-06-07] MEDS: ALPRAZolam 0.25 MG TABLET PO PRN (21:00)
[2016-06-07] MEDS ORDERED: CEFAZOLIN 0.5 GM in DEXTROSE 5%-WATER - 50 ML IVPB ONE (21:00)
[2016-06-07] MEDS: ATORVASTATIN CA 10 MG TABLET (FP) PO SCH (21:01)
[2016-06-07] MEDS ORDERED: KETOROLAC TROMETHAMINE 30 MG/1 ML VIAL IVPUSH ONE (22:30)
--- NOTE | 2016-06-07 22:54 | PN ---
Progress Note, Physician - Current Medication List Current Medications: Active Medications Acetaminophen (Tylenol -) 650 mg PO Q6H PRN PRN Reason: PAIN Acetaminophen (Tylenol -) 650 mg PO Q5H PRN PRN Reason: FEVER OR PAIN Alprazolam (Xanax -) 0.5 mg PO Q8H PRN PRN Reason: ANXIETY Last Admin: 06/07/16 21:00 Dose: 0.5 mg Apixaban (Eliquis -) 5 mg PO BID@0800,2000 [facility] Aspirin (Ecotrin -) 81 mg PO DAILY [facility] Atorvastatin Calcium (Lipitor -) 10 mg PO HS [facility] Last Admin: 06/07/16 21:01 Dose: 10 mg Fenofibric Acid (Trilipix -) 45 mg PO DAILY [facility] Fentanyl (Sublimaze Injection -) 50 mcg IVPUSH [id number] PRN PRN Reason: PAIN Stop: 06/10/16 16:48 Last Admin: 06/07/16 18:20 Dose: 50 mcg Furosemide (Lasix -) 80 mg PO DAILY [facility] Metoprolol Succinate (Toprol Xl -) 200 mg PO BID [facility] Last Admin: 06/07/16 21:00 Dose: 200 mg Morphine Sulfate (Ms Contin -) 30 mg PO BID [facility] Last Admin: 06/07/16 21:09 Dose: 30 mg Morphine Sulfate (Msir -) 30 mg PO Q6H PRN PRN Reason: PAIN Sertraline HCl (Zoloft -) 50 mg PO DAILY [facility] Sevelamer Carbonate (Renvela Powder Packet -) 2.4 gm PO TIDCM [facility] Sitagliptin Phosphate (Januvia -) 25 mg PO ACBK [facility] Sodium Thiosulfate (Sodium Thiosulfate) 25 gm IV MoWeFr@1200 [facility] - Objective Vital Signs: Vital Signs Temperature 97.9 F 06/07/16 19:20 Pulse Rate 62 06/07/16 19:20 Respiratory Rate 16 06/07/16 19:20 Blood Pressure 117/61 06/07/16 19:20 O2 Sat by Pulse Oximetry (%) 96 06/07/16 19:20 Labs: CBC, BMP 06/07/16 10:15 06/07/16 13:30 INR, PTT INR 1.59 (0.82-1.09) H 05/11/16 13:20 Problem List - Problems (1) PAD (peripheral artery disease) Code(s): I73.9 - PERIPHERAL VASCULAR DISEASE, UNSPECIFIED (2) Afib Code(s): I48.91 - UNSPECIFIED ATRIAL FIBRILLATION (3) End stage renal disease Code(s): N18.6 - END STAGE RENAL DISEASE (4) Cellulitis of foot Code(s): L03.119 - CELLULITIS OF UNSPECIFIED PART OF LIMB (5) Dyspnea Code(s): R06.00 - DYSPNEA, UNSPECIFIED (6) Congestive heart failure Code(s): I50.9 - HEART FAILURE, UNSPECIFIED Qualifiers: Qualified Code(s): I50.23 - Acute on chronic systolic (congestive) heart failure (7) HTN (hypertension) Code(s): I10 - ESSENTIAL (PRIMARY) HYPERTENSION (8) Diabetes Code(s): E11.9 - TYPE 2 DIABETES MELLITUS WITHOUT COMPLICATIONS (9) Anemia Code(s): D64.9 - ANEMIA, UNSPECIFIED Qualifiers: Qualified Code(s): D64.9 - Anemia, unspecified (10) HLD (hyperlipidemia) Code(s): E78.5 - HYPERLIPIDEMIA, UNSPECIFIED
[2016-06-08] MEDS: morphine SULFATE IMMEDIATE RELEASE 30 MG TAB PO PRN ×2 (01:56→22:54)
[2016-06-08] MEDS: sitaGLIPtin PHOSPHATE 25 MG TABLET (FP) PO SCH ×2 (06:22→10:00)
[2016-06-08 09:04] LABS: BASOPHIL 1.3 % (0-2.0); EOSINOPHIL 2.9 % (0-4.5); MCH 28.5 pg (25.7-33.7); MCHC 31.5 g/dl (32.0-35.9); MEAN CELL VOLUME 90.4 fl (80-96); MEAN PLT VOLUME 8.3 fl (7.5-11.1); NEUTROPHILS 69.7 % (42.8-82.8); PLATELET COUNT 289 K/MM3 (134-434); RDW 17.1 % (11.9-15.9); WHITE BLOOD COUNT 11.6 K/mm3 (4.0-10.0)
[2016-06-08 09:19] LABS: CALCIUM 8.6 mg/dL (8.5-10.1); COCKROFT - GAULT 22.53; CREATININE 4.6 mg/dL (0.7-1.3); PHOSPHOROUS 4.3 mg/dL (2.5-4.9)
[2016-06-08] MEDS ORDERED: PT OWN MED DRAWER 7, Y5N ONE ×3 (09:22→17:48)
[2016-06-08] MEDS: morphine SO4 SUSTAINED ACTING 15 MG TABLET.SA PO SCH ×2 (09:26→21:14)
[2016-06-08] MEDS: FUROSEMIDE 40 MG TABLET (FP) PO SCH (09:27)
[2016-06-08] MEDS: SERTRALINE HCL 50 MG TABLET (FP) PO SCH (09:27)
[2016-06-08] MEDS: METOPROLOL SUCCINATE 100 MG TAB.SR.24H (FP) PO SCH ×2 (09:29→21:13)
[2016-06-08] MEDS: SEVELAMER CARBONATE 2.4 GM POWDER PACKET PO SCH ×3 (09:29→17:55)
[2016-06-08] MEDS: FENOFIBRIC ACID 45 MG CAP PO SCH (09:30)
[2016-06-08] MEDS: APIXABAN 5 MG TABLET PO SCH ×2 (09:34→21:13)
[2016-06-08] MEDS ORDERED: FUROSEMIDE 40 MG TABLET (FP) PO SCH (10:00)
[2016-06-08] MEDS: ASPIRIN COATED 81 MG TABLET.EC PO SCH (11:49)
--- NOTE | 2016-06-08 12:42 | PN ---
Progress Note (short form) - Note Progress Note: Renal Follow up for ESRD Pt seen and examined at the bedside s/p TMA yesterday, continues to have pain in the foot denies any sob or chest pain Vital Signs Temperature 97.6 F 06/08/16 10:00 Pulse Rate 98 H 06/08/16 10:00 Respiratory Rate 18 06/08/16 10:00 Blood Pressure 108/60 06/08/16 10:00 O2 Sat by Pulse Oximetry (%) 97 06/08/16 10:00 Intake & Output 06/05/16 06/06/16 06/07/16 06/08/16 23:59 23:59 23:59 23:59 Intake Total 200 1250 1250 200 Output Total 50 Balance 200 1250 1200 200 Weight 205 lb 12.8 oz 211 lb Gen: awake and alert CVS: RRR, No M/R Lungs: CTA, Abd: soft NT/ND Ext: left foot in dressing CBC, BMP 06/08/16 08:15 06/08/16 08:15 Current Medications Acetaminophen (Tylenol -) 650 mg PO Q6H PRN PRN Reason: PAIN Acetaminophen (Tylenol -) 650 mg PO Q5H PRN PRN Reason: FEVER OR PAIN Alprazolam (Xanax -) 0.5 mg PO Q8H PRN PRN Reason: ANXIETY Last Admin: 06/07/16 21:00 Dose: 0.5 mg Apixaban (Eliquis -) 5 mg PO BID@0800,2000 [facility] Last Admin: 06/08/16 09:34 Dose: 5 mg Aspirin (Ecotrin -) 81 mg PO DAILY [facility] Last Admin: 06/08/16 11:49 Dose: 81 mg Atorvastatin Calcium (Lipitor -) 10 mg PO HS [facility] Last Admin: 06/07/16 21:01 Dose: 10 mg Fenofibric Acid (Trilipix -) 45 mg PO DAILY [facility] Last Admin: 06/08/16 09:30 Dose: 45 mg Fentanyl (Sublimaze Injection -) 50 mcg IVPUSH [id number] PRN PRN Reason: PAIN Stop: 06/10/16 16:48 Last Admin: 06/07/16 18:20 Dose: 50 mcg Furosemide (Lasix -) 80 mg PO DAILY [facility] Last Admin: 06/08/16 09:27 Dose: 80 mg Metoprolol Succinate (Toprol Xl -) 200 mg PO BID [facility] Last Admin: 06/08/16 09:29 Dose: 200 mg Morphine Sulfate (Ms Contin -) 30 mg PO BID [facility] Last Admin: 06/08/16 09:26 Dose: 30 mg Morphine Sulfate (Msir -) 30 mg PO Q6H PRN PRN Reason: PAIN Last Admin: 06/08/16 01:56 Dose: 30 mg Sertraline HCl (Zoloft -) 50 mg PO DAILY [facility] Last Admin: 06/08/16 09:27 Dose: 50 mg Sevelamer Carbonate (Renvela Powder Packet -) 2.4 gm PO TIDCM [facility] Last Admin: 06/08/16 11:51 Dose: 2.4 gm Sitagliptin Phosphate (Januvia -) 25 mg PO ACBK [facility] Last Admin: 06/08/16 10:00 Dose: Not Given Sodium Thiosulfate (Sodium Thiosulfate) 25 gm IV MoWeFr@1200 MARY A/P 60 year old gentleman with PMhx of ESRD (recently started on dialysis), CAD s/p CABG, DM Type 2, Depression, CHF who with LE weakness s/p recent fall and wound on right foot. #ESRD on HD with fluid overload No acute indication for dialysis today nextz treatment tomorrow with UF as tolrated #Suspected Caliphyalxis Continue sodium thiosulfate IVPB with dialysis 3x weekly with HD continue phos binders avoid Vit D analogs and ca supplamention #PVD/Cyanosis of finer s/p TMA Pain control Vascular follow up #Anxiety Xanex PRN #Anemia Epogen with Hd if Hgh remains less then 8 will need transfusion Won Weiss DO
[2016-06-08] MEDS: ATORVASTATIN CA 10 MG TABLET (FP) PO SCH (21:14)
--- NOTE | 2016-06-08 22:40 | PN ---
Progress Note, Physician - Current Medication List Current Medications: Active Medications Acetaminophen (Tylenol -) 650 mg PO Q6H PRN PRN Reason: PAIN Acetaminophen (Tylenol -) 650 mg PO Q5H PRN PRN Reason: FEVER OR PAIN Alprazolam (Xanax -) 0.5 mg PO Q8H PRN PRN Reason: ANXIETY Last Admin: 06/07/16 21:00 Dose: 0.5 mg Apixaban (Eliquis -) 5 mg PO BID@0800,2000 [facility] Last Admin: 06/08/16 21:13 Dose: 5 mg Aspirin (Ecotrin -) 81 mg PO DAILY [facility] Last Admin: 06/08/16 11:49 Dose: 81 mg Atorvastatin Calcium (Lipitor -) 10 mg PO HS [facility] Last Admin: 06/08/16 21:14 Dose: 10 mg Epoetin Campos (Epogen -) 10,000 units IVPUSH ONCE ONE Stop: 06/09/16 08:01 Fenofibric Acid (Trilipix -) 45 mg PO DAILY [facility] Last Admin: 06/08/16 09:30 Dose: 45 mg Fentanyl (Sublimaze Injection -) 50 mcg IVPUSH [id number] PRN PRN Reason: PAIN Stop: 06/10/16 16:48 Last Admin: 06/07/16 18:20 Dose: 50 mcg Furosemide (Lasix -) 80 mg PO DAILY [facility] Last Admin: 06/08/16 09:27 Dose: 80 mg Metoprolol Succinate (Toprol Xl -) 200 mg PO BID [facility] Last Admin: 06/08/16 21:13 Dose: 200 mg Morphine Sulfate (Ms Contin -) 30 mg PO BID [facility] Last Admin: 06/08/16 21:14 Dose: 30 mg Morphine Sulfate (Msir -) 30 mg PO Q6H PRN PRN Reason: PAIN Last Admin: 06/08/16 01:56 Dose: 30 mg Sertraline HCl (Zoloft -) 50 mg PO DAILY [facility] Last Admin: 06/08/16 09:27 Dose: 50 mg Sevelamer Carbonate (Renvela Powder Packet -) 2.4 gm PO TIDCM [facility] Last Admin: 06/08/16 17:55 Dose: 2.4 gm Sitagliptin Phosphate (Januvia -) 25 mg PO ACBK [facility] Last Admin: 06/08/16 10:00 Dose: Not Given Sodium Thiosulfate (Sodium Thiosulfate) 25 gm IV MoWeFr@1200 [facility] - Objective Vital Signs: Vital Signs Temperature 98.6 F 06/08/16 20:43 Pulse Rate 95 H 06/08/16 20:43 Respiratory Rate 20 06/08/16 20:43 Blood Pressure 118/60 06/08/16 20:43 O2 Sat by Pulse Oximetry (%) 97 06/08/16 10:00 Labs: CBC, BMP 06/08/16 08:15 06/08/16 08:15 INR, PTT INR 1.59 (0.82-1.09) H 05/11/16 13:20 Problem List - Problems (1) PAD (peripheral artery disease) Code(s): I73.9 - PERIPHERAL VASCULAR DISEASE, UNSPECIFIED (2) Afib Code(s): I48.91 - UNSPECIFIED ATRIAL FIBRILLATION (3) End stage renal disease Code(s): N18.6 - END STAGE RENAL DISEASE (4) Cellulitis of foot Code(s): L03.119 - CELLULITIS OF UNSPECIFIED PART OF LIMB (5) Dyspnea Code(s): R06.00 - DYSPNEA, UNSPECIFIED (6) Congestive heart failure Code(s): I50.9 - HEART FAILURE, UNSPECIFIED Qualifiers: Qualified Code(s): I50.23 - Acute on chronic systolic (congestive) heart failure (7) HTN (hypertension) Code(s): I10 - ESSENTIAL (PRIMARY) HYPERTENSION (8) Diabetes Code(s): E11.9 - TYPE 2 DIABETES MELLITUS WITHOUT COMPLICATIONS (9) Anemia Code(s): D64.9 - ANEMIA, UNSPECIFIED Qualifiers: Qualified Code(s): D64.9 - Anemia, unspecified (10) HLD (hyperlipidemia) Code(s): E78.5 - HYPERLIPIDEMIA, UNSPECIFIED
[2016-06-09] MEDS: ALPRAZolam 0.25 MG TABLET PO PRN (01:32)
[2016-06-09] MEDS: sitaGLIPtin PHOSPHATE 25 MG TABLET (FP) PO SCH (06:57)
[2016-06-09] MEDS: SEVELAMER CARBONATE 2.4 GM POWDER PACKET PO SCH ×3 (08:00→17:41)
[2016-06-09] MEDS ORDERED: EPOETIN ALFA 10,000 UNIT/1 ML VIAL IVPUSH ONE (08:00)
--- NOTE | 2016-06-09 08:46 | PN ---
Progress Note (short form) - Note Progress Note: Vascular Surgery- Dr. Young Patient seen and examined during HD. Patient has some pain, states he is doing ok. Denies fever, chills. Last Vital Signs Temp Pulse Resp BP Pulse Ox 97.4 F L 97 H 16 114/66 97 06/09/16 05:52 06/09/16 08:33 06/09/16 08:33 06/09/16 08:33 06/08/16 22:00 Exam: Gen: NAD, getting HD LLE: s/p amputation left forefoot, dressing taken down, incision clean/dry/ intact, skin well-perfused, no surrounding erythema, dressing replaced with Xeroform, 4x4's, and Kerlex, patient tolerated well A/P POD#2 s/p Amputation left forefoot Dressing taken down and changed on rounds Daily dressing change Pain control
[2016-06-09 08:54] LABS: MCH 28.2 pg (25.7-33.7); MCHC 31.2 g/dl (32.0-35.9); MEAN CELL VOLUME 90.6 fl (80-96); MEAN PLT VOLUME 8.4 fl (7.5-11.1); PLATELET COUNT 288 K/MM3 (134-434); RDW 17.2 % (11.9-15.9); WHITE BLOOD COUNT 12.1 K/mm3 (4.0-10.0)
[2016-06-09 09:13] LABS: CALCIUM 8.4 mg/dL (8.5-10.1); COCKROFT - GAULT 16.84; CREATININE 6.1 mg/dL (0.7-1.3); PHOSPHOROUS 4.9 mg/dL (2.5-4.9)
[2016-06-09] MEDS ORDERED: PT OWN MED DRAWER 7, Y5N ONE ×2 (11:40→17:38)
[2016-06-09] MEDS: morphine SO4 SUSTAINED ACTING 15 MG TABLET.SA PO SCH ×2 (12:29→21:04)
[2016-06-09] MEDS: FENOFIBRIC ACID 45 MG CAP PO SCH (12:30)
[2016-06-09] MEDS: FUROSEMIDE 40 MG TABLET (FP) PO SCH (12:31)
[2016-06-09] MEDS: METOPROLOL SUCCINATE 100 MG TAB.SR.24H (FP) PO SCH ×2 (12:31→21:40)
[2016-06-09] MEDS: SERTRALINE HCL 50 MG TABLET (FP) PO SCH (12:32)
--- NOTE | 2016-06-09 12:37 | PN ---
Progress Note (short form) - Note Progress Note: Renal Follow up for ESRD Pt seen and examined during dialysis BP stable, Goal UF is 2.5L Catheter with good function Transfused 1 unit with PRBC no acute complaints Vital Signs Temperature 98.0 F 06/09/16 11:10 Pulse Rate 104 H 06/09/16 11:10 Respiratory Rate 16 06/09/16 11:10 Blood Pressure 126/72 06/09/16 11:10 O2 Sat by Pulse Oximetry (%) 97 06/08/16 22:00 Intake & Output 06/06/16 06/07/16 06/08/16 06/09/16 23:59 23:59 23:59 23:59 Intake Total 1250 1250 1030 180 Output Total 50 Balance 1250 1200 1030 180 Weight 211 lb 209 lb 2 oz Gen: awake and alert CVS: RRR, No M/R Lungs: CTA, Abd: soft NT/ND Ext: left foot in dressing CBC, BMP 06/09/16 08:20 06/09/16 08:20 Laboratory Tests 06/07/16 06/09/16 10:15 08:20 Random Glucose 89 Calcium 8.4 L 8.4 L Phosphorus 6.4 H 4.9 Albumin 2.5 L Current Medications Acetaminophen (Tylenol -) 650 mg PO Q6H PRN PRN Reason: PAIN Acetaminophen (Tylenol -) 650 mg PO Q5H PRN PRN Reason: FEVER OR PAIN Alprazolam (Xanax -) 0.5 mg PO Q8H PRN PRN Reason: ANXIETY Last Admin: 06/09/16 01:32 Dose: 0.5 mg Apixaban (Eliquis -) 5 mg PO BID@0800,2000 [facility] Last Admin: 06/08/16 21:13 Dose: 5 mg Aspirin (Ecotrin -) 81 mg PO DAILY [facility] Last Admin: 06/08/16 11:49 Dose: 81 mg Atorvastatin Calcium (Lipitor -) 10 mg PO HS [facility] Last Admin: 06/08/16 21:14 Dose: 10 mg Fenofibric Acid (Trilipix -) 45 mg PO DAILY [facility] Last Admin: 06/09/16 12:30 Dose: 45 mg Fentanyl (Sublimaze Injection -) 50 mcg IVPUSH [id number] PRN PRN Reason: PAIN Stop: 06/10/16 16:48 Last Admin: 06/07/16 18:20 Dose: 50 mcg Furosemide (Lasix -) 80 mg PO DAILY [facility] Last Admin: 06/09/16 12:31 Dose: 80 mg Metoprolol Succinate (Toprol Xl -) 200 mg PO BID [facility] Last Admin: 06/09/16 12:31 Dose: 200 mg Morphine Sulfate (Ms Contin -) 30 mg PO BID [facility] Last Admin: 06/09/16 12:29 Dose: 30 mg Morphine Sulfate (Msir -) 30 mg PO Q6H PRN PRN Reason: PAIN Last Admin: 06/08/16 22:54 Dose: 30 mg Sertraline HCl (Zoloft -) 50 mg PO DAILY [facility] Last Admin: 06/09/16 12:32 Dose: 50 mg Sevelamer Carbonate (Renvela Powder Packet -) 2.4 gm PO TIDCM [facility] Last Admin: 06/09/16 12:32 Dose: 2.4 gm Sitagliptin Phosphate (Januvia -) 25 mg PO ACBK [facility] Last Admin: 06/09/16 06:57 Dose: Not Given Sodium Thiosulfate (Sodium Thiosulfate) 25 gm IV MoWeFr@1200 MARY A/P 60 year old gentleman with PMhx of ESRD (recently started on dialysis), CAD s/p CABG, DM Type 2, Depression, CHF who with LE weakness s/p recent fall and wound on right foot. #ESRD on HD with fluid overload tolerating HD well today #Suspected Caliphyalxis Continue sodium thiosulfate IVPB with dialysis 3x weekly with HD continue phos binders avoid Vit D analogs and ca supplamention #PVD/Cyanosis of finer Vascular Follow up Pain control #Anxiety Xanex PRN #Anemia Transfused 1 unit with HD today continue TR with Hd Won Weiss DO
--- NOTE | 2016-06-09 13:25 | PATH ---
Surgical Pathology Report Patient Name: WILLA ROSENBAUM [facility]. Rec. #: [id number] /Age/Gender: 1955 (Age: 60) / M Account: [id number] Location: [address] [place] [address]/[facility] Taken: 06/07/2016 Received: 06/08/2016 Reported: 06/09/2016 Physicians: Fer Young M.D. Specimen(s) Received LEFT TRANSMETATARSAL Clinical History Diabetes, cellulitis, gangrene left foot Final Diagnosis FOOT, LEFT, TRANSMETATARSAL AMPUTATION: SKIN, UNDERLYING SOFT TISSUE AND BONE WITH GANGRENOUS NECROSIS. SKIN AND SOFT TISSUE AT RESECTION MARGIN APPEAR VIABLE WITH FOCAL HEMORRHAGE. BONES AT RESECTION MARGIN APPEAR VIABLE. Electronically Signed Prakash Horn M.D. Gross Description Received in formalin labeled "left transmetatarsal foot" is a 12.0 x 9.5 x 3.8 cm transmetatarsal foot amputation. The specimen displays a 9.0 x 6.5 cm black, gangrenous lesion at the distal aspect of the foot, involving all 5 digits. The lesion extends to and involves the underlying bone. The lesion is focally 2.5 cm from the skin and soft tissue margin of resection. [employer] sections are submitted in 7 cassettes as follows: 1-lesion with underlying bone, following decalcification; 2-skin and soft tissue margin of resection; 3-bone margin from first digit, following decalcification; 4-bone margin from second digit, following decalcification; 5-bone margin from third digit, following decalcification; 6-bone margin from fourth digit, following decalcification; 7-bone margin from fifth digit, following decalcification. 06/08/2016 [facility]06/08/2016
[2016-06-09] MEDS: APIXABAN 5 MG TABLET PO SCH ×2 (15:55→21:04)
[2016-06-09] MEDS: ASPIRIN COATED 81 MG TABLET.EC PO SCH (15:55)
--- NOTE | 2016-06-09 18:20 | PN ---
Progress Note, Physician - Current Medication List Current Medications: Active Medications Acetaminophen (Tylenol -) 650 mg PO Q6H PRN PRN Reason: PAIN Acetaminophen (Tylenol -) 650 mg PO Q5H PRN PRN Reason: FEVER OR PAIN Alprazolam (Xanax -) 0.5 mg PO Q8H PRN PRN Reason: ANXIETY Last Admin: 06/09/16 01:32 Dose: 0.5 mg Apixaban (Eliquis -) 5 mg PO BID@0800,2000 [facility] Last Admin: 06/09/16 15:55 Dose: 5 mg Aspirin (Ecotrin -) 81 mg PO DAILY [facility] Last Admin: 06/09/16 15:55 Dose: 81 mg Atorvastatin Calcium (Lipitor -) 10 mg PO HS [facility] Last Admin: 06/08/16 21:14 Dose: 10 mg Fenofibric Acid (Trilipix -) 45 mg PO DAILY [facility] Last Admin: 06/09/16 12:30 Dose: 45 mg Fentanyl (Sublimaze Injection -) 50 mcg IVPUSH [id number] PRN PRN Reason: PAIN Stop: 06/10/16 16:48 Last Admin: 06/07/16 18:20 Dose: 50 mcg Furosemide (Lasix -) 80 mg PO DAILY [facility] Last Admin: 06/09/16 12:31 Dose: 80 mg Metoprolol Succinate (Toprol Xl -) 200 mg PO BID [facility] Last Admin: 06/09/16 12:31 Dose: 200 mg Morphine Sulfate (Ms Contin -) 30 mg PO BID [facility] Last Admin: 06/09/16 12:29 Dose: 30 mg Morphine Sulfate (Msir -) 30 mg PO Q6H PRN PRN Reason: PAIN Last Admin: 06/08/16 22:54 Dose: 30 mg Sertraline HCl (Zoloft -) 50 mg PO DAILY [facility] Last Admin: 06/09/16 12:32 Dose: 50 mg Sevelamer Carbonate (Renvela Powder Packet -) 2.4 gm PO TIDCM [facility] Last Admin: 06/09/16 17:41 Dose: 2.4 gm Sitagliptin Phosphate (Januvia -) 25 mg PO ACBK [facility] Last Admin: 06/09/16 06:57 Dose: Not Given Sodium Thiosulfate (Sodium Thiosulfate) 25 gm IV MoWeFr@1200 [facility] - Objective Vital Signs: Vital Signs Temperature 98.0 F 04/14/17 11:10 Pulse Rate 104 H 06/09/16 11:10 Respiratory Rate 16 06/09/16 11:10 Blood Pressure 105/58 06/09/16 11:30 O2 Sat by Pulse Oximetry (%) 97 06/08/16 22:00 Labs: CBC, BMP 06/09/16 08:20 06/09/16 08:20 INR, PTT INR 1.59 (0.82-1.09) H 05/11/16 13:20 Problem List - Problems (1) PAD (peripheral artery disease) Code(s): I73.9 - PERIPHERAL VASCULAR DISEASE, UNSPECIFIED (2) Afib Code(s): I48.91 - UNSPECIFIED ATRIAL FIBRILLATION (3) End stage renal disease Code(s): N18.6 - END STAGE RENAL DISEASE (4) Cellulitis of foot Code(s): L03.119 - CELLULITIS OF UNSPECIFIED PART OF LIMB (5) Dyspnea Code(s): R06.00 - DYSPNEA, UNSPECIFIED (6) Congestive heart failure Code(s): I50.9 - HEART FAILURE, UNSPECIFIED Qualifiers: Qualified Code(s): I50.23 - Acute on chronic systolic (congestive) heart failure (7) HTN (hypertension) Code(s): I10 - ESSENTIAL (PRIMARY) HYPERTENSION (8) Diabetes Code(s): E11.9 - TYPE 2 DIABETES MELLITUS WITHOUT COMPLICATIONS (9) Anemia Code(s): D64.9 - ANEMIA, UNSPECIFIED Qualifiers: Qualified Code(s): D64.9 - Anemia, unspecified (10) HLD (hyperlipidemia) Code(s): E78.5 - HYPERLIPIDEMIA, UNSPECIFIED
[2016-06-09] MEDS: ATORVASTATIN CA 10 MG TABLET (FP) PO SCH (21:05)
[2016-06-10] MEDS: morphine SULFATE IMMEDIATE RELEASE 30 MG TAB PO PRN ×2 (02:23→14:01)
[2016-06-10] MEDS: sitaGLIPtin PHOSPHATE 25 MG TABLET (FP) PO SCH (06:39)
[2016-06-10 09:10] LABS: BASOPHIL 1.3 % (0-2.0); MCH 28.4 pg (25.7-33.7); MCHC 31.8 g/dl (32.0-35.9); MEAN CELL VOLUME 89.2 fl (80-96); MEAN PLT VOLUME 8.3 fl (7.5-11.1); NEUTROPHILS 76.9 % (42.8-82.8); PLATELET COUNT 322 K/MM3 (134-434); RDW 17.9 % (11.9-15.9); WHITE BLOOD COUNT 13.3 K/mm3 (4.0-10.0)
[2016-06-10] MEDS ORDERED: PT OWN MED DRAWER 7, Y5N ONE (09:14)
[2016-06-10 09:17] LABS: CALCIUM 8.5 mg/dL (8.5-10.1); COCKROFT - GAULT 21.19; CREATININE 4.8 mg/dL (0.7-1.3); PHOSPHOROUS 2.9 mg/dL (2.5-4.9)
[2016-06-10] MEDS: METOPROLOL SUCCINATE 100 MG TAB.SR.24H (FP) PO SCH ×2 (09:19→23:24)
[2016-06-10] MEDS: ASPIRIN COATED 81 MG TABLET.EC PO SCH (09:19)
[2016-06-10] MEDS: FUROSEMIDE 40 MG TABLET (FP) PO SCH (09:19)
[2016-06-10] MEDS: FENOFIBRIC ACID 45 MG CAP PO SCH (09:20)
[2016-06-10] MEDS: SEVELAMER CARBONATE 2.4 GM POWDER PACKET PO SCH ×3 (09:20→17:24)
[2016-06-10] MEDS: APIXABAN 5 MG TABLET PO SCH ×2 (09:20→21:28)
[2016-06-10] MEDS: SERTRALINE HCL 50 MG TABLET (FP) PO SCH (09:20)
[2016-06-10] MEDS: morphine SO4 SUSTAINED ACTING 15 MG TABLET.SA PO SCH ×2 (10:16→21:28)
--- NOTE | 2016-06-10 11:32 | PN ---
Progress Note (short form) - Note Progress Note: Renal Follow up for ESRD Pt seen and examined at the bedside reports that he was in alot of pain when they moved him last night continues to have pain in the LLE just received AM pain meds Vital Signs Temperature 97.5 F L 06/10/16 06:10 Pulse Rate 97 H 06/10/16 06:10 Respiratory Rate 18 06/10/16 06:10 Blood Pressure 133/66 06/10/16 06:10 O2 Sat by Pulse Oximetry (%) 98 06/09/16 22:00 Intake & Output 06/07/16 06/08/16 06/09/16 06/10/16 23:59 23:59 23:59 23:59 Intake Total 1250 1030 330 375 Output Total 50 Balance 1200 1030 330 375 Weight 211 lb 209 lb 2 oz 207 lb Gen: awake and alert CVS: RRR, No M/R Lungs: CTA, Abd: soft NT/ND Ext: left foot in dressing CBC, BMP 06/10/16 08:03 06/10/16 08:03 Current Medications Acetaminophen (Tylenol -) 650 mg PO Q6H PRN PRN Reason: PAIN Acetaminophen (Tylenol -) 650 mg PO Q5H PRN PRN Reason: FEVER OR PAIN Alprazolam (Xanax -) 0.5 mg PO Q8H PRN PRN Reason: ANXIETY Last Admin: 06/09/16 01:32 Dose: 0.5 mg Apixaban (Eliquis -) 5 mg PO BID@0800,2000 [facility] Last Admin: 06/10/16 09:20 Dose: 5 mg Aspirin (Ecotrin -) 81 mg PO DAILY [facility] Last Admin: 06/10/16 09:19 Dose: 81 mg Atorvastatin Calcium (Lipitor -) 10 mg PO HS [facility] Last Admin: 06/09/16 21:05 Dose: 10 mg Fenofibric Acid (Trilipix -) 45 mg PO DAILY [facility] Last Admin: 06/10/16 09:20 Dose: 45 mg Fentanyl (Sublimaze Injection -) 50 mcg IVPUSH [id number] PRN PRN Reason: PAIN Stop: 06/10/16 16:48 Last Admin: 06/07/16 18:20 Dose: 50 mcg Furosemide (Lasix -) 80 mg PO DAILY [facility] Last Admin: 04/15/17 09:19 Dose: 80 mg Metoprolol Succinate (Toprol Xl -) 200 mg PO BID [facility] Last Admin: 06/10/16 09:19 Dose: 200 mg Morphine Sulfate (Ms Contin -) 30 mg PO BID [facility] Last Admin: 06/10/16 10:16 Dose: 30 mg Morphine Sulfate (Msir -) 30 mg PO Q6H PRN PRN Reason: PAIN Last Admin: 06/10/16 02:23 Dose: 30 mg Sertraline HCl (Zoloft -) 50 mg PO DAILY [facility] Last Admin: 06/10/16 09:20 Dose: 50 mg Sevelamer Carbonate (Renvela Powder Packet -) 2.4 gm PO TIDCM [facility] Last Admin: 06/10/16 11:27 Dose: 2.4 gm Sitagliptin Phosphate (Januvia -) 25 mg PO ACBK [facility] Last Admin: 06/10/16 06:39 Dose: Not Given Sodium Thiosulfate (Sodium Thiosulfate) 25 gm IV MoWeFr@1200 MARY A/P 60 year old gentleman with PMhx of ESRD (recently started on dialysis), CAD s/p CABG, DM Type 2, Depression, CHF who with LE weakness s/p recent fall and wound on right foot. #PVD/Cyanosis of finer s/p TMA wound care Vascular follow up continue ASA #ESRD on HD with fluid overload no acute indication for dialysis today Renal diet Fluid restriction of 1.2L daily #Suspected Caliphyalxis Continue sodium thiosulfate IVPB with dialysis 3x weekly with HD continue phos binders avoid Vit D analogs and ca supplamention #Anxiety Xanex PRN #Anemia s/p transfusion Won Weiss DO
--- NOTE | 2016-06-10 19:45 | PN ---
Progress Note, Physician - Current Medication List Current Medications: Active Medications Acetaminophen (Tylenol -) 650 mg PO Q6H PRN PRN Reason: PAIN Acetaminophen (Tylenol -) 650 mg PO Q5H PRN PRN Reason: FEVER OR PAIN Apixaban (Eliquis -) 5 mg PO BID@0800,2000 [facility] Last Admin: 06/10/16 09:20 Dose: 5 mg Aspirin (Ecotrin -) 81 mg PO DAILY [facility] Last Admin: 06/10/16 09:19 Dose: 81 mg Atorvastatin Calcium (Lipitor -) 10 mg PO HS [facility] Last Admin: 06/09/16 21:05 Dose: 10 mg Fenofibric Acid (Trilipix -) 45 mg PO DAILY [facility] Last Admin: 06/10/16 09:20 Dose: 45 mg Furosemide (Lasix -) 80 mg PO DAILY [facility] Last Admin: 06/10/16 09:19 Dose: 80 mg Metoprolol Succinate (Toprol Xl -) 200 mg PO BID [facility] Last Admin: 06/10/16 09:19 Dose: 200 mg Morphine Sulfate (Ms Contin -) 30 mg PO BID [facility] Last Admin: 06/10/16 10:16 Dose: 30 mg Morphine Sulfate (Msir -) 30 mg PO Q6H PRN PRN Reason: PAIN Last Admin: 06/10/16 14:01 Dose: 30 mg Sertraline HCl (Zoloft -) 50 mg PO DAILY [facility] Last Admin: 06/10/16 09:20 Dose: 50 mg Sevelamer Carbonate (Renvela Powder Packet -) 2.4 gm PO TIDCM [facility] Last Admin: 06/10/16 17:24 Dose: 2.4 gm Sitagliptin Phosphate (Januvia -) 25 mg PO ACBK [facility] Last Admin: 06/10/16 06:39 Dose: Not Given Sodium Thiosulfate (Sodium Thiosulfate) 25 gm IV MoWeFr@1200 [facility] - Objective Vital Signs: Vital Signs Temperature 97.3 F L 06/10/16 13:56 Pulse Rate 107 H 06/10/16 13:56 Respiratory Rate 18 06/10/16 10:00 Blood Pressure 94/69 06/10/16 13:56 O2 Sat by Pulse Oximetry (%) 97 06/10/16 09:00 Labs: CBC, BMP 06/10/16 08:03 06/10/16 08:03 INR, PTT INR 1.59 (0.82-1.09) H 05/11/16 13:20 Problem List - Problems (1) PAD (peripheral artery disease) Code(s): I73.9 - PERIPHERAL VASCULAR DISEASE, UNSPECIFIED (2) Afib Code(s): I48.91 - UNSPECIFIED ATRIAL FIBRILLATION (3) End stage renal disease Code(s): N18.6 - END STAGE RENAL DISEASE (4) Cellulitis of foot Code(s): L03.119 - CELLULITIS OF UNSPECIFIED PART OF LIMB (5) Dyspnea Code(s): R06.00 - DYSPNEA, UNSPECIFIED (6) Congestive heart failure Code(s): I50.9 - HEART FAILURE, UNSPECIFIED Qualifiers: Qualified Code(s): I50.23 - Acute on chronic systolic (congestive) heart failure (7) HTN (hypertension) Code(s): I10 - ESSENTIAL (PRIMARY) HYPERTENSION (8) Diabetes Code(s): E11.9 - TYPE 2 DIABETES MELLITUS WITHOUT COMPLICATIONS (9) Anemia Code(s): D64.9 - ANEMIA, UNSPECIFIED Qualifiers: Qualified Code(s): D64.9 - Anemia, unspecified (10) HLD (hyperlipidemia) Code(s): E78.5 - HYPERLIPIDEMIA, UNSPECIFIED
[2016-06-10] MEDS: ATORVASTATIN CA 10 MG TABLET (FP) PO SCH (21:28)
[2016-06-11] MEDS: morphine SULFATE IMMEDIATE RELEASE 30 MG TAB PO PRN (01:57)
[2016-06-11] MEDS: sitaGLIPtin PHOSPHATE 25 MG TABLET (FP) PO SCH (06:54)
[2016-06-11 08:20] LABS: BASOPHIL 2.6 % (0-2.0); EOSINOPHIL 3.5 % (0-4.5); MCH 27.5 pg (25.7-33.7); MCHC 30.4 g/dl (32.0-35.9); MEAN CELL VOLUME 90.7 fl (80-96); MEAN PLT VOLUME 8.2 fl (7.5-11.1); NEUTROPHILS 72.5 % (42.8-82.8); PLATELET COUNT 286 K/MM3 (134-434); RDW 18.4 % (11.9-15.9); WHITE BLOOD COUNT 12.2 K/mm3 (4.0-10.0)
[2016-06-11] MEDS ORDERED: PT OWN MED DRAWER 7, Y5N ONE (08:47)
[2016-06-11] MEDS: APIXABAN 5 MG TABLET PO SCH ×2 (08:53→21:43)
[2016-06-11] MEDS: SEVELAMER CARBONATE 2.4 GM POWDER PACKET PO SCH ×3 (08:53→17:36)
[2016-06-11 08:58] LABS: CALCIUM 8.8 mg/dL (8.5-10.1)
[2016-06-11 09:02] LABS: COCKROFT - GAULT 16.6; CREATININE 6.2 mg/dL (0.7-1.3); PHOSPHOROUS 4.3 mg/dL (2.5-4.9)
[2016-06-11] MEDS: morphine SO4 SUSTAINED ACTING 15 MG TABLET.SA PO SCH ×2 (09:10→21:42)
[2016-06-11] MEDS: ASPIRIN COATED 81 MG TABLET.EC PO SCH (09:10)
[2016-06-11] MEDS: FUROSEMIDE 40 MG TABLET (FP) PO SCH (09:10)
[2016-06-11] MEDS: METOPROLOL SUCCINATE 50 MG TAB.SR.24H (FP) PO SCH ×2 (09:11→21:42)
[2016-06-11] MEDS: SERTRALINE HCL 50 MG TABLET (FP) PO SCH (09:11)
[2016-06-11] MEDS: FENOFIBRIC ACID 45 MG CAP PO SCH (09:11)
[2016-06-11] MEDS: ATORVASTATIN CA 10 MG TABLET (FP) PO SCH (21:42)
--- NOTE | 2016-06-11 22:26 | PN ---
Progress Note, Physician - Current Medication List Current Medications: Active Medications Acetaminophen (Tylenol -) 650 mg PO Q6H PRN PRN Reason: PAIN Acetaminophen (Tylenol -) 650 mg PO Q5H PRN PRN Reason: FEVER OR PAIN Apixaban (Eliquis -) 5 mg PO BID@0800,2000 [facility] Last Admin: 06/11/16 21:43 Dose: 5 mg Aspirin (Ecotrin -) 81 mg PO DAILY [facility] Last Admin: 06/11/16 09:10 Dose: 81 mg Atorvastatin Calcium (Lipitor -) 10 mg PO HS [facility] Last Admin: 06/11/16 21:42 Dose: 10 mg Fenofibric Acid (Trilipix -) 45 mg PO DAILY [facility] Last Admin: 06/11/16 09:11 Dose: 45 mg Furosemide (Lasix -) 80 mg PO DAILY [facility] Last Admin: 06/11/16 09:10 Dose: 80 mg Metoprolol Succinate (Toprol Xl -) 50 mg PO BID [facility] Last Admin: 06/11/16 21:42 Dose: 50 mg Morphine Sulfate (Ms Contin -) 30 mg PO BID [facility] Last Admin: 06/11/16 21:42 Dose: 30 mg Morphine Sulfate (Msir -) 30 mg PO Q6H PRN PRN Reason: PAIN Last Admin: 06/11/16 01:57 Dose: 30 mg Sertraline HCl (Zoloft -) 50 mg PO DAILY [facility] Last Admin: 06/11/16 09:11 Dose: 50 mg Sevelamer Carbonate (Renvela Powder Packet -) 2.4 gm PO TIDCM [facility] Last Admin: 06/11/16 17:36 Dose: 2.4 gm Sitagliptin Phosphate (Januvia -) 25 mg PO ACBK [facility] Last Admin: 06/11/16 06:54 Dose: Not Given Sodium Thiosulfate (Sodium Thiosulfate) 25 gm IV MoWeFr@1200 [facility] - Objective Vital Signs: Vital Signs Temperature 97.4 F L 06/11/16 05:52 Pulse Rate 97 H 06/11/16 14:10 Respiratory Rate 18 06/11/16 20:22 Blood Pressure 101/61 06/11/16 14:10 O2 Sat by Pulse Oximetry (%) 96 06/11/16 20:22 Labs: CBC, BMP 06/11/16 07:20 06/11/16 07:20 INR, PTT INR 1.59 (0.82-1.09) H 05/11/16 13:20 Problem List - Problems (1) PAD (peripheral artery disease) Code(s): I73.9 - PERIPHERAL VASCULAR DISEASE, UNSPECIFIED (2) Afib Code(s): I48.91 - UNSPECIFIED ATRIAL FIBRILLATION (3) End stage renal disease Code(s): N18.6 - END STAGE RENAL DISEASE (4) Cellulitis of foot Code(s): L03.119 - CELLULITIS OF UNSPECIFIED PART OF LIMB (5) Dyspnea Code(s): R06.00 - DYSPNEA, UNSPECIFIED (6) Congestive heart failure Code(s): I50.9 - HEART FAILURE, UNSPECIFIED Qualifiers: Qualified Code(s): I50.23 - Acute on chronic systolic (congestive) heart failure (7) HTN (hypertension) Code(s): I10 - ESSENTIAL (PRIMARY) HYPERTENSION (8) Diabetes Code(s): E11.9 - TYPE 2 DIABETES MELLITUS WITHOUT COMPLICATIONS (9) Anemia Code(s): D64.9 - ANEMIA, UNSPECIFIED Qualifiers: Qualified Code(s): D64.9 - Anemia, unspecified (10) HLD (hyperlipidemia) Code(s): E78.5 - HYPERLIPIDEMIA, UNSPECIFIED
[2016-06-12] MEDS: morphine SULFATE IMMEDIATE RELEASE 30 MG TAB PO PRN (00:54)
[2016-06-12] MEDS: sitaGLIPtin PHOSPHATE 25 MG TABLET (FP) PO SCH (06:24)
[2016-06-12] MEDS ORDERED: PT OWN MED DRAWER 7, Y5N ONE ×2 (08:27→16:51)
--- NOTE | 2016-06-12 08:36 | PN ---
Progress Note (short form) - Note Progress Note: VSS Right toes with blisters, no erythema, no gangrene Left TMA wound clean and dry, flaps viable. Dressing applied OK for transfer to SNF.
--- NOTE | 2016-06-12 08:41 | EKG ---
Test Reason : Blood Pressure : / mmHG Vent. Rate : 140 BPM Atrial Rate : 113 BPM P-R Int : 000 ms QRS Dur : 112 ms QT Int : 342 ms P-R-T Axes : 000 092 255 degrees QTc Int : 522 ms ATRIAL FIBRILLATION WITH RAPID VENTRICULAR RESPONSE WITH PREMATURE VENTRICULAR OR ABERRANTLY CONDUCTED COMPLEXES RIGHTWARD AXIS ABNORMAL ECG WHEN COMPARED WITH ECG OF 11-MAY-2016 12:46, PREMATURE VENTRICULAR COMPLEXES NOW SEEN Confirmed by SONA CAO MD ([id number]) on 06/12/2016 8:41:40 AM Referred By: Confirmed By:SONA CAO MD
[2016-06-12] MEDS: SEVELAMER CARBONATE 2.4 GM POWDER PACKET PO SCH ×3 (08:54→17:00)
[2016-06-12] MEDS: APIXABAN 5 MG TABLET PO SCH ×2 (08:54→21:09)
[2016-06-12] MEDS: SODIUM THIOSULFATE 12.5 GM/50 ML VIAL IV SCH (11:27)
[2016-06-12 11:28] LABS: MCH 27.7 pg (25.7-33.7); MCHC 31.1 g/dl (32.0-35.9); MEAN CELL VOLUME 88.9 fl (80-96); MEAN PLT VOLUME 8.5 fl (7.5-11.1); PLATELET COUNT 277 K/MM3 (134-434); RDW 18.5 % (11.9-15.9)
[2016-06-12] MEDS ORDERED: EPOETIN ALFA 10,000 UNIT/1 ML VIAL IVPUSH ONE (11:30)
[2016-06-12 11:57] LABS: ALBUMIN 2.3 g/dl (3.4-5.0); CALCIUM 8.3 mg/dL (8.5-10.1)
--- NOTE | 2016-06-12 11:57 | PN ---
Progress Note (short form) - Note Progress Note: Renal Follow up for ESRD Pt seen and examined during dialysis BP stable, catheter with good function goal UF is 3L to get sodium thiosulfate IVBP toay with HD pt very upset about his overall condition no sob or chest pain Vital Signs Temperature 98.4 F 06/12/16 10:25 Pulse Rate 106 H 06/12/16 11:30 Respiratory Rate 18 06/12/16 11:30 Blood Pressure 105/53 06/12/16 11:30 O2 Sat by Pulse Oximetry (%) 96 06/11/16 22:00 Intake & Output 06/09/16 06/10/16 06/11/16 06/12/16 23:59 23:59 23:59 23:59 Intake Total 330 1305 1500 Balance 330 1305 1500 Weight 209 lb 2 oz 207 lb 210 lb 4.8 oz 210 lb 2 oz Gen: awake and alert CVS: RRR, No M/R Lungs: CTA, Abd: soft NT/ND Ext: left foot in dressing CBC, BMP 06/12/16 10:45 Current Medications Acetaminophen (Tylenol -) 650 mg PO Q6H PRN PRN Reason: PAIN Acetaminophen (Tylenol -) 650 mg PO Q5H PRN PRN Reason: FEVER OR PAIN Apixaban (Eliquis -) 5 mg PO BID@0800,1999 [facility] Last Admin: 06/12/16 08:54 Dose: 5 mg Aspirin (Ecotrin -) 81 mg PO DAILY [facility] Last Admin: 06/11/16 09:10 Dose: 81 mg Atorvastatin Calcium (Lipitor -) 10 mg PO HS [facility] Last Admin: 06/11/16 21:42 Dose: 10 mg Fenofibric Acid (Trilipix -) 45 mg PO DAILY [facility] Last Admin: 06/11/16 09:11 Dose: 45 mg Furosemide (Lasix -) 80 mg PO DAILY [facility] Last Admin: 06/11/16 09:10 Dose: 80 mg Metoprolol Succinate (Toprol Xl -) 50 mg PO BID [facility] Last Admin: 06/11/16 21:42 Dose: 50 mg Morphine Sulfate (Ms Contin -) 30 mg PO BID [facility] Last Admin: 06/11/16 21:42 Dose: 30 mg Morphine Sulfate (Msir -) 30 mg PO Q6H PRN PRN Reason: PAIN Last Admin: 06/12/16 00:54 Dose: 30 mg Sertraline HCl (Zoloft -) 50 mg PO DAILY [facility] Last Admin: 06/11/16 09:11 Dose: 50 mg Sevelamer Carbonate (Renvela Powder Packet -) 2.4 gm PO TIDCM [facility] Last Admin: 06/12/16 08:54 Dose: 2.4 gm Sitagliptin Phosphate (Januvia -) 25 mg PO ACBK [facility] Last Admin: 06/12/16 06:24 Dose: Not Given Sodium Thiosulfate (Sodium Thiosulfate) 25 gm IV MoWeFr@1200 [facility] Last Admin: 06/12/16 11:27 Dose: 25 gm A/P 60 year old gentleman with PMhx of ESRD (recently started on dialysis), CAD s/p CABG, DM Type 2, Depression, CHF who with LE weakness s/p recent fall and wound on right foot. 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
[2016-06-12 12:01] LABS: BILIRUBIN,TOTAL 0.9 mg/dL (0.2-1.0); COCKROFT - GAULT 14.96; CREATININE 6.9 mg/dL (0.7-1.3); PHOSPHOROUS 4.4 mg/dL (2.5-4.9); TOT PROT 6.2 g/dl (6.4-8.2)
[2016-06-12] MEDS: ASPIRIN COATED 81 MG TABLET.EC PO SCH (14:33)
[2016-06-12] MEDS: morphine SO4 SUSTAINED ACTING 15 MG TABLET.SA PO SCH ×2 (14:34→21:08)
[2016-06-12] MEDS: SERTRALINE HCL 50 MG TABLET (FP) PO SCH (14:35)
[2016-06-12] MEDS: METOPROLOL SUCCINATE 50 MG TAB.SR.24H (FP) PO SCH ×2 (14:35→21:09)
[2016-06-12] MEDS: FUROSEMIDE 40 MG TABLET (FP) PO SCH (14:35)
[2016-06-12] MEDS: FENOFIBRIC ACID 45 MG CAP PO SCH (14:43)
--- NOTE | 2016-06-12 15:09 | EKG ---
Test Reason : Blood Pressure : / mmHG Vent. Rate : 122 BPM Atrial Rate : 340 BPM P-R Int : 000 ms QRS Dur : 114 ms QT Int : 334 ms P-R-T Axes : 000 089 266 degrees QTc Int : 475 ms ATRIAL FIBRILLATION WITH RAPID VENTRICULAR RESPONSE ABNORMAL ECG WHEN COMPARED WITH ECG OF 07-JUN-2016 17:00, NO SIGNIFICANT CHANGE WAS FOUND Confirmed by SONA CAO MD ([id number]) on 06/12/2016 3:09:30 PM Referred By: Confirmed By:SONA CAO MD
--- NOTE | 2016-06-12 19:55 | PN ---
Progress Note, Physician - Current Medication List Current Medications: Active Medications Acetaminophen (Tylenol -) 650 mg PO Q6H PRN PRN Reason: PAIN Acetaminophen (Tylenol -) 650 mg PO Q5H PRN PRN Reason: FEVER OR PAIN Apixaban (Eliquis -) 5 mg PO BID@0800,2000 [facility] Last Admin: 06/12/16 08:54 Dose: 5 mg Aspirin (Ecotrin -) 81 mg PO DAILY [facility] Last Admin: 06/12/16 14:33 Dose: Not Given Atorvastatin Calcium (Lipitor -) 10 mg PO HS [facility] Last Admin: 06/11/16 21:42 Dose: 10 mg Fenofibric Acid (Trilipix -) 45 mg PO DAILY [facility] Last Admin: 06/12/16 14:43 Dose: 45 mg Furosemide (Lasix -) 80 mg PO DAILY [facility] Last Admin: 06/12/16 14:35 Dose: 80 mg Metoprolol Succinate (Toprol Xl -) 50 mg PO BID [facility] Last Admin: 06/12/16 14:35 Dose: 50 mg Morphine Sulfate (Ms Contin -) 30 mg PO BID [facility] Last Admin: 06/12/16 14:34 Dose: 30 mg Morphine Sulfate (Msir -) 30 mg PO Q6H PRN PRN Reason: PAIN Last Admin: 06/12/16 00:54 Dose: 30 mg Sertraline HCl (Zoloft -) 50 mg PO DAILY [facility] Last Admin: 06/12/16 14:35 Dose: 50 mg Sevelamer Carbonate (Renvela Powder Packet -) 2.4 gm PO TIDCM [facility] Last Admin: 06/12/16 17:00 Dose: 2.4 gm Sitagliptin Phosphate (Januvia -) 25 mg PO ACBK [facility] Last Admin: 06/12/16 06:24 Dose: Not Given Sodium Thiosulfate (Sodium Thiosulfate) 25 gm IV MoWeFr@1200 [facility] Last Admin: 06/12/16 11:27 Dose: 25 gm - Objective Vital Signs: Vital Signs Temperature 97.7 F 06/12/16 14:00 Pulse Rate 88 06/12/16 14:06 Respiratory Rate 18 06/12/16 14:06 Blood Pressure 120/35 06/12/16 14:06 O2 Sat by Pulse Oximetry (%) 96 06/12/16 10:00 Labs: CBC, BMP 06/12/16 10:45 06/12/16 10:45 INR, PTT INR 1.59 (0.82-1.09) H 05/11/16 13:20 Problem List - Problems (1) PAD (peripheral artery disease) Code(s): I73.9 - PERIPHERAL VASCULAR DISEASE, UNSPECIFIED (2) Afib Code(s): I48.91 - UNSPECIFIED ATRIAL FIBRILLATION (3) End stage renal disease Code(s): N18.6 - END STAGE RENAL DISEASE (4) Cellulitis of foot Code(s): L03.119 - CELLULITIS OF UNSPECIFIED PART OF LIMB (5) Dyspnea Code(s): R06.00 - DYSPNEA, UNSPECIFIED (6) Congestive heart failure Code(s): I50.9 - HEART FAILURE, UNSPECIFIED Qualifiers: Qualified Code(s): I50.23 - Acute on chronic systolic (congestive) heart failure (7) HTN (hypertension) Code(s): I10 - ESSENTIAL (PRIMARY) HYPERTENSION (8) Diabetes Code(s): E11.9 - TYPE 2 DIABETES MELLITUS WITHOUT COMPLICATIONS (9) Anemia Code(s): D64.9 - ANEMIA, UNSPECIFIED Qualifiers: Qualified Code(s): D64.9 - Anemia, unspecified (10) HLD (hyperlipidemia) Code(s): E78.5 - HYPERLIPIDEMIA, UNSPECIFIED
[2016-06-12] MEDS: ATORVASTATIN CA 10 MG TABLET (FP) PO SCH (21:09)
[2016-06-13] MEDS: sitaGLIPtin PHOSPHATE 25 MG TABLET (FP) PO SCH (06:18)
[2016-06-13] MEDS ORDERED: PT OWN MED DRAWER 7, Y5N ONE ×3 (08:20→18:46)
[2016-06-13] MEDS: APIXABAN 5 MG TABLET PO SCH ×2 (08:23→21:00)
[2016-06-13] MEDS: SEVELAMER CARBONATE 2.4 GM POWDER PACKET PO SCH ×3 (08:23→17:11)
[2016-06-13] MEDS: METOPROLOL SUCCINATE 50 MG TAB.SR.24H (FP) PO SCH ×2 (11:15→21:35)
[2016-06-13] MEDS: FUROSEMIDE 40 MG TABLET (FP) PO SCH (11:15)
[2016-06-13] MEDS: SERTRALINE HCL 50 MG TABLET (FP) PO SCH (11:15)
[2016-06-13] MEDS: FENOFIBRIC ACID 45 MG CAP PO SCH (11:18)
[2016-06-13] MEDS: ASPIRIN COATED 81 MG TABLET.EC PO SCH ×2 (11:18→11:38)
[2016-06-13] MEDS: morphine SO4 SUSTAINED ACTING 15 MG TABLET.SA PO SCH ×2 (11:20→21:34)
[2016-06-13] MEDS ORDERED: EPOETIN ALFA 20,000 UNIT/1 ML VIAL IVPUSH ONE (11:51)
--- NOTE | 2016-06-13 11:51 | PN ---
Progress Note (short form) - Note Progress Note: Renal Follow up for ESRD Pt seen and examined at the bedside no acute complaints no sob or chest pain no fever or chills has pain in the right foot able to ambulate a little Vital Signs Temperature 97.5 F L 06/13/16 05:55 Pulse Rate 100 H 06/13/16 05:55 Respiratory Rate 20 06/13/16 05:55 Blood Pressure 121/70 06/13/16 05:55 O2 Sat by Pulse Oximetry (%) 96 06/12/16 22:00 Intake & Output 06/10/16 06/11/16 06/12/16 06/13/16 23:59 23:59 23:59 23:59 Intake Total 1305 1500 50 Output Total 0 Balance 1305 1500 50 Weight 207 lb 210 lb 4.8 oz 210 lb 2 oz 204 lb 3 oz Gen: awake and alert CVS: RRR, No M/R Lungs: CTA, Abd: soft NT/ND Ext: left foot in dressing CBC, BMP 06/12/16 10:45 06/12/16 10:45 A/P 60 year old gentleman with PMhx of ESRD (recently started on dialysis), CAD s/p CABG, DM Type 2, Depression, CHF who with LE weakness s/p recent fall and wound on right foot. #PVD/Cyanosis of finer Wound Care SNF placement #ESRD on HD with fluid overload for dialysis tomorrow fluid restriction #Caliphyalxis Continue sodium thiosulfate IVPB with dialysis 3x weekly with HD continue phos binders avoid Vit D analogs and ca supplementation #Anxiety Xanex PRN #Anemia s/p transfusion epogen with HD if HGb less then 8, will require PRBC transfusion Won Weiss DO
[2016-06-13] MEDS: ATORVASTATIN CA 10 MG TABLET (FP) PO SCH (21:34)
--- NOTE | 2016-06-13 23:20 | PN ---
Progress Note, Physician - Current Medication List Current Medications: Active Medications Acetaminophen (Tylenol -) 650 mg PO Q6H PRN PRN Reason: PAIN Acetaminophen (Tylenol -) 650 mg PO Q5H PRN PRN Reason: FEVER OR PAIN Apixaban (Eliquis -) 5 mg PO BID@0800,2000 [facility] Last Admin: 06/13/16 21:00 Dose: 5 mg Aspirin (Ecotrin -) 81 mg PO DAILY [facility] Last Admin: 06/13/16 11:38 Dose: 81 mg Atorvastatin Calcium (Lipitor -) 10 mg PO HS [facility] Last Admin: 06/13/16 21:34 Dose: 10 mg Epoetin Campos (Procrit -) 20,000 unit IVPUSH ONCE ONE Stop: 06/13/16 12:16 Fenofibric Acid (Trilipix -) 45 mg PO DAILY [facility] Last Admin: 06/13/16 11:18 Dose: 45 mg Furosemide (Lasix -) 80 mg PO DAILY [facility] Last Admin: 06/13/16 11:15 Dose: 80 mg Metoprolol Succinate (Toprol Xl -) 50 mg PO BID [facility] Last Admin: 06/13/16 21:35 Dose: 50 mg Morphine Sulfate (Ms Contin -) 30 mg PO BID [facility] Last Admin: 06/13/16 21:34 Dose: 30 mg Sertraline HCl (Zoloft -) 50 mg PO DAILY [facility] Last Admin: 06/13/16 11:15 Dose: 50 mg Sevelamer Carbonate (Renvela Powder Packet -) 2.4 gm PO TIDCM [facility] Last Admin: 06/13/16 17:11 Dose: 2.4 gm Sitagliptin Phosphate (Januvia -) 25 mg PO ACBK [facility] Last Admin: 06/13/16 06:18 Dose: Not Given Sodium Thiosulfate (Sodium Thiosulfate) 25 gm IV MoWeFr@1200 [facility] Last Admin: 06/12/16 11:27 Dose: 25 gm - Objective Vital Signs: Vital Signs Temperature 98.3 F 06/13/16 18:00 Pulse Rate 100 H 06/13/16 18:00 Respiratory Rate 20 06/13/16 21:36 Blood Pressure 133/68 06/13/16 21:36 O2 Sat by Pulse Oximetry (%) 100 06/13/16 22:00 Labs: CBC, BMP 06/12/16 10:45 06/12/16 10:45 INR, PTT INR 1.59 (0.82-1.09) H 05/11/16 13:20 Problem List - Problems (1) PAD (peripheral artery disease) Code(s): I73.9 - PERIPHERAL VASCULAR DISEASE, UNSPECIFIED (2) Afib Code(s): I48.91 - UNSPECIFIED ATRIAL FIBRILLATION (3) End stage renal disease Code(s): N18.6 - END STAGE RENAL DISEASE (4) Cellulitis of foot Code(s): L03.119 - CELLULITIS OF UNSPECIFIED PART OF LIMB (5) Dyspnea Code(s): R06.00 - DYSPNEA, UNSPECIFIED (6) Congestive heart failure Code(s): I50.9 - HEART FAILURE, UNSPECIFIED Qualifiers: Qualified Code(s): I50.23 - Acute on chronic systolic (congestive) heart failure (7) HTN (hypertension) Code(s): I10 - ESSENTIAL (PRIMARY) HYPERTENSION (8) Diabetes Code(s): E11.9 - TYPE 2 DIABETES MELLITUS WITHOUT COMPLICATIONS (9) Anemia Code(s): D64.9 - ANEMIA, UNSPECIFIED Qualifiers: Qualified Code(s): D64.9 - Anemia, unspecified (10) HLD (hyperlipidemia) Code(s): E78.5 - HYPERLIPIDEMIA, UNSPECIFIED
[2016-06-14] MEDS: sitaGLIPtin PHOSPHATE 25 MG TABLET (FP) PO SCH (06:10)
[2016-06-14] MEDS ORDERED: PT OWN MED DRAWER 7, Y5N ONE ×4 (07:48→17:04)
[2016-06-14] MEDS: SEVELAMER CARBONATE 2.4 GM POWDER PACKET PO SCH ×3 (08:10→17:06)
[2016-06-14] MEDS: APIXABAN 5 MG TABLET PO SCH ×2 (08:10→21:00)
[2016-06-14] MEDS: FENOFIBRIC ACID 45 MG CAP PO SCH ×2 (10:00→14:47)
[2016-06-14] MEDS: morphine SO4 SUSTAINED ACTING 15 MG TABLET.SA PO SCH ×3 (10:00→21:35)
[2016-06-14] MEDS: METOPROLOL SUCCINATE 50 MG TAB.SR.24H (FP) PO SCH ×3 (10:00→21:34)
[2016-06-14] MEDS: SERTRALINE HCL 50 MG TABLET (FP) PO SCH ×2 (10:00→14:47)
[2016-06-14] MEDS: ASPIRIN COATED 81 MG TABLET.EC PO SCH ×2 (10:00→14:47)
[2016-06-14] MEDS: FUROSEMIDE 40 MG TABLET (FP) PO SCH (10:00)
[2016-06-14] MEDS ORDERED: EPOETIN ALFA 20,000 UNIT/1 ML VIAL IVPUSH ONE (10:30)
[2016-06-14 10:51] LABS: MCH 28.4 pg (25.7-33.7); MCHC 32.1 g/dl (32.0-35.9); MEAN CELL VOLUME 88.6 fl (80-96); MEAN PLT VOLUME 8.5 fl (7.5-11.1); PLATELET COUNT 281 K/MM3 (134-434); RDW 17.8 % (11.9-15.9)
--- NOTE | 2016-06-14 11:04 | PN ---
Progress Note (short form) - Note Progress Note: Renal Follow up for ESRD Pt seen and examined during dialysis BP stable, catheter with good function has pain in the foot that is helped with pain meds Vital Signs Temperature 97.4 F L 06/14/16 09:14 Pulse Rate 100 H 06/14/16 09:14 Respiratory Rate 17 06/14/16 09:14 Blood Pressure 119/68 06/14/16 09:14 O2 Sat by Pulse Oximetry (%) 100 06/14/16 10:00 Intake & Output 06/11/16 06/12/16 06/13/16 06/14/16 23:59 23:59 23:59 23:59 Intake Total 1500 50 600 100 Output Total 0 275 Balance 1500 50 325 100 Weight 210 lb 4.8 oz 210 lb 2 oz 204 lb 3 oz Gen: awake and alert CVS: RRR, No M/R Lungs: CTA, Abd: soft NT/ND Ext: left foot in dressing Current Medications Acetaminophen (Tylenol -) 650 mg PO Q6H PRN PRN Reason: PAIN Acetaminophen (Tylenol -) 650 mg PO Q5H PRN PRN Reason: FEVER OR PAIN Apixaban (Eliquis -) 5 mg PO BID@0800,2000 [facility] Last Admin: 06/14/16 08:10 Dose: 5 mg Aspirin (Ecotrin -) 81 mg PO DAILY [facility] Last Admin: 06/13/16 11:38 Dose: 81 mg Atorvastatin Calcium (Lipitor -) 10 mg PO HS [facility] Last Admin: 06/13/16 21:34 Dose: 10 mg Fenofibric Acid (Trilipix -) 45 mg PO DAILY [facility] Last Admin: 06/13/16 11:18 Dose: 45 mg Furosemide (Lasix -) 80 mg PO DAILY [facility] Last Admin: 06/13/16 11:15 Dose: 80 mg Metoprolol Succinate (Toprol Xl -) 50 mg PO BID [facility] Last Admin: 06/13/16 21:35 Dose: 50 mg Morphine Sulfate (Ms Contin -) 30 mg PO BID [facility] Last Admin: 06/13/16 21:34 Dose: 30 mg Sertraline HCl (Zoloft -) 50 mg PO DAILY [facility] Last Admin: 06/13/16 11:15 Dose: 50 mg Sevelamer Carbonate (Renvela Powder Packet -) 2.4 gm PO TIDCM [facility] Last Admin: 06/14/16 08:10 Dose: 2.4 gm Sitagliptin Phosphate (Januvia -) 25 mg PO ACBK [facility] Last Admin: 06/14/16 06:10 Dose: Not Given Sodium Thiosulfate (Sodium Thiosulfate) 25 gm IV MoWeFr@1200 [facility] Last Admin: 06/12/16 11:27 Dose: 25 gm A/P 60 year old gentleman with PMhx of ESRD (recently started on dialysis), CAD s/p CABG, DM Type 2, Depression, CHF who with LE weakness s/p recent fall and wound on right foot. #PVD/Cyanosis of finer Wound Care SNF placement #ESRD on HD with fluid overload tolerating dialysis well UF goal is ~3L as tolerated #Caliphyalxis Continue sodium thiosulfate IVPB with dialysis 3x weekly with HD continue phos binders avoid Vit D analogs and ca supplementation #Anxiety Xanex PRN #Anemia s/p transfusion epogen with HD if HGb less then 8, will require PRBC transfusion Won Weiss DO
[2016-06-14 11:16] LABS: ALBUMIN 2.3 g/dl (3.4-5.0); BILIRUBIN,TOTAL 0.9 mg/dL (0.2-1.0); CALCIUM 8.7 mg/dL (8.5-10.1); CREATININE 5.9 mg/dL (0.7-1.3); PHOSPHOROUS 4.9 mg/dL (2.5-4.9); TOT PROT 6.2 g/dl (6.4-8.2)
[2016-06-14] MEDS: SODIUM THIOSULFATE 12.5 GM/50 ML VIAL IV SCH (11:54)
--- NOTE | 2016-06-14 21:26 | PN ---
Progress Note (short form) - Note Progress Note: Patient seen on dialysis. No new complaints Dressings dry. I will change dressings tomorrow and inspect wounds.
[2016-06-14] MEDS: ATORVASTATIN CA 10 MG TABLET (FP) PO SCH (21:35)
--- NOTE | 2016-06-14 23:55 | PN ---
Progress Note, Physician - Current Medication List Current Medications: Active Medications Acetaminophen (Tylenol -) 650 mg PO Q6H PRN PRN Reason: PAIN Acetaminophen (Tylenol -) 650 mg PO Q5H PRN PRN Reason: FEVER OR PAIN Apixaban (Eliquis -) 5 mg PO BID@0800,2000 [facility] Last Admin: 06/14/16 21:00 Dose: 5 mg Aspirin (Ecotrin -) 81 mg PO DAILY [facility] Last Admin: 06/14/16 14:47 Dose: 81 mg Atorvastatin Calcium (Lipitor -) 10 mg PO HS [facility] Last Admin: 06/14/16 21:35 Dose: 10 mg Fenofibric Acid (Trilipix -) 45 mg PO DAILY [facility] Last Admin: 06/14/16 14:47 Dose: 45 mg Furosemide (Lasix -) 80 mg PO DAILY [facility] Last Admin: 06/14/16 10:00 Dose: Not Given Metoprolol Succinate (Toprol Xl -) 50 mg PO BID [facility] Last Admin: 06/14/16 21:34 Dose: 50 mg Sertraline HCl (Zoloft -) 50 mg PO DAILY [facility] Last Admin: 06/14/16 14:47 Dose: 50 mg Sevelamer Carbonate (Renvela Powder Packet -) 2.4 gm PO TIDCM [facility] Last Admin: 06/14/16 17:06 Dose: 2.4 gm Sitagliptin Phosphate (Januvia -) 25 mg PO ACBK [facility] Last Admin: 06/14/16 06:10 Dose: Not Given Sodium Thiosulfate (Sodium Thiosulfate) 25 gm IV MoWeFr@1200 [facility] Last Admin: 06/14/16 11:54 Dose: 25 gm - Objective Vital Signs: Vital Signs Temperature 99.6 F 06/14/16 18:00 Pulse Rate 106 H 06/14/16 22:00 Respiratory Rate 20 06/14/16 22:00 Blood Pressure 106/72 06/14/16 22:00 O2 Sat by Pulse Oximetry (%) 100 06/14/16 22:00 Labs: CBC, BMP 06/14/16 10:15 06/14/16 10:15 INR, PTT INR 1.59 (0.82-1.09) H 05/11/16 13:20 Problem List - Problems (1) PAD (peripheral artery disease) Code(s): I73.9 - PERIPHERAL VASCULAR DISEASE, UNSPECIFIED (2) Afib Code(s): I48.91 - UNSPECIFIED ATRIAL FIBRILLATION (3) End stage renal disease Code(s): N18.6 - END STAGE RENAL DISEASE (4) Cellulitis of foot Code(s): L03.119 - CELLULITIS OF UNSPECIFIED PART OF LIMB (5) Dyspnea Code(s): R06.00 - DYSPNEA, UNSPECIFIED (6) Congestive heart failure Code(s): I50.9 - HEART FAILURE, UNSPECIFIED Qualifiers: Qualified Code(s): I50.23 - Acute on chronic systolic (congestive) heart failure (7) HTN (hypertension) Code(s): I10 - ESSENTIAL (PRIMARY) HYPERTENSION (8) Diabetes Code(s): E11.9 - TYPE 2 DIABETES MELLITUS WITHOUT COMPLICATIONS (9) Anemia Code(s): D64.9 - ANEMIA, UNSPECIFIED Qualifiers: Qualified Code(s): D64.9 - Anemia, unspecified (10) HLD (hyperlipidemia) Code(s): E78.5 - HYPERLIPIDEMIA, UNSPECIFIED
[2016-06-15 06:06] LABS: HEP B SURFACE AB Non Reactive (.)
[2016-06-15] MEDS: sitaGLIPtin PHOSPHATE 25 MG TABLET (FP) PO SCH (06:07)
[2016-06-15] MEDS: APIXABAN 5 MG TABLET PO SCH ×2 (07:55→19:59)
[2016-06-15] MEDS: SEVELAMER CARBONATE 2.4 GM POWDER PACKET PO SCH ×3 (07:55→17:01)
[2016-06-15] MEDS: SERTRALINE HCL 50 MG TABLET (FP) PO SCH (11:11)
[2016-06-15] MEDS: FUROSEMIDE 40 MG TABLET (FP) PO SCH (11:11)
[2016-06-15] MEDS: ASPIRIN COATED 81 MG TABLET.EC PO SCH (11:11)
[2016-06-15] MEDS: FENOFIBRIC ACID 45 MG CAP PO SCH (11:11)
[2016-06-15] MEDS: METOPROLOL SUCCINATE 50 MG TAB.SR.24H (FP) PO SCH ×2 (11:12→21:26)
[2016-06-15] MEDS: morphine SO4 SUSTAINED ACTING 15 MG TABLET.SA PO SCH ×2 (11:13→21:26)
[2016-06-15] MEDS ORDERED: PT OWN MED DRAWER 7, Y5N ONE (17:11)
--- NOTE | 2016-06-15 19:23 | PN ---
Progress Note, Physician - Current Medication List Current Medications: Active Medications Acetaminophen (Tylenol -) 650 mg PO Q6H PRN PRN Reason: PAIN Acetaminophen (Tylenol -) 650 mg PO Q5H PRN PRN Reason: FEVER OR PAIN Apixaban (Eliquis -) 5 mg PO BID@0800,2000 [facility] Last Admin: 06/15/16 07:55 Dose: 5 mg Aspirin (Ecotrin -) 81 mg PO DAILY [facility] Last Admin: 06/15/16 11:11 Dose: 81 mg Atorvastatin Calcium (Lipitor -) 10 mg PO HS [facility] Last Admin: 06/14/16 21:35 Dose: 10 mg Fenofibric Acid (Trilipix -) 45 mg PO DAILY [facility] Last Admin: 06/15/16 11:11 Dose: 45 mg Furosemide (Lasix -) 80 mg PO DAILY [facility] Last Admin: 06/15/16 11:11 Dose: 80 mg Metoprolol Succinate (Toprol Xl -) 50 mg PO BID [facility] Last Admin: 06/15/16 11:12 Dose: 50 mg Morphine Sulfate (Ms Contin -) 30 mg PO BID [facility] Last Admin: 06/15/16 11:13 Dose: 30 mg Sertraline HCl (Zoloft -) 50 mg PO DAILY [facility] Last Admin: 06/15/16 11:11 Dose: 50 mg Sevelamer Carbonate (Renvela Powder Packet -) 2.4 gm PO TIDCM [facility] Last Admin: 06/15/16 17:01 Dose: 2.4 gm Sitagliptin Phosphate (Januvia -) 25 mg PO ACBK [facility] Last Admin: 06/15/16 06:07 Dose: Not Given Sodium Thiosulfate (Sodium Thiosulfate) 25 gm IV MoWeFr@1200 [facility] Last Admin: 06/14/16 11:54 Dose: 25 gm - Objective Vital Signs: Vital Signs Temperature 97.3 F L 06/15/16 18:46 Pulse Rate 109 H 06/15/16 18:46 Respiratory Rate 18 06/15/16 18:46 Blood Pressure 121/69 06/15/16 18:46 O2 Sat by Pulse Oximetry (%) 94 L 06/15/16 10:00 Labs: CBC, BMP 06/14/16 10:15 06/14/16 10:15 INR, PTT INR 1.59 (0.82-1.09) H 05/11/16 13:20 Problem List - Problems (1) PAD (peripheral artery disease) Code(s): I73.9 - PERIPHERAL VASCULAR DISEASE, UNSPECIFIED (2) Afib Code(s): I48.91 - UNSPECIFIED ATRIAL FIBRILLATION (3) End stage renal disease Code(s): N18.6 - END STAGE RENAL DISEASE (4) Cellulitis of foot Code(s): L03.119 - CELLULITIS OF UNSPECIFIED PART OF LIMB (5) Dyspnea Code(s): R06.00 - DYSPNEA, UNSPECIFIED (6) Congestive heart failure Code(s): I50.9 - HEART FAILURE, UNSPECIFIED Qualifiers: Qualified Code(s): I50.23 - Acute on chronic systolic (congestive) heart failure (7) HTN (hypertension) Code(s): I10 - ESSENTIAL (PRIMARY) HYPERTENSION (8) Diabetes Code(s): E11.9 - TYPE 2 DIABETES MELLITUS WITHOUT COMPLICATIONS (9) Anemia Code(s): D64.9 - ANEMIA, UNSPECIFIED Qualifiers: Qualified Code(s): D64.9 - Anemia, unspecified (10) HLD (hyperlipidemia) Code(s): E78.5 - HYPERLIPIDEMIA, UNSPECIFIED
[2016-06-15] MEDS: ATORVASTATIN CA 10 MG TABLET (FP) PO SCH (21:26)
[2016-06-16] MEDS: sitaGLIPtin PHOSPHATE 25 MG TABLET (FP) PO SCH (06:25)
[2016-06-16] MEDS: SEVELAMER CARBONATE 2.4 GM POWDER PACKET PO SCH ×3 (08:00→17:14)
[2016-06-16] MEDS ORDERED: PT OWN MED DRAWER 7, Y5N ONE ×3 (08:29→22:02)
--- NOTE | 2016-06-16 08:45 | PN ---
Progress Note (short form) - Note Progress Note: WOunds examined 06/15. Left TMA intact with area of inflammation over medial aspect. No cellulitis. Right toe blisters and superficial wounds. Dry gangrene right 4th finger. Stable Continue IV antibiotics. examine 06/17
[2016-06-16] MEDS ORDERED: EPOETIN ALFA 10,000 UNIT/1 ML VIAL IVPUSH ONE (09:00)
[2016-06-16 09:49] LABS: MCH 27.5 pg (25.7-33.7); MCHC 31.1 g/dl (32.0-35.9); MEAN CELL VOLUME 88.4 fl (80-96); MEAN PLT VOLUME 8.7 fl (7.5-11.1); PLATELET COUNT 329 K/MM3 (134-434); RDW 17.6 % (11.9-15.9); WHITE BLOOD COUNT 13.9 K/mm3 (4.0-10.0)
[2016-06-16] MEDS: morphine SO4 SUSTAINED ACTING 15 MG TABLET.SA PO SCH ×2 (10:00→22:05)
[2016-06-16] MEDS ORDERED: LEVOFLOXACIN 250 MG TABLET (FP) PO ONE ×2 (10:00→14:15)
[2016-06-16 10:19] LABS: ALBUMIN 2.3 g/dl (3.4-5.0); BILIRUBIN,TOTAL 0.6 mg/dL (0.2-1.0); CALCIUM 8.2 mg/dL (8.5-10.1); COCKROFT - GAULT 19.28; CREATININE 5.3 mg/dL (0.7-1.3); PHOSPHOROUS 3.2 mg/dL (2.5-4.9); TOT PROT 6.1 g/dl (6.4-8.2)
[2016-06-16] MEDS: SODIUM THIOSULFATE 12.5 GM/50 ML VIAL IV SCH (11:40)
[2016-06-16] MEDS: METOPROLOL SUCCINATE 50 MG TAB.SR.24H (FP) PO SCH ×2 (14:06→22:05)
[2016-06-16] MEDS: FENOFIBRIC ACID 45 MG CAP PO SCH (14:06)
[2016-06-16] MEDS: FUROSEMIDE 40 MG TABLET (FP) PO SCH (14:07)
[2016-06-16] MEDS: ASPIRIN COATED 81 MG TABLET.EC PO SCH (14:07)
[2016-06-16] MEDS: APIXABAN 5 MG TABLET PO SCH ×2 (14:07→22:05)
[2016-06-16] MEDS: SERTRALINE HCL 50 MG TABLET (FP) PO SCH (14:07)
--- NOTE | 2016-06-16 16:22 | PN ---
Progress Note (short form) - Note Progress Note: Renal Follow up for ESRD Pt seen and examined at the bedside no acute complaints no sob or chest pain s/p dialysis earlier today bath changed to 3k Vital Signs Temperature 97.5 F L 06/16/16 08:00 Pulse Rate 98 H 06/16/16 08:00 Respiratory Rate 20 06/16/16 08:00 Blood Pressure 126/68 06/16/16 08:00 O2 Sat by Pulse Oximetry (%) 94 L 06/16/16 08:00 Intake & Output 06/13/16 06/14/16 06/15/16 06/16/16 23:59 23:59 23:59 23:59 Intake Total 600 715 650 420 Output Total 275 50 Balance 325 665 650 420 Weight 204 lb 3 oz 203 lb 8 oz 208 lb Gen: awake and alert CVS: RRR, No M/R Lungs: CTA, Abd: soft NT/ND Ext: left foot in dressing CBC, BMP 06/16/16 08:30 06/16/16 08:30 Current Medications Acetaminophen (Tylenol -) 650 mg PO Q6H PRN PRN Reason: PAIN Acetaminophen (Tylenol -) 650 mg PO Q5H PRN PRN Reason: FEVER OR PAIN Apixaban (Eliquis -) 5 mg PO BID@0800,1999 [facility] Last Admin: 06/16/16 14:07 Dose: 5 mg Aspirin (Ecotrin -) 81 mg PO DAILY [facility] Last Admin: 06/16/16 14:07 Dose: 81 mg Atorvastatin Calcium (Lipitor -) 10 mg PO HS [facility] Last Admin: 06/15/16 21:26 Dose: 10 mg Fenofibric Acid (Trilipix -) 45 mg PO DAILY [facility] Last Admin: 06/16/16 14:06 Dose: 45 mg Furosemide (Lasix -) 80 mg PO DAILY [facility] Last Admin: 06/16/16 14:07 Dose: 80 mg Levofloxacin (Levaquin -) 250 mg PO DAILY@0600 [facility] Metoprolol Succinate (Toprol Xl -) 50 mg PO BID [facility] Last Admin: 06/16/16 14:06 Dose: 50 mg Morphine Sulfate (Ms Contin -) 30 mg PO BID [facility] Last Admin: 06/16/16 10:00 Dose: Not Given Sertraline HCl (Zoloft -) 50 mg PO DAILY [facility] Last Admin: 06/16/16 14:07 Dose: 50 mg Sevelamer Carbonate (Renvela Powder Packet -) 2.4 gm PO TIDCM [facility] Last Admin: 06/16/16 14:08 Dose: 2.4 gm Sitagliptin Phosphate (Januvia -) 25 mg PO ACBK [facility] Last Admin: 06/16/16 06:25 Dose: Not Given Sodium Thiosulfate (Sodium Thiosulfate) 25 gm IV MoWeFr@1200 [facility] Last Admin: 06/16/16 11:40 Dose: 25 gm A/P 60 year old gentleman with PMhx of ESRD (recently started on dialysis), CAD s/p CABG, DM Type 2, Depression, CHF who with LE weakness s/p recent fall and wound on right foot. #PVD/Cyanosis [facility] wound care Physical therapy Vascular Follow up Abx for LE wound as per vascular #ESRD on HD with fluid overload tolerated HD well catheter with good function #Caliphyalxis Continue sodium thiosulfate IVPB with dialysis 3x weekly with HD continue phos binders avoid Vit D analogs and ca supplementation #Anxiety Xanex PRN #Anemia s/p transfusion epogen with HD Won Weiss DO
[2016-06-16] MEDS ORDERED: VANCOMYCIN 1 GRAM (PRE-DOCKED) 250 ML IVPB ONE (16:25)
[2016-06-16] MEDS: ATORVASTATIN CA 10 MG TABLET (FP) PO SCH (22:05)
--- NOTE | 2016-06-16 22:38 | PN ---
Progress Note, Physician - Current Medication List Current Medications: Active Medications Acetaminophen (Tylenol -) 650 mg PO Q6H PRN PRN Reason: PAIN Acetaminophen (Tylenol -) 650 mg PO Q5H PRN PRN Reason: FEVER OR PAIN Apixaban (Eliquis -) 5 mg PO BID@0800,1999 [facility] Last Admin: 06/16/16 22:05 Dose: 5 mg Aspirin (Ecotrin -) 81 mg PO DAILY [facility] Last Admin: 06/16/16 14:07 Dose: 81 mg Atorvastatin Calcium (Lipitor -) 10 mg PO HS [facility] Last Admin: 06/16/16 22:05 Dose: 10 mg Fenofibric Acid (Trilipix -) 45 mg PO DAILY [facility] Last Admin: 06/16/16 14:06 Dose: 45 mg Furosemide (Lasix -) 80 mg PO DAILY [facility] Last Admin: 06/16/16 14:07 Dose: 80 mg Levofloxacin (Levaquin -) 250 mg PO DAILY@0600 [facility] Metoprolol Succinate (Toprol Xl -) 50 mg PO BID [facility] Last Admin: 06/16/16 22:05 Dose: 50 mg Morphine Sulfate (Ms Contin -) 30 mg PO BID [facility] Last Admin: 06/16/16 22:05 Dose: 30 mg Sertraline HCl (Zoloft -) 50 mg PO DAILY [facility] Last Admin: 06/16/16 14:07 Dose: 50 mg Sevelamer Carbonate (Renvela Powder Packet -) 2.4 gm PO TIDCM [facility] Last Admin: 06/16/16 17:14 Dose: 2.4 gm Sitagliptin Phosphate (Januvia -) 25 mg PO ACBK [facility] Last Admin: 06/16/16 06:25 Dose: Not Given Sodium Thiosulfate (Sodium Thiosulfate) 25 gm IV MoWeFr@1200 [facility] Last Admin: 06/16/16 11:40 Dose: 25 gm - Objective Vital Signs: Vital Signs Temperature 97.5 F L 06/16/16 08:00 Pulse Rate 117 H 06/16/16 21:59 Respiratory Rate 20 06/16/16 08:00 Blood Pressure 112/65 06/16/16 21:59 O2 Sat by Pulse Oximetry (%) 94 L 06/16/16 08:00 Labs: CBC, BMP 06/16/16 08:30 06/16/16 08:30 INR, PTT INR 1.59 (0.82-1.09) H 05/11/16 13:20 Problem List - Problems (1) PAD (peripheral artery disease) Code(s): I73.9 - PERIPHERAL VASCULAR DISEASE, UNSPECIFIED (2) Afib Code(s): I48.91 - UNSPECIFIED ATRIAL FIBRILLATION (3) End stage renal disease Code(s): N18.6 - END STAGE RENAL DISEASE (4) Cellulitis of foot Code(s): L03.119 - CELLULITIS OF UNSPECIFIED PART OF LIMB (5) Dyspnea Code(s): R06.00 - DYSPNEA, UNSPECIFIED (6) Congestive heart failure Code(s): I50.9 - HEART FAILURE, UNSPECIFIED Qualifiers: Qualified Code(s): I50.23 - Acute on chronic systolic (congestive) heart failure (7) HTN (hypertension) Code(s): I10 - ESSENTIAL (PRIMARY) HYPERTENSION (8) Diabetes Code(s): E11.9 - TYPE 2 DIABETES MELLITUS WITHOUT COMPLICATIONS (9) Anemia Code(s): D64.9 - ANEMIA, UNSPECIFIED Qualifiers: Qualified Code(s): D64.9 - Anemia, unspecified (10) HLD (hyperlipidemia) Code(s): E78.5 - HYPERLIPIDEMIA, UNSPECIFIED
[2016-06-17] MEDS ORDERED: KETOROLAC TROMETHAMINE 30 MG/1 ML VIAL IM ONE (00:30)
[2016-06-17] MEDS: ACETAMINOPHEN 325 MG TABLET (FP) PO PRN ×2 (04:25→18:26)
[2016-06-17] MEDS: LEVOFLOXACIN 250 MG TABLET (FP) PO SCH (06:38)
[2016-06-17] MEDS: sitaGLIPtin PHOSPHATE 25 MG TABLET (FP) PO SCH (06:48)
[2016-06-17] MEDS ORDERED: PT OWN MED DRAWER 7, Y5N ONE ×4 (08:12→21:22)
[2016-06-17] MEDS: SEVELAMER CARBONATE 2.4 GM POWDER PACKET PO SCH ×4 (08:15→17:23)
[2016-06-17] MEDS: APIXABAN 5 MG TABLET PO SCH ×2 (08:42→21:28)
[2016-06-17] MEDS: FENOFIBRIC ACID 45 MG CAP PO SCH (09:34)
[2016-06-17] MEDS: morphine SO4 SUSTAINED ACTING 15 MG TABLET.SA PO SCH ×2 (09:34→21:30)
[2016-06-17] MEDS: FUROSEMIDE 40 MG TABLET (FP) PO SCH (09:35)
[2016-06-17] MEDS: SERTRALINE HCL 50 MG TABLET (FP) PO SCH (09:35)
[2016-06-17] MEDS: METOPROLOL SUCCINATE 50 MG TAB.SR.24H (FP) PO SCH ×2 (09:35→21:28)
[2016-06-17] MEDS: ASPIRIN COATED 81 MG TABLET.EC PO SCH (09:35)
--- NOTE | 2016-06-17 10:49 | PN ---
Progress Note, Physician Chief Complaint: The patient seen in his bed. Has pain at the ulcerated and gangrenous sites. Has dry gangrene of the right finger. Also lesions of calciphylaxis on the LE. Seems depressed. Not keen on going to the [facility] in [facility]. The foot wounds have dressing on them. History of Present Illness: Patient with ESRD, CHF, PCVD and Calciphylaxis. OInfected foot wound. - Current Medication List Current Medications: Active Medications Acetaminophen (Tylenol -) 650 mg PO Q6H PRN PRN Reason: PAIN Last Admin: 06/17/16 04:25 Dose: 650 mg Acetaminophen (Tylenol -) 650 mg PO Q5H PRN PRN Reason: FEVER OR PAIN Apixaban (Eliquis -) 5 mg PO BID@0800,1999 [facility] Last Admin: 06/17/16 08:42 Dose: 5 mg Aspirin (Ecotrin -) 81 mg PO DAILY [facility] Last Admin: 06/17/16 09:35 Dose: 81 mg Atorvastatin Calcium (Lipitor -) 10 mg PO HS [facility] Last Admin: 06/16/16 22:05 Dose: 10 mg Fenofibric Acid (Trilipix -) 45 mg PO DAILY [facility] Last Admin: 06/17/16 09:34 Dose: 45 mg Furosemide (Lasix -) 80 mg PO DAILY [facility] Last Admin: 06/17/16 09:35 Dose: 80 mg Vancomycin HCl 1,000 mg/ (Dextrose) 250 mls @ 250 mls/hr IVPB ONCE ONE PRN Reason: Protocol Stop: 06/17/16 11:39 Levofloxacin (Levaquin -) 250 mg PO DAILY@0600 [facility] Last Admin: 06/17/16 06:38 Dose: 250 mg Metoprolol Succinate (Toprol Xl -) 50 mg PO BID [facility] Last Admin: 06/17/16 09:35 Dose: 50 mg Morphine Sulfate (Ms Contin -) 30 mg PO BID [facility] Last Admin: 06/17/16 09:34 Dose: 30 mg Sertraline HCl (Zoloft -) 50 mg PO DAILY [facility] Last Admin: 06/17/16 09:35 Dose: 50 mg Sevelamer Carbonate (Renvela Powder Packet -) 2.4 gm PO TIDCM [facility] Last Admin: 06/17/16 08:48 Dose: 2.4 gm Sitagliptin Phosphate (Januvia -) 25 mg PO ACBK [facility] Last Admin: 06/17/16 06:48 Dose: Not Given Sodium Thiosulfate (Sodium Thiosulfate) 25 gm IV MoWeFr@1200 [facility] Last Admin: 06/16/16 11:40 Dose: 25 gm - Objective Vital Signs: Vital Signs Temperature 97.6 F 06/17/16 06:00 Pulse Rate 98 H 06/17/16 06:00 Respiratory Rate 20 06/17/16 06:00 Blood Pressure 139/75 06/17/16 06:00 O2 Sat by Pulse Oximetry (%) 95 06/16/16 22:00 Constitutional: Yes: Calm, Anxious, Pallor Eyes: Yes: WNL Neck: Yes: Supple Cardiovascular: Yes: S1, S2 Respiratory: Yes: Regular, CTA Bilaterally Gastrointestinal: Yes: Normal Bowel Sounds Musculoskeletal: Yes: Muscle Pain Extremities: Yes: Amputation (gangrenous finger, ischemic feet) Psychiatric: Yes: Alert Labs: CBC, BMP 06/16/16 08:30 06/16/16 08:30 INR, PTT INR 1.59 (0.82-1.09) H 05/11/16 13:20 Problem List - Problems (1) Afib Code(s): I48.91 - UNSPECIFIED ATRIAL FIBRILLATION (2) CHF exacerbation Code(s): I50.9 - HEART FAILURE, UNSPECIFIED Qualifiers: Qualified Code(s): I50.9 - Heart failure, unspecified (3) HLD (hyperlipidemia) Code(s): E78.5 - HYPERLIPIDEMIA, UNSPECIFIED (4) Microangiopathy, 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 (5) Anemia Code(s): D64.9 - ANEMIA, UNSPECIFIED Qualifiers: Qualified Code(s): D64.9 - Anemia, unspecified (6) Cellulitis of foot Code(s): L03.119 - CELLULITIS OF UNSPECIFIED PART OF LIMB (7) HTN (hypertension) Code(s): I10 - ESSENTIAL (PRIMARY) HYPERTENSION (8) Renal failure Code(s): N19 - UNSPECIFIED KIDNEY FAILURE (9) End stage chronic kidney disease Code(s): N18.6 - END STAGE RENAL DISEASE Z99.2 - DEPENDENCE ON RENAL DIALYSIS Assessment/Plan Patient with ESRD, with Peripheral vascular disease, LE ulceration and infected foot wound. On Levaquin for the foot infection. Discussed with Dr. Young. Will give another dialysis today, and administer 1 gm of Vancomycin at the end of dialysis. Orders written and reviewed with the RN. Thanks you. Shayna Enriquez MD
--- NOTE | 2016-06-17 11:02 | PN ---
Progress Note (short form) - Note Progress Note: C/o pain in both feet overnight. Afeb Left TMA wound with small amount of drainage medially, flap viable except for that section. Continue Abx for now. Right toes improved, loose epithelium debrided.
[2016-06-17] MEDS ORDERED: VANCOMYCIN 1 GRAM (PRE-DOCKED) 250 ML IVPB ONE (11:15)
[2016-06-17 11:52] LABS: BASOPHIL 0.9 % (0-2.0); MCH 27.4 pg (25.7-33.7); MCHC 31.5 g/dl (32.0-35.9); MEAN CELL VOLUME 87.1 fl (80-96); MEAN PLT VOLUME 8.2 fl (7.5-11.1); NEUTROPHILS 79.2 % (42.8-82.8); PLATELET COUNT 322 K/MM3 (134-434); RDW 16.7 % (11.9-15.9); WHITE BLOOD COUNT 12.9 K/mm3 (4.0-10.0)
[2016-06-17 12:35] LABS: CALCIUM 8.3 mg/dL (8.5-10.1); COCKROFT - GAULT 28.09; CREATININE 3.6 mg/dL (0.7-1.3); MAGNESIUM 1.4 mg/dL (1.8-2.4)
[2016-06-17 12:40] LABS: PHOSPHOROUS 1.1 mg/dL (2.5-4.9)
--- NOTE | 2016-06-17 15:20 | PN ---
Progress Note, Physician - Current Medication List Current Medications: Active Medications Acetaminophen (Tylenol -) 650 mg PO Q6H PRN PRN Reason: PAIN Last Admin: 06/17/16 04:25 Dose: 650 mg Acetaminophen (Tylenol -) 650 mg PO Q5H PRN PRN Reason: FEVER OR PAIN Apixaban (Eliquis -) 5 mg PO BID@0800,2000 [facility] Last Admin: 06/17/16 08:42 Dose: 5 mg Aspirin (Ecotrin -) 81 mg PO DAILY [facility] Last Admin: 06/17/16 09:35 Dose: 81 mg Atorvastatin Calcium (Lipitor -) 10 mg PO HS [facility] Last Admin: 06/16/16 22:05 Dose: 10 mg Fenofibric Acid (Trilipix -) 45 mg PO DAILY [facility] Last Admin: 06/17/16 09:34 Dose: 45 mg Furosemide (Lasix -) 80 mg PO DAILY [facility] Last Admin: 06/17/16 09:35 Dose: 80 mg Levofloxacin (Levaquin -) 250 mg PO DAILY@0600 [facility] Last Admin: 06/17/16 06:38 Dose: 250 mg Metoprolol Succinate (Toprol Xl -) 50 mg PO BID [facility] Last Admin: 06/17/16 09:35 Dose: 50 mg Morphine Sulfate (Ms Contin -) 30 mg PO BID [facility] Last Admin: 06/17/16 09:34 Dose: 30 mg Sertraline HCl (Zoloft -) 50 mg PO DAILY [facility] Last Admin: 06/17/16 09:35 Dose: 50 mg Sevelamer Carbonate (Renvela Powder Packet -) 2.4 gm PO TIDCM [facility] Last Admin: 06/17/16 13:32 Dose: Not Given Sitagliptin Phosphate (Januvia -) 25 mg PO ACBK [facility] Last Admin: 06/17/16 06:48 Dose: Not Given Sodium Thiosulfate (Sodium Thiosulfate) 25 gm IV MoWeFr@1200 [facility] Last Admin: 06/16/16 11:40 Dose: 25 gm - Objective Vital Signs: Vital Signs Temperature 97.5 F L 06/17/16 14:46 Pulse Rate 94 H 06/17/16 14:46 Respiratory Rate 20 06/17/16 14:46 Blood Pressure 123/60 06/17/16 14:46 O2 Sat by Pulse Oximetry (%) 96 06/17/16 10:00 Labs: CBC, BMP 06/17/16 11:49 06/17/16 11:49 INR, PTT INR 1.59 (0.82-1.09) H 05/11/16 13:20 Problem List - Problems (1) PAD (peripheral artery disease) Code(s): I73.9 - PERIPHERAL VASCULAR DISEASE, UNSPECIFIED (2) Afib Code(s): I48.91 - UNSPECIFIED ATRIAL FIBRILLATION (3) End stage renal disease Code(s): N18.6 - END STAGE RENAL DISEASE (4) Cellulitis of foot Code(s): L03.119 - CELLULITIS OF UNSPECIFIED PART OF LIMB (5) Dyspnea Code(s): R06.00 - DYSPNEA, UNSPECIFIED (6) Congestive heart failure Code(s): I50.9 - HEART FAILURE, UNSPECIFIED Qualifiers: Qualified Code(s): I50.23 - Acute on chronic systolic (congestive) heart failure (7) HTN (hypertension) Code(s): I10 - ESSENTIAL (PRIMARY) HYPERTENSION (8) Diabetes Code(s): E11.9 - TYPE 2 DIABETES MELLITUS WITHOUT COMPLICATIONS (9) Anemia Code(s): D64.9 - ANEMIA, UNSPECIFIED Qualifiers: Qualified Code(s): D64.9 - Anemia, unspecified (10) HLD (hyperlipidemia) Code(s): E78.5 - HYPERLIPIDEMIA, UNSPECIFIED
[2016-06-17] MEDS ORDERED: MAGNESIUM SULF 50% (8.12 MEQ/2 ML-1 GM VIAL) IVPB ONE (15:45)
[2016-06-17] MEDS ORDERED: POTASSIUM CHLORIDE TABS 20 MEQ TABLET.ER (FP) PO ONE (15:45)
[2016-06-17] MEDS ORDERED: MAGNESIUM OXIDE 400 MG TABLET (FP) PO ONE (16:30)
[2016-06-17] MEDS: ATORVASTATIN CA 10 MG TABLET (FP) PO SCH (21:28)
[2016-06-18] MEDS: LEVOFLOXACIN 250 MG TABLET (FP) PO SCH (06:26)
[2016-06-18] MEDS: sitaGLIPtin PHOSPHATE 25 MG TABLET (FP) PO SCH (06:28)
[2016-06-18] MEDS: SEVELAMER CARBONATE 2.4 GM POWDER PACKET PO SCH ×3 (08:01→13:16)
[2016-06-18] MEDS ORDERED: PT OWN MED DRAWER 7, Y5N ONE ×4 (08:01→21:16)
[2016-06-18] MEDS: APIXABAN 5 MG TABLET PO SCH ×2 (08:02→21:23)
[2016-06-18 09:00] LABS: ALBUMIN 2.6 g/dl (3.4-5.0); CALCIUM 8.8 mg/dL (8.5-10.1)
[2016-06-18 09:03] LABS: BILIRUBIN,TOTAL 0.7 mg/dL (0.2-1.0); COCKROFT - GAULT 26.94; CREATININE 3.8 mg/dL (0.7-1.3); TOT PROT 7.1 g/dl (6.4-8.2)
--- NOTE | 2016-06-18 10:05 | PN ---
Progress Note (short form) - Note Progress Note: is angry that he was awoken at 430 this am for vitals refusing exam will return tomorrow and examine patient if he permits
[2016-06-18] MEDS: FUROSEMIDE 40 MG TABLET (FP) PO SCH (10:27)
[2016-06-18] MEDS: ASPIRIN COATED 81 MG TABLET.EC PO SCH (10:27)
[2016-06-18] MEDS: SERTRALINE HCL 50 MG TABLET (FP) PO SCH (10:27)
[2016-06-18] MEDS: FENOFIBRIC ACID 45 MG CAP PO SCH (10:27)
[2016-06-18] MEDS: morphine SO4 SUSTAINED ACTING 15 MG TABLET.SA PO SCH ×2 (10:27→21:23)
[2016-06-18] MEDS: METOPROLOL SUCCINATE 50 MG TAB.SR.24H (FP) PO SCH ×2 (10:28→21:23)
--- NOTE | 2016-06-18 17:05 | PN ---
Progress Note, Physician Chief Complaint: The patient seen in his bed. Had slid off his chair and went on the floor. Did not sustain any injury. Refused any Xrays or evals. History of Present Illness: Patient with ESRD, CHF, PCVD and Calciphylaxis. Infected foot wound. - Current Medication List Current Medications: Active Medications Acetaminophen (Tylenol -) 650 mg PO Q6H PRN PRN Reason: PAIN Last Admin: 06/17/16 18:26 Dose: 650 mg Acetaminophen (Tylenol -) 650 mg PO Q5H PRN PRN Reason: FEVER OR PAIN Apixaban (Eliquis -) 5 mg PO BID@0800,2000 [facility] Last Admin: 06/18/16 08:02 Dose: 5 mg Aspirin (Ecotrin -) 81 mg PO DAILY [facility] Last Admin: 06/18/16 10:27 Dose: 81 mg Atorvastatin Calcium (Lipitor -) 10 mg PO HS [facility] Last Admin: 06/17/16 21:28 Dose: 10 mg Fenofibric Acid (Trilipix -) 45 mg PO DAILY [facility] Last Admin: 06/18/16 10:27 Dose: 45 mg Furosemide (Lasix -) 80 mg PO DAILY [facility] Last Admin: 06/18/16 10:27 Dose: 80 mg Levofloxacin (Levaquin -) 250 mg PO DAILY@0600 [facility] Last Admin: 06/18/16 06:26 Dose: 250 mg Metoprolol Succinate (Toprol Xl -) 50 mg PO BID [facility] Last Admin: 06/18/16 10:28 Dose: 50 mg Morphine Sulfate (Ms Contin -) 30 mg PO BID [facility] Last Admin: 06/18/16 10:27 Dose: 30 mg Sertraline HCl (Zoloft -) 50 mg PO DAILY [facility] Last Admin: 06/18/16 10:27 Dose: 50 mg Sevelamer Carbonate (Renvela Powder Packet -) 2.4 gm PO TIDCM [facility] Last Admin: 06/18/16 13:16 Dose: 2.4 gm Sitagliptin Phosphate (Januvia -) 25 mg PO ACBK [facility] Last Admin: 06/18/16 06:28 Dose: Not Given Sodium Thiosulfate (Sodium Thiosulfate) 25 gm IV MoWeFr@1200 [facility] Last Admin: 06/16/16 11:40 Dose: 25 gm - Objective Vital Signs: Vital Signs Temperature 97.7 F 06/18/16 10:00 Pulse Rate 99 H 06/18/16 13:34 Respiratory Rate 17 06/18/16 13:34 Blood Pressure 110/67 06/18/16 10:00 O2 Sat by Pulse Oximetry (%) 96 06/18/16 10:00 Constitutional: Yes: No Distress, Calm Eyes: Yes: Conjunctiva Clear HENT: Yes: Atraumatic Neck: Yes: Supple Cardiovascular: Yes: Regular Rate and Rhythm Respiratory: Yes: Regular, CTA Bilaterally, Diminished Gastrointestinal: Yes: Normal Bowel Sounds Extremities: Yes: Erythema, Other (Peripheral ischemic arterial disease. Ulceration. Calciphylaxis. Dressing in place over the leg ulcers.) Wound/Incision: Yes: Dressing Dry and Intact Neurological: Yes: Alert, Oriented ...Motor Strength: WNL Psychiatric: Yes: Alert, Oriented Labs: CBC, BMP 06/17/16 11:49 06/18/16 06:30 INR, PTT INR 1.59 (0.82-1.09) H 05/11/16 13:20 Problem List - Problems (1) Afib Code(s): I48.91 - UNSPECIFIED ATRIAL FIBRILLATION (2) CHF exacerbation Code(s): I50.9 - HEART FAILURE, UNSPECIFIED Qualifiers: Qualified Code(s): I50.9 - Heart failure, unspecified (3) HLD (hyperlipidemia) Code(s): E78.5 - HYPERLIPIDEMIA, UNSPECIFIED (4) Microangiopathy, 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 (5) Anemia Code(s): D64.9 - ANEMIA, UNSPECIFIED Qualifiers: Qualified Code(s): D64.9 - Anemia, unspecified (6) Cellulitis of foot Code(s): L03.119 - CELLULITIS OF UNSPECIFIED PART OF LIMB (7) HTN (hypertension) Code(s): I10 - ESSENTIAL (PRIMARY) HYPERTENSION (8) Renal failure Code(s): N19 - UNSPECIFIED KIDNEY FAILURE (9) End stage chronic kidney disease Code(s): N18.6 - END STAGE RENAL DISEASE Z99.2 - DEPENDENCE ON RENAL DIALYSIS Assessment/Plan Patient with ESRD, with Peripheral vascular disease, LE ulceration and infected foot wound. On Levaquin for the foot infection. On Sodium Thiosulfate for Calciphylaxis Next HD in AM. the patient says that he wants to go only to [facility]. Thanks you. Shayna Enriquez MD
--- NOTE | 2016-06-18 17:14 | HOSP ---
Subjective - Review of Symptoms Subjective: Notified by RN that pt fell as per pt he was ambulating back from the bathroom when he felt weak due to pain in his R leg and went onto his knees one by one. denies any symptoms prior to the event, dizzyness, LOC, palpitations, SOB, CP currently is asymptomatic General NAD Extremities- 2+pitting edema large necrotic ulcer on R medial thigh. no joint effusions B/L passive and active full ROM B/L LE small ecchymosis and abrasion to L knee which pt states he had prior to fall Plan: no need for XR at this time. informed pt that he should not ambulate on his own and should request assistance. Physical Examination Vital Signs: Vital Signs Temperature 97.9 F 06/18/16 17:07 Pulse Rate 103 H 06/18/16 17:07 Respiratory Rate 20 06/18/16 17:07 Blood Pressure 122/61 06/18/16 17:07 O2 Sat by Pulse Oximetry (%) 96 06/18/16 10:00 Labs: CBC, BMP 06/17/16 11:49 06/18/16 06:30
[2016-06-18] MEDS: ACETAMINOPHEN 325 MG TABLET (FP) PO PRN (18:52)
[2016-06-18] MEDS: ATORVASTATIN CA 10 MG TABLET (FP) PO SCH (21:23)
--- NOTE | 2016-06-18 22:42 | PN ---
Progress Note, Physician - Current Medication List Current Medications: Active Medications Acetaminophen (Tylenol -) 650 mg PO Q6H PRN PRN Reason: PAIN Last Admin: 06/18/16 18:52 Dose: 650 mg Acetaminophen (Tylenol -) 650 mg PO Q5H PRN PRN Reason: FEVER OR PAIN Apixaban (Eliquis -) 5 mg PO BID@0800,2000 [facility] Last Admin: 06/18/16 21:23 Dose: 5 mg Aspirin (Ecotrin -) 81 mg PO DAILY [facility] Last Admin: 06/18/16 10:27 Dose: 81 mg Atorvastatin Calcium (Lipitor -) 10 mg PO HS [facility] Last Admin: 06/18/16 21:23 Dose: 10 mg Epoetin Campos (Procrit -) 10,000 unit IVPUSH ONCE ONE Stop: 06/19/16 17:12 Fenofibric Acid (Trilipix -) 45 mg PO DAILY [facility] Last Admin: 06/18/16 10:27 Dose: 45 mg Furosemide (Lasix -) 80 mg PO DAILY [facility] Last Admin: 06/18/16 10:27 Dose: 80 mg Levofloxacin (Levaquin -) 250 mg PO DAILY@0600 [facility] Last Admin: 06/18/16 06:26 Dose: 250 mg Metoprolol Succinate (Toprol Xl -) 50 mg PO BID [facility] Last Admin: 06/18/16 21:23 Dose: 50 mg Morphine Sulfate (Ms Contin -) 30 mg PO BID [facility] Last Admin: 06/18/16 21:23 Dose: 30 mg Sertraline HCl (Zoloft -) 50 mg PO DAILY [facility] Last Admin: 06/18/16 10:27 Dose: 50 mg Sitagliptin Phosphate (Januvia -) 25 mg PO ACBK [facility] Last Admin: 06/18/16 06:28 Dose: Not Given Sodium Thiosulfate (Sodium Thiosulfate) 25 gm IV MoWeFr@1200 [facility] Last Admin: 06/16/16 11:40 Dose: 25 gm - Objective Vital Signs: Vital Signs Temperature 97.7 F 06/18/16 18:56 Pulse Rate 101 H 06/18/16 18:56 Respiratory Rate 21 06/18/16 18:56 Blood Pressure 115/56 06/18/16 18:56 O2 Sat by Pulse Oximetry (%) 96 06/18/16 10:00 Constitutional: Yes: Well Nourished Neck: Yes: Supple Cardiovascular: Yes: Pulse Irregular Respiratory: Yes: WNL, Regular, CTA Bilaterally Gastrointestinal: Yes: WNL, Normal Bowel Sounds, Soft Labs: CBC, BMP 06/17/16 11:49 06/18/16 06:30 INR, PTT INR 1.59 (0.82-1.09) H 05/11/16 13:20 Problem List - Problems (1) PAD (peripheral artery disease) Assessment/Plan: S/P partial amputation Lt foot Long d/w pt who is insisting he only wnats to go to [facility] for STR However I explained to pt that h he will be dc'ed in am to STR wc facility is to be determined in am Code(s): I73.9 - PERIPHERAL VASCULAR DISEASE, UNSPECIFIED (2) Afib Assessment/Plan: Heart rate controlled Cont metoprolol Cont eliquis Code(s): I48.91 - UNSPECIFIED ATRIAL FIBRILLATION (3) End stage renal disease Assessment/Plan: Dialysis as per renal Monitor electrolytes Cont renvela Code(s): N18.6 - END STAGE RENAL DISEASE (4) Cellulitis of foot Assessment/Plan: Pt had angioplasty of popitial tibial Chronic lt foot ulcer S/P B/L stenting of common iliacs Pt is now off antibxs Code(s): L03.119 - CELLULITIS OF UNSPECIFIED PART OF LIMB (5) Dyspnea Code(s): R06.00 - DYSPNEA, UNSPECIFIED (6) Congestive heart failure Code(s): I50.9 - HEART FAILURE, UNSPECIFIED Qualifiers: Qualified Code(s): I50.23 - Acute on chronic systolic (congestive) heart failure (7) HTN (hypertension) Code(s): I10 - ESSENTIAL (PRIMARY) HYPERTENSION (8) Diabetes Code(s): E11.9 - TYPE 2 DIABETES MELLITUS WITHOUT COMPLICATIONS (9) Anemia Code(s): D64.9 - ANEMIA, UNSPECIFIED Qualifiers: Qualified Code(s): D64.9 - Anemia, unspecified (10) HLD (hyperlipidemia) Code(s): E78.5 - HYPERLIPIDEMIA, UNSPECIFIED
[2016-06-19] MEDS: ACETAMINOPHEN 325 MG TABLET (FP) PO PRN (03:24)
[2016-06-19] MEDS: LEVOFLOXACIN 250 MG TABLET (FP) PO SCH (06:49)
[2016-06-19] MEDS: sitaGLIPtin PHOSPHATE 25 MG TABLET (FP) PO SCH (06:50)
--- NOTE | 2016-06-19 11:30 | PN ---
Progress Note, Physician Chief Complaint: chf, afib History of Present Illness: orthopnea has returned, ? since when--none severe (lying flat comfortably during HD for exam) legs swelling of late no cp, palpit - Current Medication List Current Medications: Active Medications Acetaminophen (Tylenol -) 650 mg PO Q6H PRN PRN Reason: PAIN Last Admin: 06/19/16 03:24 Dose: 650 mg Acetaminophen (Tylenol -) 650 mg PO Q5H PRN PRN Reason: FEVER OR PAIN Apixaban (Eliquis -) 5 mg PO BID@0800,2000 [facility] Last Admin: 06/18/16 21:23 Dose: 5 mg Aspirin (Ecotrin -) 81 mg PO DAILY [facility] Last Admin: 06/18/16 10:27 Dose: 81 mg Atorvastatin Calcium (Lipitor -) 10 mg PO HS [facility] Last Admin: 06/18/16 21:23 Dose: 10 mg Epoetin Campos (Procrit -) 10,000 unit IVPUSH ONCE ONE Stop: 06/19/16 12:01 Fenofibric Acid (Trilipix -) 45 mg PO DAILY [facility] Last Admin: 06/18/16 10:27 Dose: 45 mg Furosemide (Lasix -) 80 mg PO DAILY [facility] Last Admin: 06/18/16 10:27 Dose: 80 mg Levofloxacin (Levaquin -) 250 mg PO DAILY@0600 [facility] Last Admin: 06/19/16 06:49 Dose: 250 mg Metoprolol Succinate (Toprol Xl -) 50 mg PO BID [facility] Last Admin: 06/18/16 21:23 Dose: 50 mg Morphine Sulfate (Ms Contin -) 30 mg PO BID [facility] Last Admin: 06/18/16 21:23 Dose: 30 mg Sertraline HCl (Zoloft -) 50 mg PO DAILY [facility] Last Admin: 06/18/16 10:27 Dose: 50 mg Sitagliptin Phosphate (Januvia -) 25 mg PO ACBK [facility] Last Admin: 06/19/16 06:50 Dose: Not Given Sodium Thiosulfate (Sodium Thiosulfate) 25 gm IV MoWeFr@1200 [facility] Last Admin: 06/16/16 11:40 Dose: 25 gm - Objective Vital Signs: Vital Signs Temperature 97.6 F 06/19/16 05:09 Pulse Rate 102 H 06/19/16 05:09 Respiratory Rate 20 06/19/16 05:09 Blood Pressure 126/70 06/19/16 05:09 O2 Sat by Pulse Oximetry (%) 96 06/18/16 21:00 Constitutional: Yes: Well Nourished, No Distress, Calm Cardiovascular: Yes: Regular Rate and Rhythm, S1, S2. No: Gallop, Murmur Respiratory: Yes: Regular, CTA Bilaterally (anteriorly (during HD)). No: Accessory Muscle Use, Rales, Wheezes Extremities: No: Cold Edema: Yes (2+ pretib) Neurological: Yes: Alert, Oriented Psychiatric: No: Agitated Labs: CBC, BMP 06/17/16 11:49 INR, PTT INR 1.59 (0.82-1.09) H 05/11/16 13:20 Assessment/Plan echo 09/2015: mod lve, mild-mod dec lvef, global HK, nl rv, mod-sev mr, sev tr, marixa, nl rvsp echo 03/2016: mild lve, mod dec lvef, ant HK, nl rv size, marixa, mild mr, mod tr, rvsp 40-50 a/p: 60 m hx htn, hld, dm, cabg (04/2006), ESRD, afib/flutter, syst chf, esrd on HD, here with infected foot wound chronic syst chf: -significant sob with little activity and orthopnea here, despite clear cxr and no jvd/edema--likely was high filling pressures in retrospect -freq HD/UF (more than TIW) here with overall wt trend from 213 down to low of 198 -sob and orthopnea improved at 198-200 lbs -bedscale wt has trended up the past 2 wks from 198 to 205-210, today's 215; -legs swollen, + orthopnea again (though mild and he tolerated these sx's for very long time prior to this admit) -may not tolerate being at dry wt as he has had issues with low bp's during HD and LH sx's following HD -based on wt trend, he is likely hiding volume-up again now--d/w'd dr mcghee-- will try to remove more UF if bp tolerates -holding diovan 80 qd, hydralazine 25 bid, and isordil 10 qd for low bps with presyncope at home--reassess these later once volume status optimized and bp trend monitored -need accurate assessment of AF rate control (r/o tachy-CMP) and burden ( paroxysmal) as outpt afib/flutter: -initially not well controlled--HRs to 140s at times. (cannot use dilt with chronic syst chf, low dose digoxin hi risk for toxicity with HD) -? if tachy contributing to LV dysfunction and/or hi intracardiac filling pressures -incr'd toprol to 200 bid with good HR control thereafter -outpt monitoring of HR control, as above -eliquis dose incr'd back to 5 bid here on 06/08--tolerating without presyncope ( see prior note) ESRD -cont hd per renal -fluid removal as disc'd above htn: -bp's on low side here at times--held diovan, nitrate, hydralazine -LH/presyncope episodes at home -bp meds as disc'd above hld: -cont home statin cad s/p cabg: -ce's neg x2, EKG without ischemic changes here, no suspected angina sx's -recent echo w/o sig change from prior -cont statin, bb, ac le cellulitis, possible gangrene, PAD: - -plans per vascular surgery, ID -back on eliquis PAD (LEs), + calciphylaxis, lower extremity wound treated by ID -s/p b/l common iliac stenting 05/26 -s/p L TMA here - per vascular (dr coats following) OK FOR D/C FROM [facility] P[facility].
[2016-06-19 11:42] LABS: ALBUMIN 2.3 g/dl (3.4-5.0); BILIRUBIN,TOTAL 0.5 mg/dL (0.2-1.0); CALCIUM 8.4 mg/dL (8.5-10.1); COCKROFT - GAULT 21.57; CREATININE 4.9 mg/dL (0.7-1.3); PHOSPHOROUS 2.7 mg/dL (2.5-4.9); TOT PROT 6.2 g/dl (6.4-8.2)
[2016-06-19 11:52] LABS: MCH 26.3 pg (25.7-33.7); MCHC 30.1 g/dl (32.0-35.9); MEAN CELL VOLUME 87.4 fl (80-96); MEAN PLT VOLUME 8.4 fl (7.5-11.1); PLATELET COUNT 355 K/MM3 (134-434); RDW 17.2 % (11.9-15.9); WHITE BLOOD COUNT 12.9 K/mm3 (4.0-10.0)
--- NOTE | 2016-06-19 11:52 | PN ---
Progress Note (short form) - Note Progress Note: Renal Follow up for ESRD Pt seen and examined during dialysis BP stable Goal UF is 3L no sob or chest pain Has weeping edema in the LE Vital Signs Temperature 97.6 F 06/19/16 05:09 Pulse Rate 102 H 06/19/16 05:09 Respiratory Rate 20 06/19/16 05:09 Blood Pressure 126/70 06/19/16 05:09 O2 Sat by Pulse Oximetry (%) 96 06/18/16 21:00 Intake & Output 06/16/16 06/17/16 06/18/16 06/19/16 23:59 23:59 23:59 23:59 Intake Total 420 250 700 400 Output Total 0 100 Balance 420 250 600 400 Weight 208 lb 205 lb 12.8 oz 208 lb 6.4 oz 215 lb 2 oz Gen: awake and alert CVS: RRR, No M/R Lungs: CTA, Abd: soft NT/ND Ext: left foot in dressing CBC, BMP 06/19/16 10:30 Laboratory Tests 06/19/16 10:30 Calcium 8.4 L Phosphorus 2.7 D Current Medications Acetaminophen (Tylenol -) 650 mg PO Q6H PRN PRN Reason: PAIN Last Admin: 06/19/16 03:24 Dose: 650 mg Acetaminophen (Tylenol -) 650 mg PO Q5H PRN PRN Reason: FEVER OR PAIN Apixaban (Eliquis -) 5 mg PO BID@0800,2000 [facility] Last Admin: 06/18/16 21:23 Dose: 5 mg Aspirin (Ecotrin -) 81 mg PO DAILY [facility] Last Admin: 06/18/16 10:27 Dose: 81 mg Atorvastatin Calcium (Lipitor -) 10 mg PO HS [facility] Last Admin: 06/18/16 21:23 Dose: 10 mg Epoetin Campos (Procrit -) 10,000 unit IVPUSH ONCE ONE Stop: 06/19/16 12:01 Fenofibric Acid (Trilipix -) 45 mg PO DAILY [facility] Last Admin: 06/18/16 10:27 Dose: 45 mg Furosemide (Lasix -) 80 mg PO DAILY [facility] Last Admin: 06/18/16 10:27 Dose: 80 mg Levofloxacin (Levaquin -) 250 mg PO DAILY@0600 [facility] Last Admin: 06/19/16 06:49 Dose: 250 mg Metoprolol Succinate (Toprol Xl -) 50 mg PO BID [facility] Last Admin: 06/18/16 21:23 Dose: 50 mg Morphine Sulfate (Ms Contin -) 30 mg PO BID [facility] Last Admin: 06/18/16 21:23 Dose: 30 mg Sertraline HCl (Zoloft -) 50 mg PO DAILY [facility] Last Admin: 06/18/16 10:27 Dose: 50 mg Sitagliptin Phosphate (Januvia -) 25 mg PO ACBK [facility] Last Admin: 06/19/16 06:50 Dose: Not Given Sodium Thiosulfate (Sodium Thiosulfate) 25 gm IV MoWeFr@1200 [facility] Last Admin: 06/16/16 11:40 Dose: 25 gm A/P 60 year old gentleman with PMhx of ESRD (recently started on dialysis), CAD s/p CABG, DM Type 2, Depression, CHF who with LE weakness s/p recent fall and wound on right foot. #PVD/Cyanosis Wound Care Phyiscal Therapy Vascular Follow up #ESRD on HD with fluid overload HD today with Goal UF of 3L will need continued aggressive UF and HD as inpatient or outpatient #Caliphyalxis Continue sodium thiosulfate IVPB with dialysis 3x weekly with HD holding Renvela because of low phos 2.7 today (phos of 1.1 was right after dialysis so not accurate) Won Weiss DO
[2016-06-19] MEDS ORDERED: EPOETIN ALFA 10,000 UNIT/1 ML VIAL IVPUSH ONE (12:00)
[2016-06-19] MEDS: SODIUM THIOSULFATE 12.5 GM/50 ML VIAL IV SCH (12:22)
[2016-06-19] MEDS: APIXABAN 5 MG TABLET PO SCH ×3 (15:30→21:11)
[2016-06-19] MEDS: METOPROLOL SUCCINATE 50 MG TAB.SR.24H (FP) PO SCH ×3 (15:31→21:11)
[2016-06-19] MEDS: ASPIRIN COATED 81 MG TABLET.EC PO SCH ×2 (15:31→15:43)
[2016-06-19] MEDS: morphine SO4 SUSTAINED ACTING 15 MG TABLET.SA PO SCH ×3 (15:31→21:11)
[2016-06-19] MEDS: FENOFIBRIC ACID 45 MG CAP PO SCH ×2 (15:31→15:43)
[2016-06-19] MEDS: FUROSEMIDE 40 MG TABLET (FP) PO SCH ×2 (15:31→15:43)
[2016-06-19] MEDS: SERTRALINE HCL 50 MG TABLET (FP) PO SCH ×2 (15:32→15:44)
--- NOTE | 2016-06-19 19:16 | PN ---
Progress Note (short form) - Note Progress Note: Left TMA wound unchanged - incision at medial edge with bloody drainage. Right calf has open blister on posterior side with copious serous drainage. Would continue antibiotics, leg elevation. Unsure if TMA will heal.
[2016-06-19] MEDS ORDERED: PT OWN MED DRAWER 7, Y5N ONE (20:07)
--- NOTE | 2016-06-19 20:43 | PN ---
Progress Note, Physician History of Present Illness: No new complaints Pt awaiting placement in SNF - Current Medication List Current Medications: Active Medications Acetaminophen (Tylenol -) 650 mg PO Q6H PRN PRN Reason: PAIN Last Admin: 06/19/16 03:24 Dose: 650 mg Acetaminophen (Tylenol -) 650 mg PO Q5H PRN PRN Reason: FEVER OR PAIN Apixaban (Eliquis -) 5 mg PO BID@0800,2000 [facility] Last Admin: 06/19/16 15:44 Dose: 5 mg Aspirin (Ecotrin -) 81 mg PO DAILY [facility] Last Admin: 06/19/16 15:43 Dose: 81 mg Atorvastatin Calcium (Lipitor -) 10 mg PO HS [facility] Last Admin: 06/18/16 21:23 Dose: 10 mg Fenofibric Acid (Trilipix -) 45 mg PO DAILY [facility] Last Admin: 06/19/16 15:43 Dose: 45 mg Furosemide (Lasix -) 80 mg PO DAILY [facility] Last Admin: 06/19/16 15:43 Dose: 80 mg Levofloxacin (Levaquin -) 250 mg PO DAILY@0600 [facility] Last Admin: 06/19/16 06:49 Dose: 250 mg Metoprolol Succinate (Toprol Xl -) 50 mg PO BID [facility] Last Admin: 06/19/16 15:43 Dose: 50 mg Morphine Sulfate (Ms Contin -) 30 mg PO BID [facility] Last Admin: 06/19/16 15:45 Dose: 30 mg Sertraline HCl (Zoloft -) 50 mg PO DAILY [facility] Last Admin: 06/19/16 15:44 Dose: 50 mg Sitagliptin Phosphate (Januvia -) 25 mg PO ACBK [facility] Last Admin: 06/19/16 06:50 Dose: Not Given Sodium Thiosulfate (Sodium Thiosulfate) 25 gm IV MoWeFr@1200 [facility] Last Admin: 06/19/16 12:22 Dose: 25 gm - Objective Vital Signs: Vital Signs Temperature 97.9 F 06/19/16 14:52 Pulse Rate 84 06/19/16 14:20 Respiratory Rate 18 06/19/16 14:20 Blood Pressure 110/64 06/19/16 14:20 O2 Sat by Pulse Oximetry (%) 95 06/19/16 09:00 Constitutional: Yes: Well Nourished HENT: Yes: WNL Neck: Yes: Supple Cardiovascular: Yes: WNL, Pulse Irregular Respiratory: Yes: WNL, Regular, CTA Bilaterally Gastrointestinal: Yes: WNL, Normal Bowel Sounds, Abdomen, Obese Extremities: Yes: Other ((+) lt foot partial amputation in bandages) Labs: CBC, BMP 06/19/16 10:00 06/19/16 10:30 INR, PTT INR 1.59 (0.82-1.09) H 05/11/16 13:20 Problem List - Problems (1) PAD (peripheral artery disease) Assessment/Plan: S/P partial amputation Lt foot Pt awaiting placement DC pt in am Will reconsult ID about slightly increased WBC Code(s): I73.9 - PERIPHERAL VASCULAR DISEASE, UNSPECIFIED (2) Afib Assessment/Plan: Heart rate controlled Cont metoprolol Cont eliquis Code(s): I48.91 - UNSPECIFIED ATRIAL FIBRILLATION (3) End stage renal disease Assessment/Plan: Dialysis as per renal Monitor electrolytes Cont renvela Code(s): N18.6 - END STAGE RENAL DISEASE (4) Cellulitis of foot Assessment/Plan: Pt had angioplasty of popitial tibial Chronic lt foot ulcer S/P B/L stenting of common iliacs Pt is now off antibxs Code(s): L03.119 - CELLULITIS OF UNSPECIFIED PART OF LIMB (5) Dyspnea Code(s): R06.00 - DYSPNEA, UNSPECIFIED (6) Congestive heart failure Code(s): I50.9 - HEART FAILURE, UNSPECIFIED Qualifiers: Qualified Code(s): I50.23 - Acute on chronic systolic (congestive) heart failure (7) HTN (hypertension) Code(s): I10 - ESSENTIAL (PRIMARY) HYPERTENSION (8) Diabetes Code(s): E11.9 - TYPE 2 DIABETES MELLITUS WITHOUT COMPLICATIONS (9) Anemia Code(s): D64.9 - ANEMIA, UNSPECIFIED Qualifiers: Qualified Code(s): D64.9 - Anemia, unspecified (10) HLD (hyperlipidemia) Code(s): E78.5 - HYPERLIPIDEMIA, UNSPECIFIED
[2016-06-19] MEDS: ATORVASTATIN CA 10 MG TABLET (FP) PO SCH (21:11)
[2016-06-20] MEDS: ACETAMINOPHEN 325 MG TABLET (FP) PO PRN (01:30)
[2016-06-20] MEDS ORDERED: KETOROLAC TROMETHAMINE 30 MG/1 ML VIAL IM ONE (01:45)
[2016-06-20] MEDS: LEVOFLOXACIN 250 MG TABLET (FP) PO SCH (05:49)
[2016-06-20] MEDS: sitaGLIPtin PHOSPHATE 25 MG TABLET (FP) PO SCH (06:34)
[2016-06-20 07:25] LABS: BASOPHIL 1.5 % (0-2.0); EOSINOPHIL 1.6 % (0-4.5); MCH 27.2 pg (25.7-33.7); MCHC 30.9 g/dl (32.0-35.9); MEAN CELL VOLUME 88.3 fl (80-96); MEAN PLT VOLUME 8.5 fl (7.5-11.1); NEUTROPHILS 73.1 % (42.8-82.8); PLATELET COUNT 338 K/MM3 (134-434); RDW 17.3 % (11.9-15.9); WHITE BLOOD COUNT 11.2 K/mm3 (4.0-10.0)
[2016-06-20 07:55] LABS: ALBUMIN 2.4 g/dl (3.4-5.0); BILIRUBIN,TOTAL 0.6 mg/dL (0.2-1.0); CALCIUM 8.3 mg/dL (8.5-10.1); COCKROFT - GAULT 28.57; CREATININE 3.7 mg/dL (0.7-1.3); TOT PROT 6.5 g/dl (6.4-8.2)
[2016-06-20 08:06] LABS: HEP B SURFACE AB Non Reactive (.)
[2016-06-20] MEDS ORDERED: PT OWN MED DRAWER 7, Y5N ONE (10:43)
[2016-06-20] MEDS: APIXABAN 5 MG TABLET PO SCH (10:57)
[2016-06-20] MEDS: SERTRALINE HCL 50 MG TABLET (FP) PO SCH (10:57)
[2016-06-20] MEDS: FUROSEMIDE 40 MG TABLET (FP) PO SCH (10:57)
[2016-06-20] MEDS: ASPIRIN COATED 81 MG TABLET.EC PO SCH (10:57)
[2016-06-20] MEDS: METOPROLOL SUCCINATE 50 MG TAB.SR.24H (FP) PO SCH (10:57)
[2016-06-20] MEDS: FENOFIBRIC ACID 45 MG CAP PO SCH (10:57)
[2016-06-20] MEDS: morphine SO4 SUSTAINED ACTING 15 MG TABLET.SA PO SCH (10:57)
--- NOTE | 2016-06-20 11:23 | PN ---
Progress Note (short form) - Note Progress Note: Renal Follow up for ESRD Pt seen and examined at the bedside no acute complaints upset about being discharged to rehab no sob or chest pain has weeping edema in LE Vital Signs Temperature 97.3 F L 06/20/16 06:00 Pulse Rate 96 H 06/20/16 06:00 Respiratory Rate 20 06/20/16 06:00 Blood Pressure 116/71 06/20/16 06:00 O2 Sat by Pulse Oximetry (%) 98 06/19/16 22:00 Intake & Output 06/17/16 06/18/16 06/19/16 06/20/16 23:59 23:59 23:59 23:59 Intake Total 250 700 600 0 Output Total 0 100 200 Balance 250 600 400 0 Weight 205 lb 12.8 oz 208 lb 6.4 oz 215 lb 2 oz Gen: awake and alert CVS: RRR, No M/R Lungs: CTA, Abd: soft NT/ND Ext: left foot in dressing CBC, BMP 06/20/16 06:35 06/20/16 06:35 Laboratory Tests 06/20/16 06:35 Calcium 8.3 L Albumin 2.4 L Current Medications Acetaminophen (Tylenol -) 650 mg PO Q6H PRN PRN Reason: PAIN Last Admin: 06/20/16 01:30 Dose: 650 mg Acetaminophen (Tylenol -) 650 mg PO Q5H PRN PRN Reason: FEVER OR PAIN Apixaban (Eliquis -) 5 mg PO BID@0800,2000 [facility] Last Admin: 06/20/16 10:57 Dose: 5 mg Aspirin (Ecotrin -) 81 mg PO DAILY [facility] Last Admin: 06/20/16 10:57 Dose: 81 mg Atorvastatin Calcium (Lipitor -) 10 mg PO HS [facility] Last Admin: 06/19/16 21:11 Dose: 10 mg Fenofibric Acid (Trilipix -) 45 mg PO DAILY [facility] Last Admin: 06/20/16 10:57 Dose: 45 mg Furosemide (Lasix -) 80 mg PO DAILY [facility] Last Admin: 06/20/16 10:57 Dose: 80 mg Levofloxacin (Levaquin -) 250 mg PO DAILY@0600 [facility] Last Admin: 06/20/16 05:49 Dose: 250 mg Metoprolol Succinate (Toprol Xl -) 50 mg PO BID [facility] Last Admin: 06/20/16 10:57 Dose: 50 mg Morphine Sulfate (Ms Contin -) 30 mg PO BID [facility] Last Admin: 06/20/16 10:57 Dose: 30 mg Sertraline HCl (Zoloft -) 50 mg PO DAILY [facility] Last Admin: 06/20/16 10:57 Dose: 50 mg Sitagliptin Phosphate (Januvia -) 25 mg PO ACBK [facility] Last Admin: 06/20/16 06:34 Dose: Not Given Sodium Thiosulfate (Sodium Thiosulfate) 25 gm IV MoWeFr@1200 [facility] Last Admin: 06/19/16 12:22 Dose: 25 gm A/P 60 year old gentleman with PMhx of ESRD (recently started on dialysis), CAD s/p CABG, DM Type 2, Depression, CHF who with LE weakness s/p recent fall and wound on right foot. #PVD/Cyanosis Dressing changes Vascular Follow up Physical Therapy #ESRD on HD with fluid overload For Extra HD today with goal UF of 2.5L as tolerated #Caliphyalxis Continue sodium thiosulfate IVPB with dialysis 3x weekly with HD (to continue in outpatient dialysis unit) holding Renvela because of low phos 2.7 today (phos of 1.1 was right after dialysis so not accurate) Won Weiss DO
[2016-06-20 14:49] VITALS: BP 127/61; PULSE 91; TEMP 97.3
--- NOTE | 2016-06-20 15:45 | PN ---
Progress Note, Physician History of Present Illness: Awake, alert No c/o foot pain No fever/ chills Afebrile WBC remains slightly elevated at 11k - Current Medication List Current Medications: Active Medications Acetaminophen (Tylenol -) 650 mg PO Q6H PRN PRN Reason: PAIN Last Admin: 06/20/16 01:30 Dose: 650 mg Acetaminophen (Tylenol -) 650 mg PO Q5H PRN PRN Reason: FEVER OR PAIN Apixaban (Eliquis -) 5 mg PO BID@0800,2000 [facility] Last Admin: 06/20/16 10:57 Dose: 5 mg Aspirin (Ecotrin -) 81 mg PO DAILY [facility] Last Admin: 06/20/16 10:57 Dose: 81 mg Atorvastatin Calcium (Lipitor -) 10 mg PO HS [facility] Last Admin: 06/19/16 21:11 Dose: 10 mg Fenofibric Acid (Trilipix -) 45 mg PO DAILY [facility] Last Admin: 06/20/16 10:57 Dose: 45 mg Furosemide (Lasix -) 80 mg PO DAILY [facility] Last Admin: 06/20/16 10:57 Dose: 80 mg Levofloxacin (Levaquin -) 250 mg PO DAILY@0600 [facility] Last Admin: 06/20/16 05:49 Dose: 250 mg Metoprolol Succinate (Toprol Xl -) 50 mg PO BID [facility] Last Admin: 06/20/16 10:57 Dose: 50 mg Morphine Sulfate (Ms Contin -) 30 mg PO BID [facility] Last Admin: 06/20/16 10:57 Dose: 30 mg Sertraline HCl (Zoloft -) 50 mg PO DAILY [facility] Last Admin: 06/20/16 10:57 Dose: 50 mg Sitagliptin Phosphate (Januvia -) 25 mg PO ACBK [facility] Last Admin: 06/20/16 06:34 Dose: Not Given Sodium Thiosulfate (Sodium Thiosulfate) 25 gm IV MoWeFr@1200 [facility] Last Admin: 06/19/16 12:22 Dose: 25 gm - Objective Vital Signs: Vital Signs Temperature 97.3 F L 06/20/16 14:47 Pulse Rate 91 H 06/20/16 14:47 Respiratory Rate 18 06/20/16 14:35 Blood Pressure 127/61 06/20/16 14:47 O2 Sat by Pulse Oximetry (%) 100 06/20/16 08:00 Constitutional: Yes: No Distress Cardiovascular: Yes: Regular Rate and Rhythm, S1, S2 Respiratory: Yes: CTA Bilaterally Gastrointestinal: Yes: Normal Bowel Sounds, Soft. No: Tenderness Extremities: Yes: Other (L TMA site with sutures intact. No erythema or drainage. Superficial ulcer R calf. No drainage. Dry necrotic ulcer R medial thigh + dry gangrene distal 4th fingers bilat) Labs: CBC, BMP 06/20/16 06:35 06/20/16 06:35 INR, PTT INR 1.59 (0.82-1.09) H 05/11/16 13:20 Assessment/Plan Cellulitis LE- resolved Peripheral vascular disease s/p common iliac stents S/P L TMA Dry gangene of digits ESRD Chronic venous stasis dermatitis Leukocytosis, likely secondary to gangrene No evidence of active skin or systemic infection Observe off antibiotics Local wound care
== END 2016-06-20 18:55 | DRG 270 ==
LOC: JER 12:34 → JERBED 15:00 → J4W 21:54 → J6S 05-27 22:28
PROVIDERS: ADMIT Internal Medicine; ATTEND Internal Medicine
PROC: 041 Lower Arteries, Bypass (ICD-10-PCS; 2016-05-26)
PROC: 047D3D6 (ICD-10-PCS; 2016-05-26)
PROC: 047C3D6 (ICD-10-PCS; 2016-05-26)
PROC: B40DYZZ Plain Radiography of Aorta and Bilateral Lower Extremity Arteries using Other Contrast (ICD-10-PCS; 2016-05-26)
PROC: 04CL3ZZ Extirpation of Matter from Left Femoral Artery, Percutaneous Approach (ICD-10-PCS; 2016-06-01)
PROC: 047L3ZZ Dilation of Left Femoral Artery, Percutaneous Approach (ICD-10-PCS; 2016-06-01)
PROC: 047S3ZZ Dilation of Left Posterior Tibial Artery, Percutaneous Approach (ICD-10-PCS; 2016-06-01)
PROC: B40DYZZ Plain Radiography of Aorta and Bilateral Lower Extremity Arteries using Other Contrast (ICD-10-PCS; 2016-06-01)
PROC: 0Y6N0Z0 Detachment at Left Foot, Complete, Open Approach (ICD-10-PCS; principal; 2016-06-07 15:00)
PROC: 30233N1 Transfusion of Nonautologous Red Blood Cells into Peripheral Vein, Percutaneous Approach (ICD-10-PCS; 2016-06-09)
PROC: 5A1D60Z (ICD-10-PCS; 2016-06-19)
DX: E11.52 Type 2 diabetes mellitus with diabetic peripheral angiopathy with gangrene (principal); I50.23 Acute on chronic systolic (congestive) heart failure; N18.6 End stage renal disease; L03.116 Cellulitis of left lower limb; I48.92 Unspecified atrial flutter; I13.2 Hypertensive heart and chronic kidney disease with heart failure and with stage 5 chronic kidney disease, or end stage renal disease; E87.70 Fluid overload, unspecified; I25.10 Atherosclerotic heart disease of native coronary artery without angina pectoris; Z95.1 Presence of aortocoronary bypass graft; I48.91 Unspecified atrial fibrillation; D64.9 Anemia, unspecified; E78.5 Hyperlipidemia, unspecified; E11.22 Type 2 diabetes mellitus with diabetic chronic kidney disease; E11.621 Type 2 diabetes mellitus with foot ulcer; L97.529 Non-pressure chronic ulcer of other part of left foot with unspecified severity; F41.9 Anxiety disorder, unspecified; F32.9 Major depressive disorder, single episode, unspecified; K21.9 Gastro-esophageal reflux disease without esophagitis; J44.9 Chronic obstructive pulmonary disease, unspecified; I27.2 Other secondary pulmonary hypertension; I87.2 Venous insufficiency (chronic) (peripheral); Z87.891 Personal history of nicotine dependence; I70.248 Atherosclerosis of native arteries of left leg with ulceration of other part of lower leg
CPT/HCPCS: 36415; 36430; 71010-TC; 73523-TC; 75635-TC; 76000-TC; 80048; 80053; 82272; 82550; 82565; 82728; 83540; 83550; 83735; 83880; 84100; 84132; 84153; 84484; 84520; 85025; 85027; 85610; 86704; 86706; 86708; 86850; 86900; 86901; 86922; 87040; 87340; 88305-TC; 88311-TC; 93005; 93010; 93923; 93925-TC; 93931; 93971-TC; 94760; 94761; 97116-GP; 97161-GP; 99284-25; G0480; J0885; J1644; P9038; P9058